=== PATIENT | female | born 1960 | race Caucasian/White ===

== ENCOUNTER 2020-06-06 02:25 | Outpatient (CLI) | payer OTHER, SELFPAY ==
[2020-06-06 09:34] LABS: BUN 16 mg/dL (7-18); CREATININE 0.89 mg/dL (0.55-1.02); Calcium 8.8 mg/dL (8.5-10.1); Calculated LDL 162 mg/dL (<100); Chloride 104 mmol/L (98-107); Cholesterol 246 mg/dL (<200); Glucose 99 mg/dL (74-106); HDL Cholesterol 69 mg/dL (40-60); Potassium 4.6 mmol/L (3.5-5.1); Sodium 138 mmol/L (136-145); Triglyceride 77 mg/dL (<150)
== END 2020-06-06 02:45 ==
PROVIDERS: PCP Nurse Practitioner Family; Visit Provider Nurse Practitioner Family
DX: E78.5 Hyperlipidemia, unspecified (principal); M85.80 Other specified disorders of bone density and structure, unspecified site
CPT/HCPCS: 36415; 80048; 80061; 82306

== ENCOUNTER 2020-07-19 02:10 | Outpatient (CLI) | payer OTHER, SELFPAY ==
--- NOTE | 2020-07-19 12:55 | DI.DEXA_ITS ---
EXAM: XR DEXA BONE DENSITY W/WO LIGIA CLINICAL HISTORY: Osteopenia,M85.80 TECHNIQUE: [employer] C densitometer COMPARISON: No exams were available for comparison FINDINGS: The lateral view of the thoracic in the lumbar spine shows no evidence compression fracture. Bone mineral density measurements of the lumbar spine correspond to a total T-score of -0.5, in the n ormal range. The bone mineral density measurements of the left hip correspond to a total T-score of -1.4 and a fem oral neck T-score of -2.1, in the osteopenic range. The bone mineral density measurements of the left forearm correspond to a T-score in the distal 3rd o f -0.1, in the normal range. IMPRESSION: Osteopenia of the left hip. Normal bone mineral density of the lumbar spine and left forearm.
--- NOTE | 2020-07-19 13:49 | DI.MAMMO_ITS ---
EXAM: MAMMO SCREENING CLINICAL HISTORY: screening,Z12.39 TECHNIQUE: Mammograms were interpreted according to the usual protocol including computer analysis w [employer] CAD system, tomosynthesis and C-view imaging. COMPARISON: 2010 through 2017 [facility] FINDINGS: The breasts are composed of heterogeneously dense fibroglandular densities, Breast Density category C . No suspicious masses or suspicious microcalcifications are seen. Vascular calcifications are inciden tally noted. No skin thickening or abnormal axillary lymph nodes are seen. There has been no significant change from prior exams. IMPRESSION: BI-RADS Category 1, Negative mammogram. Yearly screening mammography is recommended. Breast Density Category C, heterogeneously Dense. The mammogram demonstrates the patient's breast tissue is dense. Dense breast tissue is very common a nd is not abnormal but dense breast tissue can make it harder to find cancer on a mammogram. Also, de nse breast tissue may increase breast cancer risk. This information about the result of the mammogram report was provided to the patient to raise their awareness. Use this report when you speak with the patient about their risks for breast cancer, which includes their family history. At that time, you may recommend additional screening tests (Ultrasound or MRI) as they might be useful based on their r isk. A negative radiographic report should not delay biopsy if a dominant or clinically suspicious mass is present. Up to ten percent of cancers are not identified on mammography. A negative report may reinforce clinical impression. Adenosis and dense breasts may obscure an underlying neoplasm. False positive reports average 6 to 10%.
== END 2020-07-19 02:30 ==
PROVIDERS: PCP Nurse Practitioner Family; Visit Provider Nurse Practitioner Family
DX: Z12.31 Encounter for screening mammogram for malignant neoplasm of breast (principal); M85.88 Other specified disorders of bone density and structure, other site; R92.1 Mammographic calcification found on diagnostic imaging of breast
CPT/HCPCS: 77063; 77067; 77080

== ENCOUNTER 2021-04-26 08:07 | Day surgery (SDC) | payer OTHER, SELFPAY ==
[2021-04-26 08:23] VITALS: BP 149/73; PULSE 77; RESP 16; TEMP 36.2; O2SAT 97
[2021-04-26] MEDS: Lactated Ringers 1,000 ML 80 ML IV (08:35)
--- NOTE | 2021-04-26 08:38 | W.ANESPRE ---
General Info Date of Service Date Performed: 04/26/21 Height: 5 ft 8.11 in Weight: 74.3 kg Body Mass Index (BMI): 24.8 Surgical Procedure: Operation Date: 04/26/21 09:20 Proposed Procedures Side Surgeon paola Monsalve, DO Meds Allergies and Home Medications Allergies Allergy/AdvReac Type Severity Reaction Status Date / Time bee venom protein (honey bee) Allergy Severe Unverified 04/26/21 08:18 cyclobenzaprine Allergy Severe Verified 04/26/21 08:18 hornet venom Allergy Severe Verified 04/26/21 08:18 venom-wasp Allergy Severe Verified 04/26/21 08:18 esomeprazole [From Nexium] Allergy Intermediate Verified 04/26/21 08:18 yellow dye Allergy Intermediate Verified 04/26/21 08:18 orphenadrine [From Norflex] Allergy Mild Verified 04/26/21 08:18 red (food color) AdvReac Intermediate Unverified 04/26/21 08:18 Home Medication Medication Instructions Recorded gabapentin 600 mg tablet 600 mg PO TID #270 tab 05/11/20 calcium carbonate 500 mg calcium 500 mg PO DAILY 04/12/21 (1,250 mg) tablet ibuprofen 200 mg capsule 200 mg PO Q6H PRN 04/12/21 cephalexin [Keflex] 500 mg PO QID 04/24/21 acetaminophen [Tylenol Extra 500 mg PO Q6H PRN 04/26/21 Strength] Current Visit Medications: Current Medications Generic Name Dose Route Start Last Admin Trade Name Freq PRN Reason Stop Dose Admin Ringer's Solution 1,000 mls @ 80 mls/hr 04/26/21 06:00 IV 05/25/21 23:59 INFUSION ARELI IV Miscellaneous Supplies 1 each 04/26/21 06:00 Iv Access IV 05/25/21 23:59 DIRECTED ARELI Sodium Chloride 0 ml 04/26/21 06:00 Normal Saline Flush 10 Ml Syr IV 05/25/21 23:59 PRN PRN Sodium Chloride 0 ml 04/26/21 06:00 Normal Saline 10 Ml Vial IJ 05/25/21 23:59 DIRECTED PRN Sterile Water 0 ml 04/26/21 06:00 Water,Injection,Sterile 10 Ml Vial IJ 05/25/21 23:59 DIRECTED PRN PFSH Active Problems Active Problems: Problem Status Onset Code Degenerative disc disease, lumbar M51.36 Osteopenia M85.80 Hyperlipidemia E78.5 Medical History Medical History Degenerative disc disease, lumbar Hyperlipidemia Lumbar disc herniation Osteopenia Scoliosis Surgical History Surgical History S/P cervical discectomy (03/23/17) C7 S/P colonoscopy (~2009) S/P left rotator cuff repair (09/24/18) and SLAP Type II repair S/P medial meniscus repair of left knee (12/01/10) Status post lumbar laminectomy (~07/2012) Of L5-S1 with left L4-L5 hemilaminotomy, medial facetectomy, foraminotomy Status post ORIF of fracture of ankle (06/27/19) Right ankle Tobacco Smoking/Tobacco Use Status: Former Tobacco Use Passive smoking exposure: Yes Second hand exposure: Yes Alcohol Alcohol Intake: current Alcohol intake frequency: 0-2 drinks per day Alcohol type: beer Substance Use Substance use: Never Substance use type: does not use Prental History History 0 Para Hx # Term Pregnancies Multiple births Hx # Pregnancies Ectopic pregnancies AB induced Hx Number of Living Children AB spontaneous Vital Signs and Lab Results Vital Signs Most Recent Vital Signs in EMR: Most Recent Vital Signs Temp Pulse Resp BP Pulse Ox 36.2 C L 77 16 149/73 H 97 04/26/21 08:23 04/26/21 08:23 04/26/21 08:23 04/26/21 08:23 04/26/21 08:23 Lab Results Blood Type / Crossmatch: No Data to Display Complete Blood Count: No Data to Display Complete Metabolic Panel: No Data to Display Liver Function Panel: No Data to Display Coagulation Panel: No Data to Display Cardiac Panel: No Data to Display Arterial Blood Gas: No Data to Display Venous Blood Gas: No Data to Display Pancreas Panel: No Data to Display Thyroid Panel: No Data to Display Infectious Disease: No Data to Display Blood Cultures: No Data to Display Toxicology Panel: No Data to Display Anesthesia Assessment and Plan Anesthesia History Personal History: No History of Anesthesia Complications Family History: No Family History of Anesthesia Complications Exercise Tolerance Exercise Tolerance: Metabolic Equivalents>4 Pertinent Negatives Pertinent Negatives: No Symptoms of GERD, No Major Cardiovascular Symptoms or Complaints, No Major Pulmonary Symptoms or Complaints and No History of CVA/TIA Cardiac & Pulmonary Exam Cardiac Exam: Normal S1/S2 Heart Sounds Pulmonary Exam: Clear Bilateral Breath Sounds Airway Exam Known Difficult Airway: No Mallampati Class: 1 Mouth Opening: Normal (> 3cm) Thyromental Distance: Greater than 3 cm Neck Range of Motion: Full ROM Neck Circumference: Normal Teeth Condition: Normal Dentition ASA Classification ASA Score: ASA 2 Emergency Case?: No NPO Status NPO Status: NPO Clears >2 hours, Solids >8 hours Anesthesia Plan Resuscitation Status: Full Code Anesthesia Technique: General Anesthesia Airway Planned: Natural Airway Monitors Used: Standard Monitors
[2021-04-26 08:44] VITALS: BMI 24.8
--- NOTE | 2021-04-26 09:40 | W.COLOREPORT ---
Date of service: 04/26/21 Time of Service: 09:40 Colonoscopy Report Date of procedure: 04/26/21 Pre-op diagnosis general: sreening Post-op diagnosis procedure note: other (divertic ) Surgeon: Yola Monsalve Anesthesia Type: General:No Airway Estimated blood loss (mL): 0 Pathology: none sent Complications: None Disposition: same day Prep: Miralax/Dulcolax Retraction Time: 9 mins Procedure Description: After informed consent was obtained the patient was taken to the procedure room and placed in a left decubitous position. Monitors were applied and a time out was done. The patients name, date of , procedure, allergies to medications and metal in their body was reviewed. The patient was then sedated. Once sedated and comfortable a rectal exam was done. External exam was normal. Internal exam revealed a normal sphincter tone and no palpable masses. The scope was then introduced and retrofelexed. No internal hemorrhoids were identified. The scope was then advanced to the cecum without good difficulty. The TI and appendiceal orifice were identified. The prep was good. The scope was then slowly retracted over 9 minutes back into the rectum. There are no polyps or AVMs visualized today. She has the very beginnings of diverticula, and there are just a few small scattered diverticuli in the sigmoid colon. There is no signs of active bleeding or infection.. The scope was removed and the patient was woken up and taken back to Same day surgery in stable condition. The patient tolerated the procedure well and there were no immediate complications. Follow up: The patient should follow up in 10 years unless they develop changes in bowel habits or other new gastrointestinal complaints.
[2021-04-26 09:42] VITALS: BP 110/57; PULSE 72; RESP 20; TEMP 36.5; O2SAT 95
--- NOTE | 2021-04-26 09:44 | PDOC.DSDIS_ITS ---
Discharge Plan Disposition Patient Disposition: HOME Condition: Good Discharge Details Reason For Visit: colon scope Attending Provider: Yola Monsalve Primary Care Provider: Savannah Brown Home Meds and New Rx's Prescriptions: Continued gabapentin 600 mg tablet 600 mg PO TID Qty: 270 RF: 4 calcium carbonate [Calcium 500] 500 mg calcium (1,250 mg) tablet 500 mg PO DAILY RF: 0 ibuprofen [Motrin IB] 200 mg capsule 200 mg PO Q6H PRNRF: 0 cephalexin 500 mg Capsule 500 mg PO QID RF: 0 acetaminophen [Tylenol Extra Strength] 500 mg Tablet 500 mg PO Q6H PRNRF: 0 Discharge Instructions Additional Instructions: DSU Colonoscopy Post- Op Instructions Instructions for Everyone who is given Anesthesia: For your safety, please do the following for the next twenty-four (24) hours: *Do Not operate a motor vehicle (car, truck, motorcycle, etc.) *Do Not drink alcoholic beverages or use any recreational drugs for the first 24 hours or while taking pain medications. The medications in your body may have a reaction that can be dangerous. *Do Not make any important decisions or sign any important papers. Findings: very few divertic. otherwise normal Make sure you are moving your bowels on a regular basis and avoid straining. IF you find that you are experiencing constipation- than start a fiber supplement, such as metamucil or benefiber Follow up:repeat in 10 yrs time 1. No lifting over 20 pounds or strenuous activity for the first 24 hours after your procedure. After 24 hours there are no restrictions on your activity but you may feel fatigued for a few days. 2. After you arrive home you may have a light meal and return to your normal diet as you can tolerate it without feeling sick to your stomach. 3. You may have a bloated, gaseous feeling in your belly (abdomen) after a colonoscopy. Passing gas and belching will help. Walking or lying down on your left side with your knees flexed may relieve the discomfort. Call the office at [phone] (Office) or [phone] (Hospital) right away if you notice any of the following: a.Vomiting of blood or ?coffee ground stools?. b.Rectal bleeding 1Tbsp, blood clots or continuous bleeding. c.Severe belly (abdominal) pain. d.A hard distended belly (abdomen) and an inability to pass gas. 4. Please don?t expect to have a normal BM (bowel movement) for 2-3 days after your procedure. 5. If there are questions regarding the findings of your procedure, please contact your doctor 6. If you are unable to contact your doctor with a problem, contact the hospital at [phone]. 7. Continue all your regular medications unless directed otherwise. I understand the above instructions and have no questions. Signature of Patient or Adult Escort Name of Responsible Adult Escort Signature of Nurse Date/Time Activity:: see above Diet:: see above Discharge Orders Discharge Orders: Discharge Order (Routine); Ordered 04/25/21 Ordered By: Yola Monsalve DS: Diagnosis Discharge Diagnosis (1) Diverticula of colon: Status: Acute
[2021-04-26 10:13] VITALS: BP 122/71; PULSE 62; RESP 16; TEMP 36.2; O2SAT 98
--- NOTE | 2021-04-26 10:42 | W.ANESPOSTOP ---
Postoperative Evaluation Date, Time and Location Date Performed: 04/26/21 Time Performed: 10:20 Patient Location: Day Surgery Unit Vital Signs Most Recent Imported Vital Signs: Most Recent Vital Signs Temp Pulse Resp BP Pulse Ox 36.2 C L 62 16 122/71 98 04/26/21 10:13 04/26/21 10:13 04/26/21 10:13 04/26/21 10:13 04/26/21 10:13 Pain Score Most Recent Pain Score: Most Recent Pain Score Pain Level 0 04/26/21 10:13 Assessment Mental Status: Awake (Alert & Oriented to Patient Baseline) Airway and Respiratory Function: Patent airway with normal (patient baseline) respiratory exam Cardiovascular Function: Hemodynamically Stable Hydration Status: Adequately Hydrated Nausea & Vomiting: No Nausea or Vomiting Pain: Pt. Denies Any Pain Peripheral Nerve Block: Patient did not receive a nerve block
== END 2021-04-26 10:25 | disposition home or self-care (01) ==
PROVIDERS: PCP Nurse Practitioner Family; Visit Provider Surgery
PROC: 0DJD8ZZ Inspection of Lower Intestinal Tract, Via Natural or Artificial Opening Endoscopic (ICD-10-PCS; CPT 45378; principal; 2021-04-26 09:15)
DX: Z12.11 Encounter for screening for malignant neoplasm of colon (principal); K57.30 Diverticulosis of large intestine without perforation or abscess without bleeding
CPT/HCPCS: 45378; J2001

== ENCOUNTER 2021-05-22 02:32 | Outpatient (CLI) | payer OTHER, SELFPAY ==
[2021-05-22 13:09] LABS: Anion Gap 7.7 mmol/L (3-11); BUN 17 mg/dL (7-18); CO2 30.3 mmol/L (21.0-32.0); CREATININE 0.8 mg/dL (0.55-1.02); Calcium 9.3 mg/dL (8.5-10.1); Calculated LDL 201 mg/dL (<100); Chloride 102 mmol/L (98-107); Cholesterol 292 mg/dL (<200); Glucose 91 mg/dL (74-106); HDL Cholesterol 79 mg/dL (40-60); Potassium 4.5 mmol/L (3.5-5.1); Sodium 140 mmol/L (136-145); TSH 1.34 uIU/mL (0.36-3.74); Triglyceride 61 mg/dL (<150)
[2021-05-22 13:25] LABS: FREE T4 0.85 ng/dL (0.76-1.46)
== END 2021-05-22 02:33 | disposition home or self-care (01) ==
PROVIDERS: PCP Nurse Practitioner Family; Visit Provider Nurse Practitioner Family
DX: E78.5 Hyperlipidemia, unspecified (principal); E04.9 Nontoxic goiter, unspecified
CPT/HCPCS: 36415; 80048; 80061; 84439; 84443

== ENCOUNTER 2021-07-22 00:16 | Outpatient (CLI) | payer OTHER, SELFPAY ==
--- NOTE | 2021-07-22 06:30 | DI.MAMMO_ITS ---
Exam(s) MAMMO SCREENING EXAM: MAMMO SCREENING CLINICAL HISTORY: screening,Z12.39. TECHNIQUE: Bilateral full field digital CC and MLO mammographic images were obtained with 3D tomosyn thesis and utilizing computer aided detection (CAD). COMPARISON: Prior mammograms dating back to 2011, the most recent being June 2020. FINDINGS: Fibroglandular tissue pattern is moderately dense, this decreasing the sensitivity mammogram for find ing hidden underlying lesions. There are no new spiculated masses nor malignant appearing microcalcification groups. There is no significant architectural distortion nor skin thickening-retraction. IMPRESSION: Moderately dense fibroglandular tissue. No obvious radiographic evidence of malignancy nor significa nt change compared to prior studies listed above. BI-RADS Cat 1 - Negative Breast Density - Category C - Heterogeneously dense Breast density Category C or D implies that the patient has dense breast tissue. Dense breast tissue can make it harder to find cancer on a mammogram. Dense breast tissue is also associated with an incr eased risk of breast cancer. This information about the result of the mammogram report was provided to the patient to raise their awareness. Use this report when you speak with the patient about their risks for breast cancer, which includes their family history. At that time, you may recommend additional screening tests (Ultrasoun d or MRI) as these tests may add significant information. A negative radiographic report should not delay biopsy if a dominant or clinically suspicious mass is present. Up to ten percent of cancers are not identified on mammography. A negative report may reinforce clinical impression. Adenosis and dense breasts may obscure an underlying neoplasm. False positive reports average 6 to 10%. Patient will receive a letter notifying them of these results.
== END 2021-07-22 00:36 ==
PROVIDERS: PCP Nurse Practitioner Family; Visit Provider Nurse Practitioner Family
DX: Z12.31 Encounter for screening mammogram for malignant neoplasm of breast (principal)
CPT/HCPCS: 77063; 77067

== ENCOUNTER 2021-10-25 15:03 | Emergency (ER) | payer OTHER, SELFPAY ==
[2021-10-25] VITALS (12 sets, daily range): BP systolic 109–171; BP diastolic 61–112; PULSE 64–80; RESP 14–21; TEMP 36.4; O2SAT 96–100
--- NOTE | 2021-10-25 15:49 | ED.GENADUL_ITS ---
Discharge Plan Disposition Patient Disposition: HOME Condition: Improving Discharge Details Chief Complaint: Nk/Back Pain Clinical Impression: Degenerative disc disease, lumbar Primary Care Provider: Savannah Brown ED Provider: Paxton Beckman Home Meds and New Rx's Prescriptions: New prednisone 50 mg tablet 50 mg PO DAILY 5 Days Qty: 5 RF: 0 oxycodone-acetaminophen [Endocet] 5-325 mg tablet 1 tab PO TID PRNQty: 7 RF: 0 Continued calcium carbonate [Calcium 500] 500 mg calcium (1,250 mg) tablet 500 mg PO DAILY RF: 0 ibuprofen [Motrin IB] 200 mg capsule 200 mg PO Q6H PRNRF: 0 gabapentin 600 mg tablet 600 mg PO TID Qty: 270 RF: 4 epinephrine 0.3 mg/0.3 mL auto-injector 0.3 ml IM Q5-15M PRN (Reason: hypersensitivity reaction) Qty: 2 RF: 4 rosuvastatin 5 mg tablet 5 mg PO DAILY Qty: 90 RF: 4 acetaminophen [Tylenol Extra Strength] 500 mg Tablet 500 mg PO Q6H PRNRF: 0 cetirizine [Zyrtec] 10 mg Tablet 10 mg PO PRN PRNRF: 0 Discharge Instructions Instructions: Acute Low Back Pain (ED) Additional Instructions: Your MRI shows degenerative changes throughout. There is a disc bulge at L4-5. There is prominence of the osteophyte disc complex to the left at L5-S1. Please call [facility] neurosurgery for a follow-up appointment. Take prednisone as prescribed. May use the provided prescription of Percocet if needed for severe or breakthrough pain. May use the provided Zofran if needed for nausea. Return to the emergency department for any acute concerns. Medical Decision Making 61-year-old female with a history of previous L4-5 S1 disc disease, status post discectomy with residual left leg numbness but no motor weakness or foot drop. She reports days of worsening and recurrent left low back pain that radiates to her buttock but not to the leg. It is worse with movement. Today she used the treadmill and did stretching and then had increasing onset of worsening pain. No loss of bowel or bladder control. She took Motrin at home earlier today. Patient does have diminished sensation is noted in exam but no motor weakness. Great toe proprioception is intact and reflexes at the patella are symmetric bilaterally. The access established home parenteral medications administered including anti- inflammatories. Patient referred for an MRI of the lumbar spine. MRI reveals multilevel degenerative changes with central and neuroforaminal stenosis. Most marked at L4-5 and L5-S1. See formal report. We discussed disc bulge at L4-5 as well as osteophyte disc prominence at L5-S1. She is improving with analgesia. I consented her for the use of a narcotic. We will place her on a burst of steroid. She is stable and improving. Appropriate for discharge to home. HPI General Mode of arrival: EMS . Date/Time Provider Initiated Documentation: 10/25/21 15:10 . Limitations to Documentation: no limitations . Information obtained by: patient and EMS . History of Present Illness 61 year old F presents to the emergency department with the chief complaint of Left low back pain, described as moderate, severe and similar to prior episodes, Quality is described as constant, and is localized to the back and left. Patient reports no radiation. Patient started experiencing this day(s) and it has been intermittent. Movement improves symptom(s), Rest worsens symptoms . Patient notes other (No change to bowel or bladder habits); denies headaches, syncope and weakness. Patient did receive the following treatments prior to arrival, none Related Data Home Medications Medication Instructions Recorded Confirmed calcium carbonate 500 mg calcium 500 mg PO DAILY 04/12/21 10/25/21 (1,250 mg) tablet ibuprofen 200 mg capsule 200 mg PO Q6H PRN 04/12/21 10/25/21 acetaminophen [Tylenol Extra 500 mg PO Q6H PRN 04/26/21 10/25/21 Strength] epinephrine 0.3 mg/0.3 mL 0.3 ml IM Q5-15M PRN #2 ea 05/16/21 10/25/21 injection, auto-injector gabapentin 600 mg tablet 600 mg PO TID #270 tab 05/16/21 10/25/21 rosuvastatin 5 mg tablet 5 mg PO DAILY #90 tab 05/29/21 10/25/21 cetirizine [Zyrtec] 10 mg PO PRN PRN 10/25/21 10/25/21 oxycodone-acetaminophen [Endocet] 1 tab PO TID PRN #7 tab 10/25/21 prednisone 50 mg PO DAILY 5 Days #5 tab 10/25/21 Previous Rx's Medication Instructions Recorded epinephrine 0.3 mg/0.3 mL 0.3 ml IM Q5-15M PRN #2 ea 05/16/21 injection, auto-injector gabapentin 600 mg tablet 600 mg PO TID #270 tab 05/16/21 rosuvastatin 5 mg tablet 5 mg PO DAILY #90 tab 05/29/21 oxycodone-acetaminophen [Endocet] 1 tab PO TID PRN #7 tab 10/25/21 prednisone 50 mg PO DAILY 5 Days #5 tab 10/25/21 Allergies Allergy/AdvReac Type Severity Reaction Status Date / Time bee venom protein (honey bee) Allergy Severe Unverified 10/25/21 15:10 cyclobenzaprine Allergy Severe Verified 10/25/21 15:10 hornet venom Allergy Severe Verified 10/25/21 15:10 venom-wasp Allergy Severe Verified 10/25/21 15:10 esomeprazole [From Nexium] Allergy Intermediate Verified 10/25/21 15:10 yellow dye Allergy Intermediate Verified 10/25/21 15:10 orphenadrine [From Norflex] Allergy Mild Verified 10/25/21 15:10 red (food color) AdvReac Intermediate Unverified 10/25/21 15:10 General Stated Complaint: Nk/Back Pain SUE: 3 Review of Systems Narrative: States that she has chronic left lower extremity numbness. No weakness, no change of bowel or bladder habit. No recent illness. Immunized and boosted against COVID-19. 6 systems were reviewed and otherwise negative PFSH All Active Problems (Updated 10/25/21 @ 17:45 by Paxton Beckman MD) Hyperlipidemia (Chronic) Osteopenia (Chronic) Degenerative disc disease, lumbar (Chronic) Sigmoid diverticulosis (Acute) Medical History Lumbar disc herniation Scoliosis Surgical History History of colonoscopy (~04/26/21) S/P cervical discectomy (03/23/17) C7 S/P colonoscopy (~2009) S/P left rotator cuff repair (09/24/18) and SLAP Type II repair S/P medial meniscus repair of left knee (12/01/10) Status post lumbar laminectomy (~07/2012) Of L5-S1 with left L4-L5 hemilaminotomy, medial facetectomy, foraminotomy Status post ORIF of fracture of ankle (06/27/19) Right ankle Family History Mother , 89 Stroke Father , 87 lung cancer Lung cancer Sister No problems noted. Sister No problems noted. Sister Breast cancer Brother No problems noted. Brother , at 65 of lung cancer Lung cancer Brother No problems noted. Maternal Grandfather No problems noted. Maternal Grandmother Stroke Breast cancer in her 80s Lung cancer Paternal Grandfather Heart disease Paternal Grandmother No problems noted. Social History Smoking/Tobacco Use Status: Former Tobacco Use tobacco type: cigarettes Quit Date: 09/28/07 Tobacco: How many years used: 25 Second Hand Exposure: Yes Smoking risk assessment performed?: Yes Alcohol Intake: current Alcohol Intake frequency: a few times a week Alcohol type: beer Drug use: Current Sobriety Substance use type: does not use Caregiver/Support person: No Household members: spouse Housing: house Communication Needs: None Do you need help understanding health information?: Rarely Pets and animals: Yes Pets and animals: dog(s) Sexually active: Yes Do you think of yourself as: straight/heterosexual Current gender identity: female What is your relationship status?: How often do you talk on the phone with friends or family?: three or more times per week How often do you get together with friends or relatives?: once per week How often do you attend sabianism or oriental orthodox services?: 1-3 times per year Do you belong to any clubs or organized social groups?: no Panel score (0-1 are the most socially isolated patients): 2 What type of physical activity do you participate in: walking and weight lifting Duration: 30-45 minutes/day Frequency: 3-4 times per week Pepper/Yazidism: No preference Special pepper needs: No Seatbelt use: always Helmet use: Yes Helmet use: always Drive intox or ride w/intox street flusher driver: No Do you feel safe at home: Yes Do you feel safe in your relationship?: Yes History History 0 Para Hx # Term Pregnancies Multiple births Hx # Pregnancies Ectopic pregnancies AB induced Hx Number of Living Children AB spontaneous Exam Narrative Exam Narrative: GEN: awake, alert, oriented 3. Pleasant, well groomed, interactive. HEAD: Normocephalic, atraumatic ENT: Mucous membranes moist, oropharynx unremarkable, External ear exam unremarkable EYES: PERRL, EOMI NECK: Full ROM, no LEON, no menigismus CHEST/RESP: Nontender, clear to auscultation bilateral, no wheeze/rhonchi/rales CARDIOVASCULAR: RRR, no murmur, rub parker. 2+ Rad pulse bilateral ABDOMEN: Soft, nontender, no mass. +Bowel sounds EXT: Full ROM, pain when extending the left leg against gravity but she is able to hold off the bed. Great toe proprioception intact bilaterally. Diminished sensation in the left leg both medial lateral thigh, lateral calf and lateral foot. Medial calf intact. Left SI joint is tender to palpation there is para muscular spasm present. 1+ reflex at the patella bilaterally Neuro: Grossly normal neurologic exam, conversant, interactive. Psych: Speech fluent, thoughts congruent, affect normal Course Vital Signs Vital signs: Vital Signs Temperature 36.4 C L 10/25/21 15:02 Pulse 80 10/25/21 15:02 Respiratory Rate 18 10/25/21 15:02 Blood Pressure 171/91 H 10/25/21 15:02 Pulse Oximetry 99 10/25/21 15:02 Temperature 36.4 C L 10/25/21 15:02 Temperature Source Skin 10/25/21 15:02 Pulse 70 10/25/21 15:26 Respiratory Rate 18 10/25/21 15:02 Respiratory Effort 10/25/21 15:12 Blood Pressure 136/112 H 10/25/21 15:26 Blood Pressure Mean 116 10/25/21 15:26 Blood Pressure Position Sitting 10/25/21 15:02 Pulse Oximetry 99 10/25/21 15:26 Oxygen Delivery Method Room Air 10/25/21 15:02 Oxygen Flow Rate 0 10/25/21 15:02 Pain Level 8 10/25/21 15:14
[2021-10-25] MEDS: HYDROmorphone 2 MG/ML VIAL 0.5 MG IVP (15:51)
--- NOTE | 2021-10-25 16:20 | DI.MRI_ITS ---
Exam(s) MR LUMBAR SPINE WO EXAM: MR LUMBAR SPINE WO CLINICAL HISTORY: L sided pain, prev Lumbar discectomy. TECHNIQUE: Multiplanar multisequence MRI of the Lumbar spine was performed. COMPARISON: CR XR DEXA BONE DENSITY W/WO LIGIA from 07/19/2020 FINDINGS: Bones: The last intervertebral disc space is designated the L5/S1 level for the numbering purpose of this examination. The vertebral body heights are well maintained. There is a left convex scoliosis of the lumbar spine. Degenerative endplate signal changes are seen particularly at L5-S1. Cord: The conus tip ends at the L1 level. It is of normal size and signal intensity. T12-L1: No disc herniations or bulges are present. No central spinal canal or neural foraminal stenos is. L1-2: No disc herniations or bulges are present. No central spinal canal or neural foraminal stenosis . L2-3: There is a mild diffuse disc bulge. No central spinal canal or neural foraminal stenosis. L3-4: No disc herniations or bulges are present. No central spinal canal or neural foraminal stenosis . L4-5: There is a diffuse disc bulge. It is eccentric to the right. Degenerative changes of the face ts and ligamentum flavum are noted. There is moderate narrowing of the central spinal canal. There is moderate right and mild left neural foraminal stenosis. L5-S1: There is prominence of the osteophyte disc complex eccentric to the left. No significant cent ral spinal canal stenosis. There are degenerative changes of the facets present. There is mild righ t and moderately severe left neural foraminal stenosis. Soft tissues: The visualized SI joints and sacrum are well maintained. The paraspinal soft tissues ar e unremarkable. IMPRESSION: Multilevel degenerative changes in the lumbar spine resulting in central spinal canal and neural fora lisa stenosis. Findings are most marked at L4-5 and L5-S1. Please see the above discussion for com plete details. DATA REPOSITORY:
[2021-10-25] MEDS: MAGNESIUM SULFATE 1 GM/100 ML BAG IVPB (16:30)
[2021-10-25] MEDS: ACETAMINOPHEN 1,000 MG/100 ML BTL 400 MG IVPB (16:30)
[2021-10-25] MEDS: Dexamethasone 10 MG/ML VIAL IVP (16:30)
[2021-10-25] MEDS: Normal Saline 1,000 ML 1000 ML IV (16:30)
[2021-10-25 17:41] LABS: Bilirubin Negative (Negative); Blood Negative (Negative); Clarity Cloudy (Clear); Glucose Negative (Negative); Ketones Negative (Negative); Leukocyte Esterase Negative (Negative); Nitrite Negative (Negative); Urobilinogen 0.2 EU/dL (Up TO 0.2); pH 7.5 (5-8)
[2021-10-25] MEDS: Ondansetron O.D.T. 4 MG TABEF, 3 TABS/BTL PO (17:57)
== END 2021-10-25 18:11 | disposition home or self-care (01) ==
PROVIDERS: Emergency Provider Emergency Medicine; PCP Nurse Practitioner Family
DX: M51.36 Other intervertebral disc degeneration, lumbar region (principal)
CPT/HCPCS: 96361; 96365; 96375; 99284; 72148; 81003; J0131; J1100; J3475

== ENCOUNTER 2021-10-27 04:47 | Emergency (ER) | payer OTHER, SELFPAY ==
[2021-10-27 04:52] VITALS: BP 152/80; PULSE 80; RESP 18; TEMP 36.4; O2SAT 96
--- NOTE | 2021-10-27 05:10 | ED.GENADUL_ITS ---
Discharge Plan Disposition Patient Disposition: HOME Condition: Good Discharge Details Clinical Impression: Degenerative disc disease, lumbar Primary Care Provider: Savannah Brown ED Provider: Maksim Romo Home Meds and New Rx's Prescriptions: Continued calcium carbonate [Calcium 500] 500 mg calcium (1,250 mg) tablet 500 mg PO DAILY RF: 0 ibuprofen [Motrin IB] 200 mg capsule 200 mg PO Q6H PRNRF: 0 gabapentin 600 mg tablet 600 mg PO TID Qty: 270 RF: 4 epinephrine 0.3 mg/0.3 mL auto-injector 0.3 ml IM Q5-15M PRN (Reason: hypersensitivity reaction) Qty: 2 RF: 4 rosuvastatin 5 mg tablet 5 mg PO DAILY Qty: 90 RF: 4 acetaminophen [Tylenol Extra Strength] 500 mg Tablet 500 mg PO Q6H PRNRF: 0 cetirizine [Zyrtec] 10 mg Tablet 10 mg PO PRN PRNRF: 0 prednisone 50 mg tablet 50 mg PO DAILY 5 Days Qty: 5 RF: 0 Discontinued oxycodone-acetaminophen [Endocet] 5-325 mg tablet 1 tab PO TID PRNQty: 7 RF: 0 Discharge Instructions Instructions: Back Pain (ED) Additional Instructions: At this time your MRI is reassuring. The results were reviewed with Dr. Webster from [facility]. At this time he sees no significant changes from your MRI in 2017 till now. Additionally thankfully your exam shows no clinical evidence of emergent surgical abnormality. Please continue to take the steroids, ibuprofen/Tylenol, and the narcotic pills only as needed. We have placed a referral with the [facility] spine center, they will contact you for an appointment time. Please call your primary care provider on Thursday to inform them of the recent work-ups you have received. If you notice any worsening of your symptoms, or any new symptoms such as vomiting, diarrhea, fever, chills, shortness of breath, chest pain, worsening numbness or tingling in your groin or legs, weakness in your legs, loss of control for your bowels or bladder, or fainting , please return immediately to the emergency department for reevaluation. Please follow up with your primary care provider as soon as possible for reassessment and reevaluation. As always, it was a pleasure participating in your medical care today. Referrals: Savannah Brown NP [Primary Care Provider] - Medical Decision Making This is a 61-year-old female with a past medical history of previous L4-5 S1 disc disease, status post discectomy with residual left leg numbness who presents today for back pain. Patient was evaluated 2 days ago on Thursday by Dr. Paxton Beckman. At that time after discussion with the patient's an MRI was ordered, MRI demonstrated Multilevel degenerative changes in the lumbar spine resulting in central spinal canal and neural foraminal stenosis. Findings are most marked at L4-5 and L5-S1. There is no evidence of neurosurgical emergency clinically or radiographically at that time, and the patient was discharged home with narcotic, steroid burst, who is already on gabapentin. Since then the patient has had continued pain in the left L1 dermatome. She st ates that it is a burning aching sensation. She states that it is relatively unchanged from her previous visit. She does have chronic left leg numbness which she states is unchanged. She denies any bowel or bladder incontinence. She denies any saddle anesthesia, or change in sensation with wiping. She denies any new weakness. She has been taking all the medications described in test finished the bottle of Heath without any improvement of her symptoms. She has not been able to schedule follow-up with her neurology group since it is the weekend. She has no other complaints at this time. Pain is made worse with movement. She denies any IV or illicit drug use. She denies any fever or chills. She denies any urinary complaints. Physical exam demonstrates no signs or symptoms concerning for cauda equina syndrome currently. Patient does have subjective burning pain in the left anterior lateral L1-L2 dermatome. No significant weakness of the lower extremity. No bowel or bladder incontinence. She has normal rectal tone on exam. No reproducible abdominal tenderness. At this time symptoms appear consistent with lumbar radiculopathy causing the sensation of pain that she is h aving. Unfortunately she is not had improvement steroids or NSAIDs. She has utilized all of her narcotic pain medications. Her who is present on the phone was a part of our conversation. We discussed how she is currently on the ideal treatment and that there is thankfully no clinical evidence at this time on exam of a neurosurgical emergency. has requested transfer to [facility]. I did discuss with the patient and that with no evidence of neurosurgical emergency that transfer would not be needed at this time. then requested that a neurosurgeon review the images prior to discharge. We will reach out to [facility] for further discussion of this. We will give IM morphine in the meantime to help with the patient's pain. 5:41 AM Discussed the case with Dr. Webster of [facility] neurosurgery. He reviewed the MRI from 2017 as well as the MRI from 2 days ago. At this time he sees no evidence of emergent surgical abnormality. In fact he is encouraged since he has no significant changes between the previous and current MRI. He does agree with the current management of NSAIDs, steroids, and narcotics as needed. He does recommend close outpatient follow-up. We will place a referral with the [facility] spine center. I spent time discussing with the patient and her signs and symptoms concerning that would require emergent reevaluation in the ER understand. We will recommend continuation of her home medications. We will give her 4 Heath tablets in the meantime. I have extensively reviewed the treatment plan and discharge instructions with the patient and their family. I have addressed all patient concerns at this time. The patient and family was made aware of what symptoms to monitor for that would warrant a return to the emergency department. Discussed the plan with the patient and family, they demonstrate verbal understanding and agreement with our assessment and plan at this time. The documentation in this chart was dictated using [employer] dictation software. Please excuse any dictation errors. FINDINGS: Bones: The last intervertebral disc space is designated the L5/S1 level for the numbering purpose of this examination. The vertebral body heights are well maintained. There is a left convex scoliosis of the lumbar spine. Degenerative endplate signal changes are seen particularly at L5-S1. Cord: The conus tip ends at the L1 level. It is of normal size and signal intensity. T12-L1: No disc herniations or bulges are present. No central spinal canal or neural foraminal stenosis. L1-2: No disc herniations or bulges are present. No central spinal canal or neural foraminal stenosis. L2-3: There is a mild diffuse disc bulge. No central spinal canal or neural foraminal stenosis. L3-4: No disc herniations or bulges are present. No central spinal canal or neural foraminal stenosis. L4-5: There is a diffuse disc bulge. It is eccentric to the right. Degenerative changes of the facets and ligamentum flavum are noted. There is moderate narrowing of the central spinal canal. There is moderate right and mild left neural foraminal stenosis. L5-S1: There is prominence of the osteophyte disc complex eccentric to the left. No significant central spinal canal stenosis. There are degenerative changes of the facets present. There is mild right and moderately severe left neural foraminal stenosis. Soft tissues: The visualized SI joints and sacrum are well maintained. The paraspinal soft tissues are unremarkable. IMPRESSION: Multilevel degenerative changes in the lumbar spine resulting in central spinal canal and neural foraminal stenosis. Findings are most marked at L4-5 and L5- S1. Please see the above discussion for complete details. HPI General Date/Time Provider Initiated Documentation: 10/27/21 04:49 . HPI Narrative: This is a 61-year-old female with a past medical history of previous L4-5 S1 disc disease, status post discectomy with residual left leg numbness who presents today for back pain. Patient was evaluated 2 days ago on Thursday by Dr. Paxton Beckman. At that time after discussion with the patient's an MRI was ordered, MRI demonstrated Multilevel degenerative changes in the lumbar spine resulting in central spinal canal and neural foraminal stenosis. Findings are most marked at L4-5 and L5-S1. There is no evidence of neurosurgical emergency clinically or radiographically at that time, and the patient was discharged home with narcotic, steroid burst, who is already on gabapentin. Since then the patient has had continued pain in the left L1 dermatome. She states that it is a burning aching sensation. She states that it is relatively unchanged from her previous visit. She does have chronic left leg numbness which she states is unchanged. She denies any bowel or bladder incontinence. She denies any saddle anesthesia, or change in sensation with wiping. She denies any new weakness. She has been taking all the medications described in test finished the bottle of Heath without any improvement of her symptoms. She has not been able to schedule follow-up with her neurology group since it is the weekend. She has no other complaints at this time. Pain is made worse with movement. She denies any IV or illicit drug use. She denies any fever or chills. She denies any urinary complaints. Related Data Home Medications Medication Instructions Recorded Confirmed calcium carbonate 500 mg calcium 500 mg PO DAILY 04/12/21 10/25/21 (1,250 mg) tablet ibuprofen 200 mg capsule 200 mg PO Q6H PRN 04/12/21 10/25/21 acetaminophen [Tylenol Extra 500 mg PO Q6H PRN 04/26/21 10/25/21 Strength] epinephrine 0.3 mg/0.3 mL 0.3 ml IM Q5-15M PRN #2 ea 05/16/21 10/25/21 injection, auto-injector gabapentin 600 mg tablet 600 mg PO TID #270 tab 05/16/21 10/25/21 rosuvastatin 5 mg tablet 5 mg PO DAILY #90 tab 05/29/21 10/25/21 cetirizine [Zyrtec] 10 mg PO PRN PRN 10/25/21 10/25/21 prednisone 50 mg PO DAILY 5 Days #5 tab 10/25/21 Previous Rx's Medication Instructions Recorded epinephrine 0.3 mg/0.3 mL 0.3 ml IM Q5-15M PRN #2 ea 05/16/21 injection, auto-injector gabapentin 600 mg tablet 600 mg PO TID #270 tab 05/16/21 rosuvastatin 5 mg tablet 5 mg PO DAILY #90 tab 05/29/21 prednisone 50 mg PO DAILY 5 Days #5 tab 10/25/21 Allergies Allergy/AdvReac Type Severity Reaction Status Date / Time bee venom protein (honey bee) Allergy Severe Unverified 10/25/21 15:10 cyclobenzaprine Allergy Severe Verified 10/25/21 15:10 hornet venom Allergy Severe Verified 10/25/21 15:10 venom-wasp Allergy Severe Verified 10/25/21 15:10 esomeprazole [From Nexium] Allergy Intermediate Verified 10/25/21 15:10 yellow dye Allergy Intermediate Verified 10/25/21 15:10 orphenadrine [From Norflex] Allergy Mild Verified 10/25/21 15:10 red (food color) AdvReac Intermediate Unverified 10/25/21 15:10 General Stated Complaint: Orthopedic SUE: 4 Review of Systems All systems reviewed & are unremarkable except as noted in HPI and below PFSH All Active Problems (Updated 10/27/21 @ 05:36 by Maksim Romo DO) Hyperlipidemia (Chronic) Osteopenia (Chronic) Degenerative disc disease, lumbar (Chronic) Sigmoid diverticulosis (Acute) Medical History Lumbar disc herniation Scoliosis Surgical History History of colonoscopy (~04/26/21) S/P cervical discectomy (03/23/17) C7 S/P colonoscopy (~2009) S/P left rotator cuff repair (09/24/18) and SLAP Type II repair S/P medial meniscus repair of left knee (12/01/10) Status post lumbar laminectomy (~07/2012) Of L5-S1 with left L4-L5 hemilaminotomy, medial facetectomy, foraminotomy Status post ORIF of fracture of ankle (06/27/19) Right ankle Family History Mother , 89 Stroke Father , 87 lung cancer Lung cancer Sister No problems noted. Sister No problems noted. Sister Breast cancer Brother No problems noted. Brother , at 65 of lung cancer Lung cancer Brother No problems noted. Maternal Grandfather No problems noted. Maternal Grandmother Stroke Breast cancer in her 80s Lung cancer Paternal Grandfather Heart disease Paternal Grandmother No problems noted. Social History Smoking/Tobacco Use Status: Former Tobacco Use tobacco type: cigarettes Quit Date: 09/28/07 Tobacco: How many years used: 25 Second Hand Exposure: Yes Smoking risk assessment performed?: Yes Alcohol Intake: current Alcohol Intake frequency: a few times a week Alcohol type: beer Drug use: Current Sobriety Substance use type: does not use Caregiver/Support person: No Household members: spouse Housing: house Communication Needs: None Do you need help understanding health information?: Rarely Pets and animals: Yes Pets and animals: dog(s) Sexually active: Yes Do you think of yourself as: straight/heterosexual Current gender identity: female What is your relationship status?: How often do you talk on the phone with friends or family?: three or more times per week How often do you get together with friends or relatives?: once per week How often do you attend yarsanism or baptist services?: 1-3 times per year Do you belong to any clubs or organized social groups?: no Panel score (0-1 are the most socially isolated patients): 2 What type of physical activity do you participate in: walking and weight lifting Duration: 30-45 minutes/day Frequency: 3-4 times per week Pepper/Anabaptism: No preference Special pepper needs: No Seatbelt use: always Helmet use: Yes Helmet use: always Drive intox or ride w/intox vending route driver: No Do you feel safe at home: Yes Do you feel safe in your relationship?: Yes History History 0 Para Hx # Term Pregnancies Multiple births Hx # Pregnancies Ectopic pregnancies AB induced Hx Number of Living Children AB spontaneous Exam Narrative Exam Narrative: 1.Const: Well-nourished, Well-developed, appearing stated age 2.Eyes: PERRL, no conjunctival injection, and symmetrical lids. 3.ENT: Atraumatic external nose and ears. Moist MM. Neck: Symmetric, trachea midline, No thyromegaly. 4.CVS: +S1/S2, No murmurs or gallops. Peripheral pulses 2+ and equal in all extremities. Brisk capillary refill in all extremities. 5.RESP: Unlabored respiratory effort. Clear to auscultation bilaterally. No wheezes rales or rhonchi 6.GI: Soft, Nontender/Nondistended, No hepatosplenomegaly. No guarding or rebound. 7.MSK: Normocephalic/Atraumatic, Extremities w/o deformity or ttp No cyanosis or clubbing, Normal movement of all extremities 8.Skin: Warm, Dry. No rashes or lesions. 9.Neuro: cruise consultant II-XII grossly intact. Sensation grossly intact, no focal neurologic deficits. No midline tenderness of the spine. Normal ROM in flexion, extension, side bend, and rotation. Patient has +5 out of 5 strength in the lower extremities in dorsiflexion and plantarflexion, knee flexion and extension, hip flexion and extension. Normal strength for dorsiflexion and plantar flexion of the great toe bilaterally. There is +2 over 2 dorsalis pedis pulses bilaterally. Intact sensation to the skin with light touch at the foot, knee, and hip. Patient admits to a slight subjective decrease in sensation for the left lower extremity but also makes it very clear that this is chronic and there is no acute change. Normal saddle sensation. Good sensation over the deep sural nerve area bilaterally. Rectal exam demonstrates good rectal tone and good perirectal sensation. Reflexes of the lower extremity normal bilaterally. Subjective burning achiness is present around the L1-L2 dermatome on the left anterior lateral aspect. No saddle anesthesia though, no medial thigh anesthesia or pain or burning. No reproducible abdominal tenderness. 10.Psych: (AAO) x3. Appropriate mood and affect Course Vital Signs Vital signs: Vital Signs Temperature 36.4 C L 10/27/21 04:52 Pulse 80 10/27/21 04:52 Respiratory Rate 18 10/27/21 04:52 Blood Pressure 152/80 H 10/27/21 04:52 Pulse Oximetry 96 10/27/21 04:52 Temperature 36.4 C L 10/27/21 04:52 Temperature Source Temporal Artery Scan 10/27/21 04:52 Pulse 80 10/27/21 04:52 Respiratory Rate 18 10/27/21 04:52 Respiratory Effort 10/27/21 04:54 Blood Pressure 152/80 H 10/27/21 04:52 Pulse Oximetry 96 10/27/21 04:52 Oxygen Delivery Method Room Air 10/27/21 04:52 Oxygen Flow Rate 0 10/27/21 04:52 Pain Level 8 10/27/21 04:52
[2021-10-27] MEDS: MORPHine 4 MG/ML SYR IM (05:16)
--- NOTE | 2021-10-27 06:05 | NUR.NOTE ---
Referral to Care Management for referral to [facility] in a week or two for Degenerative Disc Disease-Lumbar.Nursing Note:
--- NOTE | 2021-10-28 09:35 | PDOC.ERCMACT ---
- If Service Date Differs Date of service: 10/28/21 Time of Service: 09:35 Care Management Activity Note Fely is seen in the ED for back pain. At the request of ED provider, CM coordinates a referral to [facility] to assist Fely in obtaining an appointment.
== END 2021-10-27 06:05 | disposition home or self-care (01) ==
PROVIDERS: Emergency Provider Student in an Organized Health Care Education/Training Program; PCP Nurse Practitioner Family
DX: M47.817 Spondylosis without myelopathy or radiculopathy, lumbosacral region (principal); M47.816 Spondylosis without myelopathy or radiculopathy, lumbar region; M48.061 Spinal stenosis, lumbar region without neurogenic claudication
CPT/HCPCS: 96372; 99284; 99283; J2270

== ENCOUNTER 2022-01-24 02:04 | Outpatient (CLI) | payer OTHER, SELFPAY ==
[2022-01-24 13:13] LABS: Calculated LDL 122 mg/dL (<100); Cholesterol 233 mg/dL (<200); HDL Cholesterol 100 mg/dL (40-60); Triglyceride 58 mg/dL (<150)
== END 2022-01-24 02:05 | disposition home or self-care (01) ==
LOC: LOS 02:04
PROVIDERS: PCP Nurse Practitioner Family; Visit Provider Nurse Practitioner Family
DX: E78.5 Hyperlipidemia, unspecified (principal)
CPT/HCPCS: 36415; 80061

== ENCOUNTER 2022-07-25 10:44 | Outpatient (CLI) | payer OTHER, SELFPAY ==
[2022-07-25 09:25] LABS: Abs Immature Grans 0.02 10^3/uL (0.0-0.06); Absolute Basophil Count 0.07 10^3/uL (0.0-0.2); Absolute Eosinophil Count 0.09 10^3/uL (0.0-0.7); Absolute Lymphocyte Count 1.43 10^3/uL (1.2-3.4); Absolute Monocyte Count 0.56 10^3/uL (0.1-0.8); Absolute Neutrophil Count 6.01 10^3/uL (1.2-6.7); Basophils % 0.9; Eosinophils % 1.1; HCT 41.9 % (36.0-46.0); HGB 13.7 g/dL (11.2-15.7); Immature Grans % 0.2; Lymphocytes % 17.5; MCH 29.5 pg (27.0-33.0); MCHC 32.7 % (32.0-36.0); MCV 90 fL (80-95); MPV 8.8 fL (8.0-11.0); Monocytes % 6.8; Neutrophils % 73.5; Platelet Count 247 10^3/uL (130-400); RBC 4.65 10^6/uL (3.93-5.22); RDW 12.7 % (11.7-14.6); RDW-SD 41.3 fL; WBC 8.18 10^3/uL (4.4-10.8)
[2022-07-25 10:02] LABS: ALT 33 U/L (14-59); AST 25 U/L (15-37); Albumin 3.5 g/dL (3.4-5.0); Alkaline Phosphatase 141 U/L (46-116); Anion Gap 8.3 mmol/L (3-11); BUN 12 mg/dL (7-18); Bilirubin, Total 0.4 mg/dL (0.2-1.0); CO2 26.7 mmol/L (21.0-32.0); Calcium 9.2 mg/dL (8.5-10.1); Chloride 103 mmol/L (98-107); Glucose 121 mg/dL (74-106); Potassium 4.2 mmol/L (3.5-5.1); Sodium 138 mmol/L (136-145); Total Protein 7.6 g/dL (6.4-8.2)
--- OUTSIDE RECORDS SUMMARY | 2022-07-25 10:49 | XMS_ITS | Encounter Summary ---
:1960 Author Organization [facility] [place] [address] Care Team Providers Name Role Phone Savannah Brown APRN Primary Care Provider Reason for Referral Diagnostic Test (Routine) - Closed Specialty Diagnoses / Procedures Referred By Contact Refer red To Contact Neurology Diagnoses Acute left-sided low back pain with left-sided sciatica Degenerative disc disease, lumbar Eileen Gordillo APRN [facility] [address] [place] [id number] [place] [address] Fax: Referral ID Status Reason Start Date Expiration Date Visits V isits Requested Authorized [id number] Closed Test Only 11/06/2021 11/06/2022 1 1 Reason for Visit Consultation (Routine) - Closed Specialty Diagnoses / Procedures Referred By Contact Refer red To Contact Neurosurgery Diagnoses Other intervertebral disc degeneration, lumbar region Maksim Romo DO [facility] [address] [place] [address] [phone] Referral ID Status Reason Start Date Expiration Date Visits Requ ested Visits Authorized [id number] Closed 10/29/2021 10/29/2022 1 1 Encounter Details Date Type Department Care Team Description 11/05/2021 Office Visit Neurosurgery at [facility] Eileen Gordillo Acute left-sided low back pa in with left-sided sciatica; [facility] Degenerative disc disease, [place] [address] [phone] [place], [place] [address] Social History Tobacco Use Types Packs/Day Years Used Date Former Smoker Cigarettes Quit: 08/12/20 09 Smokeless Tobacco: Never Used Alcohol Use Standard Drinks/Week Comments Yes 0 (1 standard drink = 0.6 oz pure alcoho l) Occasional Alcohol Habits Answer Date Recorded How often do you have a drink containing alcohol? Not asked How many drinks containing alcohol do you have on a typical Not asked day when you are drinking? How often do you have six or more drinks on one occasion? No t asked Comment: Occasional 08/26/2016 Sex Assigned at Date Recorded Not on file documented as of this encounter Last Filed Vital Signs Vital Sign Reading Time Taken Comments Blood Pressure 131/57 11/05/2021 10:05 AM EST Pulse 95 11/05/2021 10:05 AM EST Temperature 36.8 ??C (98.3 ??F) 11/05/2021 10:05 AM EST Respiratory Rate 18 11/05/2021 10:05 AM EST Oxygen Saturation - - Inhaled Oxygen Concentration - - Weight 76.4 kg (168 lb 6.4 oz) 11/05/2021 10:05 AM EST Height 172.7 cm (5' 7.99) 11/05/2021 10:05 AM EST Body Mass Index 25.61 11/05/2021 10:05 AM EST documented in this encounter Progress Notes Eileen Gordillo APRN - 11/05/2021 10:00 AM EST Images from the original note were not included. Section of Neurosurgery Initial Consultation Note 11/05/2021 Maksim Romo, DO [address] [place] [address] RE: Fely Shaw : [address] Romo: I had the pleasure of meeting with Fely Shaw, a 61 year old female today with history of diverticulitis, osteopenia, s/p previous C7-T1 ACDF with Dr. Delvalle (2016), lumbar disc disease with previouslumbar discectomy with Dr. Cheung in 2013 in consideration of acute lumbar radiculopathy. Two weeks ago she had developed severe pain in low back with radiation to left buttock and hip and numbness in left buttock and presented to the ED at [facility]. She was given a burst prednisone and small quantity of narcotics and had an updated Lumbar MRI. She denies any notable injury or trauma preceding the flair up but recalls she had worked an extra day that week. At time of flair up she recalls being immobilized by pain initially, having difficulty emptying bladder and moving bowels for first few days but since taking prednisone and getting rest pain has improved - although she still has some numbness in leftbuttock and burning ache in left buttock hip without radiating into the leg, however with intermittent pins and needles in proximal aspect of left anterior thigh and it remains uncomfortable bearing full weight on left leg. She initially had some weakness with hip flexion which has improved. Since previous discectomy in 2013 she has chronic numbness that wraps around the left thigh and intothe medial aspect of left wheat. She also chronic numbness on lateral aspect of left foot and the 4/5toes. Has been on gabapentin 600 mg TID for chronic radicular symptoms in left leg. If she cuts backon gabapentin leg pain returns. Has previously tried lumbar SUE with mixed results; the first one worked well and second helped verylittle. Has not had lower extremity EMG since 2013. She has a referral for PT but has not started yet. Denies fever, chills, bowel bladder incontinence, weakness. Past Medical History: Diagnosis Date ??? Atypical nevi 10/08/2017 L gluteal fold, noticed at this years annual-she does not recall seeing in the past there, nor doesher spouse according to her-referred to derm It is 1.5 cm high and 2 cm wide, flat, symmetrical, sanchez/brown ??? Chronic pain 2012 LEFT SIDE PAIN FROM PREVIOUSE BACK SURGERY ??? Lumbosacral spondylosis without myelopathy 06/23/2014 Patient Active Problem List Diagnosis Code ??? Lower back pain M54.50 ??? Lumbosacral spondylosis without myelopathy M47.817 ??? Neck pain M54.2 ??? Cervical disc disorder with radiculopathy of mid-cervical region M50.120 ??? Milium L72.0 ??? Cervical radiculopathy M54.12 ??? Atypical nevi D22.9 ??? Perimenopause N95.1 ??? Scoliosis (and kyphoscoliosis), idiopathic M41.20 ??? Osteoarthrosis M19.90 ??? Leg pain M79.606 ??? Left hip pain M25.552 ??? Pain in joint, pelvic region and thigh M25.559 ??? s/p Left shoulder arthroscopic RTC repair, SLAP type II repair, and SAD: 09/24/2018; Dr. Bauer Z47.89 ??? Bimalleolar fracture of right ankle s/p ORIF 06/27/19 S82.841A PAST SURGICAL HISTORY Past Surgical History: Procedure Laterality Date ??? BACK SURGERY 2014 see neuro notes ??? CERVICAL SPINE SURGERY 2017 ??? LAMINOTOMY Left 2013 APD ??? PRO ANTERIOR INSTRUMENTATION 2-3 VERTEBRAL SEGMENTS Bilateral 03/23/2017 ANT. SPINAL INSTRUMENTATION, 2-3 VERTEBRA, SEGMENTED (WRVU 11.94) performed by [facility] ??? PRO ARTHRODESIS, ANT INTERBODY,DECOMPRESSION; CERVICAL BELOW C2 Bilateral 03/23/2017 ARTHRODESIS, ANT INTERBODY,DECOMPRESSION; CERVICAL BELOW C2 (WRVU 25) performed by Abel Delvalle MD at [facility] MA[facility] OR ??? PRO AUTOGRAFT SPINE SURGERY MORSELIZED SEP INCISION Bilateral 03/23/2017 AUTOGRAFT FOR SPINE SURGERY ONLY; MORSELIZED (THROUGH SEPARATE SKIN OR FASCIAL INCISION) (WRVU 2.79) performed by Abel Delvalle MD at [facility] MA[facility] OR ??? PRO INSERT BIOMCHN DEV INTERVERTEBRAL DSC SPC W/ARTHRD Bilateral 03/23/2017 INSERTION INTERBODY BIOMECH DEV TO INTERVEBRAL DISC SPACE, EA INTERSPACE (WRVU 4.25) performed by Abel Delvalle MD at [facility] MA[facility] OR ??? PRO OPEN TREATMENT BIMALLEOLAR ANKLE FRACTURE Right 06/27/2019 ORIF BIMALLEOLAR ANKLE FX. (WRVU 10.62) performed by Philippe Martinez MD at [facility] MA[facility] OR ??? SHOULDER ARTHROSCOPY Left 08/2018 SOCIAL HISTORY: Social History Tobacco Use ??? Smoking status: Former Smoker Types: Cigarettes Quit date: 08/12/2009 Years since quittin.2 ??? Smokeless tobacco: Never Used Vaping Use ??? Vaping Use: Never used Substance Use Topics ??? Alcohol use: Yes Comment: Occasional ??? Drug use: No CURRENT MEDICATIONS: ??? rosuvastatin (Crestor) 5 mg Tablet ??? ibuprofen (ADVIL;MOTRIN) 400 mg Tablet ??? gabapentin (NEURONTIN) 300 mg Capsule ??? EPINEPHrine (EPIPEN) 0.3 mg/0.3 mL Auto-Injector ??? cetirizine (ZYRTEC) 10 mg Tablet ??? Calcium 500 mg Tablet ALLERGIES: Allergies Allergen Reactions ??? Allergen Lvk-Tpngg-Ddozz Bee Anaphylaxis Allergic to BEES ??? Cis Free Text Allergy food dyes - Hives( gel type medication- bright red and yellow) ??? Cyclobenzaprine Other (See Comments) hallucinations ??? Nexium [Esomeprazole Magnesium] Other (See Comments) Light headed ??? Norflex [Orphenadrine Citrate] Nausea Only Dizziness ROS: General: Denies recent fever, chills, or weight changes. + for activity change Eyes: Denies recent changes in vision. ENT: Denies recent changes in hearing or dysphagia. Cardiovascular: Denies CP, palpitations, or irregular heart beat. Respiratory: Denies SOB, cough, or recent respiratory infections. GI: Denies N/V/D/C or change in appetite. : Denies changes in urination; frequency, urgency or burning. Musculoskeletal: Denies weakness, numbness, or tingling in extremities. + for numbness Heme: Denies recent or history of bleeding or clotting disorder. Neuro: Denies recent changes in mentation, memory, or behavior. Pysch: + for sleep disruption PHYSICAL EXAMINATION: Blood pressure 131/57, pulse 95, temperature 36.8 ??C (98.3 ??F), temperature source Temporal, resp.rate 18, height 172.7 cm (5' 7.99), weight 76.4 kg (168 lb 6.4 oz). Awake, alert, and in no acute distress Speech: Appropriate and fluent; answers questions appropriately. Cranial Nerves: II-XII grossly intact. Motor: Normal muscle bulk and tone. No pronator drift. STRENGTH R L REFLEXES R L Shoulder Abduction 5 5 Biceps 2 2 Elbow Flexion 5 5 Brachiorad. 2 2 Elbow Extension 5 5 Triceps 2 2 Wrist Dorsiflexion 5 5 Finger Abduction 5 5 Patella 2 2 Tool Procurement Coordinator 5 5 Ankle 1 tr Hip Flexion 5 4+ Knee Flexion 5 4 PATHOLOGIC Knee Extension 5 4 REFLEXES R L Ankle dorsiflexion 5 5 Chandler's Absent Absent Ankle plantarflexion 5 5 Babinski Absent Absent Extensor hallucis 5 5 Clonus None None Sensation: Grossly intact to light touch; decreased in lateral aspect left thigh, calf Able to toe walk; difficulty heel walking Gait: Guarded but steady Lumbar MRI Left convex scoliosis Conus ends at L1 Small extra foraminal disc extrusion on left at L12 (See below) which appears to contact the exitingL1 nerve root. L45 - moderate central canal narrowing secondary to broad disc bulge and facet, ligamentous hypertrophy. There is moderate foraminal stenosis R and mod to severe FS on left L5-S1 - disc osteophyte complex eccentric to left - at least moderate foraminal stenosis on left. IMPRESSION AND PLAN: Ms. Shaw is a 61 y.o. female with history of previous left lumbar diskectomy (L45, L5-S1) presents with acute left L1 radicular symptoms starting about 2 weeks ago. Initially went to ED at [facility] and was given prednisone burst, pain medications with positive effect. She continues to experience pain andnumbness in the left buttock, hip and has difficulty with sustained activity but about 50% better. She takes gabapentin since for chronic left radicular symptoms which she has had since previous surgery in 2014. The recent MRI shows levoscoliosis with apex at L2-3. On sagittal view there is]anterolisthesis of L4 on L5 and L5 on S1 and retrolisthesis of L2 on L3. I reviewed the MRI in detail with Ms. Tatyana collier. On exam she has tenderness and decreased sensation in L1 distribution and decreased sensation in left lateral thigh, calf and the lateral aspect of left foot which is long standing. I detect no weakness on exam today. For the first several days had some difficulty with bladder emptying and having BM but those symptoms resolved. She manages chronic back and left leg pain with gabapentin. Has tried SUE previously with mixed results and would like to proceed with just PT for now. I recommend getting lumbar flex/ex today to evaluate dynamic alignment and get updated LE EMGs. We can reevaluate progress 4-6 weeks. [facility] message in meantime if symptoms persist or worsen. Based on my findings I suggest the following course of action: 1. Pt already had PT referral 2. Lumbar flex/extension XR today 3. Lower extremity EMG 4. Follow up in 4-6 weeks TOV or in person visit It was my pleasure to have seen and examined Ms. Shaw. In our visit today, we discussed the patient's current condition, the natural course history without treatment and various interventional options. I have seen and examined the patient for 40 minutes. We spent more than 50% of the time in counseling about the patient's condition and addressing questions regarding natural course history and treatment options. I will be sure to keep you updated after Ms. Shaw returns here for further follow-up. Thank you again for your referral. Please don't hesitate to contact me if you have any further questions. Sincerely, Eileen Gordillo,MAHOGANY-C Section of Neurosurgery [address] [address] CC: Savannah Brown APRN CC: Maksim Romo, [address] [place] [address] This message is confidential, intended only for the named recipient(s) and may contain information that is privileged or exempt from disclosure under applicable law. If you are not the intended recipient(s), you are notified that the dissemination, distribution or copying of this information is strictly prohibited. If you received this message in error, please notify the sender then delete this message. documented in this encounter Plan of Treatment Upcoming Encounters Date Type Specialty Care Team Description 08/07/2022 [facility] [place] [id number] (Wo rk) Scheduled Referrals Name Type Priority Associated Diagnoses Order S chedule Referral to Outpatient Referral Routine Acute left-sided low Ordered: Neurology back pain with 11/06/2021 left-sided sciat ica Degenerative disc disease, lumbar documented as of this encounter Results XR Lumbar Spine Min 4 view (11/05/2021 11:41 AM EST) Anatomical Region Laterality Modality L-spine N/A Digital Radiography Specimen (Source) Anatomical Location Collection Method / Collectio n Time Received Time / Laterality Volume Impressions 11/05/2021 3:13 PM EST Grade 1 anterolisthesis of L4 on L5 and L5 on S1 on a background of spondylosis and facet osteoarthropathy. No dynamic i nstability. Transitional anatomy with lumbarization of the S1 vertebral body. I have personally reviewed the image(s) and the resident's interpretation and agree with the findings, Melissa White MD at 11/05/2021 3:13 PM Thank you for letting us participate in the care of this patient. ??If you are a health care provider and have any questi ons regarding this report, please contact the number below. ??For patients who have questions please contact the health customer care assistant that requested your imaging first. ? Electronically signed by: Melissa hardy MD, [facility] ([phone]), at 11/05/2021 3:13 PM Narrative 11/05/2021 3:13 PM EST EXAMINATION: XR LUMBAR SPINE MIN 4 VIEW CLINICAL HISTORY: Please obtain lateral extension, neutral, and flexion views. Please obtain neutral AP view. Please in clude from T12 to femoral heads TECHNIQUE: 4 views of the lumbar spine COMPARISON: MRI lumbar spine 09/16/2017 FINDINGS: Transitional anatomy with lumbarization of the S1 vertebral body. For the purposes of this dictation and the conve ntion of prior imaging the first nonrib-bearing vertebral body will be de signated as L1. The last complete intervertebral disc space is S1-S2. Roto-levoconvex curvature of the lumbar spine. Grade 1 anterolisthesis of L4 on L5 and L5 on S1, unchanged on flexion an d extension views. No dynamic instability. Vertebral body heights are preserved. Degenerative changes of the lumbar spine characterized by disc space narrowing, endplate proliferative perforation, and facet arthropathy. Procedure Note Melissa White MD - 11/05/2021Forma tting of this note might be different from the original. EXAMINATION: XR LUMBAR SPINE MIN 4 VIEW CLINICAL HISTORY: Please obtain lateral extension, neutral, and flexion views. Please obtain neutral AP view. Please in clude from T12 to femoral heads TECHNIQUE: 4 views of the lumbar spine COMPARISON: MRI lumbar spine 09/16/2017 FINDINGS: Transitional anatomy with lumbarization of the S1 vertebral body. For the purposes of this dictation and the conve ntion of prior imaging the first nonrib-bearing vertebral body will be de signated as L1. The last complete intervertebral disc space is S1-S2. Roto-levoconvex curvature of the lumbar spine. Grade 1 anterolisthesis of L4 on L5 and L5 on S1, unchanged on flexion an d extension views. No dynamic instability. Vertebral body heights are preserved. Degenerative changes of the lumbar spine characterized by disc space narrowing, endplate proliferative perforation, and facet arthropathy. IMPRESSION Grade 1 anterolisthesis of L4 on L5 and L5 on S1 on a background of spondylosis and facet osteoarthropathy. No dynamic i nstability. Transitional anatomy with lumbarization of the S1 vertebral body. I have personally reviewed the image(s) and the resident's interpretation and agree with the findings, Melissa White MD at 11/05/2021 3:13 PM Thank you for letting us participate in the care of this patient. If you are a health care provider and have any questi ons regarding this report, please contact the number below. For patients w ho have questions please contact the health customer care assistant that requested your imaging first. Electronically signed by: Melissa hardy MD, [facility] ([phone]), at 11/05/2021 3:13 PM Eileen Gordillo APRN IMG DX ORDERABLES documented in this encounter Visit Diagnoses Diagnosis Acute left-sided low back pain with left -sided sciatica Degenerative disc disease, lumbar Degeneration of lumbar or lumbosacral in tervertebral disc Acute left-sided low back pain with left -sided sciatica documented in this encounter Care Teams Research Advisor Relationship Specialty Start Date End Date Savannah Brown APRN PCP - General Family Medicine 08/28/20 [id number] [place] [address] documented as of this encounter
--- OUTSIDE RECORDS SUMMARY | 2022-07-25 10:49 | XMS_ITS | Encounter Summary ---
:1960 Author Organization [facility] Address [facility] [place] [address] Care Team Providers Name Role Phone Savannah Brown APRN Primary Care Provider Reason for Visit Reason Comments Back Pain Left lower back/buttock Consultation (Routine) - Closed Specialty Diagnoses / Procedures Referred By Contact Refer red To Contact Pain and Spine Center Diagnoses Acute left-sided low back pain with left-sided sciatica Crissy Aguirre MD [place], Kimberly [facility] MD ELLIS Galindo [facility] [address], [place] [address] Fax: Referral ID Status Reason Start Date Expiration Date Visits V isits Requested Authorized [id number] Closed Consult, 02/14/2022 02/14/2023 1 1 Test & Treat Encounter Details Date Type Department Care Team Description 04/04/2022 Office Visit [facility] Krissy Nation Lateral femoral at [facility] MD Mateo cutaneous neuropathy, [facility] [address], [place], [place] [id number] [phone] Social History Tobacco Use Types Packs/Day Years [...] Sign Reading Time Taken Comments Blood Pressure 138/67 04/04/2022 8:19 AM EDT Pulse 77 04/04/2022 8:19 AM EDT Temperature - - Respiratory Rate - - Oxygen Saturation 97% 04/04/2022 8:19 AM EDT Inhaled Oxygen Concentration - - Weight 77.1 kg (170 lb) 04/04/2022 8:19 AM EDT Height 172.7 cm (5' 8) 04/04/2022 8:19 AM EDT Body Mass Index 25.85 04/04/2022 8:19 AM EDT documented in this encounter Progress Notes Krissy Nation MD - 04/04/2022 8:30 AM EDT I have seen and examined the patient and reviewed the fellow's above history and agree with the details as written. The assessment and plan were formulated in discussion with me, and I agree with them as documented. Fely was seen by Dr Aguirre in neurosurgery 6 weeks at which time was having a couple distinct pain issues one being back and left leg pain consistent with L5 radiculopathy which was improving as well as a newer groin pain and numbness. There was also noted to be some diffuse LLE weakness that was of unclear etiology based on MRI and EMG/NCS. She was referred today for consideration of LFCN block or illioinguinal nerve block. Left leg pain/numbness started approximately 10 years ago, she underwent back surgery with Dr. Cheung,after surgery with left leg numbness which was new. She has been managing well with gabapentin until September of this year, when she suddenly developed severe left buttock pain.MRI of the lumbar spine, showed moderate left foraminal stenosis. She has since undergone PT, started steroids and meloxicam, and her symptoms improved over time. Then starting in December or january began having there is more leg pain and numbness in the groin . Reports that her left leg feels heavy, without clearly defined involved muscle groups. No new bowel or bladder symptoms. On exam/history her left groin numbness does seem to be within the ilioinguinal nerve distribution but this area is not painful. We discussed due to the lack of pain and presence of numbness I am not sure what diagnostic/ therapeutic value a ilioinguinal nerve block would have as this does not reliably decrease numbness in this distribution even when it decreases pain. We agreed that it does not makes sense to proceed with ilioinguinal nerve block at this time. Based on her exam it is possible that she has meralgia paresthetica, although this is not clear cut. Agreed that a LFCN block would be diagnostic and potentially therapeutic. After discussion of the risks and benefits she would like to proce ed. Procedures: LEFT US guided Lateral Femoral Cutaneous Nerve Block for diagnostic and therapeutic value. She will keep a post procedure pain log to take to her next visit with Dr Aguirre. Medications: No changes Imaging: None Referrals: None Follow up PRN Krissy Nation MD [facility] Assisant Professor of Anesthesiology [employer] [facility] [employer] [address] [address] / [facility] Sanju Hernandez MD - 04/04/2022 8:30 AM EDT [facility] Initial Consultation Note Date of visit: 04/04/22 : 1960 Consulting Physician: Seeing at the request of Crissy Aguirre MD [facility] [place] [address]. Chief Complaint: Groin numbness, leg pain History of Present Illness: Fely Shaw is a 61 y.o. female who was last seen in the Pain Clinic in 2013 for lumbar radiculopathy s/p LESI with a history of lumbar/cervical radiculopathy, DDD, pelvic/thigh pain who presents with groin numbness and leg pain. Fely was seen by Dr Aguirre in neurosurgery 6 weeks at which time was having a couple distinct pain issues one being back and left leg pain consistent with L5 radiculopathy which was improving as well asa newer groin pain and numbness. There was also noted to be some diffuse LLE weakness that was of unclear etiology based on MRI and EMG/NCS. She was referred today for consideration of LFCN block or illioinguinal nerve block. Left leg pain/numbness started approximately 10 years ago, she underwent back surgery with Dr. Cheung,after surgery with left leg numbness which was new. ??She has been managing well with gabapentin until September of this year, when she suddenly developed severe left buttock pain. MRI of the lumbar spine, showed moderate left foraminal stenosis. She has since undergone PT, started steroids and meloxicam, and her symptoms improved over time. Then starting in December or January began having more leg pain and numbness in the groin. Reports that her left leg feels heavy, without clearly defined involved musclegroups. No new??bowel or bladder symptoms. ?? At today's visit she localizes pain to the low back, left buttock and left anterior thigh. These arechronic pain complaints. She also complains of new numbness in the left groin since September. She noticed the numbness after using a treadmill. Onset/Context of pain: Pain location: as above Onset: as above Quality and timing of pain: numbness Radiation: as above Pain ratin/10 in buttock Aggravating factors include: sitting, hiking, stairs Relieving factors include: walking, exercise Numbness/Tingling: as above Sleep: depends on the night, disturbed due to back pain Mood: Stable Red flag symptoms: Bowel and bladder: No loss of control Saddle anesthesia: denies Weakness: denies Current pain treatments include: Mobic Tylenol PRN Ibuprofen PRN Gabapentin 600mg TID Previous pain treatments included: Medications: Topicals - denies NSAIDs - as above Acetaminophen - as above Antidepressants - denies Antiepileptics - as above Muscle Relaxants - allergic to multiple Opioids - denies Steroids - September PT: Last PT was on November 2021. she attended for 8 weeks. Injections: Patient has had prior denies Surgery: Patient is s/p lumbar surgery Other: Denies Chart review: Today I have reviewed available medical information in the patient's medical record at [facility] including relevant provider notes, laboratory work, and imaging. Past Medical History: Patient Active Problem List Diagnosis Code ??? [...] of right ankle s/p ORIF 06/27/19 S82.841A ??? Hyperlipidemia E78.5 ??? Degenerative disc disease, lumbar M51.36 ??? Sigmoid diverticulosis K57.30 ??? Osteopenia M85.80 ??? Radiculopathy of lumbar region M54.16 Past Medical History: Diagnosis Date ??? Atypical nevi 10/08/2017 L gluteal fold, noticed at this years annual-she does not recall seeing in the past there, nor doesher spouse according to her-referred to derm It is 1.5 cm high and 2 cm wide, flat, symmetrical, sanchez/brown ??? Chronic pain 2013 LEFT SIDE PAIN FROM PREVIOUSE BACK SURGERY ??? Lumbosacral spondylosis without myelopathy 06/23/2014 Past Surgical History: Past Surgical History: Procedure Laterality Date ??? BACK SURGERY 2013 see neuro notes ??? CERVICAL SPINE SURGERY 2016 ??? LAMINOTOMY Left 2013 APD ??? PRO ANTERIOR INSTRUMENTATION 2-3 VERTEBRAL SEGMENTS Bilateral 03/23/2017 ANT. SPINAL INSTRUMENTATION, 2-3 VERTEBRA, SEGMENTED (WRVU 11.94) performed by [facility] ??? PRO ARTHRODESIS, ANT INTERBODY,DECOMPRESSION; CERVICAL BELOW C2 Bilateral 03/23/2017 ARTHRODESIS, ANT INTERBODY,DECOMPRESSION; CERVICAL BELOW C2 (WRVU 25) performed by Abel Delvalle MD at [facility] MAIN OR ??? PRO AUTOGRAFT SPINE SURGERY MORSELIZED SEP INCISION Bilateral 03/23/2017 AUTOGRAFT FOR SPINE SURGERY ONLY; MORSELIZED (THROUGH SEPARATE SKIN OR FASCIAL INCISION) (WRVU 2.79) performed by Abel Delvalle MD at [facility] MAIN OR ??? PRO INSERT BIOMCHN DEV INTERVERTEBRAL DSC SPC W/ARTHRD Bilateral 03/23/2017 INSERTION INTERBODY BIOMECH DEV TO INTERVEBRAL DISC SPACE, EA INTERSPACE (WRVU 4.25) performed by Abel Delvalle MD at [facility] MAIN OR ??? PRO OPEN TREATMENT BIMALLEOLAR ANKLE FRACTURE Right 06/27/2019 ORIF BIMALLEOLAR ANKLE FX. (WRVU 10.62) performed by Philippe Martinez MD at [facility] MAIN OR ??? SHOULDER ARTHROSCOPY Left 08/2018 Medications: Medications were reconciled and updated in the electronic medical record. Current Outpatient Medications: ??? meloxicam (MOBIC) 7.5 mg Tablet, , Disp: , Rfl: ??? acetaminophen (Tylenol) 500 mg Tablet, Take by mouth., Disp: , Rfl: ??? rosuvastatin (Crestor) 5 mg Tablet, , Disp: , Rfl: ??? ibuprofen (ADVIL;MOTRIN) 400 mg Tablet, Take 800 mg by mouth every 6 hours as needed for Pain., Disp: , Rfl: ??? gabapentin (NEURONTIN) 300 mg Capsule, Take 2 capsules by mouth 3 times daily., Disp: 540 capsule, Rfl: 3 ??? EPINEPHrine (EPIPEN) 0.3 mg/0.3 mL Auto-Injector, Inject 0.3 mLs into the muscle once as needed., Disp: 2 each, Rfl: 1 ??? cetirizine (ZYRTEC) 10 mg Tablet, Take 10 mg by mouth daily., Disp: , Rfl: ??? Calcium 500 mg Tablet, Take 1,000 mg by mouth daily., Disp: , Rfl: Allergies: Allergies Allergen Reactions ??? Allergen Mrg-Tyefp-Czbmd Bee Anaphylaxis Allergic to BEES ??? Cis Free Text Allergy food dyes - Hives( gel type medication- bright red and yellow) ??? Cyclobenzaprine Other (See Comments) hallucinations ??? Nexium [Esomeprazole Magnesium] Other (See Comments) Light headed ??? Norflex [Orphenadrine Citrate] Nausea Only Dizziness Social History: Social History Tobacco Use ??? Smoking status: Former Smoker Types: Cigarettes Quit date: 08/12/2009 Years since quittin.6 ??? Smokeless tobacco: Never Used Vaping Use ??? Vaping Use: Never used Substance Use Topics ??? Alcohol use: Yes Comment: Occasional ??? 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 Family history: Family History Problem Relation Age of Onset ??? Hypertension Mother stroke 06/17/17 ??? Hyperlipidemia Mother ??? Osteoporosis Mother ??? Lung Cancer Father 2011 ??? Lung Cancer Brother 65 ??? Breast Cancer Sister 36 ??? Type 2 Diabetes Neg Hx No pertinent h/o arthritis or pain history in the family. Physical Exam: There were no vitals taken for this visit. General: Well-nourished, well-developed, female in no acute distress Respiratory: Non-labored breathing pattern on RA. No respiratory distress Cardiovascular: No edema or cyanosis. 2+ peripheral pulses Abdominal: Soft, non-tender to palpation, non-distended Skin: No appreciable rashes or skin breakdown Psych: Appropriate affect, answers questions appropriately Musculoskeletal: Inspection - No gross appendicular or axial deformities Palpation - Tender to palpation of left PSIS ROM - Lumbar flexion/ extension/ lateral rotation is limited due to pain Special tests - SIJ provocation testing (+) for: Kristen's finger test, posterior thrust, Doyle's, Gaenslen's, Pelvic rocking on the L side - Facet loading (+) on the L side - FAIR (-) - Hip ROM is WNL bilaterally - Straight Leg Raise (+) on the L side Neurologic: Motor - Able to heel and tiptoe walk. Segment Action Right Left L2 Hip Flexion 5/5 5/5 L3 Knee Extension 5/5 5/5 L4 Ankle Dorsiflexion 5/5 5/5 L5 Long Toe Extension 5/5 5/5 S1 Ankle Plantarflexion 5/5 5/5 (segments are from the International Standards for Neurological Classification of Spinal Cord Injury) Reflexes: Segment Reflex Right Left L3-4 Patella 2+ 2+ S1-2 Achilles 2+ 2+ (0=absent, 1=slight response, 2=brisk/normal, 3=very brisk, 4=clonus) Upper Motor Neuron Signs: Reflex Right Left Babinski's Downgoing Downgoing Clonus None None Sensory - Intact to light touch and pinprick at bilateral upper and lower extremities. Allodynia (-), Hyperalgesia (-) Gait/Station - Normal gait. No loss of balance noted. Diagnostic Tests: Most recent L spine MRI was completed on 10/25/21 at outside facility. The impression is: moderate left foraminal stenosis, degenerative changes X-rays of the lumbar spine done on 11/05/21 were reviewed: EXAMINATION: XR LUMBAR SPINE MIN 4 VIEW ?? CLINICAL HISTORY: Please obtain lateral extension, neutral, and flexion views. Please obtain neutral AP view. Please include from T12 to femoral heads ?? TECHNIQUE: 4 views of the lumbar spine ?? COMPARISON: MRI lumbar spine 09/16/2017 ?? FINDINGS: Transitional anatomy with lumbarization of the S1 vertebral body. For the purposes of this dictation and the convention of prior imaging the first nonrib-bearing vertebral body will be designated as L1. The last complete intervertebral disc space is S1-S2. ?? Roto-levoconvex curvature of the lumbar spine. Grade 1 anterolisthesis of L4 on L5 and L5 on S1, unchanged on flexion and extension views. No dynamic instability. Vertebral body heights are preserved. Degenerative changes of the lumbar spine characterized by disc space narrowing, endplate proliferative perforation, and facet arthropathy. ?? IMPRESSION Grade 1 anterolisthesis of L4 on L5 and L5 on S1 on a background of spondylosis and facet osteoarthropathy. No dynamic instability. Transitional anatomy with lumbarization of the S1 vertebral body. Assessment: Fely Shaw is a 61 y.o. female with a past medical history of as above who presents with groin numbness and left anterior thigh pain. The groin numbness is in the distribution of the ilioinguinal and iliohypogastric nerves. Given that her complain is numbness rather than pain, it is unlikely that an injection would improve these symptoms. She also complains of anterior thigh pain which may be related to lateral femoral cutaneous nerve entrapment. We will plan for an injection of this nerve for diagnostic and potentially therapeutic benefit. Plan/Recommendations: We reviewed etiology, predisposing factor(s), natural course, imaging results as well as treatment options including medications, physical therapy/exercise, therapeutic injections, and surgery. The risks, consequences, alternatives, and benefits of various treatment options were discussed with the patient in great detail. - Medications: No new prescription at this time. Patient will continue current meds. - Imaging: No new imaging indicated at this time. - Physical therapy/modalities/DME: Continue home exercise program. - Interventional/Surgical procedures: Patient will return to clinic for left lateral femoral cutaneous nerve injection with ultrasound. Risks and benefits were discussed. Is patient taking an anticoagulant? No Is patient taking any NSAIDs/Nutritional Supplements? Yes, patient does not need to hold Is patient taking Aspirin? No Is patient taking Antibiotics? No Has patient been on greater than 40mg of steroid 14 days or longer or has patient had a steroid injection within the last two weeks? No Does patient have allergies to contrast/local anesthetic/steroid? No JUSTIFICATION OF MEDICAL NECESSITY Patient's pain has been present for >6 weeks and is an average of >6/10 on 0-10 scale and/or pain interferes with ADLs. Conservative management includes: - Medications: acetaminophen, NSAIDS, neuropathics, muscle relaxants - Physical Therapy: Completed 6 week course in the last 6 months OR Patient cannot tolerate physicaltherapy at the current time due to the intensity of the pain. - Continues clinician directed home exercise program including exercises learned in PT. - Referrals: None indicated at this time. - Activity: Continue activity as tolerated. - Education: Cauda equina and associated symptoms, including motor weakness, bowel/bladder dysfunction, and perineal numbness were discussed. The patient was instructed to report to the Emergency department, if these symptoms occur. - Follow-up: Dr. Aguirre or JANIE in Pain Clinic Thank you for allowing us the opportunity to participate in Fely Shaw's care. Sanju Hernandez MD Pain Medicine Fellow [address] [address] / [facility] Assessment and plan discussed with the attending physician Dr. Nation. CC: Crissy Aguirre MD [facility] [place] [address] documented in this encounter Plan of Treatment Upcoming Encounters Date Type Specialty Care Team Description 08/07/2022 TH Visit [facility] Sp[facility] Center Nahid Carl PsyD (TeleHealth) [facility] [place] [address] (Wo rk) documented as of this encounter Visit Diagnoses Diagnosis Lateral femoral cutaneous neuropathy, le ft documented in this encounter Care Teams Community Service Organization Director Relationship Specialty Start Date End Date Savannah Brown APRN PCP - General Family Medicine 08/28/20 [address] [place] [address] documented as of this encounter
--- OUTSIDE RECORDS SUMMARY | 2022-07-25 10:49 | XMS_ITS | Encounter Summary ---
:1960 Author Organization [facility] [address] Care Team Providers Name Role Phone Savannah Brown APRN Primary Care Provider Encounter Details Date Type Department Care Team Description 12/06/2021 External Results Neurology at [facility] Delta Woods MD [facility] [place] [address] [place] [address] NEUROLOGY DEPT. [phone] [place], [place] [address] (Wo rk) Social History Tobacco Use Types Packs/Day Years [...] on file documented as of this encounter Plan of Treatment Upcoming Encounters Date Type Specialty Care Team Description 08/07/2022 TH Visit [facility] Nahid Carl PsyD (TeleHealth) [facility] [place] [address] (Wo rk) documented as of this encounter Procedures Procedure Name Priority Date/Time Associated Diagnosis Comme nts EMG WITH F-WAVE Routine 11/21/2021 documented in this encounter Results EMG WITH F-WAVE (11/21/2021) Narrative This result has an attachment that is no t available. Delta Woods MD NEUROLOGY ORDERABLES documented in this encounter Visit Diagnoses Not on filedocumented in this encounter Care Teams Leaf Coverer Relationship Specialty Start Date End Date Savannah Brown APRN PCP - General Family Medicine 08/28/[address] [place] [address] documented as of this encounter
--- OUTSIDE RECORDS SUMMARY | 2022-07-25 10:49 | XMS_ITS | Encounter Summary ---
:1960 Author Organization [facility] [place] [address] Care Team Providers Name Role Phone None Primary Care Provider Unavailable Encounter Details Date Type Department Care Team Description 08/08/2019 Ancillary Procedure Radiology at [facility] Christ Bauer MD [address] [place] [address] [address] [phone] [place], [place] [address] Social History Tobacco Use Types Packs/Day Years [...] Center Nahid Carl PsyD (TeleHealth) [facility] [place] [address] (Wo rk) documented as of this encounter Procedures Procedure Name Priority Date/Time Associated Diagnosis Comme [facility] FILM LIBRARY Routine 08/08/2019 12:00 AM Results for this STORAGE ONLY DX EST procedure ar e in CHEST the results section. documented in this encounter Results Film Library- Storage Only DX Chest (08/08/2019 12:00 AM EST) Specimen (Source) Anatomical Location Collection Method / Collectio n Time Received Time / Laterality Volume Narrative RAD - 09/12/2019 2:07 PM EST This exam is auto-finalizing. It's purpo se is for storage only. Christ Bauer MD IMG FILM LIBRARY ORDERABLES Performing Organization Address City/State/ZIP Code Phon e Number [place], [place] documented in this encounter Visit Diagnoses Not on filedocumented in this encounter Care Teams Produce Department Manager Relationship Specialty Start Date End Date None PCP - General 07/11/19 09/14/19 None documented as of this encounter
--- OUTSIDE RECORDS SUMMARY | 2022-07-25 10:49 | XMS_ITS | Encounter Summary ---
:1960 Author Organization [place] [address] Care Team Providers Name Role Phone Savannah Brown APRN Primary Care Provider Encounter Details Date Type Department Care Team Description 11/05/2021 Travel Social History Tobacco Use Types Packs/Day Years [...] and Spine Center Nahid Carl PsyD (TeleHealth) [facility] [place] [address] (Wo rk) documented as of this encounter Visit Diagnoses Not on filedocumented in this encounter Care Teams Carry Out Clerk And Shelf Stocker Relationship Specialty Start Date End Date Savannah Brown APRN PCP - General Family Medicine 08/28/[address] [place], [place] [id number] documented as of this encounter
--- OUTSIDE RECORDS SUMMARY | 2022-07-25 10:49 | XMS_ITS | Encounter Summary ---
:1960 Author Organization [facility] [address] Care Team Providers Name Role Phone Savannah Brown APRN Primary Care Provider Encounter Details Date Type Department Care Team Description 11/21/2021 Travel Social History Tobacco Use Types Packs/Day [...] and Spine Center Nahid Carl PsyD (TeleHealth) [facility] [place] [address] (Wo rk) documented as of this encounter Visit Diagnoses Not on filedocumented in this encounter Care Teams Offset Lithographic Press Setter Relationship Specialty Start Date End Date Savannah Brown APRN PCP - General Family Medicine 08/28/[address] [place], [place] [address] documented as of this encounter
--- OUTSIDE RECORDS SUMMARY | 2022-07-25 10:49 | XMS_ITS | Encounter Summary ---
:1960 Author Organization [facility] Address [address] [place] [address] Care Team Providers Name Role Phone Vance Valiente APRN Primary Care Provider Reason for Visit Reason Comments Follow Up Surgery WC LT shoulder scope Encounter Details Date Type Department Care Team Description 12/01/2019 Office Visit Orthopaedics at [facility], s/p Left shoulder Mora Day arthroscopic RTC [address] Madelin Mora repair, [place] [address] repair, and SAD: [phone] [place], [place] 09/24/2018; Dr. Bauer [id number] Social History Tobacco Use Types Packs/Day Years [...] on file documented as of this encounter Progress Notes Christ Bauer MD - 12/01/2019 1:45 PM EST Chief Complaint Patient presents with ??? Follow Up Surgery WC LT shoulder scope DATE OF INJURY/ONSET: 08/26/16, Workers Compensation DATE OF SURGICAL PROCEDURE: 09/24/2018 SURGICAL PROCEDURE PERFORMED: Left Shoulder arthroscopic rotator cuff repair (supraspinatus), subacromial decompression, and SLAP Type II repair SURGEON: Christ Bauer MD HISTORY OF PRESENT ILLNESS Fely Shaw is a 59 y.o. female comes into clinic today for follow-up after undergoing an arthroscopic shoulder surgery. She suffered an ankle fracture that required an ORIF on 06/27/2019 and then had a wound infection that required I&D on 08/06/2019. Due to the injury and subsequent surgeries, she was on crutches for several months. She admits she has not been able to perform her shoulder exercises very well. She admits that crutch use irritated her shoulder a great deal. She primarily used a knee scooter which decreased the stress on her shoulder. She denies any difficulty with daily use of her shoulder with ADL's and activities around the home. Pain Medications: Ibuprofen 800 mg TID primarily for the ankle pain. She continues use of Dfdtwdhmme781 mg TID for chronic back pain. Physical Therapy: Micheal Kc, PT for an extended period of time post-op and continued guidance with her exercises. She has not been performing her exercises recently due to the ankle fracture. No x-rays were obtained during today's office visit. REVIEW OF SYMPTOMS: Constitutional: Denies fever, chills, fatigue Cardiovascular: Denies chest pain Respiratory: Denies shortness of breath Gastrointestinal: Denies nausea, vomiting, diarrhea, constipation or abdominal pain Neurovascular: Denies numbness or tingling Musculoskeletal: Admits some shoulder pain mainly while driving. Psychiatric: Mood and affect appropriate Radiating pain: none PHYSICAL EXAM: General: alert and oriented, no acute distress Cervical Spine: FROM without any pain or reproduction of pain, nontender over the midline. Shoulder Exam Inspection: surgical incisions well healed and benign in appearance, no ecchymosis, no erythema, no post-op swelling Palpation: greatly decreased tenderness to palpation anterior and anterior lateral acromion and within bicipital groove ROM: active forward flexion to 155 degrees, abduction to 135 degrees, external rotation to 80 degrees, internal rotation to T7 Strength: decreased scapular incorporation to active and resisted forward flexion and abduction, very good interval increase in strength to resisted infraspiantus and subscapularis Orthopedic special testing: Negative Sulcus Sign, mild discomfort to Empty Can without drop arm, decrease discomfort to Neer and Grove signs Neurovascular: Normal sensation to light touch along radial, median, ulnar, axillary, and lateral antebrachial cutaneous nerve distributions. Radial pulses are 2+ and equal bilaterally with good hand perfusion. ASSESSMENT/PLAN: Fely Shaw is a 59 y.o. female presents to the clinic in follow-up s/p Left Shoulder arthroscopicrotator cuff repair (supraspinatus), subacromial decompression, and SLAP Type II repair performed on09/24/[address] Bauer. The patient had been doing well with her post-op recovery but continuation of her exercises has been delayed due to an ankle fracture that required an ORIF and then an I&D for a SSI. On examination, her pain has decreased dramatically since the previous office visit and she has maintained good Motion and her strength has increased. She is relieved with the results of today's physical exam. She will continue to perform home RTC and serratus anterior strengthening and ROM e xercises. 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 She may lift up to 50 lbs with both hands below waist and up to 15 lbs more frequently. No climbing ladders. Workers comp paperwork completed in clinic. The patient was provided with a copy of the report. I Lidia Ivy am acting as scribe for Christ Bauer MD. All work documented was performed by Christ Bauer MD. I, Christ Bauer MD personally performed the services described in this documentation, as scribed by Lidia Ivy is both accurate and complete. documented in this encounter Plan of Treatment Upcoming Encounters Date Type Specialty Care Team Description 08/07/2022 TH Visit [facility] Nahid Carl PsyD (TeleHealth) [facility] [place] [address] (Wo rk) documented as of this encounter Visit Diagnoses Diagnosis s/p Left shoulder arthroscopic RTC repai r, SLAP type II repair, and SAD: 09/24/2018; Dr. Bauer Aftercare following surgery of [facility], N[facility] documented in this encounter Care Teams Driver Material Handler Relationship Specialty Start Date End Date Vance Valiente, MANIFEST CLERK PCP - General Family Medicine 09/15/19 08/27/[address] [facility] [address] [place] [address] documented as of this encounter
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
--- OUTSIDE RECORDS SUMMARY | 2022-07-25 10:49 | XMS_ITS | Encounter Summary ---
:1960 Author Organization [facility] [place] [address] Care Team Providers Name Role Phone None Primary Care Provider Unavailable Encounter Details Date Type Department Care Team Description 08/05/2019 [facility] [address] [place] [address] NEUROSURGERY-N [place], [place] [address] (Wo rk) Social History Tobacco Use Types [...] and Spine Center Nahid Carl PsyD (TeleHealth) [facility] [place] [address] (Wo rk) documented as of this encounter Procedures Procedure Name Priority Date/Time Associated Diagnosis Comme nts FILM LIBRARY Routine 08/05/2019 12:00 AM Results for this STORAGE ONLY DX EST procedure ar e in ANKLE the results section. documented in this encounter Results Film Library- Storage Only DX Ankle (08/05/2019 12:00 AM EST) Specimen (Source) Anatomical Location Collection Method / Collectio n Time Received Time / Laterality Volume Narrative HARRY - 09/12/2019 2:01 PM EST This exam is auto-finalizing. It's purpo se is for storage only. Sammy Cheung MD IMGianna FILM LIBRARY ORDERABLES Performing Organization Address City/State/ZIP Code Phon e Number [facility] [place], [place] documented in this encounter Visit Diagnoses Not on filedocumented in this encounter Care Teams Assembler Sandal Parts Relationship Specialty Start Date End Date None PCP - General 07/11/19 09/14/19 None documented as of this encounter
--- OUTSIDE RECORDS SUMMARY | 2022-07-25 10:49 | XMS_ITS | Clinical Summary ---
:1960 Author Organization [facility] [place] [address] Care Team Providers Name Role Phone Savannah Brown APRN Primary Care Provider Allergies Active Allergy Reactions Severity Noted Date Comments Allergen Sot-Anmyk-Cffjj Anaphylaxis High Al lergic to BEES Bee Cis Free Text Allergy Medium food d yes - Hives( gel type medication - bright red and yellow) Cyclobenzaprine Other (See Medium 08/11/2014 hallucinatio ns Comments) Esomeprazole Magnesium Other (See 06/12/2015 Light headed Comments) Orphenadrine Citrate Nausea Only 11/19/2016 Dizzine ss Medications Medication Sig Dispensed Refills Start Date End Date Status Calcium 500 mg Take 1,000 mg by 0 Active TabletIndications: mouth daily. Intervertebral disc disorder with radiculopathy of lumbar region cetirizine (ZYRTEC) 10 Take 10 mg by 0 Active mg Tablet mouth daily. ibuprofen Take 800 mg by 0 Activ e (ADVIL;MOTRIN) 400 mg mouth every 6 Tablet hours as needed for Pain. gabapentin (NEURONTIN) Take 2 capsules 540 capsule 3 9 Active 300 mg by mouth 3 times CapsuleIndications: daily. Lumbosacral spondylosis without myelopathy, Cervical radiculopathy EPINEPHrine (EPIPEN) Inject 0.3 mLs 2 each 1 03/15/2019 Active 0.3 mg/0.3 mL into the muscle Auto-Injector once as needed. rosuvastatin (Crestor) Take 5 mg by 0 09/05/2021 Active 5 mg Tablet mouth daily. meloxicam (MOBIC) 7.5 Take 7.5 mg by 0 11/13/2021 Active mg Tablet mouth 2 times daily as needed for Pain. acetaminophen Take by mouth. 0 04/26/2021 Active (Tylenol) [address] 30 mg 2 times 0 05/19/2022 A ctive (Cymbalta) 30 mg daily. Capsule, Delayed Release(E.C.) Active Problems Problem Noted Date Meralgia paraesthetica, left 05/09/2022 Radiculopathy of lumbar region 12/10/2021 Hyperlipidemia 11/06/2021 Degenerative disc disease, lumbar 11/06/2021 Sigmoid diverticulosis 11/06/2021 Osteopenia 11/06/2021 Bimalleolar fracture of right ankle s/p ORIF 06/27/19 0 06/23/2019 s/p Left shoulder arthroscopic RTC repair, SLAP type I I repair, and SAD: 03/27/2019 09/24/2018; Dr. Bauer Scoliosis (and kyphoscoliosis), idiopathic 03/15/2019 Osteoarthrosis 03/15/2019 Leg pain 03/15/2019 Left hip pain 03/15/2019 Pain in joint, pelvic region and thigh 03/15/2019 Atypical nevi 10/08/2017 Overview: L gluteal fold, noticed at this years an nual-she does not recall seeing in the past there, nor does her spouse according to her-referred to derm 10/08/17-showed N It is 1.5 cm high and 2 cm wide, flat, s ymmetrical, sanchez/brown Perimenopause 10/08/2017 Overview: LMP ~ 2010 Cervical radiculopathy 03/23/2017 Milium 02/19/2017 Neck pain 10/30/2016 Cervical disc disorder with radiculopathy of mid-cervi david region 10/30/2016 Lumbosacral spondylosis without myelopathy 06/23/2014 Lower back pain 05/07/2012 Resolved Problems Problem Noted Date Resolved Date Left-sided muscle weakness 12/25/2016 05/26/2019 Biceps rupture, proximal 10/16/2016 05/26/2019 Acute pain of left shoulder 08/26/2016 05/26/2019 Lumbar strain 05/07/2012 10/08/2017 Finger sprain 02/26/2012 10/08/2017 Left knee pain 01/10/2011 10/08/2017 12/11/10 ARTHROSCOPY KNEE,MENISCECTOMY SINGLE WITH SHAVING 10/08/2017 OSC /LEFT/LATERAL Encounters Date Type Specialty Care Team Description 07/03/2022 Office Visit [facility], Post l aminectomy Krissy Galindo MD syndrome 05/16/2022 Office Visit Neurosurgery Crissy Aguirre, Chronic left -sided MD low back pain w ith left-sided scia matteo (Primary Dx) 05/16/2022 Telephone Neurosurgery Crissy Aguirre MD 05/09/2022 Ancillary Pain Management [facility], Procedure Krissy Galindo MD 05/09/2022 Surgery [facility], NERVE BLOCK, OTHER Krissy Galindo MD PERIPHERAL NE RVE OR BRANCH (WRVU 0. 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, lef t 05/07/2022 Telephone [facility] Sp[facility] Jo Ann Breaux, RN from Last 3 Months Immunizations Name Administration Dates Next Due Hepatitis A Vaccine, unspecified 03/11/2013 formulation Influenza PF, Split 06/16/2019, 06/11/2016, 07/16/2015, 07/06/2014, 06/20/2013, 06/27/2012 Influenza Vaccine (Novel) [id number], 08/01/2009 Injectable Influenza Vaccine PF, Quadrivalent 07/03/2022, 06/27/2021, 0 06/13/2020, 06/29/2018, 07/10/2017 Influenza Vaccine w/Preservative, 07/07/2011 Split Influenza Vaccine, Whole 06/15/2009 Moderna Covid-19 (Maintenance Planner 100mcg) 07/27/2021, 10/23/2020, Vaccine Pfizer Covid-19 Bivalent Booster 07/03/2022 (Sanchez Cap) 30mcg (12yrs+) Td, adult 12/23/2013 Tdap Vaccine 01/28/2006 Typhoid, VICP 03/11/2013 Zoster, Recombinant 03/15/2019 Family History Medical History Relation Comments Lung Cancer Brother 1 Lung Cancer Father 2011 Hyperlipidemia Mother Hypertension Mother stroke 06/17/17 Osteoporosis Mother Breast Cancer Sister 3 Type 2 Diabetes Neg Hx Relation Status Comments Brother 1 Alive Brother 2 Alive Brother 3 Alive Father Mother Sister 1 Alive Sister 2 Alive Sister 3 Alive Social History Tobacco Use Types Packs/Day Years Used Date Former Smoker Cigarettes Quit: 08/12/20 09 Smokeless Tobacco: Never Used Tobacco Cessation: Counseling Given: No Alcohol Use Standard Drinks/Week Comments Yes 0 [...] Assigned at Date Recorded Not on file Last Filed Vital Signs Vital Sign Reading Time Taken Comments Blood Pressure 152/76 07/03/2022 8:34 AM EDT Pulse 76 07/03/2022 8:29 AM EDT Temperature 36.4 ??C (97.5 ??F) 05/16/2022 10:00 AM EDT Respiratory Rate 18 05/16/2022 10:00 AM EDT Oxygen Saturation 100% 07/03/2022 8:29 AM EDT Inhaled Oxygen Concentration - - Weight 77.1 kg (170 lb) 07/03/2022 8:29 AM EDT Height 172.7 cm (5' 8) 07/03/2022 8:29 AM EDT Body Mass Index 25.85 07/03/2022 8:29 AM EDT Plan of Treatment Upcoming Encounters Date Type Specialty Care Team Description 08/07/2022 TH Visit Pain and Spine Center Nahid Carl PsyD (TeleHealth) [facility] [address] [place], [place] [address] (Wo rk) Health Maintenance Due Date Last Done Comments Breast Cancer Share Decision 2000 Needed Zoster vaccine (2 of 2) 05/10/2019 03/15/2019 Breast Cancer screening 09/10/2020 09/10/2018, 09/07/2017, 09/08/2016, Additional history exists Colonoscopy 2021 2011 (Outside per patient (enter details in comments)) Diabetes Screening (HgbA1C or 04/11/2022 04/11/2019, 2017, Glucose) 10/13/2017, Additional history exists HPV test 02/11/2023 02/11/2018, 10/08/2017, 06/12/2013 (Report in eDH) PAP Smear 02/11/2023 02/11/2018, 10/08/2017, 04/14/2013 (Report in eDH) Tetanus vaccine 12/24/2023 12/23/2013, 01/28/2006 Tdap adult Completed 01/28/2006 HIV screen Completed 04/11/2019 Hepatitis C Screening Completed 04/11/2019 Covid-19 Vaccine Completed 07/03/2022, 07/27/2021, 10/23/2020, Additional history exists Influenza (Flu) vaccine Completed 07/03/2022, 06/27/2021, 06/13/2020, Additional history exists Medical Devices Implanted Type Area Smalltalk Developer Device Shelf Model / Identifier Expiration Serial / Date Lot Space,Colnl,Acdf,Lrd,Xlg,7mm ([id number]) (Autoreq) - [id number] IM PLANTS Spine DO NOT USE [id number] / Implanted: Qty: 1 on 03/23/2017 by Abel Delvalle MD at [facility] Cervical [employer] / - [id number] Screw,Self,Tap,2.7x34,Crtx ([id number]) (Autoreq) - [id number] ANTS Right: [employer] [id number] / Implanted: Qty: 1 on 06/27/2019 by Philippe Martinez MD at [facility] Hos pital Ankle - BREAUX NEPH / Explanted Type Area Smalltalk Developer Device Shelf Model / Identifier Expiration Serial / Date Lot Pin,Fix,Temp ([id number]) (Autoreq) - [id number] IMPLANTS Spine DO N OT USE 650.010 / Explanted: Qty: 1 on 03/23/2017 at [facility] Cervical [employer] M edical / - [id number] Screw Self Tap 3.5 X 14 Crtx ([id number]) (Autoreq) - [id number] IM PLANTS Right: [employer] [id number] / Explanted: Qty: 1 on 06/27/2019 at [facility] NEPH / Procedures Procedure Name Priority Date/Time Associated Comments Diagnosis FILM LIBRARY STORAGE Routine 05/13/2022 9:23 AM R esults for this ONLY PAIN CLINIC EDT procedure a re in ULTRASOUND the results section. NERVE BLOCK, OTHER 05/09/2022 3:12 PM Lateral femoral PERIPHERAL NERVE OR EDT cutaneous BRANCH (WRVU 0.75) neuropathy, left NERVE BLOCK, OTHER Routine 05/09/2022 2:53 PM Lateral femoral PERIPHERAL NERVE OR EDT cutaneous BRANCH neuropathy, left from Last 3 Months Results Film Library- Storage Only Pain Clinic Ultrasound (05/13/2022 9:23 AM EDT) Specimen (Source) Anatomical Location Collection Method / Collectio n Time Received Time / Laterality Volume Narrative RAD - 05/13/2022 9:23 AM EDT See PACS for result report. Krissy Nation MD IMG FILM LIBRARY ORDERABLES Performing Organization Address City/State/ZIP Code Phon e Number [place], [place] from Last 3 Months Insurance Payer Benefit Plan Subscriber ID Effective Dates Phone Address Type / Group [facility] [id number] 2016-Pres [phone] [facility] ent [address] [place] [address] HEALTH PLANS HEALTH PLANS [id number] 2019-Presen [phone] [address] [place] [address] [facility] Workers Comp Employer 09/28/1900 [id number] [facility] (Home) [address] [phone] [place], [place] (Work) [id number] Advance Directives Documents on File Type Date Recorded Patient Fur Glosser Explanati on Personal Fur Glosser 06/27/2019 9:57 AM Joshua Shaw Latest Code Status on File Code Status Date Activated Date Inactivated Comments Full Code 06/27/2019 12:29 PM 06/27/2019 6:45 PM Does patient have capacity to make decision: Yes Full Code 06/27/2019 12:22 PM 06/27/2019 12:29 PM Does patient have capacity to make decision: Yes Full Code 03/23/2017 10:28 AM 03/24/2017 3:04 PM Does patient have capacity to make decision: Yes Full Code 03/23/2017 6:31 AM 03/23/2017 10:28 AM Does patient have capacity to make decision: Yes Full Code 08/11/2014 9:35 PM 08/14/2014 10:31 PM Order Status: Initial Order Does patient have decision making capacity? Yes, Order is based on Patients wishes. Care Teams Childcare Administrator Relationship Specialty Start Date End Date Savannah Brown APRN PCP - General Family Medicine 08/28/[address] [place] [address]
--- OUTSIDE RECORDS SUMMARY | 2022-07-25 10:49 | XMS_ITS | Encounter Summary ---
:1960 [place] [address] Care Team Providers Name Role Phone None Primary Care Provider Unavailable Encounter Details Date Type Department Care Team Description 08/08/2019 Telephone Orthopaedics at Philippe Cheney MD [facility] [address] Memo Mora [place] [address] [place] [address] [phone] (Wo rk) Social History Tobacco Use Types [...] this encounter Miscellaneous Notes Telephone Encounter - Philippe Martinez MD - 08/08/2019 12:01 PM EST I received a call on my cell phone from Mrs. Colin Lewis's . She developed a quick onset deep lateral infection in her operative ankle. She is now admitted to [facility] in [place], [place]. SHe had an I+D with retention of the hardware, a PICC was placed, and she will be on Ancef and Rifampin for 4 weeks. Otherwise the hardware and fracture appeared in good placement. documented in this encounter Plan of Treatment Upcoming Encounters Date Type Specialty Care Team Description 08/07/2022 TH Visit [facility] Sp[facility] Center Nahid Carl PsyD (TeleHealth) [facility] [address] [place], [place] [address] (Wo rk) documented as of this encounter Visit Diagnoses Not on filedocumented in this encounter Care Teams Contract Associate Manager Relationship Specialty Start Date End Date None PCP - General 07/11/19 09/14/19 None documented as of this encounter
--- OUTSIDE RECORDS SUMMARY | 2022-07-25 10:49 | XMS_ITS | Encounter Summary ---
:1960 Author Organization [facility] [address] Care Team Providers Name Role Phone Vance Valiente APRN Primary Care Provider Encounter Details Date Type Department Care Team Description 10/28/2019 Orders Only Occupational Medicine at [place] Westfall APRN [facility] [place] [address] [place] [address] [phone] Social History Tobacco Use Types Packs/Day Years [...] [facility] Nahid Carl PsyD (TeleHealth) [facility] [address] [place] [address] (Wo rk) documented as of this encounter Procedures Procedure Name Priority Date/Time Associated Diagnosis Comme nts QUANTIFERON-TB GOLD Routine 10/28/2019 10:45 AM R esults for this EST procedure are i n the results section. documented in this encounter Results (ABNORMAL) QuantiFERON-TB Gold (10/28/2019 10:45 AM EST) [facility] Method Time Signature QFT Nil 1.910 IU/mL [facility] QFT TB Ag1-Nil 5.630 IU/mL [facility] QFT TB Ag2-Nil 5.540 IU/mL [facility] QFT 7.840 IU/mL [facility] Mitogen-Nil [facility] Quantiferon TB Positive (A) Negative [facility] Quantiferon TB M. tuberculosis infection likely [facility] A positive specimen should h ave a TB1 Ag and/or TB2 Ag minus Nil value greater NATALIE than or equal to 0.35 IU/mL and the TB Ag minus Nil va lue from the same tube [facility] must be greater than or equal to 25% of the Nil Value. HOSPITAL A positive QFT-Plus result s hould be followed by further medical evaluation for LABORATORY active tuberculosis disease (e.g. Acid fast bacilli sm ear and culture, chest X-ray). A positive QFT-Plus result can suggest and support the diagnosis of tuberculosis disease. However ESAT-6, CF P-10 and TB7.7 antigens are not unique to M. tuberculosis and are also found in other mycobacteria such as M. kansasii, M. szulgai, and M. marinum. In fection with these other organisms may also produce QTF-Plus positive results. If such infections a re suspected alternative tests should be performed. Comment: The performance of the QFT-Plus assay breen s not been extensively evaluated with specimens from the following individuals : Individuals who have impaired or altered immune functions, such as those who have HIV infection or AIDS, those who breen ve transplantation managed with immunosuppressive treatment or others wh o receive immunosuppressive drugs (e.g., corticosteroids, methotrexate, az athioprine, cancer chemotherapy), those who have other clinical conditions, such as diabetes, silicosis, chronic renal failure, and hematological disorders (e. g., leukemia and lymphomas), or those with other specific malignancies (e.g., carcinoma of the head or neck and lung). Individuals younger than age 17 years women. Diagnosis of, or the exclusion of tuberc ulosis disease, and assessment of Latent Tuberculosis Infection (LTBI) req uires a combination of epidemiological, historical, Medical and diagnostic findi ngs that should be taken into account when interpreting QFT-Plus results. Specimen Anatomical Collection Method Collection Time Receive d Time (Source) Location / / Volume Laterality Blood specimen Venous Draw / 10/28/2019 10:45 10/31/19 20 7:26 (specimen) Unknown AM EST AM EST Resulting Agency Comment Spec In Lab Iza Westfall APRN CHEMISTRY ORDERABLES Performing Organization Address City/State/[place] [address] documented in this encounter Visit Diagnoses Not on filedocumented in this encounter Care Teams Vice President Of Engineering Relationship Specialty Start Date End Date Vance Valiente APRN PCP - General Family Medicine 09/15/19 08/27/[address] [facility] [address] [place] [address] documented as of this encounter
--- OUTSIDE RECORDS SUMMARY | 2022-07-25 10:49 | XMS_ITS | Encounter Summary ---
:1960 Author Organization [facility] [place] [address] Care Team Providers Name Role Phone Savannah Brown APRN Primary Care Provider Reason for Referral Consultation (Routine) - Authorized Specialty Diagnoses / Procedures Referred By Contact Refer red To Contact [facility] Diagnoses Post laminectomy syndrome SCS Implant Screen Krissy Nation Dana M, M, MD [facility] [place] [address] Fax: Referral ID Status Reason Start Expiration Visits Visits Date Date Requested Authorized [id number] Authorized Evaluate and 07/03/2022 07/03/2023 1 1 Treat Reason for Visit Reason Comments Follow-up FU EXT- Chronic low back and left leg pain / ? SCS Consultation (Routine) - Closed Specialty Diagnoses / Procedures Referred By Contact Refer red To Contact [facility] Diagnoses Chronic left-sided low back pain with left-sided sciatica Pain - Chronic low back & left leg pain/ ?SCS/ no new imaging *FVE w/ Crissy Herrera MD Vrooman, Bruce M, MD [facility] [address] [facility] [place] [address] [place] [address] Fax: Referral ID Status Reason Start Date Expiration Date Visits V isits Requested Authorized [id number] Closed Consult, 05/16/2022 05/16/2023 1 1 Test & Treat Encounter Details Date Type Department Care Team Description 07/03/2022 Office Visit Pain [facility] Sp[facility] Krissy Nation Post laminectomy at [facility] MD Mateo syndrome [address] [place], [place], [place] [phone] Social History Tobacco Use Types Packs/Day Years [...] Pulse 76 07/03/2022 8:29 AM EDT Temperature - - Respiratory Rate - - Oxygen Saturation 100% 07/03/2022 8:29 AM EDT Inhaled Oxygen Concentration - - Weight 77.1 kg (170 lb) 07/03/2022 8:29 AM EDT Height 172.7 cm (5' 8) 07/03/2022 8:29 AM EDT Body Mass Index 25.85 07/03/2022 8:29 AM EDT documented in this encounter Patient Instructions Patient InstructionsYoKrissy dukes MD - 07/03/2022 8:45 AM EDT Take 30 mg at [facility] 2 weeks then stop documented in this encounter Progress Notes Krissy Nation MD - 07/03/2022 8:45 AM EDT [facility] Initial Consultation Note Date of visit: 07/03/22 : 1960 Consulting Physician: Seeing at the request of Crissy Aguirre MD [facility] [place] [address]. Chief Complaint: Lower back and leg pain History of Present Illness: Fely Shaw is a 62 y.o. female who was last seen in [...] noticed the numbness after using a treadmill. Interim HPI 07/19: Patient seen 3 months ago for initial consultation with the fellow for ? Meralgia paresthetica vs post laminectomy pain. LFCN nerve block performed and she felt it increased pain rather than decrease (in Op note pain 5-> 3/10) despite numbness in expected distribution in 03/2022. She was seen in follow up with Dr Aguirre at that point they discussed SCS post laminectomy syndrome vs repeat exploration of the L5-S1 foramen and further decompression of the nerve root. This carries some risk of further destabilizing the spine potentially. She also recommended consideration of Cymbalta by PCP. She started the Cymbalta -> does help some but make her feel bad dizzy and tired. Gabapentin has improved the anterior and anterolateral thigh pain but still has numbness. However this is not a major concern for her. Her most significant pain generator is her Lower back and LLE pain(posterior thigh, lateral calf, numbness but no pain in foot but feels like sock is always folded under foot. Onset/Context of pain: Pain location: as above [...] as above Acetaminophen - as above Antidepressants Cymbalta -> AE Antiepileptics - as above Muscle Relaxants - allergic to multiple Opioids - denies Steroids - September PT: Last PT was on complete summer 2021 Injections: Lumbar SUE x 2 prior to surgery (first one helpful and second one not helpful, LFCN block -> not helpful CT guided SIJ 2017 x [address] guided Left L5 TFESI -> not helpful Surgery: Patient is s/p lumbar surgery Acupuncture: None Other: Denies Chart review: Today I have reviewed available medical information in the patient's medical record at [facility]), including relevant provider notes, laboratory work, and [...] M85.80 ??? Radiculopathy of lumbar region M54.16 ??? Meralgia paraesthetica, left G57.12 Past Medical History: Diagnosis Date ??? Atypical [...] (WRVU 11.94) performed by Abel Delvalle MDat [facility] MAIN OR ??? PRO ARTHRODESIS, ANT INTERBODY,DECOMPRESSION; CERVICAL BELOW C2 Bilateral 03/23/2017 ARTHRODESIS, ANT INTERBODY,DECOMPRESSION; CERVICAL BELOW C2 (WRVU 25) performed by Abel Delvalle MD at [facility] MAIN OR ??? PRO AUTOGRAFT SPINE SURGERY MORSELIZED SEP INCISION Bilateral 03/23/2017 AUTOGRAFT FOR SPINE SURGERY ONLY; MORSELIZED (THROUGH SEPARATE SKIN OR FASCIAL INCISION) (WRVU 2.79) performed by Abel Delvalle MD at [facility] MAIN OR ? ? PRO INJECTION ANES AGENT &/OR STEROID OTHER PERIPHERAL NERVE/BRANCH Left 05/09/2022 NERVE BLOCK, OTHER PERIPHERAL NERVE OR BRANCH (WRVU 0.75) performed by Krissy Nation MD at [facility] PAIN MGMT MSO ??? PRO INSERT BIOMCHN DEV INTERVERTEBRAL DSC SPC W/ARTHRD Bilateral 03/23/2017 INSERTION INTERBODY BIOMECH DEV TO INTERVEBRAL DISC SPACE, EA INTERSPACE (WRVU 4.25) performed by Abel Delvalle MD at [facility] MAIN OR ??? PRO OPEN TREATMENT BIMALLEOLAR ANKLE FRACTURE Right 06/27/2019 ORIF BIMALLEOLAR ANKLE FX. (WRVU 10.62) performed by Philippe Martinez MD at [facility] MAIN OR ??? SHOULDER ARTHROSCOPY Left 08/2018 Medications: Medications were reconciled and updated in the electronic medical record. Current Outpatient Medications: ??? DULoxetine DR (Cymbalta) 30 mg Capsule, Delayed Release(E.C.), 30 mg 2 times daily., Disp: , Rfl: ??? meloxicam (MOBIC) 7.5 mg Tablet, Take 7.5 mg by mouth 2 times daily as needed for Pain., Disp: ,Rfl: ??? acetaminophen (Tylenol) 500 mg Tablet, Take by mouth., Disp: , Rfl: ??? rosuvastatin (Crestor) 5 mg Tablet, Take 5 mg by mouth daily., Disp: , Rfl: ??? gabapentin (NEURONTIN) 300 [...] by mouth daily., Disp: , Rfl: ??? ibuprofen (ADVIL;MOTRIN) 400 mg Tablet, Take 800 mg by mouth every 6 hours as needed for Pain., Disp: , Rfl: Allergies: Allergies Allergen Reactions ??? Allergen Swo-Hzxtm-Zprkv Bee Anaphylaxis Allergic to BEES ??? Cis Free Text Allergy food dyes - Hives( gel type medication- bright red and yellow) ??? Cyclobenzaprine Other (See Comments) hallucinations ??? Nexium [Esomeprazole Magnesium] Other (See Comments) Light headed ??? Norflex [Orphenadrine Citrate] Nausea Only Dizziness Social History: Social History Tobacco Use ??? Smoking status: Former Smoker Types: Cigarettes Quit date: 08/12/2009 Years since quittin.8 ??? Smokeless tobacco: Never Used Vaping Use ??? Vaping Use: Never used Substance Use Topics ??? Alcohol use: Yes Comment: Occasional ??? 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 Physical Exam: Blood pressure 152/76, pulse 76, height 172.7 cm (5' 8), weight 77.1 kg (170 lb), SpO2 100 %. General: Well-nourished, well-developed, female in no acute distress Respiratory: Non-labored breathing pattern on RA. No respiratory distress Skin: No appreciable rashes or skin breakdown Psych: Appropriate affect, answers questions appropriately Gait/Station - Normal gait. No loss of [...] y.o. female with a past medical history who presents for possible SCS for I have recommended a spinal cord stimulation (SCS) trial for Ms. Shaw. Ms. Shaw has a known diagnosis of post laminectomy syndrome. She has had invasive procedures which have failed. She has also been trial on numerous medications including Gabapentin, Cymbalta, Steroids, NSAIDS, muscle relaxats. Itis my opinion that Ms. Shaw is psychologically stable. She will be referred for a comprehensive psychological evaluation prior to the SCS trial. She understands that this evaluation is manditory for any patient for which we are considering an SCS trial. She will also be referred for a thoracic spine MRI without contrast after that evaluation to make sure that there is nothing in her thoracic spine which would preclude the trial +/- implant. Previous treatment history Do you have a history of completing formal Physical therapy? Yes, Completed summer 2021 Do you currently exercise? Yes Any current/prior history of taking Opioids? None Any current/prior history of taking pregabalin or gabapentin? Yes, Currently taking 600 TID Any current/prior history of taking NSAIDS? Mobic, IBU Any current/prior history of taking Muscle relaxants? Yes, -> Allergy Any current/prior history of taking duloxetine or venlafaxine for pain? Yes, Not tolerated Any previous Injections for this pain? Yes, SIJ, TFESI Any previous Surgery for this pain? Yes Any previous alternative treatments (e.g. Massage, acupuncture, TENS, chiropractic, bracing) for this pain? Yes, TENS Psychological interventions? No There is considerable evidence supporting the use of Spinal Cord Stimulation (SCS) for Failed Back Surgery Syndrome (FBSS) and other selected chronic pain conditions. According to the Official Disability Guidelines: Spinal Cord Stimulation is a treatment that has been used for more than 30 years, but only in recent years has it met with widespread acceptance and recognition by the medical community. In the last decade, there has been growing awareness that SCS is a reasonably effective therapy for many patients suffering from neuropathic pain for which there isno alternative therapy. There are several reasons for this development, the principal one being thatthe indications have been more clearly identified. The enhanced design of electrodes, leads, and receivers/stimulators has substantially decreased the incidence of re-operations for device failure. Furt her, the introduction of the percutaneous electrode implantation has enabled trial stimulation, which is now commonly recognized as an indispensable step in assessing whether the treatment is appropriate for individual patients. These implantable devices have a very high initial cost relative to conventional medical management (CMM); however, over the lifetime of the carefully selected patient, SCS may lead to cost-saving and more health gain relative to CMM for FBSS. Fair evidence supports the use of spinal cord stimulation in failed back surgery syndrome, those with persistent radiculopathy aftersurgery, according to the joint [place] [employer]/ [place] Pain Society guideline recom mendations on surgery and interventional treatments. (Almaz, 2008) The National [employer] for Health and Clinical Excellence (NICE) of the [place] completed their Final Appraisal Determination (FAD) of the medical evidence on spinal cord stimulation (SCS), concluding that SCS is recommended as a treatment option for adults with failed back surgery syndrome lasting at least 6 months despite appropriate conventional medical management. (NICE, 2008) These implantable devices have a very high initial cost relative to conventional medical management (CMM); however, over the lifetime of the carefully selected patient, SCS may lead to cost-saving and more health gain relative to CMM for FBSS and CRPS. (Karuna,2005) (Karuna, 2006) SCS for treatment of chronic nonmalignant pain, including FBSS, has demonstrated a 74% long-term success rate (Nilson, 2006). SCS for treatment of failed back surgery syndrome (FBSS) reported better effectiveness compared to reoperation. (Andre, 2005) A cost utility analysis of SCSversus reoperation for FBSS based on this RCT concluded that SCS was less expensive and more effective than reoperation, and should be the initial therapy of choice. Should SCS fail, reoperation is unlikely to succeed. (Andre, 2007) Neuromodulation may be successfully applied in the treatment of visceral pain, a common form of pain when internal organs are damaged or injured, if more traditional analgesic treatments have been unsuccessful. (Josemanuel, 2006) (Edith, 2007) A recent RCT of 100 failed back surgery syndrome (FBSS) patients randomized to receive spinal cord stimulation plus conventional medical management (SCS group) or conventional medical management alone (CMM group), found that 48% ofSCS patients versus 9% of CMM patients achieved the primary outcome of 50% or more pain relief at 6 months. This study, funded by [employer], suggested that FBSS patients randomized to spinal cord stimulation had 9 times the odds of achieving the primary end point. (Nilson, 2007) According to the Federation of Neurological Societies (EFNS), spinal cord stimulation (SCS) is efficacious in failed back surgery syndrome (FBSS). (Yasmine, 2007) Recent research: New 24-month data is available from a study randomizing 100 failed back surgery syndrome patients to receive spinal cord stimulation (SCS) plus conventional medical management (CMM) orCMM alone. At 24 months, the primary outcome was achieved by 37% randomized to SCS versus 2% to conventional medical management (CMM), and by 47% of patients who received SCS as final treatment versus 7% for CMM. All 100 patients in the study had undergone at least one previous anatomically successfulspine surgery for a herniated disc but continued to experience moderate to severe pain in one or both legs, and to a lesser degree in the back, at least six months later. Conventional medical therapiesincluded oral medications, nerve blocks, steroid injections, physical and psychological therapy and/or direct care staffer. (Nilson, 2008) (Case, 2009) There is fair evidence that spinal cord stimulation is moderately effective for failed back surgery syndrome with persistent radiculopathy, though device- related complications are common. (Ramon, 2009) A nonrandomized, prospective cohort study in [facility] patients with chronic back and leg pain after spine surgery, i.e., failed back surgery syndrome(FBSS), found no significant difference in pain, disability, or opioid use between patients that received (at least a trial of) SCS, care at a pain clinic, or neither (usual care) at 12 and 24 months. Only 25% of SCS patients in this study received psychological screening prior to the trial, whereas ODG recommends psychological screening prior to all SCS implantations. Because few patients in any group in this study achieved success at any follow-up, the authors suggested that no treatment has a substantial impact on average in this patient group. (Vimal, 2010) In this sample of workers' compensation recipients, the high procedure cost of SCS was not counterbalanced by lower costs of subsequent care, and SCS was not cost- effective. The benefits and potential cost savings reported in RCTs may notbe replicated in workers' comp patients. (Jeimy, 2011) Plan/Recommendations: We reviewed etiology, predisposing factor(s), natural course, imaging results as well as treatment options including medications, physical therapy/exercise, therapeutic injections, and surgery. The risks, consequences, alternatives, and benefits of various treatment options were discussed with the patient in great detail. - Medications: No new prescription at this time. Patient will continue current meds. - Imaging: No new imaging indicated at this time. Will plan for Thoracic MRI wo after psychologic evaluation if proceeding with trial - Physical therapy/modalities/DME: Continue home exercise program. - Interventional/Surgical procedures: Plan for SCS for post laminectomy syndrome -> lower back and LLE pain as above assuming deemed appropriate after psychological evaluation and Thoracic MRI - Referrals: Dr Carl for SCS Psychologic evalution - Activity: Continue activity as tolerated. - Education: In depth conversation about the risks and benefits of SCS as well as the process including trial and permanent implant. We also discussed the purpose of psychologic evaluation in minimizing risk and helping to identify any modifiable risk factors that could predispose her to device failure. - Follow-up: 2 weeks after SCS eval with Dr Carl, ok Thank you for allowing us the opportunity to participate in Fely Garcia Colin's care. Krissy Nation MD [facility] Benefits Assistant of Anesthesiology [facility] [employer] [address] [phone] / [facility] documented in this encounter Plan of Treatment Upcoming Encounters Date Type Specialty Care Team Description 08/07/2022 TH Visit [facility] and Sp[facility] Center Nahid Carl PsyD (TeleHealth) [facility] [address] [place] [address] (Wo rk) Scheduled Referrals Name Type Priority Associated Diagnoses Order S chedule Referral to Pain Outpatient Referral Routine Post laminectomy Ordered: and Spine Center syndrome 07/03/2022 (Internal only) documented as of this encounter Visit Diagnoses Diagnosis Post laminectomy syndrome Postlaminectomy syndrome, unspecified re julia documented in this encounter Care Teams Excelsior Picker Relationship Specialty Start Date End Date Savannha Brown APRN PCP - General Family Medicine 08/28/[address] [place] [address] [address] [place] [address] documented as of this encounter
--- OUTSIDE RECORDS SUMMARY | 2022-07-25 10:49 | XMS_ITS | Encounter Summary ---
:1960 Author Organization [facility] [place] [address] Care Team Providers Name Role Phone Savannah Brown APRN Primary Care Provider Encounter Details Date Type Department Care Team Description 10/25/2021 Ancillary Procedure Radiology Library at Kami Brown[address] [phone] Social History Tobacco Use Types Packs/Day Years [...] and Spine Center Nahid Carl PsyD (TeleHealth) [facility] [address] [place] [address] (Wo rk) documented as of this encounter Procedures Procedure Name Priority Date/Time Associated Diagnosis Comme nts FILM LIBRARY Routine 10/25/2021 12:00 AM Results for this STORAGE ONLY MR EST procedure ar e in SPINE the results section. documented in this encounter Results Film Library- Storage Only MR Spine (10/25/2021 12:00 AM EST) Specimen (Source) Anatomical Location Collection Method / Collectio n Time Received Time / Laterality Volume Narrative LARRY MCDONALD - 10/27/2021 5:15 AM EST This exam is auto-finalizing. It's purpo se is for storage only. Savananh Brown APRN IMG FILM LIBRARY ORDERABLES Performing Organization Address City/State/ZIP Code Phon e Number [place], [place] documented in this encounter Visit Diagnoses Not on filedocumented in this encounter Care Teams Programmer Analyst Health It Relationship Specialty Start Date End Date Savannah Brown APRN PCP - General Family Medicine 08/28/[address] [place] [address] documented as of this encounter
--- OUTSIDE RECORDS SUMMARY | 2022-07-25 10:49 | XMS_ITS | Encounter Summary ---
:1960 Author Organization [facility] [place] [address] Care Team Providers Name Role Phone Savannah Brown APRN Primary Care Provider Encounter Details Date Type Department Care Team Description 02/21/2022 Telephone Neurosurgery at [facility] Crissy Aguirre MD [facility] [place] [address] NEUROSURGERY [phone] [place], [place] [address] (Wo rk) Social History Tobacco [...] this encounter Miscellaneous Notes Telephone Encounter - Dai Aleyda G - 02/21/2022 1:52 PM EDT Called pt scheduled 05/16 OV w/JH Provided pt w/Pain clinic number to f/u on Scheduling block Fely Shaw - 02/14/22 Crissy Aguirre MD Sent: ThuFebruary 19, 2022 ??2:00 PM To: P [facility] Neurosurgery [place] ?? Message Plan: 1. Referral to pain clinical for LFCNT, ilioinguinal nerve blocks 2. Continue PT 3. RTC 3 months Thank you, Sera documented in this encounter Plan of Treatment Upcoming Encounters Date Type Specialty Care Team Description 08/07/2022 TH Visit [facility] Nahid Carl PsyD (TeleHealth) [facility] [address] [place] [address] (Wo rk) documented as of this encounter Visit Diagnoses Not on filedocumented in this encounter Care Teams Vice President Of Brand Management Relationship Specialty Start Date End Date Savannah rBown APRN PCP - General Family Medicine 08/28/[address] [place] [address] documented as of this encounter
--- OUTSIDE RECORDS SUMMARY | 2022-07-25 10:49 | XMS_ITS | Encounter Summary ---
:1960 [place] [address] Care Team Providers Name Role Phone Vance Valiente APRN Primary Care Provider Reason for Visit Reason Onset Date Comments Establish [facility] 09/15/2019 Encounter Details Date Type Department Care Team Description 09/15/2019 [address] Medicine [address] [facility] [place] [address] Social History Tobacco Use Types Packs/Day Years [...] this encounter Miscellaneous Notes Telephone Encounter - Willie Tavares - 09/15/2019 2:45 PM EST Ask caller: are you a physician, resident or medical student? no Caller and Relationship (if other than patient-full name): patient Call Back Number: [phone] Best Time to Call Back: any OK to Leave Message: yes Requested Site/Provider: Laurita Marcin Immediate Needs: Osteoporosis Comments: documented in this encounter Plan of Treatment Upcoming Encounters Date Type Specialty Care Team Description 08/07/2022 TH Visit [facility] Nahid Carl PsyD (TeleHealth) [facility] [address] [place] [address] (Wo rk) documented as of this encounter Visit Diagnoses Not on filedocumented in this encounter Care Teams Business Systems Architect Relationship Specialty Start Date End Date Vance Valiente, NATURAL RESOURCES ENGINEER PCP - General Family Medicine 09/15/19 08/27/[address] [facility] [address] [address] documented as of this encounter
--- OUTSIDE RECORDS SUMMARY | 2022-07-25 10:49 | XMS_ITS | Encounter Summary ---
:1960 Author Organization [facility] [place] [address] Care Team Providers Name Role Phone Vance Valiente APRN Primary Care Provider Encounter Details Date Type Department Care Team Description 10/28/2019 Laboratory Appointment Lab 3L [facility] [place] [address] Social History Tobacco Use Types Packs/Day [...] and Spine Center Nahid Carl PsyD (TeleHealth) [facility] [address] [place] [address] (Wo rk) documented as of this encounter Visit Diagnoses Not on filedocumented in this encounter Care Teams Bed Laster Relationship Specialty Start Date End Date Vance Valiente APRN PCP - General Family Medicine 09/15/19 08/27/[address] [facility] [address] [place] [address] documented as of this encounter
--- OUTSIDE RECORDS SUMMARY | 2022-07-25 10:49 | XMS_ITS | Encounter Summary ---
:1960 Author Organization [facility] Address [facility] [place] [address] Care Team Providers Name Role Phone Savannah Brown APRN Primary Care Provider Reason for Visit Auth/Cert Specialty Diagnoses / Procedures Referred By Contact Refer red To Contact Diagnoses Left lateral cutaneous neuralgia Krissy Nation MD [facility] Procedures PRO INJECTION ANES AGENT &/OR STEROID OTHER PERIPHERAL NERVE/BRANCH NERVE BLOCK, OTHER PERIPHERAL NERVE OR BRANCH (WRVU 0.75) [facility] [place] [address] Referral ID Status Reason Start Date Expiration Date Visits Requ ested Visits Authorized [id number] 1 1 Encounter Details Date Type Department Care Team Description 05/09/2022 Ancillary Procedure Pain Management Daniela Shaver Lucassarthak Galindo MD [facility] [place] [address] [place] [address] [phone] Social History Tobacco Use Types Packs/Day Years [...] and Spine Center Nahid Carl PsyD (TeleHealth) [facility] er [address] [place] [address] (Wo rk) documented as of this encounter Procedures Procedure Name Priority Date/Time Associated Comments Diagnosis FILM LIBRARY STORAGE Routine 05/13/2022 9:23 AM R esults for this ONLY PAIN CLINIC EDT procedure a re in ULTRASOUND the results section. documented in this encounter Results Film Library- Storage Only Pain Clinic Ultrasound (05/13/2022 9:23 AM EDT) Specimen (Source) Anatomical Location Collection Method / Collectio n Time Received Time / Laterality Volume Narrative RAD - 05/13/2022 9:23 AM EDT See PACS for result report. Krissy Nation MD IMG FILM LIBRARY ORDERABLES Performing Organization Address City/State/ZIP Code Phon e Number [place], [place] documented in this encounter Visit Diagnoses Not on filedocumented in this encounter Care Teams Assistant Counsel Relationship Specialty Start Date End Date Savannah Brown APRN PCP - General Family Medicine 08/28/[address] [place] [address] documented as of this encounter
--- OUTSIDE RECORDS SUMMARY | 2022-07-25 10:49 | XMS_ITS | Encounter Summary ---
:1960 Author Organization [facility] [place] [address] Care Team Providers Name Role Phone Vance Valiente APRN Primary Care Provider Encounter Details Date Type Department Care Team Description 10/25/2019 Ancillary Procedure Radiology XRay at [facility], Aftercare following the Multi-Specialty MD surgery for injury Clinic at [facility] and trauma [address] [place] [address] DR [place], [place] [facility] [address] SURGERY [phone] [place] [address] Social History Tobacco Use Types Packs/Day Years [...] and Spine Center Nahid Carl PsyD (TeleHealth) [facility] [address] [place] [address] (Wo rk) documented as of this encounter Procedures Procedure Name Priority Date/Time Associated Diagnosis Comme nts XR ANKLE MIN 3 Routine 10/25/2019 9:42 AM Aftercare following Results for this VIEWS RIGHT EST surgery for injury procedure are in and trauma the results section. documented in this encounter Results XR Ankle Min 3 views Right (Generic) (10/25/2019 9:42 AM EST) Anatomical Region Laterality Modality Ankle Right Digital Radiography Specimen (Source) Anatomical Location Collection Method / Collectio n Time Received Time / Laterality Volume Impressions 10/25/2019 10:19 AM EST Healed fractures with near anatomic alignment and no evidence of hardware complication. Thank you for letting us participate in the care of this patient. For questions regarding this report, please contact e number below. ? Narrative 10/25/2019 10:19 AM EST EXAMINATION: XR ANKLE MIN 3 VIEWS RIGHT (GENERIC) CLINICAL HISTORY: s/p ORIF of bimalleola r fx TECHNIQUE: 3 views RIGHT ankle COMPARISON: Right ankle radiographs 07/11/2019 FINDINGS: Alignment is maintained, remaining near anatomic. Fracture lines have been obliterated. Distal right fibular plate and screw fixation components are unchanged. Medial malleolar interfragmen tary screws are also unchanged in position. No suspicious lucencies adjace nt to the hardware components. The ankle mortise is congruent. Procedure Note Abhilash Pedroza MD - 10/25/2019Formattin g of this note might be different from the original. EXAMINATION: XR ANKLE MIN 3 VIEWS RIGHT (GENERIC) CLINICAL HISTORY: s/p ORIF of bimalleola r fx TECHNIQUE: 3 views RIGHT ankle COMPARISON: Right ankle radiographs 07/11/2019 FINDINGS: Alignment is maintained, remaining near anatomic. Fracture lines have been obliterated. Distal right fibular plate and screw fixation components are unchanged. Medial malleolar interfragmen tary screws are also unchanged in position. No suspicious lucencies adjace nt to the hardware components. The ankle mortise is congruent. IMPRESSION Healed fractures with near anatomic alig nment and no evidence of hardware complication. Thank you for letting us participate in the care of this patient. For questions regarding this report, please contact e number below. Philippe Martinez MD IMG DX ORDERABLES documented in this encounter Visit Diagnoses Diagnosis Aftercare following surgery for injury a nd trauma documented in this encounter Care Teams Midlevel Provider Relationship Specialty Start Date End Date Vance Valiente, HOCKEY SCOUT PCP - General Family Medicine 09/15/19 08/27/[address] [facility] [place] [address] documented as of this encounter
--- OUTSIDE RECORDS SUMMARY | 2022-07-25 10:49 | XMS_ITS | Encounter Summary ---
:1960 Author Organization [facility] [place] [address] Care Team Providers Name Role Phone Savannah Brown JE Primary Care Provider Encounter Details Date Type Department Care Team Description 12/10/2021 Office Visit Neurosurgery at [facility] Eileen Gordillo Radiculopathy of [facility] C, [place] [address] Center [phone] [place], [place] [address] Social History Tobacco Use Types [...] Sign Reading Time Taken Comments Blood Pressure 154/80 12/10/2021 9:46 AM EDT Pulse 85 12/10/2021 9:46 AM EDT Temperature 37.1 ??C (98.7 ??F) 12/10/2021 9:46 AM EDT Respiratory Rate 18 12/10/2021 9:46 AM EDT Oxygen Saturation - - Inhaled Oxygen - - Concentration Weight 77.3 kg (170 lb 7.1 12/10/2021 9:46 AM with evangelina er boots on oz) EDT Height 172.7 cm (5' 8) 12/10/2021 9:46 AM EDT Body Mass Index 25.92 12/10/2021 9:46 AM EDT documented in this encounter Progress Notes Eileen Gordillo APRN - 12/10/2021 10:00 AM EDT Name: Fely Shaw : 1960 PCP: Savannah Brown APRN REF: Savannah Brown Date of Service: 12/10/2021 CHIEF COMPLAINT Follow up lumbar radiculopathy HISTORY OF PRESENT ILLNESS Fely Shaw returns today in follow up of lumbar radiculopathy in setting of roto-levoconvex curvature of lumbar spine with asymmetric degenerative changes and anterolisthesis at L4 on L5 and L5 on S1.She had a previous lumbar decompression with Dr. Sammy Cheung in 2013 with good effect. 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. In September she developed acute LBP with radiation into left L buttock and hip with numbness of left buttock. Initially went to ED at [employer] [employer] and was given prednisone burst, pain medications with positive effect. She continues to experience pain and numbness in the left buttock, hip and has difficulty with sustained activity. She had done about 4 weeks of PT and feels with improvement in left hip flexionand overall mobility. However, she continues to experience fatigue and heaviness in the left leg when walking distances of more than several hundred feet and a pins and needles sensation in the left hip radiating into the medial aspect of the left proximal left thigh. She has long standing numbness inL4 distribution in left leg as well as numbness in the 4-5 toes of left foot. The numbness in the lateral aspect of left foot was previously intermittent and now is constant. She recently completed LE EMG which showed chronic L4-5 radiculopathy. She takes gabapentin since for chronic left radicular symptoms which she has had since previous surgery in 2013. If she stops taking it she has more left leg pain. She is also taking Meloxicam 7.5 mg BID with good effect. She has previously tried lumbar SUE without significant relief. She notes that sensation when bladder is full is slightly diminished; she denies changes to sphincter control. PAST MEDICAL HISTORY Patient Active Problem List Diagnosis Code ??? [...] ??? Sigmoid diverticulosis K57.30 ??? Osteopenia M85.80 Past Medical History: Diagnosis Date ??? Atypical [...] spondylosis without myelopathy 06/23/2014 Past Surgical History: Procedure Laterality Date ??? BACK SURGERY 2013 see neuro notes ??? CERVICAL SPINE SURGERY 2016 ??? LAMINOTOMY Left 2013 APD ??? PRO ANTERIOR INSTRUMENTATION 2-3 VERTEBRAL SEGMENTS Bilateral 03/23/2017 ANT. SPINAL INSTRUMENTATION, 2-3 VERTEBRA, SEGMENTED (WRVU 11.94) performed by Abel Delvalle, Jaime [facility] ??? PRO ARTHRODESIS, ANT INTERBODY,DECOMPRESSION; CERVICAL BELOW C2 Bilateral 03/23/2017 ARTHRODESIS, ANT INTERBODY,DECOMPRESSION; CERVICAL BELOW C2 (WRVU 25) performed by Abel Delvalle MD at [facility] ??? PRO AUTOGRAFT SPINE SURGERY MORSELIZED SEP INCISION Bilateral 03/23/2017 AUTOGRAFT FOR SPINE SURGERY ONLY; MORSELIZED (THROUGH SEPARATE SKIN OR FASCIAL INCISION) (WRVU 2.79) performed by Abel Delvalle MD at [facility] ??? PRO INSERT BIOMCHN DEV INTERVERTEBRAL DSC SPC W/ARTHRD Bilateral 03/23/2017 INSERTION INTERBODY BIOMECH DEV TO INTERVEBRAL DISC SPACE, EA INTERSPACE (WRVU 4.25) performed by Abel Delvalle MD at [facility] ??? PRO OPEN TREATMENT BIMALLEOLAR ANKLE FRACTURE Right 06/27/2019 ORIF BIMALLEOLAR ANKLE FX. (WRVU 10.62) performed by Philippe Martinez MD at [facility] ??? SHOULDER ARTHROSCOPY Left 08/2018 ALLERGIES Allergies Allergen Reactions ??? Allergen Bnx-Arobu-Gzcxi Bee Anaphylaxis Allergic to BEES ??? Cis Free Text Allergy food dyes - Hives( gel type medication- bright red and yellow) ??? Cyclobenzaprine Other (See Comments) hallucinations ??? Nexium [Esomeprazole Magnesium] Other (See Comments) Light headed ??? Norflex [Orphenadrine Citrate] Nausea Only Dizziness MEDICATIONS Current Outpatient Medications: ??? meloxicam (MOBIC) 7.5 [...] mg by mouth daily., Disp: , Rfl: SOCIAL HISTORY Social History Socioeconomic History ??? Marital status: Spouse name: Not on file ??? Number of children: Not on file ??? Years of education: Not on file ??? Highest education level: Not on file Occupational History ??? Not on file Tobacco Use ??? Smoking status: Former Smoker Types: Cigarettes Quit date: 08/12/2009 Years since quittin.3 ??? Smokeless tobacco: Never Used Vaping Use ??? Vaping Use: Never used Substance and Sexual Activity ??? Alcohol use: Yes Comment: Occasional ??? Drug use: No ??? Sexual activity: Not on file Comment: deferred Other Topics Concern ??? Not on file Social History Narrative Left L4-L5 hemilaminotomy, medial facetectomy, foraminotomy with L5-S1 Fely is the 5th of 7 kids Grew up in [facility] Oldest brother is 66, youngest sister is 53 Social Determinants of Health Financial Resource Strain: Not on file Food Insecurity: Not on file Transportation Needs: Not on file Physical Activity: Not on file Housing Stability: Not on file FAMILY HISTORY Family History Problem Relation Age of Onset ??? Hypertension Mother stroke 06/17/17 ??? Hyperlipidemia Mother ??? Osteoporosis Mother ??? Lung Cancer Father 2011 ??? Lung Cancer Brother 65 ??? Breast Cancer Sister 36 ??? Type 2 Diabetes Neg Hx REVIEW OF SYSTEMS General: Denies recent fever, chills, or weight changes.+ for reduced activity tolerance Eyes: Denies recent changes in vision. ENT: Denies recent changes in hearing or dysphagia. Cardiovascular: Denies CP, palpitations, or irregular heart beat. Respiratory: Denies SOB, cough, or recent respiratory infections. GI: Denies N/V/D/C or change in appetite. : Denies changes in urination; frequency, urgency or burning. Musculoskeletal: Denies weakness Reports Numbness, tingling Heme: Denies recent or history of bleeding or clotting disorder. Neuro: Denies recent changes in mentation, memory, or behavior. PHYSICAL EXAM BP 154/80 (BP Location (NBP): Right arm, Patient Position: Sitting, BP Cuff Sizes: Adult (25-34 cm)) Pulse 85 Temp 37.1 ??C (98.7 ??F) (Temporal) Resp 18 Ht 172.7 cm (5' 8) Wt 77.3 kg (170 lb 7.1 oz) Comment: with winter boots on BMI 25.92 kg/m?? Constitutional: Well developed, well nourished, in NAD. Neuro: Mental Status/Cognitive: Awake, alert, answers questions appropriately. Motor: Normal muscle bulk and tone. No pronator drift. Strength 5/5 throughout all muscle groups in all four extremities except 4/5 left hip flexion, 4/5 left knee extension. Sensory: Sensation grossly intact to light touch in all four extremities - decreased in anterior, medial aspect of proximal thigh on left and left wheat, 4- 5 toes Gait: Normal gait, steady, unassisted. Reflexes: Chandler's, Babinski, and clonus negative. DTRs 2+ except 1+ achilles on R, 0 on left. ASSESSMENT & PLAN 61 year old female with history of previous left lumbar discectomy (L45, L5-S1) presents with acute left L1 radicular symptoms that began in late September 2021. She has had partial improvement with oralsteroid burst and a month of PT, however continues to have pins and needles sensation in the left buttock, hip and into the proximal left thigh.The recent MRI shows lumbarization of S1 with last complete disc space considered to be S1-2. There is levoscoliosis with apex at L2-3. Per my review there isan extra foraminal disc extrusion that may impinge the exiting nerve root. On sagittal view there isanterolisthesis of L4 on L5 and L5 on S1 and retrolisthesis of L2 on L3. I reviewed the MRI in detail with Ms. Shaw. On exam she has tenderness and decreased sensation in L1-2 distribution and decreased sensation in left lateral thigh, calf and the lateral aspect of left foot which is long standing. She has full LE strength with exception of 4/5 weakness with left hip flexion. I agree with continuing PT for another month, Meloxicam and gabapentin. She has not had much benefit from lumbar SUE in the past. Given her persistent radicular symptoms she would like to explore surgical options which I think is a reasonable plan at this point. Plan: Continue PT for core and LE conditioning Consult to explore surgical options Eileen Gordillo APRN documented in this encounter Plan of Treatment Upcoming Encounters Date Type Specialty Care Team Description 08/07/2022 TH Visit [facility] Sp[facility] Nahid Carl PsyD (TeleHealth) [facility] [address], [place] [address] (Wo rk) documented as of this encounter Visit Diagnoses Diagnosis Radiculopathy of lumbar region Thoracic or lumbosacral neuritis or radi culitis, unspecified documented in this encounter Care Teams Threshing Machine Operator Relationship Specialty Start Date End Date Savannah Brown APRN PCP - General Family Medicine 08/28/20 [address] [place] [address] documented as of this encounter
--- OUTSIDE RECORDS SUMMARY | 2022-07-25 10:49 | XMS_ITS | Encounter Summary ---
:1960 Author Organization [place] [place] [address] Care Team Providers Name Role Phone Vance Valiente APRN Primary Care Provider Encounter Details Date Type Department Care Team Description 11/30/2019 Hospital Encounter XRay at [facility] Iza Westfall, [facility] WOOTEN QuantiFERON-TB [place], [place] One [facility] test [id number] [place] [phone] [place] [address] Social History Tobacco Use Types Packs/Day Years [...] on file documented as of this encounter Medications at Time of Discharge Medication Sig Dispensed Refills Start Date End Date ibuprofen (ADVIL;MOTRIN) Take 800 mg by 0 400 mg Tablet mouth every 6 hours as needed for Pain. gabapentin (NEURONTIN) Take 2 capsules by 540 capsule 3 02/26 300 mg mouth 3 times CapsuleIndications: daily. Lumbosacral spondylosis without myelopathy, Cervical radiculopathy EPINEPHrine (EPIPEN) 0.3 Inject 0.3 mLs 2 each 1 019 mg/0.3 mL Auto-Injector into the muscle once as needed. cetirizine (ZYRTEC) 10 mg Take 10 mg by 0 Tablet mouth daily. Calcium 500 mg Take 1,000 mg by 0 TabletIndications: mouth daily. Intervertebral disc disorder with radiculopathy of lumbar region cefaDROXil (DURICEF) 500 Take 500 mg by 0 02/08/2020 mg Capsule mouth 2 times daily. documented as of this encounter Plan of Treatment Upcoming Encounters Date Type Specialty Care Team Description 08/07/2022 TH Visit [facility] and Spine Center Nahid Carl PsyD (TeleHealth) [facility] [address] [place], [place] [address] (Wo rk) documented as of this encounter Procedures Procedure Name Priority Date/Time Associated Diagnosis Comme nts XR CHEST PA AND Routine 11/30/2019 11:54 AM Positive Resul ts for this LATERAL EST QuantiFERON-TB Gold procedur e are in test the results section. documented in this encounter Results XR Chest PA & Lateral (Generic) (11/30/2019 11:54 AM EST) Anatomical Region Laterality Modality Chest N/A Digital Radiography Specimen (Source) Anatomical Location Collection Method / Collectio n Time Received Time / Laterality Volume Impressions 11/30/2019 2:22 PM EST No acute cardiopulmonary disease. Thank you for letting us participate in the care of this patient. For questions regarding this report, please contact [facility] number below. ? Narrative 11/30/2019 2:22 PM EST EXAMINATION: XR CHEST PA AND LATERAL (GENERIC) CLINICAL HISTORY: positivve quantiferon asymptomatic TECHNIQUE: PA and lateral views of the chest COMPARISON: August 08, 2019 FINDINGS: The lungs are clear. The mediastinum has normal contour. No p leural effusions are present. The heart is normal in size. A fixation plate at C7-T1 is again seen. There is been no change in appearance of the chest since the prior study. Procedure Note Lio Mason MD - 11/30/2019 EXAMINATION: XR CHEST PA AND LATERAL (GE NERIC) CLINICAL HISTORY: positivve quantiferon asymptomatic TECHNIQUE: PA and lateral views of the chest COMPARISON: August 08, 2019 FINDINGS: The lungs are clear. The mediastinum has normal contour. No p leural effusions are present. The heart is normal in size. A fixation plate at C7-T1 is again seen. There is been no change in appearance of the chest since the prior study. IMPRESSION No acute cardiopulmonary disease. Thank you for letting us participate in the care of this patient. For questions regarding this report, please contact e number below. Iza [place] APRN IMG DX ORDERABLES documented in this encounter Visit Diagnoses Diagnosis Positive QuantiFERON-TB Gold test Nonspecific reaction to cell mediated im munity measurement of gamma interferon antigen response without active tubercul osis documented in this encounter Care Teams Plumbing Instructor Relationship Specialty Start Date End Date Vance Valiente APRN PCP - General Family Medicine 09/15/19 08/27/[address] [facility] [address] [address] documented as of this encounter
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
--- OUTSIDE RECORDS SUMMARY | 2022-07-25 10:49 | XMS_ITS | Encounter Summary ---
:1960 Author Organization [facility] Address [address] [place] [address] Care Team Providers Name Role Phone Vance Valiente APRN Primary Care Provider Reason for Visit Reason Comments Follow Up Surgery WC Lt shoulder scope 018 Encounter Details Date Type Department Care Team Description 02/09/2020 Office Visit Orthopaedics at [facility], s/p Left shoulder Mora Day arthroscopic RTC [address] repair, [place] [address] repair, and SAD: [phone] [place], [place] 09/24/2018; Dr. Bauer [id number] Social History Tobacco Use Types Packs/Day Years [...] on file documented as of this encounter Patient Instructions Patient Lidia Leonard - 02/09/2020 9:30 AM EDT MMI PPI completed today Call workers comp for any concerns of return of symptoms for authorization to follow up. documented in this encounter Progress Notes Christ Bauer MD - 02/09/2020 9:30 AM EDT Chief Complaint Patient presents with ??? Follow Up Surgery WC Lt shoulder scope 09/14/2018 Date of injury: 08/26/16, Workers Compensation Date of Surgery:: 09/24/2018 Surgical Procedure: Left Shoulder arthroscopic rotator cuff repair (supraspinatus), subacromial decompression, and SLAP Type II repair Surgeon: Christ Bauer MD HPI: Fely Shaw is a 59 y.o. female [...] to perform her shoulder exercises very well. ?? She admits that crutch use irritated her shoulder a great deal. She primarily used a knee scooter which decreased the stress on her shoulder. She denies any difficulty with daily use of her shoulder with ADL's and activities around the home. She reports no concerns at this time and thinks she is recovering well. She feels at this point she pretty much is able to do what ever she wants with the shoulder. She was able to return to work with no concerns. Review of Systems: Constitutional: Denies fever, chills, fatigue Cardiovascular: Denies chest pain Respiratory: Denies shortness of breath Gastrointestinal: Denies nausea, vomiting, diarrhea, constipation or abdominal pain Neurovascular: Denies numbness or tingling Musculoskeletal: Admits some shoulder pain mainly while driving. Psychiatric: Mood and affect appropriate Radiating pain: none Physical Exam: General: alert and oriented, no acute distress Cervical Spine: FROM without any pain or reproduction of pain, nontender over the midline. Shoulder Exam Inspection: surgical incisions well healed and benign in appearance, no ecchymosis, no erythema, no post-op swelling Palpation: minimal tenderness to palpation anterior and anterior lateral acromion and within bicipital groove ROM: FF = 145 degrees, ABD = 128 degrees, EXT = 50 degrees, ER = 90 degrees with arm abducted to 90 degrees, IR = 60 degrees with arm abducted to 90 degrees, ADD = 11 degrees, Strength: very good increase in strength and without scapular incorporation to active and resisted forward flexion and abduction, very good interval increase in strength to resisted infraspiantus and subscapularis Orthopedic special testing: Negative Sulcus Sign, negative Empty Can without drop arm, decrease discomfort to Neer and Grove signs Neurovascular: Normal sensation to light touch along radial, median, ulnar, axillary, and lateral antebrachial cutaneous nerve distributions. Radial pulses are 2+ and equal bilaterally with good hand perfusion. Assessment/Plan: Fely Shaw is a 59 y.o. female [...] serratus anterior strengthening and ROM e xercises. She has returned to work with no concerns and is very happy with the outcome of her surgery at this time. It is felt that the patient has reached his Maximum Medical Improvement and is able to undergo a Permanent Impairment Rating at today's visit. Using the [employer] Guides to the Evaluation of Permanent Impairment, 5th Edition, pages 474 - 479, the patient has 2 % permanent impairmentof the upper extremity due to FF, 2 % impairment due to ABD, 0 % impairment due to ER, 2 % impairment due to IR, 1 % impairment due to ADD and 0% impairment due to extension. Combining these values equals 7 % impairment of the upper extremity. Using Table 16-3 on page 439, 7 % impairment of the upper extremity is equal to 4 % impairment of the whole person. MMI/PPI completed today. Workers comp paperwork completed in clinic. The patient was provided with acopy of the report. Follow up PRN for any concerns I Lidia Ivy am acting as scribe [...] Visit [facility] Sp[facility] Nahid Carl PsLuis Enrique (TeleHealth) [facility] [address] [place] [address] (Wo rk) documented as of this encounter Visit Diagnoses Diagnosis s/p Left shoulder arthroscopic RTC repai r, SLAP type II repair, and SAD: 09/24/2018; Dr. Bauer Aftercare following surgery of [facility] documented in this encounter Care Teams Manager Night Relationship Specialty Start Date End Date Vance Valiente APRN PCP - General Family Medicine 09/15/19 08/27/[address] [facility] [address] [place] [address] documented as of this encounter
--- OUTSIDE RECORDS SUMMARY | 2022-07-25 10:49 | XMS_ITS | Encounter Summary ---
:1960 Author Organization [facility] [place] [address] Care Team Providers Name Role Phone Savannah Brown APRN Primary Care Provider Encounter Details Date Type Department Care Team Description 11/06/2021 Telephone Neurosurgery at [facility] Eileen Gordillo, [facility] [place] [address] [facility] [phone] [place], [place] [address] (Wo rk) Social History Tobacco [...] this encounter Miscellaneous Notes Telephone Encounter - Aleyda Dai - 11/06/2021 9:10 AM EST Called pt scheduled 4-6 wk with [facility] per pt req in office visit, scheduled for 12/10 Provided pt with Neurology # to schedule EMG ~~~~~~~~~~~~~~~~~~~~~~~~~~~~~~~ Fely Shaw - 11/05/21 Eileen Gordillo APRN Sent: ThuNovember 06, 2021 ??7:17 AM To: [facility] Sales Product Specialist ?? Follow-up and Dispositions Check-out Note: Lumbar flex/extension XR today Lower extremity EMG Follow up in 4-6 weeks TOV or in person visit documented in this encounter Plan of Treatment Upcoming Encounters Date Type Specialty Care Team Description 08/07/2022 TH Visit [facility] Nahid Carl, Mary (TeleHealth) [facility] [address], [place] [address] (Wo rk) documented as of this encounter Visit Diagnoses Not on filedocumented in this encounter Care Teams Watch Parts Grinder Relationship Specialty Start Date End Date Savannah Brown APRN PCP - General Family Medicine 08/28/[address] [place] [address] documented as of this encounter
--- OUTSIDE RECORDS SUMMARY | 2022-07-25 10:49 | XMS_ITS | Encounter Summary ---
:1960 Author Organization [facility] [place] [address] Care Team Providers Name Role Phone Vance Valiente APRN Primary Care Provider Reason for Visit Reason Comments Other work assessment. Encounter Details Date Type Department Care Team Description 10/27/2019 Office Visit Occupational Medicine Aung Kim , s/p Left shoulder arthroscopic RTC repair, SLAP type II repair, and SAD: 09/24/2018; Dr. Bauer; at [facility] [place] Closed bimalleolar fracture of right ank le with routine healing, subsequent encounter [facility] [id number] CARE [phone] [place], [place] [address] (Wo rk) Social History Tobacco Use Types [...] Sign Reading Time Taken Comments Blood Pressure 132/52 10/27/2019 9:01 AM EST Pulse 96 10/27/2019 9:01 AM EST Temperature 36.2 ??C (97.2 ??F) 10/27/2019 9:01 AM EST Respiratory Rate 18 10/27/2019 9:01 AM EST Oxygen Saturation 100% 10/27/2019 9:01 AM EST Inhaled Oxygen Concentration - - Weight - - Height - - Body Mass Index - - documented in this encounter Patient Instructions Patient InstructionsAung Kim DO - 10/27/2019 9:00 AM EST 1. s/p Left shoulder arthroscopic RTC repair, SLAP type II repair, and SAD: 09/24/2018; Dr. Bauer 2. 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 Aung Kim DO documented in this encounter Plan of Treatment Upcoming Encounters Date Type Specialty Care Team Description 08/07/2022 TH Visit [facility] Nahid Carl PsyD (TeleHealth) [facility] [address], [place] [address] (Wo rk) documented as of this encounter Visit Diagnoses Diagnosis s/p Left shoulder arthroscopic RTC repai r, SLAP type II repair, and SAD: 09/24/2018; Dr. Bauer Aftercare following surgery of the muscu loskeletal system, [facility] Closed bimalleolar fracture of right ank le with routine healing, subsequent encounter documented in this encounter Care Teams Bee Keeper Relationship Specialty Start Date End Date Vance Valiente, DRILL PUNCH OPERATOR PCP - General Family Medicine 09/15/19 08/27/[address] [facility] [address] [place] [address] documented as of this encounter
--- OUTSIDE RECORDS SUMMARY | 2022-07-25 10:49 | XMS_ITS | Encounter Summary ---
:1960 Author Organization [facility] Address [address] [place] [address] Care Team Providers Name Role Phone Savannah Brown APRN Primary Care Provider Reason for Referral Consultation (Routine) - Closed Specialty Diagnoses / Procedures Referred By Contact Refer red To Contact Pain and Spine Center Diagnoses Chronic left-sided low back pain with left-sided sciatica Pain - Chronic low back & left leg pain/ ?SCS/ no new imaging *FVE w/ Crissy Herrera MD Vrooman, Bruce M, MD [facility] [address] NE[place] [address] Fax: Referral ID Status Reason Start Date Expiration Date Visits V isits Requested Authorized [id number] Closed Consult, 05/16/2022 05/16/2023 1 1 Test & Treat Encounter Details Date Type Department Care Team Description 05/16/2022 Office Visit Neurosurgery at [facility] Crissy Aguirre, Mehreen left-sided [facility] low back pain with Drive [facility] [place] [address] (Primary Dx) [phone] NEUROSURGERY [place] [address] Social History Tobacco Use Types Packs/Day Years Used Date Former Smoker Cigarettes Quit: 08/12/20 Smokeless Tobacco: Never Used Alcohol Use Standard [...] Sign Reading Time Taken Comments Blood Pressure 136/70 05/16/2022 10:00 AM EDT Pulse 85 05/16/2022 10:00 AM EDT Temperature 36.4 ??C (97.5 ??F) 05/16/2022 10:00 AM EDT Respiratory Rate 18 05/16/2022 10:00 AM EDT Oxygen Saturation 99% 05/16/2022 10:00 AM EDT Inhaled Oxygen Concentration - - Weight 76.9 kg (169 lb 9.6 oz) 05/16/2022 10:00 AM EDT Height 172.7 cm (5' 8) 05/16/2022 10:00 AM EDT Body Mass Index 25.79 05/16/2022 10:00 AM EDT documented in this encounter Progress Notes Crissy Aguirre MD - 05/16/2022 10:00 AM EDT It was a pleasure to see Fely Shaw in follow-up today. Ms. Shaw is a 61 y.o. woman whom I am following for left leg pain and numbness s/p prior left [id number]. She is returning to discuss next steps after completion of a ultrasound-guided nerve block for possible meralgia paresthetica, and some therapy. She relates that her symptoms remain essentially unchanged. She did get the nerve block which resulted in more pain, rather than less. She is now recovered from this, but does not feel like it addressed her symptoms. As for therapy, she is been doing pool therapy all summer. It gives her some relief, but is not overall changed her back pain or leg symptoms. We again reviewed the MRI of her lumbar spine from September 2021. This demonstrates continued stenosis of the left L5-S1 foramen related to recurrent disc versus scar tissue. At this point, we have ruled out meralgia paresthetica, and this is likely due to recurrent versus persistent lumbar radiculopathy. I discussed with her that her options of either spinal cord stimulation for failed back surgery, or repeat exploration of the L5-S1 foramen and further decompression of the nerve root. This carries some risk of further destabilizing the spine potentially. Additionally, she can continue symptomatic treatment with the addition of Cymbalta to her current pain regimen of gabapentin. Ms. Shaw would like to explore spinal cord stimulation, and I will place a referral to the pain clinic to expedite her work-up. Repeat laminectomy and foraminotomy is an option if spinal cord stimulation is not successful. In the interim, she knows to reach out to me if she should have any additionalconcerns or new neurologic symptoms. Plan; 1. Referral to pain clinic for consideration of spinal cord stimulation. 2. Consider cymbalta -- will f/u with PCP documented in this encounter Plan of Treatment Upcoming Encounters Date Type Specialty Care Team Description 08/07/2022 TH Visit [facility] Sp[facility] Nahid Carl PsyD (TeleHOLLR) [facility] [address] [place], [place] [address] (Wo rk) Scheduled Referrals Name Type Priority Associated Order Schedule Diagnoses Referral to Pain Outpatient Referral Routine Chronic left-side d Ordered: Management low back pain with 2 left-sided sciatica documented as of this encounter Visit Diagnoses Diagnosis Chronic left-sided low back pain with le ft-sided sciatica - Primary documented in this encounter Care Teams Garage Mechanic Relationship Specialty Start Date End Date Savannah Brown APRN PCP - General Family Medicine 08/28/[address] [place] [address] documented as of this encounter
--- OUTSIDE RECORDS SUMMARY | 2022-07-25 10:49 | XMS_ITS | Encounter Summary ---
:1960 Author Organization [facility] Address [facility] [place] [address] Care Team Providers Name Role Phone Savannah Brown APRN Primary Care Provider Reason for Visit Auth/Cert Specialty Diagnoses / Procedures Referred By Contact Refer red To Contact Diagnoses Left lateral cutaneous neuralgia Krissy Nation MD [facility] Procedures PRO INJECTION ANES AGENT &/OR STEROID OTHER PERIPHERAL NERVE/BRANCH NERVE BLOCK, OTHER PERIPHERAL NERVE OR BRANCH (WRVU 0.75) [facility] [place] [address] Referral ID Status Reason Start Date Expiration Date Visits Requ ested Visits Authorized [id number] 1 1 Encounter Details Date Type Department Care Team Description 05/09/2022 Hospital Encounter Pain Management Jason Nation [facility] Krissy Galindo MD [facility] [place] [address] [place], [place] [phone] (Work) [phone] Social History Tobacco Use Types Packs/Day Years [...] Sign Reading Time Taken Comments Blood Pressure 153/63 05/09/2022 2:58 PM EDT Pulse 87 05/09/2022 2:58 PM EDT Temperature - - Respiratory Rate - - Oxygen Saturation 98% 05/09/2022 3:30 PM EDT Inhaled Oxygen Concentration - - Weight 77.1 kg (170 lb) 05/09/2022 2:58 PM EDT Height 172.7 cm (5' 8) 05/09/2022 2:58 PM EDT Body Mass Index 25.85 05/09/2022 2:58 PM EDT documented in this encounter Discharge Instructions Discharge InstructionsBrandon Moss - 05/09/2022 3:09 PM EDT Pain Management Center Discharge Instructions: You were seen today by Surgeon(s): Krissy Nation MD Alvarez, Armando, MD The following was performed: Procedure(s) (LRB): NERVE BLOCK, OTHER PERIPHERAL NERVE OR BRANCH (WRVU 0.75) (Left) It is normal that the injection site will be sore for up to 48 hours. [x] You may also experience mild stiffness in the joint near the injection site. You may resume your normal activities: tomorrow. You may shower today. DO NOT tub bathe, use whirlpools, hot tubs or pool therapy for 2 days. Remove Band-Aid(s) later today/tomorrow. Do not drive until tomorrow. Use caution walking/climbing stairs as you may be unsteady on your feet. You may use your usual medications, including pain medications, as directed, unless otherwise instructed. You may use an ice pack as needed for the first 24 hours, on for 20 minutes then off for 20 minutes.Do not apply heat today. Attempt to empty your bladder 4-6 hours after your procedure. [ ] If you have diabetes, monitor your blood sugars frequently. If your blood sugar increases and isof concern, contact your Primary Care Provider. You received the following medications: Medications Given During Procedure Date/Time Order Dose Route Action 05/09/2022 1525 BUpivacaine (pf) (Marcaine) (2.5 mg/mL) 0.25% injection 5 mL Intramuscular Given 05/09/2022 1526 methylPREDNISolone acetate (DEPO-Medrol) (40 mg/mL) injection 40 mg Intramuscular Given During regular business hours, please phone the Pain Management Center at with any questions or if the following or other troubling symptoms develop: 1) Prolonged dizziness or weakness (more than 1 day). 2) Localized swelling, redness or drainage at the injection site(s). 3) Temperature of 101 degrees that lasts for more than 4 hours. After 5 PM or on weekends, call and ask for Pain Clinic provider on-call. If you are unable to reach the Pain Management Center and have a complication, please call your Primary Care Provider or proceed to your local emergency department. Brandon Moss Special instructions Pain Management Center Post -Procedure Pain Log Patient: Fely Shaw [id number] It is important for you to keep track of your pain after your procedure that took place 05/09/2022. This information will help your Provider determine the next steps for how to help reduce your pain. Today you had a procedure for pain in your leg. Your pain level before the procedure in this area was 5/10. Your pain level immediately after your procedure was 3/10. Time Pain Score Comments 1 hour 2 hours 3 hours 4 hours The Pain Clinic Mechanical Engineering Lecturer Nurse will call you within a week of your procedure to ask about your response to the procedure and help with the next steps. If you need to reach the Mechanical Engineering Lecturer you can call: [phone]. documented in this encounter Medications at Time of Discharge Medication Sig Dispensed Refills Start Date End Date meloxicam (MOBIC) 7.5 mg Take 7.5 mg by 0 022 Tablet mouth 2 times daily as needed for Pain. acetaminophen (Tylenol) Take by mouth. 0 04/26/20 21 500 mg Tablet rosuvastatin (Crestor) 5 Take 5 mg by mouth 0 05/2021 mg Tablet daily. ibuprofen (ADVIL;MOTRIN) Take 800 mg by 0 400 mg Tablet mouth every 6 hours as needed for Pain. gabapentin (NEURONTIN) 300 Take 2 capsules by 540 capsule 3 03/15/2019 mg CapsuleIndications: mouth 3 times Lumbosacral spondylosis daily. without myelopathy, Cervical radiculopathy EPINEPHrine (EPIPEN) 0.3 Inject 0.3 mLs into 2 each 1 mg/0.3 mL Auto-Injector the muscle once as needed. cetirizine (ZYRTEC) 10 mg Take 10 mg by mouth 0 Tablet daily. Calcium 500 mg Take 1,000 mg by 0 TabletIndications: mouth daily. Intervertebral disc disorder with radiculopathy of lumbar region documented as of this encounter H&P Notes Driss Becerra MD - 05/09/2022 2:56 PM EDT Patient Name: Fely Shaw Patient Age: 61 y.o. Birthdate: 1960 Admit date: 05/09/2022 Attending Physician: Krissy Nation MD PREPROCEDURE HISTORY AND PHYSICAL Date of Visit: May 09, 2022 Chief Complaint: Left leg pain/numbness HPI: Subjective Fely Shaw is a 61 y.o. female who presents today for: Procedure: LEFT US guided Lateral Femoral Cutaneous Nerve Block for diagnostic and therapeutic value. The patient denies any significant changes in her symptoms since she was last seen in clinic on 04/04/22. The history is obtained from the patient, and I have reviewed medical records provided by the referring physician and located in the electronic medical record to fill in gaps in the patient's recollection of events, treatments and outcomes. LOCATION: Left leg pain/numbness PAIN LEVEL AT REST 5/10 PAST MEDICAL HISTORY: Past Medical History: Diagnosis Date ??? Atypical nevi 10/08/2017 L gluteal fold, noticed at this years annual-she does not recall seeing in the past there, nor doesher spouse according to her-referred to derm It is 1.5 cm high and 2 cm wide, flat, symmetrical, sanchez/brown ??? Chronic pain 2012 LEFT SIDE PAIN FROM PREVIOUSE BACK SURGERY ??? Lumbosacral spondylosis without myelopathy 06/23/2014 PAST SURGICAL HISTORY: Past Surgical History: Procedure Laterality Date ??? BACK SURGERY 2014 see neuro notes ??? CERVICAL SPINE SURGERY 2017 ??? LAMINOTOMY Left 2013 APD ??? PRO ANTERIOR INSTRUMENTATION 2-3 VERTEBRAL SEGMENTS Bilateral 03/23/2017 ANT. SPINAL INSTRUMENTATION, 2-3 VERTEBRA, SEGMENTED (WRVU 11.94) performed by [facility] MA[facility] ??? PRO ARTHRODESIS, ANT INTERBODY,DECOMPRESSION; CERVICAL BELOW C2 Bilateral 03/23/2017 ARTHRODESIS, ANT INTERBODY,DECOMPRESSION; CERVICAL BELOW C2 (WRVU 25) performed by Abel Delvalle MD at [facility] MAIN OR ??? PRO AUTOGRAFT SPINE SURGERY MORSELIZED SEP INCISION Bilateral 03/23/2017 AUTOGRAFT FOR SPINE SURGERY ONLY; MORSELIZED (THROUGH SEPARATE SKIN OR FASCIAL INCISION) (WRVU 2.79) performed by Abel Delvalle MD at [facility] MAIN OR ??? PRO INSERT BIOMCHN DEV INTERVERTEBRAL DSC SPC W/ARTHRD Bilateral 03/23/2017 INSERTION INTERBODY BIOMECH DEV TO INTERVEBRAL DISC SPACE, EA INTERSPACE (WRVU 4.25) performed by Abel Delvalle MD at [facility] MAIN OR ??? PRO OPEN TREATMENT BIMALLEOLAR ANKLE FRACTURE Right 06/27/2019 ORIF BIMALLEOLAR ANKLE FX. (WRVU 10.62) performed by Philippe Martinez MD at [facility] MAIN OR ??? SHOULDER ARTHROSCOPY Left 08/2018 ALLERGIES: Allergen aty-zdkpw-owzeb bee, Cis free text allergy, Cyclobenzaprine, Nexium [esomeprazole magnesium], and Norflex [orphenadrine citrate] MEDICATIONS: Medications 05/09/22 6328 Medication Sig Taking? meloxicam (MOBIC) 7.5 mg Tablet Yes rosuvastatin (Crestor) 5 mg Tablet Yes gabapentin (NEURONTIN) 300 mg Capsule Take 2 capsules by mouth 3 times daily. Yes cetirizine (ZYRTEC) 10 mg Tablet Take 10 mg by mouth daily. Yes Calcium 500 mg Tablet Take 1,000 mg by mouth daily. Yes acetaminophen (Tylenol) 500 mg Tablet Take by mouth. ibuprofen (ADVIL;MOTRIN) 400 mg Tablet Take 800 mg by mouth every 6 hours as needed for Pain. EPINEPHrine (EPIPEN) 0.3 mg/0.3 mL Auto-Injector Inject 0.3 mLs into the muscle once as needed. FAMILY HISTORY: Family History Problem Relation Age of Onset ??? Hypertension Mother stroke 06/17/17 ??? Hyperlipidemia Mother ??? Osteoporosis Mother ??? Lung Cancer Father 2011 ??? Lung Cancer Brother 65 ??? Breast Cancer Sister 36 ??? Type 2 Diabetes Neg Hx SOCIAL HISTORY: Social History Socioeconomic History ??? Marital status: Spouse name: Not on file ??? Number of children: Not on file ??? Years of education: Not on file ??? Highest education level: Not on file Occupational History ??? Not on file Tobacco Use ??? Smoking status: Former Smoker Types: Cigarettes Quit date: 08/12/2009 Years since quittin.7 ??? Smokeless tobacco: Never Used Vaping Use ??? Vaping Use: Never used Substance and Sexual Activity ??? Alcohol use: Yes Comment: Occasional ??? Drug use: No ??? Sexual activity: Not on file Comment: deferred Other Topics Concern ??? Not on file Social History Narrative Left L4-L5 hemilaminotomy, medial facetectomy, foraminotomy with L5-S1 Fely is the 5th of 7 kids Grew up in [facility] Oldest brother is 66, youngest sister is 53 Social Determinants of Health Financial Resource Strain: Not on file Food Insecurity: Not on file Transportation Needs: Not on file Physical Activity: Not on file Housing Stability: Not on file ROS: Patient denies any recent illness, infection, or rash. PHYSICAL EXAM: BP 153/63 (Patient Position: Sitting) Pulse 87 Ht 172.7 cm (5' 8) Wt 77.1 kg (170 lb) SpO2 100% BMI 25.85 kg/m?? GEN: Patient in no acute distress RESP: Patient breathing comfortably on room air SKIN: No rash, skin breakdown, or infection noted near intended procedure site. PSYCH: Patient alert and oriented RADIOLOGIC DATA: N/A LABS/DX RESULTS: N/A ASSESSMENT: 1. Lateral femoral cutaneous neuropathy, left PLAN: There are no contraindications to the planned procedure. Proceed with planned procedure . Driss Becerra MD, ANGELINA Pain Medicine Fellow [address] [phone] / [facility] documented in this encounter Miscellaneous Notes Op Note - Krissy Nation MD - 05/09/2022 3:25 PM EDT Pain Management Operative Note Patient Name: Fely Shaw : [id number] MR#: [id number] Case Date: 05/09/2022 Surgeon: Surgeon(s) and Role: * Krissy Nation MD - Primary * Saeid Gusman MD - Fellow Present on Admission: ??? Meralgia paraesthetica, left Postoperative diagnosis:??? Meralgia paraesthetica, left Procedure(s) (LRB): NERVE BLOCK, OTHER PERIPHERAL NERVE OR BRANCH (WRVU 0.75) (Left) ULTRASOUND-GUIDED Left LATERAL FEMORAL CUTANEOUS NERVE BLOCK PROCEDURE NOTE The patient complains of left anterolateral thigh pain. Dx: meralgia paresthetica Ms. Shaw was greeted by the nurse who verified patients name and . Ms. Shaw was interviewed and the medical record reviewed. There were no medical, pharmacologic, radiographic, or other structural contraindications to attempting the lateral femoral cutaneous block. Risks and potential side effects were discussed. The potential benefits of the procedure were reviewedwith Ms. Shaw and her voiced concerns were addressed. After obtaining informed consent, the patientconsent form was signed. Standard time-out procedure was performed. Please note that this procedure has been proven to be beneficial in the majority of patients with meralgia paresthetica. Guillermo MG, Lucita SA, Lamar SS, Amarjit . Meralgia paresthetica: diagnosis and treatment. J Am AcadOrthop Surg 2001;9:336 Ms. Shaw was placed in the supine position on the procedure table. The skin entry point for entering/approaching a point 3 cm distal and then 3 cm medial to the ASIS was marked. The skin was thoroughly prepared with chlorhexadine preparation. Using a linear ultrasound probe, the lateral femoral cutaneus nerve, femoral artery, femoral nerve and femoral vein were identified. The insertion area was thoroughly anesthetized with 1% Lidocaine using a 1.5 25G skin needle. Next, I entered the skin using alateral to medial approach with a 3.5 20 G ultrasound needle until the tip of the need was in closeproximity to the lateral femoral cutaneus nerve. Aspiration revealed no blood or other fluid. Next, I injected a solution of 5 cc of 0.25% Bupivacaine mixed with 1 cc of DepoMedrol (40 mg/cc) without resistance. This was watched with ultrasound in real time. Hydrodisection was noticed around the lateral femoral cutaneous nerve. Follow up plans and appointments were discussed with Ms. Shaw. Post procedure instruction was given. Having met discharge criteria he was discharged from the Pain Management Center. Preprocedure pain score 5/10 post procedure pain score 3/10. Numbness in expected distribution. I have seen and examined the patient and reviewed the fellow's above history and I agree with the details as written. I was the attending physician supervising the fellow in the above care and I was present with the fellow for the entire procedure. Krissy Nation MD [facility] Assisant Professor of Anesthesiology [facility] [address] [phone] / [facility] CC: Crissy Aguirre MD [facility] [place] [address] documented in this encounter Plan of Treatment Upcoming Encounters Date Type Specialty Care Team Description 08/07/2022 TH Visit [facility] Nahid Carl PsyD (TeleTrenDemon) [facility] [place], [place] [address] (Wo rk) documented as of this encounter Procedures Procedure Name Priority Date/Time Associated Diagnosis Comme nts NERVE BLOCK, OTHER 05/09/2022 3:12 PM EDT Lateral femo ral PERIPHERAL NERVE OR cutaneous neuropathy, BRANCH (WRVU 0.75) left NERVE BLOCK, OTHER Routine 05/09/2022 2:53 PM EDT Lateral femo ral PERIPHERAL NERVE OR cutaneous neuropathy, BRANCH left documented in this encounter Visit Diagnoses Diagnosis Lateral femoral cutaneous neuropathy, le ft Meralgia paraesthetica, left documented in this encounter Active and Recently Administered Medications Times are shown in EDT. PRN Medication Order 05/07/2022 05/08/2022 05/09/2022 BUpivacaine (pf) (Marcaine) (2.5 mg/mL) 0.25% injection (CANCELE D) 1525 (Given - Provider: Saeid Gusman MD - Comment: left lateral femoral cutaneous nerve inj.) ONCE PRN, Starting on Thu05/09/22 at 152 5, Until Thu05/09/22 at 1739, Intra- Operative (Intra-Procedure), Routine methylPREDNISolone acetate (DEPO-Medrol) (40 mg/mL) injection (C ANCELED) 1526 (Given - Provider: Saeid Gusman MD - Comment: left lateral femoral cutaneous nerve inj.) ONCE PRN, Starting on Thu05/09/22 at 152 6, Until Thu05/09/22 at 1739, Intra- Operative (Intra-Procedure), Routine documented in this encounter Care Teams Railroad Car Repair Supervisor Relationship Specialty Start Date End Date Savannah Brown APRN PCP - General Family Medicine 08/28/[address] [place] [address] documented as of this encounter
--- OUTSIDE RECORDS SUMMARY | 2022-07-25 10:49 | XMS_ITS | Encounter Summary ---
:1960 Author Organization [facility] [place] [address] Care Team Providers Name Role Phone Savannah Brown APRN Primary Care Provider Reason for Visit Diagnostic Test (Routine) - Closed Specialty Diagnoses / Procedures Referred By Contact Refer red To Contact Neurology Diagnoses Acute left-sided low back pain with left-sided sciatica Degenerative disc disease, lumbar Eileen Gordillo APRN [facility] Neurology [address] [facility] [place] [address] [place] [phone] Fax: Referral ID Status Reason Start Date Expiration Date Visits V isits Requested Authorized [id number] Closed Test Only 11/06/2021 11/06/2022 1 1 Encounter Details Date Type Department Care Team Description 11/21/2021 Procedure visit Neurology at [facility] [place] Acute left-sided low back pa in with left-sided sciatica; [facility] MD [place] Degenerative disc disease, lumbar [address] [place], [place] [phone] NEUROLOGY DEPT. [phone] [place], [place] [address] Social History Tobacco Use Types Packs/Day Years [...] documented as of this encounter Progress Notes Donato Miranda MD - 11/21/2021 1:30 PM EST Images from the original note were not included. Neurology EMG Only Clinic Note - 11/21/2021 Patient name: Fely Shaw Date of : 1960 PCP: Savannah Brown APRN Clinic Attending: Taryn Woods MD I have seen Fely Shaw, patient of Savannah Brown APRN, for evaluation of acute left-sided low back pain with left-sided sciatica in the EMG lab for EMG/NCS performed today. She was referred by neurosurgery JE Luther on 11/06/21. Please see her note from 11/05/21 for details of the patient's clinical history and presentation. She had prior EMG of the left lower extremity in 2013, included at the bottom of this note for reference. The patient is not on any blood-thinning medications. Relevant Physical Examination Findings: Sensory: Normal sensation to pinprick in the lower extremities. Vibration is normal at the right toeand absent at the left toe, appearing the MTP joint and normalizing at the mid wheat. Motor: Normal tone and muscle bulk in the lower extremities. There is full strength throughout the lower extremities aside from 4/5 weakness in left hip flexion, knee flexion and extension. Reflexes are intact and symmetric at the knees and absent at ankles bilaterally, with downgoing toes. The patient is ambulatory without support. Electrodiagnostic testing: For details, please see scanned documents, to follow. The pertinent findings are summarized here: Sensory Nerve Conductions: Left superficial peroneal: normal amplitude, velocity of 49.8 m/s Left sural: normal amplitude, velocity of 50.4 m/s Motor Nerve Conductions: Left peroneal (EDB): latency of 2.9 ms, normal amplitude and velocity Left tibial (AH): normal latency and amplitude F waves: normal left peroneal and tibial EMG studies: Left tibialis anterior: normal motor units, CRD heard Left gastrocnemius: normal motor units Left vastus lateralis: normal motor units Left iliopsoas: normal motor units Right tibialis anterior: normal motor units Right gastrocnemius: normal motor units Impression: These electrodiagnostic studies are abnormal due to a complex repetitive discharge heard in the lefttibialis anterior, which is a nonspecific marker of irritability. There is no evidence of left lowerextremity peripheral neuropathy. No active denervation was seen. Clinical correlation: These findings are consistent with a chronic L4-L5 radiculopathy. No significant change compared to prior studies from 2014. EMG/NCS are normal in a pure sensory radiculopathy, so that cannot be excluded based on these studies alone. The patient will follow up with her referring provider as previously scheduled. Donato Miranda MD Clinical Neurophysiology Fellow Pager: [phone] Neurology Staff Note I have reviewed the above fellows's history during the visit and I agree with the details as written. My physical examination confirms the fellow's findings. The assessment and plan were formulated in discussion with me at the time of the visit and I agree with them as documented. I participated in the EDX studies. [place] MD CC: Savannah Brown APRN, Eileen Gordillo documented in this encounter Plan of Treatment Upcoming Encounters Date Type Specialty Care Team Description 08/07/2022 TH Visit [facility] Nahid Carl PsyD (TeleHealth) [facility] [address] [place], [place] [address] (Wo rk) Scheduled Referrals Name Type Priority Associated Diagnoses Order S chedule Referral to Outpatient Referral Routine Acute left-sided low Ordered: Neurology back pain with 11/06/2021 left-sided sciat ica Degenerative disc disease, lumbar documented as of this encounter Visit Diagnoses Diagnosis Acute left-sided low back pain with left -sided sciatica Degenerative disc disease, lumbar Degeneration of lumbar or lumbosacral in tervertebral disc documented in this encounter Care Teams Patient Care Relationship Specialty Start Date End Date Savannah Brown APRN PCP - General Family Medicine 08/28/20 [address] [place] [address] documented as of this encounter
--- OUTSIDE RECORDS SUMMARY | 2022-07-25 10:49 | XMS_ITS | Encounter Summary ---
:1960 Author Organization [facility] Address [address] [place] [address] Care Team Providers Name Role Phone Vance Valiente APRN Primary Care Provider Reason for Visit Reason Comments Ankle Pain Encounter Details Date Type Department Care Team Description 11/30/2019 Office Visit Orthopaedics at [facility], Closed bimalleolar Strickland Day [place] fracture of right 10 [address] [place] [address] healing, subsequent [phone] [place], [place] [address] encounter Social History Tobacco Use Types Packs/Day Years [...] documented as of this encounter Progress Notes Qasim Amaya, PA - 11/30/2019 10:00 AM EST Orthopaedic Surgery Post-Operative Clinic Note Surgery: R Ankle ORIF Date of surgery: 06/27/19 The patient follows up 5 months status post the above surgery. The patient was last seen on the clinic on October 25, 2019. She subsequently went on a trip to [place]. The patient reports that her pain and ability to walk is much improved compared to her last visit. She continues to perform her home exercises. She is no longer wearing a brace. She continues to have asmall scab over the incision site but much improved from her last visit. The patient is scheduled tosee infectious disease tomorrow at [facility]. She denies any associated redness or drainage or increased warmth of the foot and ankle. To review after she was seen on 07/11/2019 she went to [facility] and unfortunately during her tripshe developed a deep lateral infection of the ankle. She was admitted to [facility] in [place], [place]. She underwent an I+D with retention of the hardware, a PICC was placed, and she will be on Ancef and Rifampin for 7 weeks. She reports that her post infection recovery was complicated by a retained stitch. The stitch became buried and once it was removed she had dehiscence of the wound. The patient was last seen by infectious disease in [facility] in September and feel that her wound was healing well. She was placed on Cefadroxil 500 mg bid supposed to be on it for 3-6 months. The patient denies fevers, chills, or night sweats. Pain has been well controlled. Objective: Awake, alert, no acute distress. RLE: 5/5 with APF/ADF/EHL/FHL 2+ dp pulse Minimally tender to palpation over the distal fibula. Over the lateral incision there is a eschar tissue present length of 2 cm. The eschar tissue was removed and there was a well granulated base present, no signs of any visible hardware present. No drainage or purulence present. No surrounding erythema. Imaging: XR of the right ankle performed today show no change in alignment of the hardware and fractures which appear to be well healed and remain well-aligned. Assessment/plan: Fely Shaw is a 59 y.o. female who follows up status post ORIF of a bimalleolar fracture performed by Dr. Martinez on June 27, 2019. The patient is 5 months from the time of her surgery and she is much improved in terms of her level of activity and pain compared to her last visit. The patient unfortunately had a developed a deep lateral infection of the ankle. She was admitted [facility] in [place], [place]. She underwent an I+D with retention of the hardware, a PICC was placed, and she was on Ancef and Rifampin for 7 weeks. Currently on Cefadroxil 500 BID for 3-6 months.The patient will follow-up with ID tomorrow for further recommendations regarding antibiotic management. We discussed we could consider removal of hardware if she had difficulty completely healing her incision or if recommended by ID. Continue working on your home physical therapy exercises focusing on lower extremity strengthening, gait, balance, proprioception and return to functional activities. Recommended that the patient progress activities to tolerance. Discussed with patient indications for prompt return or to call the clinic if they have any questions, otherwise they will follow-up as depending on ID recommendations and if her incision were not to heal and with their PCP as scheduled. The patient was seen and the plan was formulated in conjunction with Dr. Martinez. documented in this encounter Plan of Treatment Upcoming Encounters Date Type Specialty Care Team Description 08/07/2022 TH Visit [facility] Nahid Carl PsyD (TeleHealth) [facility] [place] [address] (Wo rk) documented as of this encounter Visit Diagnoses Diagnosis Closed bimalleolar fracture of right ank le with routine healing, subsequent encounter documented in this encounter Care Teams Financial Underwriter Relationship Specialty Start Date End Date Vance Valiente APRN PCP - General Family Medicine 09/15/19 08/27/20 [facility] [address] [place] [address] documented as of this encounter
--- OUTSIDE RECORDS SUMMARY | 2022-07-25 10:49 | XMS_ITS | Encounter Summary ---
:1960 Author Organization [facility] Address [facility] [place] [address] Care Team Providers Name Role Phone Savannah Brown APRN Primary Care Provider Reason for Visit Auth/Cert Specialty Diagnoses / Procedures Referred By Contact Refer red To Contact Diagnoses Left lateral cutaneous neuralgia Krissy Nation MD [facility] Procedures PRO INJECTION ANES AGENT &/OR STEROID OTHER PERIPHERAL NERVE/BRANCH NERVE BLOCK, OTHER PERIPHERAL NERVE OR BRANCH (WRVU 0.75) [facility] [place] [address] Referral ID Status Reason Start Date Expiration Date Visits Requ ested Visits Authorized [id number] 1 1 Encounter Details Date Type Department Care Team Description 05/09/2022 Surgery Pain Management Krissy Shaver ERVE BLOCK, OTHER [facility] MD Mateo PERIPHERAL NERVE OR Hospital [facility] BRANCH (WRVU 0.75) [facility] [place] [address] [place] [address] [phone] Social History Tobacco Use Types Packs/Day Years [...] in this encounter Discharge Instructions Discharge InstructionsBrandon lacey Denice - 05/09/2022 3:09 PM EDT Pain Management [...] Post -Procedure Pain Log Patient: Fely Shaw [id number] It is important for you to keep [...] 3 hours 4 hours [facility] [employer] Shift Lead Nurse will call you within a week of your procedure to ask about your response to the procedure and help with the next steps. If you need to reach the Fast Food Shift Lead you can call: [phone]. documented in this encounter Medications at Time [...] (WRVU 11.94) performed by Abel Delvalle MDat [facility] MA[facility] OR ??? PRO ARTHRODESIS, ANT INTERBODY,DECOMPRESSION; CERVICAL BELOW C2 Bilateral 03/23/2017 ARTHRODESIS, ANT INTERBODY,DECOMPRESSION; CERVICAL BELOW C2 (WRVU 25) performed by Abel Delvalle MD at [facility] MAIN OR ??? PRO AUTOGRAFT SPINE SURGERY MORSELIZED SEP INCISION Bilateral 03/23/2017 AUTOGRAFT FOR SPINE SURGERY ONLY; MORSELIZED (THROUGH SEPARATE SKIN OR FASCIAL INCISION) (WRVU 2.79) performed by Abel Delvalle MD at [facility] MAIN OR ??? PRO INSERT BIOMCHN DEV INTERVERTEBRAL DSC SPC W/ARTHRD Bilateral 03/23/2017 INSERTION INTERBODY BIOMECH DEV TO INTERVEBRAL DISC SPACE, EA INTERSPACE (WRVU 4.25) performed by Abel Delvalle MD at [facility] MAIN OR ??? PRO OPEN TREATMENT BIMALLEOLAR ANKLE FRACTURE Right 06/27/2019 ORIF BIMALLEOLAR ANKLE FX. (WRVU 10.62) performed by Philippe Martinez MD at [facility] MAIN OR ??? SHOULDER ARTHROSCOPY Left 08/2018 ALLERGIES: Allergen cfy-cujpf-stljb bee, Cis free text allergy, Cyclobenzaprine, Nexium [esomeprazole magnesium], and Norflex [orphenadrine citrate] MEDICATIONS: Medications 05/09/22 7988 Medication Sig Taking? meloxicam (MOBIC) 7.5 mg [...] 5th of 7 kids Grew up in [facility] Oldest brother is 66, youngest sister is [...] Driss Becerra MD, ANGELINA Pain Medicine Fellow [address] [address] / [facility] documented in this encounter Miscellaneous Notes Op Note - Krissy Nation MD - 05/09/2022 3:25 PM EDT Pain Management Operative Note Patient Name: Fely Shaw : [id number] MR#: [id number] Case Date: 05/09/2022 Surgeon: Surgeon(s) and Role: [...] Pain Management Center Assisant Professor of Anesthesiology [facility] [address] [address] / [facility] CC: Crissy Aguirre MD [facility] [place] [address] documented in this encounter Plan of Treatment Upcoming Encounters Date Type Specialty Care Team Description 08/07/2022 TH Visit [facility] Nahid Carl PsyD (TeleHealth) [facility] [address] [place] [address] (Wo rk) documented as of this [...] cutaneous neuropathy, le ft Meralgia paraesthetica, left Lateral femoral cutaneous neuropathy, le ft documented in this encounter Administered Medications Inactive Administered Medications - up to 3 most recent administrations Medication Order MAR Action Action Date Dose Rate Site BUpivacaine (pf) (Marcaine) (2.5 Given 05/09/2022 3:25 PM EDT 5 mLs mg/mL) 0.25% injection ONCE PRN, Starting on Thu05/09/22 at 1525, Until Thu05/09/22 at 1739, Intra-Operative (Intra-Procedure), Routine methylPREDNISolone acetate (DEPO-Medrol) (40 Given 3:26 PM EDT 40 mg mg/mL) injection ONCE PRN, Starting on Thu05/09/22 at 1526, Until Thu05/09/22 at 1739, Intra-Operative (Intra-Procedure), Routine documented in this encounter Active and Recently [...] Routine documented in this encounter Care Teams Photographic Lithographer Relationship Specialty Start Date End Date Savannah Brown APRN PCP - General Family Medicine 08/28/[address] [place] [address] documented as of this encounter
--- OUTSIDE RECORDS SUMMARY | 2022-07-25 10:49 | XMS_ITS | Encounter Summary ---
:1960 Author Organization [facility] [address] Care Team Providers Name Role Phone Savannah Brown APRN Primary Care Provider Encounter Details Date Type Department Care Team Description 05/16/2022 Telephone Neurosurgery at [facility] Crissy Aguirre MD [facility] [address] NEUROSURGERY [phone] [place], [place] [address] (Wo rk) Social History Tobacco [...] Miscellaneous Notes Telephone Encounter - Aleyda Dai Gianna - 05/16/2022 12:38 PM EDT NS prn ----- Message from Crissy Aguirre MD sent at 05/16/2022 12:31 PM EDT ----- Plan; 1. Referral to pain clinic for consideration of spinal cord stimulation. 2. Consider cymbalta -- will f/u with PCP Thank you, Sera documented in this encounter Plan of Treatment Upcoming Encounters Date Type Specialty Care Team Description 08/07/2022 TH Visit [facility] Nahid Carl PsyD (TeleHealth) [facility] [address] [place], [place] [address] (Wo rk) documented as of this encounter Visit Diagnoses Not on filedocumented in this encounter Care Teams Dyeing Machine Feeder Relationship Specialty Start Date End Date Savannah Brown APRN PCP - General Family Medicine 08/28/[address] [place] [address] documented as of this encounter
--- OUTSIDE RECORDS SUMMARY | 2022-07-25 10:49 | XMS_ITS | Encounter Summary ---
:1960 Author Organization [facility] [address] Care Team Providers Name Role Phone Vance Valiente APRN Primary Care Provider Encounter Details Date Type Department Care Team Description 10/28/2019 Orders Only Occupational Medicine at [facility] Westfall APRN [facility] [place] [address] [place] [address] [phone] Social History Tobacco Use Types Packs/Day Years [...] and Spine Center Nahid Carl PsyD (TeleHealth) [facility] [address] [place] [address] (Wo rk) documented as of this encounter Procedures Procedure Name Priority Date/Time Associated Diagnosis Comme nts HEPATITIS B SURFACE Routine 10/28/2019 10:45 AM R esults for this ANTIBODY EST procedure are i n the results section. documented in this encounter Results Hepatitis B Surface Antibody (10/28/2019 10:45 AM EST) P athologist Signature HepB Surface 97.3 IU/L [facility] Ab Quant [facility] Comment: HepB Surface Ab Quant: Unvaccinated: < 8.5 IU/L Vaccinated: > 11.5 IU/L HepB Surface Ab Positive [facility] Comment: Patient is considered to be immune to HB V infection. Expected Results: Vaccinated: Positive Unvaccinated: Negative Specimen Anatomical Collection Method Collection Time Receive d Time (Source) Location / / Volume Laterality Blood specimen Venous Draw / 10/28/2019 10:45 10/28/19 20 (specimen) Unknown AM EST 11:11 AM EST Resulting Agency Comment Spec In Lab Iza Westfall APRN IMMUNOLOGY ORDERABLES Performing Organization Address City/State/[place] [address] documented in this encounter Visit Diagnoses Not on filedocumented in this encounter Care Teams Waiter/Waitress Third Class Relationship Specialty Start Date End Date Vance Valiente APRN PCP - General Family Medicine 09/15/19 08/27/[address] [facility] [address] [place] [address] documented as of this encounter
--- OUTSIDE RECORDS SUMMARY | 2022-07-25 10:49 | XMS_ITS | Encounter Summary ---
:1960 Author Organization [facility] [place] [address] Care Team Providers Name Role Phone Vance Valiente APRN Primary Care Provider Reason for Visit Reason Comments Follow-up [place] W/C L shoulder scope dos 09/24/18 Encounter Details Date Type Department Care Team Description 10/25/2019 Office Visit Orthopaedics at [facility] Contreras Elena, s/p Luci ft shoulder Mora Day BAM Hughes arthroscopic RTC [address] repair, [place] [address] [address] [address] repair, and SAD: [phone] [place], [place] [address] 09/24/2018; Dr. Bauer Social History Tobacco Use Types Packs/Day Years [...] Sign Reading Time Taken Comments Blood Pressure 138/87 10/25/2019 8:46 AM EST Pulse 82 10/25/2019 8:46 AM EST Temperature 36.6 ??C (97.8 ??F) 10/25/2019 8:46 AM EST Respiratory Rate - - Oxygen Saturation - - Inhaled Oxygen Concentration - - Weight - - Height - - Body Mass Index - - documented in this encounter Progress Notes Kari Camara PA - 10/25/2019 9:00 AM EST PATIENT NAME: Fely Shaw AGE: 59 y.o. MR#: [id number] DATE OF VISIT: 10/25/2019 DATE OF INJURY/ONSET: 08/26/16, Workers Compensation DATE OF SURGICAL PROCEDURE: 09/24/2018 SURGICAL PROCEDURE PERFORMED: Left Shoulder arthroscopic rotator cuff repair (supraspinatus), subacromial decompression, and SLAP Type II repair SURGEON: Christ Bauer MD CHIEF COMPLAINT: Post-op visit s/p shoulder arthroscopy HISTORY OF PRESENT ILLNESS Fely Shaw is a 59 y.o. female comes into clinic today for follow-up after undergoing an arthroscopic shoulder surgery. She suffered an ankle fracture that required an ORIF on 06/27/2019 and then had a wound infection that required I&D on 08/06/2019. Due to the injury and surgeries, she was on crutches for several months. She admits she has not been able to perform her shoulder exercises very well. She admits the crutches irritated her shoulder. She primarily used a knee scooter which decreased the stress on her shoulder. She denies any difficulty with daily use of her shoulder with ADL's and activities around the home. Pain Medications: Ibuprofen 800 mg TID primarily for the ankle pain. She continues use of [id number] mg TID for chronic back pain. Physical [...] Neurovascular: Denies numbness or tingling Musculoskeletal: Admits occasional shoulder pain, nearly full range of motion, improving muscular strength, denies swelling or discoloration Psychiatric: Mood and affect appropriate PHYSICAL EXAM: General: alert and oriented, no acute distress Cervical Spine: FROM without any pain or reproduction of pain, nontender over the midline. Shoulder Exam Inspection: surgical incisions well healed and benign in appearance, no active ecchymosis, no erythema, no post-op swelling Palpation: mild tenderness to palpation of subacromial borders, biceps, and lateral deltoid ROM: active forward flexion to 155 degrees, abduction to 135 degrees, external rotation to 80 degrees, internal rotation to T7 Strength: mild scapular incorporation to forward flexion and abduction, 4/5 ER, 5/5 IR, 4/5 forward flexion, 4/5 abduction, 4+/5 supraspinatus, 4-/5 infraspinatus, 5/5 subscapularis Orthopedic special testing: Negative Sulcus Sign, mild discomfort to Empty Can, mild weakness to Speeds, mildly positive Neer and Grove, mild discomfort to [place]bri[place] Neurovascular: Normal sensation to light touch along [...] a SSI. On examination, her pain has resolved since the previous office visit and she has maintained her motion, but her strength overall has decreased. Encouraged Fely to return to her shoulder strengthening and scapular stabilization exercises. She will call the office if she would like a referral to return to physical therapy. Use caution with pushing, pulling, twisting, lifting, reaching, or overhead activities. As strength continues to improve, advance level of activity to tolerance. Use of Ibuprofen 600 mg every 8 hours with food as needed for pain and inflammation secondary to therecent exacerbation. Plan to follow-up in 3 months. Please call the office if you have any questions or concerns prior toyour next follow-up visit. Workers Comp documentation completed in the office today. She plans to return to work in the [employer] with modifications. documented in this encounter Plan of Treatment Upcoming Encounters Date Type Specialty Care Team Description 08/07/2022 TH Visit [facility] Nahid Carl PsLuis Enrique (TeleHealth) [facility] [address] [place] [address] (Wo rk) documented as of this encounter Visit Diagnoses Diagnosis s/p Left shoulder arthroscopic RTC repai r, SLAP type II repair, and SAD: 09/24/2018; Dr. Bauer Aftercare following surgery of the [facility], [facility] documented in this encounter Care Teams Nut Sifter Relationship Specialty Start Date End Date Vance Valiente APRN PCP - General Family Medicine 09/15/19 08/27/[address] [facility] [address] [place] [address] documented as of this encounter
--- OUTSIDE RECORDS SUMMARY | 2022-07-25 10:49 | XMS_ITS | Encounter Summary ---
:1960 Author Organization [facility] Address [facility] [address] [place] [address] Care Team Providers Name Role Phone Savannah Brown APRN Primary Care Provider Reason for Referral Consultation (Routine) - Closed Specialty Diagnoses / Procedures Referred By Contact Refer red To Contact [facility] Diagnoses Acute left-sided low back pain with left-sided sciatica Crissy Aguirre MD [facility] MD ELLIS Galindo [facility] [place] [address] [place] [address] Fax: Referral ID Status Reason Start Date Expiration Date Visits V isits Requested Authorized [id number] Closed Consult, 02/14/2022 02/14/2023 1 1 Test & Treat Encounter Details Date Type Department Care Team Description 02/14/2022 Office Visit Neurosurgery at [facility] Crissy Aguirre Acute left-sided [facility] back pain with [facility] [place] [address] CENTER (Primary Dx) [phone] NEUROSURGERY [place], [place] [address] Social History Tobacco Use Types [...] Sign Reading Time Taken Comments Blood Pressure 140/70 02/14/2022 10:11 AM EDT Pulse 84 02/14/2022 10:11 AM EDT Temperature 36.9 ??C (98.4 ??F) 02/14/2022 10:11 AM EDT Respiratory Rate 18 02/14/2022 10:11 AM EDT Oxygen Saturation 99% 02/14/2022 10:11 AM EDT Inhaled Oxygen Concentration - - Weight 77.5 kg (170 lb 12.8 oz) 02/14/2022 10:11 AM EDT Height 172.7 cm (5' 8) 02/14/2022 10:11 AM EDT Body Mass Index 25.97 02/14/2022 10:11 AM EDT documented in this encounter Progress Notes Crissy Aguirre MD - 02/14/2022 10:20 AM EDT Neurosurgery Consultation 02/14/2022 Fely Garcia Colin [id number] CC: Left leg pain and weakness HPI: It was a pleasure to meet Fely Shaw at the request of Savannah Brown regarding lumbar stenosis and left leg pain and weakness. Ms. Shaw is a 61 y.o. woman who presents with a chief concern of back pain and left leg weakness and numbness. She relates that approximately 10 years ago, she had onset of left sciatica, which was initially treated with conservative measures, but eventually became severe to the point where she was unable to move. She underwent back surgery with Dr. Cheung, who told her after surgery that shehad significant arterial and nerve compression. She woke up after surgery with left leg numbness which was new. She has been living with this and managing well with neuronsanjana. She was in her usual state of health until September of this year, when she suddenly developed severe left buttock pain which actually triggered vomiting. She was worked up with an MRI of the lumbar spine, which demonstrated degenerative changes and moderate left foraminal stenosis. She has since undergo ne PT, started steroids and meloxicam, and her symptoms improved over time. She does not that in thepast few weeks there is more leg pain and numbness in the groin. Currently, her symptoms are exacerbated by walking. 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 She also relates significant back pain. The left leg feels heavy, without clearly defined involved muscle groups. She denies new bowel or bladder symptoms. PMH/PSH: Past Medical History: Diagnosis Date ??? Atypical [...] (WRVU 11.94) performed by Abel [facility]valle MD[facility] MA[facility] ??? PRO ARTHRODESIS, ANT INTERBODY,DECOMPRESSION; CERVICAL BELOW C2 Bilateral 03/23/2017 ARTHRODESIS, ANT INTERBODY,DECOMPRESSION; CERVICAL BELOW C2 (WRVU 25) performed by Abel Delvalle MD at [facility] MAIN OR ??? PRO AUTOGRAFT SPINE SURGERY MORSELIZED SEP INCISION Bilateral 03/23/2017 AUTOGRAFT FOR SPINE SURGERY ONLY; MORSELIZED (THROUGH SEPARATE SKIN OR FASCIAL INCISION) (WRVU 2.79) performed by Abel Delvalle MD at [facility] MAIN OR ??? PRO INSERT BIOMCHN DEV INTERVERTEBRAL DSC SPC W/ARTHRD Bilateral 03/23/2017 INSERTION INTERBODY BIOMECH DEV TO INTERVEBRAL DISC SPACE, EA INTERSPACE (WRVU 4.25) performed by Abel Delvalle MD at [facility] MAIN OR ??? PRO OPEN TREATMENT BIMALLEOLAR ANKLE FRACTURE Right 06/27/2019 ORIF BIMALLEOLAR ANKLE FX. (WRVU 10.62) performed by Philippe Martinez MD at [facility] MAIN OR ??? SHOULDER ARTHROSCOPY Left 08/2018 Medications: Current Outpatient Medications on File Prior to Visit Medication Sig Dispense Refill ??? meloxicam (MOBIC) 7.5 mg Tablet ??? acetaminophen (Tylenol) 500 mg Tablet Take by mouth. ??? rosuvastatin (Crestor) 5 mg Tablet ??? ibuprofen (ADVIL;MOTRIN) 400 mg Tablet Take 800 mg by mouth every 6 hours as needed for Pain. ??? gabapentin (NEURONTIN) 300 mg Capsule Take 2 capsules by mouth 3 times daily. 540 capsule 3 ??? EPINEPHrine (EPIPEN) 0.3 mg/0.3 mL Auto-Injector Inject 0.3 mLs into the muscle once as needed. 2 each 1 ??? cetirizine (ZYRTEC) 10 mg Tablet Take 10 mg by mouth daily. ??? Calcium 500 mg Tablet Take 1,000 mg by mouth daily. No current facility-administered medications on file prior to visit. Allergies: Allergies Allergen Reactions ??? Allergen Ykw-Uftho-Dsotk Bee Anaphylaxis Allergic to BEES ??? Cis Free Text Allergy food dyes - Hives( gel type medication- bright red and yellow) ??? Cyclobenzaprine Other (See Comments) hallucinations ??? Nexium [Esomeprazole Magnesium] Other (See Comments) Light headed ??? Norflex [Orphenadrine Citrate] Nausea Only Dizziness Family Hx: Family History Problem Relation Age of Onset ??? Hypertension Mother stroke 06/17/17 ??? Hyperlipidemia Mother ??? Osteoporosis Mother ??? Lung Cancer Father 2011 ??? Lung Cancer Brother 65 ??? Breast Cancer Sister 36 ??? Type 2 Diabetes Neg Hx Social Hx: Nonsmoker Drinks alcohol occasionally Denies illicits Lives with , 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 HEENT: No recent visual changes / hearing changes. Cardiovascular: No chest pain / palpitations. Pulmonary: No shortness of breath / cough GI: No abdominal pain / vomiting / change in bowel pattern : No dysuria / urinary retention / urinary incontinence. Physical Exam: Vital Signs: BP 140/70 (BP Location (NBP): Right arm, Patient Position: Sitting, BP Cuff Sizes: Adult (25-34 cm)) Pulse 84 Temp 36.9 ??C (98.4 ??F) (Temporal) Resp 18 Ht 172.7 cm (5' 8) Wt 77.5 kg (170 lb 12.8 oz) SpO2 99% BMI 25.97 kg/m?? General: NAD. HEENT: Atraumatic, normocephalic Neuro: Mental Status/Cognitive: Awake, alert, oriented x3 Speech: Fluent, appropriate Motor: No pronator drift. Tone: Normal Power: Segment Muscle Action Right Left C5 Biceps Elbow flexion 5 5 C6 Extensor carpi radialis Wrist extension 5 5 C7 Triceps Elbow extension 5 5 C8, T1 Hand intrinsics Grasp 5 5 L2 Iliopsoas Hip flexion 5 4+ L3 Quadriceps Knee extension 5 4+ L4 Tibialis anterior Dorsiflexion 5 4+ L5 Extensor hallucis Great toe extension 5 4+ S1 Gastrocnemius Plantar flexion 5 5 Reflexes: 2+ and symmetric throughout, negative straight leg raise on the left Sensation in the extremities: Light touch: Intact x 4 Cerebellar exam: Dysmetria: None Dysdiadochokinesia Gait: Normal, able to do tandem gait Labs: None Imaging: I reviewed an MRI lumbar spine without contrast obtained 10/25/2021. This demonstrates post-operativechanges of left hemilaminectomy, and small bilateral perineural cysts. There are extensive degenerative changes with mild scoliotic deformity but no severe central stenosis. There is moderate foraminalstenosis of L4-5 on the left and L5-S1 on the left. Assessment and Plan: Ms. Shaw has chronic low back pain and left leg pain, with a more acute L5 radiculopathy . She is responding to conservative measures at the moment, but we discussed that re-do diskectomy could be considered if she were to worsen clinically. I offered a referral for SUE but she has deferred this for now. I am surprised by the extent of her generalized weakness in the left leg, but I can not see a clear explanation for this on her imaging or EMG. I think that PT will be most helpful here and have cleared her to do any kind of therapy, including traction. Lastly, I am recommending a targeted nerve block for her groin pain and numbness which is new. She may be experiencing meralgia paresthetica or ilioinguinal neuropathy, and an ultrasound-guided block could be both therapeutic and diagnostic. I have placed a referral to the pain clinic for this today. I would like to see her in follow-up after her nerve block. Plan: 1. Referral to pain clinical for LFCNT, ilioinguinal nerve blocks 2. Continue PT 3. RTC 3 months Thank you for allowing me to participate in the care of this darrell patient. documented in this encounter Plan of Treatment Upcoming Encounters Date Type Specialty Care Team Description 08/07/2022 TH Visit [facility] Nahid Carl PsyD (TeleHealth) [facility] [address] [place], [place] [address] (Wo rk) Scheduled Referrals Name Type Priority Associated Order Schedule Diagnoses Referral to Pain Outpatient Referral Routine Acute left-sided Ordered: Management low back pain with 2 left-sided sciatica documented as of this encounter Visit Diagnoses Diagnosis Acute left-sided low back pain with left -sided sciatica - Primary documented in this encounter Care Teams Care Navigator Relationship Specialty Start Date End Date Savannah Brown APRN PCP - General Family Medicine 08/28/[address] [place] [address] documented as of this encounter
--- OUTSIDE RECORDS SUMMARY | 2022-07-25 10:49 | XMS_ITS | Encounter Summary ---
:1960 Author Organization [place] [address] Care Team Providers Name Role Phone Vance Valiente APRN Primary Care Provider Reason for Referral Consultation (Routine) - Closed Specialty Diagnoses / Procedures Referred By Contact Refer red To Contact Infectious Diseases Diagnoses Aftercare following surgery for injury and trauma Infection of deep incisional surgical site after procedure, subsequent encounter Status post open reduction with internal fixation (ORIF) of fracture of ankle Qasim Amaya, [facility] [address] [place] [address] [place] [address] Referral ID Status Reason Start Date Expiration Date Visits V isits Requested Authorized [id number] Closed Specialty 10/25/2019 10/24/2020 1 1 Service Requested Reason for Visit Reason Comments Follow-up ankle fracture Encounter Details Date Type Department Care Team Description 10/25/2019 Office Visit Orthopaedics at Qasim [facility], Aftercare following surgery for injury and trauma; Strickland [place] Infection of deep incisional surgical si te after procedure, subsequent encounter; 10 10 Status post open reduction w ith internal fixation (ORIF) [place] [address] [address] [phone] [place] [address] Social History Tobacco Use Types Packs/Day [...] as of this encounter Patient Instructions Patient InstructionsQasim Amaya PA - 10/25/2019 10:00 AM EST Assessment/plan: Fely Shaw is a 59 y.o. female who follows up status post ORIF of a bimalleolar fracture performed by Dr. Martinez on June 27, 2019. The patient is 4 months from the time of her surgery. The patientunfortunately had a developed a deep lateral infection of the ankle. She was admitted to [facility] in [place], [place]. She underwent an I+D with retention of the hardware, a PICC was placed, and she was on Ancef and Rifampin for 7 weeks. Currently on Cefadroxil 500 BID for 3-6 months. She will start use of iodosorb dressings and change every other day. She is leaving this Thursday for [place] and will return in November. We have asked her to keep a close eye on her incision and send us pictures for updates. Will refer her to ID for further recommendations regarding antibiotic management We tried to place her in a lace up ankle brace for stability, but caused too much friction over her incision, recommended use of a high top hiking shoe if able. Continue working on your home physical therapy exercises focusing on lower extremity strengthening, gait, balance, proprioception and return to functional activities. Recommended that the patient progress activities to tolerance. Discussed with patient indications for prompt return or to call the clinic if they have any questions, otherwise they will follow-up after she returns from her trip and with their PCP as scheduled. documented in this encounter Progress Notes Qasim Amaya PA - 10/25/2019 10:00 AM EST Orthopaedic Surgery Post-Operative Clinic Note Surgery: R Ankle ORIF Date of surgery: 06/27/19 The patient follows up 4 months status post the above surgery. The patient was last seen on the clinic on July 11, [address] Martinez. She subsequently went on a trip to [place]. Unfortunately during her trip she developed a deep lateral infection of the ankle. She was admitted to [facility] in [place], [place]. She underwent an I+D with retention of the hardware, a PICC was placed, and she will be on Ancef and Rifampin for 7 weeks. She reports that her post infection recovery was complicated by a retained stitch. The stitch became buried and once it was removed she had dehiscence of the wound. The area now has a large scab over the site, without redness, drainage or increased warmth. The patient was last seen by infectious disease in [facility] in September and feel that her wound was healing well. She was placed on Cefadroxil 500 mg bid supposed to be on it for 3-6 months, ID in [place] asked her to establish care with infectious disease here. She continues to have pain over the ankle, with pain and aching last night. She is seeing Micheal Kc PT. She was essentially NWB until 2 weeks now using a cane and full weightbearing. The patient denies fevers, chills, or night sweats. Pain has been well controlled. Objective: Awake, alert, no acute distress. RLE: APF/ADF/EHL/FHL intact 2+ dp pulse Over the lateral incision there is a thick eschar tissue present length of 2.5 cm. The eschar tissuewas removed and there was a well granulated [...] on June 27, 2019. The patient is 4 months from the time of her surgery. The patientunfortunately had a developed a deep lateral infection of the ankle. She was admitted to [facility] in [place], [place]. She underwent an I+D with retention of the hardware, a PICC was placed, and she was on Ancef and Rifampin for 7 weeks. Currently on Cefadroxil 500 BID for 3-6 months. The patient presents today with thick eschar tissue present over the lateral incision, this was removed today and there was a well granulated well-healing bed of tissue present, no visible hardware seen. She will start use of iodosorb dressings and change every other day, covering this with a Mepilex dressing. The patient was given instructions on use and proper wound care. She is leaving this Thursday for [place] and will return in November. We have asked her to keep a close eye on her incision and send us pictures for updates. The patient understands that if she has any issues while she is away she will return to our infectious disease providers in [place]. Will refer her to ID for further recommendations regarding antibiotic management We tried to place her in a lace up ankle brace for stability, but caused too much friction over her incision, recommended use of a high top hiking shoe if able. Continue working on your home physical therapy exercises focusing on lower extremity strengthening, gait, balance, proprioception and return to functional activities. Recommended that the patient progress activities to tolerance. Discussed with patient indications for prompt return or to call the clinic if they have any questions, otherwise they will follow-up after she returns from her trip to [place] and with their PCP as scheduled. Pili Larios LNA - 10/25/2019 10:00 AM EST REVIEW OF SYMPTOMS: Constitutional: Denies fever, chills, fatigue Cardiovascular: Denies chest pain Respiratory: Denies shortness of breath Gastrointestinal: Denies nausea, vomiting, diarrhea, constipation or abdominal pain Neurovascular: Denies numbness or tingling Musculoskeletal: Admits right ankle pain, swelling, limitation of range of motion Psychiatric: Mood and affect appropriate documented in this encounter Plan of Treatment Upcoming Encounters Date Type Specialty Care Team Description 08/07/2022 TH Visit Pain and Spine Center Nahid Carl PsyD (TeleHealth) [facility] [address] [place], [place] [address] (Wo rk) Scheduled Referrals Name Type Priority Associated Order Schedule Diagnoses Referral to Infectious Outpatient Referral Routine Aftercare f ollowing Ordered: Disease and surgery for injury 0 International Health and trauma Infection of deep incisional surgical site after procedure, subsequent encounter Status post open reduction with internal fixation (ORIF) of fracture of ankle documented as of this encounter Results XR Ankle Min 3 [...] following surgery for injury a nd trauma Infection of deep incisional surgical si te after procedure, subsequent encounter Status post open reduction with internal fixation (ORIF) of fracture of ankle Aftercare following surgery for injury a nd trauma documented in this encounter Care Teams Scale Manager Relationship Specialty Start Date End Date Vance Valiente, PAINTER CHASSIS PCP - General Family Medicine 09/15/19 08/27/20 [facility] [place] [address] documented as of this encounter
--- OUTSIDE RECORDS SUMMARY | 2022-07-25 10:50 | XMS_ITS | Encounter Summary ---
:1960 [place] [address] Care Team Providers Name Role Phone Susie López JE Primary Care Provider Encounter Details Date Type Department Care Team Description 06/24/2019 Telephone Orthopaedics at Philippe Cheney MD [facility] DR Memo [address] [place] [address] [place] [address] [phone] (Wo rk) Social History Tobacco Use Types [...] this encounter Miscellaneous Notes Telephone Encounter - Christ Trinidad Jr., RN - 06/24/2019 1:36 PM EDT I called the patient nearly black at the request of Dr. Martinez. The patient was seen today in the office for an ankle fracture, and it was decided that surgery was needed. The patient was sent for a CT scan prior to confirm if surgery was in fact needed. Dr. Martinez asked me to call Fely and let her know that the CT confirmed that surgery is necessary. I told the patient this information, the patient was appreciative of the information and confirmation that surgical intervention is necessary. Patient will plan to report to the hospital Thursday morning forsurgery to fix her broken ankle. documented in this encounter Plan of Treatment Upcoming Encounters Date Type Specialty Care Team Description 08/07/2022 TH Visit Pain and Spine Center Nahid Carl PsyD (TeleHealth) [facility] [address] [place] [address] (Wo rk) documented as of this encounter Visit Diagnoses Not on filedocumented in this encounter Care Teams Body Recall Instructor Relationship Specialty Start Date End Date Susie López APRN PCP - General 05/21/15 06/30/19 documented as of this encounter
--- OUTSIDE RECORDS SUMMARY | 2022-07-25 10:50 | XMS_ITS | Encounter Summary ---
:1960 Author Organization [facility] Address [place] [address] Care Team Providers Name Role Phone Vance Valiente APRN Primary Care Provider Reason for Visit Reason Onset Date Comments Other 08/05/2019 Notification of admi ssion Encounter Details Date Type Department Care Team Description 08/05/2019 Telephone Orthopaedics at [facility] Haley Leong Other (Notification of [facility] A, admissions evaluator ) [place] [address] Social History Tobacco Use Types Packs/Day [...] this encounter Miscellaneous Notes Telephone Encounter - Haley Leong RN - 08/05/2019 1:45 PM EST FYI-Internal Medicine Resident Marla Gudino [phone] called to advise surgeon that they have admitted patient with surgical site infection at [facility] in [place]. Patient was well untilyesterday when she developed a fever/purlent drainage/and pain. Thanks. documented in this encounter Plan of Treatment Upcoming Encounters Date Type Specialty Care Team Description 08/07/2022 TH Visit Pain and Spine Center Nahid Carl PsyD (TeleHealth) [facility] [address] [place] [address] (Wo rk) documented as of this encounter Visit Diagnoses Not on filedocumented in this encounter Care Teams Glass Technologist Relationship Specialty Start Date End Date Vance Valiente APRN PCP - General Family Medicine 09/15/19 08/27/20 [facility] [address] [place] [address] documented as of this encounter
--- OUTSIDE RECORDS SUMMARY | 2022-07-25 10:50 | XMS_ITS | Encounter Summary ---
:1960 Author Organization [facility] [place] [address] Care Team Providers Name Role Phone Rene, Susie JE Primary Care Provider Reason for Visit Auth/Cert Specialty Diagnoses / Procedures Referred By Contact Refer red To Contact Diagnoses Pain in right ankle and joints of right foot right ankle fracture Procedures PRO OPEN TREATMENT BIMALLEOLAR ANKLE FRACTURE ORIF BIMALLEOLAR ANKLE FX. (WRVU 10.62) MODIFIER BREAUX & NEPHEW - CASS LOC VLP - LOWER EXTREMITY Referral ID Status Reason Start Date Expiration Date Visits Requ ested Visits Authorized [id number] 1 1 Encounter Details Date Type Department Care Team Description 06/27/2019 Hospital Encounter Post Acute Care Philippe Martinez, Anniet ercare following Unit at [facility] MD surgery for injury [facility] trauma [address] [facility] JERICHO Restrepo [facility] [id number] SURGERY [phone] [place] [address] Social History Tobacco Use Types Packs/Day Years [...] Sign Reading Time Taken Comments Blood Pressure 139/82 06/27/2019 4:15 PM EDT Pulse 80 06/27/2019 2:46 PM EDT Temperature 36.5 ??C (97.7 ??F) 06/27/2019 2:46 PM EDT Respiratory Rate 13 06/27/2019 4:15 PM EDT Oxygen Saturation 98% 06/27/2019 4:15 PM EDT Inhaled Oxygen Concentration - - Weight 72.6 kg (160 lb) 06/27/2019 11:46 AM EDT Height 170.2 cm (5' 7) 06/27/2019 11:46 AM EDT Body Mass Index 25.06 06/27/2019 11:46 AM EDT documented in this encounter Discharge Instructions Discharge InstructionsJovana Kerr RN - 06/27/2019 3:43 PM EDT You received a dose of IV Toradol in the recovery room at 3:30 this afternoon. Do not take any Ibuprofen (advil/motrin) until after 9:30 pm tonight. Patient InstructionsQasim Amaya PA - 06/26/2019 8:39 AM EDT Precautions: ??? Your post-op bandages and posterior splint or cast should remain intact and will be changed at your first post-operative office visit. ??? You should remain non-weight bearing with use of crutches unless otherwise instructed by the surgeon or physician human resources assistant. o Non-weight bearing status may continue for 4-6 weeks after surgery. ??? Recommend frequent elevation and ice to surgical site, keep bandages dry. ??? Use of pain medications and muscle relaxants can have a sedating effect; please use caution as this may increase your risk of a fall. Restrictions: ??? Do not drive a car. The ability to drive will be decided by your physician, physician human resources assistant and physical therapist. ??? To be able to return to driving the following is recommended: o No longer taking pain medications. o No longer wearing a cast, splint, or walking boot. o Full return of strength and motion. o Clearance is usually between 4-6 weeks after surgery. - If the right lower extremity was NOT the surgical side, you may return to driving once no longer taking pain medications. ??? Do not return to work until cleared by your physician or physician human resources assistant. o Once you return, you may need modified duty initially. Home Care Instructions: ??? Good personal hygiene and hand washing is recommended at home as they are critical to preventingillness and infection. If soap and water are unavailable, you can use an alcohol-based hand paper sales representative to clean your hands or exposed fingers. ??? Your surgical incision will have steri-strips or nylon sutures. o Steri-strips should fall off on their own. If they have not fallen off they can be gently removed 14-21 days after your surgery. o Nylon sutures will need to be removed at 14 days post-op. You will be scheduled in the orthopaedicoffice for suture removal. ??? Silverlon band aids will be applied to your incision site at your first post-op visit. o The band aids should stay on for 5 days. After 5 days they can be removed. o Once the Silverlon dressing is removed you often do not need additional dressings to cover your incision unless otherwise instructed by your provider. Home Care Instructions (continued): ??? You may shower after surgery but must keep the post-op bandages clean and dry by using a waterproof bag. o You may shower without covering the incision after 7 days post-op. o No bathing, swimming, or soaking the incision site. ??? Do not apply ointments, lotions, or creams to your incision sites. ANTICOAGULATION THERAPY: You will be prescribed Aspirin to thin your blood and prevent a blood clot after surgery. Please check your prescription and refer to the instructions below. [x]Aspirin Therapy: o Aspirin 81 mg twice daily for 4 weeks o After 4 weeks you may return to you resume your usual dosing if you were taking Aspirin prior to surgery o You will not need additional lab draws while taking Aspirin. o Continue your usual diet. Diet: ??? Continue your usual diet. Fresh fruits, vegetables, and foods containing fiber and iron are recommended. ??? Drink plenty of fluids especially water. Comfort: ??? Surgical site soreness can be expected. ??? Frequent use of ice is recommended. ??? Take pain medications as prescribed. Lessen the use of pain medication as pain decreases. ??? You may take Ibuprofen and Tylenol (Acetaminophen) for mild to moderate pain. o Ibuprofen 800 mg may be taken every 8 hours with food. o Tylenol 650 mg may be taken every 8 hours. Do not take more than 3000 mg of Tylenol in a 24-hour period of time. o Alternating the use of Ibuprofen and Tylenol throughout the day is often helpful. - Please avoid the use of these bvbr-azf-opssgsj medications if you have an allergy or sensitivity to them. ??? Your throat may be a little sore for the first 2-3 days following surgery; throat lozenges may be helpful. ??? Pain medications can cause you to become constipated. o Stool softeners or mild laxatives are encouraged and may be needed for the duration of pain medication use. o Tdqd-xkz-iknaywf options: Colace 100 mg twice daily or MiraLAX 17 grams mixed in 8 ounces of waterat bedtime. Comfort (continued): ??? Call the orthopaedic office to discuss medication refills if needed. The prescriptions will needto be picked up at the office or could be mailed to you with several days??? notice. ??? Pain medication refills are provided for a maximum of 6 weeks after surgery based on your level of post-operative pain. Call Your Physician IF: (these could be signs of an infection) ??? You have a fever over 101.5 degrees Fahrenheit. ??? You have increased pain, tenderness, or redness in your calf or leg. ??? You have increased swelling of your thigh, calf, ankle, or foot. ??? You develop redness, swelling, or drainage from your incision. ??? You have increased surgical site pain with both activity and rest. CALL 911 IF: ??? You have shortness of breath or chest pain with breathing. A follow-up appointment will be arranged for you about 10 days after your ankle/foot surgery for a bandage change and then again 3-4 weeks after surgery. If nylon sutures were used to close your incision, you will have a 14 day follow-up appointment for suture removal. We are very pleased [facility] and we look forward to seeing you in the office soon. If you have any questions please call the office, . 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 documented as of this encounter Progress Notes Jovana Kerr RN - 06/27/2019 4:43 PM EDT All PACU criteria easily met. Pt and significant other stated understanding of discharge instructions. Written copy provided for discharge. Pt discharged in wheelchair to car with ice packs, boot, crutches. See Doc Flowsheets for full details. documented in this encounter H&P Notes Philippe Martinez MD - 06/27/2019 12:29 PM EDT The patient's history and physical exam have been reviewed and completed. There has been no intervalchange from that of the pre-operative history and physical exam done within the last 30 days. documented in this encounter Miscellaneous Notes Op Note - Philippe Martinez MD - 06/27/2019 2:46 PM EDT [facility] Operative Note [address] [address] Patient Name: Fely Shaw : [id number] MR#: [id number] Case Date: 06/27/2019 Case Scheduled Time: 1315 Surgeon: Surgeon(s) and Role: * Philippe Martinez MD - Primary * Qasim Amaya PA - Physician Quality Assurance Specialist Preoperative diagnosis: right bimalleolar ankle fracture Postoperative diagnosis: right ankle fracture Procedure(s) (LRB): ORIF BIMALLEOLAR ANKLE FX. (WRVU 10.62) (Right) MODIFIER BREAUX & NEPHEW - CASS LOC VLP - LOWER EXTREMITY (Right) Anesthesia: General Estimated Blood Loss: * No values recorded between 06/27/2019 1:14 PM and 06/27/2019 2:31 PM * Specimens removed during surgery: None Drains: * No LDAs found * Surgical Closure: Primary Closure - skin incision is completely closed without any wires, padmini, drains or other devices Disposition: awakened from anesthesia, extubated and taken to the recovery room in a stable condition, having suffered no apparent untoward event. Condition: doing well without problems Complications: None (Please see the Surgical Encounter Summary for any Implant and Specimen details pertinent to this patient.) Findings: Soft bone. Surgical Indications: Patient is a 59-year-old female who [facility] fracture after a paragliding incident. She was found to have a bimalleolar ankle fracture. She also was found to have a navicular fracture of the right foot. We had a discussion of risks and benefits. I had a long discussion with the patient and her regarding the risks of surgery. These included but were not limited to the following: Bleeding, infection, damage to nerves and vessels, need for further surgery, blood clots, pulmonary embolism, deep venous thrombosis, hardware failure, wound healing problems, persistent pain or dysfunction, malunion, nonunion, need for removal of hardware, hardware irritation, limb length discrepancy, malrotation, heart attack, stroke and . All involvedin the discussion agreed and expressed understanding and wished to proceed. Informed consent was signed. Procedure Description: The patient was identified in the pre-op holding area where a purple cloverdale was placed on the correct operative right lower extremity. They were taken to the operating room where their identity was confirmed upon entering the room. They were transferred to the operating room table in the supine position. All bony prominences were well-padded. The patient was induced with general anesthesia and intubated by the anesthesia team. The operative right lower extremity was prepped and draped in the usual sterile fashion. The patient was given preoperative antibiotics Ancef within 1 hour of the incision. The right lower extremity was exsanguinated using an esmarch bandage, tourniquet inflated to 250 mm Hg where it remained for 60 minutes during the case. I marked out an incision longitudinal in nature over the lateral aspect of the ankle starting at thetip of the fibula and extending proximally approximately 5 cm. I carried this out using a #15 blade.I dissected bluntly down to the fibula using tenotomy scissors. I then elevated periosteum to exposethe fracture site. I irrigated the fracture site using normal saline. I cleaned it of fracture hematoma. I then performed a provisional reduction using a lobster claw. I then contoured a distal fibularlocking plate from the Breaux [employer] Nephew 3.5 mm set. I provisionally placed this on the fibula using a guidewire to hold it in place. I then moved it slightly distal to where it initially was such that there would be 3 screws in the distal portion of the fibula. I then used the 2.7 mm drill in order to drill 3 distal screws in the distal fragment of the fibula and placed appropriate length of 3.5 mmlocking screws there. I then placed 4 locking screws in the shaft of the fibula proximally first drilling with a 2.7 mm drill as well. I confirmed the position using intraoperative fluoroscopy. Satisfied with position of the plate and screws I then turned my attention to the medial side of the ankle. I made a curvilinear incision centered over the distal medial malleolus using a #15 blade. I then bluntly dissected with tenotomy scissors. I arrived at the fracture site. I cleaned this of fracture hematoma and performed a provisional reduction using a [id number]-[id number] clamp. I then placed 2 guidewires for 4.0 millimeter screws up through the medial malleolus into the tibia. I confirmed the position ofthe wires using fluoroscopy. I then drilled using the 2.7 mm drill just through the near cortex on the anterior screw and then placed a 40 mm 4.0 mm cannulated screw I then drilled the near cortex of the second posterior screw and then placed another 40 mm 4.0 millimeters screw across the fracture site. I then assess the alignment and screw position on fluoroscopy. Satisfied with all of the alignmentof the hardware I then removed the guidewires. I performed a stress examination with external rotation stressing of the ankle to evaluate the mortise which was intact with no gapping once the malleoli were fixed. We then proceeded with irrigation with normal saline of both wounds. The wounds were closed in layered fashion using Vicryl sutures for the deep layers and running 3-0 nylon sutures for the skin. The wounds were dressed with Xeroform sterile gauze ABD pads and sterile web roll and placed int o a well-padded splint. Plan: Nonweightbearing likely 6 weeks. Follow-up in 2 weeks with splint removal, suture removal, transition to a walker boot continue nonweightbearing for another 4 weeks at that point. X-rays of the ankle out of the splint in 2 weeks 3 views X-rays of the ankle as well as x-rays of the foot in 6 weeks to evaluate the navicular fracture as well. Aspirin for 2 weeks for DVT prophylaxis. All sponge needle and instrument counts were correct at the end of the case. I was present participating and scrubbed for all interval portions of the case. The patient was then awakened from anesthesia and extubated by the anesthesia team. They were then taken to the postoperative care unit in stablecondition. The patient suffered no apparent untoward events. Infection Bundle used? N/A Qasim Amaya (Physician Quality Assurance Specialist [[id number]]) worked under my direction for the duration of the operative session. The human resources assistant adequately prepped the operative site and maintained the best possible exposure of anatomy incident to the procedure. Philippe Martinez MD 06/27/2019 documented in this encounter Plan of Treatment Upcoming Encounters Date Type Specialty Care Team Description 08/07/2022 [facility] Nahid Carl PsyD (TeleHealth) [facility] [place] [phone] (Wo rk) Scheduled Orders Name Type Priority Associated Diagnoses Order S chedule US Imaging for Imaging Routine Once PRN (for Radiant Injection Femoral Nerve use) for 1 Occurrences (APD Only) starting 2018 until 9, 1 completed documented as of this encounter Procedures Procedure Name Priority Date/Time Associated Comments Diagnosis XR FLUORO NO RAD <1HR Routine 06/27/2019 2:20 PM Results for this - OR USE EDT procedure are i n the results section. MODIFIER BREAUX & Yes 06/27/2019 12:52 Acute right ankle NEPHEW - CASS LOC VLP PM EDT pain - LOWER EXTREMITY ORIF BIMALLEOLAR Yes 06/27/2019 12:52 Acute right ankle ANKLE FX. (WRVU PM EDT pain 10.62) US IMAGING FOR Routine 06/27/2019 11:49 Results f or this INJECTION FEMORAL AM EDT procedure are in NERVE (APD ONLY) the results section. SCAN DOC: TELEMETRY 06/27/2019 12:00 Resu lts for this STRIPS AM EDT procedure are i n the results section. documented in this encounter Results XR Fluoro No Rad <1Hr - OR Use (06/27/2019 2:20 PM EDT) Specimen (Source) Anatomical Location Collection Method / Collectio n Time Received Time / Laterality Volume Narrative RAD - 06/27/2019 2:20 PM EDT This exam is auto-finalizing. No interpr etation was done. Philippe Martinez MD G FLUORO ORDERABLES Performing Organization Address City/State/ZIP Code Phon e Number [place], [place] US Imaging for Injection Femoral Nerve (APD Only) (06/27/2019 11:49 AM EDT) Specimen (Source) Anatomical Location Collection Method / Collectio n Time Received Time / Laterality Volume Narrative Dicom, Auditing User - 06/27/2019 11:49 AM EDT This exam is auto-finalizing. No interpr etation was done. Jerome Alanis CRNA [facility] [place] US PROC ORDERABLES SCAN DOC: TELEMETRY STRIPS (06/27/2019 12:00 AM EDT) Narrative 06/27/2019 12:00 AM EDT This result has an attachment that is no t available. Ordered by an unspecified provider. Scanning Provider MEDIA MGR SCAN EXT ORDR/RSLT documented in this encounter Visit Diagnoses Diagnosis Aftercare following surgery for injury a nd trauma documented in this encounter Administered Medications Inactive Administered Medications - up to 3 most recent administrations Medication Order MAR Action Action Date Dose Rate Site acetaminophen (TYLENOL) tablet Given 06/27/2019 4:00 PM EDT 1,00 0 mg 1,000 mg 1,000 mg, Oral, ONCE PRN, 1 dose, Starting on Thu06/26/19 at 0842, Until Thu06/27/19 at 1600, Pain, For pain scale 8 - 10, severe pain, Routine fentaNYL (PF) 50 mcg/mL injection 1 dose, Starting on Thu06/27/19 at 1512, Until 05/31 at 1515, Jovana Kerr : cabinet override fentaNYL 50 mcg/mL multi-dose injection Given 06/27/2019 3:15 PM EDT 25 mcg 25-50 mcg, Intravenous, EVERY 5 MIN PRN, Starting on Thu06/27/19 at 1507, Until Thu06/27/19 at 1642, Pain, Give 25 mcg every 5 minutes PRN for mild to moderate pain (1-5) Give 50 mcg every 5 minutes PRN for moderate to severe pain (6-10). Hold for respiratory rate less than 10 per minute. Maximum dose 250 mcg over one hour. If ordered with hydromorphone or morphine, give hydromorphone or morphine first and use fentanyl for breakthrough pain., PACU Recovery, Routine gabapentin (NEURONTIN) capsule 600 mg Given 06/27/2019 4:17 PM EDT 600 mg 600 mg, Oral, ONCE PRN, 1 dose, Starting on Thu06/27/19 at 1552, Until Thu06/27/19 at 1617, pain, PACU Recovery, Routine ketorolac (TORADOL) injection 30 mg Given 06/27/2019 3:31 PM EDT 30 mg 30 mg, Intravenous, EVERY 6 HOURS PRN, Starting on Thu06/27/19 at 1507, Until Thu06/27/19 at 1642, Pain, PACU Recovery, Routine documented in this encounter Active and Recently Administered Medications Times are shown in EDT. PRN Medication Order 06/25/2019 06/26/2019 06/27/2019 acetaminophen (TYLENOL) tablet 1,000 mg (COMPLETED) 1600 (Given - Provider: Jovana Kerr RN) 1,000 mg, Oral, ONCE PRN, 1 dose, Starti ng Sun 06/26/19 at 0842, Until 06/27/19 at 1600, Pain, For pain scale 8 - 10, severe pain, Routine fentaNYL 50 mcg/mL multi-dose injection (CANCELED) 1515 (Given - Provider: Jovana Kerr RN) 25-50 mcg, Intravenous, EVERY 5 MIN PRN, Starting 06/27/19 at 1507, Until Thu06/27/19 at 1642, Pain, Give 25 mcg every 5 minutes PRN for mild to moderate pain (1-5) Give 50 mcg every 5 minutes PRN fo r moderate to severe pain (6-10). Hold f or respiratory rate less than 10 per minute. Maximum dose 250 mcg over one hour. If ordered with hydromorphone or morphine, give hydromorphone or morphine first a nd use fentanyl for breakthrough pain., PACU Recovery, Routine gabapentin (NEURONTIN) capsule 600 mg (COMPLETED) 1617 (Given - Provider: Jovana Kerr RN) 600 mg, Oral, ONCE PRN, 1 dose, Starting 06/27/19 at 1552, Until Thu06/27/19 at 1617, pain, PACU Recovery, Routine ketorolac (TORADOL) injection 30 mg (CANCELED) 1531 (Given - Provider: Jovana Kerr RN) 30 mg, Intravenous, EVERY 6 HOURS PRN, S tarting 06/27/19 at 1507, Until Thu06/27/19 at 1642, Pain, PACU Recovery, Routine documented in this encounter Care Teams Balance Staff Inspector Relationship Specialty Start Date End Date Susie López APRN PCP - General 05/21/15 06/30/19 documented as of this encounter
--- OUTSIDE RECORDS SUMMARY | 2022-07-25 10:50 | XMS_ITS | Encounter Summary ---
:1960 Author Organization [facility] [place] [address] Care Team Providers Name Role Phone Susie López APRN Primary Care Provider Reason for Visit Reason Comments Follow-up Left shoulder scope 09/24/20 18 Encounter Details Date Type Department Care Team Description 03/25/2019 Office Visit Orthopaedics at [facility], s/p [facility] shoulder Mora Day BAM Hughes arthroscopic RTC [address] repair, [place] [address] repair, and SAD: [phone] [place], [place] [address] 09/24/2018; Dr. Bauer Social [...] Sign Reading Time Taken Comments Blood Pressure 129/72 03/25/2019 8:47 AM EDT Pulse 73 03/25/2019 8:47 AM EDT Temperature 36 ??C (96.8 ??F) 03/25/2019 8:47 AM EDT Respiratory Rate 14 03/25/2019 8:47 AM EDT Oxygen Saturation 100% 03/25/2019 8:47 AM EDT Inhaled Oxygen Concentration - - Weight 75.3 kg (166 lb) 03/25/2019 8:47 AM EDT Height 170.2 cm (5' 7) 03/25/2019 8:47 AM EDT Body Mass Index 26 03/25/2019 8:47 AM EDT documented in this encounter Progress Notes Kari Camara PA - 03/25/2019 9:00 AM EDT PATIENT NAME: Fely Shaw AGE: 58 y.o. MR#: [id number] DATE OF VISIT: 03/25/2019 DATE OF INJURY/ONSET: 08/26/16, Workers [employer] DATE OF SURGICAL PROCEDURE: 09/24/2018 SURGICAL PROCEDURE PERFORMED: Left Shoulder arthroscopic rotator cuff repair (supraspinatus), subacromial decompression, and SLAP Type II repair SURGEON: Christ Bauer MD CHIEF COMPLAINT: Post-op visit s/p shoulder arthroscopy HISTORY OF PRESENT ILLNESS Fely Shaw is a 58 y.o. female comes into clinic today for follow-up after undergoing an arthroscopic shoulder surgery. She is recovering as expected from surgery. She is working two to three 12-hour shifts weekly which she is tolerating well. She is able to avoid pushing and pulling. She has pain in the lateral deltoidregion and biceps that is triggered with more strenuous activity. She has continued to advance her level of activity to include: improved activities around the home and strengthening exercises. Pain Medications: Ibuprofen 400 mg at bedtime and occasionally a Advil PM. Prior to work she will take Ibuprofen 800 mg. She continues use of Gabapentin 600 mg TID for chronic back pain. Physical Therapy: Micheal Kc, KEVIN, 1-2 times weekly. She has been performing home exercises as guided by physical therapy. Working to improve strength, scapular stabilization and ROM. No x-rays were obtained during today's office visit. Arthroscopic images were reviewed with the patient during the first postoperative visit. REVIEW OF SYMPTOMS: Constitutional: Denies fever, chills, fatigue Cardiovascular: Denies chest pain Respiratory: Denies shortness of breath Gastrointestinal: Denies nausea, vomiting, diarrhea, constipation or abdominal pain Neurovascular: Denies numbness or tingling Musculoskeletal: Admits mild radiating lateral shoulder pain, nearly full range of motion, improvingmuscular strength, denies swelling or discoloration Psychiatric: Mood and affect appropriate PHYSICAL EXAM: Blood pressure 129/72, pulse 73, temperature 36 ??C (96.8 ??F), temperature source Tympanic, resp. rate 14, height 170.2 cm (5' 7), weight 75.3 kg (166 lb), SpO2 100 %. General: alert and oriented, no acute distress Cervical Spine: FROM without any pain or reproduction of pain, nontender over the midline. Shoulder Exam Inspection: surgical incisions well healed and benign in appearance, no active ecchymosis, no erythema, no post-op swelling Palpation: mild tenderness to palpation of subacromial borders, biceps, and lateral deltoid ROM: tolerates active forward flexion to 145 degrees, abduction to 145 degrees, external rotation to80 degrees, internal rotation to T9 Strength: mild scapular incorporation to forward flexion and abduction, 5/5 ER, 5/5 IR, 4/5 forward flexion, 4/5 abduction with greatest discomfort, 4/5 supraspinatus, 4-/5 infraspinatus, 5/5 subscapularis Orthopedic special testing: Negative Sulcus Sign, mild discomfort to Empty Can, weakness to Speeds, negative Neer Neurovascular: Normal sensation to light touch along radial, median, ulnar, axillary, and lateral antebrachial cutaneous nerve distributions. Radial pulses are 2+ and equal bilaterally with good hand perfusion. ASSESSMENT/PLAN: Fely Shaw is a 58 y.o. female presents to the clinic in follow-up s/p Left Shoulder arthroscopicrotator cuff repair (supraspinatus), subacromial decompression, and SLAP Type II repair performed on09/24/[address] Bauer. The patient is doing well with their post-op recovery and has discomfort that correlates with reaching and activities away from her body. She is otherwise pain free. Physical therapy to follow rotator cuff repair protocol. Focus on progressing active ROM, strengthening exercise program, and return to full functional level of activity. Patient to perform home exercises several times daily as guided by physical therapy. No pushing, pulling, twisting, lifting, reaching, or overhead activities. As strength continues to improve, physical therapy will advance level of activity. Use of Tylenol 500 mg every 4 hours or 1000 mg orally every 8 hours as needed for postoperative pain. Do not take more than 3000 mg of Tylenol from all sources in a 24-hour. Use of Ibuprofen 600 mg every 8 hours or Aleve 220 - 440 mg every 12 hours with food as needed for postoperative pain and inflammation. Plan to follow-up in 6-8 weeks. Please call the office if you have any questions or concerns prior to your next follow-up visit. documented in this encounter Plan of Treatment Upcoming Encounters Date Type Specialty Care Team Description 08/07/2022 [facility] Nahid Carl PsyD (Telefundfindr) [facility] [address], [place] [address] (Wo rk) documented as of this encounter Visit Diagnoses Diagnosis s/p Left shoulder arthroscopic RTC repai r, SLAP type II repair, and SAD: 09/24/2018; Dr. Bauer Aftercare following surgery of the [facility], [facility] documented in this encounter Care Teams Senior Sales Administrator Relationship Specialty Start Date End Date Susie López APRN PCP - General 05/21/15 06/30/19 documented as of this encounter
--- OUTSIDE RECORDS SUMMARY | 2022-07-25 10:50 | XMS_ITS | Encounter Summary ---
:1960 Author Organization [facility] [place] [address] Care Team Providers Name Role Phone Rene, Susie JE Primary Care Provider Encounter Details Date Type Department Care Team Description 04/11/2019 Laboratory Lab [address] [place] [address] aracely winters; Appointment [facility] Screening for HIV (human immunodeficiency virus); Hospital Need [place] [address] Social History Tobacco Use Types Packs/Day Years [...] [facility] Nahid Carl PsyD (TeleHealth) [facility] [place] [address] (Wo rk) documented as of this encounter Procedures Procedure Name Priority Date/Time Associated Diagnosis Comme nts HEPATITIS C Routine 04/11/2019 8:21 Need for hepatitis C Resu lts for this ANTIBODY AM EDT screening test procedure are in the results section. HIV SCREEN, 4TH Routine 04/11/2019 8:21 Screening for HIV (hum an Results for this GENERATION AM EDT immunodeficiency virus) proc edure are in ([facility]/CGP/APD/NLH) the resul ts section. HEMOGLOBIN A1C Routine 04/11/2019 8:21 Health care maintenance Results for this AM EDT procedure are i n the results section. LIPID PANEL Routine 04/11/2019 8:21 Health care maintenance R esults for this (REFLEX DIRECT AM EDT procedure are in LDL) the results section. documented in this encounter Results Lipid Panel (04/11/2019 8:21 AM EDT) athologist Signature Chol, Total 234 mg/dL [facility] Comment: Lower Risk: <200 mg/dL Average Risk: 200-239 mg/dL Higher Risk: >fl=516 mg/dL Triglycerides 85 mg/dL [facility] Comment: Average Risk/Lower Risk: <150 mg/dL Borderline High Risk: 150-199 mg/dL High Risk: 200-499 mg/dL Very High Risk: >kp=255 mg/dL HDL 71 mg/dL [facility] Comment: Males: ?? Higher Risk: <40 mg/dL Females: ?? HIgher Risk: <50 mg/dL LDL Cholesterol 146 mg/dL [facility] Comment: Lowest Risk: <100 mg/dL Lower Risk: 100-129 mg/dL Borderline High Risk: 130-159 mg/dL High Risk: 160-189 mg/dL Very High Risk: >dd=173 mg/dL Chol/HDL Ratio 3.3 ratio [facility] Lipid Interpretation See Note [facility] Comment: Lipid management should be guided by a p atient? s ASCVD risk, goals and preferences. ACC/AHA Guidelines recommend high intens ity statin if clinical ASCVD or LDL greater than or equal to 190 mg/dL. http://tinyurl.com/SZN-VQK-Hdctifnba Adults aged 40-75 with LDL 70-189 mg/dL should have their 10 year ASCVD risk estimated with the ACC/AHA ASCVD risk es timator http://tools.acc.org/DEONQ-Zffx-Wwwlnwxr r/ Statin should be discussed if risk great er than or equal to 7.5% in non-diabetics. With diabetes, moderate i ntensity statin is recommended if risk less than 7.5%, high intensity if risk g reater than or equal to 7.5%. Annual lipid monitoring on statins is no t necessary. Evaluate secondary causes of Triglycerid es greater than 500 mg/dL or LDL greater than 190 mg/dL: See table 6 of A CC/AHA Guideline. Lifestyle modification is a critical com ponent of ASCVD risk reduction. Specimen Anatomical Collection Method Collection Time Receive d Time (Source) Location / / Volume Laterality Blood specimen 04/11/2019 8:21 AM 019 8:25 (specimen) EDT AM EDT Resulting Agency Comment Spec In Lab Susie López APRN CHEMISTRY ORDERABLES Performing Organization Address City/[facility]/[place] [address] Hepatitis C Antibody (04/11/2019 8:21 AM EDT) Analysis Performed At Patho logist Time Signature Hepatitis C Ab Negative Negative [facility] Specimen Anatomical Collection Method Collection Time Receive d Time (Source) Location / / Volume Laterality Blood specimen 04/11/2019 8:21 AM 019 8:25 (specimen) EDT AM EDT Resulting Agency Comment Spec In Lab Susie López APRN IMMUNOLOGY ORDERABLES Performing Organization Address City/[facility] [place] [address] HIV Screen, 4th Generation (Leb/CGP) (04/11/2019 8:21 AM EDT) Analysis Performed At Patho logist Time Signature HIV-1/2 Ab and Negative Negative [facility] Comment: This 4th Generation HIV test screens for the presence of the HIV-1 p24 antigen as well as antibodies reactive against H IV-1 and HIV-2. A negative screen does not rule out an acute HIV infection. If acute HIV infection is suspected, testing should be repeated in 2 - 3 week s or HIV nucleic acid testing performed. Specimen Anatomical Collection Method Collection Time Receive d Time (Source) Location / / Volume Laterality Blood specimen 04/11/2019 8:21 AM 019 8:25 (specimen) EDT AM EDT Resulting Agency Comment Spec In Lab Susie López APRN IMMUNOLOGY ORDERABLES Performing Organization Address City/State/[place] [address] Hemoglobin A1c (04/11/2019 8:21 AM EDT) P athologist Signature Hemoglobin A1C 5.3 4.3 - 5.6 [facility] Comment: Reference Range: 4.3 - 5.6% 5.7 - 6.4% - Increased Risk of Developin g Diabetes Mellitus >= 6.5% - Consistent with diagnosis of D iabetes Mellitus In the absence of hyperglycemia (i.e. pl asma glucose > 200 mg/dL) or classic symptoms of hyperglycemia a repeat measu rement of HbA1c should be performed on a separate sample to confirm the diagnos is. Diagnosis and Classification of Diabetes Mellitus, Diabetes Care 2013; 36: Suppl. 1, S67-74 Est Avg Gluc 105 mg/dL [facility] Comment: eAG equivalents for HbA1c percentages: HbA1c(%) ?eAG(mg/dL) 6.0 ?126 6.5 ?140 7.0 ?154 7.5 ?169 8.0 ?183 8.5 ?197 9.0 ?212 9.5 ?226 10.0 ? 240 Limitations: The eAG calculation has not been validated on women, individuals below 18 years old and above 70 years old, and individuals with hemoglobinopathies. Additional resources are available on [facility] website. Gary FARMER, Alicia J, Antionette R, et al. ??Tr anslating the A1C assay into estimated average glucose values. ??Diabetes Care 2008:31(8):8817-3119. Specimen Anatomical Collection Method Collection Time Receive d Time (Source) Location / / Volume Laterality Blood specimen 04/11/2019 8:21 AM 019 8:25 (specimen) EDT AM EDT Resulting Agency Comment Spec In Lab Susie López APRN CHEMISTRY ORDERABLES Performing Organization Address City/State/[place] [address] documented in this encounter Visit Diagnoses Diagnosis Health care maintenance Unspecified general medical examination Screening for HIV (human immunodeficienc y virus) Special screening examination for other specified viral diseases Need for hepatitis C screening test Special screening examination for other specified viral diseases documented in this encounter Care Teams Parts Person Relationship Specialty Start Date End Date Susie López APRN PCP - General 05/21/15 06/30/19 documented as of this encounter
--- OUTSIDE RECORDS SUMMARY | 2022-07-25 10:50 | XMS_ITS | Encounter Summary ---
:1960 Author Organization [facility] [place] [address] Care Team Providers Name Role Phone Rene, Susie JE Primary Care Provider Reason for Visit Auth/Cert Specialty Diagnoses / Procedures Referred By Contact Refer red To Contact Diagnoses Pain in right ankle and joints of right foot right ankle fracture Procedures PRO OPEN TREATMENT BIMALLEOLAR ANKLE FRACTURE ORIF BIMALLEOLAR ANKLE FX. (WRVU 10.62) MODIFIER EDMOND & NEPHEW - CASS LOC VLP - LOWER EXTREMITY Referral ID Status Reason Start Date Expiration Date Visits Requ ested Visits Authorized [id number] 1 1 Encounter Details Date Type Department Care Team Description 06/27/2019 Ancillary Procedure Radiology Xray at [facility] [place] [address] Social History Tobacco Use Types Packs/Day [...] Carl PsyD (TeleHealth) [facility] [place], [place] [address] (Wo rk) documented as of this encounter Procedures Procedure Name Priority Date/Time Associated Diagnosis Comme nts US IMAGING FOR Routine 06/27/2019 11:49 AM Result s for this INJECTION FEMORAL EDT procedure are in NERVE (APD ONLY) the results section. documented in this encounter Results US Imaging for Injection Femoral Nerve (APD Only) (06/27/2019 11:49 AM EDT) Specimen (Source) Anatomical Location Collection Method / Collectio n Time Received Time / Laterality Volume Narrative Dicom, Auditing User - 06/27/2019 11:49 AM EDT This exam is auto-finalizing. No interpr etation was done. Jerome Alanis CRNA IMG US PROC ORDERABLES documented in this encounter Visit Diagnoses Not on filedocumented in this encounter Care Teams Health Club Manager Relationship Specialty Start Date End Date Suise López APRN PCP - General 05/21/15 06/30/19 documented as of this encounter
--- OUTSIDE RECORDS SUMMARY | 2022-07-25 10:50 | XMS_ITS | Encounter Summary ---
:1960 Author Organization [facility] [place] [address] Care Team Providers Name Role Phone Rene Susie JE Primary Care Provider Reason for Referral Diagnostic Test (Routine) - Closed Specialty Diagnoses / Procedures Referred By Contact Refer red To Contact Radiology Diagnoses Acute right ankle pain Philippe Martinez MD [facility] Rad Ct Scan Procedures CT Ankle wo Contrast Right (Generic) [facility] [place] [address] [place] [address] Referral ID Status Reason Start Date Expiration Date Visits V isits Requested Authorized [id number] Closed Specialty 06/24/2019 06/23/2020 1 1 Service Requested Encounter Details Date Type Department Care Team Description 06/24/2019 Office Visit Orthopaedics at Philippe Caceres Acu te right ankle pain (Primary Dx); Morgan Toussaint MD s/p Left shoulder arthroscopic RTC repbijan r, DARIENP type II repair, and SAD: 09/24/2018; Dr. Bauer [address] [place] [address] [place] [address] ORTHOPAEDIC SURGERY [place], [place] [address] Social History Tobacco Use Types [...] documented as of this encounter Progress Notes Royce Joseph - 06/24/2019 11:00 AM EDT REVIEW OF SYMPTOMS: Constitutional: Denies fever, chills, fatigue Cardiovascular: Denies chest pain Respiratory: Denies shortness of breath Gastrointestinal: Denies nausea, vomiting, diarrhea, constipation or abdominal pain Neurovascular: Denies numbness or tingling Musculoskeletal: Admits pain in the medial ankle. Psychiatric: Mood and affect appropriate Philippe Martinez MD - 06/24/2019 11:00 AM EDT Orthopedic Surgery Clinic Note [facility] Chief Complaint: No chief complaint on file. The patient is a 59 y.o. female who presents to see me [at the request of Christ Abrams MD [address] [place], [place] [id number]] for the above chief complaint. HPI: The patient is a 59F who was paragliding on 06/22 and landed, not thinking much of it, but had ankle pain after. There did not seem to be any trauma with the landing, it felt normal. Seen in ED. No numbness/tingling. Patient Active Problem List Diagnosis Code ??? Lower back pain M54.5 ??? Lumbosacral spondylosis without myelopathy M47.817 ??? [...] and SAD: 09/24/2018; Dr. Bauer Z47.89 ??? Right ankle pain M25.571 Past Medical History: Diagnosis Date ??? Atypical nevi 10/08/2017 L gluteal fold, noticed at this years annual-she does not recall seeing in the past there, nor doesher spouse according to her-referred to derm It is 1.5 cm high and 2 cm wide, flat, symmetrical, sanchez/brown ??? Lumbosacral spondylosis without myelopathy 06/23/2014 Past Surgical History: Procedure Laterality Date ??? BACK SURGERY 2013 see neuro notes ??? LAMINOTOMY Left 2013 APD ??? PRO ANTERIOR INSTRUMENTATION 2-3 VERTEBRAL SEGMENTS Bilateral 03/23/2017 ANT. SPINAL INSTRUMENTATION, 2-3 VERTEBRA, SEGMENTED (WRVU 11.94) performed by [facility] ??? PRO ARTHRODESIS, ANT INTERBODY,DECOMPRESSION; CERVICAL BELOW C2 Bilateral 03/23/2017 ARTHRODESIS, ANT INTERBODY,DECOMPRESSION; CERVICAL BELOW C2 (WRVU 25) performed by Abel Delvalle MD at [facility] MA[facility] OR ??? PRO AUTOGRAFT SPINE SURGERY MORSELIZED SEP INCISION Bilateral 03/23/2017 AUTOGRAFT FOR SPINE SURGERY ONLY; MORSELIZED (THROUGH SEPARATE SKIN OR FASCIAL INCISION) (WRVU 2.79) performed by Abel Delvalle MD at [facility] MA[facility] OR ??? PRO INSERT BIOMCHN DEV INTERVERTEBRAL DSC SPC W/ARTHRD Bilateral 03/23/2017 INSERTION INTERBODY BIOMECH DEV TO INTERVEBRAL DISC SPACE, EA INTERSPACE (WRVU 4.25) performed by Abel Delvalle MD at [facility] MA[facility] OR Medications were reviewed with the patient today and are up to date. Family History: Family History Problem Relation Age of Onset ??? Hypertension Mother stroke 06/17/17 ??? Hyperlipidemia Mother ??? Osteoporosis Mother ??? Lung Cancer Father 2011 ??? Lung Cancer Brother 65 ??? Breast Cancer Sister 36 ??? Type 2 Diabetes Neg Hx Social History: Social History Socioeconomic History ??? Marital status: Spouse name: Not on file ??? Number of children: Not on file ??? Years of education: Not on file ??? Highest education level: Not on file Occupational History ??? Not on file Social Needs ??? Financial resource strain: Not on file ??? Food insecurity: Worry: Not on file Inability: Not on file ??? Transportation needs: Medical: Not on file Non-medical: Not on file Tobacco Use ??? Smoking status: Former Smoker Types: Cigarettes Last attempt to quit: 08/12/2009 Years since quittin.8 ??? Smokeless tobacco: Never Used Substance and Sexual Activity ??? Alcohol use: Yes Comment: Occasional ??? Drug use: No ??? Sexual activity: Not on file Comment: deferred Lifestyle ??? Physical activity: Days per week: Not on file Minutes per session: Not on file ??? Stress: Not on file Relationships ??? Social connections: Talks on phone: Not on file Gets together: Not on file Attends restoration service: Not on file Active member of club or organization: Not on file Attends meetings of clubs or organizations: Not on file Relationship status: Not on file ??? Intimate partner violence: Fear of current or ex partner: Not on file Emotionally abused: Not on file Physically abused: Not on file Forced sexual activity: Not on file Other Topics Concern ??? Not on file Social History Narrative Left L4-L5 hemilaminotomy, medial facetectomy, foraminotomy with L5-S1 Fely is the 5th of 7 kids Grew up in [facility] Oldest brother is 66, youngest sister is 53 Imaging studies: XR of the right ankle performed at [facility] reviewed including the report and images and demonstrated minimally displaced oblique fibula fracture, medial mal fracture. CT Reviewed showing trimal fractures, as well as nondisplaced navicular fracture. Physical Exam: Awake/Alert, NAD RLE: Swollen medial and lateral ankle. SILT sp/dp/t. EHL/FHL/APF/ADF intact. 2+ dp pulse TTP lateral and medial malleoli. Lungs CTAB Heart RRR Medical decision making/Assessment: 59F with R bimalleolar ankle fracture with posterior malleolus avulsion fracture, small chip. 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 She retired from [employer] at [employer]. Plan: [facility] Boot Surgery Thursday for ORIF Navicular fracture treated with [facility] Philippe Martinez MD MS Orthopaedic Surgery Pager: [phone] documented in this encounter Plan of Treatment Upcoming Encounters Date Type Specialty Care Team Description 08/07/2022 TH Visit [facility] Nahid Carl PsyD (TeleHealth) [facility] [address] [place], [place] [address] (Wo rk) Scheduled Orders Name Type Priority Associated Diagnoses Order S chedule ORIF BIMALLEOLAR ANKLE Procedures Routine Acute right ankle pain Ordered: 06/24/2019 FX. documented as of this encounter Results CT Ankle wo Contrast Right (Generic) (06/24/2019 1:10 PM EDT) Anatomical Region Laterality Modality Ankle Right Computed Tomography Specimen (Source) Anatomical Location Collection Method / Collectio n Time Received Time / Laterality Volume Impressions 06/24/2019 1:53 PM EDT 1. ??SER type IV ankle fracture. There is minimal displacement. 2. ??Small marginal fracture fragments a re present however no incarcerated fragment is seen. 3. ??Nondisplaced fracture of the medial process of the navicular. Thank you for letting us participate in the care of this patient. For questions regarding this report, please contact e number below. ? Narrative 06/24/2019 1:53 PM EDT EXAMINATION: CT ANKLE WO CONTRAST RIGHT (GENERIC) CLINICAL HISTORY: right ankle fracture, eval alignment TECHNIQUE: CT images of the ankle were acquired wit hout contrast. Images were reconstructed in the axial sagittal and coronal planes . In addition, three-dimensional model was created and reviewed on an Oscar workstation. Additional thin oblique images of the na vicular were reconstructed in the 3 planes. COMPARISON: X-ray 06/22/2019 FINDINGS: As seen on the patient's earlier x-ray e xamination there is a supination external rotation type IV fracture of th e ankle. A typical oblique lateral malleolus frac ture is present. Small amount of marginal comminution is present. Minimal displacement is identified. Multiple small fracture fragments are se en adjacent to the joint line and project within the posterior joint space . At the posterior malleolus there is a sm all area of irregularity of the dorsal cortex consistent with small avulsive fr acture. Fracture extends obliquely across the ba se of the medial malleolus. No syndesmotic disruption is identified. There is a nondisplaced fracture of the navicular bone. The fracture extends in a oblique sagitt al projection beginning medial to midline at the dorsal cortex and extendi ng obliquely to the inferior margin of the medial process. Procedure Note Royce Anna MD - 06/24/2019Forma tting of this note might be different from the original. EXAMINATION: CT ANKLE WO CONTRAST RIGHT (GENERIC) CLINICAL HISTORY: right ankle fracture, eval alignment TECHNIQUE: CT images of the ankle were acquired wit hout contrast. Images were reconstructed in the axial sagittal and coronal planes . In addition, three-dimensional model was created and reviewed on an Oscar workstation. Additional thin oblique images of the na vicular were reconstructed in the 3 planes. COMPARISON: X-ray 06/22/2019 FINDINGS: As seen on the patient's earlier x-ray e xamination there is a supination external rotation type IV fracture of th e ankle. A typical oblique lateral malleolus frac ture is present. Small amount of marginal comminution is present. Minimal displacement is identified. Multiple small fracture fragments are se en adjacent to the joint line and project within the posterior joint space . At the posterior malleolus there is a sm all area of irregularity of the dorsal cortex consistent with small avulsive fr acture. Fracture extends obliquely across the ba se of the medial malleolus. No syndesmotic disruption is identified. There is a nondisplaced fracture of the navicular bone. The fracture extends in a oblique sagitt al projection beginning medial to midline at the dorsal cortex and extendi ng obliquely to the inferior margin of the medial process. IMPRESSION 1. SER type IV ankle fracture. There is minimal displacement. 2. Small marginal fracture fragments are present however no incarcerated fragment is seen. 3. Nondisplaced fracture of the medial p rocess of the navicular. Thank you for letting us participate in the care of this patient. For questions regarding this report, please contact e number below. Philippe Martinez MD IMG CT ORDERABLES documented in this encounter Visit Diagnoses Diagnosis Acute right ankle pain - Primary s/p Left shoulder arthroscopic RTC repai r, SLAP type II repair, and SAD: 09/24/2018; Dr. Bauer Aftercare following surgery of the [facility], [facility] Acute right ankle pain documented in this encounter Care Teams Narrow Fabric Loom Fixer Relationship Specialty Start Date End Date Susie López APRN PCP - General 05/21/15 06/30/19 documented as of this encounter
--- OUTSIDE RECORDS SUMMARY | 2022-07-25 10:50 | XMS_ITS | Encounter Summary ---
:1960 [place] [address] Care Team Providers Name Role Phone Susie López APRN Primary Care Provider Reason for Visit Reason Comments Gynecologic Exam repeat pap Encounter Details Date Type Department Care Team Description 02/11/2018 Office Visit [facility] Susie López, [facility] Primary Care at [facility] [address] [place], [place] ENDOCRINOLOGY [address] [place] [id number] [phone] Social History Tobacco Use Types Packs/Day Years [...] Sign Reading Time Taken Comments Blood Pressure 131/66 02/11/2018 9:23 AM EDT Pulse 65 02/11/2018 9:23 AM EDT Temperature 36.6 ??C (97.8 ??F) 02/11/2018 9:23 AM EDT Respiratory Rate - - Oxygen Saturation 100% 02/11/2018 9:23 AM EDT Inhaled Oxygen Concentration - - Weight 70.3 kg (155 lb) 02/11/2018 9:23 AM EDT Height - - Body Mass Index 23.49 12/31/2017 8:47 AM EDT documented in this encounter Patient Instructions Patient InstructionsSusie López APRN - 02/11/2018 9:30 AM EDT Let me know if you need anything! documented in this encounter Progress Notes Susie López APRN - 02/11/2018 9:30 AM EDT Chief Complaint Patient presents with ??? Gynecologic Exam repeat pap Subjective Fely Shaw is a 57 y.o. female in today for repeat PAP as there was lube on the sample Patient Active Problem List Diagnosis Code ??? Lower back pain M54.5 ??? Lumbosacral spondylosis without myelopathy M47.817 ??? Acute pain of left shoulder M25.512 ??? Biceps rupture, proximal S46.119A ??? Neck pain M54.2 ??? Cervical disc disorder with radiculopathy of mid-cervical region M50.120 ??? Left-sided muscle weakness M62.81 ??? Milium L72.0 ??? Cervical radiculopathy M54.12 ??? Atypical nevi D22.9 ??? Perimenopause N95.1 Current Outpatient Prescriptions: ??? gabapentin (NEURONTIN) 300 mg Capsule, Take 2 capsules by mouth 3 times daily., Disp: 540 capsule, Rfl: 3 ??? acetaminophen (TYLENOL) 500 mg Tablet, Take 2 tablets by mouth every 8 hours. Around the clock until 04/02/17, and then as needed. DO NOT EXCEED 3000 mg tylenol in a 24 hour period., Disp: , Rfl: ??? cetirizine (ZYRTEC) 10 mg Tablet, Take 10 mg by mouth daily., Disp: , Rfl: ??? Calcium 500 mg Tablet, Take 1,000 mg by mouth daily., Disp: , Rfl: ??? EPINEPHrine (EPIPEN) 0.3 mg/0.3 mL Auto-Injector, Inject 0.3 mLs into the muscle once as needed.(Patient not taking: Reported on 02/11/2018), Disp: 2 each, Rfl: 1 Allergies Allergen Reactions ??? Allergen Qdj-Outlo-Qrssh Bee Anaphylaxis Allergic to BEES ??? Cis Free Text Allergy food dyes - Hives( gel type medication- bright red and yellow) ??? Cyclobenzaprine Other (See Comments) hallucinations ??? Nexium [Esomeprazole Magnesium] Other (See Comments) Light headed ??? Norflex [Orphenadrine Citrate] Nausea Only Dizziness ROS:daily pain with shouldershe tolerates like a champ Objective Most Recent Vitals: 02/11/18 0923 BP: 131/66 Pulse: 65 Temp: 36.6 ??C (97.8 ??F) SpO2: 100% PainSc: 5 Pelvic, Introitus benign Lulva, labia, vagina slight atrophy but benign Nulliparous OS PAP done and sent Assessment 1. Health care maintenance With poor specimen from my collection Repeat PAP - Cytopathology Gynecological REFILLed No Follow-up on file. SUSIE LÓPEZ APRN documented in this encounter Plan of Treatment Upcoming Encounters Date Type Specialty Care Team Description 08/07/2022 TH Visit [facility] Nahid Carl PsyD (TeleHealth) [facility] [address] [place], [place] [address] (Wo rk) documented as of this encounter Procedures Procedure Name Priority Date/Time Associated Comments Diagnosis CYTOPATHOLOGY Routine 02/11/2018 10:32 Health care Results fo r this GYNECOLOGICAL AM EDT maintenance procedure are in the results section. HPV Routine 02/11/2018 9:45 Results for this AM EDT procedure are i n the results section. PIPE COVERER AND INSULATOR CYTOLOGY Routine 02/11/2018 9:45 Results for this INTERPRETATION AM EDT procedure are in the results section. PIPE COVERER AND INSULATOR CYTOLOGY FINAL Routine 02/11/2018 9:45 Result s for this REPORT AM EDT procedure are i n the results section. documented in this encounter Results Cytopathology Gynecological (02/11/2018 10:32 AM EDT) Specimen Anatomical Collection Method Collection Time Receive d Time (Source) Location / / Volume Laterality AP Specimen 02/11/2018 10:32 02/11/2018 AM EDT 12:59 PM EDT Narrative [facility] - 02/11/2018 12:59 PM EDT Specimen requisition ordered. ??Separate Pathology report to follow Resulting Agency Comment Spec In Lab Susie López APRN PATHOLOGY/CYTOLOGY ORDERABLE S Performing Organization Address City/State/[place] [address] [facility] [address] Malariologist Cytology Final Report (02/11/2018 9:45 AM EDT) Component Value Ref Test Analysis Performed At [facility] Range Method Time Signature Malariologist Cytology [id number] ? Location: [facility] Final Report COROLLA The signing pathologist has (i) examined the relevant preparation(s) for the [facility] specimen(s) and (ii) rendered or confirmed the diagnosis(es) . HOSPITAL [facility] . ? Malariologist Final DIAGNOSIS Normal Negative for intraepithelial lesion or malignancy (NILM). For consensus guidelines for the management of c ervical cancer screening test results, please see: ?? http://www.asccp.org . Electronically signed by: ??Katia Block Verified: ??02/26/2018 Performed at: ??-[facility] Dept. of Pathology, [place], [place] DISCUSSION Atrophic pattern sample. Atrophic vaginitis. HPV RESULTS HPV16 (Result) ?Negative HPV18 (Result) ?Negative HPVOHR (Result) ? Negative HPV (Interpretation) ?See Below HPV (Interpretation) Text: NEGATIVE for high-risk HPV *. *Testing negative for high risk HPV means that the specimen is negative for the following 14 types tested: types 16, 18, 31, 33, 35 , 39, 45, 51, 52, 56, 58, 59, 66, and 68. The test is not intended to detect low risk HPV types. David jm HPV test Specimen: HPV Testing - Cytology Liquid Based Prep The David jm ? HPV anibal t was validated, performed and results reported through the Laboratory for Clinical Gen omics and Advanced Technology (CGAT) at [facility]. ? - Piyush Ruiz, PhD, [facility], Director-[facility] STATEMENT OF ADEQUACY Specimen submitted is satisf actory for evaluation. No endocervical component present. Note: ??Initial cross-sectional studies suggested th at LEXY cells were more commonly identified when an endocervical component was present, however subsequent longitudinal studies fail t o show that women lacking an endocervical component in a Pap smear are at increased risk for LEXY. CLINICAL INFORMATION HPV Option: ?Concurrent HPV and Pap CT/NG Option: ?? No Preparation: ? Liquid based Pap Specimen Source: ? Cervical/Endocervical LMP: ? n/a Hormones?: ? No Hysterectomy?: ? No ?: ? No ?: ? No I.U.D.?: ? No . CLINICAL INFORMATION Pelvic Radiation: ?No Prior PIPE COVERER AND INSULATOR Therapy?: ?No Hist Abnl Pap/Biopsy?: ?? Yes, history of previous abnormal Pap Hist of HPV Vaccine?: ?No Hist of Smoking?: ?Yes Hist of JEAN CLAUDE exposure?: ?? No ICD Diagnosis: ? Z12.4 Encounter for screening for malignant neoplasm of cervix Clinical Data, Significant Therapy and Clinical Impression ? ? : ?years ago This Pap Test has been evalu ated with the assistance of the [employer] Medical[employer] Pap Test Imaging System. Note: The Pap test is a screening test for cervical cancer with an inherent false-negative rate dependent upon several variables. For further information please contact the [facility] Laboratory. Reference: Edgar VELASQUEZ. Warehouse Supervisor of Pap Smear Results. In: Jared BS, Tigre FERNANDES, mike marrufo. The Pap Smear. [place]: Michael, 2002: 71-77. Specimen (Source) Anatomical Collection Method Collection Time Re ceived Time Location / / Volume Laterality 02/11/2018 9:45 AM EDT Susie López APRN PATHOLOGY/CYTOLOGY ORDERABLE S Performing Organization Address City/[facility]/ZIP [place] [address] PIPE COVERER AND INSULATOR Cytology Interpretation (02/11/2018 9:45 AM EDT) DVDPlay Method Time Signature Malariologist Cytology NILM [facility] Comment: Malariologist Cytology Final Report Acces jenniffer: [id number] Malariologist Cytology Comment Present [facility] Endocervical Component Not Present [facility] Specimen Anatomical Collection Method Collection Time Receive d Time (Source) Location / / Volume Laterality AP Specimen 02/11/2018 9:45 AM 8 EDT 10:51 AM EDT Susie López APRN PATHOLOGY/CYTOLOGY ORDERABLE S Performing Organization Address City/[facility]/ZIP [place] [address] HPV (02/11/2018 9:45 AM EDT) DVDPlay Method Time Signature HPV 16 NEGATIVE NEGATIVE [facility] HPV 18 NEGATIVE NEGATIVE [facility] HPV Other HR NEGATIVE NEGATIVE [facility] HPV See Comment [facility] Interpretation [facility] Comment: NEGATIVE for high-risk HPV *. * Testing negative for high risk HPV brook ns that the specimen is negative for the following 14 types tested: ??types 1 6, 18, 31, 33, 35, 39, 45, 51, 52, 56, 58, 59, 66, and 68. ??The test is not in tended to detect low risk HPV types. David Jm HPV test Specimen: HPV Testing - Cytology Liquid Based Prep Specimen Anatomical Collection Method Collection Time Receive d Time (Source) Location / / Volume Laterality Cervical swab 02/11/2018 9:45 AM 02/12/20 18 1:22 (specimen) EDT PM EDT Resulting Agency Comment Spec In Lab Susie López APRN PATHOLOGY/CYTOLOGY ORDERABLE S Performing Organization Address City/State/ZIP [place] [address] documented in this encounter Visit Diagnoses Diagnosis Health care maintenance Unspecified general medical examination documented in this encounter Care Teams Gps Navigation Installer Relationship Specialty Start Date End Date Susie López APRN PCP - General 05/21/15 06/30/19 documented as of this encounter
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
--- OUTSIDE RECORDS SUMMARY | 2022-07-25 10:50 | XMS_ITS | Encounter Summary ---
:1960 Author Organization [facility] [place] [address] Care Team Providers Name Role Phone Erne, Susie JE Primary Care Provider Reason for [...] Expiration Date Visits Requ ested Visits Authorized [id number] 1 1 Encounter Details Date Type Department Care Team Description 06/27/2019 Ancillary Procedure Radiology Xray at [facility] [place] [address] Social History Tobacco Use Types Packs/Day [...] Spine Center Nahid Carl PsyD (TeleHealth) [facility] [place] [address] (Wo rk) documented as of this encounter Procedures Procedure Name Priority Date/Time Associated Diagnosis Comme nts XR FLUORO NO RAD Routine 06/27/2019 2:20 PM Resul ts for this <1HR - OR USE EDT procedure are in the results section. documented in this encounter Results XR Fluoro No Rad <1Hr - OR Use (06/27/2019 2:20 PM EDT) Specimen (Source) Anatomical Location Collection Method / Collectio n Time Received Time / Laterality Volume Narrative DH RAD - 06/27/2019 2:20 PM EDT This exam is auto-finalizing. No interpr etation was done. Philippe Martinez MD IMG FLUORO ORDERABLES Performing Organization Address City/State/ZIP Code Phon e Number [place], [place] documented in this encounter Visit Diagnoses Not on filedocumented in this encounter Care Teams Order Worker Relationship Specialty Start Date End Date Susie López APRN PCP - General 05/21/15 06/30/19 documented as of this encounter
--- OUTSIDE RECORDS SUMMARY | 2022-07-25 10:50 | XMS_ITS | Encounter Summary ---
:1960 Author Organization [facility] [place] [address] Care Team Providers Name Role Phone Susie López JE Primary Care Provider Encounter Details Date Type Department Care Team Description 06/22/2019 Ancillary Procedure Radiology Xray at [facility] [place] [address] Social History Tobacco Use Types Packs/Day [...] Nahid Carl PsyD (TeleHealth) [facility] [place], [place] [address] (Wo rk) documented as of [...] below. Christ Abrams MD IMG DX ORDERABLES documented in this encounter Visit Diagnoses Not on filedocumented in this encounter Care Teams Sheet Mill Supervisor Relationship Specialty Start Date End Date Susie López APRN PCP - General 05/21/15 06/30/19 documented as of this encounter
--- OUTSIDE RECORDS SUMMARY | 2022-07-25 10:50 | XMS_ITS | Encounter Summary ---
:1960 Author Organization [facility] [place] [address] Care Team Providers Name Role Phone Rene Susie JE Primary Care Provider Encounter Details Date Type Department Care Team Description 12/31/2017 Abstract Madelin Toussaint Conversion Apd Conversion, Flowsheet Results Provider, [address] [place] [address] Social History Tobacco Use Types Packs/Day [...] Sign Reading Time Taken Comments Blood Pressure - - Pulse - - Temperature - - Respiratory Rate - - Oxygen Saturation - - Inhaled Oxygen - - Concentration Weight 72 kg (158 lb 11.7 12/31/2017 8:47 Sourced from APD oz) AM EDT Conversion Height 173 cm (5' 8.11) 12/31/2017 8:47 Sourced from A PD AM EDT Conversion Body Mass Index 24.06 12/31/2017 8:47 AM EDT documented in this encounter Plan of Treatment Upcoming Encounters Date Type Specialty Care Team Description 08/07/2022 TH [facility] Nahid Carl PsyD (TeleHealth) [facility] [address] [place], [place] [address] (Wo rk) documented as of this encounter Visit Diagnoses Not on filedocumented in this encounter Care Teams Surgical Dental Assistant Relationship Specialty Start Date End Date Susie óLpez APRN PCP - General 05/21/15 06/30/19 documented as of this encounter
--- OUTSIDE RECORDS SUMMARY | 2022-07-25 10:50 | XMS_ITS | Encounter Summary ---
:1960 [place] [address] Care Team Providers Name Role Phone Rene, Susie JE Primary Care Provider Reason for Referral Physical Therapy (Routine) - Closed Specialty Diagnoses / Procedures Referred By Contact Refer red To Contact Diagnoses Acute right ankle pain Closed fracture of right ankle, initial encounter Philippe Martinez MD Schmidt, Chris, PT [facility] [address] [facility] [place] [address] [place] [address] Referral ID Status Reason Start Date Expiration Date Visits V isits Requested Authorized [id number] Closed Evaluate and 06/24/2019 12/21/2019 12 12 Treat Encounter Details Date Type Department Care Team Description 06/24/2019 Orders Only Orthopaedics at Nilsa Caceres MD Acute right ankle pain; [place] [facility] Closed fracture of right ank le, initial encounter [address] [place] [address] ORTHOPAEDIC [phone] SURGERY [place], [place] [address] Social History Tobacco Use Types [...] as of this encounter Progress Notes Christ Trinidad Jr., RN - 06/24/2019 11:35 AM EDT STOP-BANG Questionnaire BMI: BMI Readings from Last 1 Encounters: 06/22/19 25.06 kg/m?? Age: 59 y.o. Sex: female STOP 1. Do you snore loudly (louder than talking or loud enough to hear through closed doors?) No 2. Do you often feel tired, fatigued, or sleepy during the daytime? No 3. Has anyone observed you stop breathing during your sleep? No 4. Do you have, or have you ever, been treated for high blood pressure? No BANG 1. Is BMI more than 35? No 2. Age over 50? Yes 3. Is neck circumference greater than 16 inches (40 cm)? No 4. Is gender male? No Total Score: 1 High Risk of CHELY: YES 5-8 Intermediate Risk of CHELY: YES 3-4 Low Risk of CHELY: YES 0-2 Christ Trinidad Jr., RN - 06/24/2019 11:35 AM EDT No Pre-op Testing, Labs, or ECG needed per Doctor Martinez. Doctor Martinez will perform the patients pre-op H+P. documented in this encounter Plan of Treatment Upcoming Encounters Date Type Specialty Care Team Description 08/07/2022 TH Visit [facility] Nahid Carl PsyD (TeleHealth) [facility] [place], [place] [address] (Wo rk) Scheduled Referrals Name Type Priority Associated Diagnoses Order S chedule Referral to Outpatient Referral Routine Acute right ankle Ord ered: Physical Therapy pain 06/24/2019 Closed fracture of right ankle, initial encounter documented as of this encounter Results XR Ankle Min 3 views Right (Generic) (07/11/2019 10:48 AM EDT) Anatomical Region Laterality Modality Ankle Right Digital Radiography Specimen (Source) Anatomical Location Collection Method / Collectio n Time Received Time / Laterality Volume Impressions 07/11/2019 1:43 PM EDT No interval change, specifically in alignment of medial and lateral malleolar fractures or position of fixation hardwa re. Thank you for letting us participate in the care of this patient. For questions regarding this report, please contact [facility] number below. ? Electronically signed by: LARRY Blackwood [facility] ([phone]), at 07/11/2019 1:43 PM Narrative 07/11/2019 1:43 PM EDT EXAMINATION: XR ANKLE MIN 3 VIEWS RIGHT (GENERIC) CLINICAL HISTORY: S/P Right Ankle ORIF TECHNIQUE: 3 views RIGHT ankle COMPARISON: Fluoroscopy spot images 06/27/2019 FINDINGS: There is no interval change, specificall y in the alignment of the distal fibular and medial malleolar fractures, which ar e barely visible, and ankle mortise. There is also no change in the position and integrity of the fixation hardware. Procedure Note Ghulam Shaw MD - 07/11/2019Formatt ing of this note might be different from the original. EXAMINATION: XR ANKLE MIN 3 VIEWS RIGHT (GENERIC) CLINICAL HISTORY: S/P Right Ankle ORIF TECHNIQUE: 3 views RIGHT ankle COMPARISON: Fluoroscopy spot images 06/27/2019 FINDINGS: There is no interval change, specificall y in the alignment of the distal fibular and medial malleolar fractures, which ar e barely visible, and ankle mortise. There is also no change in the position and integrity of the fixation hardware. IMPRESSION No interval change, specifically in alig nment of medial and lateral malleolar fractures or position of fixation hardwa re. Thank you for letting us participate in the care of this patient. For questions regarding this report, please contact e number below. Philippe Martinez MD IMG DX ORDERABLES documented in this encounter Visit Diagnoses Diagnosis Acute right ankle pain Closed fracture of right ankle, initial encounter Acute right ankle pain Closed fracture of right ankle, initial encounter documented in this encounter Care Teams Silica Spray Mixer Relationship Specialty Start Date End Date Susie López APRN PCP - General 05/21/15 06/30/19 documented as of this encounter
--- OUTSIDE RECORDS SUMMARY | 2022-07-25 10:50 | XMS_ITS | Encounter Summary ---
:1960 Author Organization [facility] [place] [address] Care Team Providers Name Role Phone Susie López APRN Primary Care Provider Encounter Details Date Type Department Care Team Description 03/04/2019 Telephone [facility] Work [facility] Primary Susie Stafford APRN Care at [facility] [address] [place] [address] [place] [address] [phone] (Wo rk) Social History Tobacco Use Types [...] this encounter Miscellaneous Notes Telephone Encounter - Marla Ramirez RN - 03/04/2019 1:44 PM EDT Contacted the patient by phone to tell her the prescription has been signed and went to [facility] documented in this encounter Plan of Treatment Upcoming Encounters Date Type Specialty Care Team Description 08/07/2022 TH Visit [facility] Nahid Carl PsyD (TeleHealth) [facility] [address], [place] [address] (Wo rk) documented as of this encounter Visit Diagnoses Not on filedocumented in this encounter Care Teams Survey Instrument Operator Relationship Specialty Start Date End Date Susie López APRN PCP - General 05/21/15 06/30/19 documented as of this encounter
--- OUTSIDE RECORDS SUMMARY | 2022-07-25 10:50 | XMS_ITS | Encounter Summary ---
:1960 Author Organization [facility] [place] [address] Care Team Providers Name Role Phone Rene, Susie JE Primary Care Provider Encounter Details Date Type Department Care Team Description 04/14/2018 Orders Only Occupational Medicine at [facility] APRN [facility] [place] [address] [place] [address] [phone] Social History Tobacco Use Types Packs/Day Years [...] and Spine Center Nahid Carl PsyD (TeleHealth) [facility] [address] [place] [address] (Wo rk) documented as of this encounter Procedures Procedure Name Priority Date/Time Associated Comments Diagnosis MISCELLANEOUS LAB Routine 04/14/2018 6:56 AM Resu lts for this REQUEST EDT procedure are i n the results section. documented in this encounter Results Miscellaneous Lab request (04/14/2018 6:56 AM EDT) [facility] gist Method Time Signature Mis Lab Request [facility] Result received in [facility]. HOSPITAL LABORATORY Specimen Anatomical Collection Method Collection Time Receive d Time (Source) Location / / Volume Laterality Blood specimen No Charge / 04/14/2018 6:56 AM 018 6:59 (specimen) Unknown EDT AM EDT Resulting Agency Comment Spec In Lab Iza Westfall APRN HEMATOLOGY ORDERABLES Performing Organization Address City/State/ZIP Code Phon [place] [address] documented in this encounter Visit Diagnoses Not on filedocumented in this encounter Care Teams Vac Press Operator Relationship Specialty Start Date End Date Susie López APRN PCP - General 05/21/15 06/30/19 documented as of this encounter
--- OUTSIDE RECORDS SUMMARY | 2022-07-25 10:50 | XMS_ITS | Encounter Summary ---
:1960 Author Organization [facility] [place] [address] Care Team Providers Name Role Phone Rene, Susie JE Primary Care Provider Encounter Details Date Type Department Care Team Description 11/16/2017 Telephone [facility] Work Well Primary Enid Sadler cia, RN Care at [facility] [address] [place] [address] Social History Tobacco Use Types Packs/Day Years [...] encounter Miscellaneous Notes Telephone Encounter - Marla Sadler RN - 11/16/2017 8:30 AM EST Caller: Fely, patient Name and Date of confirmed: yes Learning Needs Assessment Reviewed: no Reason for Call: Nasal Congestion Assessment (History of Present Illness) Fely reports she started not feeling well last Thursday, 11/09with congestion, fever, not feeling well. On 11/11 she tested positive for the Flu, was not treated with Tamiflu. She reports the congested had improved, but is worse again today. She states she is spiking a fever, not sure how high, she doesn't have a thermometer. Fely reports she is eating and drinking without difficulty. Patient states she may need a note to return to work. Symptom onset: 11/09/17 11/11 tested positive for the flu Medication/Allergy Review: yes Pertinent Positives: Nasal congestion, occasional cough and fever Pertinent Negatives: Fely denies any of the following: Difficulty breathing, chest pain, wheezing, s/s of dehydration, sore throat, facial pain or pressure, ear pain or chills Plan Intervention/Plan/ Follow Up: Fely will continue to monitor at home. She will call this Office if her symptoms worsen or do not improve in the next day or so. She was instructed she would not be able to return to work until she was fever free for 24 hours. Caller/Patient was able to repeat back instructions with accuracy: yes Reference: Telephone Triage Protocols for Nurses, 5th Edition, Kenzie Blanton, 2016/congestion documented in this encounter Plan of Treatment Upcoming Encounters Date Type Specialty Care Team Description 08/07/2022 [facility] Nahid Carl PsyD (TeleHealth) [facility] [address] [place], [place] [address] (Wo rk) documented as of this encounter Visit Diagnoses Not on filedocumented in this encounter Care Teams Backend Python Developer Relationship Specialty Start Date End Date Susie López APRN PCP - General 05/21/15 06/30/19 documented as of this encounter
--- OUTSIDE RECORDS SUMMARY | 2022-07-25 10:50 | XMS_ITS | Encounter Summary ---
:1960 Author Organization [facility] [place] [address] Care Team Providers Name Role Phone Susie López APRN Primary Care Provider Encounter Details Date Type Department Care Team Description 07/15/2018 Abstract Madelin Toussaint Conversion Apd Conversion, Flowsheet Results Provider, [address] [place] [address] Social History Tobacco Use Types Packs/Day [...] PsyD (TeleHealth) [facility] [address] [place], [place] [address] (Wo rk) documented as of this encounter Visit Diagnoses Not on filedocumented in this encounter Care Teams Operations Supervisor Chemical Cleaning Relationship Specialty Start Date End Date Susie López APRN PCP - General 05/21/15 06/30/19 documented as of this encounter
--- OUTSIDE RECORDS SUMMARY | 2022-07-25 10:50 | XMS_ITS | Encounter Summary ---
:1960 Author Organization [facility] [place] [address] Care Team Providers Name Role Phone ReneSusie fleming JE Primary Care Provider Reason for Visit [...] Expiration Date Visits Requ ested Visits Authorized [id number] 1 1 Encounter Details Date Type Department Care Team Description 06/27/2019 Anesthesia Event Operating Room Debar Benitez D, Day EROSION CONTROL COORDINATOR [place] [address] ANESTHESIOLOGY [phone] [place], [place] [address] (Wo rk) Anesthesia Record Procedure Summary Procedure Name Responsible Anesthesia Start Anesthesia Stop Anesthesiologist Time Time ORIF BIMALLEOLAR Jreome Alanis D, EROSION CONTROL COORDINATOR 06/27/19 1252 06/27/19 1452 ANKLE FX. (WRVU 10.62) (Right Ankle) Events Date Time Event Comment 06/27/2019 1222 1252 AN Verify 1252 Start 1255 An Start Data 1257 An Induction 1259 An Intubation 1259 Anesthesia Ready 1313 An Tourn Inflated 250mmHg RLE 1314 Procedure Start 1423 An Tourn Deflated 1433 Extubation/LMA Out 1441 Procedure Stop 1444 an stop data 1450 Recovery or ICU Handoff Patient care was transferred to the destination unit staff after review of the patient's medica l history, current anesthetic/surgi david status and plan, according to the Provider Handoff Checklist. 1452 Stop Name Total fentaNYL 150 mcg Propofol 200 mg Propofol INF 174.24 mg Ondansetron 4 mg Dexamethasone 10 mg BUpivacaine 0.375 % 20 mL BUpivacaine 0.375 % 10 mL Dexmedetomidine 8 mcg Lactated Ringers 0 mL Agents Name O2 Air N2O Sevoflurane (et) Blood No blood administrations on file. Lines, Drains, and Airways Type Details Placement Removal Incision back; midline; 05/26/22 08/14/14 1156 by 2 1715 by (LDA cleanup utility Micaela Weinberge Leonard RA#[id number]); 1715 (LDA cleanup utility RA#[id number]) Incision 03/23/17; 0823; cervical 03/23/17 0823 by 1715 by spine; 05/26/22 (Mary Salmeron, Elizabeth Tenare L cleanup utility RA#[id number]); 1715 (LDA cleanup utility RA#[id number]) Incision 03/23/17; 0842; hip; ICBG 03/23/17 0842 by 05/26 1715 by site; 05/26/22 (Mary Salmeron, Elizabeth Tenare L cleanup utility RA#[id number]); 1715 (LDA cleanup utility RA#[id number]) PIV 06/27/19; 1204; 06/27/19 1204 by Maxim, 06/27/19 1641 by metacarpal vein (top of ZAFAR Reyes, Jovana Valle, ZAFAR gallagher), right; hike-jhu-gimdwf catheter system; 20 gauge; NAYANA; distraction; no longer indicated, removed per policy/procedure, catheter/device intact, site care per policy/procedure; 06/27/19; 1641 Supraglottic Mask Ventilation: Easy 06/27/19 1259 by Annabelle, 06/27/19 1433 by (1); LMA Type: iGel; LMA Jerome Whitfield, Jerome Leigh, EROSION CONTROL COORDINATOR Size: 4; Inserted by: NETTIE Alanis Incision 06/27/19; 1314; 06/27/19 1314 by 05/26/22 1715 b y malleolus; vertical; Kari Mesa RN Mul ibrahima Elizabethabhijit L 05/26/22 (LDA cleanup utility RA#[id number]); 1715 (LDA cleanup utility RA#[id number]) documented in this encounter Social History Tobacco Use Types Packs/Day [...] on file documented as of this encounter OR Notes Anesthesia Postprocedure Evaluation - Jerome Alanis CRNA - 06/28/2019 8:33 AM EDT Department of Anesthesiology Post-procedure Note Patient: Fely Shaw Procedure Summary Date: 06/27/19 Room / Location: [facility] OR MAIN OR Anesthesia Start: 1252 Anesthesia Stop: 1452 Procedures: ORIF BIMALLEOLAR ANKLE FX. (WRVU 10.62) (Right Ankle) MODIFIER EDMOND & NEPHEW - CASS LOC VLP - LOWER EXTREMITY (Right Ankle) Diagnosis: Acute right ankle pain (right ankle fracture) Surgeon: Philippe Martinez MD Responsible Provider: Jerome Alanis CRNA Anesthesia Type: general ASA Status: 2 All Anesthesia Providers: NETTIE Independent: Jerome Alanis CRNA Vitals Value Taken Time BP 139/82 06/27/2019 4:15 PM Temp 36.5 ??C (97.7 ??F) 06/27/2019 2:46 PM Pulse 80 06/27/2019 2:46 PM Resp 13 06/27/2019 4:15 PM SpO2 98 % 06/27/2019 4:15 PM Pain Level 1 06/27/2019 4:15 PM Patient Location: PACU/[facility] Level of Consciousness: Awake and Alert Pain Management: Satisfactory Analgesia PONV: None Cardiovascular Status: At Baseline and Hemodynamically Stable Respiratory Status: At Baseline and Room Air Postoperative Fluid Status: Intravascular EUvolemia Possible Anesthetic Complications: NONE apparent at time of evaluation Final Primary Anesthesia Type: General (The anesthetic type performed was the same as planned.) Comments: BP 139/82 Pulse 80 Temp 36.5 ??C (97.7 ??F) (Temporal) Resp 13 Ht 170.2 cm (5' 7) Wt 72.6 kg (160 lb) SpO2 98% BMI 25.06 kg/m?? Jerome Alanis CRNA Anesthesia Procedure Notes - Jerome Alanis CRNA - 06/27/2019 1:07 PM EDT Associated Order(s): Anesthesia Block Anesthesia Block Performed by: Jerome Alanis CRNA Authorized by: Jerome Alanis CRNA Start Time: 06/27/2019 12:47 PM End Time: 06/27/2019 12:52 PM Patient Location: Pre-op The patient was greeted; the risks and benefits of the procedure were reviewed. Indication: Post-op Pain Control Post-op pain management at the request of surgeon. Block Type: Adductor canal block Laterality: Right Position: Supine Prep: Chlorhexidine Skin Anesthetic: Lidocaine 1% dose: 1 Other: EchoStim 25 8 cm Ultrasound Guided: YES and in-plane. Ultrasound Image(s) were saved. Ultrasound guidance was used to identify the targeted neuronal structure. Ultrasound was also used to identify needle position and to identify tissue (bone, muscle, and blood vessels) to prevent inadvertent intraneural or intravascular needle placement and injection. The spread of local anesthetic was confirmed with live ultrasound imaging. BUpivacaine 0.375 %, 10 mL no complications Anesthesia Procedure Notes - Jerome Alanis CRNA - 06/27/2019 1:06 PM EDT Associated Order(s): Anesthesia Block Anesthesia Block Performed by: Jerome Alanis CRNA Authorized by: Jerome Alanis CRNA Start Time: 06/27/2019 12:35 PM End Time: 06/27/2019 12:45 PM Patient Location: Pre-op The patient was greeted; the risks and benefits of the procedure were reviewed. Indication: Post-op Pain Control Post-op pain management at the request of surgeon. Block Type: Sciatic sciatic/ popliteal nerve block Laterality: Right Position: Prone Prep: Chlorhexidine Skin Anesthetic: Lidocaine 1% dose: 1 Other: EchoStim 25 8 cm Ultrasound Guided: YES and in-plane. Ultrasound Image(s) were saved. Ultrasound guidance was used to identify the targeted neuronal structure. Ultrasound was also used to identify needle position and to identify tissue (bone, muscle, and blood vessels) to prevent inadvertent intraneural or intravascular needle placement and injection. The spread of local anesthetic was confirmed with live ultrasound imaging. Single-Shot: Single-shot BUpivacaine 0.375 %, 20 mL no complications Anesthesia Preprocedure Evaluation - Jerome Alanis CRNA - 06/27/2019 12:01 PM EDT Pre-Anesthesia Evaluation for: Fely Shaw a 59 y.o. female. Procedure(s): ORIF BIMALLEOLAR ANKLE FX. (WRVU 10.62) MODIFIER EDMOND & NEPHEW - CASS LOC VLP - LOWER EXTREMITY Patient Active Problem List Diagnosis ??? Right ankle pain ??? s/p Left shoulder arthroscopic RTC repair, SLAP type II repair, and SAD: 09/24/2018; Dr. Bauer ??? Scoliosis (and kyphoscoliosis), idiopathic ??? Osteoarthrosis ??? Leg pain ??? Left hip pain ??? Pain in joint, pelvic region and thigh ??? Atypical nevi L gluteal fold, noticed at this years annual-she does not recall seeing in the past there, nor doesher spouse according to her-referred to derm 10/08/17-showed N It is 1.5 cm high and 2 cm wide, flat, symmetrical, sanchez/brown ??? Perimenopause LMP ~ 2010 ??? Cervical radiculopathy ??? Milium ??? Neck pain ??? Cervical disc disorder with radiculopathy of mid-cervical region ??? Lumbosacral spondylosis without myelopathy ??? Lower back pain Past Medical History: Diagnosis Date ??? Atypical [...] (WRVU 11.94) performed by [facility] ??? PRO ARTHRODESIS, ANT INTERBODY,DECOMPRESSION; CERVICAL BELOW C2 Bilateral 03/23/2017 ARTHRODESIS, ANT INTERBODY,DECOMPRESSION; CERVICAL BELOW C2 (WRVU 25) performed by Abel Delvalle MD at [facility] MAIN OR ??? PRO AUTOGRAFT SPINE SURGERY MORSELIZED SEP INCISION Bilateral 03/23/2017 AUTOGRAFT FOR SPINE SURGERY ONLY; MORSELIZED (THROUGH SEPARATE SKIN OR FASCIAL INCISION) (WRVU 2.79) performed by Abel Delvalle MD at [facility] MAIN OR ??? PRO INSERT BIOMCHN DEV INTERVERTEBRAL DSC SPC W/ARTHRD Bilateral 03/23/2017 INSERTION INTERBODY BIOMECH DEV TO INTERVEBRAL DISC SPACE, EA INTERSPACE (WRVU 4.25) performed by Abel Delvalle MD at [facility] MAIN OR ??? SHOULDER ARTHROSCOPY Left 08/2018 Social History Tobacco Use ??? Smoking status: Former Smoker Types: Cigarettes Last attempt to quit: 08/12/2009 Years since quittin.8 ??? Smokeless tobacco: Never Used Substance Use Topics ??? Alcohol use: Yes Comment: Occasional Social History Substance and Sexual Activity Drug Use No Allergies Allergen Reactions ??? Allergen Uot-Pnhif-Pfnvx Bee Anaphylaxis Allergic to BEES ??? Cis Free Text Allergy food dyes - Hives( gel type medication- bright red and yellow) ??? Cyclobenzaprine Other (See Comments) hallucinations ??? Nexium [Esomeprazole Magnesium] Other (See Comments) Light headed ??? Norflex [Orphenadrine Citrate] Nausea Only Dizziness Medications: MAR and/or home medications have been reviewed. Physical Exam: Most Recent Vitals: 06/27/19 1146 BP: 152/73 Pulse: 81 Resp: 18 Temp: 36.6 ??C (97.9 ??F) SpO2: 99% Body mass index is 25.06 kg/m??. Height: 170.2 cm (5' 7) Weight: 72.6 kg (160 lb) Airway Assessment: Mallampati: II TM distance: <3 FB Neck ROM: full Cardiovascular Assessment: Rhythm: regular Rate: normal cardiovascular exam normal Pulmonary Assessment: breath sounds clear to auscultation pulmonary exam normal Dental Assessment: - normal exam Misc Assessment: Patient is wearing No contact(s). IV access: Peripheral line Anesthesia Plan: ASA 2 general, with a(n) intravenous induction Femoral block Region - Other Informed Consent: Anesthetic plan and risks discussed with patient. PAT Clinic Note documented in this encounter Miscellaneous Notes Addendum Note - Jerome Alanis CRNA - 06/28/2019 2:45 PM EDT Addendum created 06/28/19 1445 by Jerome Alanis CRNA Sign clinical note documented in this encounter Plan of Treatment Upcoming Encounters Date Type Specialty Care Team Description 08/07/2022 TH Visit [facility] Nahid Carl PsyD ([employer]) [facility] [address] [place], [place] [address] (Wo rk) documented as of this encounter Procedures Procedure Name Priority Date/Time Associated Diagnosis Comme nts ANESTHESIA BLOCK Routine 06/27/2019 1:07 PM Resul ts for this EDT procedure are i n the results section. ANESTHESIA BLOCK Routine 06/27/2019 1:06 PM Resul ts for this EDT procedure are i n the results section. documented in this encounter Results Anesthesia Block (06/27/2019 1:07 PM EDT) Narrative Jerome Alanis CRNA - 06/27/2019 1:07 PM EDT Jerome Alanis CRNA ? 06/27/2019 ??1:08 PM Anesthesia Block Performed by: Jerome Alanis CRNA Authorized by: Jerome Alanis CRNA Start Time: ??06/27/2019 12:47 PM End Time: ??06/27/2019 12:52 PM Patient Location: ??Pre-op The patient was greeted; the risks and b enefits of the procedure were reviewed. ?? Indication: ??Post-op Pain Control Post-op pain management at the request o f surgeon. ?? Block Type: ??Adductor canal block Laterality: ??Right Position: ??Supine Prep: ??Chlorhexidine Skin Anesthetic: ??Lidocaine 1% dose: ??1 Other: ??EchoStim 25 8 cm Ultrasound Guided: ??YES and in-plane. ? ?Ultrasound Image(s) were saved. Ultrasound guidance was used to identify the targeted neuronal structure. Ultrasound was also used to identify nee dle position and to identify tissue (bone, muscle, and blood vessels) to prevent inadvertent intraneural or intravascular needle plac ement and injection. The spread of local anesthetic was confirmed with live ultrasound imaging. ?? BUpivacaine 0.375 %, 10 mL no complications ?? Jerome Alanis CRNA [facility] Anesthesia Block (06/27/2019 1:06 PM EDT) Narrative Jerome Alanis CRNA - 06/27/2019 1:06 PM EDT Jerome Alanis CRNA ? 06/27/2019 ??1:07 PM Anesthesia Block Performed by: Jerome Alanis CRNA Authorized by: Jerome Alanis CRNA Start Time: ??06/27/2019 12:35 PM End Time: ??06/27/2019 12:45 PM Patient Location: ??Pre-op The patient was greeted; the risks and b enefits of the procedure were reviewed. ?? Indication: ??Post-op Pain Control Post-op pain management at the request o f surgeon. ?? Block Type: ??Sciatic sciatic/ popliteal nerve block Laterality: ??Right Position: ??Prone Prep: ??Chlorhexidine Skin Anesthetic: ??Lidocaine 1% dose: ??1 Other: ??EchoStim 25 8 cm Ultrasound Guided: ??YES and in-plane. ? ?Ultrasound Image(s) were saved. Ultrasound guidance was used to identify the targeted neuronal structure. Ultrasound was also used to identify nee dle position and to identify tissue (bone, muscle, and blood vessels) to prevent inadvertent intraneural or intravascular needle plac ement and injection. The spread of local anesthetic was confirmed with live ultrasound imaging. ?? Single-Shot: ??Single-shot BUpivacaine 0.375 %, 20 mL no complications ?? Jerome Alanis CRNA [facility] documented in this encounter Visit Diagnoses Not on filedocumented in this encounter Administered Medications Inactive Administered Medications - up to 3 most recent administrations Medication Order MAR Action Action Date Dose Rate Site BUpivacaine (MARCAINE) 0.375 % Given 06/27/2019 1:06 PM EDT 20 m Ls injection (APD ANESTHESIA) Perineural, Starting on Thu06/27/19 at 1306, Until Thu06/27/19 at 1306, Anesthesia Intra-op, Routine BUpivacaine (MARCAINE) 0.375 % injection (APD Given 1:07 PM EDT 10 mLs ANESTHESIA) Perineural, Starting on Thu06/27/19 at 1307, Until Thu06/27/19 at 1307, Anesthesia Intra-op, Routine dexamethasone (DECADRON) injection Given 06/27/2019 12:57 PM EDT 10 mg PRN, Starting on Thu06/27/19 at 1257, Until Thu06/27/19 at 1458, Anesthesia Intra-op, Routine dexmedetomidine (PRECEDEX) injection Given 06/27/2019 2:34 PM EDT 4 mcg PRN, Starting on Thu06/27/19 at 1434, Until Thu06/27/19 at 1458, Anesthesia Intra-op, Routine Given 06/27/2019 2:30 PM EDT 4 mcg fentaNYL 50 mcg/mL multi-dose injection Given 06/27/2019 2:44 PM EDT 50 mcg PRN, Starting on Thu06/27/19 at 1302, Until Thu06/27/19 at 1458, Anesthesia Intra-op, Routine Given 06/27/2019 2:15 PM EDT 25 mcg Given 06/27/2019 1:02 PM EDT 75 mcg lactated ringers infusion New Bag 06/27/2019 12:50 PM EDT CONTINUOUS PRN, Starting on Thu06/27/19 at 1250, Until Thu06/27/19 at 1458, Anesthesia Intra-op ondansetron (ZOFRAN) injection Given 06/27/2019 2:26 PM EDT 4 mg PRN, Starting on Thu06/27/19 at 1426, Until Thu06/27/19 at 1458, Anesthesia Intra-op, Routine propofol (DIPRIVAN) 10 mg/mL bolus injection Given 12:57 PM EDT 200 mg (Anesthesia) PRN, Starting on Thu06/27/19 at 1257, Until Thu06/27/19 at 1458, Anesthesia Intra-op propofol (DIPRIVAN) infusion New Bag 06/27/2019 12:59 PM 25 mcg/kg/min 10.9 mL/hr CONTINUOUS PRN, Starting on EDT Thu06/27/19 at 1259, Until Thu06/27/19 at 1458, Anesthesia Intra-op, Routine documented in this encounter Care Teams Channel Machine Operator Relationship Specialty Start Date End Date Susie López APRN PCP - General 05/21/15 06/30/19 documented as of this encounter
--- OUTSIDE RECORDS SUMMARY | 2022-07-25 10:50 | XMS_ITS | Encounter Summary ---
:1960 Author Organization [facility] [place] [address] Care Team Providers Name Role Phone Susie López APRN Primary Care Provider Reason for Visit Reason Comments Pre-op Exam shoulder left 09/24/18 Work Related Injury Encounter Details Date Type Department Care Team Description 08/26/2018 Office Visit [facility] Susie López, Work related injury; Primary Care at [facility] Injury to nerve of left shoulder girdle and upper extremity, sequela [address] [facility] [address] [place] ENDOCRINOLOGY [address] [place] [id number] [phone] Social History Tobacco Use Types Packs/Day Years [...] Sign Reading Time Taken Comments Blood Pressure 133/79 08/26/2018 8:04 AM EST Pulse 70 08/26/2018 8:04 AM EST Temperature 36.5 ??C (97.7 ??F) 08/26/2018 8:04 AM EST Respiratory Rate - - Oxygen Saturation 100% 08/26/2018 8:04 AM EST Inhaled Oxygen Concentration - - Weight 72.2 kg (159 lb 3.2 oz) 08/26/2018 8:04 AM EST Height 167.3 cm (5' 5.87) 08/26/2018 8:04 AM EST Body Mass Index 25.8 08/26/2018 8:04 AM EST documented in this encounter Patient Instructions Patient InstructionsSusie López APRN - 08/26/2018 8:00 AM EST Good luck with surgery I will send to Dr Bauer documented in this encounter Progress Notes Susie López APRN - 08/26/2018 8:00 AM EST Chief Complaint Patient presents with ??? Pre-op Exam shoulder left 09/24/18 ??? Work Related Injury Subjective Fely Shaw is a 58 y.o. 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 Tolerated GA 3 times no trouble No trouble extubating Does not snore Patient Active Problem List Diagnosis Code ??? [...] nevi D22.9 ??? Perimenopause N95.1 Current Outpatient Medications: ??? gabapentin (NEURONTIN) 300 mg Capsule, Take 2 capsules by mouth 3 times daily., Disp: 540 capsule, Rfl: 3 ??? acetaminophen (TYLENOL) 500 mg Tablet, Take 2 tablets by mouth every 8 hours. Around the clock until 04/02/17, and then as needed. DO NOT EXCEED 3000 mg tylenol in a 24 hour period., Disp: , Rfl: ??? EPINEPHrine (EPIPEN) 0.3 mg/0.3 mL Auto-Injector, Inject 0.3 mLs into the muscle once as needed.(Patient not taking: Reported on 02/11/2018), Disp: 2 each, Rfl: 1 ??? cetirizine (ZYRTEC) 10 mg Tablet, Take 10 mg by mouth daily., Disp: , Rfl: ??? Calcium 500 mg Tablet, Take 1,000 mg by mouth daily., Disp: , Rfl: Allergies Allergen Reactions ??? Allergen Pjq-Hazbx-Vsyrg Bee Anaphylaxis Allergic to BEES ??? Cis Free Text Allergy food dyes - Hives( gel type medication- bright red and yellow) ??? Cyclobenzaprine Other (See Comments) hallucinations ??? Nexium [Esomeprazole Magnesium] Other (See Comments) Light headed ??? Norflex [Orphenadrine Citrate] Nausea Only Dizziness ROS: L shoulder pain Worse at night Objective Most Recent Vitals: 08/26/18 0804 BP: 133/79 Pulse: 70 Temp: 36.5 ??C (97.7 ??F) SpO2: 100% PainSc: 3 Alert, articulate NAD CN 2-12 intact HEENT benign Neck supple Cor RR - MGR Lungs CTA Abd benign LE no edema Assessment 1. PRE-OP EXAM for Shoulder surgery This is a work related injury She will see Dr Bauer for surgery endo of this month Will send to Dr Dottie LÓPEZ APRN documented in this encounter Plan of Treatment Upcoming Encounters Date Type Specialty Care Team Description 08/07/2022 TH Visit [facility] Nahid Carl PsyD (TeleHealth) [facility] [place] [address] (Wo rk) documented as of this encounter Visit Diagnoses Diagnosis Work related injury Injury, other and unspecified, unspecifi ed site Injury to nerve of left shoulder girdle and upper extremity, sequela documented in this encounter Care Teams Equipment Mechanic Specialist Relationship Specialty Start Date End Date Susie López APRN PCP - General 05/21/15 06/30/19 documented as of this encounter
--- OUTSIDE RECORDS SUMMARY | 2022-07-25 10:50 | XMS_ITS | Encounter Summary ---
:1960 Author Organization [facility] [place] [address] Care Team Providers Name Role Phone Rene Susie WOOTEN Primary Care Provider Reason for Referral Diagnostic Test (Routine) - Closed Specialty Diagnoses / Procedures Referred By Contact Refer red To Contact Radiology Diagnoses Left thigh pain Abel Delvalle MD [facility] Rad Mri Procedures MRI Lumbar Spine wwo Contrast MRI Lumbar Spine wo Contrast (Generic) [facility] [place] [address] [place] [address] Referral ID Status Reason Start Date Expiration Date Visits V isits Requested Authorized [id number] Closed Specialty 09/02/2017 09/02/2018 1 1 Service Requested Reason for Visit Reason Comments Back Pain left buttuck and ant. thigh pain Encounter Details Date Type Department Care Team Description 09/02/2017 Office Visit Spine Center at Abel Delvalle, Left th igh pain; Amanda YOUNG Lumbar stenosis with neurogenic claudica tion [facility] [address] [place] SP[place]ENTER [address] [place] [address] [phone] Social History Tobacco Use Types Packs/Day Years [...] documented as of this encounter Progress Notes Abel Delvalle MD - 09/02/2017 8:20 AM EST Images from the original note were not included. [place] [facility] [place] Delvalle MD, MS. Director Susie López APRN [facility] OCCUPATIONAL MEDICINE / [place] OR 03* [facility] Dear Colleagues, I had the pleasure of seeing this patient at the [facility] for surgical evaluation. The patient returns status post an ACDF at C7-T1 with iliac crest bone graft on 03/23/2017 without complication. Preoperatively she had left interosseous weakness in the nondominant arm which is resolved. She had C8 radiculopathy left greater than right which is also resolved. She does have underlying left shoulder derangement. She is now back to full-time and back to work. She is working with [facility] in PT. No new imaging was obtained. Her neck symptoms have largely resolved. She returns for new complaint is long-standing status post a discectomy in 2013. These symptoms are primarily low back pain and left-sided buttock pain with baseline left L4 radicular symptoms are going to her thigh with persistent symptoms into her wheat and numbness on the fourth and fifth digits of her foot. These symptoms are worsening as she has become more active. She continues to take gabapentin. [facility] was working with her for her back. On exam she has also reflux in the left quadriceps tendon. Numbness in her anterior thigh and anterior wheat. No pain with internal rotation of her hips. Negative straight leg raise. She is able to walkon her toes without difficulty getting on her heel on the left side is more difficult for her. No obvious avid atrophy. An MRI from July 2016 shows L5-S1 broad-based chronic disc herniation with the space collapse. No other significant findings. The plan is to obtain an MRI of her lumbar spine without contrast for reevaluation given exacerbation of her symptoms. I will see her back in follow- up after that is obtained. If the MRI accounts for her lower extremity radicular symptoms consideration for surgery. If not then consideration for injections for persistent back pain which include medial branch blocks are if a an SI joint injections. Allquestions are answered. Sincerely, Abel Delvalle MD MS Shopper Insights Manager - Orthopedic Spine Surgery / Spine Center Steam Table Associate - Department of Orthopedic Surgery / Academics and Research Telegrapher Agent - [facility] 09/02/2017 Spine Center Response Trends Patient-reported scores: myD-H Spine Questionnaire responses 11/18/2016 12/08/2016 03/12/2017 06/16/2017 09/01/2017 VR36 - Physical Function (Range: 0-100) 32.8 39.3 - - - VR36 - Bodily Pain (Range: 0-100) 23.1 37.5 - - - VR36 - PCS (Range: 0-100) 38.7 43.9 - - - VR36 - MCS (Range: 0-100) 39.6 36.6 - - - Oswestry Disability Index (Range: 0-100) 48 (Severe disability) - - - 26 (Moderate disability) Neck Disability Index (Range: 0-100) 38 (Moderate disability) 30 (Moderate disability) - 22 (Mild disability) - PROMIS-10 Physical Health Score - 47.7 44.9 57.7 54.1 PROMIS-10 Mental Health Score - 56 59 62.5 67.6 documented in this encounter Plan of Treatment Upcoming Encounters Date Type Specialty Care Team Description 08/07/2022 Visit [facility] Sp[facility] Nahid Carl PsyD ([employer]) [facility] [place] [address] (Wo rk) documented as of this encounter Results MRI Lumbar Spine wwo Contrast (09/16/2017 10:46 AM EST) Anatomical Region Laterality Modality L-spine Magnetic Resonance Specimen (Source) Anatomical Location Collection Method / Collectio n Time Received Time / Laterality Volume Impressions 09/16/2017 2:10 PM EST Overall, the findings of postsurgical and degenerative change at L4-L5 and L5-S1 are similar to the prior study. No new focal disc herniation or new visible nerve root impingement. Comment: The following findings are so c ommon in people without low back pain that while we report their presence, the y must be interpreted with caution and in context of the clinical situation (Re seun Arora et al, Spine 2001). Findings: (Prevalence in patients withou t low back pain), disc degeneration (decreased T2 signal, height loss, bulge ) (91%), disc T2-signal loss (83%), disc height loss (56%), disc bulge (64%), dis c protrusion (32%), annular fissure (38%). Narrative 09/16/2017 2:10 PM EST EXAMINATION: MRI LUMBAR SPINE WWO CONTRAST CLINICAL HISTORY: left thigh pain s/p pr ior discectomy 2013 TECHNIQUE: MR of the lumbar spine perfor [facility] prior to and following intravenous administration of 14 mL dotarem. COMPARISON: 08/05/2016, 11/05/2015 FINDINGS: There is transitional anatomy. For the purposes of this dictation, the convention of prior imaging exams we fol lowed, with a partially lumbar alignment is 1 segment. The last complete interver tebral disc space is called S1-S2. Alignment is unchanged, with slight dext roconvex curvature at L5, and levoconvex curvature at L2-L3. There is no focal, a ggressive appearing marrow lesion. The conus is normal in appearance, and termi nates at L1. Visualized retroperitoneal structures are unremarkable. Findings at specific levels: L1-L2: No central canal or foraminal david nosis. L2-L3: There is slight loss of disc heig ht with mild disc bulging without central canal or foraminal stenosis. L3-L4: No central canal or foraminal david nosis. L4-L5: A small right lateral disc extrus ion in the background of disc bulge combines with facet arthropathy to produ ce unchanged mild right foraminal narrowing and mild central canal narrowi ng. There is some enhancement of the lateral disc annulus on the left, but no disc herniation or other impingement of the left L4 root. L5-S1: Is loss of disc height. A broad l eft lateral disc protrusion, and endplate osteophyte combine with facet a rthropathy to produce moderate left foraminal narrowing. There is some enhan cement adjacent to the traversing left S1 root, without change compared to the prior study. There is narrowing of the right subarticular recess, which is rela tively mild. The findings are unchanged compared to the prior study. Procedure Note Jeff Bentley MD - 09/16/2017Format ting of this note might be different from the original. EXAMINATION: MRI LUMBAR SPINE O CONTRA ST CLINICAL HISTORY: left thigh pain s/p pr ior discectomy 2013 TECHNIQUE: MR of the lumbar spine perfor med prior to and following intravenous administration of 14 mL dotarem. COMPARISON: 08/05/2016, 11/05/2015 FINDINGS: There is transitional anatomy. For the purposes of this dictation, the convention of prior imaging exams we fol lowed, with a partially lumbar alignment is 1 segment. The last complete interver tebral disc space is called S1-S2. Alignment is unchanged, with slight dext roconvex curvature at L5, and levoconvex curvature at L2-L3. There is no focal, a ggressive appearing marrow lesion. The conus is normal in appearance, and termi nates at L1. Visualized retroperitoneal structures are unremarkable. Findings at specific levels: L1-L2: No central canal or foraminal david nosis. L2-L3: There is slight loss of disc heig ht with mild disc bulging without central canal or foraminal stenosis. L3-L4: No central canal or foraminal david nosis. L4-L5: A small right lateral disc extrus ion in the background of disc bulge combines with facet arthropathy to produ ce unchanged mild right foraminal narrowing and mild central canal narrowi ng. There is some enhancement of the lateral disc annulus on the left, but no disc herniation or other impingement of the left L4 root. L5-S1: Is loss of disc height. A broad l eft lateral disc protrusion, and endplate osteophyte combine with facet a rthropathy to produce moderate left foraminal narrowing. There is some enhan cement adjacent to the traversing left S1 root, without change compared to the prior study. There is narrowing of the right subarticular recess, which is rela tively mild. The findings are unchanged compared to the prior study. IMPRESSION Overall, the findings of postsurgical an d degenerative change at L4-L5 and L5-S1 are similar to the prior study. No new focal disc herniation or new visible nerve root impingement. Comment: The following findings are so c ommon in people without low back pain that while we report their presence, the y must be interpreted with caution and in context of the clinical situation (Re minnie- Marciok et al, Spine 2001). Findings: (Prevalence in patients withou t low back pain), disc degeneration (decreased T2 signal, height loss, bulge ) (91%), disc T2-signal loss (83%), disc height loss (56%), disc bulge (64%), dis c protrusion (32%), annular fissure (38%). Abel Delvalle MD IMG MRI ORDERABLES documented in this encounter Visit Diagnoses Diagnosis Left thigh pain Pain in limb Lumbar stenosis with neurogenic claudica tion Spinal stenosis, lumbar region, with lindsay rogenic claudication Left thigh pain Pain in limb documented in this encounter Care Teams Derrick Boat Captain Relationship Specialty Start Date End Date Susie López APRN PCP - General 05/21/15 06/30/19 documented as of this encounter
--- OUTSIDE RECORDS SUMMARY | 2022-07-25 10:50 | XMS_ITS | Encounter Summary ---
:1960 Author Organization [facility] [place] [address] Care Team Providers Name Role Phone Rene, Susie JE Primary Care Provider Encounter Details Date Type Department Care Team Description 09/08/2018 Abstract Madelin Toussaint Conversion Apd Conversion, Flowsheet Results Provider, [address] [place] [address] Social History Tobacco Use Types Packs/Day [...] Sign Reading Time Taken Comments Blood Pressure 129/76 09/08/2018 8:32 Sourced from APD AM EST Conversion Pulse - - Temperature - - Respiratory Rate - - Oxygen Saturation - - Inhaled Oxygen - - Concentration Weight 72.2 kg (159 lb 2.8 09/08/2018 8:32 Sourced from APD oz) AM EST Conversion Height 173 cm (5' 8.11) 09/08/2018 8:32 Sourced from A PD AM EST Conversion Body Mass Index 24.12 09/08/2018 8:32 AM EST documented in this encounter Plan of Treatment Upcoming Encounters Date Type Specialty Care Team Description 08/07/2022 TH Visit Pain and Spine Center Nahid Carl PsyD (TeleHealth) [facility] [address] [place] [address] (Wo rk) documented as of this encounter Visit Diagnoses Not on filedocumented in this encounter Care Teams Investigator Fraud Relationship Specialty Start Date End Date Susie López APRN PCP - General 05/21/15 06/30/19 documented as of this encounter
--- OUTSIDE RECORDS SUMMARY | 2022-07-25 10:50 | XMS_ITS | Encounter Summary ---
:1960 Author Organization [facility] [place] [address] Care Team Providers Name Role Phone Susie López APRN Primary Care Provider Reason for Visit Reason Onset Date Comments Triage 03/09/2018 Encounter Details Date Type Department Care Team Description 03/09/2018 Telephone [facility] Kiarra Patton RN Triage Care at [facility] INTERNAL MEDICINE [address] [place] [address] [place] [address] [phone] (Wo rk) Social History Tobacco Use Types [...] this encounter Miscellaneous Notes Telephone Encounter - Kiarra Vazquez RN - 03/09/2018 2:27 PM EDT Conjunctivitis Phone triage note. Associated Symptoms: her eye is read drainage from her left eye Denies any of the following: Trauma to eye FB present Photophobia/eye pain or headache visual changes Orbital swelling symptoms more than 5 days does not use contact lenses Treatment: Polymyxin-trimethoprim drops- 2 drops in the affected eye 4 times daily for seven days. Self care instructions: careful hand washing/avoid contact with the eye do not share your towel or washcloth with others in the home. Clean lids gently twice a day with warm water to remove discharge if your job /school involves frequent or close contact with other people, stay out of work until treated for 24 hours. If symptoms do not begin to improve within 2 days or if they get worse, call back. documented in this encounter Plan of Treatment Upcoming Encounters Date Type Specialty Care Team Description 08/07/2022 TH Visit Pain and Spine Center Nahid Carl PsyD (TeleHealth) [facility] [address] [place] [address] (Wo rk) documented as of this encounter Visit Diagnoses Not on filedocumented in this encounter Care Teams Camp Advisor Relationship Specialty Start Date End Date Susie López APRN PCP - General 05/21/15 06/30/19 documented as of this encounter
--- OUTSIDE RECORDS SUMMARY | 2022-07-25 10:50 | XMS_ITS | Encounter Summary ---
:1960 Author Organization [facility] [place] [address] Care Team Providers Name Role Phone Susie López APRN Primary Care Provider Encounter Details Date Type Department Care Team Description 03/10/2018 Orders Only Live Well Work Well Primary Susie Stafford APRN Care at [facility] [address] [place] [address] [place] [address] [phone] (Wo rk) Social History Tobacco Use Types [...] Center Nahid Carl PsyD (TeleHealth) [facility] [address] [place], [place] [address] (Wo rk) documented as of this encounter Visit Diagnoses Not on filedocumented in this encounter Care Teams Salesperson Flowers Relationship Specialty Start Date End Date Susie López APRN PCP - General 05/21/15 06/30/19 documented as of this encounter
--- OUTSIDE RECORDS SUMMARY | 2022-07-25 10:50 | XMS_ITS | Encounter Summary ---
:1960 Author Organization [place] [address] Care Team Providers Name Role Phone None Primary Care Provider Unavailable Encounter Details Date Type Department Care Team Description 07/11/2019 Ancillary Procedure Radiology XRay at Philippe Martinez, Acute right ankle pain; the Multi-Specialty MD Closed fracture of right ankle, initial encounter Clinic at [address] [place]AEDIC [address] SURGERY [phone] [place] [address] Social History Tobacco Use Types Packs/Day Years [...] Nahid Carl PsyD (TeleHealth) [facility] [address] [place] [address] (Wo rk) documented as of this encounter Procedures Procedure Name Priority Date/Time Associated Diagnosis Comme nts XR ANKLE MIN 3 Routine 07/11/2019 10:48 AM Acute right ankle R esults for this VIEWS RIGHT EDT pain procedure are in Closed fracture of the resul ts right ankle, initial section . encounter documented in this encounter Results XR Ankle [...] please contact e number below. ? Narrative 07/11/2019 1:43 PM EDT EXAMINATION: XR [...] lateral malleolar fractures or position of fixation keyona re. Thank you for letting us participate in the care of this patient. For questions regarding this report, please contact e number below. Electronically signed by: Ghulam Shaw [facility] ([phone]), at 07/11/2019 1:43 PM Philippe Martinez MD IMG DX ORDERABLES documented in this encounter Visit Diagnoses Diagnosis Acute right ankle pain Closed fracture of right ankle, initial encounter documented in this encounter Care Teams Padding Gluer Relationship Specialty Start Date End Date None PCP - General 07/11/19 09/14/19 None documented as of this encounter
--- OUTSIDE RECORDS SUMMARY | 2022-07-25 10:50 | XMS_ITS | Encounter Summary ---
:1960 Author Organization [facility] [place] [address] Care Team Providers Name Role Phone ReneSusie fleming JE Primary Care Provider Encounter Details Date Type Department Care Team Description 10/13/2017 Laboratory Appointment Lab 3L [facility] [place] [address] Social History Tobacco Use Types Packs/Day Years [...] and Spine Center Nahid Carl PsyD (TeleHealth) [facility] [address] [place] [address] (Wo rk) documented as of this encounter Procedures Procedure Name Priority Date/Time Associated Diagnosis Comme nts HEMOGLOBIN A1C Routine 10/13/2017 2:49 PM Health care Results for this EST maintenance procedure are i n the results section. documented in this encounter Results Hemoglobin A1c (10/13/2017 2:49 PM EST) athologist Signature Hemoglobin A1C 5.4 4.3 - 5.6 [facility] Comment: Reference Range: 4.3 - [...] 36: Suppl. 1, S67-74 Est Avg Gluc 108 mg/dL [facility] Comment: eAG equivalents for HbA1c percentages: HbA1c(%) ?eAG(mg/dL) 6.0 ?126 6.5 ?140 7.0 ?154 7.5 ?169 8.0 ?183 8.5 ?197 9.0 ?212 9.5 ?226 10.0 ? 240 Limitations: The eAG calculation has not been validated on women, individuals below 18 years old and above 70 years old, and individuals with hemoglobinopathies. Additional resources are available on e ADA website. Gary FARMER, Alicia J, Antionette R, et al. ??Tr anslating the A1C assay into estimated average glucose values. ??Diabetes Care 2008:31(8):3813-9822. Specimen Anatomical Collection Method Collection Time Receive d Time (Source) Location / / Volume Laterality Blood specimen 10/13/2017 2:49 PM 018 2:58 (specimen) EST PM EST Resulting Agency Comment Spec In Lab Susie López APRN CHEMISTRY ORDERABLES Performing Organization Address City/State/ZIP Code Phon e Number [place] [id number] documented in this encounter Visit Diagnoses Diagnosis Health care maintenance Unspecified general medical examination documented in this encounter Care Teams Oil And Gas Specialist Relationship Specialty Start Date End Date Susie López APRN PCP - General 05/21/15 06/30/19 documented as of this encounter
--- OUTSIDE RECORDS SUMMARY | 2022-07-25 10:50 | XMS_ITS | Encounter Summary ---
:1960 Author Organization [facility] [address] Care Team Providers Name Role Phone Susie López APRN Primary Care Provider Reason for Referral Diagnostic Test (Routine) - Closed Specialty Diagnoses / Procedures Referred By Contact Refer red To Contact Radiology Diagnoses Acute right ankle pain Philippe Martinez MD [facility] Rad Ct Scan Procedures CT Ankle wo Contrast Right (Generic) [facility] [place] [address] [place] [address] Referral ID Status Reason Start Date Expiration Date Visits V isits Requested Authorized [id number] Closed Specialty 06/24/2019 06/23/2020 1 1 Service Requested Reason for Visit Diagnostic Test (Routine) - Closed Specialty Diagnoses / Procedures Referred By Contact Refer red To Contact Radiology Diagnoses Acute right ankle pain Philippe Martinez MD [facility] Rad Ct Scan Procedures CT Ankle wo Contrast Right (Generic) [facility] [place] [address] [place] [address] Referral ID Status Reason Start Date Expiration Date Visits V isits Requested Authorized [id number] Closed Specialty 06/24/2019 06/23/2020 1 1 Service Requested Encounter Details Date Type Department Care Team Description 06/24/[address] Scan at [facility] Philippe Martinez, Acute right ankle [facility] [address] [place], [place] [address] ORTHOPAEDIC [phone] [place] [address] Social History Tobacco Use Types Packs/Day Years [...] 28 days. documented as of this encounter Plan of Treatment Upcoming Encounters Date Type Specialty Care Team Description 08/07/2022 TH Visit [facility] Sp[facility] Nahid Carl PsyD (TeleHealth) [facility] [address] [place] [address] (Wo rk) documented as of this encounter Procedures Procedure Name Priority Date/Time Associated Diagnosis Comme nts CT ANKLE WO Routine 06/24/2019 1:10 PM Acute right ankle Resu lts for this CONTRAST RIGHT EDT pain procedure are in the results section. documented in this encounter Results CT Ankle wo Contrast [...] model was created and reviewed on an [employer] workstation. Additional thin oblique images of the [...] model was created and reviewed on an [employer] workstation. Additional thin oblique images of the [...] For questions regarding this report, please contact [facility] number below. Philippe Martinez MD IMG CT ORDERABLES documented in this encounter Visit Diagnoses Diagnosis Acute right ankle pain documented in this encounter Care Teams Hop Weigher Relationship Specialty Start Date End Date Susie López APRN PCP - General 05/21/15 06/30/19 documented as of this encounter
--- OUTSIDE RECORDS SUMMARY | 2022-07-25 10:50 | XMS_ITS | Encounter Summary ---
:1960 Author Organization [place] [address] Care Team Providers Name Role Phone Susie López APRN Primary Care Provider Reason for Visit Reason Onset Date Comments Post Procedure Call 06/28/2019 DOS: 06/27/19 ORIF ri ght bimalleolar ankle fx Encounter Details Date Type Department Care Team Description 06/28/2019 Telephone Orthopaedics at [facility], Post Procedure Call Morgan Toussaint RN (DOS: 06/27/19 ORIF [address] [place] [address] fx) [phone] Social History Tobacco Use Types Packs/Day Years [...] this encounter Miscellaneous Notes Telephone Encounter - Olamide Rodriguez RN - 06/28/2019 9:35 AM EDT Fely Shaw is contacted by the office today to follow up with then and check in to see how they're doing since their recent surgery. Fely Shaw is status post right ORIF bimalleolar ankle fracture which was performed on 06/27/[address] Martinez The patient states Things are going well! The patient denies fever or chills. The patient reports that dressing is clean dry and intact without discharge or redness. Patient reports pain at a 0 on a scale of 0/10. Patient reports that they areicing the surgical site, resting, and elevating appropriate. Patient reports taking advil 400 mg every 6 hours and tylenol 500 mg every 8 hours for effective pain control as needed. Patient is nonweight bearing for 6 weeks and is using crutches for ambulation. Patient is currently taking aspirin 81 mg for DVT prophylaxis. Patient has had a bowel movement since surgery. Patient denies nausea, but endorses flatulence and bloating. Patient was instructed to continue miralax and colace daily for the duration of the opioids. Patient would like PT to be sent to [facility]. Patient advised that PT referral has been sent appropriately. The patient states that she does not have questions regarding her post operative instructions. The patient is advised to call the clinic with any concerns or questions that may arise. The patienthas a follow up appointment scheduled for 07/11/19. documented in this encounter Plan of Treatment Upcoming Encounters Date Type Specialty Care Team Description 08/07/2022 [facility] Nahid Carl PsyD (TeleHealth) [facility] [address] [place], [place] [address] (Wo rk) documented as of this encounter Visit Diagnoses Not on filedocumented in this encounter Care Teams Computer Language Coder Relationship Specialty Start Date End Date Susie López APRN PCP - General 05/21/15 06/30/19 documented as of this encounter
--- OUTSIDE RECORDS SUMMARY | 2022-07-25 10:50 | XMS_ITS | Encounter Summary ---
:1960 Author Organization [facility] [place] [address] Care Team Providers Name Role Phone Susie Lpóez JE Primary Care Provider Encounter Details Date Type Department Care Team Description 10/12/2017 Laboratory Appointment Lab 3L [facility] Perimenopausal; [facility] [place] [address] Social History Tobacco Use Types Packs/Day Years [...] and Spine Center Nahid Carl PsyD (TeleHealth) [facility] [address] [place] [address] (Wo rk) documented as of this encounter Procedures Procedure Name Priority Date/Time Associated Diagnosis Comme nts TSH Routine 10/12/2017 6:52 AM Perimenopausal Results for this EST procedure are i n the results section. GLUCOSE, FASTING Routine 10/12/2017 6:52 AM [facility] care main [place] Results for this EST procedure are i n the results section. LIPID PANEL Routine 10/12/2017 6:52 AM Health care mainlennieloren e Results for this (REFLEX DIRECT EST procedure are in LDL) the results section. documented in this encounter Results (ABNORMAL) Glucose, fasting (10/12/2017 6:52 AM EST) P athologist Signature Glucose 120 (H) 65 - 99 [facility] Fasting mg/dL [facility] Comment: ?Fasting* Glucose Interpretive C riteria Normal ?65-99 mg/dL Impaired Fasting glucose ?100-125 mg/dL Consistent with Diabetes Mellitus ? >or= 126 mg/dL *Fasting is defined as no caloric intake for at least 8 hours In the absence of unequivocal hypergly cemia a plasma glucose value of >or= 126 mg/dL should be repeated on a subseq uent day. Diagnosis and Classification of Diabetes Mellitus, Position Statement from the [employer] Diabetes Association. ??Diabete s Care, Volume 33, Supplement 1, Sep 2009 Specimen Anatomical Collection Method Collection Time Receive d Time (Source) Location / / Volume Laterality Blood specimen 10/12/2017 6:52 AM 018 6:58 (specimen) EST AM EST Resulting Agency Comment Spec In Lab Susie López APRN CHEMISTRY ORDERABLES Performing Organization Address City/State/[place] [address] Lipid Panel (10/12/2017 6:52 AM EST) Patholo gist Method Time Signature Chol, Total 235 <=239 PEG mg/dL [facility] Triglycerides 113 <=199 PEG mg/dL [facility] HDL 73 >=40 PEG mg/dL [facility] LDL Cholesterol 139 <=190 PEG mg/dL [facility] Chol/HDL Ratio 3.2 ratio [facility] Lipid See Note PEG Salgado [facility] Comment: Lipid management should be guided by a p atient? s ASCVD risk, goals and preferences. ACC/AHA Guidelines recommend high intens ity statin if clinical ASCVD or LDL greater than or equal to 190 mg/dL. http://Unruly.com/AKP-IGU-Enudsilaw Adults aged 40-75 with LDL 70-189 mg/dL should have their 10 year ASCVD risk estimated with the ACC/AHA ASCVD risk es timator http://tools.acc.org/GNZZX-Zhif-Zjckjdms r/ Statin should be discussed if risk [...] Location / / Volume Laterality Blood specimen 10/12/2017 6:52 AM 018 6:58 (specimen) EST AM EST Resulting Agency Comment Spec In Lab Susie López APRN CHEMISTRY ORDERABLES Performing Organization Address City/[facility]/ZIP [place] [address] TSH (10/12/2017 6:52 AM EST) P athologist Signature TSH 1.26 0.27 - 4.20 [facility] mlU/ML [facility] Specimen Anatomical Collection Method Collection Time Receive d Time (Source) Location / / Volume Laterality Blood specimen 10/12/2017 6:52 AM 018 6:58 (specimen) EST AM EST Resulting Agency Comment Spec In Lab Susie López APRN CHEMISTRY ORDERABLES Performing Organization Address City/[facility]/ZIP [place] [address] documented in this encounter Visit Diagnoses Diagnosis Perimenopausal Symptomatic menopausal or female climact [facility] Unspecified general medical examination documented in this encounter Care Teams Hand Presser Relationship Specialty Start Date End Date Susie López APRN PCP - General 05/21/15 06/30/19 documented as of this encounter
--- OUTSIDE RECORDS SUMMARY | 2022-07-25 10:50 | XMS_ITS | Encounter Summary ---
:1960 Author Organization [facility] [place] [address] Care Team Providers Name Role Phone Susie López APRN Primary Care Provider Encounter Details Date Type Department Care Team Description 10/13/2017 Orders Only Live Well Work Well Susie López, [facility] care Primary Care at [facility] [address] [place] [address] ENDOCRINOLOGY [phone] [place], [place] [address] Social History Tobacco Use Types [...] Carl PsyD (TeleHealth) [facility] [address] [place], [place] [address] (Wo rk) documented as of this encounter Results Hemoglobin A1c (10/13/2017 2:49 PM EST) athologist Signature Hemoglobin A1C 5.4 4.3 - 5.6 [facility] Comment: Reference Range: 4.3 - [...] 1, S67-74 Est Avg Gluc 108 mg/dL [facility] Comment: eAG equivalents for HbA1c percentages: [...] into estimated average glucose values. ??Diabetes Care 2008:31(8):5982-3487. Specimen Anatomical Collection Method Collection Time Receive d Time (Source) Location / / Volume Laterality Blood specimen 10/13/2017 2:49 PM 018 2:58 (specimen) EST PM EST Resulting Agency Comment Spec In Lab Susie López APRN CHEMISTRY ORDERABLES Performing Organization Address City/State/ZIP Code Phon e Number [place] [phone] documented in this encounter Visit Diagnoses Diagnosis Health care maintenance Unspecified general medical examination documented in this encounter Care Teams Restorative Art Embalmer Relationship Specialty Start Date End Date Susie López APRN PCP - General 05/21/15 06/30/19 documented as of this encounter
--- OUTSIDE RECORDS SUMMARY | 2022-07-25 10:50 | XMS_ITS | Encounter Summary ---
:1960 Author Organization [facility] [address] Care Team Providers Name Role Phone Susie López APRN Primary Care Provider Encounter Details Date Type Department Care Team Description 06/23/2019 Abstract [facility] Toussaint [facility] Provider, [facility], Information Services [address] [place] [address] Social History Tobacco Use Types Packs/Day [...] Carl PsyD (TeleHealth) [facility] [address] [place] [address] (Wo rk) documented as of this encounter Visit Diagnoses Not on filedocumented in this encounter Care Teams Overnight Stocker Relationship Specialty Start Date End Date Susie López APRN PCP - General 05/21/15 06/30/19 documented as of this encounter
--- OUTSIDE RECORDS SUMMARY | 2022-07-25 10:50 | XMS_ITS | Encounter Summary ---
:1960 Author Organization [facility] [address] Care Team Providers Name Role Phone Susie López APRN Primary Care Provider Encounter Details Date Type Department Care Team Description 09/07/2017 Hospital Encounter Mammography at [facility] Susie López, Visit for screening [facility] mammogram Drive [facility] [address] ENDOCRINOLOGY [phone] [place] [address] Social History Tobacco Use Types Packs/Day Years [...] Sig Dispensed Refills Start Date End Date cetirizine (ZYRTEC) 10 mg Take 10 mg by 0 Tablet mouth daily. Calcium 500 mg Take 1,000 mg by 0 TabletIndications: mouth daily. Intervertebral disc disorder with radiculopathy of lumbar region acetaminophen (TYLENOL) Take 2 tablets by 0 03/2403/25/2019 500 mg Tablet mouth every 8 hours. Around the clock until 04/02/17, and then as needed. DO NOT EXCEED 3000 mg tylenol in a 24 hour period. gabapentin (NEURONTIN) Take 2 capsules by 540 capsule 3 01/2702/11/2018 300 mg Capsule mouth 3 times daily. EPINEPHrine (EPIPEN) 0.3 Inject 0.3 mLs 2 each 1 017 03/15/2019 mg/0.3 mL Auto-Injector into the muscle once as needed. documented as of this encounter Plan of Treatment Upcoming Encounters Date Type Specialty Care Team Description 08/07/2022 TH Visit [facility] Nahid Carl PsyD (TeleHealth) [facility] [address] [place], [place] [address] (Wo rk) documented as of this encounter Procedures Procedure Name Priority Date/Time Associated Diagnosis Comme nts MAMMO SCREENING CAD Routine 09/07/2017 8:33 AM Visit for yanci young Results for this AND SHERMAN BILATERAL EST mammogram procedure are in the results section. documented in this encounter Results Mammo Screen CAD and Sherman Bilat (Generic) (09/07/2017 8:33 AM EST) Anatomical Region Laterality Modality Breast Bilateral Mammography Specimen (Source) Anatomical Location Collection Method / Collectio n Time Received Time / Laterality Volume Narrative 09/07/2017 9:48 AM EST BILATERAL MAMMOGRAPHY REASON FOR EXAM: Screening TECHNIQUE: CC and MLO views were obtaine d of each breast using standard 2-D mammography as well as 3-D tomosynth esis. Computer aided detection was used. This is compared with prior images . FINDINGS: ??The breasts are heterogeneou sly dense, which may obscure small masses. There are no suspicious microcal cifications, masses, or areas of distortion. The pattern is stable. CONCLUSION: No mammographic evidence of malignancy. RECOMMENDATION: The [employer] and The Society of Breast Imaging recommend annual screenin g beginning at age 40 for the general female population. Screening renetta uld continue as long as a woman is in good health and is expected to live 1 0 more years or longer. All women should be familiar with the known benefi ts, limitations, and potential harms linked to breast cancer screening. They should also know how their breasts normally look and feel and repor t any breast changes to a health care provider right away. Some women - b ecause of their family history, a genetic tendency, or certain other facto rs - should be screened with MRIs along with mammograms. (The number of wo men who fall into this category is very small.) The patient and health care provider should discuss the patient history and decide if earlier sc reening and breast MRI are appropriate. A result letter has been sent to this daphnie aguilera by [facility]. BIRADS CATEGORY 1: NEGATIVE Susie López APRN IMG MAMMO ORDERABLES documented in this encounter Visit Diagnoses Diagnosis Visit for screening mammogram Other screening mammogram documented in this encounter Care Teams Engraver Relationship Specialty Start Date End Date Susie López APRN PCP - General 05/21/15 06/30/19 documented as of this encounter
--- OUTSIDE RECORDS SUMMARY | 2022-07-25 10:50 | XMS_ITS | Encounter Summary ---
:1960 Author Organization [facility] [place] [address] Care Team Providers Name Role Phone Michael López APRN Primary Care Provider Reason for Visit Reason Comments Annual Exam Encounter Details Date Type Department Care Team Description 03/15/2019 Office Visit [facility] Michael López, Need for hepatitis C screening test; [facility] at [facility] Screening for HIV (human immunodeficienc y virus); [facility] maintenance; [address] [facility] Lumbosacral spondylosis without myelopat [place], [place] ENDOCRINOLOGY Cervical radiculopathy [id number] [place], [place] [phone] [id number] Social History Tobacco Use Types Packs/Day Years [...] Sign Reading Time Taken Comments Blood Pressure 132/63 03/15/2019 10:01 AM EDT Pulse 72 03/15/2019 10:01 AM EDT Temperature 36.3 ??C (97.4 ??F) 03/15/2019 10:01 AM EDT Respiratory Rate - - Oxygen Saturation 100% 03/15/2019 10:01 AM EDT Inhaled Oxygen Concentration - - Weight 75.3 kg (166 lb) 03/15/2019 10:01 AM EDT Height 167.8 cm (5' 6.06) 03/15/2019 10:01 AM EDT Body Mass Index 26.74 03/15/2019 10:01 AM EDT documented in this encounter Patient Instructions Patient InstructionsMichael López APRN - 03/15/2019 10:00 AM EDT Radha Geiger to see you. Please let me know if you need anything. Michael documented in this encounter Progress Notes Michael López APRN - 03/15/2019 10:00 AM EDT . Chief Complaint Patient presents with ??? Annual Exam Subjective Fely Shaw is a 58 y.o. female in today for annual physical. 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 [...] in joint, pelvic region and thigh M25.559 Family History Problem Relation Age of Onset ??? Hypertension Mother stroke 06/17/17 ??? Hyperlipidemia Mother ??? Osteoporosis Mother ??? Lung Cancer Father 2011 ??? Lung Cancer Brother 65 ??? Breast Cancer Sister 36 ??? Type 2 Diabetes Neg Hx Social History Socioeconomic History ??? Marital status: Spouse name: None ??? Number of children: None ??? Years of education: None ??? Highest education level: None Occupational History ??? None Social Needs ??? Financial resource strain: None ??? Food insecurity: Worry: None Inability: None ??? Transportation needs: Medical: None Non-medical: None Tobacco Use ??? Smoking status: Former Smoker Types: Cigarettes Last attempt to quit: 08/12/2009 Years since quittin.5 ??? Smokeless tobacco: Never Used Substance and Sexual Activity ??? Alcohol use: Yes Comment: Occasional ??? Drug use: No ??? Sexual activity: None Comment: deferred Lifestyle ??? Physical activity: Days per week: None Minutes per session: None ??? Stress: None Relationships ??? Social connections: Talks on phone: None Gets together: None Attends sikh service: None Active member of club or organization: None Attends meetings of clubs or organizations: None Relationship status: None ??? Intimate partner violence: Fear of current or ex partner: None Emotionally abused: None Physically abused: None Forced sexual activity: None Other Topics Concern ??? None Social History Narrative Left L4-L5 hemilaminotomy, medial facetectomy, foraminotomy with L5-S1 Fely is the 5th of 7 kids Grew up in [facility] Oldest brother is 66, youngest sister is 53 Current Outpatient Medications Medication Sig Dispense Refill ??? ibuprofen (ADVIL;MOTRIN) 400 mg Tablet Take [...] Tablet Take 1,000 mg by mouth daily. ??? acetaminophen (TYLENOL) 500 mg Tablet Take 2 tablets by mouth every 8 hours. Around the clock until 04/02/17, and then as needed. DO NOT EXCEED 3000 mg tylenol in a 24 hour period. (Patient not taking: Reported on 03/15/2019) No current facility-administered medications for this visit. Allergies Allergen Reactions ??? Allergen Sgj-Wtpnt-Psspx Bee Anaphylaxis Allergic to BEES ??? Cis Free Text Allergy food dyes - Hives( gel type medication- bright red and yellow) ??? Cyclobenzaprine Other (See Comments) hallucinations ??? Nexium [Esomeprazole Magnesium] Other (See Comments) Light headed ??? Norflex [Orphenadrine Citrate] Nausea Only Dizziness myD-H Primary Care 03/14/2019 PROMIS 10-Health in general Very Good PROMIS 10-Quality of life Very Good PROMIS 10-Physical health Very Good PROMIS 10-Mental health Excellent PROMIS 10-Satisfaction with social activities Very Good PROMIS 10-Ability to carry out social activities Very Good PROMIS 10-Ability to carry out physical activities Mostly PROMIS 10-Bothered by emotional problems Never PROMIS 10-Rate of fatigue None PROMIS 10-Rate of pain 4 PROMIS 10- Physical Health Score 50.8 PROMIS 10- Mental Health Score 59 REVIEW OF SYSTEMS 03/14/2019 Constitutional Weight gain, Hot flashes Ear / nose / throat / mouth None of the above Eyes Dry eyes Respiratory None of the above Cardiovascular - Gastrointestinal None of the above Skin, hair None of the above Musculoskeletal Back pain, Joint pain, Reduced range of motion, None of the above Neurological Numbness, tingling, None of the above Hematologic / Lymphatic None of the above Genitourinary None of the above . Wt Readings from Last 3 Encounters: 03/15/19 75.3 kg (166 lb) 09/08/18 72.2 kg (159 lb 2.8 oz) 08/26/18 72.2 kg (159 lb 3.2 oz) No flowsheet data found. Breast Cancer Risk (DARRION) Scores 03/14/2019 Lifetime Risk of Patient 13.4 Average Lifetime Risk 9.5 5-Year Risk of Patient 2.4 Average 5-Year Risk 1.7 Recommend Genetic Risk Assessment w/B-RST 2 (If FH+ for breast ca<50 or ovarian ca) PHQ-9 QUESTIONNAIRE (AMB) 03/14/2019 PHQ - 9 Score (Clinic) - Little interest or pleasure (Clinic) - Little interest or pleasure (Patient) Not at all Down, depressed, hopeless (Clinic) - Down, depressed, hopeless (Patient) Not at all Trouble sleeping (Clinic) - Tired or no energy (Clinic) - Poor appetite or overeating (Clinic) - Feeling like a failure (Clinic) - Trouble concentrating (Clinic) - Moving or speaking slowly (Clinic) - Would be better off (Clinic) - How difficult are the problems (Clinic) - Objective Most Recent Vitals: 03/15/19 1001 BP: 132/63 Pulse: 72 Temp: 36.3 ??C (97.4 ??F) SpO2: 100% PainSc: 5 General appearance - alert, well appearing, and in no distress, oriented to person, place, and time and normal appearing weight Mental Status - alert, oriented to person, place, and time, normal mood, behavior, speech, dress, motor activity, and thought processes Eyes - pupils equal and reactive, extraocular eye movements intact Ears - bilateral TM's and external ear canals normal Nose - normal and patent, no erythema, discharge or polyps Throat - mucous membranes moist, pharynx normal without lesions Neck - supple, no significant adenopathy Thyroid - thyroid is normal in size without nodules or tenderness Chest - clear to auscultation, no wheezes, rales or rhonchi, symmetric air entry Heart - normal rate, regular rhythm, normal S1, S2, no murmurs, rubs, clicks or gallops Abdomen - soft, nontender, nondistended, no masses or organomegaly Breasts - breasts appear normal, no suspicious masses, no skin or nipple changes or axillary nodes Pelvic - examination not indicated Neurological - alert, oriented, normal speech, no focal findings or movement disorder noted, screening mental status exam normal, neck supple without rigidity, cranial nerves II through XII intact, funduscopic exam normal, discs flat and sharp, DTR's normal and symmetric Musculoskeletal - no joint tenderness, deformity or swelling Extremities - peripheral pulses normal, no pedal edema, no clubbing or cyanosis Skin - normal coloration and turgor, no rashes, no suspicious skin lesions noted Assessment 1. Need for hepatitis C screening test/ - Hepatitis C Antibody; Future 2. Screening for HIV (human immunodeficiency virus) - HIV Screen, 4th Generation (Leb/CGP); Future 3. Back pain-on gabapentin-follow with [facility] team 4. Shoulder pain-has PT 5. HCM: Breast health -mammo last August . Orders Placed This Encounter Procedures ??? Shingrix Zoster Vaccine, IM ??? Hepatitis C Antibody ??? HIV Screen, 4th Generation (Leb/CGP) ??? Lipid Panel ??? Hemoglobin A1c Return in about 1 year (around 03/15/2020). MICHAEL LÓPEZ APRN documented in this encounter Plan of Treatment Upcoming Encounters Date Type Specialty Care Team Description 08/07/2022 [facility] Nahid Carl PsyD (TeleHealth) [address] [place], [place] [address] (Wo rk) documented as of this encounter Results Hemoglobin A1c (04/11/2019 8:21 AM EDT) athologist Signature Hemoglobin A1C 5.3 4.3 - 5.6 [facility] Comment: Reference Range: 4.3 - [...] Mellitus, Diabetes Care 2013; 36: Suppl. 1, S67-23 Est Avg Gluc 105 mg/dL [facility] Comment: eAG equivalents for HbA1c percentages: HbA1c(%) ?eAG(mg/dL) 6.0 ?126 6.5 ?140 7.0 ?154 7.5 ?169 8.0 ?183 8.5 ?197 9.0 ?212 9.5 ?226 10.0 ? 240 Limitations: The eAG calculation has not been validated on women, individuals below 18 years old and above 70 years old, and individuals with hemoglobinopathies. Additional resources are available on [facility] ADA website. Gary FARMER, Alicia J, Antionette R, et al. ??Tr anslating the A1C assay into estimated average glucose values. ??Diabetes Care 2008:31(8):9840-8171. Specimen Anatomical Collection Method Collection Time Receive d Time (Source) Location / / Volume Laterality Blood specimen 04/11/2019 8:21 AM 019 8:25 (specimen) EDT AM EDT Resulting Agency Comment Spec In Lab Michael López APRN CHEMISTRY ORDERABLES Performing Organization Address City/State/[place] [address] Lipid Panel (04/11/2019 8:21 AM EDT) P athologist Signature Chol, Total 234 mg/dL [facility] Comment: Lower Risk: <200 mg/dL Average Risk: 200-239 mg/dL Higher Risk: >jy=281 mg/dL Triglycerides 85 mg/dL [facility] Comment: Average Risk/Lower Risk: <150 mg/dL Borderline High Risk: 150-199 mg/dL High Risk: 200-499 mg/dL Very High Risk: >pb=766 mg/dL HDL 71 mg/dL [facility] Comment: Males: ?? Higher Risk: <40 mg/dL Females: ?? HIgher Risk: <50 mg/dL LDL Cholesterol 146 mg/dL [facility] Comment: Lowest Risk: <100 mg/dL Lower Risk: 100-129 mg/dL Borderline High Risk: 130-159 mg/dL High Risk: 160-189 mg/dL Very High Risk: >ge=563 mg/dL Chol/HDL Ratio 3.3 ratio [facility] Lipid Interpretation See Note [facility] Comment: Lipid management should be guided by a p atient? s ASCVD risk, goals and preferences. ACC/AHA Guidelines recommend high intens ity statin if clinical ASCVD or LDL greater than or equal to 190 mg/dL. [email or web address]-[email or web address] Adults aged 40-75 with LDL 70-189 mg/dL should have their 10 year ASCVD risk estimated with the ACC/AHA ASCVD risk es timator http://tools.acc.org/SDTHD-Grul-Waxhztrz r/ Statin should be discussed if risk [...] EDT Resulting Agency Comment Spec In Lab Michael López APRN CHEMISTRY ORDERABLES Performing Organization Address City/State/[place] [address] HIV Screen, 4th Generation (Leb/CGP) (04/11/2019 8:21 AM EDT) Analysis Performed At Patho logist Time Signature HIV-1/2 Ab and Negative Negative [facility] Comment: This 4th Generation HIV test [...] EDT Resulting Agency Comment Spec In Lab Michael López APRN IMMUNOLOGY ORDERABLES Performing Organization Address City/[facility]/[place]IP [place] [address] Hepatitis C Antibody (04/11/2019 8:21 AM EDT) Analysis Performed At Patho logist Time Signature Hepatitis C Ab Negative Negative [facility] Specimen Anatomical Collection Method Collection Time Receive d Time (Source) Location / / Volume Laterality Blood specimen 04/11/2019 8:21 AM 019 8:25 (specimen) EDT AM EDT Resulting Agency Comment Spec In Lab Michael López APRN IMMUNOLOGY ORDERABLES Performing Organization Address City/[facility] [place] [address] documented in this encounter Visit Diagnoses Diagnosis Need for hepatitis C screening test Special screening examination for other specified viral diseases Screening for HIV (human immunodeficienc y virus) Special screening examination for other specified viral diseases Health care maintenance Unspecified general medical examination Lumbosacral spondylosis without myelopat hy Cervical radiculopathy Brachial neuritis or radiculitis nos documented in this encounter Care Teams Hotshot Superintendent Relationship Specialty Start Date End Date Michael López APRN PCP - General 05/21/15 06/30/19 documented as of this encounter
--- OUTSIDE RECORDS SUMMARY | 2022-07-25 10:50 | XMS_ITS | Encounter Summary ---
:1960 Author Organization [facility] [place] [address] Care Team Providers Name Role Phone Susie López APRN Primary Care Provider Reason for Referral Consultation (Routine) - Closed Specialty Diagnoses / Procedures Referred By Contact Refer red To Contact Dermatology Diagnoses Nevus Susie López APRN [facility] Dermatology [facility] [address] R [address] [place] [address] [place] [address] Referral ID Status Reason Start Date Expiration Date Visits V isits Requested Authorized [id number] Closed Consult, 10/08/2017 10/08/2018 1 1 Test & Treat Reason for Visit Reason Comments Annual Exam Pain at back and left butt c heek Encounter Details Date Type Department Care Team Description 10/08/2017 Office Visit Live Well Work Well Susie López, Yessica menopausal; Primary Care at [facility] Health care maintenance; [facility] Nevus; [address] Flaquita oneil; [place], [place] ENDOCRINOLOGY [place] [address] [phone] Social History Tobacco Use Types Packs/Day Years [...] Sign Reading Time Taken Comments Blood Pressure 125/66 10/08/2017 8:09 AM EST Pulse 74 10/08/2017 8:09 AM EST Temperature 36.8 ??C (98.3 ??F) 10/08/2017 8:09 AM EST Respiratory Rate - - Oxygen Saturation 100% 10/08/2017 8:09 AM EST Inhaled Oxygen Concentration - - Weight 72.8 kg (160 lb 9.6 oz) 10/08/2017 8:09 AM EST Height 167.8 cm (5' 6.06) 10/08/2017 8:09 AM EST Body Mass Index 25.87 10/08/2017 8:09 AM EST documented in this encounter Patient Instructions Patient InstructionsBaSusie barrett APRN - 10/08/2017 8:00 AM EST Alexandr- Flex to see you Please do your labs (fasting) Derm will call you. Safe travels--Susie documented in this encounter Progress Notes Susie López APRN - 10/08/2017 8:00 AM EST .. Chief Complaint Patient presents with ??? Annual Exam Pain at back and left butt cheek Subjective Alexandr Shaw is a 57 y.o. female in today for annual physical. Concerns for today ?? Has had a rough year with back and L shoulder pain ?? Her mom in May ?? She and sold their house and moved to a temporary rental situation while they are gettingready for their permanent home ?? 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 Lower back pain M54.5 ??? Lumbosacral spondylosis without myelopathy M47.817 ??? Acute pain of left shoulder M25.512 ??? Biceps rupture, proximal S46.119A ??? Neck pain M54.2 ??? Cervical disc disorder with radiculopathy of mid-cervical region M50.120 ??? Left-sided muscle weakness M62.81 ??? Milium L72.0 ??? Cervical radiculopathy M54.12 ??? Atypical nevi D22.9 ??? Perimenopause N95.1 Family History Problem Relation Age of Onset ??? Hypertension Mother stroke 06/17/17 ??? Hyperlipidemia Mother ??? Osteoporosis Mother ??? Lung Cancer Father 2011 ??? Breast Cancer Sister 36 ??? Type 2 Diabetes Neg Hx Social History Social History ??? Marital status: Spouse name: N/A ??? Number of children: N/A ??? Years of education: N/A Social History Main Topics ??? Smoking status: Former Smoker Types: Cigarettes Quit date: 08/12/2009 ??? Smokeless tobacco: Never Used ??? Alcohol use Yes Comment: Occasional ??? Drug use: No ??? Sexual activity: Not Asked Comment: deferred Other Topics Concern ??? None Social History Narrative Left L4-L5 hemilaminotomy, medial facetectomy, foraminotomy with L5-S1 Alexandr is the 5th of 7 kids Grew up in [place] Oldest brother is 65, youngest sister is 51 Current Outpatient Prescriptions Medication Sig Dispense Refill ??? acetaminophen (TYLENOL) 500 mg Tablet Take 2 tablets by mouth every 8 hours. Around the clock until 04/02/17, and then as needed. DO NOT EXCEED 3000 mg tylenol in a 24 hour period. ??? gabapentin (NEURONTIN) 300 mg Capsule Take 2 capsules by mouth 3 times daily. 540 capsule 3 ??? EPINEPHrine (EPIPEN) 0.3 mg/0.3 mL Auto-Injector Inject 0.3 mLs into the muscle once as needed. 2 each 1 ??? cetirizine (ZYRTEC) 10 mg Tablet Take 10 mg by mouth daily. ??? Calcium 500 mg Tablet Take 1,000 mg by mouth daily. No current facility-administered medications for this visit. Allergies Allergen Reactions ??? Allergen Eps-Ypmff-Ceers Bee Anaphylaxis Allergic to BEES ??? Cis Free Text Allergy food dyes - Hives( gel type medication- bright red and yellow) ??? Cyclobenzaprine Other (See Comments) hallucinations ??? Nexium [Esomeprazole Magnesium] Other (See Comments) Light headed ??? Norflex [Orphenadrine Citrate] Nausea Only Dizziness myD-H Primary Care 10/07/2017 PROMIS 10-Health in general Very Good PROMIS 10-Quality of life Excellent PROMIS 10-Physical health Very Good PROMIS 10-Mental health Excellent PROMIS 10-Satisfaction with social activities Excellent PROMIS 10-Ability to carry out social activities Very Good PROMIS 10-Ability to carry out physical activities Moderately PROMIS 10-Bothered by emotional problems Never PROMIS 10-Rate of fatigue Mild PROMIS 10-Rate of pain 4 PROMIS 10- Physical Health Score 44.9 PROMIS 10- Mental Health Score 67.6 REVIEW OF SYSTEMS 10/07/2017 Constitutional Fever or chills Ear / nose / throat / mouth Hoarseness, Sore throat Eyes Dry eyes Respiratory Cough Cardiovascular None of the above Gastrointestinal None of the above Skin, hair Dry skin Musculoskeletal Back pain, Reduced range of motion Neurological Numbness, tingling, Muscular weakness Hematologic / Lymphatic None of the above Genitourinary None of the above No flowsheet data found. Breast Cancer Risk (DARRION) Scores 08/03/2016 Lifetime Risk of Patient 14 Average Lifetime Risk 10 5-Year Risk of Patient 2.2 Average 5-Year Risk 1.5 Recommend Genetic Risk Assessment w/B-RST 2 (If FH+ for breast ca<50 or ovarian ca) PHQ-9 QUESTIONNAIRE (AMB) 10/08/2017 PHQ - 9 Score (Clinic) 1 (Minimal Depression) Little interest or pleasure (Clinic) Not at all Little interest or pleasure (Patient) - Down, depressed, hopeless (Clinic) Not at all Down, depressed, hopeless (Patient) - Trouble sleeping (Clinic) Several days Tired or no energy (Clinic) Not at all Poor appetite or overeating (Clinic) Not at all Feeling like a failure (Clinic) Not at all Trouble concentrating (Clinic) Not at all Moving or speaking slowly (Clinic) Not at all Would be better off (Clinic) Not at all How difficult are the problems (Clinic) Somewhat difficult Objective Most Recent Vitals: 10/08/17 0809 BP: 125/66 Pulse: 74 Temp: 36.8 ??C (98.3 ??F) SpO2: 100% PainSc: 5 General appearance - alert, well appearing, and in no distress and oriented to person, place, and time Mental Status - alert, oriented to person, [...] nipple changes or axillary nodes Pelvic - VULVA: normal appearing vulva with no masses, tenderness or lesions, VAGINA: normal appearing vagina with normal color and discharge, no lesions, CERVIX: normal appearing cervix without discharge or lesions, nulliparous os Neurological - alert, oriented, normal speech, no focal findings or movement disorder noted, screening mental status exam normal, neck supple without rigidity, cranial nerves II through XII intact, DTR's normal and symmetric Musculoskeletal - no joint tenderness, deformity or swelling Extremities - no pedal edema noted Skin - lesion on L gluteal fold not seen that we recall by either of us-a 1.5 cm tall and 2 cm wide sanchez brown, flat nevus Assessment 1. Perimenopausal/ intact cervix and ovaries Suggest Dexa in 3 years at 60-10 years post LMP and year she turns 60 - TSH; Future 2. Health care maintenance - Cytopathology Gynecological - Lipid Panel; Future - Glucose, fasting; Future 3. Nevus This is new, not observed by alexandr that she can recall - Referral to Dermatology 4. Ongoing L shoulder problems, back Pain Continues to work with her well-established ortho team and work with PT when needed No Follow-up on file. SUSIE LÓPEZ APRN documented in this encounter Plan of Treatment Upcoming Encounters Date Type Specialty Care Team Description 08/07/2022 [facility] Nahid Carl PsyD (TeleHealth) [facility] [place], [place] [address] (Wo rk) Scheduled Referrals Name Type Priority Associated Order Schedule Diagnoses Referral to Outpatient Referral Routine Nevus Ordered: Dermatology 10/08/2017 documented as of this encounter Procedures Procedure Name Priority Date/Time Associated Comments Diagnosis HPV Routine 10/08/2017 8:37 Results for this AM EST procedure are i n the results section. POLISHING PAD MOUNTER CYTOLOGY Routine 10/08/2017 8:37 Results for this INTERPRETATION AM EST procedure are in the results section. POLISHING PAD MOUNTER CYTOLOGY FINAL Routine 10/08/2017 8:37 Result s for this REPORT AM EST procedure are i n the results section. CYTOPATHOLOGY Routine 10/08/2017 8:37 Health care Results for this GYNECOLOGICAL AM EST maintenance procedure are in the results section. documented in this encounter Results (ABNORMAL) Glucose, fasting (10/12/2017 6:52 AM EST) athologist Signature Glucose 120 (H) 65 - 99 [facility] Fasting mg/dL [facility] Comment: ?Fasting* Glucose Interpretive C riteria [...] of Diabetes Mellitus, Position Statement from the [place] [employer]. ??Diabete s Care, Volume 33, Supplement 1, Sep 2009 Specimen Anatomical Collection Method Collection Time Receive d Time (Source) Location / / Volume Laterality Blood specimen 10/12/2017 6:52 AM 018 6:58 (specimen) EST AM EST Resulting Agency Comment Spec In Lab Susie López JE CHEMISTRY ORDERABLES Performing Organization Address City/[facility]/ZIP Code Phon e Number [address] TSH (10/12/2017 6:52 AM EST) P athologist Signature TSH 1.26 0.27 - 4.20 [facility] mlU/ML [facility] Specimen Anatomical Collection Method Collection Time Receive d Time (Source) Location / / Volume Laterality Blood specimen 10/12/2017 6:52 AM 018 6:58 (specimen) EST AM EST Resulting Agency Comment Spec In Lab Susie López APRN CHEMISTRY ORDERABLES Performing Organization Address City/[facility] Phon e Number [address] Lipid Panel (10/12/2017 6:52 AM EST) Patholo gist Method Time Signature Chol, Total 235 <=239 PEG mg/dL [facility] Triglycerides 113 <=199 PEG mg/dL [facility] HDL 73 >=40 PEG mg/dL [facility] LDL Cholesterol 139 <=190 PEG mg/dL [facility] Chol/HDL Ratio 3.2 ratio [facility] Lipid See Note PEG Interpretation [facility] Comment: Lipid management should be guided by a p atient? s ASCVD risk, goals and preferences. ACC/AHA Guidelines recommend high intens ity statin if clinical ASCVD or LDL greater than or equal to 190 mg/dL. http://tinyurl.com/DCL-TVC-Omuionlcm Adults aged 40-75 with LDL 70-189 mg/dL should have their 10 year ASCVD risk estimated with the ACC/AHA ASCVD risk es timator http://tools.acc.org/UVWLW-Cbtn-Aylvabwl r/ Statin should be discussed if risk [...] López APRN CHEMISTRY ORDERABLES Performing Organization Address City/[facility]/ZIP [facility] Phon e Payal [address] POLISHING PAD MOUNTER Cytology Interpretation (10/08/2017 8:37 AM EST) Component Value Ref Test Analysis Performed At [facility] Range Method Time Signature Product Development Assistant Cytology Unsatisfactory [facility] Interpretation [facility] Comment: Product Development Assistant Cytology Final Report Acces jenniffer: [id number] Product Development Assistant Cytology Comment Present [facility] Endocervical Component Unsatisfactory [place] R[place] [facility] Specimen Anatomical Collection Method Collection Time Receive d Time (Source) Location / / Volume Laterality AP Specimen 10/08/2017 8:37 AM 8 4:04 EST PM EST Susie López APRN PATHOLOGY/CYTOLOGY ORDERABLE S Performing Organization Address [facility]/ZIP [facility] [place] [address] Product Development Assistant Cytology Final Report (10/08/2017 8:37 AM EST) Component Value Ref Test Analysis Performed At [facility] Range Method Time Signature Product Development Assistant Cytology [id number] ? Location: [facility] Final Report [place] The signing pathologist has (i) examined the relevant preparation(s) for the [facility] specimen(s) and (ii) rendered or confirmed the diagnosis(es) . HOSPITAL LABORATORY . ? Product Development Assistant Final DIAGNOSIS Unsatisfactory Specimen submitted is unsatisfactory for evaluation. See Dis cussion. For consensus guidelines for the management of c ervical cancer screening test results, please see: ?? http://www.asccp.org . Electronically signed by: ??Philipp LANDEROS(ASCP) Kari Valle Verified: ??10/20/2017 ?Service Crew Supervisor Performed at: ??-[facility] Dept. of Pathology, [place], [place] DISCUSSION Specimen processed and exami laurie, but unsatisfactory for evaluation of epithelial abnormality because of insu fficient squamous cellularity due to lubricant residue. HPV RESULTS HPV16 (Result) ?Negative HPV18 (Result) [...] Gen omics and Advanced Technology (CGAT) at [facility]. ? - Piyush Ruiz, PhD, [facility], Director-[facility] STATEMENT OF ADEQUACY Specimen submitted is unsatisfactory. See Discussion. CLINICAL INFORMATION HPV Option: ?Concurrent HPV and Pap Preparation: ? Liquid based Pap Specimen Source: ? Cervical/Endocervical LMP: ? NA Hormones?: ? No Hysterectomy?: ? No ?: ? No ?: ? No I.U.D.?: ? No Pelvic Radiation: ?No Prior POLISHING PAD MOUNTER Therapy?: ?No Hist Abnl Pap/Biopsy?: ?? No Hist of HPV Vaccine?: ?No Hist of Smoking?: ?Yes Hist of JEAN CLAUDE exposure?: ?? No . CLINICAL INFORMATION ICD Diagnosis: ? Z12.4 Encounter for screening for malignant neoplasm of cervix Clinical Data, Significant Therapy and Clinical Impression ? ? : ?_ This Pap Test has been evalu ated with the assistance of the RMDMgroupp Pap Test Imaging System. Note: The Pap test is a screening test for cervical cancer with an inherent false-negative rate dependent upon several variables. For further information please contact the [facility] Laboratory. Reference: Edgar VELASQUEZ. Junior Sales Assistant of Pap Smear Results. In: Jared BS, Tigre FERNANDES, e d. The Pap Smear. [place]: Michael, 2002: 71-77. Specimen (Source) Anatomical Collection Method Collection Time Re ceived Time Location / / Volume Laterality 10/08/2017 8:37 AM EST Susie López APRN PATHOLOGY/CYTOLOGY ORDERABLE S Performing Organization Address City/State/[place] [address] HPV (10/08/2017 8:37 AM EST) [facility] Method Time Signature HPV 16 NEGATIVE NEGATIVE [facility] HPV 18 NEGATIVE NEGATIVE [facility] HPV Other HR NEGATIVE NEGATIVE [facility] HPV See Comment [facility] Comment: NEGATIVE for high-risk HPV *. [...] Location / / Volume Laterality Cervical swab 10/08/2017 8:37 AM 10/08/19 18 1:28 (specimen) EST PM EST Resulting Agency Comment Spec In Lab Susie López APRN PATHOLOGY/CYTOLOGY ORDERABLE S Performing Organization Address City/[facility]/[place] [address] Cytopathology Gynecological (10/08/2017 8:37 AM EST) Specimen Anatomical Collection Method Collection Time Receive d Time (Source) Location / / Volume Laterality AP Specimen 10/08/2017 8:37 AM 8 1:07 EST PM EST Narrative [facility] - 10/08/2017 1:07 PM EST Specimen requisition ordered. ??Separate Pathology report to follow Resulting Agency Comment Spec In Lab Susie López APRN PATHOLOGY/CYTOLOGY ORDERABLE S Performing Organization Address City/State/[place] [address] documented in this encounter Visit Diagnoses Diagnosis Perimenopausal Symptomatic menopausal or female climact [place] Health care maintenance Unspecified general medical examination Nevus Benign neoplasm of skin, site unspecifie d Atypical nevi Benign neoplasm of skin, site unspecifie d Perimenopause Symptomatic menopausal or female climact [place] documented in this encounter Care Teams Solar/Renewable Energy Sales Relationship Specialty Start Date End Date Susie López APRN PCP - General 05/21/15 06/30/19 documented as of this encounter
--- OUTSIDE RECORDS SUMMARY | 2022-07-25 10:50 | XMS_ITS | Encounter Summary ---
:1960 Author Organization [facility] [place] [address] Care Team Providers Name Role Phone Susie López APRN Primary Care Provider Reason for Referral Diagnostic Test (Routine) - Closed Specialty Diagnoses / Procedures Referred By Contact Refer red To Contact Radiology Diagnoses Left thigh pain Abel Delvalle MD [facility] Rad Mri Procedures MRI Lumbar Spine wwo Contrast MRI Lumbar Spine wo Contrast (Generic) [facility] [place] [address] [place] [address] Referral ID Status Reason Start Date Expiration Date Visits V isits Requested Authorized [id number] Closed Specialty 09/02/2017 09/02/2018 1 1 Service Requested Reason for Visit Diagnostic Test (Routine) - Closed Specialty Diagnoses / Procedures Referred By Contact Refer red To Contact Radiology Diagnoses Left thigh pain Abel Delvalle MD [facility] Rad Mri Procedures MRI Lumbar Spine wwo Contrast MRI Lumbar Spine wo Contrast (Generic) [facility] [place] [address] [place] [address] Referral ID Status Reason Start Date Expiration Date Visits V isits Requested Authorized [id number] Closed Specialty 09/02/2017 09/02/2018 1 1 Service Requested Encounter Details Date Type Department Care Team Description 09/16/2017 Hospital Encounter MRI at [facility] Abel Delvalle, Left thigh pain [facility] [place] [address] SPINE CENTER [phone] [place], [place] [address] Social History Tobacco Use Types [...] and Spine Center Nahid Carl PsyD (TeleHealth) [facility] [place] [address] (Wo rk) documented as of this encounter Procedures Procedure Name Priority Date/Time Associated Diagnosis Comme nts MRI LUMBAR SPINE Routine 09/16/2017 10:46 AM Left thigh pain R esults for this WITH/WO CONTRAST EST procedure a re in the results section. documented in this encounter Results MRI Lumbar Spine wwo [...] from the original. EXAMINATION: MRI LUMBAR SPINE WWO CONTRA ST CLINICAL HISTORY: left thigh pain s/p pr ior discectomy 2013 TECHNIQUE: MR of the lumbar spine [facility] prior to and following intravenous administration [...] context of the clinical situation (Re minnie- Ulysses et al, Spine 2001). Findings: (Prevalence in patients withou t low back pain), disc degeneration (decreased T2 signal, height loss, bulge ) (91%), disc T2-signal loss (83%), disc height loss (56%), disc bulge (64%), dis c protrusion (32%), annular fissure (38%). Abel Delvalle MD IMG MRI ORDERABLES documented in this encounter Visit Diagnoses Diagnosis Left thigh pain Pain in limb documented in this encounter Administered Medications Inactive Administered Medications - up to 3 most recent administrations Medication Order MAR Action Action Date Dose Rate Site gadoterate meglumine (DOTAREM) Given 09/16/2017 10:34 AM EST 14 mLs 0.5 mmol/mL injection 0.2 mL/kg 0.2 mL/kg/dose, Intravenous, ONCE PRN, 1 dose, Starting on Thu09/16/17 at 1034, Until Thu09/16/17 at 1034, Per Protocol, Routine documented in this encounter Care Teams Import Clerk Relationship Specialty Start Date End Date Susie López APRN PCP - General 05/21/15 06/30/19 documented as of this encounter
--- OUTSIDE RECORDS SUMMARY | 2022-07-25 10:50 | XMS_ITS | Encounter Summary ---
:1960 Author Organization [facility] [place] [address] Care Team Providers Name Role Phone Susie López APRN Primary Care Provider Encounter Details Date Type Department Care Team Description 06/24/2019 Telephone Pre-Admission [facility] [place] [address] Social History Tobacco Use Types Packs/Day [...] Carl PsyD (TeleHealth) [facility] [place] [address] (Wo rk) documented as of this encounter Visit Diagnoses Not on filedocumented in this encounter Care Teams Social Service Coordinator Relationship Specialty Start Date End Date Susie López APRN PCP - General 05/21/15 06/30/19 documented as of this encounter
--- OUTSIDE RECORDS SUMMARY | 2022-07-25 10:50 | XMS_ITS | Encounter Summary ---
:1960 Author Organization [facility] [place] [address] Care Team Providers Name Role Phone Susie López APRN Primary Care Provider Reason for Visit Reason Comments Follow Up Surgery left shoulder arthroscopic R TC repair Encounter Details Date Type Department Care Team Description 05/26/2019 Office Visit Orthopaedics at [facility], s/paola Verma shoulder arthroscopic RTC repair, SLAP type II repair, and SAD: 09/24/2018; Dr. Bauer; [facility] Rotator cuff impingement syndrome of lef t shoulder [address] [facility] [address] [facility] [place] [address] [phone] [place], [place] [address] Social History Tobacco Use Types [...] documented as of this encounter Progress Notes Kari Camara PA - 05/26/2019 1:30 PM EDT PATIENT NAME: eFly Shaw AGE: 58 y.o. MR#: [id number] DATE OF VISIT: 05/26/2019 DATE OF INJURY/ONSET: 08/26/16, Workers Compensation DATE OF SURGICAL PROCEDURE: 09/24/2018 SURGICAL PROCEDURE PERFORMED: Left Shoulder arthroscopic rotator cuff repair (supraspinatus), subacromial decompression, and SLAP Type II repair SURGEON: Christ Bauer MD CHIEF COMPLAINT: Post-op visit s/p shoulder arthroscopy HISTORY OF PRESENT ILLNESS Fely Shaw is a 58 y.o. female comes into clinic today for follow-up after undergoing an arthroscopic shoulder surgery. She admits a fall about 2 weeks. She slipped on a wet floor and her left elbow and inner upper arm impacted a counter top and she reports increased aching and discomfort down the anterolateral shoulder/upper arm since that time. She feels strength and motion has remained unchanged. She is recovering as expected from surgery with the exception of this recent fall. She is retiring as of 05/29/19. She is able to avoid pushing and pulling. She has pain in the lateral deltoid region andbiceps that is triggered with more strenuous activity. She has continued to advance her level of activity to include: work related responsibilities, light gardening, housework, and even tried a little paddle boarding when her shoulder feels well. Pain Medications: Prior to work she will take Ibuprofen 400 mg and at bedtime if needed. She continues use of Gabapentin 600 mg TID for chronic back pain. Physical Therapy: Micheal Kc, PT, every other week. She has been performing home exercises as guided by physical therapy. Working to improve strength with therabands and 2-5 lb dumbbells, scapular stabilization and ROM. Currently working more on pain management with massage and EStim due to the recent exacerbation. No x-rays were obtained during today's office [...] deltoid ROM: tolerates active forward flexion to 150 degrees (with aching discomfort above 130 degrees), abduction to 130 degrees (with aching pain above 85 degrees), external rotation to 80 degrees (increaseddiscomfort >65 degrees), internal rotation to T9 Strength: mild scapular [...] performed on09/24/[address] Bauer. The patient has been doing quite well with her post-op recovery. She recently had a mild set-back/exacerbation of pain due to a slip and fall that resulted in her left elbow/upper arm impacting a counter top. Examination findings are reassuring for maintaining range of motion and strength. She has findings of inflammation and rotator cuff impingement. Physical therapy to continue progressing active ROM, strengthening exercise program, and return to full functional level of activity. Once independent with exercises, physical therapy can be discontinued. Patient to perform home exercises daily. Use caution with pushing, pulling, twisting, lifting, [...] or concerns prior toyour next follow-up visit. Fely will call the office if the aching and radiating pain persists, and we will schedule her in for a subacromial cortisone injection. documented in this encounter Plan of Treatment Upcoming Encounters Date Type Specialty Care Team Description 08/07/2022 TH Visit [facility] Nahid Carl PsyD (TeleHealth) [facility] [address], [place] [address] (Wo rk) documented as of this encounter Visit Diagnoses Diagnosis s/p Left shoulder arthroscopic RTC repai r, SLAP type II repair, and SAD: 09/24/2018; Dr. Bauer Aftercare following surgery of the [facility], [facility] Rotator cuff impingement syndrome of lef t shoulder documented in this encounter Care Teams Die Cutting Machine Operator Relationship Specialty Start Date End Date Susie López APRN PCP - General 05/21/15 06/30/19 documented as of this encounter
--- OUTSIDE RECORDS SUMMARY | 2022-07-25 10:50 | XMS_ITS | Encounter Summary ---
:1960 Author Organization [facility] [place] [address] Care Team Providers Name Role Phone Rene, Susie JE Primary Care Provider Encounter Details Date Type Department Care Team Description 09/15/2017 Telephone Spine Center at [facility] [place] [address] Social History Tobacco Use Types Packs/Day Years [...] this encounter Miscellaneous Notes Telephone Encounter - Danni Blum - 09/15/2017 10:12 AM EST Called and spoke to patient to let her know that Dr. Delvalle cannot see her tomorrow, 09/16, after her MRI as he is going to the OR. However, Dr. Delvalle will call her to discuss the results once he has reviewed her MRI. Patient in agreement with plan. documented in this encounter Plan of Treatment Upcoming Encounters Date Type Specialty Care Team Description 08/07/2022 TH Visit [facility] Nahid Carl PsyD (TeleHealth) [facility] [address], [place] [address] (Wo rk) documented as of this encounter Visit Diagnoses Not on filedocumented in this encounter Care Teams Electronic System Engineer Relationship Specialty Start Date End Date Susie López APRN PCP - General 05/21/15 06/30/19 documented as of this encounter
--- OUTSIDE RECORDS SUMMARY | 2022-07-25 10:50 | XMS_ITS | Encounter Summary ---
:1960 Author Organization [facility] [place] [address] Care Team Providers Name Role Phone Susie López APRN Primary Care Provider Reason for Referral Diagnostic Test (Routine) - Closed Specialty Diagnoses / Procedures Referred By Contact Refer red To Contact Radiology Diagnoses Left bicipital tenosynovitis Incomplete tear of left rotator cuff Subacromial bursitis of left shoulder joint Impingement syndrome of shoulder region, unspecified laterality Qasim Amaya PA [facility] Rad Mri Procedures MRI Shoulder wo Contrast Left (Generic) [address] [place] [address] [place] [address] Referral ID Status Reason Start Date Expiration Date Visits V isits Requested Authorized [id number] Closed Specialty 04/05/2018 04/05/2019 1 1 Service Requested Reason for Visit Diagnostic Test (Routine) - Closed Specialty Diagnoses / Procedures Referred By Contact Refer red To Contact Radiology Diagnoses Left bicipital tenosynovitis Incomplete tear of left rotator cuff Subacromial bursitis of left shoulder joint Impingement syndrome of shoulder region, unspecified laterality Qasim Amaya PA [facility] Rad Mri Procedures MRI Shoulder wo Contrast Left (Generic) [address] [place] [address] [place] [address] Referral ID Status Reason Start Date Expiration Date Visits V isits Requested Authorized [id number] Closed Specialty 04/05/2018 04/05/2019 1 1 Service Requested Encounter Details Date Type Department Care Team Description 04/12/2018 Hospital Encounter MRI at [facility] Monique, Left bicipital tenosynovitis ; [facility] Incomplete tear of left rotator cuff; Drive [address] Subacromial bursitis of left shoulder joint; [place], [place] DR Impingement syndrome of shoulder region, unspecified laterality [address] [place], [place] [phone] [address] Social History Tobacco Use Types Packs/Day Years [...] 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 gabapentin (NEURONTIN) Take 2 capsules by 540 capsule 3 01/2603/04/2019 300 mg Capsule mouth 3 times daily. acetaminophen (TYLENOL) Take 2 tablets by 0 03/2403/25/2019 500 mg Tablet mouth every 8 hours. Around the clock until 04/02/17, and then as needed. DO NOT EXCEED 3000 mg tylenol in a 24 hour period. EPINEPHrine (EPIPEN) 0.3 Inject 0.3 mLs 2 each 1 02/19/ 017 03/15/2019 mg/0.3 mL Auto-Injector into the muscle once as needed. documented as of this encounter Plan of Treatment Upcoming Encounters Date Type Specialty Care Team Description 08/07/2022 TH Visit [facility] Nahid Carl PsyD (TeleHealth) [facility] [address], [place] [address] (Wo rk) documented as of this encounter Procedures Procedure Name Priority Date/Time Associated Diagnosis Comme nts MRI SHOULDER LEFT Routine 04/12/2018 12:09 PM Left bicipital R esults for this WO CONTRAST EDT tenosynovitis procedure are in Incomplete tear of the resul ts left rotator cuf f section. Subacromial bursitis of left shoulder joint Impingement syndrome of shoulder region, unspecified laterality documented in this encounter Results MRI Shoulder wo Contrast Left (Generic) (04/12/2018 12:09 PM EDT) Anatomical Region Laterality Modality Shoulder Left Magnetic Resonance Specimen (Source) Anatomical Location Collection Method / Collectio n Time Received Time / Laterality Volume Impressions 04/12/2018 1:03 PM EDT 1. ??Increased conspicuity of a focal near full-thickness articular sided tear versus full-thickness tear of the anteri or supraspinatus, measuring 12 mm AP. No tendon retraction. Underlying tendinosis of the supraspinatus, infraspinous, subscapularis is unchanged. 2. ??Similar appearance of rupture of th e proximal long head of the biceps tendon. 3. ??Glenohumeral osteoarthropathy with labral degeneration. Narrative 04/12/2018 1:03 PM EDT EXAMINATION: MRI SHOULDER WO CONTRAST LEFT (GENERIC) CLINICAL HISTORY: C/O pain, reduced ROM and weakness, Eval for extension of RCT TECHNIQUE: MR of the left shoulder was performed wi thout IV contrast using routine protocol. COMPARISON: Left shoulder radiograph 10/03/2016, MR le ft shoulder 10/08/2016 FINDINGS: Rotator cuff: Severe tendinosis of supra spinatus with mild tendinosis of the infraspinatus and subscapularis. Increas ed conspicuity of a near full-thickness articular sided tear versus full-thickne ss tear of the anterior fibers of infraspinatus, at or near the footprint (series 6, image 12 and series 7, image 5). This tear measures 12 mm AP (series 9, image 14). No appreciable tendon retraction. No high-grade tears of infra spinatus, teres minor, or subscapularis. Normal bulk and signal of the visualized rotator cuff muscles. Labrum: Degeneration of the superior lab rum with degenerative blunting of the posterior superior labrum. Bones, cartilage, joint: No acute fractu re. No glenohumeral joint effusion. Partial-thickness cartilage loss of the central and posterior glenoid and partial thickness cartilage thinning of the superomedial humeral head. Small marginal osteophytes of the glenohumeral joint. Biceps tendon: Attenuated appearance of the extra articular long head biceps tendon with nonvisualization of the intr a-articular long head of the biceps tendon, consistent with high-grade tear. Acromioclavicular joint: Similar appeara nce of chronic acromioclavicular osteoarthropathy. Bursae and fluid: Small amount of subacr omial/subdeltoid bursal fluid. Other extra articular: No solid or cysti c compressive lesion in the suprascapular or spinoglenoid notch. Procedure Note Eda Rowland MD - 04/12/2018Formattin g of this note might be different from the original. EXAMINATION: MRI SHOULDER WO CONTRAST LE FT (GENERIC) CLINICAL HISTORY: C/O pain, reduced ROM and weakness, Eval for extension of RCT TECHNIQUE: MR of the left shoulder was performed wi thout IV contrast using routine protocol. COMPARISON: Left shoulder radiograph 10/03/2016, MR le ft shoulder 10/08/2016 FINDINGS: Rotator cuff: Severe tendinosis of supra spinatus with mild tendinosis of the infraspinatus and subscapularis. Increas ed conspicuity of a near full-thickness articular sided tear versus full-thickne ss tear of the anterior fibers of infraspinatus, at or near the footprint (series 6, image 12 and series 7, image 5). This tear measures 12 mm AP (series 9, image 14). No appreciable tendon retraction. No high-grade tears of infra spinatus, teres minor, or subscapularis. Normal bulk and signal of the visualized rotator cuff muscles. Labrum: Degeneration of the superior lab rum with degenerative blunting of the posterior superior labrum. Bones, cartilage, joint: No acute fractu re. No glenohumeral joint effusion. Partial-thickness cartilage loss of the central and posterior glenoid and partial thickness cartilage thinning of the superomedial humeral head. Small marginal osteophytes of the glenohumeral joint. Biceps tendon: Attenuated appearance of the extra articular long head biceps tendon with nonvisualization of the intr a-articular long head of the biceps tendon, consistent with high-grade tear. Acromioclavicular joint: Similar appeara nce of chronic acromioclavicular osteoarthropathy. Bursae and fluid: Small amount of subacr omial/subdeltoid bursal fluid. Other extra articular: No solid or cysti c compressive lesion in the suprascapular or spinoglenoid notch. IMPRESSION 1. Increased conspicuity of a focal near full-thickness articular sided tear versus full-thickness tear of the anteri or supraspinatus, measuring 12 mm AP. No tendon retraction. Underlying tendinosis of the supraspinatus, infraspinous, subscapularis is unchanged. 2. Similar appearance of rupture of the proximal long head of the biceps tendon. 3. Glenohumeral osteoarthropathy with la bral degeneration. Qasim KUHN [facility] MRI ORDERABLES documented in this encounter Visit Diagnoses Diagnosis Left bicipital tenosynovitis Incomplete tear of left rotator cuff Partial tear of rotator cuff Subacromial bursitis of left shoulder dariusz int Impingement syndrome of shoulder region, unspecified laterality documented in this encounter Care Teams Spanish Moss Picker Relationship Specialty Start Date End Date Susie López APRN PCP - General 05/21/15 06/30/19 documented as of this encounter
--- OUTSIDE RECORDS SUMMARY | 2022-07-25 10:50 | XMS_ITS | Encounter Summary ---
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 documented as of this encounter Progress Notes Charlene Zuniga MD - 09/10/2018 11:59 PM EST Mammo normal. documented in this encounter Plan of Treatment Upcoming Encounters Date Type Specialty Care Team Description 08/07/2022 TH Visit [facility] Nahid Carl PsyD (TeleHealth) [facility] [address] [place], [place] [address] (Wo rk) documented as of this encounter Procedures Procedure Name Priority Date/Time Associated Diagnosis Comme nts MAMMO SCREENING CAD Routine 09/10/2018 10:32 AM Visit for scre ening Results for this AND SHERMAN BILATERAL EST mammogram procedure are in the results section. documented in this encounter Results Mammo Screening Cad and Sherman Bilateral (09/10/2018 10:32 AM EST) Anatomical Region Laterality Modality Breast Bilateral Mammography Specimen (Source) Anatomical Location Collection Method / Collectio n Time Received Time / Laterality Volume Narrative 09/10/2018 10:43 AM EST BILATERAL MAMMOGRAPHY REASON FOR EXAM: [...] CONCLUSION: No mammographic evidence of malignancy. RECOMMENDATION: Medical organizations ag ree that annual screening mammography beginning at age 40 saves th e most lives. The risks of screening are negligible compared to dyi ng from breast cancer or suffering from more aggressive treatment required when detected at a later stage. No woman is at low risk for breast cancer. Some women, because of their family history, a genetic tendency, or c ertain other factors, should be screened with breast MRI along with mamm ograms. (The number of women who fall into this category is very small). The patient and health care provider should discuss the patient hist ory and decide if earlier screening and breast MRI are appropriate . Screening should continue as long as a woman is in good health and is expected to live 10 years or longer. Screening mammography may not de tect 10-15% of breast cancers. Women should report any breast changes t o a health care provider right away. A result letter has been sent to this daphnie aguilera by [facility]. BIRADS CATEGORY 1: NEGATIVE Susie López APRN IMG MAMMO ORDERABLES documented in this encounter Visit Diagnoses Diagnosis Visit for screening mammogram Other screening mammogram documented in this encounter Care Teams Gas Treater Relationship Specialty Start Date End Date Susie López APRN PCP - General 05/21/15 06/30/19 documented as of this encounter
--- OUTSIDE RECORDS SUMMARY | 2022-07-25 10:50 | XMS_ITS | Encounter Summary ---
:1960 Author Organization [facility] Address [place] [address] Care Team Providers Name Role Phone None Primary Care Provider Unavailable Reason for Visit Reason Comments Post Op ORIF RIGHT ankle lateral and medial malleolus - DOS 06/27/2019 Encounter Details Date Type Department Care Team Description 07/11/2019 Office Visit Orthopaedics at [facility] Clo sed bimalleolar Morgan Toussaint MD fracture of right [address] [facility] [place] [address] [place], emir [phone] ORTHOPAEDIC encounter SURGERY [place] [address] Social History Tobacco Use Types Packs/Day Years [...] Pressure - - Pulse - - Temperature 36.5 ??C (97.7 ??F) 07/11/2019 11:06 AM EDT Respiratory Rate - - Oxygen Saturation - - Inhaled Oxygen Concentration - - Weight - - Height - - Body Mass Index - - documented in this encounter Progress Notes Royce Joseph - 07/11/2019 10:30 AM EDT REVIEW OF SYMPTOMS: Constitutional: Denies fever, chills, fatigue Cardiovascular: Denies chest pain Respiratory: Denies shortness of breath Gastrointestinal: Denies nausea, vomiting, diarrhea, constipation or abdominal pain Neurovascular: Admits Numbness across the top of the foot . Denies tingling Musculoskeletal: Denies pain. Psychiatric: Mood and affect appropriate Philippe Martinez MD - 07/11/2019 10:30 AM EDT Orthopaedic Surgery Post-Operative Clinic Note Surgery: R Ankle ORIF Date of surgery: 06/27/19 The patient follows up 2 weeks status post the above surgery. The patient has been doing well postoperatively. The patient reports the following issues: [none] The patient denies fevers, chills, drainage from the incisions, wound healing problems, night sweats. Pain has been well controlled. Objective: Awake, alert, no acute distress. RLE: APF/ADF/EHL/FHL intact 2+ dp pulse Incisions well-healed. No erythema/drainage. Imaging: XR of the right ankle show no change in alignment of the hardware and fractures which remain well-aligned. Assessment/plan: Fely Shaw is a 59 y.o. female who follows up status post the above surgery. The patient is doing well NWB She will be traveling cross country for the Next 4 weeks. She will get XR 3 views of the R ankle in [place] and send me the pictures via text or email. She will then likely begin weight bearing 25% per week in her boot until full WBAT, then wean out ofcrutches, then out of boot. Aspirin for the next 4 weeks for DVT ppx given her long road trip planned. Olamide Rodriguez RN - 07/11/2019 10:30 AM EDT Patient is sp RIGHT ORIF bimalleolar ankle fracture performed 06/27/[address] Martinez. Patient arrived for splint off then x-ray before appointment with Dr. Martinez. Patient was seated for removal of splint in comfortable position. Removed plaster splint and washed patient's foot. Skin appears dry/pink/intact. No indications of redness, irritation, drainage, or warmth. Incision edges are well approximated. Circulation and sensation are intact. Patient able to wiggle toes appropriately. Patient tolerated the procedure well and was sent off to x-ray. REVIEW OF SYMPTOMS: Constitutional: Denies fever, chills, fatigue Cardiovascular: Denies chest pain Respiratory: Denies shortness of breath Gastrointestinal: Denies nausea, vomiting, diarrhea, constipation or abdominal pain Neurovascular: Admits Numbness across the top of the foot . Denies tingling Musculoskeletal: Denies pain. Psychiatric: Mood and affect appropriate documented in this encounter Plan of Treatment Upcoming Encounters Date Type Specialty Care Team Description 08/07/2022 TH Visit [facility] Nahid Carl PsyD (TeleHealth) [facility] [place] [address] (Wo rk) documented as of this encounter Visit Diagnoses Diagnosis Closed bimalleolar fracture of right ank le with routine healing, subsequent encounter documented in this encounter Care Teams Assistant Professor In Family Studies Relationship Specialty Start Date End Date None PCP - General 07/11/19 09/14/19 None documented as of this encounter
--- OUTSIDE RECORDS SUMMARY | 2022-07-25 10:50 | XMS_ITS | Encounter Summary ---
:1960 Author Organization [facility] [place] [address] Care Team Providers Name Role Phone Rene, Susie JE Primary Care Provider Encounter Details Date Type Department Care Team Description 04/14/2018 Orders Only Occupational Medicine at Mateo Westfall APRN [facility] [place] [address] [place] [address] [phone] Social History Tobacco Use Types Packs/Day Years [...] and Spine Center Nahid Carl PsyD (TeleHealth) [facility] [address] [place] [address] (Wo rk) documented as of this encounter Procedures Procedure Name Priority Date/Time Associated Diagnosis Comme nts MISC SEROLOGY Routine 04/14/2018 6:55 AM Results for this EDT procedure are i n the results section . documented in this encounter Results Misc Serology (04/14/2018 6:55 AM EDT) [facility] Method Time Signature Miscellaneous Blood PEG Serology Specimen [facility] Miscellaneous T-SPOT PEG Serology Test [facility] Miscellaneous T-Spot TB: Positive PEG Serology Result see scanned document [facility] Specimen Anatomical Collection Method Collection Time Receive d Time (Source) Location / / Volume Laterality Specimen of Other / Unknown 04/14/2018 6:55 AM 2017 unknown material EDT 12:23 PM ED T (specimen) Narrative This result has an attachment that is no t available. Iza Westfall APRN IMMUNOLOGY ORDERABLES Performing Organization Address City/State/[place] [address] documented in this encounter Visit Diagnoses Not on filedocumented in this encounter Care Teams [employer] Business [employer] Officer Relationship Specialty Start Date End Date Susie López APRN PCP - General 05/21/15 06/30/19 documented as of this encounter
--- OUTSIDE RECORDS SUMMARY | 2022-07-25 10:50 | XMS_ITS | Encounter Summary ---
:1960 Author Organization [facility] [place] [address] Care Team Providers Name Role Phone Susie López JE Primary Care Provider Encounter Details Date Type Department Care Team Description 11/24/2018 Abstract Madelin Toussaint Conversion Apd Conversion, Flowsheet Results [place], [place] [address] Social History Tobacco Use Types Packs/Day [...] Sign Reading Time Taken Comments Blood Pressure 141/78 11/24/2018 9:32 AM EST Sourced f rom APD Conversion Pulse - - Temperature - - Respiratory Rate - - Oxygen Saturation - - Inhaled Oxygen Concentration - - Weight - - Height - - Body Mass Index - - documented in this encounter Plan of Treatment Upcoming Encounters Date Type Specialty Care Team Description 08/07/2022 TH [facility] Nahid Carl PsyD (TeleHealth) [facility] [address] [place] [address] (Wo rk) documented as of this encounter Visit Diagnoses Not on filedocumented in this encounter Care Teams Hydro Sprayer Operator Relationship Specialty Start Date End Date Susie López APRN PCP - General 05/21/15 06/30/19 documented as of this encounter
--- OUTSIDE RECORDS SUMMARY | 2022-07-25 10:50 | XMS_ITS | Encounter Summary ---
:1960 Author Organization [facility] [place] [address] Care Team Providers Name Role Phone Rene, [...] Expiration Date Visits Requ ested Visits Authorized [id number] 1 1 Encounter Details Date Type Department Care Team Description 06/27/2019 Surgery Operating Room Jong Caceres MD ORIF BIMALLEOLAR ANKLE Mora Day [facility] FX. (WRVU 10.62) [address] [place] [address] ORTHOPAEDIC SURGERY [phone] [place], [place] [address] (Wo rk) Social History Tobacco [...] Sign Reading Time Taken Comments Blood Pressure 135/72 06/27/2019 3:10 PM EDT Pulse 80 06/27/2019 2:46 PM EDT Temperature 36.5 ??C (97.7 ??F) 06/27/2019 2:46 PM EDT Respiratory Rate 10 06/27/2019 3:10 PM EDT Oxygen Saturation 99% 06/27/2019 3:10 PM EDT Inhaled Oxygen Concentration - - [...] otherwise instructed by the surgeon or physician porcelain buildup assistant. o Non-weight bearing status may continue [...] will be decided by your physician, physician porcelain buildup assistant and physical therapist. ??? To be [...] until cleared by your physician or physician porcelain buildup assistant. o Once you return, you may need modified duty initially. Home Care Instructions: ??? Good personal hygiene and hand washing is recommended at home as they are critical to preventingillness and infection. If soap and water are unavailable, you can use an alcohol-based hand head pastry chef to clean your hands or exposed fingers. [...] - Please avoid the use of these xvsu-eso-vdpksxc medications if you have an allergy or sensitivity to them. ??? Your throat may be a little sore for the first 2-3 days following surgery; throat lozenges may be helpful. ??? Pain medications can cause you to become constipated. o Stool softeners or mild laxatives are encouraged and may be needed for the duration of pain medication use. o Iezb-erf-ktwnkhv options: Colace 100 mg twice daily or [...] pleased you have decided to come [facility] and we look forward [...] Martinez MD - 06/27/2019 2:46 PM EDT [facility] Operative Note [address] [address] Patient Name: Fely Shaw : [id number] MR#: [id number] Case Date: 06/27/2019 Case Scheduled Time: 1315 Surgeon: Surgeon(s) and Role: * Philippe Martinez MD - Primary * Qasim Amaya PA - Physician Web Content Manager Preoperative diagnosis: right bimalleolar ankle fracture Postoperative [...] is a 59-year-old female who presented to [facility] with a right ankle fracture after a [...] the pre-op holding area where a purple ivanof bay was placed on the correct operative right [...] and performed a provisional reduction using a dritr-gh-isrgp clamp. I then placed 2 guidewires for [...] Infection Bundle used? N/A Qasim Amaya (Physician Web Content Manager [[id number]]) worked under my direction for the duration of the operative session. The porcelain buildup assistant adequately prepped the operative site and maintained the best possible exposure of anatomy incident to the procedure. Philippe Martinez MD 06/27/2019 documented in this encounter Plan of Treatment Upcoming Encounters Date Type Specialty Care Team Description 08/07/2022 TH Visit [facility] Nahid Carl PsyD (TeleHealth) [facility] [place], [place] [address] (Wo rk) Scheduled Orders Name Type [...] Organization Address City/State/ZIP Code Phon e Number [place], [place] US Imaging for Injection Femoral Nerve (APD Only) (06/27/2019 11:49 AM EDT) Specimen (Source) Anatomical Location Collection Method / Collectio n Time Received Time / Laterality Volume Narrative Dicom, Auditing User - 06/27/2019 11:49 AM EDT This exam is auto-finalizing. No interpr etation was done. Jerome Alanis CRNA Gianna US PROC ORDERABLES SCAN DOC: TELEMETRY STRIPS (06/27/2019 12:00 AM EDT) Narrative 06/27/2019 12:00 AM EDT This result has an attachment that is no t available. Ordered by an unspecified provider. Scanning Provider MEDIA MGR SCAN EXT ORDR/RSLT documented in this encounter Visit Diagnoses Diagnosis Aftercare following surgery for injury a nd trauma Acute right ankle pain documented in this encounter Administered Medications Inactive [...] PRN, S tarting 06/27/19 at 1507, Until 06/27/19 at 1642, Pain, PACU Recovery, Routine documented in this encounter Care Teams Rural Electrification Engineer Relationship Specialty Start Date End Date Susie López APRN PCP - General 05/21/15 06/30/19 documented as of this encounter
--- OUTSIDE RECORDS SUMMARY | 2022-07-25 10:50 | XMS_ITS | Encounter Summary ---
:1960 Author Organization [facility] [place] [address] Care Team Providers Name Role Phone Susie López APRN Primary Care Provider Encounter Details Date Type Department Care Team Description 07/15/2018 External Results Laboratory at Christ Quick MD Day [address] [place] [address] [facility] [phone] [place], [place] [address] (Wo rk) Social History Tobacco [...] Center Nahid Carl PsyD (TeleHealth) [facility] [address] [place] [address] (Wo rk) documented as of this encounter Procedures Procedure Name Priority Date/Time Associated Diagnosis Comme nts HEMOGRAM Routine 07/15/2018 10:00 AM Results for this EDT procedure are i n the results section. BASIC METABOLIC Routine 07/15/2018 10:00 AM Resul ts for this PANEL (NON-FASTING) EDT procedur e are in the results section. documented in this encounter Results (ABNORMAL) Basic Metabolic Panel (non-fasting) (07/15/2018 10:00 AM EDT) Analysis Performed At Patho logist Time Signature Sodium 141 135 - 145 [facility] (External mmol/L [facility]) Potassium 4.0 3.5 - 5.1 [facility] (External mmol/L [facility]) Chloride 104 98 - 107 [facility] (External mmol/L [facility]) CO2 28 21 - 32 [facility] (External mmol/L [facility]) Anion Gap 13.0 9 - 16.5 [facility] (External mmol/L [facility]) Osmolality 272 261 - 280 [facility] (External mosm/kg [facility]) Glucose Lvl 100 74 - 106 [facility] (External mg/dL [facility]) BUN 13 7 - 18 [facility] (External mg/dL [facility]) Creatinine 0.86 0.55 - [facility] (External 1.02 mg/dL [facility]) BUN/Cre Ratio 15.1 7.0 - 25.0 [facility] (External [facility]) Estimated GFR > 60 mL/min [facility] (External [facility]) Comment: Estimated GFR is to assist you in evalua ting your patient and optimizing drug dosing. Per NKDBP, they classify normal renal function as any GFR > 60 ml/min/1.72m2; chronic kidney disea se when GFR <60, and renal failure when GFR <15. ??This calcu lation may not be valid for patients with atypical muscle mass (very lean or obese), acute renal failure, and in allison ents with diabetic kidney disease. Calcium 9.1 (External Lab) 8.5 - 10.1 mg/dL ALIC E [facility] Specimen Anatomical Collection Method Collection Time Receive d Time (Source) Location / / Volume Laterality 07/15/2018 10:00 07/15/2018 AM EDT 12:40 PM EDT Christ Bauer MD CHEMISTRY ORDERABLES Performing Organization Address City/[facility]/ZIP [facility] Phon e Number M[facility] [address] [place], [place] [address] (ABNORMAL) Hemogram (07/15/2018 10:00 AM EDT) [facility] Method Time Signature WBC 5.2 4.0 - 10.0 [facility] (External 10^3/uL [facility]) RBC 4.72 3.93 - [facility] (External 5.22 [facility]) 10^6/uL Hemoglobin 14.0 11.2 - [facility] (External 15.7 g/dL [facility]) Hematocrit 42.4 34.0 - [facility] (External 45.0 % [facility]) MCV 89.8 79.0 - [facility] (External 94.0 fL [facility]) MCH 29.7 26.6 - [facility] (External 32.2 pg [facility]) MCHC 33.0 32.0 - [facility] (External 36.5 g/dL [facility]) RDWCV 11.9 10.9 - [facility] (External 14.4 % [facility]) RDWSD 38 35 - 46 fL [facility] (External [facility]) Platelets 229 145 - 370 [facility] (External 10^3/uL [facility]) MPV 9.6 9.0 - 12.0 [facility] (External fL [facility]) Periph Smear NO [facility] Rev (External [facility]) Specimen Anatomical Collection Method Collection Time Receive d Time (Source) Location / / Volume Laterality 07/15/2018 10:00 07/15/2018 AM EDT 12:40 PM EDT Christ Bauer MD HEMATOLOGY ORDERABLES Performing Organization Address City/[facility] Phon e Number M[facility] [address] [place], [place] [address] documented in this encounter Visit Diagnoses Not on filedocumented in this encounter Care Teams Heat Engineering Teacher Relationship Specialty Start Date End Date Susie López APRN PCP - General 05/21/15 06/30/19 documented as of this encounter
--- OUTSIDE RECORDS SUMMARY | 2022-07-25 10:51 | XMS_ITS | Encounter Summary ---
:1960 Author Organization [place] [address] Care Team Providers Name Role Phone Susie López APRN Primary Care Provider Reason for Visit Reason Comments Pre-op Exam Encounter Details Date Type Department Care Team Description 03/13/2017 Office Visit [facility] Janett Valle, Pre operative general physical examination; Primary Care at Cervical disc disorder with radiculopath y of mid-cervical region [address] [place] [address] [facility] [address] [place] [place] OCCUPATIONAL [address] MEDICINE [phone] [place], [place] [address] Social History Tobacco Use Types [...] Sign Reading Time Taken Comments Blood Pressure 131/67 03/13/2017 1:02 PM EDT Pulse 87 03/13/2017 1:02 PM EDT Temperature - - Respiratory Rate - - Oxygen Saturation 100% 03/13/2017 1:02 PM EDT Inhaled Oxygen Concentration - - Weight 73.5 kg (162 lb) 03/13/2017 1:02 PM EDT Height 170.2 cm (5' 7) 03/13/2017 1:02 PM EDT Body Mass Index 25.37 03/13/2017 1:02 PM EDT documented in this encounter Progress Notes Janett Valle MD - 03/13/2017 1:00 PM EDT Chief Complaint Patient presents with ??? Pre-op Exam Subjective Fely Shaw is a 56 y.o. female in today for pre-op exam. She is scheduled for anterior cervical fusion on 03/23/17. She suffered an injury slipping on ice while walking into work on 08/26/16. She fell back on an outstretched left arm. She had a biceps rupture and partial rotator cuff tear. She has had progressively worsening pain in the left shoulder blade and numbness in the 4th and 5th digits, weakness in her thumb. Prior to the injury she was very healthy. No history of hypertension,heart disease, asthma, COPD, sleep apnea. She is able to walk 2 flights of stairs without stopping. She has had surgery under general anesthesia in the past without complication. Patient Active Problem List Diagnosis Code ??? 12/11/10 ARTHROSCOPY KNEE,MENISCECTOMY SINGLE WITH SHAVING OSC /LEFT/LATERAL M25.562 ??? Left knee pain M25.562 ??? Finger sprain S63.619A ??? Lumbar strain S39.012A ??? Lower back pain M54.5 ??? Lumbosacral spondylosis without myelopathy M47.817 ??? Acute pain of left shoulder M25.512 ??? Biceps rupture, proximal S46.119A ??? Neck pain M54.2 ??? Cervical disc disorder with radiculopathy of mid-cervical region M50.120 ??? Left-sided muscle weakness M62.81 ??? Milium L72.0 Current Outpatient Prescriptions: ??? gabapentin (NEURONTIN) 300 mg Capsule, Take 2 capsules by mouth 3 times daily., Disp: 540 capsule, Rfl: 3 ??? EPINEPHrine (EPIPEN) 0.3 mg/0.3 mL Auto-Injector, Inject 0.3 mLs into the muscle once as needed., Disp: 2 each, Rfl: 1 ??? vitamin E 400 unit Capsule, Take 400 Units by mouth 2 times daily., Disp: , Rfl: ??? cetirizine (ZYRTEC) 10 mg Tablet, Take 10 mg by mouth daily., Disp: , Rfl: ??? BLACK COHOSH ORAL, Take 1 tablet by mouth daily., Disp: , Rfl: ??? acetaminophen (TYLENOL) 500 mg Tablet, Take 1,000 mg by mouth every 6 hours as needed for Pain.,Disp: , Rfl: ??? Calcium 500 mg Tablet, Take 1,000 mg by mouth daily., Disp: , Rfl: ??? meloxicam (MOBIC) 7.5 mg Tablet, Take 1 tablet by mouth 2 times daily as needed. (Patient not taking: Reported on 03/13/2017), Disp: 90 tablet, Rfl: 3 Allergies Allergen Reactions ??? Allergen Wka-Cuhbo-Ibgqc Bee Anaphylaxis ??? Venom-Wasp Anaphylaxis ??? Jpbjq-Ytvbg-Cjcam Hornet Anaphylaxis ??? Venom-Yellow Hornet Anaphylaxis ??? Venom-Yellow Jacket Anaphylaxis ??? Cis Free Text Allergy food dyes - Hives( gel type medication- bright red and yellow) ??? Nexium [Esomeprazole Magnesium] Other (See Comments) Light headed ??? Norflex [Orphenadrine Citrate] Nausea Only Dizziness myD-H Primary Care 03/12/2017 PROMIS 10-Health in general Very Good PROMIS 10-Quality of life Very Good PROMIS 10-Physical health Very Good PROMIS 10-Mental health Excellent PROMIS 10-Satisfaction with social activities Very Good PROMIS 10-Ability to carry out social activities Fair PROMIS 10-Ability to carry out physical activities Moderately PROMIS 10-Bothered by emotional problems Never PROMIS 10-Rate of fatigue Mild PROMIS 10-Rate of pain 4 PROMIS 10- Physical Health Score 44.9 PROMIS 10- Mental Health Score 59 REVIEW OF SYSTEMS 03/12/2017 Constitutional Hot flashes, Pain Ear / nose / throat / mouth - Eyes Dry eyes Respiratory None of the above Cardiovascular None of the above Gastrointestinal None of the above Skin, hair None of the above Musculoskeletal Back pain Neurological Numbness, tingling, Muscular weakness Hematologic / Lymphatic - Genitourinary None of the above No flowsheet data found. Breast Cancer Risk (DARRION) Scores 08/03/2016 Lifetime Risk of Patient 14 Average Lifetime Risk 10 5-Year Risk of Patient 2.2 Average 5-Year Risk 1.5 Recommend Genetic Risk Assessment w/B-RST 2 (If FH+ for breast ca<50 or ovarian ca) PHQ-9 QUESTIONNAIRE (AMB) 03/12/2017 PHQ - 9 Score (Clinic) - Little [...] difficult are the problems (Clinic) - Objective Vitals: 03/13/17 1302 BP: 131/67 Pulse: 87 General appearance: alert, appears stated age, cooperative and no distress Throat: lips, mucosa, and tongue normal; teeth and gums normal, oropharynx clear Lungs: clear to auscultation bilaterally Heart: regular rate and rhythm, S1, S2 normal, no murmur, click, rub or gallop Abdomen: soft, non-tender; bowel sounds normal; no masses, no organomegaly Extremities: no lower extremity edema Assessment 1. Preoperative general physical examination 2. Cervical disc disorder with radiculopathy of mid-cervical region Patient is medically optimized for surgery. Hold meloxicam prior to surgery JANETT VALLE MD documented in this encounter Plan of Treatment Upcoming Encounters Date Type Specialty Care Team Description 08/07/2022 TH Visit [facility] Nahid Carl PsyD (TeleShippter) [facility] [place] [address] (Wo rk) documented as of this encounter Visit Diagnoses Diagnosis Preoperative general physical examinatio n Other specified pre-operative examinatio n Cervical disc disorder with radiculopath y of mid-cervical region Brachial neuritis or radiculitis nos documented in this encounter Care Teams Pinmaker Relationship Specialty Start Date End Date Susie López APRN PCP - General 05/21/15 06/30/19 documented as of this encounter
--- OUTSIDE RECORDS SUMMARY | 2022-07-25 10:51 | XMS_ITS | Encounter Summary ---
:1960 Author Organization [facility] [place] [address] Care Team Providers Name Role Phone ReneSusie APRN Primary Care Provider Reason for Visit Reason Onset Date Comments Other 04/30/2017 Encounter Details Date Type Department Care Team Description 04/30/2017 Telephone Spine Center at [facility] [place] [address] Social History Tobacco Use Types Packs/Day [...] this encounter Miscellaneous Notes Telephone Encounter - Jennifer Hinkle MSW - 04/30/2017 3:08 PM EDT OFFICE OF CARE MANAGEMENT [facility] Telephone call to Ms. Shaw at the request of Dawn Vee RN to assist with completion of ShortTerm Disablity paperwork from [facility] [phone] insured id# [id number]. Ms. Colin erazo has spoken with someone from the [employer] and now feels things are straight and this paperwork does NOT need to be completed. Paperwork recycled and she is encouraged to re contact us at any time and wished her well in her continued recovery. documented in this encounter Plan of Treatment Upcoming Encounters Date Type Specialty Care Team Description 08/07/2022 TH Visit [facility] Nahid Carl PsyD (TeleHealth) [facility] [address], [place] [address] (Wo rk) documented as of this encounter Visit Diagnoses Not on filedocumented in this encounter Care Teams Slasher Runner Relationship Specialty Start Date End Date Susie López APRN PCP - General 05/21/15 06/30/19 documented as of this encounter
--- OUTSIDE RECORDS SUMMARY | 2022-07-25 10:51 | XMS_ITS | Encounter Summary ---
:1960 Author Organization [facility] [place] [address] Care Team Providers Name Role Phone Susie López APRN Primary Care Provider Encounter Details Date Type Department Care Team Description 2017 Office Visit Occupational Therapy Carlota Rahman Le ft-sided muscle weakness; at [facility] OT Cervical radiculopathy [address] [place] [address] CENTER [phone] PHYSICAL MEDICINE & [place] [address] Social History Tobacco Use Types Packs/Day Years [...] documented as of this encounter Progress Notes Carlota Rahman OT - 2017 10:30 AM EDT Images from the original note were not included. OCCUPATIONAL THERAPY DISCHARGE SUMMARY Referral Source: Abel Delvalle MD Next MD Follow-up: PRN Total Treatment time: 50 Minutes Timed Code Treatment Time: 50 minutes OCCUPATIONAL PROFILE: Fely Shaw is a 57 y.o. year old Right hand dominant female who slipped andfell at work in 07/2016 with resultant left rotator cuff proximal biceps rupture, and cervical spondylosis of left upper extremity radiculopathy in a C7-T1. Please see MRI report completed on 10/30/16 for more details. Fely has previously received occupational therapy services and was placed on hold from OT pending surgical consult. Fely returns to occupational therapy to re-establish care after a change in medical status having underwent anterior cervical diskectomy and arthrodesis C7-1 and Iliac Crest Bone Graft on 03/23/2017. Fely Shaw has been referred back to Occupational Therapy after this procedure for evaluation and treatment. Patient presents today alone. 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 Left-sided muscle weakness OCCUPATIONAL PERFORMANCE DEFICITS: Fely Shaw is limited with current performance due to limited mobility/range of motion, limited strength and limited coordination. Global Mental Function: With gross screening of patient???s global mental functions, patient demonstrates orientation to person, place, time, and situation. Patient???s affect/behavior is appropriate and cooperative today. Patient Specific Functional Scale (PSFS) (unable to perform 0/10 - Able to perform without difficulty 10/10) Activity At Evaluation 01/08/17 02/04/17 03/05/17 04/21/17 05/14/17 06/05/17 1.) Donning shirts overhead 3 9 6 10 10 9 10 2.) Washing hair 5 5 5 8 10 9 8 3.) sewing 7 6 4 6-7 5-6 7 9 4.) Cooking; handling heavy pots and pans 3 4 4 6 7 6 9 5.) opening containers 5 5 5 6 7 8 9 6.) lifting/sliding/pushing/pulling at work >/= 50 1 1 2 6 0 2 5 Average Score: 4 5.8 5.2 7.2 6.5 6.8 8.3 Disabilities of the Arm, Shoulder, and Hand (DASH): DASH Score: 12/25/16: 42.5 04/21/17: 25.8 06/05/17: 19.2 Standardized measurement of functional limitation related to an upper extremity disability, using 0-100 scale indicating percent of perceived functional impairment. Pain: (Assessed using the visual analog scale) At Rest: 0/10 pain With Activity: 0-3/10 pain COORDINATION: 9 Hole Peg Test RIGHT LEFT LEFT 01/08/17 LEFT 02/04/17 LEFT 03/05/17 Trial #1 18 seconds 18 seconds with 3 stained glass window designer slips/ dropped pegs 18 seconds with 1 stained glass window designer slip 18 seconds with 1 stained glass window designer slip 18 seconds with 1grip slip Mean for age/gender 17.86 seconds 19.48 seconds 19.48 seconds 19.48 seconds 19.48 seconds Mean and Standard Deviation of Male (n = 314) & Female Participant's (n = 389) Female 21-25 43 16.04 17.21 1.82 1.55 26-30 33 15.90 16.97 1.91 1.77 31-35 32 16.69 17.47 1.70 2.13 36-40 35 16.74 18.16 1.95 2.08 41-45 37 16.54 17.64 2.14 2.06 46-50 45 17.36 17.96 2.01 2.30 51-55 42 17.38 18.92 1.88 2.29 56-60 31 17.86 19.48 2.39 3.26 56-60 31 17.86 19.48 2.39 3.26 61-65 29 18.99 20.33 2.18 2.76 66-70 31 19.90 21.44 3.15 3.97 71+ 31 22.49 24.11 6.02 5.66 All Female 389 17.67 18.91 3.17 3.44 (Carolyn et al, 2003; n = 703 healthy adults; age range = 21 - 70+ years, Healthy Sample Norms) Active Range of Motion: Measured in degrees of active motion with goniometer Right Left Left 01/08/17 Left 01/13/17 Left 03/05/17 Left 04/21/17 Left 06/05/17 Shoulder Extension/Flexion 58/155 40/98 6-7/10 pain with ulnar nerve symptoms 40/88 4/10 pain 50/115 5/10 60/160 60/160 Shoulder Abduction 150 46 57 7/10 pain 112 4/10 pain 142 4-5/10 pain 162 4/10 pain Shoulder Internal/External Rot. WFL 62 external rotation 6 inches from inferior angle of contralateral scapula 60 external rotation 7 inches from inferior angle of scapula 50 external rotation 4/10 pain 3.5 inches from inferior angle of scapula 47 external rotation 4/10 pain 0.5 inches from inferior angle of scapula 65 external rotation 7/10 To T5 5/10 pain 70 degrees of external rotation 3/10 pain Elbow Extension/Flexion 0/151 -3/148 0/150 0/150 0/148 0/148 Wrist Extension/Flexion 70/70 45/70 65/70 65/65 70/70 70/75 70/75 Ulnar/Radial Deviation 40/30 30/30 35/25 35/30 40/30 40/25 Pronation/Supination 90/90 90/90 90/90 90/90 90/90 85/90 Measured in degrees of active motion with goniometer and/or distance measured from finger tip to thedistal palmar crease (DPC) Digits Right: DPC Thumb DPC Index Finger DPC Middle Finger DPC Ring Finger DPC Small Finger DPC Digits Left: DPC Thumb DPC Index Finger DPC Middle Finger DPC Ring Finger DPC Small Finger DPC STRENGTH: Manual Muscle Testing (MMT) Right Left Left 01/13/17 Left 03/05/17 Left 04/21/17 Left 05/14/17 Left 06/05/17 MMT RIGHT MMT Elbow Flexion 4+/5 3/5 1-2/ 4/5 1/10 neck pain 4/5 0/10 neck pain 4/5 0/10 neck pain 4/5 0/10 pain 4/5 0/10 pain Elbow Extension 4/5 2/5 4/10 pain 3+/5 3+/5 3+/5 3+/5 3+/5 Supination 5/5 3/5 4/5 3+/5 4/5 5/5 5/5 Pronation 5/5 3/5 4/5 1/10 pain 3+/5 4/5 5/5 5/5 Wrist Extension 5/5 2/5 3/5 4/5 3+/5 4/5 4/5 Wrist Flexion 5/5 3/5 3+/5 3+/5 3+/5 3+/5 4/5 Wrist ulnar deviation 4/5 3+/5 3+/5 4-/5 4-/5 4/5 4/5 Wrist radial deviation 4/5 3/5 3/5 4-/5 4-/5 4/5 4/5 HAND STRENGTH: Manual Muscle Testing (MMT) Right 12/25/16 Left 12/25/16 Left 03/05/17 Left 04/21/17 Left 05/14/17 Left 06/05/17 MMT MMT Opponens pollicis 5/5 3-/5 4/5 4/5 4/5 4/5 Flexor Pollicis Longus 5/5 3+/5 4/5 4/5 4/5 5/5 Lumbricals 1 and 2 5/5 3/5 5/5 5/5 5/5 5/5 Lumbricals 3 and 4 5/5 2/5 3+/5 4-/5 4/5 4/5 Adductor Pollicis 5/5 3-/5 3+/5 3+/5 4/5 4/5 Dorsal interossei 5/5 3-/5 4-/5 4-/5 4/5 4-/5 Palmar interossei 5/5 3-/5 3+/5 3+/5 4-/5 4/5 Abductor pollicis longus 5/5 3-/5 4/5 4/5 4/5 4/5 Abductor pollicis brevis 4/5 3-/5 4/5 4/5 4/5 4/5 Extensor pollicis longus 4/5 2/5 3+/5 3+/5 3+/5 4-/5 Extensor pollicis brevis 4/5 2/5 3+/5 3+/5 3+/5 3+/5 Extensor digitorum communis 5/5 3-/5 3+/5 3+/5 4/5 4/5 Extensor indicis 4+/5 3-/5 5/5 4/5 4/5 5/5 Extensor digiti minimi 5/5 3-/5 3+/5 3+/5 3+/5 3+/5 Abductor digiti minimi 5/5 3/5 3/5 3+/5 4/5 4/5 Strength: Activities Volunteer Testing with Dynamometer setting #2 Pinch Testing with Pinch Gauge Right Left 12/25/16 Right 04/21/17 Left 04/21/17 Left 05/14/17 Left 06/05/17 Activities Volunteer setting 2 69.4/66.2/63.7 20.7/16.8/16.6 59.7/57.6/41.3 28.8/23.1/21.3 30.5/29.6/32.3 32.1/24.5/31.4 Activities Volunteer Average 66.4 18 52.9 24.2 30.8 29.3 Activities Volunteer norms for age and gender 61.7 57.3 61.7 57.3 57.3 57.3 [place] 08/08/11 Average: 11 Average: 3.3 10.5// Average: 8.8 Average: 6.3 Average: 5.7 07/07/.5 Average: 10.2 3 Pt 13.5// Average: 13.5 Average: 3.3 Average: 9 Average: 6.7 Average: 5.7 Average: 6.3 Tip Averaged 4.6 0/1/0 Average: 0.3 5.5// Average: 4.5 Average: 3 Average: 3.7 Average: 4 Women Hand Activities Volunteer Strength in Pounds: Mean (SD) Age Right Left 20-29 66.1 (15.4) 61.7 (13.4) 30-39 68.3 (14.1) 63.9 (13.2) 40-49 63.9 (12.6) 61.7 (12.6) 50-59 61.7 (13.9) 57.3 (12.6) 60-69 52.9 (11.7) 50.7 (11.0) 70-74 52.5 (9.5) 48.3 (10.5) 75-79 48.2 (10.3) 43.6 (10.7) 80-84 44.5 (11.1) 41.0 (9.3) 85+ 40.4 (11.6) 37.7 (8.6) (Martir et al, 2011; 1366 mean and 1312 women, community based English population, healthy adults, Tanmay hand dynamometer); (Edward Sharp et al, 2008; n = 224; mean age = 75.4 (6.8); good health with normal hand functions; Tanmay dynamometer) Treatment Today: Reassessed pain and function Reassessed ROM Reassessed stained glass window designer and pinch strength Reassessed UE strength via MMT UE strengthening: shoulder strengthening via step outs x2 sets of 5 repetitions with 2.5# of resistance UE strengthening: elbow kick backs with 2# free weights 1 set at 10 repetitions UE strengthening: scapular retraction without added resistance x 1 set of 5 repetition Functional strengthening via BTE with various attachments for: wrist flexion, wrist extension, wristradial deviation, wrist ulnar deviation, forearm pronation, forearm supination, lateral pinch, palmar pinch UE strengthening: Wrist Extension: 2#, Wrist flexion: 3#, Radial deviation: 2# Reviewed home program for wrist/forearm strengthening with theraband, hand strengthening with theraputty/digiflex (lumbrical pulls, palmar pinch, tip pinch, lateral pinch, gross grasp, hook fist) CLINICAL DECISION MAKING: Fely demonstrates continued improvement in UE strength as evidenced by reports of improved activity tolerance, modest improvements with MMT, and improved lateral pinch strength with testing today. Fely has met 1/3 manager long term care goals pertaining to UE strength and has a home prog awa to facilitate continued improvements in UE strength. Significant gains in improved functional use as measured by DASH and PSFS, progressing towards snf goals. Additional gains to report in significantly decreased pain as measured by the visual analog scale and significantly improved ROM. 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 Fely will trial transition to independent home program to continually progress left UE strength. Feyl Shaw has made excellent progress with therapy and is expected to continue to make gains with increased functional use to tolerance and home program completion. Discharge from therapy at this time. Patient knows to call with any questions or concerns. Patient to follow up with referring MD on 06/17/17. Residential Goals (to be met by discharge): Date Goal Met: 06/05/17 1.) Fely Shaw will demonstrate significantly improved functional performance from re-assessment as measured by a total average score of >/=9/10 using the PSFS. Goal Status: Partially met, patient progressed from 4/10 to 8/10 (two times the minimal level of detectable change). Continue to progress with home program 06/05/17 2.) Fely Shaw will be able resume significantly greater occupational roles independently or modified, based on the occupational profile, with a DASH score of less than 15. Goal Status: Partially met, patient progressed from 42.5 to 19. 9 3.) Patient will demonstrate increased grasp strength by 10# from initial 24.2 pounds with the left hand to increase independence in functional activities. Goal Status: Partially met, continue to progress with home program 06/05/17 4.) Patient will demonstrate increased lateral [place] pinch strength by 2-3# from initial 6.3 pounds with the left hand to increase independence in functional activities including container management at work. Goal Status: Met 06/05/17 5.) Patient will demonstrate increased soto pinch strength by 2-3# from initial 6.7 pounds with the left hand to increase independence in functional activities. Goal Status: Partially met, continue to progress with home program Short Term Goals (progress to 05/29/17): Date Goal Met: 05/14/17 Fely Shaw will demonstrate independence with home exercise program to facilitate improved UE strength necessary for ADL/IADL performance. Goal Status: Met 06/05/17 Fely Shaw will decrease pain to </= 1/10 pain to demonstrate significantly improved functional performance as measured by >/= 2 point improvement on the total average score of the PSFS. Goal Status: Met 05/14/17 Patient will demonstrate increased grasp strength by 2-3# from current 24.2 pounds with the left hand to increase independence in functional activities. Goal Status: Met PLAN: Discharge from therapy at this time. Patient to continue with home program consisting of gradual strengthening to tolerance. Patient knows to call with any questions or concerns. Patient to follow up with referring MD on 06/17/17 (X) Fely Radha Shaw participated in the evaluation, collaborated on treatment goals, and agrees to thetreatment plan . documented in this encounter Plan of Treatment Upcoming Encounters Date Type Specialty Care Team Description 08/07/2022 [facility] Nahid Carl PsyD (TeleHealth) [facility] [place] [address] (Wo rk) documented as of this encounter Visit Diagnoses Diagnosis Left-sided muscle weakness Muscle weakness (generalized) Cervical radiculopathy Brachial neuritis or radiculitis nos documented in this encounter Care Teams Animal Care Worker Relationship Specialty Start Date End Date Susie López APRN PCP - General 05/21/15 06/30/19 documented as of this encounter
--- OUTSIDE RECORDS SUMMARY | 2022-07-25 10:51 | XMS_ITS | Encounter Summary ---
:1960 Author Organization [facility] [place] [address] Care Team Providers Name Role Phone Susie López APRN Primary Care Provider Reason for Referral Diagnostic Test (Routine) - Closed Specialty Diagnoses / Procedures Referred By Contact Refer red To Contact Radiology Diagnoses Cervical disc disorder with radiculopathy of mid-cervical region Abel Delvalle MD [facility] Rad Mri Procedures MRI Cervical Spine wo Contrast (Generic) [facility] [place] [address] [place] [address] Referral ID Status Reason Start Date Expiration Date Visits V isits Requested Authorized [id number] Closed Specialty 03/11/2017 03/11/2018 1 1 Service Requested Reason for Visit Reason Comments Neck Pain Encounter Details Date Type Department Care Team Description 03/11/2017 Office Visit [facility] at Abel Delvalle, Mirnaica l disc disorder Khadar YOUNG with radiculopathy of [facility] [address] [place] [facility] [id number] [place], [place] [id number] Social History Tobacco Use Types Packs/Day Years [...] encounter Progress Notes Abel Delvalle MD - 03/11/2017 8:00 AM EDT Susie López, ADULT EDUCATION MANAGER [facility] [place] [address] Susie López ADULT EDUCATION MANAGER [facility] / [place] 03* Delta Woods MD Dear Colleagues, I had the pleasure of seeing this patient at the [facility] [place] for surgical evaluation. DIAGNOSES: 1. ??Left interosseous weakness in nondominant arm. 2. ??C7-T1 ??bilateral compression of the C8 nerve roots. :L>R 3. ??Status post left upper extremity EMG/nerve conduction studies without clear etiology, possible brachial plexus injury. 4. ??Left shoulder derangement. ? SUMMARY OF PLAN: ??I had the pleasure of seeing this patient back in followup. She has been seeing Occupational Therapy. ??I reviewed her last note from 01/08/2017, which noted increasing strength distally in her hand with decreasing strength proximally. ??Overall, 40% of her function was returned. Her hand function is significantly increased. However, she still feels like she has functional weakness. 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 Had a injection in shoulder at [facility]. Helped. Doing PT for shoulder.?? +Spurling. No atrophy of hand. Hand function IO 45 left. +Impingement Left shoulder. (MRI Biceps tear, RC tear) However, she has had increasing weakness in Left Hand trouble picking things up. IO 3-12/31 Left. +Spurlings. Discussed surgical intervention again. Discussed r/b. Adjacent seg degeneration. Dysphagia, Incomplete relief symptoms. Persistent weakness. Nonunion. Proposed Procedure: ACDF C7-T1 Allograft vs Autograft. Instrumentation. All questions answered. ?? Sincerely, Abel Delvalle MD MS Patternmaker Sample - Orthopedic Spine Surgery / Spine Center Turf Sales Person - Department of Orthopedic Surgery / [employer] Solid Waste Manager - [facility] 03/11/2017 Spine Center Response Trends Patient-reported scores: myD-H Spine Questionnaire responses 10/07/2016 10/27/2016 11/14/2016 11/18/2016 12/08/2016 VR36 - Physical Function (Range: 0-100) - - 32.8 32.8 39.3 VR36 - Bodily Pain (Range: 0-100) - - 23.1 23.1 37.5 VR36 - PCS (Range: 0-100) - - 38.7 38.7 43.9 VR36 - MCS (Range: 0-100) - - 39.6 39.6 36.6 Oswestry Disability Index (Range: 0-100) - - 48 (Severe disability) 48 (Severe disability) - Neck Disability Index (Range: 0-100) - - 38 (Moderate disability) 38 (Moderate disability) 30 (Moderate disability) PROMIS-10 Physical Health Score 50.8 42.3 - - 47.7 PROMIS-10 Mental Health Score 62.5 67.6 - - 56 documented in this encounter Plan of Treatment Upcoming Encounters Date Type Specialty Care Team Description 08/07/2022 TH Visit [facility] Nahid Carl PsyD (TeleHealth) [facility] [address] [address] (Wo rk) documented as of this encounter Procedures Procedure Name Priority Date/Time Associated Diagnosis Comme nts ARTHRODESIS, ANT Routine 03/11/2017 8:49 AM Cervical disc diso rder INTERBODY,DECOMPRESSI EDT with radiculopathy of ON; CERVICAL BELOW C2 mid-cervical region documented in this encounter Results XR Cervical Spine 2 Or 3 Views (04/15/2017 9:16 AM EDT) Anatomical Region Laterality Modality C-spine N/A Digital Radiography Specimen (Source) Anatomical Location Collection Method / Collectio n Time Received Time / Laterality Volume Impressions 04/15/2017 10:59 AM EDT Status post ACDF at C7-T1 without complication. No change in alignment. I have personally reviewed the image(s) and the residents interpretation and agree with the findings, Melanie joshi 04/15/2017 10:59 AM Narrative 04/15/2017 10:59 AM EDT EXAMINATION: XR CERVICAL SPINE 2 OR 3 VIEWS CLINICAL HISTORY: s/p surgery, ACDF at C 7-T1 TECHNIQUE: AP and lateral radiograph cervical spine COMPARISON: Radiographs of the cervical spine 017 FINDINGS: Patient is status post ACDF at C7- T1. N o hardware complications. Interval removal of the surgical drain. No prever tebral soft tissue swelling. Unchanged 2 mm retrolisthesis of C5 on C6. The verte bral body heights are maintained. The pre-dens interval is unchanged and withi n normal limits. Procedure Note Melanie Lind MD - 04/15/2017Formatt ing of this note might be different from the original. EXAMINATION: XR CERVICAL SPINE 2 OR 3 EWS CLINICAL HISTORY: s/p surgery, ACDF at C 7-T1 TECHNIQUE: AP and lateral radiograph cervical spine COMPARISON: Radiographs of the cervical spine FINDINGS: Patient is status post ACDF at C7- T1. N o hardware complications. Interval removal of the surgical drain. No prever tebral soft tissue swelling. Unchanged 2 mm retrolisthesis of C5 on C6. The verte bral body heights are maintained. The pre-dens interval is unchanged and withi n normal limits. IMPRESSION Status post ACDF at C7-T1 without compli cation. No change in alignment. I have personally reviewed the image(s) and the residents interpretation and agree with the findings, Melanie joshi 04/15/2017 10:59 AM Abel Delvalle MD IMG DX ORDERABLES MRI Cervical Spine wo Contrast (Generic) (03/14/2017 1:38 PM EDT) Anatomical Region Laterality Modality C-spine Magnetic Resonance Specimen (Source) Anatomical Location Collection Method / Collectio n Time Received Time / Laterality Volume Impressions 03/15/2017 6:38 PM EDT Cervical spine spondylosis with advanced neural foraminal narrowing at C4-5 and C5-6, not significantly progressed. Narrative 03/15/2017 6:38 PM EDT EXAMINATION: MRI CERVICAL SPINE WO CONTRAST (GENERIC) CLINICAL HISTORY: neck pain, surgical pt . TECHNIQUE: MRI cervical spine was perfor med without contrast, radiculopathy protocol COMPARISON: MRI cervical spine 10/30/2016 FINDINGS: Trace multilevel listhesis the related to degenerative changes. The regional bone marrow demonstrates no focal aggres sive lesion. The vertebral body heights are maintained. ??The cervical cord is n ormal in signal. ??The prevertebral soft tissues are normal in thickness. Findings at individual levels: C2-C3: ??Annular disc bulge and mild buc diane of ligamentum flavum contribute to mild canal narrowing. Mild facet and unc overtebral arthropathy contribute to mild bilateral neural foraminal narrowin g. C3-C4: ??Annular disc bulge and posterio r disc osteophyte complex eccentric to the left along with mild buckling of lig amentum flavum contribute to mild canal narrowing. Uncovertebral osteophytes and left worse than right facet arthropathy contribute to moderate left and mild to moderate right neural foraminal narrowing, not significantly changed. C4-C5: ?? Posterior disc osteophyte comp jhoan and buckling of ligamentum flavum contribute to moderate canal narrowing w ith flattening of the left dorsal cord. Uncovertebral osteophytes and facet arth ropathy contribute to moderate right and severe left neural foraminal narrowing. ? C5-C6: ??Annular disc bulge and trace re trolisthesis along with mild buckling of ligamentum flavum contribute to mild to moderate canal narrowing. Large right-sided uncovertebral osteophytes an d left worse than right facet arthropathy contribute to severe right a nd moderate left neural foraminal narrowing. C6-C7: ??Disc bulge and mild buckling of ligamentum flavum contribute to mild canal narrowing. Right worse than left u ncovertebral arthropathy and left worse than right facet arthropathy contribute to moderate right and mild/moderate left neural foraminal narrowing. ??Right side d perineural cyst. C7-T1: ??Small uncovertebral osteophytes and mild facet arthropathy contribute to mild right and moderate left neural fora lisa narrowing. ??Perineural cysts. Procedure Note Keshia Scott MD - 03/15/2017Form atting of this note might be different from the original. EXAMINATION: MRI CERVICAL SPINE WO CONTR AST (GENERIC) CLINICAL HISTORY: neck pain, surgical pt . TECHNIQUE: MRI cervical spine was perfor med without contrast, radiculopathy protocol COMPARISON: MRI cervical spine 10/30/2016 FINDINGS: Trace multilevel listhesis the related to degenerative changes. The regional bone marrow demonstrates no focal aggres sive lesion. The vertebral body heights are maintained. The cervical cord is nor mal in signal. The prevertebral soft tissues are normal in thickness. Findings at individual levels: C2-C3: Annular disc bulge and mild buckl ing of ligamentum flavum contribute to mild canal narrowing. Mild facet and unc overtebral arthropathy contribute to mild bilateral neural foraminal narrowin g. C3-C4: Annular disc bulge and posterior disc osteophyte complex eccentric to the left along with mild buckling of lig amentum flavum contribute to mild canal narrowing. Uncovertebral osteophytes and left worse than right facet arthropathy contribute to moderate left and mild to moderate right neural foraminal narrowing, not significantly changed. C4-C5: Posterior disc osteophyte complex and buckling of ligamentum flavum contribute to moderate canal narrowing w ith flattening of the left dorsal cord. Uncovertebral osteophytes and facet arth ropathy contribute to moderate right and severe left neural foraminal narrowing. C5-C6: Annular disc bulge and trace retr olisthesis along with mild buckling of ligamentum flavum contribute to mild to moderate canal narrowing. Large right-sided uncovertebral osteophytes an d left worse than right facet arthropathy contribute to severe right a nd moderate left neural foraminal narrowing. C6-C7: Disc bulge and mild buckling of l igamentum flavum contribute to mild canal narrowing. Right worse than left u ncovertebral arthropathy and left worse than right facet arthropathy contribute to moderate right and mild/moderate left neural foraminal narrowing. Right sided perineural cyst. C7-T1: Small uncovertebral osteophytes a nd mild facet arthropathy contribute to mild right and moderate left neural fora lisa narrowing. Perineural cysts. IMPRESSION Cervical spine spondylosis with advanced neural foraminal narrowing at C4-5 and C5-6, not significantly progressed. Abel Delvalle MD IMG MRI ORDERABLES Prothrombin Time (03/13/2017 2:34 PM EDT) athologist Signature PT 12.6 12.0 - 15.0 [facility] Comment: An INR <2.0 indicates adequate procoagul ant activity for hemostasis in most patients without underlying bleeding dis orders, though the INR may not adequately reflect hemostatic capacity i n patients with liver disease and synthetic impairment. The recommended ta rget INR range for therapeutic anticoagulation is 2.0 ? 3.0 for most applications, though lower and higher ranges may be appropriate depending on c linical circumstances. INR 0.9 0.9 - 1.1 [facility] Specimen Anatomical Collection Method Collection Time Receive d Time (Source) Location / / Volume Laterality Blood specimen 03/13/2017 2:34 PM 017 2:37 (specimen) EDT PM EDT Resulting Agency Comment Spec In Lab Abel Delvalle MD HEMATOLOGY ORDERABLES Performing Organization Address City/State/[place] [address] (ABNORMAL) Basic Metabolic Panel (non-fasting) (03/13/2017 2:34 PM EDT) athologist Signature Glucose Lvl 99 65 - 199 [facility] mg/dL [facility] Comment: Diabetes: >=200 mg/dL plus symp toms BUN 16 8 - 18 mg/dL [facility] Creatinine 1.14 0.70 - 1.20 mg/dL [facility] Comment: Please note that the pediatric reference intervals supplied above were not validated at [facility]. Results from pediatri c patients should be interpreted in conjunction to the patient's age, height and muscle mass. Sodium 144 135 - 145 mmol/L [facility] Potassium 4.3 3.5 - 5.0 mmol/L [facility] Comment: Please note: ??Patients with WBC >100,00 0 may have falsely elevated Potassium levels. ??For accurate Potassium quantif ication in these patients send serum separator tube (gold top) for subsequent determinations. ??Contact the Clinical Chemistry Laboratory if there are any qu estions. Chloride 104 98 - 107 mmol/L [facility] CO2 25 22 - 31 mmol/L [facility] Anion Gap 15 5 - 15 mmol/L [facility] Calcium 9.6 8.5 - 10.5 mg/dL [facility] Estimated GFR 49 (L) >=60 [facility] Comment: This estimated GFR (eGFR) value was calc ulated using the MDRD equation which has been validated on patients between t he ages of 18 and 70. The MDRD should not be used to assess kidney function in patients < 18 years of age or in patients with extremes of body mass, or in patients with acute kidney failure. This value should be multiplied by 1.2 f or patients. For further information please copy and past e the following links into your internet browser. http://Planspot/DHnkdep http://Planspot/DHMCnkf Specimen Anatomical Collection Method Collection Time Receive d Time (Source) Location / / Volume Laterality Blood specimen 03/13/2017 2:34 PM 017 2:37 (specimen) EDT PM EDT Resulting Agency Comment Spec In Lab Abel Delvalle MD CHEMISTRY ORDERABLES Performing Organization Address City/State/ZIP Code Phon e Number [place] [phone] documented in this encounter Visit Diagnoses Diagnosis Cervical disc disorder with radiculopath y of mid-cervical region Brachial neuritis or radiculitis nos Cervical disc disorder with radiculopath y of mid-cervical region Brachial neuritis or radiculitis nos Cervical disc disorder with radiculopath y of mid-cervical region Brachial neuritis or radiculitis nos documented in this encounter Care Teams Laboratory Chief Relationship Specialty Start Date End Date Susie López APRN PCP - General 05/21/15 06/30/19 documented as of this encounter
--- OUTSIDE RECORDS SUMMARY | 2022-07-25 10:51 | XMS_ITS | Encounter Summary ---
:1960 Author Organization [facility] [place] [address] Care Team Providers Name Role Phone ReneSusie fleming JE Primary Care Provider Reason for Visit Occupational Therapy (Routine) - Closed Specialty Diagnoses / Procedures Referred By Contact Refer red To Contact Occupational Therapy Diagnoses Cervical disc disorder with radiculopathy of mid-cervical region Left-sided muscle weakness Left arm pain Abel Delvalle MD [facility] [address] [place] [facility] [id number] [place] [address] Referral ID Status Reason Start Date Expiration Date Visits V isits Requested Authorized [id number] Closed Evaluate and 04/15/2017 10/12/2017 1 1 Treat Encounter Details Date Type Department Care Team Description 04/21/2017 Office Visit Occupational Therapy Carlota Rahman Ce rvical radiculopathy; at [facility] [address] OT Left-sided muscle weakness [address] [place] [address] PHYSICAL MEDICINE & [place] [address] Social History Tobacco Use Types Packs/Day Years [...] as of this encounter Progress Notes Carlota Rahman, OT - 04/21/2017 8:00 AM EDT Images from the original note were not included. OCCUPATIONAL THERAPY INITIAL EVALUATION Referral Source: Abel Delvalle MD Next MD Follow-up: PRVilma Total Treatment time: 60 Minutes Timed Code Treatment Time: 60 minutes OCCUPATIONAL PROFILE: Fely Shaw is a 56 y.o. 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 [...] Activity At Evaluation 01/08/17 02/04/17 03/05/17 04/21/17 1.) Donning shirts overhead 3 9 6 10 10 2.) Washing hair 5 5 5 8 10 3.) sewing 7 6 4 6-7 5-6 4.) Cooking; handling heavy pots and pans 3 4 4 6 7 5.) opening containers 5 5 5 6 7 6.) lifting/sliding/pushing/pulling at work >/= 50 1 1 2 6 0 Average Score: 4 5.8 5.2 7.2 6.5 Disabilities of the Arm, Shoulder, and Hand (DASH): DASH Score: 12/25/16: 42.5 04/21/17: 25.8 Standardized measurement of functional limitation related to an upper extremity disability, using 0-100 scale indicating percent of perceived functional impairment. Pain: (Assessed using the visual analog scale) At Rest: 0/10 pain down shoulder blades; 0/10 biceps; 0/10 deltoid, 0/10 left thumb With Activity: 0/10 about neck/scapula; 2-3/10 biceps, 2-3/10 deltoid, 0/10 left thumb COORDINATION: 9 Hole Peg Test RIGHT LEFT LEFT 01/08/17 LEFT 02/04/17 LEFT 03/05/17 Trial #1 18 seconds 18 seconds with 3 wet sander slips/ dropped pegs 18 seconds with 1 wet sander slip 18 seconds with 1 wet sander slip 18 seconds with 1grip slip Mean [...] 01/08/17 Left 01/13/17 Left 03/05/17 Left 04/21/17 Shoulder Extension/Flexion 58/155 40/98 6-7/10 pain with ulnar nerve symptoms 40/88 4/10 pain 50/115 5/10 60/160 Shoulder Abduction 150 46 57 7/10 pain 112 4/10 pain 142 4-5/10 pain Shoulder Internal/External Rot. WFL 62 external rotation 6 inches from inferior angle of contralateral scapula 60 external rotation 7 inches from inferior angle of scapula 50 external rotation 4/10 pain 3.5 inches from inferior angle of scapula 47 external rotation 4/10 pain 0.5 inches from inferior angle of scapula 65 external rotation 7/10 Elbow Extension/Flexion 0/151 -3/148 0/150 0/150 0/148 Wrist Extension/Flexion 70/70 45/70 65/70 65/65 70/70 70/75 Ulnar/Radial Deviation 40/30 30/30 35/25 35/30 40/30 Pronation/Supination 90/90 90/90 90/90 90/90 90/90 Measured in degrees of active motion with [...] Left Left 01/13/17 Left 03/05/17 Left 04/21/17 MMT RIGHT MMT Scapular Elevation 5/5 3/5 3/5 4/5 5/5 Shoulder Flexion 4/5 2/5 2/5 3+/5 3+/5 Shoulder Extension 4/5 2/5 2/5 3+/5 3+/5 Shoulder Abduction 4/5 2/5 2/5 3+/5 3+/5 Shoulder Adduction 5/5 2/5 2/5 3/5 3+/5 Shoulder External Rotation 4-/5 2/5 2/5 3/5 3+/5 5/10 pain Shoulder Internal Rotation 4-/5 2/5 2/5 3/5 3+/5 3/10 pain Elbow Flexion 4+/5 3/5 1-2/ 4/5 1/10 neck pain 4/5 0/10 neck pain 4/5 0/10 neck pain Elbow Extension 4/5 2/5 4/10 pain 3+/5 3+/5 3+/5 Supination 5/5 3/5 4/5 3+/5 4/5 Pronation 5/5 3/5 4/5 1/10 pain 3+/5 4/5 Wrist Extension 5/5 2/5 3/5 4/5 3+/5 Wrist Flexion 5/5 3/5 3+/5 3+/5 3+/5 Wrist ulnar deviation 4/5 3+/5 3+/5 4-/5 4-/5 Wrist radial deviation 4/5 3/5 3/5 4-/5 4-/5 HAND STRENGTH: Manual Muscle Testing (MMT) Right 12/25/16 Left 12/25/16 Left 03/05/17 Left 04/21/17 MMT MMT Opponens pollicis 5/5 3-/5 4/5 4/5 Flexor Pollicis Longus 5/5 3+/5 4/5 4/5 Lumbricals 1 and 2 5/5 3/5 5/5 5/5 Lumbricals 3 and 4 5/5 2/5 3+/5 4-/5 Adductor Pollicis 5/5 3-/5 3+/5 3+/5 Dorsal interossei 5/5 3-/5 4-/5 4-/5 Palmar interossei 5/5 3-/5 3+/5 3+/5 Abductor pollicis longus 5/5 3-/5 4/5 4/5 Abductor pollicis brevis 4/5 3-/5 4/5 4/5 Extensor pollicis longus 4/5 2/5 3+/5 3+/5 Extensor pollicis brevis 4/5 2/5 3+/5 3+/5 Extensor digitorum communis 5/5 3-/5 3+/5 3+/5 Extensor indicis 4+/5 3-/5 5/5 4/5 Extensor digiti minimi 5/5 3-/5 3+/5 3+/5 Abductor digiti minimi 5/5 3/5 3/5 3+/5 Strength: Production Manager Testing with Dynamometer setting #2 Pinch Testing with Pinch Gauge Right Left 12/25/16 Left 02/12/17 Left 03/05/17 Right 04/21/17 Left 04/21/17 Production Manager setting 2 69.4/66.2/63.7 20.7/16.8/16.6 8/10.3/7.3 11.5/10.4/11.8 59.7/57.6/41.3 28.8/23.1/21.3 Production Manager Average 66.4 18 8.6 11.2 52.9 24.2 Production Manager norms for age and gender 61.7 57.3 57.3 57.3 61.7 57.3 [place] 08/08/11 Average: 11 11/28/4 Average: 3.3 3/2.5/3 Average: 2.8 4.//5 Average: 4.8 10.//7 Average: 8.8 03/04/6 Average: 6.3 3 Pt 13.5/14 Average: 13.5 //4 Average: 3.3 3/2 Average: 2.3 5 Average: 3.7 Average: 9 Average: 6.7 Tip Averaged 4.6 0/1/0 Average: 0.3 //2 Average: 1.3 2/3/2 Average 2.3 5.5//4 Average: 4.5 Average: 3 Women Hand Production Manager Strength in Pounds: Mean (SD) Age Right [...] 1366 mean and 1312 women, community based [place] population, healthy adults, Tanmay hand dynamometer); (Edward Sharp et al, 2008; n = 224; mean age = 75.4 (6.8); good health with normal hand functions; Tanmay dynamometer) Treatment Today: Reassessed pain Reassessed function via DASH and PSFS Reassessed ROM Reassessed UE strength via MMT, wet sander strength, pinch strength Reviewed home program for wrist/forearm strengthening with theraband, hand strengthening with theraputty/digiflex CLINICAL DECISION MAKING: Fely has pain and generalized UE weakness causing functional deficits in ADL/IADL performance. Please see above, PSFS and DASH for specific functional deficits.UE weakness continues to be most pronounced in musculature innervated by the ulnar nerve: flexor carpi ulnaris, dorsal interossei, palmar interossei, lumbricals 3 and 4, abductor digiti minimi, and adductor pollicis.Fely is able to demonstrate home exercises with written instructions provided. Fely Shaw has good potential for gains with therapy with identified needs for skilled therapy for treatment of deficits noted during evaluation today, to maximize functional performance during daily activities. Chcf Goals (to be met by discharge): Date Goal Met: 1.) Fely Shaw will demonstrate significantly improved functional performance from re-assessmentas measured by a total average score of >/=9/10 using the PSFS. Goal Status: In progress 2.) Fely Shaw will be able resume significantly greater occupational roles independently or modified, based on the occupational profile, with a DASH score of less than 15. Goal Status: In progress 3.) Patient will demonstrate increased grasp strength by 10# from initial 24.2 pounds with the lefthand to increase independence in functional activities. Goal Status: In progress 4.) Patient will demonstrate increased lateral [place] pinch strength by 2-3# from initial 6.3 pounds with the left hand to increase independence in functional activities including container management atwork. Goal Status: In progress 5.) Patient will demonstrate increased soto pinch strength by 2-3# from initial 6.7 pounds with the left hand to increase independence in functional activities. Goal Status: In progress Short Term Goals (progress to 05/08/17): Date Goal Met: Fely Shaw will demonstrate independence with home exercise program to facilitate improved UE strength necessary for ADL/IADL performance. Goal Status: In progress Fely Shaw will decrease pain to </= 1/10 pain to demonstrate significantly improved functional performance as measured by >/= 2 point improvement on the total average score of the PSFS. Goal Status: In progress Patient will demonstrate increased grasp strength by 2-3# from current 24.2 pounds with the left hand to increase independence in functional activities. Goal Status: In progress PLAN: Patient would benefit from skilled occupational therapy services 1 time a week for 4 weeks to progress towards short term and exterminator goals Therapeutic exercises to increase functional mobility Splinting to provide support and protection to the joint ADL training to increase independence in self care Functional activities to increase hand function and independence in self care Perform modalities as therapeutically necessary to decrease pain and increase mobility Hot pack and Electrical Stimulation (X) Fely Shaw participated in the evaluation, collaborated on treatment goals, and agrees to thetreatment plan . documented in this encounter Plan of Treatment Upcoming Encounters Date Type Specialty Care Team Description 08/07/2022 TH [facility] Nahid Carl PsyD (TeleHealth) [facility] [address], [place] [address] (Wo rk) Scheduled Referrals Name Type Priority Associated Diagnoses Order S chedule Referral to Outpatient Routine Cervical disc Ordered: Occupational Therapy Referral disorder with 2016 radiculopathy of mid-cervical reg ion Left-sided muscle weakness Left arm pain documented as of this encounter Visit Diagnoses Diagnosis Cervical radiculopathy Brachial neuritis or radiculitis nos Left-sided muscle weakness Muscle weakness (generalized) documented in this encounter Care Teams Watchmaking Teacher Relationship Specialty Start Date End Date Susie López APRN PCP - General 05/21/15 06/30/19 documented as of this encounter
--- OUTSIDE RECORDS SUMMARY | 2022-07-25 10:51 | XMS_ITS | Encounter Summary ---
:1960 Author Organization [facility] [place] [address] Care Team Providers Name Role Phone ReneSusie fleming JE Primary Care Provider Encounter Details Date Type Department Care Team Description 06/25/2017 Notes Only Spine Center at [facility] [place] [address] Social History Tobacco Use Types Packs/Day [...] documented as of this encounter Progress Notes Dawn Vee RN - 06/25/2017 11:59 PM EDT Request for medical records from 06/17/17 to present from [facility] [place] faxed to Medical Records Release of Information to process. documented in this encounter Plan of Treatment Upcoming Encounters Date Type Specialty Care Team Description 08/07/2022 TH Visit [facility] Nahid Carl PsyD (TeleHealth) [facility] [address], [place] [address] (Wo rk) documented as of this encounter Visit Diagnoses Not on filedocumented in this encounter Care Teams Tire Room Supervisor Relationship Specialty Start Date End Date Susie López APRN PCP - General 05/21/15 06/30/19 documented as of this encounter
--- OUTSIDE RECORDS SUMMARY | 2022-07-25 10:51 | XMS_ITS | Encounter Summary ---
:1960 Author Organization [facility] [place] [address] Care Team Providers Name Role Phone Rene, Susie JE Primary Care Provider Encounter Details Date Type Department Care Team Description 03/13/2017 Telephone Spine Center at [facility] non Kylee Verduzco, [place] [address] Social History Tobacco Use Types Packs/Day Years [...] this encounter Miscellaneous Notes Telephone Encounter - Kylee Verduzco RN - 03/13/2017 2:05 PM EDT Received call from Fely requesting an updated work note to cover her until her pending surgery. Letter was done as authorized by Dr. Delvalle. See pt letters for details. documented in this encounter Plan of Treatment Upcoming Encounters Date Type Specialty Care Team Description 08/07/2022 TH Visit [facility] Nahid Carl PsyD (TeleHealth) [facility] [address], [place] [address] (Wo rk) documented as of this encounter Visit Diagnoses Not on filedocumented in this encounter Care Teams Rod Finisher Relationship Specialty Start Date End Date Susie López APRN PCP - General 05/21/15 06/30/19 documented as of this encounter
--- OUTSIDE RECORDS SUMMARY | 2022-07-25 10:51 | XMS_ITS | Encounter Summary ---
:1960 Author Organization [facility] [place] [address] Care Team Providers Name Role Phone Susie López JE Primary Care Provider Encounter Details Date Type Department Care Team Description 05/14/2017 Office Visit Occupational Therapy Carlota Rahman [facility] muscle at [facility] OT weakness [address] [place] [address] PHYSICAL MEDICINE & [place] [address] Social History Tobacco Use Types Packs/Day Years [...] of this encounter Progress Notes Carlota Rahman, SOHA - 05/14/2017 8:30 AM EDT Images from the original note were not included. 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 [...] At Evaluation 01/08/17 02/04/17 03/05/17 04/21/17 05/14/17 1.) Donning shirts overhead 3 9 6 10 10 9 2.) Washing hair 5 5 5 8 10 9 3.) sewing 7 6 4 6-7 5-6 7 4.) Cooking; handling heavy pots and pans 3 4 4 6 7 6 5.) opening containers 5 5 5 6 7 8 6.) lifting/sliding/pushing/pulling at work >/= 50 1 1 2 6 0 2 Average Score: 4 5.8 5.2 7.2 6.5 6.8 Disabilities of the Arm, Shoulder, and Hand (DASH): DASH Score: 12/25/16: 42.5 04/21/17: 25.8 Standardized measurement of functional limitation related to an upper extremity disability, using 0-100 scale indicating percent of perceived functional impairment. Pain: (Assessed using the visual analog scale) At Rest: 0/10 pain With Activity: 0-2/10 pain COORDINATION: 9 Hole Peg Test RIGHT LEFT LEFT 01/08/17 LEFT 02/04/17 LEFT 03/05/17 Trial #1 18 seconds 18 seconds with 3 enhanced environmental operator slips/ dropped pegs 18 seconds with 1 enhanced environmental operator slip 18 seconds with 1 enhanced environmental operator slip 18 seconds with 1grip slip Mean [...] 01/13/17 Left 03/05/17 Left 04/21/17 Left 05/14/17 MMT RIGHT MMT Scapular Elevation 5/5 3/5 3/5 4/5 5/5 Shoulder Flexion 4/5 2/5 2/5 3+/5 3+/5 Shoulder Extension 4/5 2/5 2/5 3+/5 3+/5 Shoulder Abduction 4/5 2/5 2/5 3+/5 3+/5 Shoulder Adduction 5/5 2/5 2/5 3/5 3+/5 Shoulder External Rotation 4-/5 2/5 2/5 3/5 3+/5 5/10 pain Shoulder Internal Rotation 4-/5 2/5 2/5 3/5 3+/5 3/10 pain Elbow Flexion 4+/5 3/5 1-2/10 4/5 1/10 neck pain 4/5 0/10 neck pain 4/5 0/10 neck pain 4/5 0/10 pain Elbow Extension 4/5 2/5 4/10 pain 3+/5 3+/5 3+/5 3+/5 Supination 5/5 3/5 4/5 3+/5 4/5 5/5 Pronation 5/5 3/5 4/5 1/10 pain 3+/5 4/5 5/5 Wrist Extension 5/5 2/5 3/5 4/5 3+/5 4/5 Wrist Flexion 5/5 3/5 3+/5 3+/5 3+/5 3+/5 Wrist ulnar deviation 4/5 3+/5 3+/5 4-/5 4-/5 4/5 Wrist radial deviation 4/5 3/5 3/5 4-/5 4-/5 4/5 HAND STRENGTH: Manual Muscle Testing (MMT) Right 12/25/16 Left 12/25/16 Left 03/05/17 Left 04/21/17 Left 05/14/17 MMT MMT Opponens pollicis 5/5 3-/5 4/5 4/5 4/5 Flexor Pollicis Longus 5/5 3+/5 4/5 4/5 4/5 Lumbricals 1 and 2 5/5 3/5 5/5 5/5 5/5 Lumbricals 3 and 4 5/5 2/5 3+/5 4-/5 4/5 Adductor Pollicis 5/5 3-/5 3+/5 3+/5 4/5 Dorsal interossei 5/5 3-/5 4-/5 4-/5 4/5 Palmar interossei 5/5 3-/5 3+/5 3+/5 4-/5 Abductor pollicis longus 5/5 3-/5 4/5 4/5 4/5 Abductor pollicis brevis 4/5 3-/5 4/5 4/5 4/5 Extensor pollicis longus 4/5 2/5 3+/5 3+/5 3+/5 Extensor pollicis brevis 4/5 2/5 3+/5 3+/5 3+/5 Extensor digitorum communis 5/5 3-/5 3+/5 3+/5 4/5 Extensor indicis 4+/5 3-/5 5/5 4/5 4/5 Extensor digiti minimi 5/5 3-/5 3+/5 3+/5 3+/5 Abductor digiti minimi 5/5 3/5 3/5 3+/5 4/5 Strength: Transcribing Machine Mechanic Testing with Dynamometer setting #2 Pinch Testing with Pinch Gauge Right Left 12/25/16 Right 04/21/17 Left 04/21/17 Left 05/14/17 Transcribing Machine Mechanic setting 2 69.4/66.2/63.7 20.7/16.8/16.6 59.7/57.6/41.3 28.8/23.1/21.3 30.5/29.6/32.3 Transcribing Machine Mechanic Average 66.4 18 52.9 24.2 30.8 Transcribing Machine Mechanic norms for age and gender 61.7 57.3 61.7 57.3 57.3 [place] 08/08/11 Average: 11 Average: 3.3 10.5/06/04 Average: 8.8 Average: 6.3 Average: 5.7 3 Pt 13./ Average: 13.5 Average: 3.3 Average: 9 Average: 6.7 Average: 5.7 Tip Averaged 4.6 0/1/0 Average: 0.3 5.5// Average: 4.5 Average: 3 Average: 3.7 Women Hand Transcribing Machine Mechanic Strength in Pounds: Mean (SD) Age Right [...] 1366 mean and 1312 women, community based [place] population, healthy adults, Tanmay hand dynamometer); (Edward Sharp et al, 2008; n = 224; mean age = 75.4 (6.8); good health with normal hand functions; Tanmay dynamometer) Treatment Today: Reassessed enhanced environmental operator and pinch strength Reassessed UE strength via MMT + Froment's sign on right - Wartenberg's sign bilaterally Reassessed pain and function UE strengthening completed with theraband (patient progressed from red to green, moderate resistive theraband): elbow flexion, forearm pronation, forearm supination, wrist flexion, wrist extension Transcribing Machine Mechanic strengthening with calibrated gripper set at 20#: 1 sets of 10 repetitions, reduced to 15# for additional 15 repetitions Reviewed home program for wrist/forearm strengthening with theraband, hand strengthening with theraputty/digiflex (lumbrical pulls, palmar pinch, tip pinch, lateral pinch, gross grasp, hook fist) CLINICAL DECISION MAKING: Fely has made excellent gains in improved strength and function this interim, meeting 2/3 short term goals. Significantly improved enhanced environmental operator strength appreciated with reassessmentvia hand held dynamometer today, meeting short term goal. While Fely's gains in enhanced environmental operator strength are significant, her enhanced environmental operator strength remains below the age-based norms and she will benefit from continued strengthening in occupational therapy. Additional improvements in UE strength evidenced by Fely's tolerance to increased resistance with forearm/wrist/hand strengthening today reporting 0/10 pain duringand after exercise completion. Fely is able to demonstrate home exercises with written instructionsprovided and verbalized understanding of safe us of increased resistance, meeting short term goal. Modest gains to report this interim in improved functional use of left UE; goal to facilitate improvedfunctional use will be progressed an additional interim. Fely Shaw has good potential for gains with therapy with identified needs for skilled therapy for treatment of deficits noted during evaluation today, to maximize functional performance during daily activities. Correction Goals (to be met by discharge): Date [...] In progress Short Term Goals (progress to 05/29/17): Date Goal Met: 05/14/17 Fely Shaw will demonstrate independence with home exercise program to facilitate improved UE strength necessary for ADL/IADL performance. Goal Status: Met Fely Shaw will decrease pain to </= 1/10 pain to demonstrate significantly improved functional performance as measured by >/= 2 point improvement on the total average score of the PSFS. Goal Status: Partially met, continue to progress to facilitate improve functional use of left UE 05/14/17 Patient will demonstrate increased grasp strength by 2-3# from current 24.2 pounds with the left hand to increase independence in functional activities. Goal Status: Met PLAN: Patient would benefit from skilled occupational therapy services 1 time a week for 4 weeks to progress towards short term and skilled nursing goals Therapeutic exercises to increase functional mobility [...] and Spine Center Nahid Carl PsyD (TeleHealth) [facility] [address], [place] [address] (Wo rk) documented as of this encounter Visit Diagnoses Diagnosis Left-sided muscle weakness Muscle weakness (generalized) documented in this encounter Care Teams Lime Trimmer Relationship Specialty Start Date End Date Susie López APRN PCP - General 05/21/15 06/30/19 documented as of this encounter
--- OUTSIDE RECORDS SUMMARY | 2022-07-25 10:51 | XMS_ITS | Encounter Summary ---
:1960 Author Organization [facility] [place] [address] Care Team Providers Name Role Phone Rene, Susie WOOTEN Primary Care Provider Reason for Visit Reason Onset Date Comments Other 05/29/2017 Encounter Details Date Type Department Care Team Description 05/29/2017 Telephone Spine Center at [facility] Jennifer [place] [address] Social History Tobacco Use Types Packs/Day [...] Telephone Encounter - Jennifer Hinkle MSW - 05/29/2017 12:17 PM EDT OFFICE OF CARE MANAGEMENT [facility] Spoke with Ms. Wheatley who reports she finds the 9hr days (usual shift 12hrs) and 15lb lifting restriction about what she feels she can tolerate for now. Agreed to review with Dr. Delvalle (who she will be seeing on 06/17) and either produce documentation or a WRAP measurements for response to FMLA and ADA accommodation. She does not report other needs for accommodations. Reviewed with Dr. Delvalle, will proceed with WRAP and respond to ADA and FMLA paperwork with these measurements. Update to Denae Lindsey (Haley) to expect response post 06/17 and WRAP visit for this lady just 3 months post ACDF. Paperwork held for chart at follow up appt for WRAP documented in this encounter Plan of Treatment Upcoming Encounters Date Type Specialty Care Team Description 08/07/2022 TH Visit [facility] Nahid Carl PsyD (TeleHealth) [facility] [place] [address] (Wo rk) documented as of this encounter Visit Diagnoses Not on filedocumented in this encounter Care Teams Mother'S Helper Relationship Specialty Start Date End Date Susie López APRN PCP - General 05/21/15 06/30/19 documented as of this encounter
--- OUTSIDE RECORDS SUMMARY | 2022-07-25 10:51 | XMS_ITS | Encounter Summary ---
:1960 [place] [address] Care Team Providers Name Role Phone ReneSusie fleming JE Primary Care Provider Reason for Visit Auth/Cert Specialty Diagnoses / Procedures Referred By Contact Refer red To Contact Diagnoses Cervical Radiculopathy Procedures PRO ARTHRODESIS, ANT INTERBODY,DECOMPRESSION; CERVICAL BELOW C2 ARTHRODESIS, ANT INTERBODY,DECOMPRESSION; [facility] Referral ID Status Reason Start Date Expiration Date Visits Requ ested Visits Authorized [id number] 1 1 Encounter Details Date Type Department Care Team Description 03/23/2017 Surgery Main Operating Room [facility], [facility] ; CERVICAL BELOW C2 [facility] ([facility] 25) [address] [id number] [phone] Social History Tobacco Use Types Packs/Day Years [...] Sign Reading Time Taken Comments Blood Pressure 143/85 03/23/2017 10:15 AM EDT Pulse 77 03/23/2017 10:15 AM EDT Temperature 36.9 ??C (98.4 ??F) 03/23/2017 10:15 AM EDT Respiratory Rate 14 03/23/2017 10:15 AM EDT Oxygen Saturation 100% 03/23/2017 10:15 AM EDT Inhaled Oxygen Concentration - - Weight 73.5 kg (162 lb) 03/23/2017 6:48 AM EDT Height 170.2 cm (5' 7) 03/23/2017 6:48 AM EDT Body Mass Index 25.37 03/23/2017 6:48 AM EDT documented in this encounter Discharge Summaries Sheila Brown PA - 03/23/2017 12:46 PM EDT Discharge Summary Patient Name: Fely Shaw Patient Age: 56 y.o. Language: Venezuelan Race: White Ethnicity: Not nor Admit date: 03/23/2017 Discharge date and time: 03/24/2017 Attending Physician: No att. providers found Discharge Physician: No att. providers found Follow-up Recommendations for Providers: See discharge instructions for additional details. Future Appointments Date Time Provider Department Center 04/15/2017 8:55 AM [facility] 04/15/2017 9:40 AM Abel Delvalle MD [facility] Inpatient Provider Contact Information: No att. providers found Spine: [phone]. After hours and weekends, call [facility], , and have the Orthopedic resident paged. Discharge Diagnoses (Hospital Problems) and Secondary Diagnoses (Chronic Problems): Active Hospital Problems Diagnosis ??? Cervical radiculopathy Resolved Hospital Problems Diagnosis Date Resolved No resolved problems to display. Active Non-Hospital Problems Diagnosis ??? Milium ??? Left-sided muscle weakness ??? Neck pain ??? Cervical disc disorder with radiculopathy of mid-cervical region ??? Biceps rupture, proximal ??? Acute pain of left shoulder ??? Lumbosacral spondylosis without myelopathy ??? Lumbar strain ??? Lower back pain ??? Finger sprain ??? Left knee pain ??? 12/11/10 ARTHROSCOPY KNEE,MENISCECTOMY SINGLE WITH SHAVING OSC /LEFT/LATERAL Operations/Major Procedures: 03/23/2017 Surgeon(s) and Role: * Abel Delvalle MD - Primary * Ivan Sterling MD Procedure(s): 1. ACDF C7-T1 2. Application of interbody cage 3. Anterior instrumentation C7-1 - 4. Iliac Crest Bone Graft Separate Incision History of Presentation: Fely Shaw is a 56 y.o. female with cervical radiculopathy. R/B were disccussed which included adjacent segment degeneration, nonunion, hardware problems, persistent symptoms, dysphagia as well as other. All questions were answered. Hospital Course: Fely Shaw was admitted for the above operation. Operative course was uneventful. On POD#1 she was allowed out of bed ad michael, with no bending or twisting. The patient was instructed to wear a soft collar for comfort only. These parameters were reinforced by physical therapy. The patient???s [employer] was discontinued on POD#1 and was transitioned to oral pain medications and was comfortable. The patientrequired straight cath in the PACU and prior to discharge was voiding without difficulty. On POD#2 the dressing was dry and intact and the wound was benign. She did not have a bowel movement prior to di scharge but was passing flatus and eating and drinking well. Prior to discharge the patient was afebrile, with stable vital signs and on POD#1, was deemed stable for discharge to home. Vital Signs at Discharge: Weight: Wt Readings from Last 1 Encounters: 03/23/ 73.5 kg (162 lb) Height: Ht Readings from Last 1 Encounters: 03/23/ 170.2 cm (5' 7) HC: HC Readings from Last 1 Encounters: No data found for HC BMI: Body mass index is 25.37 kg/(m^2). Last value Range last 24 hrs Temperature Temp: 36.8 ??C (98.2 ??F) Temp: [36.8 ??C (98.2 ??F)-37.2 ??C (99 ??F)] Heart Rate Heart Rate: 68 Heart Rate: -- Blood Pressure BP: 129/72 BP: (124-131)/(67-72) Respiratory Rate Resp: 16 Resp: [16-20] SpO2 SpO2: 95 % SpO2: [91 %-96 %] Art BP BP (Arterial Line): -- Functional and Cognitive Status: Ambulating independently, cognitively intact. Important Studies and Lab Data: Labs: Last 3 wbc, hgb, hct plt Recent Labs 03/24/17 0400 03/13/17 1434 WBC 9.8* 6.6 HGB 13.8 13.9 HCT 39.8 42.4 PLATELET 212 240 Last 3 Lytes Recent Labs 03/24/17 0400 03/13/17 1434 NA 140 144 K 4.2 4.3 CL 100 104 CO2 26 25 BUN 10 16 CREATININE 0.65* 1.14 Studies: Mri Cervical Spine Wo Contrast (generic) Result Date: 03/15/2017 EXAMINATION: MRI CERVICAL SPINE WO CONTRAST (GENERIC) CLINICAL HISTORY: neck pain, surgical pt. TECHNIQUE: MRI cervical spine was performed without contrast, radiculopathy protocol COMPARISON: MRI cervical spine 10/30/2016 FINDINGS: Trace multilevel listhesis the related to degenerative changes. The regional bone marrow demonstrates no focal aggressive lesion. The vertebral body heights are maintained.The cervical cord is normal in signal. The prevertebral soft tissues are normal in thickness. Findings at individual levels: C2-C3: Annular disc bulge and mild buckling of ligamentum flavum contribute to mild canal narrowing. Mild facet and uncovertebral arthropathy contribute to mild bilateral neural foraminal narrowing. C3-C4: Annular disc bulge and posterior disc osteophyte complex eccentric to the left along with mild buckling of ligamentum flavum contribute to mild canal narrowing. Uncovertebral osteophytes and left worse than right facet arthropathy contribute to moderate left and mild to moderate right neural foraminal narrowing, not significantly changed. C4-C5: Posterior disc osteophyte complex and buckling of ligamentum flavum contribute to moderate canal narrowing with flattening of the left dorsal cord. Uncovertebral osteophytes and facet arthropathy contribute to moderate right and severe left neural foraminal narrowing. C5-C6: Annular disc bulge and trace retrolisthesis along withmild buckling of ligamentum flavum contribute to mild to moderate canal narrowing. Large right-sideduncovertebral osteophytes and left worse than right facet arthropathy contribute to severe right andmoderate left neural foraminal narrowing. C6-C7: Disc bulge and mild buckling of ligamentum flavum co ntribute to mild canal narrowing. Right worse than left uncovertebral arthropathy and left worse than right facet arthropathy contribute to moderate right and mild/moderate left neural foraminal narrowing. Right sided perineural cyst. C7-T1: Small uncovertebral osteophytes and mild facet arthropathy co ntribute to mild right and moderate left neural foraminal narrowing. Perineural cysts. Cervical spine spondylosis with advanced neural foraminal narrowing at C4-5 and C5-6, not significantly progressed. Xr Cervical Spine 1 View Result Date: 03/23/2017 EXAMINATION: XR CERVICAL SPINE 1 VIEW CLINICAL HISTORY: Cervical Radiculopathy TECHNIQUE: Portable crosstable lateral cervical spine in OR COMPARISON: 03/23/2017 at 0846 hours FINDINGS: There is new plate and screw anterior fusion where spanning C6-7. There is no change in the alignment of the cervicalspine and the fusion hardware is intact. Again noted is multilevel degenerative disc disease with 1 to 2 mm of retrolisthesis of C5 on C6. New anterior fusion hardware at C6-7 without complication. Xr Cervical Spine 1 View Result Date: 03/23/2017 EXAMINATION: XR CERVICAL SPINE 1 VIEW CLINICAL HISTORY: Cervical Radiculopathy TECHNIQUE: Audible crosstable lateral cervical spine in OR COMPARISON: 03/23/2017 at 0819 hours FINDINGS: The tip of the metallic marker is superimposed over the anterior aspect of the C7 T1 disc space. Again noted is multilevel degenerative disc disease, most pronounced at C5-6 and C6-7. Marker at level of C7-T1. Xr Cervical Spine 1 View Result Date: 03/23/2017 EXAMINATION: XR CERVICAL SPINE 1 VIEW CLINICAL HISTORY: intraoperative level confirmation TECHNIQUE:Portable crosstable lateral cervical spine in OR COMPARISON: 10/30/2016 FINDINGS: No radiopaque level marker is present. The spine is visible down to the level of C7. There is no interval change. Again noted is multilevel degenerative disc disease with 1 to 2 mm of retrolisthesis of C5 on C6. Incidentally noted is a new endotracheal tube in satisfactory position. No radiopaque level marker. No change in appearance of cervical spine. Xr Cervical Spine 2 Or 3 Views Result Date: 03/23/2017 EXAMINATION: XR CERVICAL SPINE 2 OR 3 VIEWS CLINICAL HISTORY: s/p ACDF C7-T1 TECHNIQUE: AP and lateral cervical spine COMPARISON: 03/23/2017 at 0929 hours FINDINGS: The previously seen endotracheal tubeand esophageal probe have been removed. There is no change in the position and integrity of the anterior fusion plate and screws bridging C7 and T1. Again noted is multilevel degenerative disc disease with 1 to 2 mm of retrolisthesis of C5 on C6. No change in position or integrity of anterior cervical fusion hardware. Transfusions: No Discharge Conditions/Prognosis: Stable, awake, and alert. Mobilizing as noted above, pain controlledon oral medications. Discharge to: Home With family support. Updated Allergies/ADRs: Allergies Allergen Reactions ??? Allergen Vgx-Bhkgh-Hpedp Bee Anaphylaxis ??? Venom-Wasp Anaphylaxis ??? Ssxat-Aiqct-Jasmu Hornet Anaphylaxis ??? Venom-Yellow Hornet Anaphylaxis ??? Venom-Yellow Jacket Anaphylaxis ??? Cis Free Text Allergy food dyes - Hives( gel type medication- bright red and yellow) ??? Nexium [Esomeprazole Magnesium] Other (See Comments) Light headed ??? Norflex [Orphenadrine Citrate] Nausea Only Dizziness Immunizations Given this Hospitalization: Immunization History Administered Date(s) Administered ??? Hepatitis A Vaccine, unspecified formulation 03/11/2013 ??? Influenza PF, Split 06/27/2012, 06/20/2013, 07/06/2014, 07/16/2015, 06/11/2016 ??? Influenza Vaccine (Novel) [id number], Injectable 08/01/2009 ??? Influenza Vaccine w/Preservative, Split 07/07/2011 ??? Influenza Vaccine, Whole 06/15/2009 ??? Td, adult 12/23/2013 ??? Tdap Vaccine 01/28/2006 ??? Typhoid, VICP 03/11/2013 Discharge Medications: Your Medications New Medications Dose Details oxyCODONE 5 mg Tab Commonly known as: ROXICODONE Take 1-2 tablets by mouth every 4 hours as needed for Pain. Take the smallest dose possible to control your pain. As your pain improves take smaller, less frequent doses. You may break the tablet to achieve a smaller dose. 5-10 mg Quantity: 20 tablet Refills: 0 polyethylene glycol 17 gram Pwpk Commonly known as: MIRALAX Take 17 g by mouth 2 times daily as needed (bowel regimen/constipaton). 17 g Refills: 0 senna-docusate 8.6-50 mg Tab Commonly known as: PERICOLACE Take 2 tablets by mouth 2 times daily. Bowel regimen while on narcotics. 2 tablet Quantity: 60 tablet Refills: 2 Continued medications with new dosing Dose Details acetaminophen 500 mg Tab Commonly known as: TYLENOL Take 2 tablets by mouth every 8 hours. Around the clock until 04/02/17, and then as needed. DO NOT EXCEED 3000 mg tylenol in a 24 hour period. What changed: - when to take this - reasons to take this - additional instructions 1000 mg Refills: 0 Continued medications, unchanged Dose Details Calcium 500 mg Tab Take 1,000 mg by mouth daily. 1000 mg Refills: 0 cetirizine 10 mg Tab Commonly known as: ZyrTEC Take 10 mg by mouth daily. 10 mg Refills: 0 EPINEPHrine 0.3 mg/0.3 mL Atin Commonly known as: EPIPEN Inject 0.3 mLs into the muscle once as needed. 0.3 mg Quantity: 2 each Refills: 1 gabapentin 300 mg Cap Commonly known as: NEURONTIN Take 2 capsules by mouth 3 times daily. 600 mg Quantity: 540 capsule Refills: 3 vitamin E 400 unit Cap Take 400 Units by mouth 2 times daily. 400 Units Refills: 0 STOPPED Medications BLACK COHOSH ORAL meloxicam 7.5 mg Tab Commonly known as: ARCHIE Smoking Status at Discharge: History Smoking Status ??? Former Smoker ??? Types: Cigarettes ??? Quit date: 08/12/2009 Smokeless Tobacco ??? Never Used Instructions Given to Patient at Discharge: There are no outpatient Patient Instructions on file for this admission. General Instructions Activity: 1. You may perform your daily activities as tolerated but minimize bending at the waist greater than90 degrees, twisting around your waist, or lifting anything heavier than 5-10 lbs (about a full gallon of water.) 2. In general, guide your activity by the thought that if it hurts, don???t do it. 3. In addition, we recommend taking several walks every day after surgery and gradually increasing your distance and duration over the next 2-4 weeks. Diet: 1. Eat your normal diet, with adequate amounts of protein and fiber. 2. The pain medications you are taking can cause constipation, so increase your intake of fluids andfiber while you are taking them. 3. You should also take an khun-yyq-wjkqfdw stool softener or laxative, such as Yessica-colace or Miralax, to facilitate a bowel movement. Drivin. You are not allowed to drive if you are still requiring narcotic pain medication to manage your discomfort. Medication: 1. You are being discharged on a narcotic pain medication. Common side effects of this medication include drowsiness, nausea, and constipation. You should only take the smallest amount of pain medication that adequately controls your pain. 2. You may take Tylenol (acetaminophen) around the clock as directed on the package to help reduce the amount of narcotic medication you need. Do not take more than 3,000mg of acetaminophen in a 24 hour period. 3. You have had a spinal fusion surgery. DO NOT take any nonsteroidal anti- inflammatory medication (NSAID) such as Aleve, Ibuprofen, Motrin, Naprosyn, or Advil. 4. If you need a renewal of your pain medication, please contact the Spine Center Prescription Line at [phone]. PRESCRIPTION RENEWAL REQUESTS CAN TAKE UP TO 3 DAYS TO FILL. YOU WILL BE REQUIRED TOPICK UP YOUR NARCOTIC REFILL PRESCRIPTION IN PERSON AT [facility] OR IT CAN BE MAILED TO YOUR PHARMACY. Soft collar for comfort. Wound Care/Shower/Bath: 1. You have absorbable sutures under your skin that do not need to be removed. They are covered by steri-strips, gauze and a clear plastic Tegaderm dressing. 2. This dressing should stay in place until 4 days after your surgery. After 4 days, on 03/27/2017, you may remove the dressing and leave the incision uncovered so long as there is no continued drainage. If there is drainage, you may replace the dressing with a clean, dry gauze held in place with tape.Any bandage over the incision should be dry at all times and should be replaced if wet. If the incision continues to drain 5 days after surgery, please call the Spine Center at the number below. 3. After the dressing is removed, 4 days after surgery, the paper strips (steri- strips) should be kept in place. After 14 days you can remove the remaining steri-strips if they have not fallen off already. 4. For the first 4 days after surgery, shower with the clear plastic Tegaderm dressing covering yourincision to keep it dry. After 4 days when the dressing has been removed, you may allow water to runover the incision when you shower but do not scrub the surrounding skin. Gently pat dry with a clean, dry towel after showering. 5. Do not soak the incision underwater (i.e. lakes, pools, hot tubs, bath tubs, etc.) for at least 4weeks until the incision has completely healed. PLEASE CALL US AT [phone] TO SPEAK WITH A SPINE CENTER NURSE IF YOU EXPERIENCE THE FOLLOWING: ?? Fevers greater than 101.5 degrees Fahrenheit ?? Chills or night sweats ?? Nausea or vomiting ?? Wound Redness or drainage after 5 days ?? New numbness or tingling in your hands or feet ?? Incontinence of bowel or bladder ?? Any questions or concerns Important Phone Numbers: Clinical issues, nurse questions: [phone] Medication renewals: [phone] Delvalle: [phone] Evenings after 5pm and weekends you may contact the Orthopaedic resident car electronics installer: [phone], ask the studio control operator to page the Orthopaedic resident Follow Up Appointments: 1. You will have follow-up appointments at [facility] as indicated in the ???Future Appointments and Orders?? section of your discharge summary. If X-rays have been ordered for you prior to this appointmentyou will need to report to the Radiology department, desk 3T, 1 hour prior to your spine center appointment. Future Appointments Date Time Provider Department Center 04/15/2017 8:55 AM [facility] DX ROOM 6 [facility] 04/15/2017 9:40 AM Abel Delvalle MD [facility] [place] [facility] Future Appointments and Orders Future Appointments Provider Department Dept Phone 04/15/2017 8:55 AM [facility] DX ROOM 6 [facility] Xray [phone] Please go to Herbarium Worker Area 3T ([place] Location). 04/15/2017 9:40 AM Abel Delvalle MD Sp[facility] Center [phone] Primary Care Provider: Susie López APRN [phone] Discharge References/Attachments None documented in this encounter Discharge Instructions Discharge InstructionsSheila Brown PA - 03/24/2017 11:18 AM EDT Activity: 1. You may perform your daily activities as tolerated but minimize bending at the waist greater than90 degrees, twisting around your waist, or lifting anything heavier than 5-10 lbs (about a full gallon of water.) 2. In general, guide your activity by the thought that if it hurts, don???t do it. 3. In addition, we recommend taking several walks every day after surgery and gradually increasing your distance and duration over the next 2-4 weeks. Diet: 1. Eat your normal diet, with adequate amounts of protein and fiber. 2. The pain medications you are taking can cause constipation, so increase your intake of fluids andfiber while you are taking them. 3. You should also take an qfkq-swr-qxkugdk stool softener or laxative, such as Yessica-colace or Miralax, to facilitate a bowel movement. Drivin. You are not allowed to drive if you are still requiring narcotic pain medication to manage your discomfort. Medication: 1. You are being discharged on a narcotic pain medication. Common side effects of this medication include drowsiness, nausea, and constipation. You should only take the smallest amount of pain medication that adequately controls your pain. 2. You may take Tylenol (acetaminophen) around the clock as directed on the package to help reduce the amount of narcotic medication you need. Do not take more than 3,000mg of acetaminophen in a 24 hour period. 3. You have had a spinal fusion surgery. DO NOT take any nonsteroidal anti- inflammatory medication (NSAID) such as Aleve, Ibuprofen, Motrin, Naprosyn, or Advil. 4. If you need a renewal of your pain medication, please contact the Spine Center Prescription Line at [phone]. PRESCRIPTION RENEWAL REQUESTS CAN TAKE UP TO 3 DAYS TO FILL. YOU WILL BE REQUIRED TOPICK UP YOUR NARCOTIC REFILL PRESCRIPTION IN PERSON AT [facility] OR IT CAN BE MAILED TO YOUR PHARMACY. Soft collar for comfort. Wound Care/Shower/Bath: 1. You have absorbable sutures under your skin that do not need to be removed. They are covered by steri-strips, gauze and a clear plastic Tegaderm dressing. 2. This dressing should stay in place until 4 days after your surgery. After 4 days, on 03/27/2017, you may remove the dressing and leave the incision uncovered so long as there is no continued drainage. If there is drainage, you may replace the dressing with a clean, dry gauze held in place with tape.Any bandage over the incision should be dry at all times and should be replaced if wet. If the incision continues to drain 5 days after surgery, please call the Spine Center at the number below. 3. After the dressing is removed, 4 days after surgery, the paper strips (steri- strips) should be kept in place. After 14 days you can remove the remaining steri-strips if they have not fallen off already. 4. For the first 4 days after surgery, shower with the clear plastic Tegaderm dressing covering yourincision to keep it dry. After 4 days when the dressing has been removed, you may allow water to runover the incision when you shower but do not scrub the surrounding skin. Gently pat dry with a clean, dry towel after showering. 5. Do not soak the incision underwater (i.e. lakes, pools, hot tubs, bath tubs, etc.) for at least 4weeks until the incision has completely healed. PLEASE CALL US AT [phone] TO SPEAK WITH A SPINE CENTER NURSE IF YOU EXPERIENCE THE FOLLOWING: ?? Fevers greater than 101.5 degrees Fahrenheit ?? Chills or night sweats ?? Nausea or vomiting ?? Wound Redness or drainage after 5 days ?? New numbness or tingling in your hands or feet ?? Incontinence of bowel or bladder ?? Any questions or concerns Important Phone Numbers: Clinical issues, nurse questions: [phone] Medication renewals: [phone] Delvalle: [phone] Evenings after 5pm and weekends you may contact the Orthopaedic resident car electronics installer: [phone], ask the studio control operator to page the Orthopaedic resident Follow Up Appointments: 1. You will have follow-up appointments at [facility] as indicated in the ???Future Appointments and Orders?? section of your discharge summary. If X-rays have been ordered for you prior to this appointmentyou will need to report to the Radiology department, desk 3T, 1 hour prior to your spine center appointment. Future Appointments Date Time Provider Department Center 04/15/2017 8:55 AM [facility] DX ROOM 6 X[facility] [place] [facility] 04/15/2017 9:40 AM Abel Delvalle MD [facility] [place] [facility] documented in this encounter Medications at Time [...] mg tylenol in a 24 hour period. oxyCODONE (ROXICODONE) 5 Take 1-2 tablets 20 tablet 0 03/2406/17/2017 mg Tablet by mouth every 4 hours as needed for Pain. Take the smallest dose possible to control your pain. As your pain improves take smaller, less frequent doses. You may break the tablet to achieve a smaller dose. polyethylene glycol Take 17 g by mouth 0 03/24/20 17 04/15/2017 (MIRALAX) 17 gram Powder 2 times daily as in Packet needed (bowel regimen/constipato n). senna-docusate Take 2 tablets by 60 tablet 2 03/24/2017 (PERICOLACE) 8.6-50 mg mouth 2 times Tablet daily. Bowel regimen while on narcotics. gabapentin (NEURONTIN) Take 2 capsules by 540 capsule 3 01/2702/11/2018 300 mg Capsule mouth 3 times daily. EPINEPHrine (EPIPEN) 0.3 Inject 0.3 mLs 2 each 1 017 03/15/2019 mg/0.3 mL Auto-Injector into the muscle once as needed. vitamin E 400 unit Take 400 Units by 0 09/02/2017 Capsule mouth 2 times daily. documented as of this encounter Progress Notes Nilda Lindquist RN - 03/24/2017 11:59 AM EDT Patient discharge to home. IV removed, site benign. RN Discussed pain management with patient, pain tolerable. Patient medicated prior to discharge. Discussed activity precautions, diet, discharge medications and follow up appointments. Patient has all belongings and supplies needed. Patient received After Visit Summary and prescriptions were sent to pharmacy. These were reviewed, patient verbalizes understanding of AVS. All questions answered. Patient encouraged to call with questions or concerns. Patient discharged to home with family. Nilda Lindquist RN Ivan Sterling MD - 03/24/2017 6:02 AM EDT .Orthopaedic Spine Inpatient Progress Note Fely Shaw is a 56 y.o. female who was admitted after a C7-T1 on 03/23/2017 Subjective: Admitted post-operatively after the above stated procedure. No acute events overnight. Pain remains well controlled. Patient states that prior to surgery, was experiencing mainly weakness in the hands (intrinsics) and pain originating in the neck and radiating down to the small and ring finger. This pain has now completely resolved. Tolerating PO diet well with no dysphagia. Denies chest pain, shortness of breath, nausea and vomiting. Denies new neurologic complaints in her bilateral upper and lowerextremities. No dysphagia, trouble swallowing or difficulty breathing. No vision changes. Has been up out of bed already and ambulated without difficulty. Objective: Temp: [36.6 ??C (97.9 ??F)-37.2 ??C (99 ??F)] Heart Rate: [67-78] Resp: [12-22] BP: (124-157)/(64-103) SpO2: [91 %-100 %] Heart Rate from SPO2: [67 bpm-88 bpm] I/O last 3 completed shifts: In: 2590 [P.O.:1790; I.V.:800] Out: 2475 [Urine:2425; Blood:50] I/O this shift: In: - Out: 900 [Urine:900] Drain out Physical Exam: General: Well appearing, no acute distress Cardio Vascular: RRR checked peripherally Abdomen: soft, non-tender, non-distended Neck: Cervical collar in place. Dressing clean dry and intact CN II-XII intact Left Upper Extremity: 2+ radial pulse Intact in C6-T1 dermatomes Right Upper Extremity: 2+ radial pulse Intact in C6-T1 dermatomes Left Lower Extremity: DP/PT pulses 2+. Sensation intact in L1-S1 dermatomes Right Lower Extremity: Right hip dressing is c/d/i DP/PT pulses 2+. Sensation intact in L1-S1 dermatomes in bilateral lower extremities. Motor: Segment Muscle Action L R C5 Deltoid Shoulder Abd 5 5 C5 Biceps Elbow flexion 5 5 C6 ECRL, ECRB Wrist extension 5 5 C7 Triceps Elbow extension 5 5 C8 Hand Grasp 4 4 T1 Hand intrinsics Finger abd/adduction 4 4 L2 Iliopsoas Hip flexion 5 5 L3 Quadriceps Knee extension 5 5 L4,5 Hamstring Knee Flexion 5 5 L4 Tibialis anterior Dorsiflexion 5 5 L5 Extensor hallucis Great toe extension 5 5 S1 Gastrocnemius, FHL Plantar flexion 5 5 Laboratory Last 3 wbc, hgb, hct plt Recent Labs 03/24/17 0400 03/13/17 1434 WBC 9.8* 6.6 HGB 13.8 13.9 HCT 39.8 42.4 PLATELET 212 240 Last 3 Lytes Recent Labs 03/24/17 0400 03/13/17 1434 NA 140 144 K 4.2 4.3 CL 100 104 CO2 26 25 BUN 10 16 CREATININE 0.65* 1.14 Imaging: XR cervical spine - intact hardware and alignment with no evidence of hardware complication Assessment: 56 y.o. female s/p ACDF C7-T1. doing well post-op. Labs stable this morning and pain remains well controlled. Will plan to continue to mobilize today. Needs PT and OT evaluation. Likely discharge home later today. Follow-up with Dr. Delvalle as scheduled. Plan: ?? Mobilize with Physical Therapy - Ambulate as tolerated, no lifting, twisting or bending ?? C-collar for comfort if patient wishes ?? Change dressing daily, starting POD #4 prn saturation. ?? Antibiotics x 24 hours ?? Pain Control: transition to PO pain meds ?? DVT Prophalaxis: mechanical ?? Wound closed with monocryl and steri-strips (neck). Right hip wound closed with monocryl and Dermabond. ?? Discharge Planning: Home vs rehab per PT final recommendations. ?? Follow up in 4-6 weeks in the [facility] with AP/Lateral cervical spine x-rays. Future Appointments Date Time Provider Department Center 04/15/2017 8:55 AM [facility] DX ROOM 6 Xray [facility] 04/15/2017 9:40 AM Abel Delvalle MD [facility] IVANBOOGIE STERLING MD 03/24/2017 Associated attestation - Abel Delvalle MD - 03/24/2017 7:06 AM EDT Attending Note / Addendum: Abel Delvalle MD MS I have reviewed the resident's note above and I agree with details as written. The assessment and plan were formulated in discussion with me and I agree with them as documented. Brief History: S/p C7-T1 ACDF Autograft. Exam: Intact. Improved. Imaging: Construct in good position. Dx: CR left IO weakness Plan: Mobilize. D/c today. F/u: Continue OT PT. F/u 2 weeks AP LAT cervical spine. Abel Delvalle MD MS Treating Engineer Helper - Orthopedic Spine Surgery / [facility] Loom Fixer Supervisor - Department of Orthopedic Surgery / Academics and [employer] Draw End Hand - [facility] [employer] 03/24/2017 Nilda Lindquist RN - 03/23/2017 12:35 PM EDT [facility] transport from PACU s/p ACDF C7-T1 with right illiac crest bone graft.Patient AOx 4, VSS, +csmt to all extremities. Dressing clean dry and intact to anterior neck and right anterior hip. Pain3/10 at this time, patient states this is a tolerable level and denies need for PRN medications at this time. Patient and spouse Joshua oriented to room, Will continue to monitor Nilda Lindquist RN Naya Jeronimo RN - 03/23/2017 12:05 PM EDT Pt resting quietly. Family at bs. Pt sitting up in bed, states numbness is going away. Pt states pain is tolerable. Report to Rafa Rowe RN. Petey Coates RN - 03/23/2017 11:01 AM EDT 1101: Break relief; pt resting quietly; VSS; pt to 2L NC Ofelia Estrada MD - 03/23/2017 11:00 AM EDT Orthopaedic Surgery Post-Operative Progress Note Patient Name: Fely Shaw Age: 56 y.o. Surgery/Issue: Cervical Radiculopathy Procedure(s): ACDF C7-T1 with instrumentation and iliac Crest Bone Graft Attending: Dr. Delvalle Date of surgery: 03/23/17 Subjective/Events: Patient denies numbness/weakness, chest pain, shortness of breath, dizziness, headache, nausea, vomiting. Patient and noted mild hoarseness that is improving with liquids, denies difficulty swallowing. Pain well-controlled. Patient unable to void in PACU so straight cath. Will attempt urinating again now that she is on the floor. Pre-op Symptoms: Pain and weakness in left arm and hand. Numbness and paresthesias in left 4th and 5th digits. Left thigh numbness and lateral left foot numbness. Pre-op symptoms currently present: Denies current numbness, pain, or paresthesias in the left hand or arm. Unchanged left thigh numbness and lateral left foot numbness. Objcetive: Temp: [36.6 ??C (97.9 ??F)-36.9 ??C (98.4 ??F)] Heart Rate: [67-78] Resp: [12-18] BP: (138-153)/(74-85) Intake/Output Summary (Last 24 hours) at 03/23/17 1100 Last data filed at 03/23/17 1046 Gross per 24 hour Intake 1040 ml Output 50 ml Net 990 ml Lab Results Component Value Date NA 144 03/13/2017 K 4.3 03/13/2017 CL 104 03/13/2017 CO2 25 03/13/2017 BUN 16 03/13/2017 CREATININE 1.14 03/13/2017 GLUCOSE 99 03/13/2017 CALCIUM 9.6 03/13/2017 Lab Results Component Value Date WBC 6.6 03/13/2017 HGB 13.9 03/13/2017 HCT 42.4 03/13/2017 MCV 92.4 03/13/2017 PLATELET 240 03/13/2017 Lab Results Component Value Date INR 0.9 03/13/2017 Exam: General: NAD, awake/alert, responds to questions Neck: Out of soft collar. dressing c/d/i. Small soft swelling under dressing. CV: RRR Resp: Breathing comfortably, lungs CTAB Right side hip dressing c/d/i, no hematoma. Neuro: CN II-XII intact. Motor: Segment Muscle Action R L C5 Deltoid Shoulder Abd 5 4 C5 Biceps Elbow flexion 5 4 C6 ECRL, ECRB Wrist extension 5 4 C7 Triceps Elbow extension 5 4 C8 Hand Grasp 5 5 T1 Hand intrinsics Finger abd/adduction 5 5 L2 Iliopsoas Hip flexion 5 5 L3 Quadriceps Knee extension 5 5 L4,5 Hamstring Knee Flexion 5 5 L4 Tibialis anterior Dorsiflexion 5 5 L5 Extensor hallucis Great toe extension 5 5 S1 Gastrocnemius, FHL Plantar flexion 5 5 Sensory: Sensation (light touch) (0=absent, 1=impaired, 2=normal) Segment location Right Left C4 top of AC joint 2 2 C5 lat side antecub fossa 2 2 C6 dorsal thumb 2 2 C7 dorsal middle finger 2 2 C8 dorsal small finger 2 2 T1 med side antecub fossa 2 2 T12 mid inguinal ligament 2 1 L1 upper inner thigh 2 1 L2 mid-ant thigh 2 1 L3 med femoral condyle 2 2 L4 medial mal 2 2 L5 dorsum foot, 3rd MT 2 2 S1 lat heal 2 1 S2 Popliteal fossa 2 2 Radiology: Post operative X Ray C-spine showing hardware in place. A/P: 56 y.o. female POD#0 s/p ACDF C7-T1 with improved symptoms of left hand weakness and paresthesias. Vitals stable. -Monitor incision and area for hematoma. -Ancef perioperatively -Activity as tolerated -PT/OT -Neurovascular checks -Pain control oxycodone and acetaminophen Ofelia Estrada MD [id number] Naya Jeronimo RN - 03/23/2017 10:51 AM EDT Pt a/o x3. Drsg to ant neck CDI. Site soft to palpate, trach midline. Pt able to communicate needs to me. Pt able to follow simple commands. Hand grasps moderate strength, R>L side as preop. Pt states numbness to fourth and fifth fingers to bilat hands, as preop. Pt with strong dorsal flexion and extension. States normal sensation to bilat LE. Will continue to monitor. documented in this encounter H&P Notes Ivan Sterling MD - 03/23/2017 7:00 AM EDT 24-Hour Pre-Operative H&P Update Fely Garcia Colin 1960 [id number] Patient seen in pre-op holding area today. There are no clinically significant changes to the patient's viviane since the original H&P. Patient denies any recent fevers or chills. The patient is ready to proceed with the planned surgical procedure today. Surgical consent form reviewed. Operative site marked. All questions sought and answered. Ivan Sterling MD Orthopaedic Surgery Source Note - Ivan Sterling MD - 03/23/2017 6:29 AM EDT Patient Name: Fely Shaw Patient Age: 56 y.o. Birthdate: 1960 Admit date: 03/23/2017 Attending Physician: Abel Delvalle MD Please see pre-op H&P as completed by PCP on 03/13/2017 and in Amb Notes Ivan Sterling MD Orthopaedic Surgery Ivan Sterling MD - 03/23/2017 6:29 AM EDT Patient Name: Fely Shaw Patient Age: 56 y.o. Birthdate: 1960 Admit date: 03/23/2017 Attending Physician: Abel Delvalle MD Please see pre-op H&P as completed by PCP on 03/13/2017 and in Amb Notes Ivan Sterling MD Orthopaedic Surgery documented in this encounter Miscellaneous Notes Initial Assessments - Vijaya Loja RN - 03/24/2017 12:14 PM EDT Office of Care Management Initial Assessment VIJAYA LOJA RN reviewed record and discussed patient with Care Team. Source of Information: eDH and patient Introduced self/reviewed role; services accepted. Reason for Hospitalization:56 y.o. female POD#0 s/p ACDF C7-T1 with improved symptoms of left hand weakness and paresthesias. Past Medical History: Diagnosis Date ??? Lumbosacral spondylosis without myelopathy 06/23/2014 Hospitalizations Within the Past 30 Days: No Anticipated Length Of Stay (If known): 1 day Current Decision-Making Capacity: self Advance Care Planning: yes Current Coping/Education/Information Needs: Coping well at this time Current Functional Ability: has been OOB with soft collar and no walking aide Functional Status Prior to Admission: independent Home Environment: accessible Social & Family Supports/Community Resources: Extended Emergency Contact Information Primary Emergency Contact: Joshua Shaw Address: [address] [place], [place] [id number] [facility] Relation: Spouse Secondary Emergency Contact: tierra lipscomb [facility] Relation: Sibling Behavioral Health History: not discussed Substance Use/Abuse: not discussed Other Pertinent/Service Specific Information: None Health/Prescription Coverage: Primary Insurance: Payor: WO Funding MUTUAL WC / Plan: WC LIBERTY MUTUAL / Product Type: *No Product type* / Secondary Insurance: Prescription Coverage: see above Preferred Pharmacy: [id number] [place] [address] [place], [place] - [address] [place] [address] [place] [address] [place] [id number] [facility] [id number] Other: None Primary Care Provider: Susie López APRN [phone] Patient/Caregiver Goals of Treatment: Safe discharge Potential Needs for Transition of Care: Rehab/SNF: no Home Health: no DME: no Dialysis: No Community Resources: No Transportation: spouse Other: None Anticipated Barriers to Discharge/Special Considerations: None Plan: no discharge needs identified anticipate d/c later this am. A member of the Care Management team will continue to monitor progress, follow for continuity of care and assist with transition of care planning. VIJAYA LOJA RN Pager: [phone] Plan of Care - Sunshine Joaquin OT - 03/24/2017 12:00 PM EDT Problem: Patient Care Overview Goal: Plan of Care Review Outcome: Ongoing (Interventions Implemented as Appropriate) 03/24/17 1313 Coping/Psychosocial Plan Of Care Reviewed With patient;spouse Plan of Care Review Progress progress toward functional goals as expected Occupational Therapy Evaluation Pertinent History of Current Problem: 56 y.o. female s/p ACDF C7-T1 Active Non-Hospital Problems Diagnosis ??? Milium ??? Left-sided muscle weakness ??? Neck pain ??? Cervical disc disorder with radiculopathy of mid-cervical region ??? Biceps rupture, proximal ??? Acute pain of left shoulder ??? Lumbosacral spondylosis without myelopathy ??? Lumbar strain ??? Lower back pain ??? Finger sprain ??? Left knee pain ??? 12/11/10 ARTHROSCOPY KNEE,MENISCECTOMY SINGLE WITH SHAVING OSC /LEFT/LATERAL Precautions/Restrictions: spinal Precautions Comments: No bending, lifting, twisting Living Environment Comment: lives in one level home; flight of stairs to enter; walk in shower with non-slip bibi. Prior Functional Level Comment: Pt has been working PT since September; hopes to work FT. Pt indepndent with ADL/IADL at BL Assessment: Pt has been seen by OT for evaluation, please refer to associated flowsheet data for details. Pt demonstrates the ability to perform basic ADL???s independently without AE, LOB, or c/o increased pain or fatigue. Pt educated on spine precautions and verbalized understanding. Pt will have assist of spouse at home for IADL tasks as needed. Pt ambulating within room to gather ADL items without AD for balance. Anticipate that pt will return home once medically ready for discharge. Do not anticipate further OT needs while hospitalized. Anticipated Equipment Needs at Discharge: (none) Anticipated Discharge Disposition: home Pager: [phone] Sunshine Joaquin OT 03/24/2017 Occupational Therapy Rehabilitation Department 2017 OT Evaluation Code Rationale: ?? Diagnosis & Pertinent Co-Morbidities affecting Plan of Care: see PMHx above ?? Clinical presentation: Stable Evolving Unstable x ?? Occupational Profile & Client History: Brief Expanded Extensive x ?? Assessment of Occupational Performance: 1-3 performance deficits x 3-5 performance deficits 5 + performance deficits Clinical decision making of low complexity using standardized patient assessment instrument and measurable assessment of functional outcome. Plan of Care - Chloe Garcia, PT - 03/24/2017 12:00 PM EDT Problem: Patient Care Overview Goal: Plan of Care Review Outcome: Outcome (s) achieved Date Met: 03/24/17 03/24/17 2348 Coping/Psychosocial Plan Of Care Reviewed With patient;spouse Physical Therapy Note Pt Profile: S/p C7-T1 ACDF Autograft Precautions: Collar for comfort only; activity as tolerated Assessment: Pt seen for evaluation on . Pt is POD# 1. Order for collar only for comfort. Pt is indep with all trasnfer, gait and stairs today without LOB. Pain well controlled. From a PT standpoint, pt is safe for home d/c. Plan for d/c home today. Please see the Rehab Evaluation Summaries section for detailed objective data and specifics of today???s session. Therapy Frequency: evaluation only Anticipated Equipment Needs at Discharge: (none) Anticipated Discharge Disposition: home with assist; home today CHLOE GARCIA, PT Pager: [phone] Inpatient Physical Therapy Plan of Care - Paxton Cancino RN - 03/24/2017 4:38 AM EDT Problem: Patient Care Overview Goal: Plan of Care Review Outcome: Ongoing (Interventions Implemented as Appropriate) 03/23/17 1743 03/24/17 0300 Coping/Psychosocial Plan Of Care Reviewed With -- patient Plan of Care Review Progress progress toward functional goals as expected -- OUTCOME EVALUATION NOTE: OUTCOME SUMMARY: This patients skin remains intact at this time with no reddened areas. Pt currently repositioning self in bed every 2 hrs. Pt verbalizes understanding to reposition self every 2 hrs to prevent skin breakdown and alert nurse when help is needed to do so. Will continue to monitor. This patient reports that her pain is adequately managed with the ordered medication regiment. This patient denies chest pain, shortness of breath, and nausea. The patients dressing to the right hip and anterior neck remainsclean, dry, and intact. Last recorded vital signs: Last value Temperature Temp: 37.2 ??C (99 ??F) Heart Rate Heart Rate: 68 Blood Pressure BP: 125/68 Respiratory Rate Resp: 16 SpO2 SpO2: 91 % Recorded I/O: I/O this shift: In: - Out: 900 [Urine:900] PLAN MOVING FORWARD: The plan moving forward with this patient is to work with PT/OT to increase this patients independence with ADLs. INDIVIDUALIZED FALL PREVENTION INTERVENTIONS: Patient-specific fall risk factors per assessment: [current deficits]: This patient has decreased general mobility and sensory impairment in relation to receiving the medication Oxycodone. Assistance [level of assistance required for transfers and ambulation]: This patient requires 1 assist to ambulate. Supervision [direct monitoring required during toileting and ADLs]: This patient requires 1 assist with ADLs. Surveillance [continuous indirect monitoring]: Brice, nursing knowledge exchange, purposeful rounding. Patient has history of: Past Medical History: Diagnosis Date ??? Lumbosacral spondylosis without myelopathy 06/23/2014 Past Surgical History: Procedure Laterality Date ??? BACK SURGERY 2013 see neuro notes ??? LAMINOTOMY Left 2013 [facility] Patient has following SCHEDULED medications: ??? gabapentin 600 mg Oral TID ??? sodium chloride 0.9 % 5 mL Intravenous BID ??? polyethylene glycol 17 g Oral BID ??? senna-docusate 2 tablet Oral BID ??? multivitamin Dmto-Uc-HU-Min 1 tablet Oral Daily ??? acetaminophen 1,000 mg Oral Q8H ARELI Patient has following PRN medications: bacitracin, gelatin adsorbable 100, thrombin (Bovine), sodium chloride 0.9 %, lidocaine, ondansetron, oxyCODONE OR oxyCODONE OR oxyCODONE CPG GOAL OUTCOME EVALUATION: Goal: Individualization & Mutuality Outcome: Ongoing (Interventions Implemented as Appropriate) 03/24/17 0435 Individualization Patient Specific Goals Pain management Patient Specific Interventions Pain managed Goal: Fall Prevention-Safe Patient Handling Outcome: Ongoing (Interventions Implemented as Appropriate) 03/24/17 0300 Robbins Fall Risk History of Falling 0 Secondary Diagnosis 0 Ambulatory Aids 0 Intravenous Therapy/Heparin/Saline Lock 20 Gait/Transferring 0 Mental Status 0 Score 20 OTHER Robbins Fall Risk Low Restraint Interventions Safety Promotion/Fall Prevention activity supervised;fall prevention program maintained;nonskid shoes/slippers when out of bed Positioning Body Position independent Goal: Infection Control Outcome: Ongoing (Interventions Implemented as Appropriate) 03/24/17 0300 Safety Interventions Isolation Precautions standard precautions maintained Infection Prevention environmental surveillance performed;rest/sleep promoted Coping Strategies Supportive Measures active listening utilized;goal setting facilitated;problem solving facilitated Goal: Discharge Needs Assessment Outcome: Ongoing (Interventions Implemented as Appropriate) 03/24/17434 Discharge Needs Assessment Concerns To Be Addressed no discharge needs identified Readmission Within The Last 30 Days no previous admission in last 30 days Equipment Needed After Discharge none Current Health Anticipated Changes Related to Illness none Activity/Self Care Review of Systems Equipment Currently Used at Home none Living Environment Transportation Available family or friend will provide Problem: Pain, Acute (Adult) Goal: Identify Related Risk Factors and Signs and Symptoms Related risk factors and signs and symptoms are identified upon initiation of Human Response Clinical Practice Guideline (CPG) Outcome: Ongoing (Interventions Implemented as Appropriate) 03/24/17434 Pain, Acute Related Risk Factors (Acute Pain) surgery Signs and Symptoms (Acute Pain) moaning;pacing/restlessness Goal: Acceptable Pain Control/Comfort Level Patient will demonstrate the desired outcomes by discharge/transition of care. Outcome: Ongoing (Interventions Implemented as Appropriate) 03/24/17434 Pain, Acute (Adult) Acceptable Pain Control/Comfort Level making progress toward outcome Problem: Skin Integrity Impairment, Risk/Actual (Adult) Goal: Identify Related Risk Factors and Signs and Symptoms Related risk factors and signs and symptoms are identified upon initiation of Human Response Clinical Practice Guideline (CPG) Outcome: Ongoing (Interventions Implemented as Appropriate) 03/24/17434 Skin Integrity Impairment, Risk/Actual Skin Integrity Impairment, Risk/Actual: Related Risk Factors surgery/procedure Goal: Skin Integrity/Wound Healing Patient will demonstrate the desired outcomes by discharge/transition of care. Outcome: Ongoing (Interventions Implemented as Appropriate) 03/24/17434 Skin Integrity Impairment, Risk/Actual (Adult) Skin Integrity/Wound Healing making progress toward outcome Plan of Care - Nilda Lindquist RN - 03/23/2017 5:48 PM EDT Problem: Patient Care Overview Goal: Plan of Care Review Outcome: Ongoing (Interventions Implemented as Appropriate) 03/23/17 4550 Coping/Psychosocial Plan Of Care Reviewed With patient;spouse Plan of Care Review Progress progress toward functional goals as expected OUTCOME EVALUATION NOTE: OUTCOME SUMMARY: Patient arrived from PACU s/p ACDF at C7-T1 with Right iliac crest bone graft. VSS, on room air, rating pain at 0/10 after 5mg oxycodone and scheduled tylenol. Up to the bathroom with 1A, voiding adequately, tolerating regular diet. Dressings CDI PLAN MOVING FORWARD: Monitor anterior cervical incision for swelling INDIVIDUALIZED FALL PREVENTION INTERVENTIONS: Patient-specific fall risk factors per assessment: [current deficits]: Surgery, narcotics Assistance [level of assistance required for transfers and ambulation]: 1-assist Supervision [direct monitoring required during toileting and ADLs]: Stand by Surveillance [continuous indirect monitoring]: Masimo, hourly rounding Patient-specific fall prevention interventions for sensory deficits provided, if applicable: [X] Yes CPG GOAL OUTCOME EVALUATION: Op Note - Abel Delvalle MD - 03/23/2017 10:52 AM EDT [facility] [place] Patient Name: Fely Shaw : [id number] MR#: [id number] Case Date: 03/23/2017 Surgeon: Surgeon(s) and Role: * Abel Delvalle MD - Primary * Ivan Sterling MD Preoperative diagnosis: Cervical Radiculopathy Postoperative diagnosis: Cervical Radiculopathy Procedure(s) (LRB): ARTHRODESIS, ANT INTERBODY,DECOMPRESSION; CERVICAL BELOW C2 (WRVU 25) (Bilateral) INSERTION INTERBODY BIOMECH DEV TO INTERVEBRAL DISC SPACE, EA INTERSPACE (WRVU 4.25) (Bilateral) AUTOGRAFT FOR SPINE SURGERY ONLY; MORSELIZED (THROUGH SEPARATE SKIN OR FASCIAL INCISION) (WRVU 2.79)(Bilateral) ANT. SPINAL INSTRUMENTATION, 2-3 VERTEBRA, SEGMENTED (WRVU 11.94) (Bilateral) MODIFIER GLOBUS [place] (Bilateral) MODIFIER C7 (Bilateral) MODIFIER C8 (Bilateral) MODIFIER T1 (Bilateral) Anesthesia: General Estimated Blood Loss: 50 mL Specimens removed during surgery: None Drains: Y Surgical Closure: Primary Closure - closure of ALL tissue levels during the original surgery regardless of wires, wickes, drains, or other devices extruding through the incision Disposition: awakened from anesthesia, extubated and taken to the recovery room in a stable condition, having suffered no apparent untoward event. Condition: doing well without problems (Please see the Surgical Encounter Summary for any Implant and Specimen details pertinent to this patient.) HPI/Surgical Indications: See below Procedure Description: INDICATIONS: This is a patient with cervical radiculopathy. R/B were disccussed which included adjacent segment degeneration, nonunion, hardware problems, persistent symptoms, dysphagia as well as other. All questions were answered. PROCEDURE: 1. ACDF C7-T1 - , . 2. Application of interbody cage - . 3. Anterior instrumentation C7 4. Iliac Crest Bone Graft Separate Incision Instrumentation: Globus [place] plate PEEK cage DESCDRIPTION OF PROCEDURE: The patient was brought back to the operative theater. General endotracheal intubation was accomplished. He was placed supine. The patient was placed in the usual standard position, prepped and draped sterilely, time-out was performed and confirmed. An incision was made on the right side of the neck and taken down through the platysma. Blunt dissection provided adequate exposure. The level was identified with x-ray. The longus coli was raised from medial to lateral. Osteophytes were removed. Self-retaining retractors were placed in the anterior cervical spine. Anterior cervical diskectomy and arthrodesis C7-1: The disk was incised, osteophytes were removed. Curettes were utilized to remove the disk and prepare the endplates. This was taken down to the posterior disc / osteophyte. This wasthen it was removed. The posterior longitudinal ligament was removed. The posterior 1/3 of th uncinate processes were removed. The endplates were prepared and the interbody cage was placed after trials were utilized to find the appropriate finding. Application of interbody cage: As noted above. Anterior instrumentation C7-1: An anterior [place] plate was placed down on the anterior cervical spine. Variable angled screws were placed in C7 and T1, 14-mm in length. X-ray confirmed adequate placement of the hardware. Iliac Crest Bone Graft Morselized Separate Incision: An incision was made two fingerbreaths posterior superior iliac spine. Taken directly down to bone. A anthony hole was made through cortex. Specializedminimally invasive instruments were utilized to remove a core of cancellous bone. Irrigation was utilized. Hemostasis obtained. Wound closed in layers. Bone used in the interbody cage. Closure: A drain was placed deep. The platysma was reapproximated. The wound was closed in layers. Sterile dressing was applied. The patient was extubated to the PACU in good condition. Infection Bundle used? No Attestation: Case Date: 03/23/2017 I was present and I participated during the entire procedure (does not need to include opening and closing). Abel Delvalle MD 03/23/2017 Brief Op Note - Abel Delvalle MD - 03/23/2017 10:52 AM EDT Brief Operative Note Patient Name: Fely Shaw : [id number] MR#: [id number] Case Date: 03/23/2017 Surgeon: Surgeon(s) and Role: * Abel Delvalle MD - Primary * Ivan Sterling MD Preoperative diagnosis: Cervical Radiculopathy Postoperative diagnosis: Cervical Radiculopathy Procedure(s) (LRB): ARTHRODESIS, ANT INTERBODY,DECOMPRESSION; CERVICAL BELOW C2 (WRVU 25) (Bilateral) INSERTION INTERBODY BIOMECH DEV TO INTERVEBRAL DISC SPACE, EA INTERSPACE (WRVU 4.25) (Bilateral) AUTOGRAFT FOR SPINE SURGERY ONLY; MORSELIZED (THROUGH SEPARATE SKIN OR FASCIAL INCISION) (WRVU 2.79)(Bilateral) ANT. SPINAL INSTRUMENTATION, 2-3 VERTEBRA, SEGMENTED (WRVU 11.94) (Bilateral) MODIFIER GLOBUS PROVIDENCE (Bilateral) MODIFIER C7 (Bilateral) MODIFIER C8 (Bilateral) MODIFIER T1 (Bilateral) Anesthesia: General Findings: c/w disease Complications: None noted Fluids: See anesthesia record Intraprocedure Crystalloid Total None Estimated Blood Loss: 50 mL Drains: Y Disposition: awakened from anesthesia, extubated and taken to the recovery room in a stable condition, having suffered no apparent untoward event. Condition: doing well without problems Infection Bundle used? No Attestation: Case Date: 03/23/2017 I was present and I participated during the entire procedure (does not need to include opening and closing). (Please see the Surgical Encounter Summary for any Implant and Specimen details pertinent to this patient.) documented in this encounter Plan of Treatment Upcoming Encounters Date Type Specialty Care Team Description 08/07/2022 [facility] Nahid Carl PsyD (TeleHealth) [address] [facility] [address] [place], [place] [address] (Wo rk) documented as of this encounter Procedures Procedure Name Priority Date/Time Associated Diagnosis Comme nts CUTTING MACHINE OPERATOR SCAN 03/25/2017 12:00 Res ults for this AM EDT procedure are i n the results section. HEMOGRAM Routine 03/24/2017 4:00 AM Results f or this EDT procedure are i n the results section. DIFFERENTIAL, Routine 03/24/2017 4:00 AM Results for this AUTOMATED EDT procedure are i n the results section. CBC (WITH DIFF) Routine 03/24/2017 4:00 AM EDT BASIC METABOLIC Routine 03/24/2017 4:00 AM Result s for this PANEL (NON-FASTING) EDT procedur e are in the results section. XR CERVICAL SPINE 2 Routine 03/23/2017 12:28 Resu lts for this OR 3 VIEWS PM EDT procedure are i n the results section. XR CERVICAL SPINE 1 Routine 03/23/2017 9:37 AM Re sults for this VIEW EDT procedure are i n the results section. XR CERVICAL SPINE 1 Routine 03/23/2017 8:51 AM Re sults for this VIEW EDT procedure are i n the results section. XR CERVICAL SPINE 1 Routine 03/23/2017 8:25 AM Re sults for this VIEW EDT procedure are i n the results section. MODIFIER T1 Yes 03/23/2017 7:33 AM Cervical disc EDT disorder with radiculopathy of mid-cervical region MODIFIER C8 Yes 03/23/2017 7:33 AM Cervical disc EDT disorder with radiculopathy of mid-cervical region MODIFIER C7 Yes 03/23/2017 7:33 AM Cervical disc EDT disorder with radiculopathy of mid-cervical region MODIFIER GLOBUS Yes 03/23/2017 7:33 AM Cervical disc PROVIDENCE EDT disorder with radiculopathy of mid-cervical region ANT. SPINAL Yes 03/23/2017 7:33 AM Cervical disc INSTRUMENTATION, 2-3 EDT disorder with VERTEBRA, SEGMENTED radiculopathy of (WRVU 11.94) mid-cervical region AUTOGRAFT FOR SPINE Yes 03/23/2017 7:33 AM Cervical disc SURGERY ONLY; EDT disorder with MORSELIZED (THROUGH radiculopathy of SEPARATE SKIN OR mid-cervical region FASCIAL INCISION) (WRVU 2.79) INSERTION INTERBODY Yes 03/23/2017 7:33 AM Cervical disc BIOMECH DEV TO EDT disorder with INTERVEBRAL DISC radiculopathy of SPACE, EA INTERSPACE mid-cervical region (WRVU 4.25) ARTHRODESIS, ANT Yes 03/23/2017 7:33 AM Cervical disc INTERBODY,DECOMPRESS EDT disorder with ION; CERVICAL BELOW radiculopathy of C2 (WRVU 25) mid-cervical region INSERTION INTERBODY Routine 03/23/2017 6:25 AM Cervical disc BIOMECH DEV TO EDT disorder with INTERVEBRAL DISC radiculopathy of SPACE, EA INTERSPACE mid-cervical region ANT. SPINAL Routine 03/23/2017 6:25 AM Cervical disc INSTRUMENTATION, 2-3 EDT disorder with VERTEBRA, SEGMENTED radiculopathy of mid-cervical region AUTOGRAFT FOR SPINE Routine 03/23/2017 6:25 AM Cervical disc SURGERY EDT disorder with ONLY;MORSELIZED radiculopathy of mid-cervical region documented in this encounter Results SCAN DOC: CUTTING MACHINE OPERATOR (03/25/2017 12:00 AM EDT) Narrative 03/25/2017 12:00 AM EDT This result has an attachment that is no t available. Ordered by an unspecified provider. Scanning Provider MEDIA MGR SCAN EXT ORDR/RSLT (ABNORMAL) Differential, Automated (03/24/2017 4:00 AM EDT) [facility] Method Time Signature Neutrophils % 68.1 % [facility] Neutr Abs (ANC) 6.69 (H) 1.70 - [facility] 6.10 [facility] x10(3)/[facility] L LABORATORY Lymphocytes % 21.6 % [facility] Lymphocytes Abs 2.1 0.9 - 3.2 [facility] x10(3)/[facility] LABORATORY Monocytes % 9.6 % [facility] Monocyte Abs 0.9 0.3 - 0.9 [facility] x10(3)/[facility] LABORATORY Eosinophils % 0.2 % [facility] Eosinophils Abs 0.0 0.0 - 0.4 [facility] x10(3)/[facility] LABORATORY Basophils % 0.2 % [facility] Basophils Abs 0.0 0.0 - 0.1 [facility] x10(3)/[facility] LABORATORY Immature Gran % 0.30 % [facility] Comment: Immature granulocytes(IG's)percentage an d absolute count will include metamyelocytes, myelocytes, and promyelo cytes. Blood smears from CBCs yielding IG's will be scanned manually for concor dance. If this scan disagrees with the automated IG or if promyelocytes are not ed, a manual differential will be performed. Archana Gran Abs 0.03 0.00 - 0.04 x10(3)/[facility] Specimen Anatomical Collection Method Collection Time Receive d Time (Source) Location / / Volume Laterality Blood specimen 03/24/2017 4:00 AM 017 4:21 (specimen) EDT AM EDT Resulting Agency Comment Spec In Lab Abel Delvalle MD HEMATOLOGY ORDERABLES Performing Organization Address City/State/[place] [address] (ABNORMAL) Hemogram (03/24/2017 4:00 AM EDT) P athologist Signature WBC 9.8 (H) 4.0 - 9.5 [facility] x10(3)/[facility] LABORATORY RBC 4.48 4.00 - [facility] 5.21 [facility] x10(6)/[facility] LABORATORY Hemoglobin 13.8 11.7 - [facility] 15.5 gm/dL [facility] Hematocrit 39.8 35.7 - [facility] 45.8 % [facility] MCV 88.8 82.6 - [facility] 94.4 [facility] LABORATORY MCH 30.8 27.1 - PEG NATALIE 32.0 pg [facility] MCHC 34.7 31.7 - [facility] 35.0 gm/dL [facility] Platelets 212 145 - 357 [facility] x10(3)/[facility] LABORATORY RDWSD 38.3 37.0 - [facility] 46.0 [facility] LABORATORY RDWCV 11.9 11.5 - [facility] NATALIE 14.1 % [facility] MPV 9.0 7.6 - 12.9 [facility] LABORATORY nRBC % Auto 0.0 % [facility] nRBC Abs Auto 0.000 0.000 - [facility] 0.000 [facility] x10(3)/[facility] LABORATORY Specimen Anatomical Collection Method Collection Time Receive d Time (Source) Location / / Volume Laterality Blood specimen 03/24/2017 4:00 AM 017 4:21 (specimen) EDT AM EDT Resulting Agency Comment Spec In Lab Abel Delvalle MD HEMATOLOGY ORDERABLES Performing Organization Address City/State/[place] [address] (ABNORMAL) Basic Metabolic Panel (non-fasting) (03/24/2017 4:00 AM EDT) P athologist Signature Glucose Lvl 109 65 - 199 [facility] mg/dL [facility] Comment: Diabetes: >=200 mg/dL plus symp toms BUN 10 8 - 18 mg/dL [facility] Creatinine 0.65 (L) 0.70 - 1.20 mg/dL [facility] Comment: Please note that the pediatric reference intervals supplied above were not validated at [facility]. Results from pediatri c patients should be interpreted in conjunction to the patient's age, height and muscle mass. Sodium 140 135 - 145 mmol/L [facility] Potassium 4.2 3.5 - 5.0 mmol/L [facility] Comment: Please note: ??Patients with WBC >100,00 0 may have falsely elevated Potassium levels. ??For accurate Potassium quantif ication in these patients send serum separator tube (gold top) for subsequent determinations. ??Contact the Clinical Chemistry Laboratory if there are any qu estions. Chloride 100 98 - 107 mmol/L [facility] CO2 26 22 - 31 mmol/L [facility] Anion Gap 14 5 - 15 mmol/L [facility] Calcium 9.2 8.5 - 10.5 mg/dL [facility] Estimated GFR >60 >=60 [facility] Comment: This estimated [...] the following links into your internet browser. [email or web address] Specimen Anatomical Collection Method Collection Time Receive d Time (Source) Location / / Volume Laterality Blood specimen 03/24/2017 4:00 AM 017 4:21 (specimen) EDT AM EDT Resulting Agency Comment Spec In Lab Abel Delvalle MD CHEMISTRY ORDERABLES Performing Organization Address City/State/[place] [address] XR Cervical Spine 2 Or 3 Views (03/23/2017 12:28 PM EDT) Anatomical Region Laterality Modality C-spine N/A Digital Radiography Specimen (Source) Anatomical Location Collection Method / Collectio n Time Received Time / Laterality Volume Impressions 03/23/2017 2:36 PM EDT No change in position or integrity of anterior cervical fusion hardware. Narrative 03/23/2017 2:36 PM EDT EXAMINATION: XR CERVICAL SPINE 2 OR 3 VIEWS CLINICAL HISTORY: s/p ACDF C7-T1 TECHNIQUE: AP and lateral cervical spine COMPARISON: 03/23/2017 at 0929 hours FINDINGS: The previously seen endotracheal tube an d esophageal probe have been removed. There is no change in the position and i ntegrity of the anterior fusion plate and screws bridging C7 and T1. Again not ed is multilevel degenerative disc disease with 1 to 2 mm of retrolisthesis of C5 on C6. Procedure Note Ghulam Shaw MD - 03/23/2017Formatt ing of this note might be different from the original. EXAMINATION: XR CERVICAL SPINE 2 OR 3 EWS CLINICAL HISTORY: s/p ACDF C7-T1 TECHNIQUE: AP and lateral cervical spine COMPARISON: 03/23/2017 at 0929 hours FINDINGS: The previously seen endotracheal tube an d esophageal probe have been removed. There is no change in the position and i ntegrity of the anterior fusion plate and screws bridging C7 and T1. Again not ed is multilevel degenerative disc disease with 1 to 2 mm of retrolisthesis of C5 on C6. IMPRESSION No change in position or integrity of an terior cervical fusion hardware. Abel Delvalle MD IMG DX ORDERABLES XR Cervical Spine 1 View (03/23/2017 9:37 AM EDT) Anatomical Region Laterality Modality C-spine N/A Digital Radiography Specimen (Source) Anatomical Location Collection Method / Collectio n Time Received Time / Laterality Volume Impressions 03/23/2017 9:48 AM EDT New anterior fusion hardware at C6-7 without complication. Narrative 03/23/2017 9:48 AM EDT EXAMINATION: XR CERVICAL SPINE 1 VIEW CLINICAL HISTORY: Cervical Radiculopathy TECHNIQUE: Portable crosstable lateral cervical spi ne in OR COMPARISON: 03/23/2017 at 0846 hours FINDINGS: There is new plate and screw anterior fu jenniffer where spanning C6-7. There is no change in the alignment of the cervical spine and the fusion hardware is intact. Again noted is multilevel degenerative d isc disease with 1 to 2 mm of retrolisthesis of C5 on C6. Procedure Note Ghulam Shaw MD - 03/23/2017Formatt ing of this note might be different from the original. EXAMINATION: XR CERVICAL SPINE 1 VIEW CLINICAL HISTORY: Cervical Radiculopathy TECHNIQUE: Portable crosstable lateral cervical spi ne in OR COMPARISON: 03/23/2017 at 0846 hours FINDINGS: There is new plate and screw anterior fu jenniffer where spanning C6-7. There is no change in the alignment of the cervical spine and the fusion hardware is intact. Again noted is multilevel degenerative d isc disease with 1 to 2 mm of retrolisthesis of C5 on C6. IMPRESSION New anterior fusion hardware at C6-7 wit hout complication. Abel Delvalle MD [facility] DX ORDERABLES XR Cervical Spine 1 View (03/23/2017 8:51 AM EDT) Anatomical Region Laterality Modality C-spine N/A Digital Radiography Specimen (Source) Anatomical Location Collection Method / Collectio n Time Received Time / Laterality Volume Impressions 03/23/2017 9:02 AM EDT Marker at level of C7-T1. Narrative 03/23/2017 9:02 AM EDT EXAMINATION: XR CERVICAL SPINE 1 VIEW CLINICAL HISTORY: Cervical Radiculopathy TECHNIQUE: Audible crosstable lateral cervical spin e in OR COMPARISON: 03/23/2017 at 0819 hours FINDINGS: The tip of the metallic marker is superi mposed over the anterior aspect of the C7 T1 disc space. Again noted is multile sejal degenerative disc disease, most pronounced at C5-6 and C6-7. Procedure Note Ghulam Shaw MD - 03/23/2017Formatt ing of this note might be different from the original. EXAMINATION: XR CERVICAL SPINE 1 VIEW CLINICAL HISTORY: Cervical Radiculopathy TECHNIQUE: Audible crosstable lateral cervical spin e in OR COMPARISON: 03/23/2017 at 0819 hours FINDINGS: The tip of the metallic marker is superi mposed over the anterior aspect of the C7 T1 disc space. Again noted is multile sejal degenerative disc disease, most pronounced at C5-6 and C6-7. IMPRESSION Marker at level of C7-T1. Abel Delvalle MD [facility] DX ORDERABLES XR Cervical Spine 1 View (03/23/2017 8:25 AM EDT) Anatomical Region Laterality Modality C-spine N/A Digital Radiography Specimen (Source) Anatomical Location Collection Method / Collectio n Time Received Time / Laterality Volume Impressions 03/23/2017 9:01 AM EDT No radiopaque level marker. No change in appearance of cervical spin e. Narrative 03/23/2017 9:01 AM EDT EXAMINATION: XR CERVICAL SPINE 1 VIEW CLINICAL HISTORY: intraoperative level c onfirmation TECHNIQUE: Portable crosstable lateral cervical spi ne in OR COMPARISON: 10/30/2016 FINDINGS: No radiopaque level marker is present. T he spine is visible down to the level of C7. There is no interval change. Again n oted is multilevel degenerative disc disease with 1 to 2 mm of retrolisthesis of C5 on C6. Incidentally noted is a new endotracheal tube in satisfactory po sition. Procedure Note Ghulam Shaw MD - 03/23/2017Formatt ing of this note might be different from the original. EXAMINATION: XR CERVICAL SPINE 1 VIEW CLINICAL HISTORY: intraoperative level c onfirmation TECHNIQUE: Portable crosstable lateral cervical spi ne in OR COMPARISON: 10/30/2016 FINDINGS: No radiopaque level marker is present. T he spine is visible down to the level of C7. There is no interval change. Again n oted is multilevel degenerative disc disease with 1 to 2 mm of retrolisthesis of C5 on C6. Incidentally noted is a new endotracheal tube in satisfactory po sition. IMPRESSION No radiopaque level marker. No change in appearance of cervical spin e. Abel Delvalle MD IMG DX ORDERABLES documented in this encounter Visit Diagnoses Diagnosis Cervical disc disorder with radiculopath y of mid-cervical region Brachial neuritis or radiculitis nos Cervical radiculopathy Brachial neuritis or radiculitis nos Cervical disc disorder with radiculopath y of mid-cervical region Brachial neuritis or radiculitis nos documented in this encounter Admitting Diagnoses Diagnosis Cervical radiculopathy Brachial neuritis or radiculitis nos documented in this encounter Administered Medications Inactive Administered Medications - up to 3 most recent administrations Medication Order MAR Action Action Date Dose Rate Site acetaminophen (TYLENOL) tablet Given 03/24/2017 5:28 AM EDT 1,00 0 mg 1,000 mg 1,000 mg, Oral, EVERY 8 HOURS SCHEDULED, First dose on Thu03/23/17 at 1400, Until Discontinued, Maximum dose of acetaminophen is 4000 mg from all sources in 24 hours., Recovery (Recovery-Hospital Unit), Routine Given 03/23/2017 10:02 PM EDT 1,000 mg Given 03/23/2017 2:25 PM EDT 1,000 mg bacitracin injection Given 03/23/2017 9:32 AM 50,000 Units 19- Surgi david Site ONCE PRN, Starting on Thu EDT 03/23/17 at 0932, Until Thu03/24/17 at 1503, Intra-Operative (Intra-Procedure), Routine ceFAZolin (ANCEF) 1g in dextrose 5% Given 03/24/2017 3:37 AM EDT 1,000 mg 100 mL/hr 50mL 1,000 mg (1 g), Intravenous, EVERY 8 HOURS, 3 doses, First dose on Thu03/23/17 at 1045, Last dose on Thu03/24/17 at 0245, Administer over 30 Minutes, Adjust to 4 hours from intraoperative dose. * Beta-lactam based antibiotics (eg. Ampicillin, Cefazolin, Aztreonam) should be administered within 4 hours of the preceding intraoperative dose. * Vancomycin, Flouroquinolones, Clindamycin, Gentamicin, and Metronidazole should be administered within 8 hours of the preceding intraoperative dose., Recovery (Recovery-Hospital Unit), Indication for (Active or Suspected): Prophylaxis Given 03/23/2017 6:35 PM EDT 1,000 mg 100 mL/hr Given 03/23/2017 11:43 AM EDT 1,000 mg 100 mL/hr gabapentin (NEURONTIN) capsule 600 mg Given 03/24/2017 9:21 AM EDT 600 mg 600 mg, Oral, 3 TIMES DAILY, First dose on Thu03/23/17 at 1500, Until Discontinued, Recovery (Recovery-Hospital Unit), Routine Given 03/23/2017 10:01 PM EDT 600 mg Given 03/23/2017 2:25 PM EDT 600 mg gelatin adsorbable 100 Given 03/23/2017 9:32 AM EDT 1 each 19- Surgical Site (GELFOAM) sponge ONCE PRN, Starting on Thu03/23/17 at 0932, Until Thu03/24/17 at 1503, Intra-Operative (Intra-Procedure), Routine HYDROmorphone (DILAUDID) syringe 0.2-0.4 mg Given 03/23/2017 10:55 AM EDT 0.4 mg 0.2-0.4 mg, Intravenous, EVERY 5 MIN PRN, Pain, Starting on Thu03/23/17 at 1018, Until Thu03/23/17 at 1216, For moderate pain (4-6) give: 0.2 mg every 5 minute prn For severe pain (7-10) give: 0.4 mg every 5 minutes prn Maximum dose: 4 mg per hour Hold for respiratory rate less than 10 per minute., PACU Recovery Given 03/23/2017 10:37 AM EDT 0.4 mg Given 03/23/2017 10:27 AM EDT 0.4 mg lactated Ringers infusion 1,000 New Bag 03/23/2017 7:33 AM EDT 1,000 mLs 100 mL/hr mL 1,000 mL, at 100 mL/hr, Intravenous, CONTINUOUS, Starting on Thu03/23/17 at 0715, Until Thu03/23/17 at 1216, Day of Surgery (Day of Procedure) New Bag 03/23/2017 7:32 AM EDT lidocaine (XYLOCAINE) 10 mg/mL (1 %) injection Given 0 03/23/2017 7:33 AM EDT 3 mg 3 mg 3 mg (0.3 mL), Subcutaneous, ONCE PRN, 1 dose, Starting on Thu03/23/17 at 0654, Until Thu03/23/17 at 0733, for discomfort with PIV insertion, Day of Surgery (Day of Procedure), Routine multivitamin Sfdr-Ot-XQ-Min (THERAPEUTIC-M) Given 02/27 9:22 AM EDT 1 tablet 27-0.4 mg tablet 1 tablet 1 tablet, Oral, DAILY, First dose on Thu03/23/17 at 1315, Until Discontinued, Recovery (Recovery-Hospital Unit) Given 03/23/2017 2:25 PM EDT 1 tablet oxyCODONE (ROXICODONE) immediate release Given 03/23/2017 10:57 PM EDT 10 mg tablet 10 mg 10 mg, Oral, EVERY 4 HOURS PRN, Starting on Thu03/23/17 at 1028, Until Thu03/24/17 at 1503, Pain, moderate pain (4-6), For moderate pain (4-6). Do not exceed 15 mg in 4 hours. If pain not relieved, call provider., Recovery (Recovery-Hospital Unit), Routine oxyCODONE (ROXICODONE) immediate release tablet 15 mg 15 mg, Oral, EVERY 4 HOURS PRN, Starting on Thu03/23/17 at 1028, Until Thu03/24/17 at 1503, Pain, severe pain (7-10), For s evere pain (7-10). Do not exceed 15 mg in 4 hours. If pain not relieved, call provider., Recovery (Recovery-Hospital Unit), Routine oxyCODONE (ROXICODONE) immediate release Given 03/24/2017 10:00 AM EDT 5 mg tablet 5 mg 5 mg, Oral, EVERY 4 HOURS PRN, Starting on Thu03/23/17 at 1028, Until Thu03/24/17 at 1503, Pain, mild pain (1-3), For mild pain (1-3). Do not exceed 15 mg in 4 hours. If pain not relieved, call provider, Recovery (Recovery-Hospital Unit), Routine Given 03/24/2017 5:28 AM EDT 5 mg Given 03/23/2017 6:34 PM EDT 5 mg polyethylene glycol (MIRALAX) packet 17 g Given 03/23/2017 8:44 PM EDT 17 g 17 g, Oral, 2 TIMES DAILY, First dose on Thu03/23/17 at 1315, Until Discontinued, Recovery (Recovery-Hospital Unit), Routine senna-docusate (PERICOLACE) 8.6-50 mg per Given 2016 8:44 PM EDT 2 tablets tablet 2 tablet 2 tablet, Oral, 2 TIMES DAILY, First dose on Thu03/23/17 at 1315, Until Discontinued, Recovery (Recovery-Hospital Unit), Routine sodium chloride 0.9 % flush 5 mL Given 03/24/2017 9:26 AM EDT 5 mLs 5 mL, Intravenous, 2 TIMES DAILY, First dose on Thu03/23/17 at 1315, Until Discontinued, Recovery (Recovery-Hospital Unit), Routine Given 03/23/2017 8:48 PM EDT 5 mLs Given 03/23/2017 2:28 PM EDT 5 mLs sodium chloride 0.9% infusion New Bag 03/23/2017 10:46 AM EDT 1,000 mLs 100 mL/hr 1,000 mL, at 100 mL/hr, Intravenous, CONTINUOUS, Starting on Thu03/23/17 at 1045, Until Thu03/24/17 at 1503, Recovery (Recovery-Hospital Unit) thrombin (Bovine) Given 03/23/2017 9:33 AM 20,000 Units 19- Surgical Site (THROMBINAR) kit EDT ONCE PRN, Starting on Thu03/23/17 at 0933, Until Thu03/24/17 at 1503, Intra-Operative (Intra-Procedure) documented in this encounter Active and Recently Administered Medications Times are shown in EDT. Scheduled Medication Order 03/22/2017 03/23/2017 03/24/2017 acetaminophen (TYLENOL) tablet 1,000 mg 1425 (Given - Provider: Nilda Lindquist RN)2202 (Given - Provider: Paxton Cancino RN) 0528 (Given - Provider: Paxton Cancino RN) 1,000 mg, Oral, EVERY 8 HOURS SCHEDULED, First dose on Thu03/23/17 at 1400, Until Discontinued, Maximum dose of acetaminophen is 4000 mg from all sources in 24 hours., Recovery (Recovery-Hospital Unit), Routine ceFAZolin (ANCEF) 1g in dextrose 5% 50mL (COMPLETED) 1143 (Given - Provider: Naya Jeronimo RN - Comment: administered in OR at 0730)1835 (Given - Provider: Nilda Lindquist RN) 0337 (Given - Provider: Paxton Cancino RN) 1,000 mg (1 g), Intravenous, EVERY 8 FLAKO RS, 3 doses, First dose on Thu03/23/17 at 1045, Last dose on Thu03/24/17 at 0245, Administer over 30 Minutes, Adjust to 4 hours from intraoperative dose. * Beta-l actam based antibiotics (eg. Ampicillin, Cefazolin, Aztreonam) should be administered within 4 hours of the preceding intraoperative dose. * Vancomycin, Flouroquinolones, Clindamycin, Gentamicin, and Me tronidazole should be administered withi n 8 hours of the preceding intraoperative dose., Recovery (Recovery-Hospital Unit), Indication for (Active or Suspected): Prophylaxis ceFAZolin (ANCEF) 2g in dextrose 5% 100 mL (COMPLETED) 07 (Given - Provider: Christ Warren MD) 2 g, Intravenous, EVERY 3 HOURS, 1 dose, First dose on Thu03/23/17 at 0715, Administer over 30 Minutes, Redose after 3 hours., Intra-Operative (Intra- Procedure), Indication for (Active or Suspected): Prophylaxis gabapentin (NEURONTIN) capsule 600 mg 14 (Given - Provider: Nilda Lindquist RN)220 (Given - Provider: Paxton Cancino RN) 0921 (Given - Provider: Nilda Lindquist RN) 600 mg, Oral, 3 TIMES DAILY, First dose on Thu03/23/17 at 1500, Until Discontinued, Recovery (Recovery-Hospital Unit), Routine multivitamin Inwg-Gp-VX-Min (THERAPEUTIC-M) 27-0.4 mg tablet 1 tablet 1425 (Given - Provider: Nilda Lindquist RN) 0922 (Given - Provider: Nilda Lindquist RN) 1 tablet, Oral, DAILY, First dose on Thu03/23/17 at 1315, Until Discontinued, Recovery (Recovery-Hospital Unit), Routine polyethylene glycol (MIRALAX) packet 17 g 1315 (Not Given - Provider: Nilda Lidnquist RN - Reason: Patient/family refused)204 (Given - Provider: Paxton Cancino RN) 0900 (Not Given - Provider: Nilda Lidnquist RN - Reason: Patient/family refused) 17 g, Oral, 2 TIMES DAILY, First dose on Thu03/23/17 at 1315, Until Discontinued, Recovery (Recovery-Hospital Unit), Routine senna-docusate (PERICOLACE) 8.6-50 mg per tablet 2 tablet 1315 (Not Given - Provider: Nilda Lindquist RN - Reason: Patient/family refused)204 (Given - Provider: Paxton Cancino RN) 0900 (Not Given - Provider: Nilda Lindquist RN - Reason: Patient/family refused) 2 tablet, Oral, 2 TIMES DAILY, First dos e on Thu03/23/17 at 1315, Until Discontinued, Recovery (Recovery-Hospital Unit), Routine sodium chloride 0.9 % flush 5 mL 1428 (G iven - Provider: Nilda Lindquist RN)2047 (Given - Provider: Paxton Cancino RN) 0926 (Given - Provider: Nilda Lindquist RN) 5 mL, Intravenous, 2 TIMES DAILY, First dose on Thu03/23/17 at 1315, Until Discontinued, Recovery (Recovery-Hospital Unit), Routine Continuous Medication Order 03/22/2017 03/23/2017 03/24/2017 lactated Ringers infusion 1,000 mL (CANCELED) 0732 (New Bag - Provider: Christ Warren MD)0733 (New Bag - Provider: Daya Butler RN)0951 (Anesthesia Volume Adjustment - Provider: Christ Warren MD)1000 (Anesthesia Volume Adjustment - Provider: Christ Warren MD) 1,000 mL, at 100 mL/hr, Intravenous, CON TINUOUS, Starting Thu03/23/17 at 0715, Until Thu03/23/17 at 1216, Day of Surgery (Day of Procedure) sodium chloride 0.9% infusion 1046 (New Bag - Pr ovider: Naya Jeronimo RN) 1,000 mL, at 100 mL/hr, Intravenous, CON TINUOUS, Starting Thu03/23/17 at 1045, Until Thu03/24/17 at 1503, Recovery (Recovery-Hospital Unit) PRN Medication Order 03/22/2017 03/23/2017 03/24/2017 bacitracin injection (CANCELED) 0932 (Gi boni - Provider: Abel Delvalle MD - Comment: 50,000 units Baci mixed in 1 L NS administered via bulb syringe.) ONCE PRN, Starting Thu03/23/17 at 0932, Until Thu03/24/17 at 1503, Intra- Operative (Intra-Procedure), Routine gelatin adsorbable 100 (GELFOAM) sponge (CANCELED) 0932 (Given - Provider: Abel Delvalle MD - Comment: Gelfoam mixed with 20,000 units Thrombin.) ONCE PRN, Starting Thu03/23/17 at 0932, Until Thu03/24/17 at 1503, Intra- Operative (Intra-Procedure), Routine HYDROmorphone (DILAUDID) syringe 0.2-0.4 mg (CANCELED) 1027 (Given - Provider: Naya Jeronimo RN)1037 (Given - Provider: Naya Jeronimo RN)1055 (Given - Provider: Naya Jeronimo RN) 0.2-0.4 mg, Intravenous, EVERY 5 MIN PRN , Starting Thu03/23/17 at 1018, Until Thu03/23/17 at 1216, Pain, For moderate pain (4-6) give: 0.2 mg every 5 minute prn For severe pain (7-10) give: 0.4 mg every 5 minutes prn Maximum dose: 4 mg per ho ur Hold for respiratory rate less than 10 per minute., PACU Recovery, Routine lidocaine (XYLOCAINE) 10 mg/mL (1 %) injection 3 mg (COMPLET ED) 0733 (Given - Provider: Daya Butler RN) 3 mg (0.3 mL), Subcutaneous, ONCE PRN, 1 dose, Starting Thu03/23/17 at 0654, Until Thu03/23/17 at 0733, for discomfort with PIV insertion, Day of Surgery (Day of Procedure), Routine lidocaine (XYLOCAINE) 10 mg/mL (1 %) injection 3 mg 3 mg (0.3 mL), Subcutaneous, ONCE PRN, 1 dose, Starting Thu03/23/17 at 1245, Until Thu03/24/17 at 1503, for discomfort with PIV insertion, Recovery (Recovery-Hospital Unit), Routine ondansetron (ZOFRAN) injection 4 mg 4 mg, Intravenous, EVERY 8 HOURS PRN, St arting Thu03/23/17 at 1245, Until Thu03/24/17 at 1503, Nausea, If multiple antiemetics are ordered, use ondansetron first, prochlorperazine second, metaclopromide third., Recovery (Recovery- Hospital Unit) oxyCODONE (ROXICODONE) immediate release tablet 10 mg(Linked Group 1) 1425 (See Alternative - Provider: Nilda Lindquist RN)183 (See Alternative - Provider: Nilda Lindquist RN)225 (Given - Provider: Paxton Cancino RN) 0528 (See Alternative - Provider: Paxton Cancino RN)1000 (See Alternative - Provider: Nilda Lindquist RN) 10 mg, Oral, EVERY 4 HOURS PRN, Starting Thu03/23/17 at 1028, Until Thu03/24/17 at 1503, Pain, moderate pain (4-6), For moderate pain (4-6). Do not exceed 15 mg in 4 hours. If pain not relieved, call pr ovider., Recovery (Recovery-Hospital Unit), Routine oxyCODONE (ROXICODONE) immediate release tablet 15 mg(Linked Group 1) 1425 (See Alternative - Provider: Nilda Lindquist RN)1834 (See Alternative - Provider: Nilda Lindquist RN)225 (See Alternative - Provider: Paxton S Barak, RN) 0528 (See Alternative - Provider: Parker Cancino RN)1000 (See Alternative - Provider: Nilda Lindquist RN) 15 mg, Oral, EVERY 4 HOURS PRN, Starting Thu03/23/17 at 1028, Until Thu03/24/17 at 1503, Pain, severe pain (7-10), For severe pain (7-10). Do not exceed 15 mg in 4 hours. If pain not relieved, call prov ider., Recovery (Recovery-Hospital Unit), Routine oxyCODONE (ROXICODONE) immediate release tablet 5 mg(Linked Group 1) 1425 (Given - Provider: Nilda Lindquist RN)1834 (Given - Provider: Nilda Lindquist RN)2257 (See Alternative - Provider: Paxton Cancino RN) 0528 (Given - Provider: Paxton Cancino RN)1000 (Given - Provider: Nilda Lindquist RN) 5 mg, Oral, EVERY 4 HOURS PRN, Starting Thu03/23/17 at 1028, Until Thu03/24/17 at 1503, Pain, mild pain (1-3), For mild pain (1-3). Do not exceed 15 mg in 4 hours. If pain not relieved, call provider, Recovery (Recovery-Hospital Unit), Routine sodium chloride 0.9 % flush 5-20 mL 5-20 mL, Intravenous, EVERY 1 MIN PRN, S tarting Thu03/23/17 at 1245, Until Thu03/24/17 at 1503, flush, Flush pertains to all indwelling lines. Flush per protocol found in the job aid using the link prov ided on this medication record., Recovery (Recovery-Hospital Uni t), Routine thrombin (Bovine) (THROMBINAR) kit (CANCELED) 0933 (Given - Provider: Abel Delvalle MD - Comment: Gelfoam mixed with 20,000 units Thrombin.) ONCE PRN, Starting Thu03/23/17 at 0933, Intra-Operative (Intra-P rocedure) Linked Groups Order Group 1: oxyCODONE (ROXICODONE) immediate release tablet 5 mgJump to med 5 mg, Oral, EVERY 4 HOURS PRN, Starting Thu03/23/17 at 1028, Until Thu03/24/17 at 1503, Pain, mild pain (1-3)
For mild pain (1-3). Do not exceed 15 mg in 4 hours. If pain not relieved, call provider
Recovery (Recovery-Hospital Unit), Routine Or oxyCODONE (ROXICODONE) immediate release tablet 10 mgJump to med 10 mg, Oral, EVERY 4 HOURS PRN, Starting Thu03/23/17 at 1028, Until Thu03/24/17 at 1503, Pain, moderate pain (4-6)
For moderate pain (4-6). Do not exceed 15 mg in 4 hours. If pain not relieved, call provider.
[facility] Routine Or oxyCODONE (ROXICODONE) immediate release tablet 15 mgJump to med 15 mg, Oral, EVERY 4 HOURS PRN, Starting 03/23/17 at 1028, Until Thu03/24/17 at 1503, Pain, severe pain (7-10)
For severe pain (7-10). Do not exceed 15 mg in 4 hours. If pain not relieved, c all provider.
Recovery (Recovery-Hosp ital Unit), Routine documented in this encounter Care Teams Fixed Income Director Relationship Specialty Start Date End Date Susie López APRN PCP - General 05/21/15 06/30/19 documented as of this encounter
--- OUTSIDE RECORDS SUMMARY | 2022-07-25 10:51 | XMS_ITS | Encounter Summary ---
:1960 Author Organization [facility] [place] [address] Care Team Providers Name Role Phone ReneSusie fleming JE Primary Care Provider Reason for Visit Reason Comments Neck Pain Physical Therapy (Routine) - Specialty Diagnoses / Procedures Referred By Contact Refer red To Contact Physical Therapy Diagnoses Post-operative state Cervical disc disorder with radiculopathy of mid-cervical region Cervical radiculopathy Left arm pain Left arm weakness Abel Delvalle MD [facility] SPINE [id number] [place] [address] Phone: Referral ID Status Reason Start Date Expiration Date Visits V isits Requested Authorized [id number] Evaluate and 06/17/2017 06/17/2018 12 12 Treat Encounter Details Date Type Department Care Team Description 07/16/2017 Office Visit [facility] Ivon Mcneill, PT Neck pain [facility] [place] [address] Social History Tobacco Use Types Packs/Day [...] documented as of this encounter Progress Notes Ivon Cabrera, PT - 07/16/2017 3:00 PM EDT PHYSICAL THERAPY INITIAL EXAMINATION Date of First Exam/ First Treatment: 07/16/2017 Referring Provider: Abel Delvalle M.D. Diagnosis: 1. Neck pain 2. ACDF C7-T1 with ICBG by Abel Delvalle M.D. on 03/23/2017 3. 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 She was seen with the expectation to see if there is anything that can be done from anexercise perspective to ease the pain and improve her ability to function. History of Present Illness: Ms. Shaw reports she injured her neck and left upper extremity when slipping and falling in July 2016. She then underwent a ACDF C7T1 with ICBG by Abel Delvalle M.D. on03/23/2017. She notes her symptoms have improved considerably but they continue to still interfere with her ability to function. Complicating her problem on is worsening of her long-standing low back and left leg pain since August 2016. Ms. Shaw currently complains of neck pain with intermittent radiation to the left shoulder and down the lateral arm to the dorsum of the forearm to the wrist. Symptoms worsen when looking down, looking up, turning to the left, and sitting. Symptoms ease when keeping the neck in midline and resting the left hand on the right shoulder. Ms. Shaw also complains of low back and left buttock pain with intermittent radiation to the anterior and posterior aspect of the left thigh, calf and heel. Symptoms worsen when bending and sitting. Symptoms ease when sitting reclined or lying on the left side. Sleep is significantly disturbed due to her neck, left shoulder, and low back pain. Ms. Shaw's functional self care goal includes being able to look up without discomfort. Patient Active Problem List Diagnosis Code ??? [...] ??? Milium L72.0 ??? Cervical radiculopathy M54.12 Past Surgical History: Procedure Laterality Date ??? BACK SURGERY 2014 see neuro notes ??? LAMINOTOMY Left 2014 APD ??? PRO ANTERIOR INSTRUMENTATION 2-3 VERTEBRAL SEGMENTS Bilateral 03/23/2017 ANT. SPINAL INSTRUMENTATION, 2-3 VERTEBRA, SEGMENTED (WRVU 11.94) [facility] ??? PRO ARTHRODESIS, ANT INTERBODY,DECOMPRESSION; CERVICAL BELOW C2 Bilateral 03/23/2017 ARTHRODESIS, ANT INTERBODY,DECOMPRESSION; CERVICAL BELOW C2 (WRVU 25) performed by Abel Delvalle MD at [facility] MAIN OR ??? PRO AUTOGRAFT SPINE SURGERY MORSELIZED SEP INCISION Bilateral 03/23/2017 AUTOGRAFT FOR SPINE SURGERY ONLY; MORSELIZED (THROUGH SEPARATE SKIN OR FASCIAL INCISION) (WRVU 2.79) performed by Abel Delvalle MD at [facility] MAIN OR ??? 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 Physical Exam: Ms. Shaw is a pleasant 57 y.o. female who moves about in the exam room with slow andguarded movements and appears uncomfortable while seated. Sitting posture is poor and standing is good. Active range of motion of bilateral shoulders is full. Endrange left shoulder flexion and abduction worsens the shoulder pain. Active range of motion of the cervical spine is limited to 60?? flexion, 50?? extension, 70?? right rotation, 65?? left rotation, 40?? right sidebending, and 40?? left sidebending. End range extension, left rotation and left sidebending worsens the pain. Spurling maneuver to the right worsens the neck pain. Spurling maneuver to the left worsens the neck and her left shoulder pain. Active range of motion of the lumbar spine is limited to 40?? flexion and 5?? extension. End range flexion and extension worsens the pain. Repeated movement testing of the cervical spine did not reveal a directional preference. Her position of comfort is with the cervical spine in right sidebending and with the left hand resting on the right shoulder. Repeated movement testing of the lumbar spine did seem to suggest a directional preference toward right rotation in flexion in the left side lying position. Physical Therapy Assessment: Ms. Shaw is a woman who recently underwent a ACD F C7-T1 with residualpain but is interfering with her ability to function. The physical exam is significant for loss of cervical and lumbar range of motion, with no directional preference of the cervical spine and a directional preference toward right rotation in flexion of the lumbar spine. The history and exam is consistent with residual neck and left upper extremity pain and low back and left lower extremity pain of mechanical origin. I believe that these deficits can improve with physical therapy treatments directedto the neck and low back consisting of instruction in mechanical self-care and self mobilization exercises. Ms. Shaw has a good rehabilitation potential and I anticipate to meet with her for 6-8 additional visits over the next 6-8 weeks. Treatment Plan: The natural history of healing following surgery and rational for exercise based treatment was reviewed. Ms. Shaw was given a home exercise program consisting of right sidebending withthe left hand resting on the right shoulder as needed throughout the day to relieve the left upper extremity pain. She was also prescribed right rotation in flexion in the left side-lying position 6 times per day. Along with the prescribed exercises, we discussed the principles of symptom self monitoring. She will call with any questions, concerns, or if the pain worsens. Ms. Shaw will return to [facility] for a follow up appointment in one weeks time with the hope that she is ready to progress her home exercise program. Physical Therapy Goals in 4 weeks: 1. Independent with home exercise program 2. Able to turn to the left without discomfort 3. Able to able to look up without discomfort The plan has been discussed with Fely Shaw and she has agreed with the planned treatment. 50 minutes were spent interviewing, assessing, and instructing Fely Shaw in a home exercise program. Clinical Presentation: Stable Evolving Unstable x Notes: The patient's clinical presentation is Evolving due to neck and low back pain which is interfering with her ability to function. Clinical decision making of moderate complexity using standardized patient assessment instrument andmeasurable assessment of functional outcome. documented in this encounter Plan of Treatment Upcoming Encounters Date Type Specialty Care Team Description 08/07/2022 [facility] Nahid Carl PsyD (TeleHealth) [facility] [address], [place] [address] (Wo rk) Scheduled Referrals Name Type Priority Associated Diagnoses Order S chedule Referral to Outpatient Referral Routine Post-operati ve state Ordered: Physical Therapy Cervical disc disorder 0 06/17/2017 with radiculopathy of mid-cervical reg ion Cervical radicul opathy Left arm pain Left arm weakness documented as of this encounter Visit Diagnoses Diagnosis Neck pain Cervicalgia documented in this encounter Care Teams Social Services Director Relationship Specialty Start Date End Date Susie López APRN PCP - General 05/21/15 06/30/19 documented as of this encounter
--- OUTSIDE RECORDS SUMMARY | 2022-07-25 10:51 | XMS_ITS | Encounter Summary ---
:1960 Author Organization [facility] [address] Care Team Providers Name Role Phone Susie López FIBERGLASS BOAT BUILDER Primary Care Provider Reason for Visit Reason Comments Other clear spots on right cheek. Not itchy or hot to touch. 1 appeared 6 months ago, then other appeared a w [place] ago. Encounter Details Date Type Department Care Team Description 02/19/2017 Office Visit [facility] Nahid Charles MD [facility] [place] [address] [place] [address] [phone] Social History Tobacco Use Types Packs/Day Years [...] Sign Reading Time Taken Comments Blood Pressure 143/72 02/19/2017 10:38 AM EDT Pulse 76 02/19/2017 10:38 AM EDT Temperature - - Respiratory Rate - - Oxygen Saturation 100% 02/19/2017 10:38 AM EDT Inhaled Oxygen Concentration - - Weight - - Height - - Body Mass Index - - documented in this encounter Progress Notes Jeremie Charles MD - 02/19/2017 10:30 AM EDT Subjective: Patient ID: Fely Shaw is a 56 y.o. female. Chief Complaint Patient presents with ??? Other clear spots on right cheek. Not itchy or hot to touch. 1 appeared 6 months ago, then other appeareda week ago. HPI Fely presents for a problem visit. She noted a raised white lesion on her cheek about 6 mos ago. Ithas not changed in size and had no drainage or itch. A week ago she noted development of an adjacentsimilar but smaller lesion with similar characteristics Review of Systems Skin: Positive for rash (skin lesions ). Objective: BP 143/72 Pulse 76 SpO2 100% Patient reported measures: Pain:3 Physical Health:Very Good Fall: PHQ-9 QUESTIONNAIRE SCORE ONLY (AMB) 02/19/2017 PHQ - 9 Score (Clinic) 2 (Minimal Depression) Physical Exam Constitutional: She appears well-developed and well-nourished. She is cooperative. No distress. Neurological: She is alert. Skin: 2 isolated 2 -3 mm smooth pearly white papules without umbilication on R Cheek, medial lesion slightly larger She has faint telangectasia over malar area but no pustules Assessment and Plan: 1. Milium White smooth domed facial papules without umbilication and without change in size. DDx includes nanda, early acne rosacea ( has mild telangectasia) , molluscum, sebaceous hyperplasia. .Favor milia. I reassured about benign nature of milia and no treatment needed. . Appearance is not suspicious for BCC but if increases in size would get derm opinion . She voices understanding Return if symptoms worsen or fail to improve. documented in this encounter Plan of Treatment Upcoming Encounters Date Type Specialty Care Team Description 08/07/2022 [facility] Nahid Carl PsyD (Tele[employer] Search) [facility] [place] [address] (Wo rk) documented as of this encounter Visit Diagnoses Diagnosis Milium Sebaceous cyst documented in this encounter Care Teams Tariff Clerk Relationship Specialty Start Date End Date Susie López APRN PCP - General 05/21/15 06/30/19 documented as of this encounter
--- OUTSIDE RECORDS SUMMARY | 2022-07-25 10:51 | XMS_ITS | Encounter Summary ---
:1960 Author Organization [facility] [place] [place] [address] Care Team Providers Name Role Phone Susie López APRN Primary Care Provider Reason for Referral Physical Therapy (Routine) - Specialty Diagnoses / Procedures Referred By Contact Refer red To Contact Physical Therapy Diagnoses Post-operative state Cervical disc disorder with radiculopathy of mid-cervical region Cervical radiculopathy Left arm pain Left arm weakness Abel Delvalle MD [facility] Spine Pt [facility] [address] [address] Phone: Referral ID Status Reason Start Date Expiration Date Visits V isits Requested Authorized [id number] Evaluate and 06/17/2017 06/17/2018 12 12 Treat Reason for Visit Reason Comments Neck Pain Encounter Details Date Type Department Care Team Description 06/17/2017 Office Visit Spine Center at [facility], Post-op erative state; Amanda YOUNG Cervical disc disorder with radiculopath y of mid-cervical region; [facility] radiculopathy; [facility] Left arm pain; [place], [place] SPINE CENTER Left arm weakness [id number] [place], [place] [id number] Social History Tobacco Use Types Packs/Day Years [...] - Inhaled Oxygen Concentration - - Weight 72.6 kg (160 lb) 06/17/2017 8:18 AM EDT Height 172.7 cm (5' 8) 06/17/2017 8:18 AM EDT Body Mass Index 24.33 06/17/2017 8:18 AM EDT documented in this encounter Progress Notes Abel Delvalle MD - 06/17/2017 8:00 AM EDT Susie López APRN [facility] OCCUPATIONAL MEDICINE [place], [place] [address] Dear Colleague, I had the pleasure of seeing this patient at the [facility] [place] for surgical evaluation. Procedure: ACDF C7-T1 with ICBG.03/23/2017 without complication. ?? DIAGNOSES: 1. ??Left interosseous weakness in nondominant arm. 2. ??C7-T1 ??bilateral compression of the C8 nerve roots. :L>R 3. ??Status post left upper extremity EMG/nerve conduction studies without clear etiology, possible brachial plexus injury. 4. ??Left shoulder derangement. ? SUMMARY OF PLAN: Doing better. Good initial strength at least 4/5 if not better but subjectively shefatigues. Left shoulder pain with known biceps rupture. Plan is continue PT but with different modalitis. WRAP in 4-6 weeks. Forms for work and ADA were filled out by me and the staff. Sincerely, Abel Delvalle MD MS Customer Associate - Orthopedic Spine Surgery / Spine Center Locomotive Observer - Department of Orthopedic Surgery / Academics and Research Freight Inspector - [facility] 06/17/2017 Spine Center Response Trends Patient-reported scores: myD-H Spine Questionnaire responses 11/14/2016 11/18/2016 12/08/2016 03/12/2017 06/16/2017 VR36 - Physical Function (Range: 0-100) 32.8 32.8 39.3 - - VR36 - Bodily Pain (Range: 0-100) 23.1 23.1 37.5 - - VR36 - PCS (Range: 0-100) 38.7 38.7 43.9 - - VR36 - MCS (Range: 0-100) 39.6 39.6 36.6 - - Oswestry Disability Index (Range: 0-100) 48 (Severe disability) 48 (Severe disability) - - - Neck Disability Index (Range: 0-100) 38 (Moderate disability) 38 (Moderate disability) 30 (Moderate disability) - 22 (Mild disability) PROMIS-10 Physical Health Score - - 47.7 44.9 57.7 PROMIS-10 Mental Health Score - - 56 59 62.5 documented in this encounter Plan of Treatment Upcoming Encounters Date Type Specialty Care Team Description 08/07/2022 TH Visit [facility] Nahid Carl PsyD (TeleHealth) [facility] [address] [place] [address] (Wo rk) Scheduled Referrals Name Type Priority Associated Diagnoses Order S chedule Referral to Outpatient Referral Routine Post-operati ve state Ordered: Physical Therapy Cervical disc disorder 0 06/17/2017 with radiculopathy of mid-cervical reg ion Cervical radicul opathy Left arm pain Left arm weakness documented as of this encounter Visit Diagnoses Diagnosis Post-operative state Other postprocedural status Cervical disc disorder with radiculopath y of mid-cervical region Brachial neuritis or radiculitis nos Cervical radiculopathy Brachial neuritis or radiculitis nos Left arm pain Pain in limb Left arm weakness Other musculoskeletal symptoms referable to limbs documented in this encounter Care Teams Configuration Technician Relationship Specialty Start Date End Date Susie López APRN PCP - General 05/21/15 06/30/19 documented as of this encounter
--- OUTSIDE RECORDS SUMMARY | 2022-07-25 10:51 | XMS_ITS | Encounter Summary ---
:1960 Author Organization [facility] [place] [address] Care Team Providers Name Role Phone Rene Susie JE Primary Care Provider Reason for Visit Reason Onset Date Comments Pre Procedure Call 03/11/2017 Encounter Details Date Type Department Care Team Description 03/11/2017 Telephone [facility] non Nilda Guerrero, [place] [address] Social History Tobacco Use Types Packs/Day [...] this encounter Miscellaneous Notes Telephone Encounter - Nilda Guerrero [facility] - 03/11/2017 9:00 AM EDT Met with pt today following the surgical evaluation, advised pt of need to hold anticoagulants, NSAIDs, ASA products, and FishOil for ~10 days preoperatively. Reviewed medication list. Patient is not noted to be on any anticoagulants Patient agreed to hold Meloxicam as instructed. Collar Info: N/a per Dr. Delvalle Reviewed expectations re collar provision and use postoperatively. Reviewed importance of skin assessment and pad changes. Acute Opioid Prescribing: Opioid PDMP 03/11/2017 [place] PDMP Query Date 03/11/2017 Opioid Risk Assessment 03/11/2017 ORT Risk Assessment Low (0-3) Acute Opioid Specific Questions 03/11/2017 Date Acute Consent signed 03/11/2017 Considered the risk of opioid misuse, abuse, diversion? Yes Query run no concerns noted. Reviewed salient points within Acute Opioid Therapy Informed Consent with pt. Pt denies any questions or concerns. Offered pt a copy of consent for home reference. Signed Consent form passed to OR materials scheduler for scanning. Reviewed with pt the non opioid pain mgmt strategies that should be put in place both pre and postoperatively to minimize opioid use; strategies include: activity modification, regular Acetaminophen use, ice application for local analgesia, regular rest and relaxation. Explained that the non-opioid pain mgmt strategies noted above are the first line to assist with their postop pain; that the opioid pain medication that will be ordered is to be used to supplement the non-opioid methods. Advised pt that she is to take the least amt of opioid possible and the intent isto reduce use as the postoperative pain subsides. Explained that she should never exceed the prescribed amt without obtaining authorization from someone on the surgical care team. Explained that the goal is not to be pain free but rather have the postoperative pain manageable to allow for the the expected restricted activities. Copy of Spine Center Pre/Post-Operative Reference sheet provided to pt; reviewed the content, to include of prescription refill practices/timing with pt Reviewed postoperative expectations with pt, to include in general terms expectations r/t activity, restrictions, driving, work, disability paperwork, home support needs, FU appts. Pt verbalized understanding of the information reviewed.. Pt has Spine Center Nursing contact information; encouraged to call pre or postoperatively with any questions or concerns. documented in this encounter Plan of Treatment Upcoming Encounters Date Type Specialty Care Team Description 08/07/2022 TH Visit [facility] Nahid Carl PsyD (TeleHealth) [facility] [address] [place], [place] [address] (Wo rk) documented as of this encounter Visit Diagnoses Not on filedocumented in this encounter Care Teams Drawstring Knotter Relationship Specialty Start Date End Date Susie López APRN PCP - General 05/21/15 06/30/19 documented as of this encounter
--- OUTSIDE RECORDS SUMMARY | 2022-07-25 10:51 | XMS_ITS | Encounter Summary ---
:1960 Author Organization [facility] [place] [address] Care Team Providers Name Role Phone ReneSusie APRN Primary Care Provider Reason for Visit Reason Onset Date Comments Other 05/28/2017 Encounter Details Date Type Department Care Team Description 05/28/2017 Telephone [facility] at [facility] Jennifer [place] [address] Social History Tobacco Use Types Packs/Day [...] Telephone Encounter - Jennifer Hinkle MSW - 05/28/2017 10:51 AM EDT OFFICE OF CARE MANAGEMENT CCM Follow up call to [facility] [phone] in response to fax receipt of 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 Chart reviewed and discussed with Ayesha notes that they do require this FMLA paperwork to be completed as well as ADA form to support any past and ongoing work restrictions or reduced hrs from 12/15/16 through whenever they continue. She will fax an extra copy. Msg left for Ms. Shaw requesting return call. Upon return call will clarify current duty hours and restrictions and if she still requests FMLA. Depending on needs and for which diagnosis will coordinate WRAP or documentation through Dr. Delvalle. PLAN: 1) pending return call coordinate completion of FMLA certification paperwork and ADA documentation as needed. Paperwork returned to nursing office for hold. documented in this encounter Plan of Treatment Upcoming Encounters Date Type Specialty Care Team Description 08/07/2022 TH Visit [facility] Sp[facility] Nahid Carl PsyD (TeleHealth) [facility] [place] [address] (Wo rk) documented as of this encounter Visit Diagnoses Not on filedocumented in this encounter Care Teams Lead Ios Developer Relationship Specialty Start Date End Date Susie López APRN PCP - General 05/21/15 06/30/19 documented as of this encounter
--- OUTSIDE RECORDS SUMMARY | 2022-07-25 10:51 | XMS_ITS | Encounter Summary ---
:1960 Author Organization [facility] [place] [address] Care Team Providers Name Role Phone Susie López JE Primary Care Provider Reason for Visit Reason Comments Neck And Back Pain Encounter Details Date Type Department Care Team Description 07/24/2017 Office Visit [facility] non Ivon Cabrera, [place] [address] Social History Tobacco Use Types Packs/Day [...] encounter Progress Notes Ivon Cabrera, PT - 07/24/2017 8:00 AM EDT Spine Center Physical Therapy Note Referring Provider: Abel Delvalle M.D. Diagnosis: 1. Neck pain 2. ACDF C7-T1 with ICBG by Abel Delvalle M.D. on 03/23/2017 3. 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 Shaw reports the home exercise program has been going well but there has been no improvement in her pain. Ms. Shaw currently complains of neck pain radiating to the left shoulder and down the lateral arm to the dorsum of the forearm. Symptoms worsen when looking down, looking up, turning to the left, and sitting. Symptoms ease when keeping the neck in midline and resting the left hand on the right shoulder. Ms. Shaw also complains of low back pain radiating to the left buttock andintermittently down the anterior and posterior aspect of the left thigh to the calf and heel. There is numbness in the anterior aspect of the left thigh and the left leg feels weak. Sleep continues to be significantly disturbed due to her neck, left shoulder, and low back pain. Objective: Ms. Shaw returns today for a scheduled follow up appointment. She moves about in the exam room with slow and guarded movements and appears uncomfortable while seated. Sitting posture is fair and standing is good. Active range of motion of the cervical spine is limited to 60?? flexion, 50??extension, 70?? right rotation, 65?? left rotation, 40?? right sidebending, and 40?? left sidebending. End range extension, left rotation, and left sidebending worsens the pain. Spurling maneuver to the left worsens the neck and left shoulder pain. Active range of motion of the lumbar spine is limitedto 40?? flexion and 5?? extension. End range flexion and extension worsens the pain. Repeated movement testing of the cervical spine once again did not seem to suggest a directional preference. Her position of comfort is with the cervical spine and right sidebending and with the left hand resting on the right shoulder. Repeated movement testing of the lumbar spine did not reveal a directional preference. The pain worsens at endrange but she was no better nor worse at the conclusion of these maneuvers. Treatment Received: Discussed the natural history of neck and low back pain and the rational for exercise based treatment. Patient Education/ Home Exercise Program: Reviewed and modified Ms. Shaw 's home exercise program. The home exercise program now includes cervical self snag into extension 6-8 times per day. She was also prescribed flexion in lying, trunk rotation in supine, sciatic nerve self mobilization, and lyingprone in extension with 2 pillows under the chest to unload the left shoulder 2-3 times per day. Assessment: Ms. Shaw symptoms and range of motion remains unchanged. Hopefully, the adjusted home exercise program will result in improvement of her pain and ability to function. Goals: 1. Independent with home exercise program 2. Able to turn to the left and look over the shoulder without discomfort 3. Able to look up without discomfort without discomfort Plan: Follow up in 1 week to reassess and progress the home exercise program. Ms. Shaw was encouraged to call with any questions or concerns regarding todays visit or the home exercise program. Length of visit: A total of 25 minutes was spent re-assessing, treating, and instructing Fely Shaw in a home exercise program. documented in this encounter Plan of Treatment Upcoming Encounters Date Type Specialty Care Team Description 08/07/2022 TH Visit [facility] Sp[facility] Nahid Carl PsyD (TeleHealth) [facility] [address] [place], [place] [address] (Wo rk) documented as of this encounter Visit Diagnoses Diagnosis Neck pain Cervicalgia documented in this encounter Care Teams Hoisting Engine Operator Relationship Specialty Start Date End Date Susie López APRN PCP - General 05/21/15 06/30/19 documented as of this encounter
--- OUTSIDE RECORDS SUMMARY | 2022-07-25 10:51 | XMS_ITS | Encounter Summary ---
:1960 Author Organization [facility] [place] [address] Care Team Providers Name Role Phone Susie López APRN Primary Care Provider Reason for Referral Diagnostic Test (Routine) - Closed Specialty Diagnoses / Procedures Referred By Contact Refer red To Contact Radiology Diagnoses Cervical disc disorder with radiculopathy of mid-cervical region Abel Delvalle MD [facility] Rad Mri Procedures MRI Cervical Spine wo Contrast (Generic) [facility] [place], [place] [id number] [place] [phone] Referral ID Status Reason Start Date Expiration Date Visits V isits Requested Authorized [id number] Closed Specialty 03/11/2017 03/11/2018 1 1 Service Requested Reason for Visit Diagnostic Test (Routine) - Closed Specialty Diagnoses / Procedures Referred By Contact Refer red To Contact Radiology Diagnoses Cervical disc disorder with radiculopathy of mid-cervical region Abel Delvalle MD [facility] Rad Mri Procedures MRI Cervical Spine wo Contrast (Generic) [facility] [place] [address] [place] [address] Referral ID Status Reason Start Date Expiration Date Visits V isits Requested Authorized [id number] Closed Specialty 03/11/2017 03/11/2018 1 1 Service Requested Encounter Details Date Type Department Care Team Description 03/14/2017 Hospital Encounter MRI at [facility] [place] Kole Delvallein Cervical disc [facility] MD [place] disorder with [facility] radiculopathy [place], [place] CENTER mid-cervical region [address] SPINE CENTER [phone] [place] [address] Social History Tobacco Use Types Packs/Day Years [...] Tablet daily. Bowel regimen while on narcotics. meloxicam (MOBIC) 7.5 mg Take 1 tablet by 90 tablet 3 02/1903/24/2017 Tablet mouth 2 times daily as needed. gabapentin (NEURONTIN) Take 2 capsules by 540 capsule 3 01/2702/11/2018 300 mg Capsule mouth 3 times daily. EPINEPHrine (EPIPEN) 0.3 Inject 0.3 mLs 2 each 1 017 03/15/2019 mg/0.3 mL Auto-Injector into the muscle once as needed. vitamin E 400 unit Take 400 Units by 0 09/02/2017 Capsule mouth 2 times daily. BLACK COHOSH ORAL Take 1 tablet by 0 0 03/24/2017 mouth daily. acetaminophen (TYLENOL) Take 1,000 mg by 0 03/24/2017 500 mg Tablet mouth every 6 hours as needed for Pain. documented as of this encounter Plan of Treatment Upcoming Encounters Date Type Specialty Care Team Description 08/07/2022 TH Visit [facility] Nahid Carl PsyD (TeleHealth) [facility] [address] [place], [place] [address] (Wo rk) documented as of this encounter Procedures Procedure Name Priority Date/Time Associated Diagnosis Comme nts MRI CERVICAL SPINE Routine 03/14/2017 1:38 PM Cervical disc di sorder Results for this WO CONTRAST EDT with radiculopathy of proced ure are in mid-cervical region the resu lts section. documented in this encounter Results MRI Cervical Spine wo Contrast (Generic) (03/14/2017 [...] progressed. Abel Delvalle MD IMG MRI ORDERABLES documented in this encounter Visit Diagnoses Diagnosis Cervical disc disorder with radiculopath y of mid-cervical region Brachial neuritis or radiculitis nos documented in this encounter Care Teams Heel Slicker Relationship Specialty Start Date End Date Susie López APRN PCP - General 05/21/15 06/30/19 documented as of this encounter
--- OUTSIDE RECORDS SUMMARY | 2022-07-25 10:51 | XMS_ITS | Encounter Summary ---
:1960 Author Organization [facility] [place] [address] Care Team Providers Name Role Phone Rene, Susie JE Primary Care Provider Reason for Referral Occupational Therapy (Routine) - Closed Specialty Diagnoses / Procedures Referred By Contact Refer red To Contact Occupational Therapy Diagnoses Cervical disc disorder with radiculopathy of mid-cervical region Left-sided muscle weakness Left arm pain Abel Delvalle MD [facility] [address] [place], [place] SPINE CENTER [address] [place] [address] Referral ID Status Reason Start Date Expiration Date Visits V isits Requested Authorized [id number] Closed Evaluate and 04/15/2017 10/12/2017 1 1 Treat hysical Therapy (Routine) - Closed Specialty Diagnoses / Procedures Referred By Contact Refer red To Contact Physical Therapy Diagnoses Cervical disc disorder with radiculopathy of mid-cervical region Left-sided muscle weakness Left arm pain Abel Delvalle MD [facility] [place] [address] Referral ID Status Reason Start Date Expiration Date Visits V isits Requested Authorized [id number] Closed Evaluate and 04/15/2017 10/12/2017 12 12 Treat Reason for Visit Reason Comments Follow Up Surgery Encounter Details Date Type Department Care Team Description 04/15/2017 Office Visit Sp[facility] Center at Abel [facility], [place] portillo disc disorder with radiculopathy of mid-cervical region; Amanda YOUNG Left-sided muscle weakness; [facility] Left arm pain [address] [address] [place] [facility] [facility] [address] [place] [address] [phone] Social History Tobacco Use Types Packs/Day Years [...] encounter Progress Notes Abel Delvalle MD - 04/15/2017 9:40 AM EDT Susie López APRN [facility] [place] [address] Susie López BINDERY OPERATOR [facility] OCCUPATIONAL MEDICINE / [facility] 03* Dear Colleagues, I had the pleasure of seeing this patient at the [facility] for surgical evaluation. ?? DIAGNOSES: 1. ??Left interosseous weakness in [...] been unable to wear lead during studies. ??Trouble with prolonged computer work. Had a injection in shoulder at [employer]. Helped. Doing PT for shoulder.?? +Spurling. No atrophy of hand. Hand function IO 4/5 left. +Impingement Left shoulder. (MRI Biceps tear, RC tear) ?? However, she has had increasing weakness in Left Hand trouble picking things up. IO 3-12/31 Left. +Spurlings. ?? Procedure: ACDF C7-T1 ICBG 03/23/2017. Plan: Doing well sig increase in hand strength. No arm pain. No neck pain. Some anterior shoulder pain. Incision CDI. 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 Occasionally Will increase if she does well. More then 50% of more than 35 minutes on work status, prognosis and reviewing films with her. Sincerely, Abel Delvalle MD MS Target Trimmer - Orthopedic Spine Surgery / Spine Center Real Estate Acquisition Analyst - Department of Orthopedic Surgery / Academics and Research Health Analytics Consultant - [facility] 04/15/2017 Spine Center Response Trends Patient-reported scores: myD-H Spine Questionnaire responses 10/27/2016 11/14/2016 11/18/2016 12/08/2016 03/12/2017 VR36 - Physical Function (Range: 0-100) - 32.8 32.8 39.3 - VR36 - Bodily Pain (Range: 0-100) - 23.1 23.1 37.5 - VR36 - PCS (Range: 0-100) - 38.7 38.7 43.9 - VR36 - MCS (Range: 0-100) - 39.6 39.6 36.6 - Oswestry Disability Index (Range: 0-100) - 48 (Severe disability) 48 (Severe disability) - - Neck Disability Index (Range: 0-100) - 38 (Moderate disability) 38 (Moderate disability) 30 (Moderate disability) - PROMIS-10 Physical Health Score 42.3 - - 47.7 44.9 PROMIS-10 Mental Health Score 67.6 - - 56 59 documented in this encounter Plan of Treatment Upcoming Encounters Date Type Specialty Care Team Description 08/07/2022 TH Visit [facility] Nahid Carl PsyD (TeleHealth) [facility] [place], [place] [address] (Wo rk) Scheduled Referrals Name Type Priority Associated Diagnoses Order S chedule Referral to Physical Outpatient Routine Cervical disc Ordere d: Therapy Referral disorder with 04/15/2017 radiculopathy of mid-cervical reg ion Left-sided muscle weakness Left arm pain Referral to Outpatient Routine Cervical disc Ordered: Occupational Therapy Referral disorder with 2016 radiculopathy of mid-cervical reg ion Left-sided muscle weakness Left arm pain documented as of this encounter Visit Diagnoses Diagnosis Cervical disc disorder with radiculopath y of mid-cervical region Brachial neuritis or radiculitis nos Left-sided muscle weakness Muscle weakness (generalized) Left arm pain Pain in limb documented in this encounter Care Teams Picking Tech Relationship Specialty Start Date End Date Susie López APRN PCP - General 05/21/15 06/30/19 documented as of this encounter
--- OUTSIDE RECORDS SUMMARY | 2022-07-25 10:51 | XMS_ITS | Encounter Summary ---
:1960 Author Organization [facility] [place] [address] Care Team Providers Name Role Phone Susie López APRN Primary Care Provider Encounter Details Date Type Department Care Team Description 05/27/2017 Office Visit Occupational Therapy Carlota Rahman Le ft-sided muscle weakness; at [facility] OT Cervical disc disorder with radiculopath y of mid-cervical region [address] [place] [address] CENTER [phone] PHYSICAL MEDICINE & [place] [address] Social History Tobacco Use Types Packs/Day Years [...] encounter Progress Notes Carlota Rahman OT - 05/27/2017 9:00 AM EDT Images from the original note were not included. 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 Patient previously worked [...] #1 18 seconds 18 seconds with 3 clinical manager home care slips/ dropped pegs 18 seconds with 1 clinical manager home care slip 18 seconds with 1 clinical manager home care slip 18 seconds with 1grip slip Mean [...] 3+/5 4/5 5/5 Pronation 5/5 3/5 4/5 /10 pain 3+/5 4/5 5/5 Wrist Extension 5/5 [...] minimi 5/5 3/5 3/5 3+/5 4/5 Strength: Publishing Agent Testing with Dynamometer setting #2 Pinch Testing with Pinch Gauge Right Left 12/25/16 Right 04/21/17 Left 04/21/17 Left 05/14/17 Publishing Agent setting 2 69.4/66.2/63.7 20.7/16.8/16.6 59.7/57.6/41.3 28.8/23.1/21.3 30.5/29.6/32.3 Publishing Agent Average 66.4 18 52.9 24.2 30.8 Publishing Agent norms for age and gender 61.7 57.3 61.7 57.3 57.3 [place] 08/08/11 Average: 11 4 Average: 3.3 10.5/06/04 Average: 8.8 6/6 Average: 6.3 01/31/6 Average: 5.7 3 Pt 13./ Average: 13.5 4//4 Average: 3.3 Average: 9 8// Average: 6.7 5//6 Average: 5.7 Tip 4 Averaged 4.6 0/1/0 Average: 0.3 5.5//4 Average: 4.5 11/28/ Average: 3 Average: 3.7 Women Hand Publishing Agent Strength in Pounds: Mean (SD) Age Right [...] 1366 mean and 1312 women, community based Cong[place] population, healthy adults, Tanmay hand dynamometer); (Edward Sharp et al, 2008; n = 224; mean age = 75.4 (6.8); good health with normal hand functions; Tanmay dynamometer) Treatment Today: UE strengthening: shoulder strengthening via step outs [...] pronation, forearm supination, lateral pinch, palmar pinch Palmar pinch, lateral pinch, and tip pinch strengthening with use of red, medium, resistive putty toremove 5 small coin-sized stones from putty Palmar pinch strengthening x5 repetitions with moderate resistive clothespin Publishing Agent strengthening with calibrated gripper set at 20#: 3 sets of 10 repetitions Reviewed home program for wrist/forearm strengthening with theraband, hand strengthening with theraputty/digiflex (lumbrical pulls, palmar pinch, tip pinch, lateral pinch, gross grasp, hook fist) CLINICAL DECISION MAKING: Fely demonstrates continued improvement in UE strength as evidenced by good tolerance to increased resistance today with reports of 0/10 pain during and after exercise completion. Fely Sahw has good potential for gains with therapy with identified needs for skilled therapy for treatment of deficits noted during evaluation today, to maximize functional performance duringdaily activities. Mails Supervisor Goals (to be met by discharge): Date [...] weeks to progress towards short term and mcc goals Therapeutic exercises to increase functional mobility [...] (TeleHealth) [facility] [address], [place] [address] (Wo rk) documented as of this encounter Visit Diagnoses Diagnosis Left-sided muscle weakness Muscle weakness (generalized) Cervical disc disorder with radiculopath y of mid-cervical region Brachial neuritis or radiculitis nos documented in this encounter Care Teams Dough Brake Machine Operator Relationship Specialty Start Date End Date Susie López APRN PCP - General 05/21/15 06/30/19 documented as of this encounter
--- OUTSIDE RECORDS SUMMARY | 2022-07-25 10:51 | XMS_ITS | Encounter Summary ---
:1960 Author Organization [facility] [place] [address] Care Team Providers Name Role Phone ReneSusie fleming JE Primary Care Provider Encounter Details Date Type Department Care Team Description 06/16/2017 [place] En[place] [facility] Delvalle Post-operative [address] [place], [facility] [address] CENTER [phone] [place] [address] Social History Tobacco Use Types Packs/Day Years [...] the tablet to achieve a smaller dose. gabapentin (NEURONTIN) Take 2 capsules by 540 [...] [facility] Nahid Carl PsyD (TeleHilosoft) [facility] [address], [place] [address] (Wo rk) documented as of this encounter Procedures Procedure Name Priority Date/Time Associated Diagnosis Comme nts XR CERVICAL SPINE 2 Routine 06/16/2017 9:28 AM Post-operative state Results for this OR 3 VIEWS EDT procedure are i n the results section. documented in this encounter Results XR Cervical Spine 2 Or 3 Views (06/16/2017 9:28 AM EDT) Anatomical Region Laterality Modality C-spine N/A Digital Radiography Specimen (Source) Anatomical Location Collection Method / Collectio n Time Received Time / Laterality Volume Impressions 06/16/2017 9:57 AM EDT Status post ACDF at C7-T1. No radiographic evidence of complication. No change in alignment. Narrative 06/16/2017 9:57 AM EDT EXAMINATION: XR CERVICAL SPINE 2 OR 3 VIEWS CLINICAL HISTORY: Upright AP Lat C spine Xray; ??s/p ??C7-T1 ACDF 03/23/17 TECHNIQUE: AP and lateral cervical spine COMPARISON: 04/15/2017, 03/23/2017, 10/30/19 FINDINGS: Patient is status post ACDF at C7-T1. T he alignment is anatomic. No radiographic evidence of complication. A gain noted is multilevel degenerative changes, facet arthropathy and 1 to 2 mm of retrolisthesis of C5 on C6. The vertebral body heights are maintained. P revertebral soft tissues are unremarkable. Procedure Note Vijaya Sifuentes MD - 7 EXAMINATION: XR CERVICAL SPINE 2 OR 3 EWS CLINICAL HISTORY: Upright AP Lat C spine Xray; s/p C7-T1 ACDF 03/23/17 TECHNIQUE: AP and lateral cervical spine COMPARISON: 04/15/2017, 03/23/2017, 10/30/19 FINDINGS: Patient is status post ACDF at C7-T1. T he alignment is anatomic. No radiographic evidence of complication. A gain noted is multilevel degenerative changes, facet arthropathy and 1 to 2 mm of retrolisthesis of C5 on C6. The vertebral body heights are maintained. P revertebral soft tissues are unremarkable. IMPRESSION Status post ACDF at C7-T1. No radiograp hic evidence of complication. No change in alignment. Abel Delvalle MD IMG DX ORDERABLES documented in this encounter Visit Diagnoses Diagnosis Post-operative state Other postprocedural status documented in this encounter Care Teams Financial Analyst Accountant Relationship Specialty Start Date End Date Susie López APRN PCP - General 05/21/15 06/30/19 documented as of this encounter
--- OUTSIDE RECORDS SUMMARY | 2022-07-25 10:51 | XMS_ITS | Encounter Summary ---
:1960 Author Organization [facility] [address] Care Team Providers Name Role Phone ReneSusie fleming JE Primary Care Provider Encounter Details Date Type Department Care Team Description 04/30/2017 Office Visit Occupational Therapy Carlota Rahman Le [facility] muscle at [facility] OT weakness [address] [place] [address] PHYSICAL MEDICINE & RE[place]IL[place] [address] Social History Tobacco Use Types Packs/Day Years [...] encounter Progress Notes Carlota Rahman, SOHA - 04/30/2017 8:30 AM EDT Images from the original note were not included. 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 [...] #1 18 seconds 18 seconds with 3 academic program specialist slips/ dropped pegs 18 seconds with 1 academic program specialist slip 18 seconds with 1 academic program specialist slip 18 seconds with 1grip slip Mean [...] Left 01/08/17 Left 01/13/17 Left 03/05/17 Left 7/25/17 Shoulder Extension/Flexion 58/155 40/98 6-7/10 pain with [...] digiti minimi 5/5 3/5 3/5 3+/5 Strength: Certified Medical Coder Testing with Dynamometer setting #2 Pinch Testing with Pinch Gauge Right Left 12/25/16 Left 02/12/17 Left 6/8/17 Right 04/21/17 Left 04/21/17 Certified Medical Coder setting 2 69.4/66.2/63.7 20.7/16.8/16.6 8/10.3/7.3 11.5/10.4/11.8 59.7/57.6/41.3 28.8/23.1/21.3 Certified Medical Coder Average 66.4 18 8.6 11.2 52.9 24.2 Certified Medical Coder norms for age and gender 61.7 57.3 57.3 57.3 61.7 57.3 [place] 08/08/11 Average: 11 3/3/4 Average: 3.3 3/2.5/3 Average: 2.8 4.5//5 Average: 4.8 10.5//7 Average: 8.8 Average: 6.3 3 Pt 13./ Average: 13.5 4//4 Average: 3.3 3/2/2 Average: 2.3 11/28/ Average: 3.7 Average: 9 05/04/ Average: 6.7 Tip Averaged 4.6 0/1/0 Average: 0.3 1//2 Average: 1.3 2/3/2 Average 2.3 5.5//4 Average: 4.5 3// Average: 3 Women Hand Certified Medical Coder Strength in Pounds: Mean (SD) Age Right [...] 1366 mean and 1312 women, community based [place]inamese population, healthy adults, Tanmay hand dynamometer); (Edward Sharp et al, 2008; n = 224; mean age = 75.4 (6.8); good health with normal hand functions; Tanmay dynamometer) Treatment Today: Functional UE strengthening completed with BTE using various attachments: wrist flexion, wrist extension, wrist radial/ulnar deviation, forearm pronation, forearm supination, lateral [place] pinch, palmar pinch, tip pinch Fine motor coordination with in hand manipulation component requiring palm to finger translation: small nuts and bolts with vision occluded x10 Certified Medical Coder strengthening with calibrated gripper set at 10#: 2 sets of 10 repetitions Hand strengthening with green, max resistive putty: lumbrical pulls Reviewed home program for wrist/forearm strengthening with theraband, hand strengthening with theraputty/digiflex (lumbrical pulls, palmar pinch, tip pinch, lateral pinch, gross grasp, hook fist) CLINICAL DECISION MAKING: Fely demonstrated good tolerance to forearm/wrist/hand strengthening today reporting 0/10 pain during and after exercise completion. Fely is able to demonstrate home exercises with written instructions provided. Fely Shaw has good potential for gains with therapy with identified needs for skilled therapy for treatment of deficits noted during evaluation today, to maximize functional performance during daily activities. Welfare Investigator Goals (to be met by discharge): Date [...] weeks to progress towards short term and residential goals Therapeutic exercises to increase functional mobility [...] and Spine [facility] Nahid Carl PsyD (TeleHealth) [facility] [address], [place] [address] (Wo rk) documented as of this encounter Visit Diagnoses Diagnosis Left-sided muscle weakness Muscle weakness (generalized) documented in this encounter Care Teams Ventilation Worker Relationship Specialty Start Date End Date Susie López APRN PCP - General 05/21/15 06/30/19 documented as of this encounter
--- OUTSIDE RECORDS SUMMARY | 2022-07-25 10:51 | XMS_ITS | Encounter Summary ---
:1960 Author Organization [facility] [place] [address] Care Team Providers Name Role Phone Rene, Susie JE Primary Care Provider Reason for Visit Reason Comments Shoulder Pain Joint Pain Encounter Details Date Type Department Care Team Description 06/11/2017 [facility] Visit [facility] disorder with radiculopathy of mid-cervical region; Amanda Galdamez OT Biceps rupture, proximal, le ft, [place] [address] Social History Tobacco Use Types Packs/Day [...] Sign Reading Time Taken Comments Blood Pressure 133/78 06/11/2017 1:06 PM EDT Pulse 93 06/11/2017 1:06 PM EDT Temperature - - Respiratory Rate - - Oxygen Saturation - - Inhaled Oxygen Concentration - - Weight - - Height - - Body Mass Index - - documented in this encounter Progress Notes [facility] OT - 06/11/2017 1:00 PM EDT Work Readiness Assessment Referring Provider: EMERITA MENDOZA MD Primary Care Provider: Susie López APRN Reason for Referral: Ms. Shaw was referred to the Spine Center for assistance in determining her current work ability prior to an anticipated return to full duty work and to help complete her disability/ADA paperwork. Brief Medical History: Ms. Shaw injured her neck and left shoulder after a slip and fall on the icewhile on her way into work on 08/23/16. She was initially diagnosed with a proximal biceps tendon rupture and rotator cuff tear, and about a month later developed neck pain with left-sided radicular symptoms. Treatment to date has included ACDF C7-T1 on 03/23/2017, occupational therapy, physical therapy, Tylenol. She also reports a history of low back and left leg pain, for which she underwent a leftsided laminotomy in 2013, and left knee pain, for which she underwent a partial medial meniscectomy in 2010. Pain: Ms. Shaw reports left shoulder pain. The pain is rated 0/10 at its least and 6-7/10 at its worst on a 0-10 numerical scale, over the past 3 days. Symptoms worsen with sliding and lifting patients and supplies, post processing images (sitting at computer station. Symptoms ease with Tylenol, resting, changing positions. Pain level prior to testin/10. 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 Shaw has been working in her current position in the company for 25 years. Work Status: Ms. Shaw is currently working with the following restrictions: 9 hours/day, 3 days/week (typically works 12 hour shifts), no lifting over 15 pounds Job Demands: This is a Medium physical demand level job requiring lifting up to 50 lbs. on an occasional basis by her description. A current job description and task analysis was not provided by the employer. Identified At Risk Job Demands: 1. Lifting, sliding patients on/off stretcher onto table 2. Post-processing of images at computer station 3. Placing IVs - bending 4. Working in an approximately 12 pound lead apron, which causes pressure on left shoulder AROM: Within normal limits, both upper and lower extremities, neck and trunk except lumbar spine, cervical spine, and left shoulder. Lumbar Spine Flexion (0-90??) 60?? Extension (0-30??) 10?? Cervical Spine Flexion (0-60??) 60?? Extension (0-50??) 55?? Rot. Right (0-80??) 45?? Rot. Left (0-80??) 45?? Lat. Flex Right (0-45??) 35?? Lat. Flex Left (0-45??) 30?? Shoulder Flexion Right (0-180??) 170?? Left (0-180??) 150?? Gait: Gait is normal. She is able to heel and toe walk, with loss of balance on heel walking. Ms. Shaw is able to perform a full range squat, with some back pain, and need to use upper extremities on knees for support. Strength: Grossly 5/5 bilateral upper and lower extremities except left shoulder. Able to only lift 15 pounds to shoulder level, and 10 pounds overhead on functional lifting test. Upper Body Tasks Complete and detailed upper extremity evaluation was completed by Carlota Rahman OT, on 06/05/17, so was not repeated today. See OT note in chart. Elementary Assistant Principal Strength (lbs): Right Left 65 lbs. 25 lbs. 65 lbs. 25 lbs. 65 lbs. 25 lbs. Comments: To attain the tolerances for seo professional strength, a dynamometer in the second position was used. Ms. Shaw is right-hand dominant. When compared to well-established normative data, Ms. Shaw's bilateral seo professional strength is within the normal range on the right and below the normal range on the left for females her age. Cardiovascular Endurance Ms. Shaw completed a multistage, submaximal treadmill protocol by walking for 8:00 minutes, achieving a speed of 3.1 mph on a 13% grade. This is equivalent to 9 METs with a heart rate of 164 bpm. Reported reason for stop point: left leg pain Non Material Handling Tasks Bend Limited by low back pain and lumbar stiffness to 60 degrees flexion Kneel Demonstrated 1 repetition during material handling. Able to assume a half kneeling position (on one knee). Limited by left knee pain. Reports she is able to sustain the half kneeling position forseveral minutes Squat Able to perform a full range squat using upper extremities for support on knees to rise. Reports she is NOT able to sustain a squatting position for several minutes Climb Ms. Shaw reports she is able to ascend and descend a flight of stairs without difficulty. Stand Ms. Shaw reports no limitations. Walk Ms. Shaw reports no limitations. Sit Ms. Shaw reports 20 minutes Reach Limited by decreased left shoulder active range of motion. Drive Ms. Shaw reports 45 minutes Do Fine Motor No observed or reported limitations Comments: To attain the above non material handling tolerances Ms. Shaw was observed during tasks requiring these postures and by self-report. Materials Handling Tasks 1-time Maximum Occasional Floor to Waist Lift 15 lbs. 10.5 lbs. 12 to Waist Lift 25 lbs. 17.5 lbs. Waist to Shoulder Lift 15 lbs. 10.5 lbs. Shoulder to Overhead Lift 10 lbs. 7 lbs. Carry, 25 feet 20 lbs. 14 lbs. Push (25 feet) 25 lbs. 17 lbs. Pull (25 feet) 25 lbs. 17 lbs. Comments: To attain the material handling tolerances Ms. Shaw carried, lifted, pushed and pulled a succession of weights. She demonstrated fair to good body mechanics. Approximate frequency of lifts or movements are defined by the [place] Department of Labor Employment and Training and Administration. 1-time maximum - maximum ability demonstrated in a testing situation Occasional - Up to 33% of the workday; up to 1 repetition per 30 minutes. Frequent - Performed 34 - 66% if the workday Physical Demand Levels: Physical Demand Level Sedentary Sedentary-Light Light Light- Medium Medium Medium- Heavy Heavy Very Heavy Max Lift Occasional 10 lbs. 15 lbs. 20 lbs. 35 lbs. 50 lbs. 75 lbs. 100 lbs. 100+ lbs. Max Lift Frequent Negligible 10 lbs. 10 lbs. 20 lbs. 25 lbs. 35 lbs. 50 lbs. 50+ lbs. Typical Energy Required 1.5 METS 2.0 METS 2.5 METS 3.0 METS 3.5 METS 4.5 METS 6.0 METS 7.5 METS (Definitions of Physical Demand Levels as defined by the [place] department of Employment and Training Administration) Assessment: The above findings were based on an assessment of cardiovascular endurance, physical function, statements made during the evaluation and observations made by the electronics hardware design engineer. This evaluation suggests Ms. Shaw is currently functioning at the Light physical demand level when considering her ca rdiovascular endurance and ability to lift. In summary, this means Ms. Shaw is NOT able to return to her previous life style which included work at the Medium physical demand level. During a 75 minute assessment, Ms. Shaw demonstrated the tolerances for the identified at-risk job functions. [place] limiting factors to performing time study technologist work are decreased strength and range of motion in the left upper extremity, decreased functional strength for lifting, carrying , pushing and pulling. 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 Ms. Shaw has physical limitations in AROM of the left shoulder, cervical and lumbar spine, cardiovascular endurance, functional strength, and overall physical capacities that interfere with her ability to perform basic functional tasks that affect the quality of life. I believe this can improve with a work conditioning program under the direction of a physical therapist. Recommendations: - Provide the following work site accommodations for Ms. 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 - Continue with current physical therapy as prescribed. Focus on shoulder strengthening and range ofmotion. - Consider referral for individualized physical therapy in the Spine Center to address left shoulderstrength/range of motion, if not improved by follow up visit in approximately 4 weeks. - Repeat Work Readiness Assessment in about 4 weeks. EMPLOYEE WORK CAPABILITY Employee can No Restrictions Frequently Occasionally Unable to Employee can lift/carry maximally/ocassionally 15 lbs. except shoulder level maximally 10 pounds and above shoulder level 7 pounds Employee can lift/carry frequently 7.5 lbs, except shoulder level 5 pounds and above shoulder level 3 pounds Bend x Kneel x Employee can work a maximum of Squat x 10 hours/ day, 3 days/ week for two weeks Climb X-stairs then increase to 12 hrs/day, 3 days per week, Stand x for two weeks, then re-assess Walk x Other: opportunities Sit x for frequent position Reach x changes and stretch Drive x breaks Do Fine Motor x Other: provide height adjustable stool/seat Wrist Elbow Shoulder Ankle for IV room No Repetitive Move Right Left x Continue Working [XX] With restrictions and accommodations as outlined above; progressive 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 Shaw's work abliity. The result of this testing must be integrated with clinical findings and other observations to derive a final assessment of work capacity. This is NOT a Functional Capacity Evaluation, but a screening of the individual's current work abilities to assist the referring provider in developing return towork recommendations. 75 minutes were spent interviewing and assessing Ms. Shaw. documented in this encounter Plan of Treatment Upcoming Encounters Date Type Specialty Care Team Description 08/07/2022 TH Visit [facility] Nahid Carl PsyD (TeleHealth) [facility] [address], [place] [address] (Wo rk) documented as of this encounter Visit Diagnoses Diagnosis Cervical disc disorder with radiculopath y of mid-cervical region Brachial neuritis or radiculitis nos Biceps rupture, proximal, left, sequela documented in this encounter Care Teams Gear Cutting Machine Operator Relationship Specialty Start Date End Date Susie López APRN PCP - General 05/21/15 06/30/19 documented as of this encounter
--- OUTSIDE RECORDS SUMMARY | 2022-07-25 10:51 | XMS_ITS | Encounter Summary ---
:1960 Author Organization [facility] [place] [address] Care Team Providers Name Role Phone Susie López APRN Primary Care Provider Encounter Details Date Type Department Care Team Description 04/27/2017 Telephone [facility] [place] [address] Social History Tobacco Use Types Packs/Day Years [...] this encounter Miscellaneous Notes Telephone Encounter - Daniela Solomon - 04/27/2017 4:59 PM EDT Disability paperwork rec'd from [facility]. This was passed along to spine center childcare provider, Gwen Hinkle. documented in this encounter Plan of Treatment Upcoming Encounters Date Type Specialty Care Team Description 08/07/2022 TH [facility] Nahid Carl PsyD (TeleHealth) [facility] [address], [place] [address] (Wo rk) documented as of this encounter Visit Diagnoses Not on filedocumented in this encounter Care Teams Radar Mechanic Relationship Specialty Start Date End Date Susie López APRN PCP - General 05/21/15 06/30/19 documented as of this encounter
--- OUTSIDE RECORDS SUMMARY | 2022-07-25 10:51 | XMS_ITS | Encounter Summary ---
:1960 Author Organization [facility] [place] [address] Care Team Providers Name Role Phone Rene, Susie JE Primary Care Provider Encounter Details Date Type Department Care Team Description 06/12/2017 Orders Only Sp[facility] at [facility] non Dominga Funk Post-operative [facility] [place] [address] Social History Tobacco Use Types Packs/Day [...] documented as of this encounter Progress Notes Dominga Funk RN - 06/12/2017 10:52 AM EDT Xray order placed as auhoized by Dr Delvalle to be performed at pending 3 mo surgical FU appt. [employer] advised and will arrange Xray and advise pt of arrival time. documented in this encounter Plan of Treatment Upcoming Encounters Date Type Specialty Care Team Description 08/07/2022 TH Visit [facility] Nahid Carl PsyD (TeleHealth) [facility] [place], [place] [address] (Wo rk) documented as of this encounter Results XR Cervical Spine 2 [...] Diagnoses Diagnosis Post-operative state Other postprocedural status Post-operative state Other postprocedural status documented in this encounter Care Teams Commissioner Of Relocation Services Relationship Specialty Start Date End Date Susie López APRN PCP - General 05/21/15 06/30/19 documented as of this encounter
--- OUTSIDE RECORDS SUMMARY | 2022-07-25 10:51 | XMS_ITS | Encounter Summary ---
:1960 Author Organization [facility] Address [facility] [place] [address] Care Team Providers Name Role Phone Susie López JE Primary Care Provider Encounter Details Date Type Department Care Team Description 03/13/2017 Laboratory Lab at [facility] Cervical disc disorder Appointment One [facility] with radi culopathy of [place] [id number] Social History Tobacco Use Types Packs/Day Years [...] and Spine Center Nahid Carl PsyD (TeleHealth) [facility] [address] [place] [address] (Wo rk) documented as of this encounter Procedures Procedure Name Priority Date/Time Associated Diagnosis Comme nts ABORH RECHECK STATUS Routine 03/13/2017 2:34 PM R esults for this EDT procedure are i n the results section. HEMOGRAM Routine 03/13/2017 2:34 PM Cervical disc Results for this EDT disorder with procedure are in radiculopathy of the results mid-cervical region section. DIFFERENTIAL, Routine 03/13/2017 2:34 PM Cervical disc Results for this AUTOMATED EDT disorder with procedure are in radiculopathy of the results mid-cervical region section. TYPE AND SCREEN, SDP Routine 03/13/2017 2:34 PM Cervical disc (FUTURE SURGERY, EDT disorder with [facility] SAME DAY radiculopathy of PROGRAM ONLY) mid-cervical region ABO/RH TYPING Routine 03/13/2017 2:34 PM Cervical disc Results for this EDT disorder with procedure are in radiculopathy of the results mid-cervical region section. PROTHROMBIN TIME Routine 03/13/2017 2:34 PM Cervical disc Resu lts for this EDT disorder with procedure are in radiculopathy of the results mid-cervical region section. CBC (WITH DIFF) Routine 03/13/2017 2:34 PM Cervical disc EDT disorder with radiculopathy of mid-cervical region ANTIBODY SCREEN Routine 03/13/2017 2:34 PM Cervical disc Resul ts for this EDT disorder with procedure are in radiculopathy of the results mid-cervical region section. BASIC METABOLIC Routine 03/13/2017 2:34 PM Cervical disc Resul ts for this PANEL (NON-FASTING) EDT disorder with procedu re are in radiculopathy of the results mid-cervical region section. documented in this encounter Results ABORH Recheck Status (03/13/2017 2:34 PM EDT) [facility] Method Time Signature ABORH Recheck Order Placed [facility] K Order [facility] ABORH Type Complete [facility] LABORATORY Specimen Anatomical Collection Method Collection Time Receive d Time (Source) Location / / Volume Laterality Blood specimen 03/13/2017 2:34 PM 017 2:36 (specimen) EDT PM EDT Resulting Agency Comment Spec In Lab Abel Delvalle MD BLOOD BANK ORDERABLES Performing Organization Address City/State/ZIP [place] [address] Antibody screen (03/13/2017 2:34 PM EDT) Patholo gist Method Time Signature Ab Screen Negative [facility] LABORATORY Expires at 03/26/2017 PEG ESTRADA [id number] on: [facility] Specimen Anatomical Collection Method Collection Time Receive d Time (Source) Location / / Volume Laterality Blood specimen 03/13/2017 2:34 PM 017 2:36 (specimen) EDT PM EDT Resulting Agency Comment Spec In Lab Abel Delvlale MD BLOOD BANK ORDERABLES Performing Organization Address City/[facility] Code Phon e Number [address] ABO/Rh Typing (03/13/2017 2:34 PM EDT) athologist Signature ABORh Type B Pos [facility] Specimen Anatomical Collection Method Collection Time Receive d Time (Source) Location / / Volume Laterality Blood specimen 03/13/2017 2:34 PM 017 2:36 (specimen) EDT PM EDT Resulting Agency Comment Spec In Lab Abel Delvalle MD BLOOD BANK ORDERABLES Performing Organization Address City/[facility] Phon e Number [address] Differential, Automated (03/13/2017 2:34 PM EDT) P athologist Signature Neutrophils % 54.1 % [facility] Neutr Abs (ANC) 3.56 1.70 - [facility] 6.10 [facility] x10(3)/[facility] LABORATORY Lymphocytes % 34.7 % [facility] Lymphocytes Abs 2.3 0.9 - 3.2 [facility] x10(3)/[facility] LABORATORY Monocytes % 7.8 % [facility] Monocyte Abs 0.5 0.3 - 0.9 [facility] x10(3)/[facility] LABORATORY Eosinophils % 2.0 % [facility] Eosinophils Abs 0.1 0.0 - 0.4 [facility] x10(3)/[facility] LABORATORY Basophils % 1.2 % [facility] Basophils Abs 0.1 0.0 - 0.1 [facility] x10(3)/[facility] LABORATORY Immature Gran % 0.20 % [facility] Comment: Immature granulocytes(IG's)percentage an d absolute count will include metamyelocytes, myelocytes, and promyelo cytes. Blood smears from CBCs yielding IG's will be scanned manually for concor dance. If this scan disagrees with the automated IG or if promyelocytes are not ed, a manual differential will be performed. Archana Gran Abs 0.01 0.00 - 0.04 x10(3)/[facility] Specimen Anatomical Collection Method Collection Time Receive d Time (Source) Location / / Volume Laterality Blood specimen 03/13/2017 2:34 PM 017 2:37 (specimen) EDT PM EDT Resulting Agency Comment Spec In Lab Abel Delvalle MD HEMATOLOGY ORDERABLES Performing Organization Address City/State/ZIP [place] [address] Hemogram (03/13/2017 2:34 PM EDT) P athologist Signature WBC 6.6 4.0 - 9.5 [facility] x10(3)/[facility] LABORATORY RBC 4.59 4.00 - [facility] 5.21 [facility] x10(6)/[facility] Hemoglobin 13.9 11.7 - [facility] 15.5 gm/dL [facility] Hematocrit 42.4 35.7 - [facility] 45.8 % [facility] MCV 92.4 82.6 - [facility] 94.4 [facility] LABORATORY MCH 30.3 27.1 - PEG NATALIE 32.0 pg [facility] MCHC 32.8 31.7 - [facility] 35.0 gm/dL [facility] Platelets 240 145 - 357 [facility] x10(3)/[facility] RDWSD 40.5 37.0 - PEG NATALIE 46.0 [facility] LABORATORY RDWCV 11.9 11.5 - [facility] NATALIE 14.1 % [facility] MPV 8.8 7.6 - 12.9 [facility] LABORATORY nRBC % Auto 0.0 % [facility] nRBC Abs Auto 0.000 0.000 - [facility] 0.000 [facility] x10(3)/[facility] LABORATORY Specimen Anatomical Collection Method Collection Time Receive d Time (Source) Location / / Volume Laterality Blood specimen 03/13/2017 2:34 PM 017 2:37 (specimen) EDT PM EDT Resulting Agency Comment Spec In Lab Abel Delvalle MD HEMATOLOGY ORDERABLES Performing Organization Address City/State/[place] [address] Prothrombin Time (03/13/2017 2:34 PM EDT) P athologist Signature PT 12.6 12.0 - 15.0 [facility] LABORATORY Comment: An INR <2.0 indicates adequate [...] linical circumstances. INR 0.9 0.9 - 1.1 [facility] LABOR[facility] Specimen Anatomical Collection Method Collection Time Receive d Time (Source) Location / / Volume Laterality Blood specimen 03/13/2017 2:34 PM 017 2:37 (specimen) EDT PM EDT Resulting Agency Comment Spec In Lab Abel Delvalle MD HEMATOLOGY ORDERABLES Performing Organization Address City/State/ZIP [place] [address] (ABNORMAL) Basic Metabolic Panel (non-fasting) (03/13/2017 2:34 PM EDT) P athologist Signature Glucose Lvl 99 65 - 199 [facility] mg/dL [facility] Comment: Diabetes: >=200 mg/dL plus symp toms BUN 16 8 - 18 mg/dL [facility] Creatinine 1.14 0.70 - 1.20 mg/dL [facility] Comment: Please note that the pediatric reference intervals supplied above were not validated at [facility]. Results from pediatri c patients should be interpreted in conjunction to the patient's age, height and muscle mass. Sodium 144 135 - 145 mmol/L [facility] Potassium 4.3 3.5 - 5.0 mmol/L [facility] Comment: Please note: ??Patients with WBC >100,00 0 may have falsely elevated Potassium levels. ??For accurate Potassium quantif ication in these patients send serum separator tube (gold top) for subsequent determinations. ??Contact the Clinical Chemistry Laboratory if there are any qu estions. Chloride 104 98 - 107 mmol/L [facility] CO2 25 22 - 31 mmol/L [facility] Anion Gap 15 5 - 15 mmol/L [facility] Calcium 9.6 8.5 - 10.5 mg/dL [facility] Estimated GFR 49 (L) >=60 [facility] Comment: This estimated GFR (eGFR) value [...] the following links into your internet browser. [email or web address] [email or web address] Specimen Anatomical Collection Method Collection Time Receive d Time (Source) Location / / Volume Laterality Blood specimen 03/13/2017 2:34 PM 017 2:37 (specimen) EDT PM EDT Resulting Agency Comment Spec In Lab Abel Delvalle MD CHEMISTRY ORDERABLES Performing Organization Address City/State/Z[place] [address] documented in this encounter Visit Diagnoses Diagnosis Cervical disc disorder with radiculopath y of mid-cervical region Brachial neuritis or radiculitis nos documented in this encounter Care Teams Data Communications Software Consultant Relationship Specialty Start Date End Date Susie López APRN PCP - General 05/21/15 06/30/19 documented as of this encounter
--- OUTSIDE RECORDS SUMMARY | 2022-07-25 10:51 | XMS_ITS | Encounter Summary ---
:1960 Author Organization [facility] [place] [address] Care Team Providers Name Role Phone Rene, Susie JE Primary Care Provider Encounter Details Date Type Department Care Team Description 02/24/2017 Telephone [facility] non Kylee Verduzco, [place] [address] Social History Tobacco Use Types Packs/Day Years [...] encounter Miscellaneous Notes Telephone Encounter - Kylee Verduzco, RN - 02/24/2017 9:23 AM EDT Received call from Ms. Shaw with questions/concerns regarding her current symptoms. 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 On Thursday morning about an hour and a half after waking up without incident she started experiencing neck pain, radiating into the scapula and down the left arm. She is also experiencing some aching and tingling into the 4th and 4th fingers. She denies any new weakness. She has a pending appointment on 03/11 and is questioning what she should do in the interim. Case was discussed with Dr. Delvalle. Call was placed back to the patient to make her aware Dr. Delvalle is recommending she continue to work with PT and cut back on her work schedule pending her next visit. Ms. Shaw was in agreement with this plan. See patient letters for details of workrestrictions. Copy of the letter was faxed to HR per pt request. documented in this encounter Plan of Treatment Upcoming Encounters Date Type Specialty Care Team Description 08/07/2022 TH Visit [facility] Nahid Carl PsyD (TeleHealth) [facility] [place] [address] (Wo rk) documented as of this encounter Visit Diagnoses Not on filedocumented in this encounter Care Teams Packing Machine Can Feeder Relationship Specialty Start Date End Date Susie López APRN PCP - General 05/21/15 06/30/19 documented as of this encounter
--- OUTSIDE RECORDS SUMMARY | 2022-07-25 10:51 | XMS_ITS | Encounter Summary ---
:1960 Author Organization [facility] [place] [address] Care Team Providers Name Role Phone Susie López APRN Primary Care Provider Encounter Details Date Type Department Care Team Description 02/26/2017 Office Visit Occupational Therapy Carlota Rahman Le ft-sided muscle weakness; at [facility] OT Cervical disc disorder with radiculopath y of mid-cervical region [address] [place] [address] CENTER [phone] PHYSICAL MEDICINE & [place] [address] Social History Tobacco Use Types Packs/Day Years [...] encounter Progress Notes Carlota Rahman OT - 02/26/2017 8:00 AM EDT OCCUPATIONAL THERAPY TREATMENT NOTE Referral Source: Abel Delvalle MD Next MD Follow-up: PRN Total Treatment time: 43 Minutes Timed Code Treatment Time: 43 minutes OCCUPATIONAL PROFILE: Fely Shaw is a 56 y.o. year old Right hand dominant female who slipped andfell at work in 07/2016 with resultant left rotator cuff proximal biceps rupture, and cervical spondylosis of left upper extremity radiculopathy in a C7-T1. Please see MRI report completed on 10/30/16 for more details. Fely Shaw is referred to Occupational Therapy for evaluation and treatment. Patient presents today alone. Date of onset of symptoms: July 2016 Date of surgery: N/A Pertinent History and/or Co-morbidities: 1. Left-sided muscle weakness 2. 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 THE DISABILITIES OF THE ARM,SHOULDER AND HAND SCORE (DASH) 12/24/2016 1. Open a tight or new jar Moderate Difficulty 2. Write No difficulty 3. Turn a mecnhaca No difficulty 4. Prepare a meal Mild difficulty 5. Push open a heavy door Moderate difficulty 6. Place an object on a shelf above your head Severe difficulty 7. Do heavy interventional radiologist (eg wash mcgowan, wash floors) Moderate difficulty 8. Garden or do yard work Severe difficulty 9. Make a bed Mild difficulty 10. Carry a shopping bag or briefcase Moderate difficulty 11. Carry a heavy object (over 10 lbs) Severe difficulty 12. Change a lightbulb overhead Severe difficulty 13. Wash or blow dry your hair Mild difficulty 14. Wash your back Mild difficulty 15. Put on a pullover sweater Moderate difficulty 16. Use a knife to cut food Mild difficulty 17. Recreational activities which require little effort (eg cardplaying, knitting, etc) No difficulty 18. Recreational activities in which you take some force or impact through your arm, shoulder or hand (eg golf, hammering, tennis, etc) Severe difficulty 19. Recreational activities in which you move your arm freely (eg playing frisbee, badAquaporinton, etc) Severe difficulty 20. Manage transportation needs (getting from one place to another) Mild difficulty 21. Sexual activities Mild difficulty 22. During the past week, to what extent has your arm, shoulder or hand problem interfered with yournormal social activities with family, friends, neighbours or groups? Not at all 23. During the past week, were you limited in your work or other regular daily activities as a result of your arm, shoulder or hand problem? Very limited 24. Arm, shoulder or hand pain Moderate 25. Arm, shoulder or hand pain when you performed any specific activity Moderate 26. Tingling (pins and needles) in your arm, shoulder or hand None 27. Weakness in your arm, shoulder or hand Moderate 28. Stiffness in your arm, shoulder or hand Moderate 29. During the past week, how much difficulty have you had sleeping because of the pain in your arm,shoulder or hand? Moderate difficulty 30. I feel less capable, less confident or less useful because of my arm, shoulder or hand problem Agree Please select the answers that best describes your physical ability in the past week. Did you have any difficulty: using your usual technique for your work? Severe Difficulty Did you have any difficulty: doing your usual work because of arm, shoulder or hand pain? Moderate Difficulty Did you have any difficulty: doing your work as well as you would like? Severe Difficulty Did you have any difficulty: spending your usual amount of time doing your work? Moderate Difficulty If you play more than one sport or instrument (or play both), please answer with respect to that activity which is most important to you. Do you currently play a sport or an instrument? Yes Did you have any difficulty: using your usual technique for playing your instrument or sport? Unable Did you have any difficulty: playing your musical instrument or sport because of arm, shoulder or hand pain? Unable Did you have any difficulty: playing your musical instrument or sport as well as you would like? Unable Did you have any difficulty: spending your usual amount of time practising or playing your instrument or sport? Unable DASH Score 42.5 DASH - Work Score 62.5 DASH Sports Score 100 Pain: (Assessed using the visual analog scale) At Rest: 4/10 pain down shoulder blades; 0/10 biceps; 0/10 left thumb With Activity: 04/06 about neck/scapula Relieving factors: medication including tylenol and neurotin, heating pads Special Testing Completed: Positive Froment's sign left Negative Froments sign on the right Negative Wartenberg's sign bilaterally 9 Hole Peg Test RIGHT LEFT LEFT 01/08/17 LEFT 02/04/17 Trial #1 18 seconds 18 seconds with 3 associate merchandise planner slips/ dropped pegs 18 seconds with 1 associate merchandise planner slip 18 seconds with 1 associate merchandise planner slip Mean for age/gender 17.86 seconds 19.48 [...] goniometer Right Left Left 01/08/17 Left 01/13/17 Shoulder Extension/Flexion 58/155 40/98 6-7/10 pain with ulnar nerve symptoms 40/88 4/10 pain Shoulder Abduction 150 46 57 7/10 pain Shoulder Internal/External Rot. WFL 62 external rotation 6 inches from inferior angle of contralateral scapula 60 external rotation 7 inches from inferior angle of scapula 50 external rotation 4/10 pain Elbow Extension/Flexion 0/151 -3/148 0/150 Wrist Extension/Flexion 70/70 45/70 65/70 65/65 Ulnar/Radial Deviation 40/30 30/30 35/25 Pronation/Supination 90/90 90/90 90/90 Measured in degrees of [...] Muscle Testing (MMT) Right Left Left 01/13/17 MMT RIGHT MMT Scapular Elevation 5/5 3/5 3/5 Shoulder Flexion 4/5 2/5 2/5 Shoulder Extension 4/5 2/5 2/5 Shoulder Abduction 4/5 2/5 2/5 Shoulder Adduction 5/5 2/5 2/5 Shoulder External Rotation 4-/5 2/5 2/5 Shoulder Internal Rotation 4-/5 2/5 2/5 Elbow Flexion 4+/5 3/5 1-2/10 4/5 1/10 neck pain Elbow Extension 4/5 2/5 4/10 pain 3+/5 Supination 5/5 3/5 4/5 Pronation 5/5 3/5 4/5 1/10 pain Wrist Extension 5/5 2/5 3/5 Wrist Flexion 5/5 3/5 3+/5 Wrist ulnar deviation 4/5 3+/5 3+/5 Wrist radial deviation 4/5 3/5 3/5 HAND STRENGTH: Manual Muscle Testing (MMT) Right Left Left 01/13/17 Left 02/12/17 Left 02/26/17 MMT MMT Opponens pollicis 5/5 3-/5 3+/5 3+/5 Flexor Pollicis Longus 5/5 3+/5 3+/5 3+/5 Lumbricals 1 and 2 5/5 3/5 4/10 4+/10 4+/5 Lumbricals 3 and 4 5/5 2/5 3+/5 4/10 3/5 Adductor Pollicis 5/5 3-/5 3+/5 3/5 Dorsal interossei 5/5 3-/5 3+/5 4/10 3+/5 Palmar interossei 5/5 3-/5 3+/5 4/10 3/5 Abductor pollicis longus 5/5 3-/5 3-/5 4/10 4/5 Abductor pollicis brevis 4/5 3-/5 3 4/10 Extensor pollicis longus 4/5 2/5 2/5 3+/5 Extensor pollicis brevis 4/5 2/5 3/5 3+/5 Extensor digitorum communis 5/5 3-/5 3/5 3+/5 Radially to 3 ulnarly Extensor indicis 4+/5 3-/5 3+/5 4-5/5 Extensor digiti minimi 5/5 3-/5 3/5 3/5 Abductor digiti minimi 5/5 3/5 3/5 3/5 Strength: Insurance Office Supervisor Testing with Dynamometer setting #2 Pinch Testing with Pinch Gauge Right Left 12/25/16 Left 01/08/17 Left 01/26/17 Left 01/29/17 Left 02/04/17 Left 02/12/17 Insurance Office Supervisor setting 2 69.4/66.2/63.7 20.7/16.8/16.6 29.0/29.2/25.9 16.3/11.1/11.5 7/10 pain back of arm 12.8/9.3/13.3 4/10 13.4/14.4/11.8 0/10 pain 8/10.3/7.3 Insurance Office Supervisor Average 66.4 18 27.96 12.9 11.8 13.2 8.6 Insurance Office Supervisor norms for age and gender 61.7 57.3 57.3 57.3 57.3 57.3 [place] 08/08/11 Average: 11 /3/4 Average: 3.3 5.5/6/5.5 Average: 5.7 01/30/5 Average: 5 01/29/5 Average: 4.7 3/2.5/3 3 Pt 13.5//14 Average: 13.5 //4 Average: 3.3 2/2/2 Average: 2 //3 Average: 3 3/2/2 Average: 2.3 3/2/2 Tip // Averaged 4.6 0/1/0 Average: 0.3 09/28/.5 Average: 1.2 09/28/.5 Average: 1.5 2/2/2 Average: 2 Women Hand Insurance Office Supervisor Strength in Pounds: Mean (SD) Age Right [...] 1366 mean and 1312 women, community based [place] population, healthy adults, Tanmay hand dynamometer); (Edward Sharp et al, 2008; n = 224; mean age = 75.4 (6.8); good health with normal hand functions; Tanmay dynamometer) Treatment Today: Reassessed UE strength via MMT. Please see above for results. Therapeutic exercise Position Equipment Level of assistance Resistance Repetitions/Time Response Finger extensor strengthening Supported short sit velcro board Verbal and visual cues for correct completion Min-moderate resistance with thin strip of velcro 3 sets of 10 repetitions Patient demonstrated improved strength and activity tolerance as evidenced by increased repetition today UE Strengthening: wrist flexion, wrist extension, wrist radial/ulnar deviation, forearm pronation/supination, elbow flexion Elbow extension Supported short sit Theraband, towel roll Verbal and visual cues to maintain healthyjoint positioning Yellow, min resistive theraband 2 sets of 10 repetitions for each exercise Patientdemonstrated improved activity tolerance as evidenced by increased repetition Patient cued to adjust tension in theraband as needed for pain free exercise completion Stretching completed between each exercise Patient benefited from use of towel roll to prevent compensatory movement patterns Patient unable to tolerate resisted elbow extension today pain free. Patient completed active elbow extension with gravity eliminated in supine pain free CLINICAL DECISION MAKING: Fely reports increased pain after work that takes several days to resolve. Fely continues to demonstrate generalized UE weakness however, weakness most prominent in musculature innervated by ulnar nerve. In addition to weakness, Fely continues to experience paresthesias indigits 4 and 5. There is no improvement in paresthesias with use of soft block at nighttime to avoidend range elbow flexion/extension or use of elbow pad. Fely has participated in a work site assessment in attempt to identify aggravating factors. Goals for improved associate merchandise planner and pinch strength will be progressed for another interim. Fely Shaw has fair to good potential for gains with therapy with identified needs for skilled therapy for treatment of deficits noted during evaluation today, to maximize functional performance during daily activities. Intermediate Goals (to be met by discharge): Date Goal Met: 1.) Fely Shaw will demonstrate significantly improved functional performance from re-assessmentas measured by a total average score of >/=8/10 using the PSFS. Goal Status: In progress 2.) Fely Shaw will be able resume significantly greater occupational roles independently or modified, based on the occupational profile, with a DASH score of less than 32. Goal Status: In progress 3.) Patient will demonstrate increased grasp strength by 10# from initial 18 pounds with the left hand to increase independence in functional activities. Goal Status: In progress 4.) Patient will demonstrate increased lateral [place] pinch strength by 3-4# from initial 3 pounds with the left hand to increase independence in functional activities. Goal Status: In progress 5.) Patient will demonstrate increased soto pinch strength by 3-4# from initial 3 pounds with theleft hand to increase independence in functional activities. Goal Status: In progress Short Term Goals (progress to 03/06/17): Date Goal Met: 01/08/17 Fely Shaw will be independent with home exercise program. Goal Status: Met 01/08/17 Fely Shaw will gain 10 degrees of wrist extension to demonstrate significantly improved functional performance as measured by >/= 2 point improvement on the total average score of the PSFS. Goal Status: Met Fely Shaw will have decreased pain with activity to </= 4/10 to be able to complete bathing/dressing. Goal Status: In progress 01/08/17 Patient will demonstrate increased grasp strength by 2-3# from initial 18 pounds with the left hand to increase independence in functional activities. Goal Status: Met 01/08/17 Patient will demonstrate increased lateral [place] pinch strength by 1-2# from initial 3 pounds with the left hand to increase independence in functional activities. Goal Status: Met Patient will demonstrate increased soto pinch strength by 1-2# from initial 3 pounds with the left hand to increase independence in functional activities. Goal Status: In progress 02/19/17 Patient will demonstrate significantly improved fine motor coordination for ADL/IADL performance including managing clothing fasteners as evidenced by completion of 9 hole peg test in </= 18seconds without any associate merchandise planner slips Goal Status: Met Patient will demonstrate increased grasp strength by 2-3# from current 27.9 pounds with the left hand to increase independence in functional activities. Goal Status: In progress Patient will demonstrate increased lateral [place] pinch strength by 1-2# from current 5.7 pounds with the left hand to increase independence in functional activities including opening IV packaging at work. Goal Status: In progress PLAN: The patient is to be seen 2 time(s) per week, for 8 week(s) to progress toward short and mcc goals. Therapeutic exercises to increase functional mobility Splinting [...] PsyD (TeleHealth) [facility] [place] [address] (Wo rk) documented as of this encounter Visit Diagnoses Diagnosis Left-sided muscle weakness Muscle weakness (generalized) Cervical disc disorder with radiculopath y of mid-cervical region Brachial neuritis or radiculitis nos documented in this encounter Care Teams Cloth Spreader Relationship Specialty Start Date End Date Susie López APRN PCP - General 05/21/15 06/30/19 documented as of this encounter
--- OUTSIDE RECORDS SUMMARY | 2022-07-25 10:51 | XMS_ITS | Encounter Summary ---
:1960 Author Organization [facility] [place] [address] Care Team Providers Name Role Phone Susie López JE Primary Care Provider Reason for Visit Reason Comments Neck Pain Encounter Details Date Type Department Care Team Description 08/07/2017 Office Visit Spine Center at [facility] non Ivon Cabrera, [place] [address] Social History Tobacco Use Types Packs/Day [...] encounter Progress Notes Ivon Cabrera, PT - 08/07/2017 3:00 PM EST Spine Center Physical Therapy Note Referring Provider: Abel Delvalle M.D. Diagnosis: 1. Neck pain 2. ACDF C7-T1 with ICBG by Abel Delvalle M.D. on 03/23/2017 3. 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 Shaw reports the neck pain is a little better but her low back pain remains unchanged. She met with Dr. Bauer earlier today and had injection directed to the left shoulder. Ms. Shaw currently complains of neck pain radiating to the left shoulder. Symptoms worsen when looking down, looking up, turning to the left, and sitting. Symptoms ease when keeping the neck in midline and resting the left hand on the right shoulder. Ms. Shaw also complains of low back pain radiating to the left buttock and intermittently down the anterior and posterior aspect of the left thigh to the calf andheel. There is numbness in the anterior aspect [...] cervical spine is limited to 60?? flexion, 60??extension, 70?? right rotation, 70?? left rotation, 40?? right sidebending, and 40?? left sidebending. End range extension, left rotation, and left sidebending worsens the pain. Spurling maneuver to the left worsens the neck and left shoulder pain. Active range of motion of the lumbar spine is limitedto 50?? flexion and 10?? extension. End range flexion and extension worsens [...] 2-3 times per day. Assessment: Ms. Shaw neck pain and range of motion seems to be gradually improving. Her low back and left leg pain is no better. She is independent with her home exercise program and I do not believe that any further physical therapy in isolation will be helpful at this time. Ms. Shaw may benefit from a referral for intensive multidisciplinary rehabilitation such as our [facility]. Goals: 1. Independent with home exercise program 2. Able to turn to the left and look over the shoulder without discomfort 3. Able to look up without discomfort without discomfort Plan: Discharge from physical therapy. Ms. Shaw wishes to meet with Abel Delvalle MD to discuss whether there is anything that can be done from a surgical perspective to relieve her ongoing low back and leg pain. She was encouraged to call with any questions or concerns regarding todays visit or the home exercise program. Length of visit: A total of 20 minutes was spent re-assessing, treating, and instructing Fely Shaw in a home exercise program. documented in this encounter Plan of Treatment Upcoming Encounters Date Type Specialty Care Team Description 08/07/2022 TH Visit [facility] Nahid Carl PsyD (TeleHealth) [facility] [place] [address] (Wo rk) documented as of this encounter Visit Diagnoses Diagnosis Neck pain Cervicalgia documented in this encounter Care Teams Preschool Assistant Principal Relationship Specialty Start Date End Date Susie López APRN PCP - General 05/21/15 06/30/19 documented as of this encounter
--- OUTSIDE RECORDS SUMMARY | 2022-07-25 10:51 | XMS_ITS | Encounter Summary ---
:1960 Author Organization [facility] [place] [address] Care Team Providers Name Role Phone ReneSusie fleming JE Primary Care Provider Encounter Details Date Type Department Care Team Description 05/21/2017 Office Visit Occupational Therapy Carlota Rahman Le [facility] at [facility] OT weakness [address] [place] [address] PHYSICAL MEDICINE & [place] [address] Social History Tobacco Use Types Packs/Day Years [...] encounter Progress Notes Carlota Rahman, OT - 05/21/2017 9:00 AM EDT Images from the original [...] C7-1 and Iliac Crest Bone Graft 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 [...] #1 18 seconds 18 seconds with 3 ripshear operator slips/ dropped pegs 18 seconds with 1 ripshear operator slip 18 seconds with 1 ripshear operator slip 18 seconds with 1grip slip [...] minimi 5/5 3/5 3/5 3+/5 4/5 Strength: Ditcher Operator Testing with Dynamometer setting #2 Pinch Testing with Pinch Gauge Right Left 12/25/16 Right 04/21/17 Left 04/21/17 Left 05/14/17 Ditcher Operator setting 2 69.4/66.2/63.7 20.7/16.8/16.6 59.7/57.6/41.3 28.8/23.1/21.3 30.5/29.6/32.3 Ditcher Operator Average 66.4 18 52.9 24.2 30.8 Ditcher Operator norms for age and gender 61.7 57.3 61.7 57.3 57.3 [place] 08/08/11 Average: 11 Average: 3.3 10.5/06/04 Average: 8.8 Average: 6.3 Average: 5.7 3 Pt 13./ Average: 13.5 Average: 3.3 Average: 9 Average: 6.7 Average: 5.7 Tip Averaged 4.6 0/1/0 Average: 0.3 5.5// Average: 4.5 Average: 3 Average: 3.7 Women Hand Ditcher Operator Strength in Pounds: Mean (SD) Age Right [...] 1366 mean and 1312 women, community based [place] population, healthy adults, Tanmay hand dynamometer); (Edward Sharp et al, 2008; n = 224; mean age = 75.4 (6.8); good health with normal hand functions; Tanmay dynamometer) Treatment Today: UE strengthening: shoulder strengthening via step outs x2 sets of 5 repetitions with 2.5# of resistance Functional strengthening via BTE with various attachments for: wrist flexion, wrist extension, wristradial deviation, wrist ulnar deviation, forearm pronation, forearm supination, lateral pinch, palmar pinch Ditcher Operator strengthening with calibrated gripper set at 20#: 3 sets of 10 repetitions Reviewed home program for wrist/forearm strengthening with theraband, hand strengthening with theraputty/digiflex (lumbrical pulls, palmar pinch, tip pinch, lateral pinch, gross grasp, hook fist) CLINICAL DECISION MAKING: Fely demonstrated good tolerance to increased resistance today with reports of 0/10 pain during and after exercise completion. Fely Shaw has good potential for gains withtherapy with identified needs for skilled therapy for treatment of deficits noted during evaluation today, to maximize functional performance during daily activities. Group Home Goals (to be met by discharge): Date [...] weeks to progress towards short term and terminal gauger supervisor goals Therapeutic exercises to increase functional mobility [...] and Spine Center Nahid Carl PsyD (TeleHealth) [facility] [address], [place] [address] (Wo rk) documented as of this encounter Visit Diagnoses Diagnosis Left-sided muscle weakness Muscle weakness (generalized) documented in this encounter Care Teams Cheesemaker Relationship Specialty Start Date End Date Susie López APRN PCP - General 05/21/15 06/30/19 documented as of this encounter
--- OUTSIDE RECORDS SUMMARY | 2022-07-25 10:51 | XMS_ITS | Encounter Summary ---
:1960 Author Organization [facility] [address] Care Team Providers Name Role Phone Susie López APRN Primary Care Provider Reason for Visit Reason Onset Date Comments Follow Up Surgery 03/25/2017 recent discharge Encounter Details Date Type Department Care Team Description 03/25/2017 Patient Outreach Live Well Work Well Suise López, Follow Up Surgery Primary Care at [facility] (recent discharge) [address] [place] ENDOCRINOLOGY [id number] [place] [id number] [phone] Social History Tobacco Use Types Packs/Day Years [...] this encounter Miscellaneous Notes Telephone Encounter - Rosa Maria Murillo RN - 03/25/2017 10:18 AM EDT This nurse phoned Fely at her home number. She reports feeling comfortable at home, pain well controlled, has only had to take one oxycodone so far. Notes some constipation which she is working on, has miralax at home if needed. She defers follow up in PC at this time. Encouraged her to call us for concerns. She has appt in Ortho for surgical follow up in mid March. documented in this encounter Plan of Treatment Upcoming Encounters Date Type Specialty Care Team Description 08/07/2022 [facility] Nahid Carl PsyD (TeleHealth) [facility] [address] [place], [place] [address] (Wo rk) documented as of this encounter Visit Diagnoses Not on filedocumented in this encounter Care Teams Clinical Appeals Rn Relationship Specialty Start Date End Date Susie López APRN PCP - General 05/21/15 06/30/19 documented as of this encounter
--- OUTSIDE RECORDS SUMMARY | 2022-07-25 10:51 | XMS_ITS | Encounter Summary ---
:1960 Author Organization [facility] [place] [address] Care Team Providers Name Role Phone Rene, Ssuie JE Primary Care Provider Reason for Visit Reason Comments Neck Pain Occupational Therapy (Routine) - Closed Specialty Diagnoses / Procedures Referred By Contact Refer red To Contact Occupational Therapy Diagnoses Cervical disc disorder with radiculopathy of mid-cervical region Left-sided muscle weakness Left arm pain Abel Delvalle MD [facility] Spine [facility] enter [facility] [place] [phone] Referral ID Status Reason Start Date Expiration Date Visits V isits Requested Authorized [id number] Closed Evaluate and 05/29/2017 05/29/2018 1 1 Treat Encounter Details Date Type Department Care Team Description 06/09[facility]2017 [facility]; Amanda A, OT Cervical disc disorder with [place]iculopathy [place] [address] Social History Tobacco Use Types Packs/Day [...] Sign Reading Time Taken Comments Blood Pressure 143/83 06/09/2017 1:02 PM EDT Pulse 79 06/09/2017 1:02 PM EDT Temperature - - Respiratory Rate - - Oxygen Saturation - - Inhaled Oxygen Concentration - - Weight - - Height - - Body Mass Index - - documented in this encounter Progress Notes Tawanna Bolton OT - 06/09/2017 1:00 PM EDT Encounter incomplete due to hospital wide emergency evacuation. Pt rescheduled to 06/11/17 at 1:00PM. documented in this encounter Plan of Treatment Upcoming Encounters Date Type Specialty Care Team Description 08/07/2022 TH Visit [facility] Nahid Carl PsyD (TeleHealth) [facility] [address] [place], [place] [address] (Wo rk) Scheduled Referrals Name Type [...] nos documented in this encounter Care Teams Soap Worker Relationship Specialty Start Date End Date Susie López APRN PCP - General 05/21/15 06/30/19 documented as of this encounter
--- OUTSIDE RECORDS SUMMARY | 2022-07-25 10:51 | XMS_ITS | Encounter Summary ---
:1960 [place] [address] Care Team Providers Name Role Phone Rene Susie WOOTEN Primary Care Provider Reason for Visit Auth/Cert Specialty Diagnoses / Procedures Referred By Contact Refer red To Contact Diagnoses Cervical Radiculopathy Procedures PRO ARTHRODESIS, ANT INTERBODY,DECOMPRESSION; CERVICAL BELOW C2 ARTHRODESIS, ANT INTERBODY,DECOMPRESSION; CERVICAL BELOW C2 (WRVU 25) Referral ID Status Reason Start Date Expiration Date Visits Requ ested Visits Authorized [id number] 1 1 Encounter Details Date Type Department Care Team Description 03/23/2017 Anesthesia Event Main Operating Room Jeremie Souza MD [facility] ANESTHESIOLOGY [place]PT [place] [address] [facility]3] Christ Warren MD [facility] ANESTHESIOLOGY [place] [address] [place] [phone] Anesthesia Record Procedure Summary Procedure Name Responsible Anesthesia Start Anesthesia Stop Time Anesthesiologist Time QUYNHRODJEANETTE CAGE Daniel, MD 03/23/17 0732 03/23/17 1016 INTERBODY,DECOMPRES ELIZABETH; CERVICAL BELOW C2 (WRVU 25) (Bilateral Neck) Events Date Time Event Comment 03/23/2017 0705 0732 Start 0733 AN Verify 0734 An Start Data 0742 An Induction 0745 An Intubation 0750 Anesthesia Ready 0823 Procedure Start 0852 Break/Relief In Maryanne Hendricks , APPRENTICE PAINTER HAND 0902 An Data Art BP measurements intermittently inacurrate due to surgeon body pressing against patient arm 0933 An Data Art BP measurements inaccurate due to surgeon body position ag ainst arm 1008 Extubation/LMA Out 1010 an stop data 1015 Recovery or ICU Handoff Patient care was transferred to the destination unit staff after review of the patient's medica l history, current anesthetic/surgi david status and plan, according to the Provider Handoff Checklist. 1016 Stop Name Total Midazolam 2 mg fentaNYL 200 mcg Propofol 240 mg Rocuronium 40 mg Ondansetron 4 mg Dexamethasone 8 mg Neostigmine 2 mg Glycopyrrolate 0.4 mg ceFAZolin (ANCEF) 2g in dextrose 5% 100 mL 2 g Propofol INF 238.14 mg lactated Ringers infusion 1,000 mL 800 mL Agents Name O2 Air N2O Sevoflurane (et) Blood No blood administrations on file. Lines, Drains, and Airways Type Details Placement Removal Incision back; midline; 05/26/22 08/14/14 1156 by 2 1715 by (LDA cleanup utility Weinberg, Micaela pottere L RA#[id number]); 1715 (LDA cleanup utility RA#[id number]) PIV 03/23/17; 0731; 03/23/17 0731 by 03/24/17 1159 b y metacarpal vein (top of Luke, Daya Galindo, RN Nilda [place], hand), right; RN [id number] catheter system; 18 gauge, 1 in length; md trujillo ; intradermal injection, tolerated well, appears comfortable, age-appropriate response; removed per physician; 03/24/17; 1159 ETT Mask Ventilation: Easy 03/23/17 0750 by 03/23/17 1008 by (1); ETT Type: Cuffed; Christ Warren MD Muss atto, John A, MD ETT Size: 7 mm; Mac Blade: 3; Notes: Asleep, Pre-O2, Cricoid Pressure, Stylette; Attempts: 1; Laryngoscopy Grade: 2; ETT Placement Verified By: Auscultation, Capnometry; Secured at Teeth: 22 cm; Inserted by: Mussatto Incision 03/23/17; 0823; cervical 03/23/17 0823 by 1715 by spine; 05/26/22 (Mary Salmeron, Shanti Tena cleanup utility RA#[id number]); 1715 (LDA cleanup utility RA#[id number]) Incision 03/23/17; 0842; hip; ICBG 03/23/17 0842 by 05/26 1715 by site; 05/26/22 (Mary Salmeron, Shanti Tena cleanup utility RA#[id number]); 1715 (LDA cleanup utility RA#[id number]) Drain/Device Site 03/23/17; 0946; anterior; 03/23/17 0946 by 1003 by cervical spine; Mary Xiao, Dominga Barbosa, RN collapsible closed device; 03/23/17; 1003 documented in this encounter Social History Tobacco [...] encounter OR Notes Anesthesia Postprocedure Evaluation - Christ Warren MD - 03/23/2017 12:04 PM EDT [facility] [place]hesiology Post-procedure Note Patient: Fely Shaw Procedure Summary Date Anesthesia Start Anesthesia Stop Room / Location 03/23/[address] [place] [address] OR 12 / [facility] MAIN OR Procedure Diagnosis Surgeon Responsible Provider ARTHRODESIS, ANT INTERBODY,DECOMPRESSION; CERVICAL BELOW C2 (WRVU 25) (Bilateral Neck); INSERTION INTERBODY BIOMECH DEV TO INTERVEBRAL DISC SPACE, EA INTERSPACE (WRVU 4.25) (Bilateral ); AUTOGRAFT FORSPINE SURGERY ONLY; MORSELIZED (THROUGH SEPARATE SKIN OR FASCIAL INCISION) (WRVU 2.79) (Bilateral );ANT. SPINAL INSTRUMENTATION, 2-3 VERTEBRA, SEGMENTED (WRVU 11.94) (Bilateral Neck); MODIFIER GLOBUS PROVIDENCE (Bilateral ); MODIFIER C7 (Bilateral ); MODIFIER C8 (Bilateral ); MODIFIER T1 (Bilateral )Cervical disc disorder with radiculopathy of mid- cervical region (Cervical Radiculopathy) Abel Delvalle MD Cotoi, Daniel, MD All Anesthesia Providers: Anesthesiologist: Jeremie Eubanks MD Designer: Christ Warren MD Last (1hr) Vitals: BP 144/68 (03/23/17 1145) Temp Pulse 76 (03/23/17 1145) Resp 20 (03/23/17 1145) SpO2 98 % (03/23/17 1145) Patient Location: PACU/[facility] Level of Consciousness: Awake and Alert Pain Management: Satisfactory Analgesia PONV: None Cardiovascular Status: At Baseline and Hemodynamically Stable Respiratory Status: At Baseline and Stable Respiratory Status Postoperative Fluid Status: Intravascular EUvolemia Possible Anesthetic Complications: NONE apparent at time of evaluation Final Primary Anesthesia Type: General (The anesthetic type performed was the same as planned.) Comments: Pt recovering without complications in the PACU, doing well. Christ Warren MD Anesthesia Preprocedure Evaluation - Jeremie Eubanks MD - 03/22/2017 8:00 AM EDT Pre-Anesthesia Evaluation for: Fely Shaw a 56 y.o. female. Procedure(s): ARTHRODESIS, ANT INTERBODY,DECOMPRESSION; CERVICAL BELOW C2 (WRVU 25) INSERTION INTERBODY BIOMECH DEV TO INTERVEBRAL DISC SPACE, EA INTERSPACE (WRVU 4.25) AUTOGRAFT FOR SPINE SURGERY ONLY; MORSELIZED (THROUGH SEPARATE SKIN OR FASCIAL INCISION) (WRVU 2.79) ANT. SPINAL INSTRUMENTATION, 2-3 VERTEBRA, SEGMENTED (WRVU 11.94) MODIFIER GLOBUS PROVIDENCE MODIFIER C7 MODIFIER C8 MODIFIER T1 Patient Active Problem List Diagnosis ??? Milium ??? Left-sided muscle weakness ??? Neck pain ??? Cervical disc disorder with radiculopathy of mid-cervical region ??? Biceps rupture, proximal ??? Acute pain of left shoulder ??? Lumbosacral spondylosis without myelopathy ??? Lumbar strain ??? Lower back pain ??? Finger sprain ??? Left knee pain ??? 12/11/10 ARTHROSCOPY KNEE,MENISCECTOMY SINGLE WITH SHAVING OSC /LEFT/LATERAL Past Medical History: Diagnosis Date ??? Lumbosacral spondylosis without myelopathy 06/23/2014 Past Surgical History: Procedure Laterality Date ??? BACK SURGERY 2014 see neuro notes ??? LAMINOTOMY Left 2013 [facility] Social History Substance Use Topics ??? Smoking status: Former Smoker Types: Cigarettes Quit date: 08/12/2009 ??? Smokeless tobacco: Never Used ??? Alcohol use Yes Comment: Occasional History Drug Use No Allergies Allergen Reactions ??? Allergen Nqd-Qiyhm-Svgkv Bee Anaphylaxis ??? Venom-Wasp Anaphylaxis ??? Yixce-Lazus-Dyuco Hornet Anaphylaxis ??? Venom-Yellow Hornet Anaphylaxis ??? Venom-Yellow Jacket Anaphylaxis ??? Cis Free Text Allergy food dyes - Hives( gel type medication- bright red and yellow) ??? Nexium [Esomeprazole Magnesium] Other (See Comments) Light headed ??? Norflex [Orphenadrine Citrate] Nausea Only Dizziness Medications: MAR and/or home medications have been reviewed. Physical Exam: There were no vitals filed for this visit. There is no height or weight on file to calculate BMI. Airway Assessment: Mallampati: IV TM distance: >3 FB Neck ROM: full Cardiovascular Assessment: Rhythm: regular Rate: normal Pulmonary Assessment: breath sounds clear to auscultation Dental Assessment: - normal exam Misc Assessment: Patient is wearing No contact(s). IV access: Peripheral line Anesthesia Plan: ASA 2 general, with a(n) intravenous induction Fely hSaw is a 56 y.o. female with a hx significant for multiple musculoskeletal injuries, notably cervical radiculopathy (causing left arm weakness), presenting for the following procedure(s) withDr. Delvalle: Procedure(s): ACDF C7-T1 Allograft vs Autograft. Instrumentation per note from Dr. Delvalle on 03/11/17. ARTHRODESIS, ANT INTERBODY,DECOMPRESSION; CERVICAL BELOW C2 (WRVU 25) INSERTION INTERBODY BIOMECH DEV TO INTERVEBRAL DISC SPACE, EA INTERSPACE (WRVU 4.25) AUTOGRAFT FOR SPINE SURGERY ONLY; MORSELIZED (THROUGH SEPARATE SKIN OR FASCIAL INCISION) (WRVU 2.79) ANT. SPINAL INSTRUMENTATION, 2-3 VERTEBRA, SEGMENTED (WRVU 11.94) MODIFIER GLOBUS PROVIDENCE MODIFIER C7 MODIFIER C8 MODIFIER T1 Anesthesia Hx: Only previous anesthesia records on file are from a 2011 knee arthroscopy -> GA, easy mask vent, iGel3, no complications noted. NPO status: adequate Pt activity level prior to surgery/admission to hospital: METs > 4 Labs: 03/13/17 1434 WBC 6.6 HGB 13.9 HCT 42.4 PLATELET 240 03/13/17 1434 NA 144 K 4.3 CL 104 CO2 25 BUN 16 CREATININE 1.14 No results for input(s): AST, ALT, ALKPHOS, BILITOT, BILIDIR in the last 7068 hours. No results for input(s): PT, INR, PTT in the last 168 hours. Lab Results Component Value Date ABORH B Pos 03/13/2017 Plan is for GA with ETT, standard ASA monitors, and adequate IV access. Christ Warren MD PGY-2, Gym Supervisor Pager #[phone] Region - Other Informed Consent: Anesthetic plan and risks discussed with patient. Plan discussed with resident and attending. PAT Staff Note documented in this encounter Plan of Treatment [...] MAR Action Action Date Dose Rate Site ceFAZolin (ANCEF) 2g in dextrose 5% Given 03/23/2017 7:32 AM EDT 2 g 100 mL 2 g, Intravenous, EVERY 3 HOURS, 1 dose, First dose on Thu03/23/17 at 0715, Administer over 30 Minutes, Redose after 3 hours., Intra-Operative (Intra-Procedure), Indication for (Active or Suspected): Prophylaxis dexamethasone (DECADRON) injection Given 03/23/2017 8:09 AM EDT 4 mg PRN, Starting on Thu03/23/17 at 0750, Until Thu03/23/17 at 1045, Anesthesia Intra-op, Routine Given 03/23/2017 7:50 AM EDT 4 mg fentaNYL 50 mcg/mL multi-dose injection Given 03/23/2017 8:30 AM EDT 50 mcg PRN, Starting on Thu03/23/17 at 0742, Until Thu03/23/17 at 1045, Pain, Anesthesia Intra-op, Routine Given 03/23/2017 8:27 AM EDT 50 mcg Given 03/23/2017 7:42 AM EDT 100 mcg glycopyrrolate (ROBINUL) multi-dose inje ction Given 03/23/2017 9:55 AM EDT 0.4 mg PRN, Starting on Thu03/23/17 at 0955, Until Thu03/23/17 at 1045, Anesthesia Intra-op, Routine lactated Ringers infusion 1,000 New Bag 03/23/2017 7:33 AM EDT 1,000 mLs 100 mL/hr mL 1,000 mL, at 100 mL/hr, Intravenous, CONTINUOUS, Starting on Thu03/23/17 at 0715, Until Thu03/23/17 at 1216, Day of Surgery (Day of Procedure) New Bag 03/23/2017 7:32 AM EDT midazolam (PF) (VERSED) 1 mg/mL multi-dose Given 03/23/2017 7:34 AM EDT 1 mg injection PRN, Starting on Thu03/23/17 at 0732, Until Thu03/23/17 at 1045, Sleep, Anesthesia Intra-op, Routine Given 03/23/2017 7:32 AM EDT 1 mg neostigmine (BLOXIVERZ) injection Given 03/23/2017 9:54 AM EDT 2 mg PRN, Starting on Thu03/23/17 at 0954, Until Thu03/23/17 at 1045, Anesthesia Intra-op, Routine ondansetron (ZOFRAN) injection Given 03/23/2017 9:32 AM EDT 4 mg PRN, Starting on Thu03/23/17 at 0932, Until Thu03/23/17 at 1045, Nausea, Anesthesia Intra-op, Routine propofol (DIPRIVAN) 10 mg/mL bolus injection Given 7 9:55 AM EDT 40 mg (Anesthesia) PRN, Starting on Thu03/23/17 at 0742, Until Thu03/23/17 at 1045, Anesthesia Intra-op Given 03/23/2017 7:42 AM EDT 200 mg propofol (DIPRIVAN) Rate/Dose Change 03/23/2017 9:37 15 mcg/kg/min 6. 6 mL/hr infusion AM EDT CONTINUOUS PRN, Starting on Thu03/23/17 at 0750, Until Thu03/23/17 at 1045, Anesthesia Intra-op, Routine New Bag 03/23/2017 7:50 AM EDT 30 mcg/kg/min 13.2 mL/hr rocuronium (ZEMURON) multi-dose injectio n Given 03/23/2017 7:44 AM EDT 40 mg PRN, Starting on Thu03/23/17 at 0744, Until Thu03/23/17 at 1045, Anesthesia Intra-op, Routine documented in this encounter Care Teams Internal Revenue Agent Relationship Specialty Start Date End Date Susie López APRN PCP - General 05/21/15 06/30/19 documented as of this encounter
--- OUTSIDE RECORDS SUMMARY | 2022-07-25 10:51 | XMS_ITS | Encounter Summary ---
:1960 Author Organization [facility] [address] Care Team Providers Name Role Phone Rene, Susie JE Primary Care Provider Encounter Details Date Type Department Care Team Description 06/09/2017 Telephone [facility] at [facility] [place] [address] Social History Tobacco Use Types Packs/Day Years [...] Notes Telephone Encounter - Danni Blum - 06/09/2017 11:17 AM EDT Left message on machine for patient to call back [phone] regarding ADA paperwork for her WRAP with Tawanna today. We have not received it via fax, so we need to find out if the patient has the paperwork to bring with her to today's appointment. documented in this encounter Plan of Treatment Upcoming Encounters Date Type Specialty Care Team Description 08/07/2022 TH Visit [facility] Nahid Carl PsyD (TeleHealth) [facility] [address] [place] [address] (Wo rk) documented as of this encounter Visit Diagnoses Not on filedocumented in this encounter Care Teams Help Desk Analyst Relationship Specialty Start Date End Date Susie López APRN PCP - General 05/21/15 06/30/19 documented as of this encounter
--- OUTSIDE RECORDS SUMMARY | 2022-07-25 10:51 | XMS_ITS | Encounter Summary ---
:1960 Author Organization [employer] [place] [address] Care Team Providers Name Role Phone ReneSusie fleming EJ Primary Care Provider Encounter Details Date Type Department Care Team Description 03/05/2017 Office Visit Occupational Therapy Carlota Rahman Le ft-sided muscle at [facility] OT weakness [address] [place] [address] PHYSICAL MEDICINE & [place] [address] Social History Tobacco Use Types Packs/Day Years [...] encounter Progress Notes Carlota Rahman, OT - 03/05/2017 9:45 AM EDT OCCUPATIONAL THERAPY PROGRESS NOTE Referral Source: Abel Delvalle MD Next MD Follow-up: PRN Total Treatment time: 45 Minutes Timed Code Treatment Time: 45 minutes OCCUPATIONAL PROFILE: Fely Shaw is a [...] symptoms: July 2016 Date of surgery: N/A 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 Patient previously worked [...] 10/10) Activity At Evaluation 01/08/17 02/04/17 03/05/17 1.) Donning shirts overhead 3 9 6 10 2.) Washing hair 5 5 5 8 3.) sewing 7 6 4 6-7 4.) Cooking; handling heavy pots and pans 3 4 4 6 5.) opening containers 5 5 5 6 6.) lifting/sliding/pushing/pulling at work >/= 50 1 1 2 6 Average Score: 4 5.8 5.2 7.2 Disabilities of the Arm, Shoulder, and Hand (DASH): DASH Score: 42.5 Standardized measurement of functional limitation related to an upper extremity disability, using 0-100 scale indicating percent of perceived functional impairment. THE DISABILITIES OF THE ARM,SHOULDER AND HAND SCORE (DASH) 12/24/2016 1. Open a tight or new jar Moderate Difficulty 2. Write No difficulty 3. Turn a [place] No difficulty 4. Prepare a meal Mild difficulty 5. Push open a heavy door Moderate difficulty 6. Place an object on a shelf above your head Severe difficulty 7. Do heavy client services account manager (eg wash mcgowan, wash floors) Moderate difficulty [...] move your arm freely (eg playing frisbee, badZumobiton, etc) Severe difficulty 20. Manage transportation needs [...] using the visual analog scale) At Rest: 2/10 pain down shoulder blades; 0/10 biceps; 1/10 deltoid, 0/10 left thumb With Activity: 4-710 about neck/scapula; 3-410, 3-4/10 deltoid, 3-6/10 left thumb Relieving factors: medication including tylenol and neurotin, heating pads Special Testing Completed: Positive Froment's sign left Negative Froments sign on the right Negative Wartenberg's sign bilaterally 9 Hole Peg Test RIGHT LEFT LEFT 01/08/17 LEFT 02/04/17 LEFT 03/05/17 Trial #1 18 seconds 18 seconds with 3 rebeamer slips/ dropped pegs 18 seconds with 1 rebeamer slip 18 seconds with 1 rebeamer slip 18 seconds with 1grip slip Mean [...] Left Left 01/08/17 Left 01/13/17 Left 03/05/17 Shoulder Extension/Flexion 58/155 40/98 6-7/10 pain with ulnar nerve symptoms 40/88 4/10 pain 50/115 5/10 Shoulder Abduction 150 46 57 7/10 pain 112 4/10 pain Shoulder Internal/External Rot. WFL 62 external rotation 6 inches from inferior angle of contralateral scapula 60 external rotation 7 inches from inferior angle of scapula 50 external rotation 4/10 pain 3.5 inches from inferior angle of scapula 47 external rotation 4/10 pain Elbow Extension/Flexion 0/151 -3/148 0/150 0/150 Wrist Extension/Flexion 70/70 45/70 65/70 65/65 70/70 Ulnar/Radial Deviation 40/30 30/30 35/25 35/30 Pronation/Supination 90/90 90/90 90/90 90/90 Measured in degrees [...] (MMT) Right Left Left 01/13/17 Left 03/05/17 MMT RIGHT MMT Scapular Elevation 5/5 3/5 3/5 4/5 Shoulder Flexion 4/5 2/5 2/5 3+/5 Shoulder Extension 4/5 2/5 2/5 3+/5 Shoulder Abduction 4/5 2/5 2/5 3+/5 Shoulder Adduction 5/5 2/5 2/5 3/5 Shoulder External Rotation 4-/5 2/5 2/5 3/5 Shoulder Internal Rotation 4-/5 2/5 2/5 3/5 Elbow Flexion 4+/5 3/5 1-2/10 4/5 1/10 neck pain 4/5 0/10 neck pain Elbow Extension 4/5 2/5 4/10 pain 3+/5 3+/5 Supination 5/5 3/5 4/5 3+/5 Pronation 5/5 3/5 4/5 1/10 pain 3+/5 Wrist Extension 5/5 2/5 3/5 4/5 Wrist Flexion 5/5 3/5 3+/5 3+/5 Wrist ulnar deviation 4/5 3+/5 3+/5 4-/5 Wrist radial deviation 4/5 3/5 3/5 4-/5 HAND STRENGTH: Manual Muscle Testing (MMT) Right Left Left 01/13/17 Left 02/12/17 Left 02/26/17 Left 03/05/17 MMT MMT Opponens pollicis 5/5 3-/5 3+/5 5/5 3+/5 4/5 Flexor Pollicis Longus 5/5 3+/5 3+/5 3+/5 4/5 Lumbricals 1 and 2 5/5 3/5 4/10 4+/10 4+/5 5/5 Lumbricals 3 and 4 5/5 2/5 3+/5 4/10 3/5 3+/5 Adductor Pollicis 5/5 3-/5 3+/5 3/5 3+/5 Dorsal interossei 5/5 3-/5 3+/5 4/10 3+/5 4-/5 Palmar interossei 5/5 3-/5 3+/5 4/10 3/5 3+/5 Abductor pollicis longus 5/5 3-/5 3-/5 4/10 4/5 4/5 Abductor pollicis brevis 4/5 3-/5 3 4/10 4/5 Extensor pollicis longus 4/5 2/5 2/5 3+/5 3+/5 Extensor pollicis brevis 4/5 2/5 3/5 3+/5 3+/5 Extensor digitorum communis 5/5 3-/5 3/5 3+/5 Radially to 3 ulnarly 3+/5 Extensor indicis 4+/5 3-/5 3+/5 4-5/5 5/5 Extensor digiti minimi 5/5 3-/5 3/5 3/5 3+/5 Abductor digiti minimi 5/5 3/5 3/5 3/5 3/5 Strength: Plant Health Manager Testing with Dynamometer setting #2 Pinch Testing with Pinch Gauge Right Left 12/25/16 Left 01/08/17 Left 01/26/17 Left 01/29/17 Left 02/04/17 Left 02/12/17 Left 03/05/17 Plant Health Manager setting 2 69.4/66.2/63.7 20.7/16.8/16.6 29.0/29.2/25.9 16.3/11.1/11.5 7/10 pain back of arm 12.8/9.3/13.3 4/10 13.4/14.4/11.8 0/10 pain 8/10.3/7.3 11.5/10.4/11.8 Plant Health Manager Average 66.4 18 27.96 12.9 11.8 13.2 8.6 11.2 Plant Health Manager norms for age and gender 61.7 57.3 57.3 57.3 57.3 57.3 57.3 57.3 [place] 08/08/11 Average: 11 34 Average: 3.3 5.5/6/5.5 Average: 5.7 5 Average: 5 Average: 4.7 3/2.5/3 Average: 2.8 4./01/30 Average: 4.8 3 Pt .02/07/14 Average: 13.5 4//4 Average: 3.3 2/2/2 Average: 2 3//3 Average: 3 3/2/2 Average: 2.3 3/2/2 Average: 2.3 //5 Average: 3.7 Tip Averaged 4.6 0/1/0 Average: 0.3 09/28/.5 Average: 1.2 09/28/.5 Average: 1.5 2/2/2 Average: 2 09/28/ Average: 1.3 2/3/2 Average 2.3 Women Hand Plant Health Manager Strength in Pounds: Mean (SD) Age [...] 1366 mean and 1312 women, community based [place] population, healthy adults, [place] hand dynamometer); (Edward Sharp et al, 2008; n = 224; mean age = 75.4 (6.8); good health with normal hand functions; [place] dynamometer) Treatment Today: Reassessed ROM Reassessed UE strength via MMT, rebeamer strength, pinch strength Reassessed fine motor coordination Reassessed pain and function Reviewed home program for wrist/forearm strengthening with theraband, hand strengthening with theraputty/digiflex CLINICAL DECISION MAKING: Fely continues to demonstrate generalized UE weakness. UE strength reassessed today via manual muscle testing, use of hand held dynamometer, and pinch gauge. Weakness appearsto be most pronounced in musculature innervated by the ulnar nerve: flexor carpi ulnaris, dorsal inte rossei, palmar interossei, lumbricals 3 and 4, abductor digiti minimi, and adductor pollicis. Interestingly, there are several muscles innervated by the radial nerve that also remain weak after regularstrengthening in therapy and with home program completion. Weakness evident in the following muscles innervated by the radial nerve: triceps, supinator, extensor digitorum, extensor pollicis longus, extensor pollicis brevis, and extensor digiti minimi. In addition to weakness, Fely continues to experience paresthesias in digits 4 and 5 that do not improve or worsen with elbow/wrist positioning however are aggravated with shoulder and neck ROM. Fely has participated in a work site assessment in attempt to identify aggravating factors. Goals for improved rebeamer and pinch strength have been progressedthroughout therapy due to fluctuations in strength including regressions in hand strength over the past month. The cause for decreased strength is unclear. Fely Shaw has fair to good potential for gains with therapy with identified needs for skilled therapy for treatment of deficits noted during evaluation today, to maximize functional performance during daily activities. Custodial Goals (to be met by discharge): Date [...] peg test in </= 18seconds without any rebeamer slips Goal Status: Met Patient will demonstrate [...] at work. Goal Status: In progress PLAN: On hold from therapy until follow up with MD Patient to continue with home program completion in the interim Therapeutic exercises to increase functional mobility Splinting [...] [facility] Nahid Carl PsyD (TeleHealth) [facility] [address], [place] [address] (Wo rk) documented as of this encounter Visit Diagnoses Diagnosis Left-sided muscle weakness Muscle weakness (generalized) documented in this encounter Care Teams Sound Effects Supervisor Relationship Specialty Start Date End Date Susie López APRN PCP - General 05/21/15 06/30/19 documented as of this encounter
--- OUTSIDE RECORDS SUMMARY | 2022-07-25 10:51 | XMS_ITS | Encounter Summary ---
:1960 Author Organization [facility] [place] [address] Care Team Providers Name Role Phone ReneSusie [...] Date Type Department Care Team Description 03/23/2017 - Hospital Encounter 3 Jules Delvalle, Abel Cervica l disc 03/24/2017 [facility] MD Cortney disorder with [facility] MEDICAL radiculopathy [facility] mid-cervical region [facility] [place] [address] [phone] Social History Tobacco Use Types Packs/Day Years [...] Sign Reading Time Taken Comments Blood Pressure 131/72 03/24/2017 8:07 AM EDT Pulse 68 03/23/2017 12:00 PM EDT Temperature 37.1 ??C (98.8 ??F) 03/24/2017 8:07 AM EDT Respiratory Rate 16 03/24/2017 8:07 AM EDT Oxygen Saturation 96% 03/24/2017 8:07 AM EDT Inhaled Oxygen Concentration - - Weight 73.5 kg (162 lb) 03/23/2017 6:48 AM EDT Height 170.2 cm (5' 7) 03/23/2017 6:48 AM EDT Body Mass Index 25.37 03/23/2017 6:48 AM EDT documented in this encounter Discharge Summaries Sheila Brown PA - 03/23/2017 12:46 PM EDT Discharge Summary Patient Name: Fely Shaw Patient Age: 56 y.o. Language: Greek Race: White Ethnicity: Not nor Admit date: 03/23/2017 Discharge date and time: 03/24/2017 Attending Physician: No att. providers found Discharge Physician: No att. providers found Follow-up Recommendations for Providers: See discharge instructions for additional details. Future Appointments Date Time Provider Department Center 04[facility]2017 [facility] 04/15/2017 9:40 AM Abel Delvalle MD [facility] Inpatient Provider Contact Information: No att. providers found Spine: [phone]. After hours and weekends, call [facility] Field Map Technician, , and have the Orthopedic resident paged. [...] other. All questions were answered. Hospital Course: Fley Shaw was admitted for the above operation. Operative course was uneventful. On POD#1 she was allowed out of bed ad michael, with no bending or twisting. The patient was instructed to wear a soft collar for comfort only. These parameters were reinforced by physical therapy. The patient???s INVERTEBRATE PALEONTOLOGIST was discontinued on POD#1 and was transitioned [...] Updated Allergies/ADRs: Allergies Allergen Reactions ??? Allergen Hbm-Vwxuc-Tzssn Bee Anaphylaxis ??? Venom-Wasp Anaphylaxis ??? Ptoui-Riysw-Jlozg Hornet Anaphylaxis ??? Venom-Yellow Hornet Anaphylaxis ??? [...] 07/06/2014, 07/16/2015, 06/11/2016 ??? Influenza Vaccine (Novel) G8T6-02, Injectable 08/01/2009 ??? Influenza Vaccine w/Preservative, Split [...] them. 3. You should also take an aope-dza-knuftic stool softener or laxative, such as Yessica-colace [...] contact the Spine Center Prescription Line at [phone]. PRESCRIPTION RENEWAL REQUESTS CAN TAKE UP TO 3 DAYS TO FILL. YOU WILL BE REQUIRED TOPICK UP YOUR NARCOTIC REFILL PRESCRIPTION IN PERSON AT [facility] OR IT CAN BE MAILED TO YOUR [...] has completely healed. PLEASE CALL US AT [phone] TO SPEAK WITH A SPINE CENTER NURSE [...] Important Phone Numbers: Clinical issues, nurse questions: [phone] Medication renewals: [phone] Delvalle: [phone] Evenings after 5pm and weekends you may contact the Orthopaedic resident supervisor long goods: [phone], ask the hotbed transfer operator to page the Orthopaedic resident Follow Up Appointments: 1. You will have follow-up appointments at [facility] as indicated in the ???Future Appointments and Orders?? section of your discharge summary. If X-rays have been ordered for you prior to this appointmentyou will need to report to the Radiology department, desk 3T, 1 hour prior to your spine center appointment. Future Appointments Date Time Provider Department Center 04/15/2017 8:55 AM [facility] 6 [facility] 04/15/2017 9:40 AM Abel Delvalle MD [facility] Future Appointments and Orders Future Appointments Provider Department Dept Phone 04/15/2017 8:55 AM [facility] DX ROOM 6 [facility] Xray [phone] Please go to College Sports Assistant Area 3T ([place] Location). 04/15/2017 9:40 AM Abel Delvalle MD Spine Center [phone] Primary Care Provider: Susie López APRN [phone] Discharge References/Attachments None documented in this encounter [...] them. 3. You should also take an rnrs-nzj-rtbqwfz stool softener or laxative, such as Yessica-colace [...] contact the Spine Center Prescription Line at [phone]. PRESCRIPTION RENEWAL REQUESTS CAN TAKE UP TO 3 DAYS TO FILL. YOU WILL BE REQUIRED TOPICK UP YOUR NARCOTIC REFILL PRESCRIPTION IN PERSON AT [facility] OR IT CAN BE MAILED TO YOUR [...] has completely healed. PLEASE CALL US AT [phone] TO SPEAK WITH A SPINE CENTER NURSE [...] Important Phone Numbers: Clinical issues, nurse questions: [phone] Medication renewals: [phone] Delvalle: [phone] Evenings after 5pm and weekends you may contact the Orthopaedic resident supervisor long goods: [phone], ask the hotbed transfer operator to page the Orthopaedic resident Follow Up Appointments: 1. You will have follow-up appointments at [facility] as indicated in the ???Future Appointments and Orders?? section of your discharge summary. If X-rays have been ordered for you prior to this appointmentyou will need to report to the Radiology department, desk 3T, 1 hour prior to your spine center appointment. Future Appointments Date Time Provider Department Center 04/15/2017 8:55 AM [facility] 6 X[facility] 04/15/2017 9:40 AM Abel Delvalle MD [facility] documented in this encounter Medications at [...] Time Provider Department Center 04/15/2017 8:55 AM [facility] 6 [facility] 04/15/2017 9:40 AM Abel Delvalle MD [facility] IVANBOOGIE STERLING MD 03/24/2017 Associated attestation [...] LAT cervical spine. Abel Delvalle MD MS Drain Tile Machine Operator - Orthopedic Spine Surgery / Spine Center Scheduler Conveyor - Department of Orthopedic Surgery / Academics and Research Beck Operator - [facility] [employer] 03/24/2017 Nilda Lindquist RN - 03/23/2017 12:35 PM EDT Patient [facility] via transport from PACU s/p ACDF [...] control oxycodone and acetaminophen Ofelia Estrada MD 9346 Naya Jeronimo RN - 03/23/2017 10:51 AM [...] Pre-Operative H&P Update Fely Garcia Colin 1960 [id number] Patient seen in pre-op holding area today. [...] Information Primary Emergency Contact: Joshua Shaw Address: [address] [place], [place] [id number] [facility] Mobile Relation: Spouse Secondary Emergency Contact: tierra lipscomb [facility] Relation: [facility] History: not discussed Substance Use/Abuse: not discussed Other Pertinent/Service Specific Information: None Health/Prescription Coverage: Primary Insurance: Payor: [employer] MUTUAL WC / Plan: WC LIBERTY MUTUAL / Product Type: *No Product type* / Secondary Insurance: Prescription Coverage: see above Preferred Pharmacy: [facility] [place] [address] [place], [place] - [address] [place] [address] [place] [address] [place] [id number] [facility] [address] Other: None Primary Care Provider: Susie López APRN [phone] Patient/Caregiver Goals of Treatment: Safe discharge Potential [...] of care planning. VIJAYA LOJA RN Pager: [phone] Plan of Care - Sunshine Joaquin OT [...] Discharge: (none) Anticipated Discharge Disposition: home Pager: [phone] Sunshine Joaquin OT 03/24/2017 Occupational Therapy Rehabilitation [...] Outcome (s) achieved Date Met: 03/24/17 03/24/17 7568 Coping/Psychosocial Plan Of Care Reviewed With patient;spouse [...] assist; home today CHLOE GARCIA, PT Pager: [phone] Inpatient Physical Therapy Plan of Care - [...] senna-docusate 2 tablet Oral BID ??? multivitamin Artq-Tu-SM-Min 1 tablet Oral Daily ??? acetaminophen 1,000 [...] Outcome: Ongoing (Interventions Implemented as Appropriate) 03/23/17 8268 Coping/Psychosocial Plan Of Care Reviewed With patient;spouse [...] Delvalle MD - 03/23/2017 10:52 AM EDT [facility] Operative Note Patient Name: Fely Shaw : [id number] MR#: [id number] Case Date: 03/23/2017 Surgeon: Surgeon(s) and Role: [...] Crest Bone Graft Separate Incision Instrumentation: Globus Brandon plate PEEK cage DESCDRIPTION OF PROCEDURE: The [...] noted above. Anterior instrumentation C7-1: An anterior Brandon plate was placed down on the anterior [...] Operative Note Patient Name: Fely Shaw : [id number] MR#: [id number] Case Date: 03/23/2017 Surgeon: Surgeon(s) and Role: [...] Spine Center Nahid Carl PsyD (TeleHealth) [address] [facility] [address] [place], [place] [address] (Wo rk) documented as of this encounter Procedures Procedure Name Priority Date/Time Associated Diagnosis Comme nts ASSOCIATE DESIGNER SCAN 03/25/2017 12:00 Res ults for this [...] documented in this encounter Results SCAN DOC: ASSOCIATE DESIGNER (03/25/2017 12:00 AM EDT) Narrative 03/25/2017 12:00 AM EDT This result has an attachment that is no t available. Ordered by an unspecified provider. Scanning Provider MEDIA MGR SCAN EXT ORDR/RSLT (ABNORMAL) Differential, Automated (03/24/2017 4:00 AM EDT) [facility] Method Time Signature Neutrophils % 68.1 % [facility] Neutr Abs (ANC) 6.69 (H) 1.70 - [facility] 6.10 [facility] x10(3)/[facility] L LABORATORY Lymphocytes % 21.6 % [facility] Lymphocytes Abs 2.1 0.9 - 3.2 [facility] x10(3)/[facility] LABORATORY Monocytes % 9.6 % [facility] Monocyte Abs 0.9 0.3 - 0.9 [facility] x10(3)/[facility] LABORATORY Eosinophils % 0.2 % [facility] Eosinophils Abs 0.0 0.0 - 0.4 [facility] x10(3)/[facility] LABORATORY Basophils % 0.2 % [facility] Basophils Abs 0.0 0.0 - 0.1 [facility] x10(3)/[facility] LABORATORY Immature Gran % 0.30 % [facility] Comment: Immature granulocytes(IG's)percentage an d absolute count will include metamyelocytes, myelocytes, and promyelo cytes. Blood smears from CBCs yielding IG's will be scanned manually for concor dance. If this scan disagrees with the automated IG or if promyelocytes are not ed, a manual differential will be performed. Archana Gran Abs 0.03 0.00 - 0.04 x10(3)/[facility] MAR Y [facility] LABORATORY Specimen Anatomical Collection Method Collection Time Receive d Time (Source) Location / / Volume Laterality Blood specimen 03/24/2017 4:00 AM 017 4:21 (specimen) EDT AM EDT Resulting Agency Comment Spec In Lab Abel Delvalle MD HEMATOLOGY ORDERABLES Performing Organization Address City/State/[place] [address] (ABNORMAL) Hemogram (03/24/2017 4:00 AM EDT) P athologist Signature WBC 9.8 (H) 4.0 - 9.5 [facility] x10(3)/[facility] LABORATORY RBC 4.48 4.00 - [facility] 5.21 [facility] x10(6)/[facility] LABORATORY Hemoglobin 13.8 11.7 - [facility] 15.5 gm/dL [facility] LABORATORY Hematocrit 39.8 35.7 - [facility] 45.8 % [facility] LABOR[facility] MCV 88.8 82.6 - [facility] 94.4 [facility] LABORATORY MCH 30.8 27.1 - PEG NATALIE 32.0 pg [facility] MCHC 34.7 31.7 - [facility] 35.0 gm/dL [facility] Platelets 212 145 - 357 [facility] x10(3)/[facility] LABORATORY RDWSD 38.3 37.0 - [facility] 46.0 [facility] LABORATORY RDWCV 11.9 11.5 - [facility] NATALIE 14.1 % [facility] LABORATORY MPV 9.0 7.6 - 12.9 [facility] LABORATORY nRBC % Auto 0.0 % [facility] nRBC Abs Auto 0.000 0.000 - [facility] 0.000 [facility] x10(3)/[facility] LABORATORY Specimen Anatomical Collection Method Collection Time Receive d Time (Source) Location / / Volume Laterality Blood specimen 03/24/2017 4:00 AM 017 4:21 (specimen) EDT AM EDT Resulting Agency Comment Spec In Lab Aebl Delvalle MD HEMATOLOGY ORDERABLES Performing Organization Address City/State/[place] [address] (ABNORMAL) Basic Metabolic Panel (non-fasting) (03/24/2017 4:00 AM EDT) P athologist Signature Glucose Lvl 109 65 - 199 [facility] mg/dL [facility] Comment: Diabetes: >=200 mg/dL plus symp toms BUN 10 8 - 18 mg/dL [facility] LAB[facility] Creatinine 0.65 (L) 0.70 - 1.20 mg/dL [facility] Comment: Please note that the pediatric reference intervals supplied above were not validated at [facility]. Results from pediatri c patients should be interpreted in conjunction to the patient's age, height and muscle mass. Sodium 140 135 - 145 mmol/L [facility] Potassium 4.2 3.5 - 5.0 mmol/L [facility] Comment: Please note: ??Patients with WBC >100,00 0 may have falsely elevated Potassium levels. ??For accurate Potassium quantif ication in these patients send serum separator tube (gold top) for subsequent determinations. ??Contact the Clinical Chemistry Laboratory if there are any qu estions. Chloride 100 98 - 107 mmol/L [facility] CO2 26 22 - 31 mmol/L [facility] Anion Gap 14 5 - 15 mmol/L [facility] Calcium 9.2 8.5 - 10.5 mg/dL [facility] Estimated GFR >60 >=60 [facility] Comment: This estimated GFR (eGFR) [...] the following links into your internet browser. http://KoolSpan/DHnkdep [email or web address] Specimen Anatomical Collection Method Collection Time Receive d Time (Source) Location / / Volume Laterality Blood specimen 03/24/2017 4:00 AM 017 4:21 (specimen) EDT AM EDT Resulting Agency Comment Spec In Lab Abel Delvalle MD CHEMISTRY ORDERABLES Performing Organization Address City/State/[place] [address] XR Cervical Spine 2 [...] C6-7 wit hout complication. Abel Delvalle MD [facility] DX ORDERABLES XR Cervical Spine 1 View [...] at level of C7-T1. Abel Delvalle MD [facility] DX ORDERABLES XR Cervical Spine 1 View [...] Given 03/23/2017 2:25 PM EDT 1,000 mg ceFAZolin (ANCEF) 1g in dextrose 5% Given [...] Given 03/23/2017 2:25 PM EDT 600 mg HYDROmorphone (DILAUDID) syringe 0.2-0.4 mg Given 03/23/2017 [...] of Surgery (Day of Procedure), Routine multivitamin Qlxi-Ig-FY-Min (THERAPEUTIC-M) Given 02/27 9:22 AM EDT 1 [...] Until Thu03/24/17 at 1503, Recovery (Recovery-Hospital Unit) documented in this encounter Active and Recently Administered Medications Times are shown in EDT. Scheduled Medication Order 03/22/2017 03/23/2017 03/24/2017 acetaminophen (TYLENOL) tablet 1,000 mg 1425 (Given - Provider: Nilda Lindquist, ZAFAR)2202 (Given - Provider: Paxton Cancino RN) 0528 [...] OR at 0730)1835 (Given - Provider: Nilda Lindquist, ZAFAR) 0337 (Given - Provider: Paxton Cancino RN) [...] Prophylaxis gabapentin (NEURONTIN) capsule 600 mg 14 25 (Given - Provider: Nilda Lindquist RN)2200 (Given - Provider: Paxton Cancino RN) 09 (Given - Provider: Nilda Lindquist RN) 600 mg, Oral, 3 TIMES DAILY, First dose on Thu03/23/17 at 1500, Until Discontinued, Recovery (Recovery-Hospital Unit), Routine multivitamin Gzje-Wp-GA-Min (THERAPEUTIC-M) 27-0.4 mg tablet 1 tablet 1425 (Given - Provider: Nilda Lindquist RN) 0922 (Given - Provider: Nilda Lindquist, ZAFAR) 1 tablet, Oral, DAILY, First dose on Thu03/23/17 at 1315, Until Discontinued, Recovery (Recovery-Hospital Unit), Routine polyethylene glycol (MIRALAX) packet 17 g 1315 (Not Given - Provider: Nilda Lindquist RN - Reason: Patient/family refused)2044 (Given - Provider: Paxton Cancino RN) 0900 (Not Given - Provider: Nilda Lindquist RN - Reason: Patient/family refused) 17 g, Oral, 2 TIMES DAILY, First dose on Thu03/23/17 at 1315, Until Discontinued, Recovery (Recovery-Hospital Unit), Routine senna-docusate (PERICOLACE) 8.6-50 mg per tablet 2 tablet 1315 (Not Given - Provider: Nilda Lindquist, ZAFAR - Reason: Patient/family refused)2044 (Given - Provider: Paxton Cancino, RN) 0900 (Not Given - Provider: Nilda Lindquist RN - Reason: Patient/family refused) 2 tablet, Oral, 2 TIMES DAILY, First dos e on Thu03/23/17 at 1315, Until Discontinued, Recovery (Recovery-Hospital Unit), Routine sodium chloride 0.9 % flush 5 mL 1428 (G iven - Provider: Nilda Lindquist, RN)2048 (Given - Provider: Paxton Cancino, ZAFAR) 0926 (Given - Provider: Nilda Lindquist RN) [...] 1046 (New Bag - Pr ovider: Naya Jeronimo, RN) 1,000 mL, at 100 mL/hr, Intravenous, [...] immediate release tablet 10 mg(Linked Group 1) 1424 (See Alternative - Provider: Nilda Lindquist RN)1833 (See Alternative - Provider: Nilda Lindquist RN)2256 (Given - Provider: Paxton Cancino RN) 0528 [...] immediate release tablet 15 mg(Linked Group 1) 1424 (See Alternative - Provider: Nilda Lindquist RN)1833 (See Alternative - Provider: Nilda Lindquist RN)2256 (See Alternative - Provider: Paxton Cancino RN) 0528 (See Alternative - Provider: Parker [...] immediate release tablet 5 mg(Linked Group 1) 1424 (Given - Provider: Nilda Lindquist RN)1833 (Given - Provider: Nilda Lindquist RN)2256 (See Alternative - Provider: Paxton Cancino RN) 0528 (Given - Provider: Paxton Cancino RN)1000 (Given - Provider: Nilda Lindquist RN) 5 mg, Oral, EVERY 4 HOURS PRN, Starting Mon /26/17 at 1028, Until Thu03/24/17 at 1503, Pain, [...] If pain not relieved, call provider.
Recovery (Recovery- spital Unit), Routine Or oxyCODONE (ROXICODONE) immediate release tablet 15 mgJump to med 15 mg, Oral, EVERY 4 HOURS PRN, Starting Thu03/23/17 at 1028, Until Thu03/24/17 at 1503, Pain, severe pain (7-10)
For severe pain (7-10). Do not exceed 15 mg in 4 hours. If pain not relieved, c all provider.
Recovery (Recovery-Hosp ital Unit), Routine documented in this encounter Care Teams Senior Controls Engineer Relationship Specialty Start Date End Date Susie López APRN PCP - General 05/21/15 06/30/19 documented as of this encounter
--- OUTSIDE RECORDS SUMMARY | 2022-07-25 10:51 | XMS_ITS | Encounter Summary ---
:1960 Author Organization [facility] [place] [address] Care Team Providers Name Role Phone Susie López APRN Primary Care Provider Encounter Details Date Type Department Care Team Description 04/15/2017 Hospital Encounter XRay at [facility] Abel Delvalle Cervical disc [address] [place] [address] Dr Cotrney MD disorder with [facility] [place] [phone] CENTER mid-cervical region [phone] [place] [address] Social History Tobacco Use Types Packs/Day Years [...] Spine Center Nahid Carl PsyD (TeleHealth) [address] [facility] [address] [place], [place] [address] (Wo rk) documented as of this encounter Procedures Procedure Name Priority Date/Time Associated Diagnosis Comme nts XR CERVICAL SPINE Routine 04/15/2017 9:16 AM Cervical disc dis order Results for this 2 OR 3 VIEWS EDT with radiculopathy of proced ure are in mid-cervical region the resu lts section. documented in this encounter Results XR [...] AM Abel Delvalle MD IMG DX ORDERABLES documented in this encounter Visit Diagnoses Diagnosis Cervical disc disorder with radiculopath y of mid-cervical region Brachial neuritis or radiculitis nos documented in this encounter Care Teams Saturator Operator Relationship Specialty Start Date End Date Susie López APRN PCP - General 05/21/15 06/30/19 documented as of this encounter
--- OUTSIDE RECORDS SUMMARY | 2022-07-25 10:51 | XMS_ITS | Encounter Summary ---
:1960 Author Organization [facility] [place] [address] Care Team Providers Name Role Phone Susie óLpez JE Primary Care Provider Reason for Visit Reason Onset Date Comments Other 04/28/2017 Encounter Details Date Type Department Care Team Description 04/28/2017 Telephone Spine Center at [facility] non Dawn Vee, [place] [address] Social History Tobacco Use Types Packs/Day [...] this encounter Miscellaneous Notes Telephone Encounter - Dawn Vee RN - 04/28/2017 5:30 PM EDT Received call from patient requesting an increase to a 9 hour work day from her current 8 hour work day. She will continue with her current lifting, pulling , pushing restrictions. Above discussed with Dr. Delvalle, he agreed and updated work note was completed. Patient was contacted and informed, she will access note via her [facility] account. documented in this encounter Plan of Treatment Upcoming Encounters Date Type Specialty Care Team Description 08/07/2022 TH Visit [facility] Nahid Carl PsyD (TeleHealth) [facility] [address] [place], [place] [address] (Wo rk) documented as of this encounter Visit Diagnoses Not on filedocumented in this encounter Care Teams Relations Coordinator Relationship Specialty Start Date End Date Susie López APRN PCP - General 05/21/15 06/30/19 documented as of this encounter
--- OUTSIDE RECORDS SUMMARY | 2022-07-25 10:51 | XMS_ITS | Encounter Summary ---
:1960 Author Organization [facility] [place] [address] Care Team Providers Name Role Phone Susie López JE Primary Care Provider Encounter Details Date Type Department Care Team Description 03/13/2017 Clinical [place] [address] Social History Tobacco Use Types Packs/Day [...] documented as of this encounter Progress Notes Aundrea Tuttle, RN - 03/13/2017 2:40 PM EDT PAT questionnaire reviewed with patient while in Pre Admission testing. Previous anesthesia with no complications. Motion sickness related to car travel, has become less often as an adult. Pre-operative instruction booklet reviewed. Patient verbalizes a good understanding of all information reviewed. PLAN: Testing: Blood work, T&S Special medication instructions: Has stopped Meloxicam. Procedure date: March 23, [address] Delvalle documented in this encounter Plan of Treatment Upcoming Encounters Date Type Specialty Care Team Description 08/07/2022 TH Visit [facility] and Spine Center Nahid Carl PsyD (TeleHealth) [facility] [address] [place], [place] [address] (Wo rk) documented as of this encounter Visit Diagnoses Not on filedocumented in this encounter Care Teams Fleet Coordinator Relationship Specialty Start Date End Date Susie López APRN PCP - General 05/21/15 06/30/19 documented as of this encounter
--- OUTSIDE RECORDS SUMMARY | 2022-07-25 10:51 | XMS_ITS | Encounter Summary ---
:1960 Author Organization [facility] [place] [address] Care Team Providers Name Role Phone ReneSusie fleming JE Primary Care Provider Encounter Details Date Type Department Care Team Description 06/30/2017 Notes Only [facility] non Dawn Vee, [place] [address] Social History Tobacco Use Types Packs/Day [...] encounter Progress Notes Dawn Vee RN - 06/30/2017 3:29 PM EDT Received second request for medical records for 06/17/17 to present from [facility], this was also faxed to Medical Records release of Information. documented in this encounter Plan of Treatment Upcoming Encounters Date Type Specialty Care Team Description 08/07/2022 [facility] Nahid Carl PsyD (TeleHealth) [facility] [address] [place], [place] [address] (Wo rk) documented as of this encounter Visit Diagnoses Not on filedocumented in this encounter Care Teams Form Setter Steel Pan Forms Relationship Specialty Start Date End Date Susie López APRN PCP - General 05/21/15 06/30/19 documented as of this encounter
--- OUTSIDE RECORDS SUMMARY | 2022-07-25 10:52 | XMS_ITS | Encounter Summary ---
:1960 Author Organization [facility] [place] [address] Care Team Providers Name Role Phone ReneSusie fleming JE Primary Care Provider Encounter Details Date Type Department Care Team Description 01/08/2017 Office Visit Occupational Therapy Carlota Rahman Le ft-sided muscle at [facility] OT weakness [address] [place] [address] PHYSICAL MEDICINE & [place] [address] Social History Tobacco Use Types Packs/Day Years [...] encounter Progress Notes Carlota Rahman, OT - 01/08/2017 9:00 AM EDT OCCUPATIONAL THERAPY PROGRESS NOTE Referral [...] History and/or Co-morbidities: 1. 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 Patient previously worked [...] without difficulty 10/10) Activity At Evaluation 01/08/17 1.) Donning shirts overhead 3 9 2.) Washing hair 5 5 3.) sewing 7 6 4.) Cooking; handling heavy pots and pans 3 4 5.) opening containers 5 5 6.) lifting/sliding/pushing/pulling at work >/= 50 1 1 Average Score: 4 5.8 Disabilities of the Arm, Shoulder, and Hand [...] your head Severe difficulty 7. 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 Manage transportation needs [...] the visual analog scale) At Rest: 0/10 biceps With Activity: 5/10 about scapular, 2-8/10 pain about biceps, 4/10 pain about base of left thumb Relieving factors: medication including tylenol and neurotin, heating pads Special Testing Completed: Positive Froment's sign left Negative Froments sign on the right Negative Wartenberg's sign bilaterally 9 Hole Peg Test RIGHT LEFT LEFT 01/08/17 Trial #1 18 seconds 18 seconds with 3 reference library assistant slips/ dropped pegs 18 seconds with 1 reference library assistant slip Mean for age/gender 17.86 seconds 19.48 seconds 19.48 seconds Mean and [...] motion with goniometer Right Left Left 01/08/17 Shoulder Extension/Flexion 58/155 40/98 6-7/10 pain with ulnar nerve symptoms Shoulder Abduction 150 46 Shoulder Internal/External Rot. WFL 62 external rotation 6 inches from inferior angle of contralateral scapula 60 external rotation Elbow Extension/Flexion 0/151 -3/148 Wrist Extension/Flexion 70/70 45/70 65/70 Ulnar/Radial Deviation 40/30 30/30 Pronation/Supination 90/90 90/90 Measured in degrees of active motion with goniometer and/or distance measured from finger tip to thedistal palmar crease (DPC) Digits Right: DPC Thumb DPC Index Finger DPC Middle Finger DPC Ring Finger DPC Small Finger DPC Digits Left: DPC Thumb DPC Index Finger DPC Middle Finger DPC Ring Finger DPC Small Finger DPC STRENGTH: Manual Muscle Testing (MMT) Right Left MMT RIGHT MMT Scapular Elevation 5/5 3/5 Shoulder Flexion 4/5 2/5 Shoulder Extension 4/5 2/5 Shoulder Abduction 4/5 2/5 Shoulder Adduction 5/5 2/5 Shoulder External Rotation 4-/5 2/5 Shoulder Internal Rotation 4-/5 2/5 Elbow Flexion 4+/5 3/5 1-2/10 Elbow Extension 4/5 2/5 4/10 pain Supination 5/5 3/5 Pronation 5/5 3/5 Wrist Extension 5/5 2/5 Wrist Flexion 5/5 3/5 Wrist ulnar deviation 4/5 3+/5 Wrist radial deviation 4/5 3/5 HAND STRENGTH: Manual Muscle Testing (MMT) Right Left MMT MMT Opponens pollicis 5/5 3-/5 Flexor Pollicis Longus 5/5 3+/5 Lumbricals 1 and 2 5/5 3/5 Lumbricals 3 and 4 5/5 2/5 Adductor Pollicis 5/5 3-/5 Dorsal interossei 5/5 3-/5 Palmar interossei 5/5 3-/5 Abductor pollicis longus 5/5 3-/5 Abductor pollicis brevis 4/5 3-/5 Extensor pollicis longus 4/5 2/5 Extensor pollicis brevis 4/5 2/5 Extensor digitorum communis 5/5 3-/5 Extensor indicis 4+/5 3-/5 Extensor digiti minimi 5/5 3-/5 Abductor digiti minimi 5/5 3/10 Strength: Mechanical Unit Repairer Testing with Dynamometer setting #2 Pinch Testing with Pinch Gauge Right Left 12/25/16 Left 01/08/17 Mechanical Unit Repairer setting 2 69.4/66.2/63.7 20.7/16.8/16.6 29.0/29.2/25.9 Mechanical Unit Repairer Average 66.4 18 27.96 Mechanical Unit Repairer norms for age and gender 61.7 57.3 57.3 [place] 08/08/11 Average: 11 33/4 Average: 3.3 5.5/6/5.5 Average: 5.7 3 Pt 13./ Average: 13.5 Average: 3.3 Average: 2 Tip Averaged 4.6 0/1/0 Average: 0.3 09/28/.5 Average: 1.2 Women Hand Mechanical Unit Repairer Strength in Pounds: Mean (SD) Age Right [...] normal hand functions; Tanmay dynamometer) Treatment Today: Fabricated forearm-based thumb spica for night time wear due to CMC joint pain. Patient has a comfort cool soft, thumb support for daytime wear Therapeutic exercise Position Equipment Level of assistance Resistance Repetitions/Time Response Reassessed reference library assistant strength, lateral pinch, palmar pinch and tip pinch strength Supported short sit Hand held dynamometer, pinch gauge Direct verbal cues for instruction 3 trials completed for each measure Patient demonstrated significantly improved reference library assistant and pinch strength, meeting short term goals Reassessed fine motor coordination Supported short sit 9 hole peg test Direct verbal cues for instruction Patient demonstrated fewer reference library assistant slips compared to initial testing UE strengthening: wrist extension Supported short sit; forearm in neutral,forearm pronated Foam wedge Verbal and visual cues for correct compleiton Against gravity 2 sets of 10 repetitions Composite extension stretching completed prior to exercise completion to relieve patients reports of volar wrist pain Patient rated exercise as medium effort with reports of pain about dorsal wrist with repetition Pain relieved with kinesiotape application: Kinesiotape applied today using a I band for functional correction of the left wrist. Patient was instructed in removal techniques in case of skin irritation, increased pain, or general discomfort. Patient reported 0/10 pain with active wrist extension after taping Fine motor coordination with vision occluded Emphasis on finger to palm and palm to finger translatio Supported short sit [place]: medium sized nuts and bolts 10 repetitions Patient demonstrated 1 reference library assistant slip when removing nuts and 2 reference library assistant slips whenreapply nuts to bolts during in hand manipulation Pinch strengthening with fine motor coordination component Supported short sit Theraputty, small Quinton-sized stones Cuing to maintain healthy joint positioning throughout activity Patient used palmar pinch, tip pinch, and lateral [place]chaca pinch to remove 5 small stones from putty Therapeutic Activity Position Equipment/Environment Level of assistance Repetitions/ Time Response Patient re-educated on role/purpose of ergonomics and work station redesign assessment to ensure proper posture and positioning Supported short sit Patient verbalized understanding CLINICAL DECISION MAKING: Fely has demonstrated significant gains this interim, meeting 4 short term goals. Gains made in improved ROM, strength, coordination, and function. Significantly improved active wrist extension noted today, meeting short term goal. Significantly improved reference library assistant strength measured via hand held dynamometer noted today, meeting short term goal. Additional gains to report in significantly improved lateral pinch strength and tip pinch strength. These goals will be modified and progressed to facilitate return to functional age- based means. Fely Shaw has fair to good potentialfor gains with therapy with identified needs for skilled therapy for treatment of deficits noted during evaluation today, to maximize functional performance during daily activities. 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 Therapeutic exercises to increase functional mobility [...] TH Visit [facility] Nahid Cral PsyD (TeleHealth) [facility] [address] [place], [place] [address] (Wo rk) documented as of this encounter Visit Diagnoses Diagnosis Left-sided muscle weakness Muscle weakness (generalized) documented in this encounter Care Teams Transitional Living Specialist Relationship Specialty Start Date End Date Susie López APRN PCP - General 05/21/15 06/30/19 documented as of this encounter
--- OUTSIDE RECORDS SUMMARY | 2022-07-25 10:52 | XMS_ITS | Encounter Summary ---
:1960 Author Organization [facility] [address] Care Team Providers Name Role Phone Susie López APRN Primary Care Provider Encounter Details Date Type Department Care Team Description 12/16/2016 External Results [place] [facility] [place] Woods MD [facility] Nahid [facility] [place] [address] NEUROLOGY DEPT. [phone] [place], [place] [address] (Wo rk) Social History Tobacco [...] PsyD (TeleHealth) [facility] [address] [place], [place] [address] (Wo rk) documented as of this encounter Procedures Procedure Name Priority Date/Time Associated Diagnosis Comme nts EMG SCAN Routine 12/16/2016 documented in this encounter Results Scan Doc: EMG (12/16/2016) Narrative This result has an attachment that is no t available. Delta Woods MD MEDIA MGR SCAN EXT ORDR/RSLT documented in this encounter Visit Diagnoses Not on filedocumented in this encounter Care Teams River Boat Captain Relationship Specialty Start Date End Date Susie López APRN PCP - General 05/21/15 06/30/19 documented as of this encounter
--- OUTSIDE RECORDS SUMMARY | 2022-07-25 10:52 | XMS_ITS | Encounter Summary ---
:1960 Author Organization [facility] [place] [address] Care Team Providers Name Role Phone Nicolas Lópezelle JE Primary Care Provider Reason for Referral Diagnostic Test (Routine) - Closed Specialty Diagnoses / Procedures Referred By Contact Refer red To Contact Radiology Diagnoses Acute pain of left shoulder Dana Wheatley APRN [facility] Rad Mri Procedures MRI Shoulder wo Contrast Left (Generic) [facility] [place] [address] [place] [address] Referral ID Status Reason Start Date Expiration Date Visits V isits Requested Authorized [id number] Closed Specialty 10/08/2016 10/08/2017 1 1 Service Requested Reason for Visit Reason Comments Left Shoulder Pain Consultation (Routine) - Closed Specialty Diagnoses / Procedures Referred By Contact Refer red To Contact Orthopaedics Diagnoses Acute pain of left shoulder Sumaya Singh APRN [facility] [place] [address] [place] [address] Referral ID Status Reason Start Date Expiration Date Visits V isits Requested Authorized [id number] Closed Consult, 10/01/2016 10/01/2017 1 1 Test & Treat Encounter Details Date Type Department Care Team Description 10/08/2016 Office Visit Orthopaedics at [employer] [facility] Dana Wheatley, Acute pain of left shoulder (Primary Dx); [facility] [employer] Biceps rupture, proximal, left, initial encounter; [facility] Rotator cuff strain[place] [address] CENTER [phone] ORTHOPAEDIC [place] [address] Social History Tobacco Use Types Packs/Day [...] Sign Reading Time Taken Comments Blood Pressure 141/63 10/08/2016 3:12 PM EST Pulse 91 10/08/2016 3:12 PM EST Temperature - - Respiratory Rate - - Oxygen Saturation - - Inhaled Oxygen Concentration - - Weight 71.2 kg (157 lb) 10/08/2016 3:12 PM EST Height 172.7 cm (5' 8) 10/08/2016 3:12 PM EST Body Mass Index 23.87 10/08/2016 3:12 PM EST documented in this encounter Progress Notes Dana Wheatley APRN - 10/08/2016 3:00 PM EST This patient was seen in consultation today at the request of occupational medicine Sumaya Singh APRN Reason for Consultation: left shoulder pain. 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 year-old female who visits the Orthopaedic clinic alone today with a history of left shoulder pain. Mechanism of injury: While walking to work in the [employer] parking lot ~ 6 weeks ago, she inadvertently slipped on ice resulting in a mechanical fall on ice with an outstretched hand with an external rotation and abduction motion. She felt immediate pain and deformity in the anterior aspect of her shoulder. No head injury reported. NO otherinjuries reports. She did present to the Occupational Health Clinic and was diagnosed with a proximal biceps strain and physical therapy was recommended and RTW with modifications. [facility] [place] focusing mostly on ROM and PRE exercises. She feels that her range of motion has improved yet the deformity of the anterior aspect of the shoulder and mild to moderate pain persists. She does report significant bruising of the anterior shoulder that is fading. The pain has been present for about 6 weeks and is exacerbated by pushing and pulling activity with some weakness reported. She does report a deformity of the proximal biceps region. She has been takingMobic for the pain and has undergone PT to address this pain. No neck pain or radiculopathy. No numbness or tingling of the LEFT upper extremity. No history of LEFT shoulder fracture, Dislocation, or surgery. She is quite active with paragliding and skiing and does depend on her shoulder strength for these activities. She feels that she has not regained full strength in regards to sports since her injury. In fact, she has had to cancel a paragliding trip due to her shoulder injury. She is reportedlyhealthy otherwise and here for definitive management. Past Medical History: Active Ambulatory Problems Diagnosis Date Noted ??? 12/11/10 ARTHROSCOPY KNEE,MENISCECTOMY SINGLE WITH SHAVING OSC /LEFT/LATERAL 12/31/2010 ??? Left knee pain 01/10/2011 ??? Finger sprain 02/26/2012 ??? Lumbar strain 05/07/2012 ??? Lower back pain 05/07/2012 ??? Lumbosacral spondylosis without myelopathy 06/23/2014 ??? Acute pain of left shoulder 08/26/2016 Resolved Ambulatory Problems Diagnosis Date Noted ??? No Resolved Ambulatory Problems No Additional Past Medical History Past Surgical History Past Surgical History Procedure Laterality Date ??? Laminotomy Left 2013 [facility] ??? 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 History Smoking Status ??? Former Smoker ??? Types: Cigarettes ??? Quit date: 08/12/2009 Smokeless Tobacco ??? Never Used History Alcohol Use ??? Yes Comment: Occasional Family History - her family history is pertinent for Family History Problem Relation Age of Onset ??? Hypertension Mother ??? Hyperlipidemia Mother ??? Osteoporosis Mother ??? Lung Cancer Father 2011 ??? Breast Cancer Sister 36 ??? Type 2 Diabetes Neg Hx . Review of Systems: A thirteen-system review was negative Denies fever, chills, nausea, vomiting, vision change, shortness of breath, chest pain, vision changes, headaches, bowel or bladder problem, ear, nose, sinus problem, neuro or psychiatric, or endocrine disorder not addressed above. . Physical Examination: Vitals: BP Readings from Last 1 Encounters: 10/08/16 141/63 Pulse Readings from Last 1 Encounters: 10/08/16 91 Height: 172.7 cm (5' 8) Weight - Scale: 71.2 kg (157 lb) Body mass index is 23.87 kg/(m^2). Constitutional- she is alert and oriented to person, place, time, and situation. she is in no apparent distress. Ears, nose, mouth, throat - her head is Normocephalic, without obvious abnormality, atraumatic. Integumentary - in general her skin shows normal coloration and turgor, no rashes, no suspicious skin lesions noted. Psychiatric - her affect was Appropriate. Musculoskeletal examination: Posture is symmetric. Motor exam shows 5/5 strength in lateral deltoid muscles of the upper extremity. Full light touch sensation of the lateral deltoid. ?? Shoulder motion Active Passive Strength ?? Abduction 110 120 4+/5 ?? Flexion 110 150 4+/5 + painful arc + cog wheeling noted ?? Internal rotation L4 L5 same 5/5 ?? External rotation 60 60 4+/5 ?? Special Tests ?? Rotator cuff tests: ?? Grove' test - Positive ?? Neer's test - Positive ?? Empty can test - Positive ?? Jules's test - N/A ?? Labrum tests ?? O'georgi's test - Positive ?? Biceps tests + Dany sign with probable biceps tendon rupture. Faint resolving ecchymosis of theproximal biceps region. ?? Speed's test - negative ?? Yergason's test - negative ?? AC joint tests ?? AC joint tenderness - Negative ?? Cross-arm test - Negative Imaging Studies: Plain radiographs - mild degenerative changes of the GH and AC joint. No fracture, dislocation, lytic or osseous lesions MRI - none CT - none Impression & Plan: 56 y.o. year-old female with based upon history, physical exam, and imaging studies appears to have a LEFT shoulder work related injury ~ 6 weeks ago clinical exam is consistent with a proximal biceps tendon rupture and concerning for a small RTC tear. I reviewed my findings in the office today with both x- rays and clinical exam. Additional diagnostic studies which will be undertaken include LEFT shoulder MRI scan. Given Fely's livelihood and sporting activity, we will have her see Dr. Singh in follow up as she may be a candidate for a proximal biceps tendon repair to address her strength deficits.I will call her with the MRI results as well. In the interim, she can use the Mobic that is helpful her for pain and Cool packs and acetaminophen prn for pain no greater than 3 grams per day for breakthrough pain. Ok to continue to work with modifications with no lifting greater than 5 pounds, avoiding overuse of the left shoulder. Taking breaks as needed. [employer] [facility] RTW forms completed. Pt agrees, questions solicited/answered, will return as scheduled and as needed for concerns or questions. Pt understands they may also call us prn for above. Follow up plan: MRI scan LEFT shoulder with Dr. Singh team clinic. No additional x-rays needed. Please copy this note to: Sumaya Singh APRN [facility]IC[facility] [place] [address] documented in this encounter Plan of Treatment Upcoming Encounters Date Type Specialty Care Team Description 08/07/2022 TH Visit [facility] Nahid Carl PsyD (TeleHealth) [facility] [place] [address] (Wo rk) documented as of this encounter Results MRI Shoulder wo Contrast Left (Generic) (10/08/2016 7:23 PM EST) Anatomical Region Laterality Modality Shoulder Left Magnetic Resonance Specimen (Source) Anatomical Location Collection Method / Collectio n Time Received Time / Laterality Volume Impressions 10/09/2016 10:23 AM EST 1. ??Nonvisualization of the intra-articular long head of the biceps tendon, compatible with a retracted full-thickne ss proximal biceps tear. 2. ??Marked tendinosis of the supraspina tus tendon and, to a lesser extent, the infraspinatus and subscapularis tendons. A focal high-grade partial-thickness articular-surface tear of the anterior s upraspinatus tendon is suggested, but no full-thickness rotator cuff tendon tear seen. No rotator cuff tendon retraction or muscle atrophy. Moderate subacromial bursal fluid could reflect bursitis versus an occult focal full-thickness ro tator cuff perforation without associated retraction. 3. ??Glenohumeral joint osteoarthropathy , characterized by posterior labral fraying and marginal osteophytes. Narrative 10/09/2016 10:23 AM EST EXAMINATION: MRI SHOULDER WO CONTRAST LEFT (GENERIC) CLINICAL HISTORY: LEFT shoulder injury ( mechanical fall on an outstretched hand) on 08/26/2016 with pain and deformity an d clinical exam concerning for a proximal biceps tendon rupture and possi ble rotator cuff tear. TECHNIQUE: MRI of the left shoulder was performed without intravenous contrast. COMPARISON: Attention is also directed t o the left shoulder radiographs dated 10/03/2016. FINDINGS: Glenohumeral joint: There is glenohumera l joint osteoarthropathy, characterized by small marginal osteophytes arising fr om the anterior, posterior, and medial aspects of the humeral head as well as t he inferior aspect of the glenoid. No focal cartilage defect is discerned. The re is no fracture or bone marrow edema. Glenohumeral joint alignment is normal. ??There is no glenohumeral joint effusion. Acromioclavicular joint: There is mild d egenerative hypertrophy of the acromioclavicular joint. The acromion breen s a curved configuration. Rotator cuff and bursae: There is marked tendinosis of the supraspinatus tendon and, to a lesser extent, the infraspinat us and subscapularis tendons. ??A focal high-grade partial-thickness articular-s urface tear of the anterior supraspinatus tendon is questioned on im age 15 of series 4 image 15 and series 8 image 19, but no full-thickness rotator cuff tendon tear is seen. There is no rotator cuff tendon retraction. There is no muscle atrophy. Small degenerative cysts are noted in the greater tuberosit y middle facet. There is moderate subacromial/subdeltoid bursal fluid. The teres minor tendon is normal. Biceps tendon and glenoid labrum: The in tra-articular long head of the biceps tendon is not visualized on any sequence , compatible with a retracted full-thickness proximal biceps tear. The re is marked degenerative fraying of the posterosuperior labrum. Procedure Note Macy Verma MD - 10/09/2016Formatting o f this note might be different from the original. EXAMINATION: MRI SHOULDER WO CONTRAST KO FT (GENERIC) CLINICAL HISTORY: LEFT shoulder injury ( mechanical fall on an outstretched hand) on 08/26/2016 with pain and deformity an d clinical exam concerning for a proximal biceps tendon rupture and possi ble rotator cuff tear. TECHNIQUE: MRI of the left shoulder was performed without intravenous contrast. COMPARISON: Attention is also directed t o the left shoulder radiographs dated 10/03/2016. FINDINGS: Glenohumeral joint: There is glenohumera l joint osteoarthropathy, characterized by small marginal osteophytes arising fr om the anterior, posterior, and medial aspects of the humeral head as well as t he inferior aspect of the glenoid. No focal cartilage defect is discerned. The re is no fracture or bone marrow edema. Glenohumeral joint alignment is normal. There is no glenohumeral joint effusion. Acromioclavicular joint: There is mild d egenerative hypertrophy of the acromioclavicular joint. The acromion breen s a curved configuration. Rotator cuff and bursae: There is marked tendinosis of the supraspinatus tendon and, to a lesser extent, the infraspinat us and subscapularis tendons. A focal high-grade partial-thickness articular-s urface tear of the anterior supraspinatus tendon is questioned on im age 15 of series 4 image 15 and series 8 image 19, but no full-thickness rotator cuff tendon tear is seen. There is no rotator cuff tendon retraction. There is no muscle atrophy. Small degenerative cysts are noted in the greater tuberosit y middle facet. There is moderate subacromial/subdeltoid bursal fluid. The teres minor tendon is normal. Biceps tendon and glenoid labrum: The in tra-articular long head of the biceps tendon is not visualized on any sequence , compatible with a retracted full-thickness proximal biceps tear. The re is marked degenerative fraying of the posterosuperior labrum. IMPRESSION 1. Nonvisualization of the intra-articul ar long head of the biceps tendon, compatible with a retracted full-thickne ss proximal biceps tear. 2. Marked tendinosis of the supraspinatu s tendon and, to a lesser extent, the infraspinatus and subscapularis tendons. A focal high-grade partial-thickness articular-surface tear of the anterior s upraspinatus tendon is suggested, but no full-thickness rotator cuff tendon tear seen. No rotator cuff tendon retraction or muscle atrophy. Moderate subacromial bursal fluid could reflect bursitis versus an occult focal full-thickness ro tator cuff perforation without associated retraction. 3. Glenohumeral joint osteoarthropathy, characterized by posterior labral fraying and marginal osteophytes. Kam Singh MD [facility] MRI ORDERABLES documented in this encounter Visit Diagnoses Diagnosis Acute pain of left shoulder - Primary Biceps rupture, proximal, left, initial encounter Rotator cuff strain, left, initial encou nter Acute pain of left shoulder documented in this encounter Care Teams Heritage Consultant Relationship Specialty Start Date End Date Susie López APRN PCP - General 05/21/15 06/30/19 documented as of this encounter
--- OUTSIDE RECORDS SUMMARY | 2022-07-25 10:52 | XMS_ITS | Encounter Summary ---
:1960 Author Organization [facility] [place] [address] Care Team Providers Name Role Phone Susie López APRN Primary Care Provider Reason for Referral Diagnostic Test (Routine) - Closed Specialty Diagnoses / Procedures Referred By Contact Refer red To Contact Radiology Diagnoses Neck pain Kari Bender PA [facility] Rad Mri Procedures MRI Cervical Spine wo Contrast (Generic) [facility] [place] [address] [place] [address] Referral ID Status Reason Start Date Expiration Date Visits V isits Requested Authorized [id number] Closed Specialty 10/30/2016 10/30/2017 1 1 Service Requested Reason for Visit Diagnostic Test (Routine) - Closed Specialty Diagnoses / Procedures Referred By Contact Refer red To Contact Radiology Diagnoses Neck pain Kari Bender PA [facility] Rad Mri Procedures MRI Cervical Spine wo Contrast (Generic) [facility] [place] [place] [address] [place] [address] Referral ID Status Reason Start Date Expiration Date Visits V isits Requested Authorized [id number] Closed Specialty 10/30/2016 10/30/2017 1 1 Service Requested Encounter Details Date Type Department Care Team Description 10/30/2016 Hospital Encounter MRI at [facility] Kam Singh MD Neck [place] [address] [address] [place] [address] ORTHOPAEDIC SURGERY [phone] [place] [address] (Wo rk) Social History Tobacco Use [...] disc disorder with radiculopathy of lumbar region HYDROcodone-acetaminophen take 1 tablet by 0 09/2911/19/2016 (VICODIN) 5-300 mg Tablet mouth every 4 to 6 hours if needed for severe pain CAUTION CAUSES SEDATION orphenadrine (NORFLEX) 100 Reported on 0 10/26/19 17 11/19/2016 mg Tablet Sustained Release 10/30/2016 methylPREDNISolone (MEDROL Use as directed 21 tablet 0 10/201611/19/2016 DOSPACK) 4 mg Tablets, Dose on product Pack package. vitamin E 400 unit Capsule Take 400 Units 0 09/02/2017 by mouth 2 times daily. BLACK COHOSH ORAL Take 1 tablet by 0 0 03/24/2017 mouth daily. acetaminophen (TYLENOL) 500 Take 1,000 mg by 0 03/24/2017 mg Tablet mouth every 6 hours as needed for Pain. meloxicam (MOBIC) 7.5 mg Take 1 tablet by 90 tablet 3 08/0402/19/2017 Tablet mouth 2 times daily as needed. gabapentin (NEURONTIN) 300 Take 3 capsules 270 capsule 3 03/201602/19/2017 mg Capsule by mouth 3 times daily. EPINEPHrine (EPIPEN) 0.3 Inject 0.3 mLs 2 each 1 016 02/19/2017 mg/0.3 mL Auto-Injector into the muscle once as needed. documented as of this encounter Plan of Treatment Upcoming Encounters Date Type Specialty Care Team Description 08/07/2022 TH Visit [facility] Sp[facility] Nahid Carl PsyD (TeleHealth) [facility] [place] [address] (Wo rk) documented as of this encounter Procedures Procedure Name Priority Date/Time Associated Diagnosis Comme nts MRI CERVICAL SPINE Routine 10/30/2016 12:20 PM Neck pain Re sults for this WO CONTRAST EST procedure are i n the results section. documented in this encounter Results MRI Cervical Spine wo Contrast (Generic) (10/30/2016 12:20 PM EST) Anatomical Region Laterality Modality C-spine Magnetic Resonance Specimen (Source) Anatomical Location Collection Method / Collectio n Time Received Time / Laterality Volume Impressions 10/30/2016 2:59 PM EST Changes of cervical spondylosis. Foraminal narrowing is most pronounced on the left at C4-C5, and on the right at C5-C6 . Narrative 10/30/2016 2:59 PM EST EXAMINATION: MRI CERVICAL SPINE WO CONTRAST (GENERIC) CLINICAL HISTORY: Left neck pain with ra dicular symptoms into left arm, looking to rule out nerve root impingment TECHNIQUE: MR the cervical spine perform ed without the use of intravenous contrast. COMPARISON: None FINDINGS: The overall cervical alignment is normal. There is no focal, aggressive appearing marrow lesion. Visu alized posterior fossa structures, and the craniocervical junction are unremark able. Cervical cord signal is normal for technique Findings at specific levels: C2-C3: There are uncovertebral and facet degenerative changes with minimal foraminal narrowing. No central canal st enosis. C3-C4: There is mild disc bulging with m inimal overall central canal narrowing. Uncovertebral and facet hypertrophic joseph nges produce moderate left foraminal narrowing. C4-C5: Disc bulging contributes to mild overall central canal narrowing. There is fairly extensive left-sided uncoverte bral and facet arthropathy with severe left foraminal narrowing. There is moder ate right foraminal narrowing as well. C5-C6: Disc bulging and posterior osteop hyte produces mild central canal narrowing. Uncovertebral and facet olivier es produce severe right and mild left foraminal narrowing. C6-C7: Disc bulging to produce mild cent ral canal narrowing. Uncovertebral and facet hypertrophic changes produce mild bilateral foraminal narrowing. Incidental note is made of a right perin eural cyst. C7-T1: There is mild disc bulging with m inimal overall central canal narrowing. There are uncovertebral and facet degene rative change with mild foraminal narrowing. There are small bilateral per ineural cysts. Procedure Note Jeff Bentley MD - 10/30/2016Format ting of this note might be different from the original. EXAMINATION: MRI CERVICAL SPINE WO CONTR AST (GENERIC) CLINICAL HISTORY: Left neck pain with ra dicular symptoms into left arm, looking to rule out nerve root impingment TECHNIQUE: MR the cervical spine perform ed without the use of intravenous contrast. COMPARISON: None FINDINGS: The overall cervical alignment is normal. There is no focal, aggressive appearing marrow lesion. Visu alized posterior fossa structures, and the craniocervical junction are unremark able. Cervical cord signal is normal for technique Findings at specific levels: C2-C3: There are uncovertebral and facet degenerative changes with minimal foraminal narrowing. No central canal st enosis. C3-C4: There is mild disc bulging with m inimal overall central canal narrowing. Uncovertebral and facet hypertrophic joseph nges produce moderate left foraminal narrowing. C4-C5: Disc bulging contributes to mild overall central canal narrowing. There is fairly extensive left-sided uncoverte bral and facet arthropathy with severe left foraminal narrowing. There is moder ate right foraminal narrowing as well. C5-C6: Disc bulging and posterior osteop hyte produces mild central canal narrowing. Uncovertebral and facet olivier es produce severe right and mild left foraminal narrowing. C6-C7: Disc bulging to produce mild cent ral canal narrowing. Uncovertebral and facet hypertrophic changes produce mild bilateral foraminal narrowing. Incidental note is made of a right perin eural cyst. C7-T1: There is mild disc bulging with m inimal overall central canal narrowing. There are uncovertebral and facet degene rative change with mild foraminal narrowing. There are small bilateral per ineural cysts. IMPRESSION Changes of cervical spondylosis. Foramin al narrowing is most pronounced on the left at C4-C5, and on the right at C5-C6 . Kam Singh MD [facility] MRI ORDERABLES documented in this encounter Visit Diagnoses Diagnosis Neck pain Cervicalgia documented in this encounter Care Teams Passenger Vessel Chef Relationship Specialty Start Date End Date Susie López APRN PCP - General 05/21/15 06/30/19 documented as of this encounter
--- OUTSIDE RECORDS SUMMARY | 2022-07-25 10:52 | XMS_ITS | Encounter Summary ---
:1960 Author Organization [facility] [place] [address] Care Team Providers Name Role Phone Susie López APRN Primary Care Provider Reason for Visit Reason Comments Neck Pain Encounter Details Date Type Department Care Team Description 01/14/2017 Office Visit [facility] Cervica l disc disorder Amanda YOUNG with radiculopathy of [facility] [address] [place], [place] [facility] [address] [address] [phone] Social History Tobacco Use Types Packs/Day Years [...] encounter Progress Notes Abel Delvalle MD - 01/14/2017 10:[address] Woods: I had the pleasure of seeing this patient back in followup. DIAGNOSES: 1. Left interosseous weakness in nondominant arm. 2. C7-T1 bilateral compression of the C8 nerve roots. 3. Status post left upper extremity EMG/nerve conduction studies without clear etiology, possible brachial plexus injury. 4. Left shoulder derangement. SUMMARY OF PLAN: I had the pleasure of seeing this patient back in followup. She has been seeing Occupational Therapy. I reviewed her last note from 01/08/2017, which noted increasing strength distally in her hand with decreasing strength proximally. Overall, 40% of her function was returned. Her hand function is significantly increased. She does have more shoulder pain, but that is a different pain than her radicular symptoms. 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 I would like to see her back in 1 month. She is going to continue with PT and OT. I am hesitant to consider surgical intervention given her proximal dysfunction and her improving strength. More than 50% of more than 45 minutes was utilized in counseling and decision around surgical versus nonsurgical options and reviewing her occupational therapy notes. All questions were answered. Abel Delvalle MD MS Special Needs Child Caregiver - Orthopedic Spine Surgery / Spine Center Automotive Designer - Department of Orthopedic Surgery / Academics and Research Cooper Helper - [facility] 01/14/2017 Spine Center Response Trends Patient-reported scores: myD-H [...] and Spine Center Nahid Carl PsyD (TeleHealth) [facility] [address] [place], [place] [address] (Wo rk) documented as of this encounter Visit Diagnoses Diagnosis Cervical disc disorder with radiculopath y of mid-cervical region Brachial neuritis or radiculitis nos documented in this encounter Care Teams Social Work Msw Relationship Specialty Start Date End Date Susie López APRN PCP - General 05/21/15 06/30/19 documented as of this encounter
--- OUTSIDE RECORDS SUMMARY | 2022-07-25 10:52 | XMS_ITS | Encounter Summary ---
:1960 Author Organization [facility] [place] [address] Care Team Providers Name Role Phone Rene, Susie JE Primary Care Provider Encounter Details Date Type Department Care Team Description 10/14/2016 Abstract Madelin Toussaint Conversion Apd Conversion, Flowsheet Results Provider, [address] [place] [address] Social History Tobacco Use Types Packs/Day [...] Sign Reading Time Taken Comments Blood Pressure 132/77 10/14/2016 12:54 Sourced from AP D PM EST Conversion Pulse - - Temperature - - Respiratory Rate - - Oxygen Saturation - - Inhaled Oxygen - - Concentration Weight 71 kg (156 lb 8.4 10/14/2016 12:54 Sourced from APD oz) PM EST Conversion Height 173 cm (5' 8.11) 10/14/2016 12:54 Sourced from APD PM EST Conversion Body Mass Index 23.72 10/14/2016 12:54 PM EST documented in this encounter Plan of Treatment Upcoming Encounters Date Type Specialty Care Team Description 08/07/2022 TH Visit [facility] Nahid Carl PsyD (TeleHealth) [facility] [place] [address] (Wo rk) documented as of this encounter Visit Diagnoses Not on filedocumented in this encounter Care Teams Director Of Student Financial Services Relationship Specialty Start Date End Date Susie López APRN PCP - General 05/21/15 06/30/19 documented as of this encounter
--- OUTSIDE RECORDS SUMMARY | 2022-07-25 10:52 | XMS_ITS | Encounter Summary ---
:1960 Author Organization [facility] [place] [address] Care Team Providers Name Role Phone Rene, Susie JE Primary Care Provider Reason for Visit Occupational Therapy ([place]) - Specialty Diagnoses / Procedures Referred By Contact Refer red To Contact Occupational Therapy Diagnoses Left arm weakness Abel Delvalle MD [facility] D R [address] [place] [phone] Fax: Referral ID Status Reason Start Date Expiration Date Visits V isits Requested Authorized [id number] Evaluate and 12/22/2016 12/22/2017 12 12 Treat Encounter Details Date Type Department Care Team Description 12/25/2016 Office Visit Occupational Therapy Carlota Rahman Bi ceps rupture, proximal, left, sequela; at [address] OT Acute pain of left shoulder; [address] [facility] Neck pain; [place] [address] [address] Left-sided muscle weakness [phone] PHYSICAL MEDICINE & [place] [address] Social History Tobacco Use Types Packs/Day Years [...] encounter Progress Notes Carlota Rahman, OT - 12/25/2016 8:00 AM EDT OCCUPATIONAL THERAPY INITIAL UPPER EXTREMITY EVALUATION Referral Source: Abel Delvalle MD Next MD Follow-up: PRN Total Treatment time: 80 Minutes Timed Code Treatment Time: 80 minutes OCCUPATIONAL PROFILE: Fely Shaw is a [...] surgery: N/A Pertinent History and/or Co-morbidities: 1. Biceps rupture, proximal, left, sequela 2. Acute pain of left shoulder 3. Neck pain 4. 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 Patient previously [...] perform without difficulty 10/10) Activity At Evaluation 1.) Donning shirts overhead 3 2.) Washing hair 5 3.) sewing 7 4.) Cooking; handling heavy pots and pans 3 5.) opening containers 5 6.) lifting/sliding/pushing/pulling at work >/= 50 1 Average Score: 4 Disabilities of the Arm, Shoulder, and Hand [...] your head Severe difficulty 7. Do heavy fans clerk (eg wash mcgowan, wash floors) Moderate difficulty [...] move your arm freely (eg playing frisbee, badminton, etc) Severe difficulty 20. Manage transportation needs [...] using the visual analog scale) At Rest: 0-1/10 posterior aspect of shoulder and later aspect of neck (left side) With Activity: 6-7/10 posterior aspect of shoulder and lateral aspect of shoulder/ neck Relieving factors: medication including tyelnol and neurotin, heating pads Special Testing Completed: Positive Froment's sign left Negative Froments sign on the right Negative Wartenberg's sign bilaterally 9 Hole Peg Test RIGHT LEFT Trial #1 18 seconds 18 seconds with 3 claims examiner slips/ dropped pegs Mean for age/gender 17.86 seconds 19.48 seconds Mean and Standard Deviation [...] of active motion with goniometer Right Left Shoulder Extension/Flexion 58/155 40/98 6-7/10 pain with ulnar nerve symptoms Shoulder Abduction 150 46 Shoulder Internal/External Rot. WFL 62 external rotation 6 inches from inferior angle of contralateral scapula 60 external rotation Elbow Extension/Flexion 0/151 -3/148 Wrist Extension/Flexion 70/70 45/70 Ulnar/Radial Deviation 40/30 30/30 Pronation/Supination 90/90 90/90 [...] 3-/5 Abductor digiti minimi 5/5 3/10 Strength: Business Line Controller Testing with Dynamometer setting #2 Pinch Testing with Pinch Gauge Right Left Business Line Controller setting 2 69.4/66.2/63.7 20.7/16.8/16.6 Business Line Controller Average 66.4 18 Business Line Controller norms for age and gender 61.7 57.3 [place] 08/08/11 Average: 11 3//4 Average: 3.3 3 Pt 13.5/13/14 Average: 13.5 4/2/4 Average: 3.3 Tip 4/5/5 Averaged 4.6 0//0 Average: 0.3 Women Hand Business Line Controller Strength in Pounds: Mean (SD) Age Right [...] 1366 mean and 1312 women, community based Nigerian population, healthy adults, Tanmay hand dynamometer); (Edward Sharp et al, 2008; n = 224; mean age = 75.4 (6.8); good health with normal hand functions; Tanmay dynamometer) Treatment Today: Evaluation Educated patient in etiology and biomechanics as related to patient's symptoms Patient education on joint protection strategies; education is ongoing and task specific Patient education provided on role/purpose of ergonomics and work station redesign assessment to ensure proper posture and positioning Patient fitted with neoprene CMC support to assist with functional pinch/claims examiner Instructed in splint wear and care during daily acitivites Therapeutic Exercises: isolated finger extension, gravity eliminated wrist extension/flexion, thumb palmar abduction with care not to hyperextend joints Strengthening Exercises: isometric strengthening of 1st dorsal interossei to facilitate improved CMCstability, finger abduction with beige (super soft) resistive putty, finger adduction with beige (super soft) resistive putty with care to avoid hyperextension at PIP joints, claims examiner strengthening with beige (super soft) resistive putty with care to avoid hyperextension of DIP joints, lumbrical pulls with beige (super soft) resistive putty with care not to hyperextend the PIP joints CLINICAL DECISION MAKING: Fely Shaw has pain, limited ROM, limited strength, limited coordination, and paresthesias causing functional deficits in ADL/IADL performance. Please see above, PSFS and DASH for specific functional deficits. Fely Shaw is able to demonstrate home exercises with written instructions provided. Fely Shaw has fair to good potential for gains with therapy with identified needs for skilled therapy for treatment of deficits noted during evaluation today, to maximize functional performance during daily activities. Fdc Goals (to be met by discharge): Date [...] progress 4.) Patient will demonstrate increased lateral menchcaa pinch strength by 3-4# from initial 3 pounds with the left hand to increase independence in functional activities. Goal Status: In progress 5.) Patient will demonstrate increased soto pinch strength by 3-4# from initial 3 pounds with theleft hand to increase independence in functional activities. Goal Status: In progress Short Term Goals (to be met by 01/09/17): Date Goal Met: Fely Shaw will be independent with home exercise program. Goal Status: In progress Fely Shaw will gain 10 degrees of wrist extension to demonstrate significantly improved functional performance as measured by >/= 2 point improvement on the total average score of the PSFS. Goal Status: In progress Fely Shaw will have decreased pain with activity to </= 4/10 to be able to complete bathing/dressing. Goal Status: In progress Patient will demonstrate increased grasp strength by 2-3# from initial 18 pounds with the left handto increase independence in functional activities. Goal Status: In progress Patient will demonstrate increased lateral menchaca pinch strength by 1-2# from initial 3 pounds with the left hand to increase independence in functional activities. Goal Status: In progress Patient will demonstrate increased soto pinch strength by 1-2# from initial 3 pounds with the left hand to increase independence in functional activities. Goal Status: In progress Patient will demonstrate significantly improved fine motor coordination for ADL/IADL performance including managing clothing fasteners as evidenced by completion of 9 hole peg test in </= 18 seconds without any claims examiner slips Goal Status: In progress PLAN: The patient is to be seen 2 time(s) per week, for 8 week(s) to progress toward short and intermodal customer service goals. Therapeutic exercises to increase functional mobility [...] Spine Center Nahid Carl PsyD (TeleHealth) [facility] [place], [place] [address] (Wo rk) Scheduled Referrals Name Type Priority Associated Order Schedule Diagnoses Referral to Outpatient Referral Routine Left arm weakness Ord ered: Occupational Therapy 017 documented as of this encounter Visit Diagnoses Diagnosis Biceps rupture, proximal, left, sequela Acute pain of left shoulder Neck pain Cervicalgia Left-sided muscle weakness Muscle weakness (generalized) documented in this encounter Care Teams Social Worker Assistant Relationship Specialty Start Date End Date Susie López APRN PCP - General 05/21/15 06/30/19 documented as of this encounter
--- OUTSIDE RECORDS SUMMARY | 2022-07-25 10:52 | XMS_ITS | Encounter Summary ---
:1960 Author Organization [facility] [place] [address] Care Team Providers Name Role Phone Susie López APRN Primary Care Provider Encounter Details Date Type Department Care Team Description 08/26/2016 External Results Neurology at [facility] Delta Woods MD [facility] [place] [facility] [place] [address] [place] [address] NEUROLOGY DEPT. [phone] [place], [place] [address] (Wo rk) Social History Tobacco [...] PsyD (TeleHealth) [facility] [address] [place], [place] [address] (Wo rk) documented as of this encounter Procedures Procedure Name Priority Date/Time Associated Diagnosis Comme nts EMG SCAN Routine 08/26/2016 documented in this encounter Results Scan Doc: EMG (08/26/2016) Narrative This result has an attachment that is no t available. Delta Woods MD MEDIA MGR SCAN EXT ORDR/RSLT documented in this encounter Visit Diagnoses Not on filedocumented in this encounter Care Teams Top Screw Relationship Specialty Start Date End Date Susie López APRN PCP - General 05/21/15 06/30/19 documented as of this encounter
--- OUTSIDE RECORDS SUMMARY | 2022-07-25 10:52 | XMS_ITS | Encounter Summary ---
:1960 Author Organization [facility] [place] [address] Care Team Providers Name Role Phone Rene Susie WOOTEN Primary Care Provider Reason for Referral Physical Therapy (Routine) - Closed Specialty Diagnoses / Procedures Referred By Contact Refer red To Contact Physical Therapy Diagnoses Cervical disc disorder with radiculopathy of mid-cervical region Neck pain Abel Delvalle MD [facility] [place] [address] Referral ID Status Reason Start Date Expiration Date Visits V isits Requested Authorized [id number] Closed Evaluate and 11/19/2016 05/18/2017 12 12 Treat Reason for Visit Reason Comments Neck Pain Left Arm Pain shoulder Encounter Details Date Type Department Care Team Description 11/19/2016 Office Visit Sp[facility] Center at Abel Delvalle, Cervica l disc disorder with radiculopathy of mid-cervical region; Amanda YOUNG Neck pain [facility] [place] [facility] [address] [place] [address] [phone] Social History Tobacco Use Types Packs/Day Years [...] encounter Progress Notes Abel Delvalle MD - 11/19/2016 12:00 PM EST Images from the original note were not included. Dear Doctors, I had the pleasure of seeing this patient back in followup for surgical consultation at [facility] for her chief complaint of left upper extremity left scapular pain and radicular arm pain. DIAGNOSIS: Cervical spondylosis with left upper extremity radiculopathy in a C7-C8 nerve root distribution with left interosseous weakness, wrist flexion weakness - #2 right hand dominant - #3 worker's comp injury associated with slip and fall in July 2016 - #4 left rotator cuff proximal biceps rupture treated non-operatively. Please see original consultation for details. SUMMARY AND PLAN: Within a reasonable degree of medical certainty, the associated neck and left upper extremity radicular symptoms are associated with the original injury in July 2016. She has had significant improvement with a short course of steroids. The soft collar made it worse. She is quite more comfortable today with 3/10. She still has significant weakness in her interosseous and wrist flexion. However, it is improved. Given her improvement, we are going to continue to have her treated with physical therapy. I gave her a work note for three weeks to stay out of work during that time of recovery. I think she has excellent prognosis and will be able to return to work at that time. Her past medical history, past surgical history, medication, and review of systems are unchanged from that previously documented and updated in the eD-H. Her exam is unchanged from that previously documented except as noted above. There are no new imaging. Notes are reviewed as well as telephone notes from the spine team. All questions were answered. She will contact us if her weakness does not improve and I am happy to see her back if that is the case. Spine Center Response Trends Patient-reported scores: myD-H Spine Questionnaire responses 04/30/2014 05/03/2014 06/21/2014 11/14/2016 11/18/2016 VR36 - Physical Function (Range: 0-100) - - - 32.8 32.8 VR36 - Bodily Pain (Range: 0-100) - - - 23.1 23.1 VR36 - PCS (Range: 0-100) - - - 38.7 38.7 VR36 - MCS (Range: 0-100) - - - 39.6 39.6 Oswestry Disability Index (Range: 0-100) 26 28 22 48 (Severe disability) 48 (Severe disability) Neck Disability Index (Range: 0-100) - - - 38 (Moderate disability) 38 (Moderate disability) documented in this encounter Plan of Treatment Upcoming Encounters Date Type Specialty Care Team Description 08/07/2022 TH Visit [facility] Nahid Carl PsyD (TeleHealth) [facility] [address] [place] [address] (Wo rk) Scheduled Referrals Name Type Priority Associated Diagnoses Order S chedule Referral to Outpatient Referral Routine Cervical disc disorde r Ordered: Physical Therapy with radiculopathy of mid-cervical reg ion Neck pain documented as of this encounter Visit Diagnoses Diagnosis Cervical disc disorder with radiculopath y of mid-cervical region Brachial neuritis or radiculitis nos Neck pain Cervicalgia documented in this encounter Care Teams Paediatric Physiotherapist Relationship Specialty Start Date End Date Susie López APRN PCP - General 05/21/15 06/30/19 documented as of this encounter
--- OUTSIDE RECORDS SUMMARY | 2022-07-25 10:52 | XMS_ITS | Encounter Summary ---
:1960 Author Organization [facility] [place] [address] Care Team Providers Name Role Phone ReneSusie fleming JE Primary Care Provider Encounter Details Date Type Department Care Team Description 12/26/2016 Office Visit [facility] at Abel Delvalle Cervica l disc disorder with radiculopathy of mid-cervical region; Amanda YOUNG Left-sided muscle weakness [facility] [address] [place], [place] [facility] [address] [place] [address] [phone] Social History Tobacco Use Types Packs/Day Years [...] encounter Progress Notes Abel Delvalle MD - 12/26/2016 9:[address] Woods, I had the pleasure of seeing this patient back in followup. DIAGNOSIS: 1. Left interosseous weakness, nondominant arm. 2. C7-T1 left bilateral compression of the nerve. 3. Status post left upper extremity EMG nerve conduction study without clear etiology. SUMMARY AND PLAN: I had the pleasure of seeing this patient back. She has no increased atrophy. Her function is about the same with 3-4/5 strength in the left interosseous. She is seeing OT for aggressive hand function exercises. She does have a positive Spurling's today recreating her parascapular and left upper extremity symptoms and numbness in her lateral digits. I would like to see her back in 3-4 weeks. At this point if she is not improved, consideration for a repeat EMG and nerve conduction study at the discretion of Dr. Woods versus an anterior cervical decompression arthrodesis. We discussed the risks and benefits of that procedure today. All questions were answered. More than 50% of more than 45 minutes were utilized in counseling around possible treatments around her prior tests, and she is going to see Occupational Therapy today. Abel Delvalle MD MS Local Flatbed Driver - Orthopedic Spine Surgery / Spine Center Inventory Control Planner - Department of Orthopedic Surgery / Academics and Research Horticultural Manager - [facility] 12/26/2016 Spine Center Response Trends Patient-reported scores: myD-H Spine Questionnaire responses 05/03/2014 06/21/2014 11/14/2016 11/18/2016 12/08/2016 VR36 - Physical Function (Range: 0-100) - - 32.8 32.8 39.3 VR36 - Bodily Pain (Range: 0-100) - - 23.1 23.1 37.5 VR36 - PCS (Range: 0-100) - - 38.7 38.7 43.9 VR36 - MCS (Range: 0-100) - - 39.6 39.6 36.6 Oswestry Disability Index (Range: 0-100) 28 22 48 (Severe disability) 48 (Severe disability) - Neck Disability Index (Range: 0-100) - - 38 (Moderate disability) 38 (Moderate disability) 30 (Moderate disability) documented in this encounter Plan of Treatment Upcoming Encounters Date Type Specialty Care Team Description 08/07/2022 TH Visit Pain and Spine Center Nahid Carl PsyD (TeleHealth) [facility] [address] [place], [place] [address] (Wo rk) documented as of this encounter Visit Diagnoses Diagnosis Cervical disc disorder with radiculopath y of mid-cervical region Brachial neuritis or radiculitis nos Left-sided muscle weakness Muscle weakness (generalized) documented in this encounter Care Teams Revenue Stamp Clerk Relationship Specialty Start Date End Date Susie López APRN PCP - General 05/21/15 06/30/19 documented as of this encounter
--- OUTSIDE RECORDS SUMMARY | 2022-07-25 10:52 | XMS_ITS | Encounter Summary ---
:1960 Author Organization [facility] Address [address] [place] [address] Care Team Providers Name Role Phone Susie López APRN Primary Care Provider Reason for Visit Reason Onset Date Comments Other 11/14/2016 to cancel today's ap pt secondary to provider needing to go to the OR Encounter Details Date Type Department Care Team Description 11/14/2016 Telephone Spine Center at [facility] non Dominga Funk Other (to cancel [facility] ZAFAR Galindo today's a ppt secondary Drive [place] [address] go to the OR) [phone] Social History Tobacco Use Types Packs/Day Years [...] this encounter Miscellaneous Notes Telephone Encounter - Dominga Funk RN - 11/14/2016 8:19 AM EST Call placed to pt to advise her that today's appt with Dr Delvalle would need to be cancelled secondary to his needing to go to the OR. Pt expressed concern as today's visit was for an evaluation to clear her for an anticipated RTW Friday 11/17. Informed pt that we would reschedule the appt at the first opportunity; 11/19 at the latest. Informed pt that updated OOW slip would be faxed to HR and offered to make call to Apolinar Kwon, pt's immediate campus supervisor to Make him aware of the change in plans, deferring her RTW until after seen. Call placed to Apolinra Kwon as planned; left detailed VM message for Apolinar advising him that Fely would not be in to work on Thursday explaining that we needed to extend her OOW status until she was evaluated. Advised we were rescheduling the appt from today secondary to provider needing to go to the OR to 11/19/16; that an update would be forthcoming following that evaluation. documented in this encounter Plan of Treatment Upcoming Encounters Date Type Specialty Care Team Description 08/07/2022 Visit [facility] Sp[facility] Nahid Carl PsyD (TeleHealth) [facility] [address] [place], [place] [address] (Wo rk) documented as of this encounter Visit Diagnoses Not on filedocumented in this encounter Care Teams Automatic Line Set Up Mechanic Relationship Specialty Start Date End Date Susie López APRN PCP - General 05/21/15 06/30/19 documented as of this encounter
--- OUTSIDE RECORDS SUMMARY | 2022-07-25 10:52 | XMS_ITS | Encounter Summary ---
:1960 Author Organization [facility] [place] [address] Care Team Providers Name Role Phone ReneSusie fleming JE Primary Care Provider Encounter Details Date Type Department Care Team Description 02/12/2017 Office Visit Occupational Therapy Carlota Rahman [facility] muscle at [facility] OT weakness [address] [place] [address] PHYSICAL MEDICINE & [place] [address] Social History Tobacco Use Types Packs/Day Years [...] encounter Progress Notes Carlota Rahman, OT - 02/12/2017 8:00 AM EDT OCCUPATIONAL THERAPY TREATMENT NOTE [...] and/or Co-morbidities: 1. 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 Manage transportation needs [...] 0/10 biceps; 0/10 left thumb With Activity: 3/10 about scapular, 3/10 pain about biceps, 3/10 posterior deltoid pain, 3/10 pain about base of left thumb, left small finger 3/10 pain Relieving factors: medication including tylenol and neurotin, heating pads Special Testing Completed: Positive Froment's sign left Negative Froments sign on the right Negative Wartenberg's sign bilaterally 9 Hole Peg Test RIGHT LEFT LEFT 01/08/17 LEFT 02/04/17 Trial #1 18 seconds 18 seconds with 3 gear shaper set up operator slips/ dropped pegs 18 seconds with 1 gear shaper set up operator slip 18 seconds with 1 gear shaper set up operator slip Mean for age/gender 17.86 seconds 19.48 [...] (MMT) Right Left Left 01/13/17 Left 02/12/17 MMT MMT Opponens pollicis 5/5 3-/5 3+/5 Flexor Pollicis Longus 5/5 3+/5 3+/5 Lumbricals 1 and 2 5/5 3/5 4/10 4+/10 Lumbricals 3 and 4 5/5 2/5 3+/5 4/10 Adductor Pollicis 5/5 3-/5 3+/5 Dorsal interossei 5/5 3-/5 3+/5 4/10 Palmar interossei 5/5 3-/5 3+/5 4/10 Abductor pollicis longus 5/5 3-/5 3-/5 4/10 Abductor pollicis brevis 4/5 3-/5 3 4/10 Extensor pollicis longus 4/5 2/5 2/5 Extensor pollicis brevis 4/5 2/5 3/5 Extensor digitorum communis 5/5 3-/5 3/5 Extensor indicis 4+/5 3-/5 3+/5 Extensor digiti minimi 5/5 3-/5 3/5 Abductor digiti minimi 5/5 3/5 3/5 Strength: Acid Cutter Testing with Dynamometer setting #2 Pinch Testing with Pinch Gauge Right Left 12/25/16 Left 01/08/17 Left 01/26/17 Left 01/29/17 Left 02/04/17 Left 02/12/17 Acid Cutter setting 2 69.4/66.2/63.7 20.7/16.8/16.6 29.0/29.2/25.9 16.3/11.1/11.5 7/10 pain back of arm 12.8/9.3/13.3 4/10 13.4/14.4/11.8 0/10 pain 8/10.3/7.3 Acid Cutter Average 66.4 18 27.96 12.9 11.8 13.2 8.6 Acid Cutter norms for age and gender 61.7 57.3 57.3 57.3 57.3 57.3 [place] 08/08/11 Average: 11 3/3/4 Average: 3.3 5.5/6/5.5 Average: 5.7 5/5/5 Average: 5 5/4/5 Average: 4.7 3/2.5/3 3 Pt 13.5//14 Average: 13.5 4//4 Average: 3.3 2/2/2 Average: 2 // Average: 3 3/2/2 Average: 2.3 3/2/2 Tip 4// Averaged 4.6 0/1/0 Average: 0.3 09/28/.5 Average: 1.2 09/28/.5 Average: 1.5 2/2/2 Average: 2 Women Hand Acid Cutter Strength in Pounds: Mean (SD) Age Right [...] 1366 mean and 1312 women, community based [place] population, healthy adults, Tanmay hand dynamometer); (Edwadr Sharp et al, 2008; n = 224; mean age = 75.4 (6.8); good health with normal hand functions; Tanmay dynamometer) Treatment Today: Reassessed gear shaper set up operator and pinchstrength; please see above for detailed results Therapeutic exercise Position Equipment Level of assistance Resistance Repetitions/Time Response Finger extensor strengthening Supported short sit velcro board Verbal and visual cues for correct completion Min-moderate resistance with thin strip of velcro 3 sets of 10 repetitions Patient demonstrated improved strength and activity tolerance as evidenced by increased repetition today Palmar pinch, lateral pinch, and tip pinch strengthening Supported short sit velcro board, BTE Verbal and visual cues for correct completion 3 inch pounds of force, thin strip of velcro 3 sets of 10 repetitions Patient demonstrated good tolerance to resisted pinching Improved consistency with joint protection techniques while pinching UE Strengthening: wrist flexion, wrist extension, wrist radial/ulnar deviation, forearm pronation/supination Supported short sit BTE Verbal and visual cues to maintain healthy joint positioning 2-4 inch pounds depending on exercise 30 second intervals for each exercise Patient demonstrated fatigue limiting ROM of final repetitions Stretching completed between each exercise Triceps press edge of mat, accelerated elbow extension with light weight ball toss standing Edge of mat, light weight therapy ball Verbal and visual cues for maximal elbow extension No resistance 1 setof 10 repetitions for each exercise Patient report paresthesias in D4 and D5 after elbow extension. Ulnar nerve glides completed after exercise Scapular strengthening: ball on the wall standing Verbal, visual, and tactile cues for upright posture/alignment No resistance 2 sets of 10 repetitions Patient benefited from cues for correct alignment Patient demonstrated improved activity tolerance as evidenced by increased repetition Active assisted shoulder flexion standing Wall ladder Verbal, visual, and tactile cues for upright posture/alignment No resistance 1 set of 5 repetitions with 15-30 second holds at end range shoulder flexion Patient demonstrated improved shoulder flexion in pain free range. Fatigue noted with repetition as evidenced by decreased shoulder flexion with last rep CLINICAL DECISION MAKING: Fely is approximately 1.5 weeks status post injection of her left shoulder and reports significantly decreased shoulder pain today. Fely demonstrated improved activity tolerance with reports of decreased shoulder pain throughout session. Further regression in gear shaper set up operator and pinchstrength noted with reassessment today. However, Fely demonstrated improved tolerance to overpressure with MMT of select intrinsic hand muscles. Fely Shaw has fair to good potential for gains withtherapy with identified needs for skilled therapy for treatment of deficits noted during evaluation today, to maximize functional performance during daily activities. Retail Account Specialist Goals (to be met by discharge): Date [...] In progress Short Term Goals (progress to 02/20/17): Date Goal Met: 01/08/17 Fely Shaw will [...] test in </= 18 seconds without any gear shaper set up operator slips Goal Status: In progress Patient will [...] 8 week(s) to progress toward short and resaw feeder goals. Therapeutic exercises to increase functional mobility [...] and Spine Center Nahid Carl PsyD (TeleHealth) [facility] [address] [place] [address] (Wo rk) documented as of this encounter Visit Diagnoses Diagnosis Left-sided muscle weakness Muscle weakness (generalized) documented in this encounter Care Teams Inventory Control Assistant Relationship Specialty Start Date End Date Susie López APRN PCP - General 05/21/15 06/30/19 documented as of this encounter
--- OUTSIDE RECORDS SUMMARY | 2022-07-25 10:52 | XMS_ITS | Encounter Summary ---
:1960 Author Organization [facility] [place] [address] Care Team Providers Name Role Phone Rene, Susie JE Primary Care Provider Encounter Details Date Type Department Care Team Description 02/03/2017 Abstract Madelin Toussaint Conversion Apd Conversion, Flowsheet Results Provider, [address] [place] [address] Social History Tobacco Use Types Packs/Day [...] Sign Reading Time Taken Comments Blood Pressure 118/72 02/03/2017 10:13 Sourced from AP D AM EDT Conversion Pulse - - Temperature - - Respiratory Rate - - Oxygen Saturation - - Inhaled Oxygen - - Concentration Weight 72.7 kg (160 lb 4.4 02/03/2017 10:13 Sourced fro m APD oz) AM EDT Conversion Height 173 cm (5' 8.11) 02/03/2017 10:13 Sourced from APD AM EDT Conversion Body Mass Index 24.29 02/03/2017 10:13 AM EDT documented in this encounter Plan of Treatment Upcoming Encounters Date Type Specialty Care Team Description 08/07/2022 TH Visit [facility] Nahid Carl PsyD (TeleHealth) [facility] [address], [place] [address] (Wo rk) documented as of this encounter Visit Diagnoses Not on filedocumented in this encounter Care Teams It Systems Engineer Relationship Specialty Start Date End Date Susie López APRN PCP - General 05/21/15 06/30/19 documented as of this encounter
--- OUTSIDE RECORDS SUMMARY | 2022-07-25 10:52 | XMS_ITS | Encounter Summary ---
:1960 Author Organization [facility] [address] Care Team Providers Name Role Phone Susie López APRN Primary Care Provider Encounter Details Date Type Department Care Team Description 02/04/2017 Office Visit Occupational Therapy Carlota Rahman Le ft-sided muscle weakness; at 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 Manage transportation needs [...] 0/10 biceps; 0/10 left thumb With Activity: 4/10 about scapular, 4-5/10 pain about biceps, 6/10 posterior deltoid pain, 3/10 pain about base of left thumb, left small finger 2/10 pain Relieving factors: medication including tylenol and neurotin, heating pads Special Testing Completed: Positive Froment's sign left Negative Froments sign on the right Negative Wartenberg's sign bilaterally 9 Hole Peg Test RIGHT LEFT LEFT 01/08/17 LEFT 02/04/17 Trial #1 18 seconds 18 seconds with 3 executive director of nursing slips/ dropped pegs 18 seconds with 1 executive director of nursing slip 18 seconds with 1 executive director of nursing slip Mean for age/gender 17.86 seconds 19.48 [...] Testing (MMT) Right Left Left 01/13/17 MMT MMT Opponens pollicis 5/5 3-/5 3+/5 Flexor Pollicis Longus 5/5 3+/5 3+/5 Lumbricals 1 and 2 5/5 3/5 4/10 Lumbricals 3 and 4 5/5 2/5 3+/5 Adductor Pollicis 5/5 3-/5 3+/5 Dorsal interossei 5/5 3-/5 3+/5 Palmar interossei 5/5 3-/5 3+/5 Abductor pollicis longus 5/5 3-/5 3-/5 Abductor pollicis brevis 4/5 3-/5 3 Extensor pollicis longus 4/5 2/5 2/5 Extensor pollicis brevis 4/5 2/5 3/5 Extensor digitorum communis 5/5 3-/5 3/5 Extensor indicis 4+/5 3-/5 3+/5 Extensor digiti minimi 5/5 3-/5 3/5 Abductor digiti minimi 5/5 3/5 3/5 Strength: Glaciologist Testing with Dynamometer setting #2 Pinch Testing with Pinch Gauge Right Left 12/25/16 Left 01/08/17 Left 01/26/17 Left 01/29/17 Left 02/04/17 Glaciologist setting 2 69.4/66.2/63.7 20.7/16.8/16.6 29.0/29.2/25.9 16.3/11.1/11.5 7/10 pain back of arm 12.8/9.3/13.3 4/10 13.4/14.4/11.8 0/10 pain Glaciologist Average 66.4 18 27.96 12.9 11.8 13.2 Glaciologist norms for age and gender 61.7 57.3 57.3 57.3 57.3 57.3 [place] 08/08/11 Average: 11 3/3/4 Average: 3.3 5.5/6/5.5 Average: 5.7 5/5/5 Average: 5 5//5 Average: 4.7 3 Pt 13.5/14 Average: 13.5 4/2/4 Average: 3.3 2/2/2 Average: 2 3//3 Average: 3 3/2/2 Average: 2.3 Tip 12/31/5 Averaged 4.6 0/1/0 Average: 0.3 09/28/.5 Average: 1.2 1/.5 Average: 1.5 2/2/2 Average: 2 Women Hand Glaciologist Strength in Pounds: Mean (SD) Age Right [...] 1366 mean and 1312 women, community based [place] population, healthy adults, Tanmay hand dynamometer); (Edward Sharp et al, 2008; n = 224; mean age = 75.4 (6.8); good health with normal hand functions; Tanmay dynamometer) Treatment Today: Reassessed executive director of nursing and pinchstrength; please see above for detailed results Therapeutic exercise Position Equipment Level of assistance Resistance Repetitions/Time Response Palmar pinch, lateral pinch, and tip pinch strengthening Supported short sit Theraputty, small coin sized stones Verbal and visual cues for correct completion Yellow, soft resistive putty, progressing to red soft-medium resistive putty Numerous Repetitions for each pinch type to remove 7 stones Patient demonstrated good tolerance to resisted pinching Improved consistency with joint protection techniques while pinching UE Strengthening: wrist flexion, wrist extension, wrist radial/ulnar deviation Supported short sit BTE Verbal and visual cues to maintain healthy joint positioning 2-4 inch pounds depending on [id number] second intervals for each exercise Patient demonstrated fatigue limiting ROM of final repetitions Mod assist provided for stretching between each exercise Neuromuscular Re-education Position Equipment Level of assistance Repetitions/ Time Response Functional Electrical Stimulation (91271) using Asymmetrical biphasic waveform for activation of lumbricals Intrinsic hand strengthening: Lumbrical Pulls Supported short sit Beige, super soft theraputty Max verbal, visual, and tactile cues for correct completion 12 minutes Patient demonstrated limited ability to maintain wrist extension at neutral during exercise Patient demonstrated improved activity tolerance as evidenced by increased duration today CLINICAL DECISION MAKING: Fely presents with reports of decreased shoulder pain after recent injection. Improved activity tolerance overall today with reports of decreased pain. Continued strength deficits noted with executive director of nursing reassessment today. No significant improvements to report at this time regarding pinch strength. Limited functional gains to report at this time as measured by the PSFS. Deficits remain present in pain, limited ROM, limited strength, limited coordination, and resultant limitationsin ADL/IADL performance. Fely Shaw has fair to good potential for gains with therapy with identified needs for skilled therapy for treatment of deficits noted during evaluation today, to maximize functional performance during daily activities. [facility] Goals (to be met by discharge): Date [...] test in </= 18 seconds without any executive director of nursing slips Goal Status: In progress Patient will demonstrate increased grasp strength by 2-3# from current 27.9 pounds with the left hand to increase independence in functional activities. 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 Goal Status: In progress PLAN: The patient is to be seen 2 time(s) per week, for 8 week(s) to progress toward short and intermediate goals. Therapeutic exercises to increase functional mobility [...] and Spine Center Nahid Carl PsyD (TeleHealth) [facility] [address], [place] [address] (Wo rk) documented as of this encounter Visit Diagnoses Diagnosis Left-sided muscle weakness Muscle weakness (generalized) Cervical disc disorder with radiculopath y of mid-cervical region Brachial neuritis or radiculitis nos documented in this encounter Care Teams Solder Leveler Printed Circuit Boards Relationship Specialty Start Date End Date Susie López APRN PCP - General 05/21/15 06/30/19 documented as of this encounter
--- OUTSIDE RECORDS SUMMARY | 2022-07-25 10:52 | XMS_ITS | Encounter Summary ---
:1960 Author Organization [facility] [place] [address] Care Team Providers Name Role Phone Rene, Susie JE Primary Care Provider Reason for Visit Reason Comments Left Arm Pain Encounter Details Date Type Department Care Team Description 12/11/2016 Office Visit Orthopaedics at [facility] Biceps rupture, proximal, [facility] D akilahmike left, [place] [address] encounter [phone] Social History Tobacco Use Types Packs/Day Years [...] Sign Reading Time Taken Comments Blood Pressure 139/66 12/11/2016 1:54 PM EDT Pulse 97 12/11/2016 1:54 PM EDT Temperature - - Respiratory Rate - - Oxygen Saturation - - Inhaled Oxygen Concentration - - Weight 68 kg (150 lb) 12/11/2016 1:54 PM EDT Height 172.7 cm (5' 8) 12/11/2016 1:54 PM EDT Body Mass Index 22.81 12/11/2016 1:54 PM EDT documented in this encounter Progress Notes Kari Bender PA - 12/11/2016 2:00 PM EDT PATIENT NAME: Fely Sahw AGE: 56 y.o. MR#: [id number] DATE OF VISIT: 12/11/2016 DATE OF INJURY/ONSET: 08/26/2016 (worker's comp) ?? STAFF: Dr. Singh ?? CHIEF COMPLAINT: follow up for left arm pain HISTORY OF PRESENT ILLNESS: Ms. Shaw is a 56 y.o. year old female who comes into clinic today for follow up regarding the left shoulder. She is now approximately 3 months out from her work-related injury. She was found to have a proximal biceps rupture on MRI, but no full-thickness rotator cuff tear.She also developed symptoms consistent with a cervical radiculopathy primarily involving C7-8. She is followed by Dr. Delvalle in the spine center. She has been out of work since her injury. She continues to have pain, but this has perhaps improved slightly. She was on a short course of oral steroids for her cervical spine. She also has been taking meloxicam. She has been going to physical therapy andis making slow, but steady progress. She is scheduled to follow-up in the spine center tomorrow. Hisscheduled to return to work in a limited capacity on Thursday, but she is going to review this again with Dr. Delvalle. PHYSICAL EXAM: Ms. Shaw is alert and oriented. She appears in no acute discomfort and is resting comfortably in the exam room. Inspection: She reports no erythema, ecchymosis, or swelling over the shoulder. Palpation: She continues to have discomfort over the upper trapezius and over the lateral aspect of her shoulder. She also has pain that radiates down her arm at times she 2 beats more to her spine. ROM: She is able to perform active forward flexion to about 145?? with pain at end range. Passively she can be brought to about 160??, again with pain. Her external rotation is to 65?? bilaterally. Internal rotation is to T10. Strength: She has intact rotator cuff strength in all planes, but has pain with resisted range of motion. She has 5/5 biceps and triceps strength, but continues to have weakness with wrist extension and flexion as well as with pinch network liaison. Orthopedic testing: Positive Neer and Grove Michael. Negative speed's and Yergason's. Neurovascular: He has intact sensation over the shoulder. Hand is well perfused. RADIOLOGICAL STUDIES: No new studies, previous imaging was reviewed ASSESSMENT: Persistent left shoulder pain following proximal pole biceps tendon rupture, rotator cuff tendinopathy without full-thickness tear; cervical radiculopathy PLAN: She has decent shoulder range of motion and strength, but continues to have pain. We discussedthat a subacromial injection may be helpful for pain control. She states that she has had cortisone injections for other musculoskeletal issues in the past with limited success and is unsure whether she would like to try an injection for her shoulder. She is going to think about this and will contact us if she would like to proceed. She should find that with additional therapy her shoulder symptoms will improve, but if pain is interfering with her ability to advance it may be worthwhile to reconsider the injection. Her Worker's Comp. paperwork was filled out today. She will continue to remain out of work. She is going to discuss her return to work planned with Dr. Delvalle tomorrow. From a shoulderstandpoint she can resume activity as tolerated. She feels that her cervical spine symptoms are limiting her more at this point. She will call for follow up once she knows the plan for her neck after next visit tomorrow. The patient understands to contact us if they have any other questions or concerns. The above documentation was completed using [employer] voice recognition software. documented in this encounter Plan of Treatment Upcoming Encounters Date Type Specialty Care Team Description 08/07/2022 TH Visit [facility] Nahid Carl PsyD (TeleHealth) [facility] [place] [address] (Wo rk) documented as of this encounter Visit Diagnoses Diagnosis Biceps rupture, proximal, left, subseque nt encounter documented in this encounter Care Teams Speeder Worker Relationship Specialty Start Date End Date Susie López APRN PCP - General 05/21/15 06/30/19 documented as of this encounter
--- OUTSIDE RECORDS SUMMARY | 2022-07-25 10:52 | XMS_ITS | Encounter Summary ---
:1960 Author Organization [facility] [place] [address] Care Team Providers Name Role Phone ReneSusie fleming JE Primary Care Provider Encounter Details Date Type Department Care Team Description 10/30/2016 Hospital Encounter XRay [place] [facility] Kam Singh MD [address] [place] [address] [place] [address] ORTHOPAEDIC SURG [place], [place] [address] (Wo rk) Social History Tobacco [...] Spine Center Nahid Carl PsyD (TeleHealth) [facility] [address] [place], [place] [address] (Wo rk) documented as of this encounter Procedures Procedure Name Priority Date/Time Associated Diagnosis Comme nts XR CERVICAL SPINE 4 Routine 10/30/2016 10:52 AM Neck pain R esults for this OR 5 VIEWS EST procedure are i n the results section. documented in this encounter Results XR Cervical Spine Any 4 Or 5 Views (10/30/2016 10:52 AM EST) Anatomical Region Laterality Modality L-spine N/A Digital Radiography Specimen (Source) Anatomical Location Collection Method / Collectio n Time Received Time / Laterality Volume Impressions 10/30/2016 3:41 PM EST 1. ??osseous neural foraminal narrowing at multiple levels bilaterally. 2. ??Degenerative disease throughout the cervical spine, as described above. I have personally reviewed the image(s) and the residents interpretation and agree with the findings, Melanie joshi 10/30/2016 3:41 PM Narrative 10/30/2016 3:41 PM EST EXAMINATION: XR CERVICAL SPINE ANY 4 OR 5 VIEWS CLINICAL HISTORY: Left neck pain with ra dicular symptoms into left arm TECHNIQUE: 5 views of the cervical spine COMPARISON: None FINDINGS: Multilevel degenerative changes througho ut the cervical spine, including uncovertebral and facet hypertrophic joseph nges at C2-C7. Disc space narrowing and endplate sclero sis most pronounced at C5-C6 and C6-C7. No listhesis, no fracture. Right-sided osseous neural foraminal miles rowing is most severe at C3-4, C4-C5 and C5-C6, where there is almost complete ob literation of the foramen. left-sided osseous neural foraminal narr owing is present at several levels, but appears to be most severe at C6-C7. Procedure Note Melanie Lind MD - 10/30/2016Formatt ing of this note might be different from the original. EXAMINATION: XR CERVICAL SPINE ANY 4 OR 5 VIEWS CLINICAL HISTORY: Left neck pain with ra dicular symptoms into left arm TECHNIQUE: 5 views of the cervical spine COMPARISON: None FINDINGS: Multilevel degenerative changes througho ut the cervical spine, including uncovertebral and facet hypertrophic joseph nges at C2-C7. Disc space narrowing and endplate sclero sis most pronounced at C5-C6 and C6-C7. No listhesis, no fracture. Right-sided osseous neural foraminal miles rowing is most severe at C3-4, C4-C5 and C5-C6, where there is almost complete ob literation of the foramen. left-sided osseous neural foraminal narr owing is present at several levels, but appears to be most severe at C6-C7. IMPRESSION 1. osseous neural foraminal narrowing at multiple levels bilaterally. 2. Degenerative disease throughout the c ervical spine, as described above. I have personally reviewed the image(s) and the residents interpretation and agree with the findings, Melanie joshi 10/30/2016 3:41 PM Kam Singh MD IMG DX ORDERABLES documented in this encounter Visit Diagnoses Not on filedocumented in this encounter Care Teams Taxicab Driver Relationship Specialty Start Date End Date Susie López APRN PCP - General 05/21/15 06/30/19 documented as of this encounter
--- OUTSIDE RECORDS SUMMARY | 2022-07-25 10:52 | XMS_ITS | Encounter Summary ---
:1960 Author Organization [facility] [place] [address] Care Team Providers Name Role Phone Rene, Susie JE Primary Care Provider Encounter Details Date Type Department Care Team Description 10/08/2016 Orders Only Orthopaedics at [facility] Dana Wheatley APRN [facility] [place] [address] ORTHOPAEDIC SURGERY [phone] [place], [place] [address] (Wo rk) Social History Tobacco [...] PsyD (TeleHealth) [facility] [place] [address] (Wo rk) documented as of this encounter Visit Diagnoses Not on filedocumented in this encounter Care Teams Rn Clinical Documentation Specialist Relationship Specialty Start Date End Date Susie López APRN PCP - General 05/21/15 06/30/19 documented as of this encounter
--- OUTSIDE RECORDS SUMMARY | 2022-07-25 10:52 | XMS_ITS | Encounter Summary ---
:1960 Author Organization [facility] [place] [address] Care Team Providers Name Role Phone Rene, Susie JE Primary Care Provider Reason for Referral Diagnostic Test (Routine) - Closed Specialty Diagnoses / Procedures Referred By Contact Refer red To Contact Radiology Diagnoses Neck pain Kari Bender PA [facility] Rad Mri Procedures MRI Cervical Spine wo Contrast (Generic) [facility] DR [facility] [place] [address] [place] [address] Referral ID Status Reason Start Date Expiration Date Visits V isits Requested Authorized [id number] Closed Specialty 10/30/2016 10/30/2017 1 1 Service Requested onsultation (Routine) - Closed Specialty Diagnoses / Procedures Referred By Contact Refer red To Contact Orthopaedics Diagnoses Neck pain Kari Bender PA [facility] D R [facility] [place] [address] [place] [address] Referral ID Status Reason Start Date Expiration Date Visits V isits Requested Authorized [id number] Closed Consult, 10/30/2016 10/30/2017 1 1 Test & Treat Reason for Visit Reason Comments Follow-up L shoulder pain WC DOI 08/26 Encounter Details Date Type Department Care Team Description 10/30/2016 Office Visit Orthopaedics at [facility]ck pain; [facility] Biceps rupture, proximal, le ft, subsequent encounter [place] [phone] Social History Tobacco Use Types Packs/Day [...] Reading Time Taken Comments Blood Pressure 135/72 10/30/2016 8:27 AM EST Pulse 81 10/30/2016 8:27 AM EST Temperature - - Respiratory Rate - - Oxygen Saturation - - Inhaled Oxygen Concentration - - Weight 71.2 kg (157 lb) 10/30/2016 8:27 AM EST verbal Height 172.7 cm (5' 8) 10/30/2016 8:27 AM EST verbal Body Mass Index 23.87 10/30/2016 8:27 AM EST documented in this encounter Progress Notes Kari Bender PA - 10/30/2016 8:30 AM EST PATIENT NAME: Fely Shaw AGE: 56 y.o. MR#: [id number] DATE OF VISIT: 10/30/2016 DATE OF INJURY/ONSET: 08/26/2016 (worker's comp) STAFF: Dr. Singh CHIEF COMPLAINT: follow up for left arm pain, new neck pain HISTORY OF PRESENT ILLNESS: Ms. Shaw is a 56 y.o. year old female who comes into clinic today for follow up regarding the left shoulder. She was seen in Dr. Singh's clinic proximally 2 weeks ago. At that time she had an MRI which showed that she had a proximal biceps tendon rupture. There is no evidence of a full- thickness rotator cuff tear. It was felt that this could be managed nonoperatively and she was given a prescription for physical therapy. She states that she was recently on vacation and developed sudden onset neck pain. She also has pain over the lateral aspect of her left arm which is exacerbated by axial loading of the cervical spine and cervical spine rotation to the left. She has followed up with her physical therapist and it was felt that her current symptoms are related more to her spine in her shoulder. She still has some pain over her biceps, but her current symptoms are different compared to her previous exam. She also feels that her left hand is weak. She has not had any sensory deficits. Prior to her vacation she was working with restrictions. PHYSICAL EXAM: Ms. Shaw is alert and oriented. She she is resting supine on the exam table as this is the most comfortable position. Inspection: She reports no new erythema, ecchymosis, or swelling over the shoulder. Palpation: She still has some pain over her biceps, but now also has pain from the lateral aspect ofthe elbow over the lateral upper arm into the scapula. She is point tender over the midline cervicalspine. ROM: In a supine position she was able to tolerate passive external rotation to 60?? and passive forward flexion to 150?? with the shoulder. Her cervical spine range of motion is limited by pain. Strength: She has intact rotator cuff strength in all planes, but has pain with resisted range of motion. She has intact strength with testing of the biceps, triceps, wrist flexors, wrist extensors. She has some weakness with resisted thumb extension and with finger abduction. Neurovascular: She has intact sensation over the shoulder, but has pain over the lateral arm. She has intact sensation to the fingertips. Hand is well perfused. RADIOLOGICAL STUDIES: No new imaging was obtained. ASSESSMENT: Acute onset neck pain with left-sided radicular symptoms, left proximal biceps tendon rupture PLAN: Dr. Singh also evaluated and spoke with the patient at today's visit. Her current symptoms seemto be more related to her neck as opposed to her shoulder. We will see about setting up an appointment in the spine center. In the meantime we will schedule x-rays and an MRI of her cervical spine. Shewas also given a prescription for a Medrol Dosepak to see if this would help with her pain. We will not prescribe any additional narcotics for her acute pain. She can continue with gentle passive rangeof motion for her shoulder, but otherwise we will defer any additional treatment for her neck to this spine center. Her Worker's Comp. paperwork was filled out today. In regards to her shoulder, her restrictions remain unchanged. She is unable to work because of her current acute pain which seems to be more neck related. Any additional restrictions related to work in regards to her neck symptoms should be defined by the treating provider for her spine. She should follow-up for her shoulder in approximately 6 weeks, but we can coordinate this appointment around any upcoming spine appointments as well. The patient understands to contact us if they have any other questions or concerns. The above documentation was completed using [employer] voice recognition software. documented in this encounter Plan of Treatment Upcoming Encounters Date Type Specialty Care Team Description 08/07/2022 TH Visit [facility] Nahid Carl PsyD (TeleHealth) [facility] [place] [address] (Wo rk) Scheduled Referrals Name Type Priority Associated Diagnoses Order S chedule Referral to Spine Outpatient Referral Routine Neck pain Ord ered: Center 10/30/2016 documented as of this encounter Results MRI Cervical Spine wo [...] . Kam Singh MD IMG MRI ORDERABLES XR Cervical Spine Any 4 Or 5 [...] encounter Visit Diagnoses Diagnosis Neck pain Cervicalgia Biceps rupture, proximal, left, subseque nt encounter Neck pain Cervicalgia documented in this encounter Care Teams Kiln Furniture Saw Tender Relationship Specialty Start Date End Date Susie López APRN PCP - General 05/21/15 06/30/19 documented as of this encounter
--- OUTSIDE RECORDS SUMMARY | 2022-07-25 10:52 | XMS_ITS | Encounter Summary ---
:1960 Author Organization [facility] [place] [address] Care Team Providers Name Role Phone Susie López APRN Primary Care Provider Encounter Details Date Type Department Care Team Description 10/30/2016 Orders Only [place]ed[place] [facility] Kari Bender PA [facility] [place] [address] ORTHOPAEDIC SURGERY [phone] [place], [place] [address] (Wo rk) Social History Tobacco [...] Spine Center Nahid Carl PsyD (TeleHealth) [facility] [address] [place] [address] (Wo rk) documented as of this encounter Visit Diagnoses Not on filedocumented in this encounter Care Teams Powertrain Control Systems Engineer Relationship Specialty Start Date End Date Susie López APRN PCP - General 05/21/15 06/30/19 documented as of this encounter
--- OUTSIDE RECORDS SUMMARY | 2022-07-25 10:52 | XMS_ITS | Encounter Summary ---
:1960 Author Organization [facility] [place] [address] Care Team Providers Name Role Phone Susie López APRN Primary Care Provider Reason for Referral Diagnostic Test (Routine) - Closed Specialty Diagnoses / Procedures Referred By Contact Refer red To Contact Radiology Diagnoses Arthralgia of hip or thigh, unspecified laterality Trochanteric bursitis of left hip Christ Bauer MD [facility] Rad Mri Procedures MRI Hip wo Contrast Left (Generic) [address] [place] [address] [place] [address] Referral ID Status Reason Start Date Expiration Date Visits V isits Requested Authorized [id number] Closed Specialty 09/25/2016 09/23/2017 1 1 Service Requested Reason for Visit Diagnostic Test (Routine) - Closed Specialty Diagnoses / Procedures Referred By Contact Refer red To Contact Radiology Diagnoses Arthralgia of hip or thigh, unspecified laterality Trochanteric bursitis of left hip Christ Bauer MD [facility] Rad Mri Procedures MRI Hip wo Contrast Left (Generic) [address] [place] [address] [place] [address] Referral ID Status Reason Start Date Expiration Date Visits V isits Requested Authorized [id number] Closed Specialty 09/25/2016 09/23/2017 1 1 Service Requested Encounter Details Date Type Department Care Team Description 09/25/2016 Hospital Encounter MRI at [facility] Christ Bauer, Arthralgia of hip or thigh, unspecified laterality; [facility] Trochanteric bursitis of left hip [address] [place], [place] [address] [address] ORTHOPAEDIC [phone] [place] [address] Social History Tobacco Use Types Packs/Day Years [...] disc disorder with radiculopathy of lumbar region vitamin E 400 unit Take 400 Units [...] times daily as needed. gabapentin (NEURONTIN) Take 3 capsules by 270 capsule 3 03/201602/19/2017 300 mg Capsule mouth 3 times daily. EPINEPHrine (EPIPEN) 0.3 Inject 0.3 mLs 2 each 1 016 02/19/2017 mg/0.3 mL Auto-Injector into the muscle once as needed. documented as of this encounter Plan of Treatment Upcoming Encounters Date Type Specialty Care Team Description 08/07/2022 TH Visit [facility] Nahid Carl PsyD (TeleHealth) [facility] [place], [place] [address] (Wo rk) documented as of this encounter Procedures Procedure Name Priority Date/Time Associated Diagnosis Comme nts MRI HIP LEFT WO Routine 09/25/2016 8:26 AM Arthralgia of hip o r Results for this CONTRAST EST thigh, unspecified procedure are in laterality the results Trochanteric section. bursitis of left hip documented in this encounter Results MRI Hip wo Contrast Left (Generic) (09/25/2016 8:26 AM EST) Anatomical Region Laterality Modality Hip Left Magnetic Resonance Specimen (Source) Anatomical Location Collection Method / Collectio n Time Received Time / Laterality Volume Impressions 09/25/2016 10:13 AM EST 1. ??Left hip degenerative osteoarthropathy with small osteophyte formation and labral tears. 2. ??Bilateral gluteal insertional tendi nopathy. 3. ??Calcium hydroxyapatite deposition a round the LEFT gluteus medius insertion surrounded by peritendinous edema may co ntribute to pain. 4. ??Degenerative disc disease within th e lumbar spine at the L5-S1 level. This may contribute to patient's symptoms. Co nsider dedicated lumbar spine MR clinically indicated. I have personally reviewed the image(s) and the residents interpretation and agree with the findings, Melanie joshi 09/25/2016 10:13 AM Narrative 09/25/2016 10:13 AM EST EXAMINATION: MRI HIP WO CONTRAST LEFT (G ENERIC) CLINICAL HISTORY: assess left hip for an terior hip and groin pain COMPARISON: Pelvis radiographs from 08/06 TECHNIQUE: Noncontrast MRI of the pelvis and hip was performed. FINDINGS: Radiographs: Amorphous calcification riley rounding bilateral greater trochanters. HIP JOINT: Left hip: Degenerative arthropathy of th e left hip, with marginal osteophyte formation as well as diffuse chondral th inning. No joint effusion. Non-arthrographic evaluation of the labr um demonstrates tears of the anterior, anterior superior and posterior superior labrum. No large perilabral cysts. Right hip: Large gelyc-er-rwah images of the right hip demonstrate degenerative osteoarthropathy, with marginal osteophy anibal. Cartilage not well characterized on this exam. Tendons: 1. ??Gluteal tendons-Insertional tendino fransisco around greater trochanters bilaterally. A globular area of peritend inous calcification surrounds the LEFT gluteus medius insertion surrounded by e xtensive peritendinous edema. The calcification surrounding the RIGHT grea ter trochanter is less well seen on this examination. The LEFT gluteal tendons ar e not interrupted. 2. ??LEFT hamstring-slightly heterogeneo us signal at insertion represents insertional tendinopathy. SOFT TISSUES: No soft tissue mass or hem atoma. BONES: No fracture or bone bruise. Sever e disc space narrowing at L5-S1, with posterior disc bulge resulting in centra l canal stenosis. Bilateral SI arthropathy, with joint space narrowing and marginal osteophyte formation. No focal marrow lesions. Procedure Note Melanie Lind MD - 09/25/2016Formatt ing of this note might be different from the original. EXAMINATION: MRI HIP WO CONTRAST LEFT (G ENERIC) CLINICAL HISTORY: assess left hip for an terior hip and groin pain COMPARISON: Pelvis radiographs from 08/06 TECHNIQUE: Noncontrast MRI of the pelvis and hip was performed. FINDINGS: Radiographs: Amorphous calcification riley rounding bilateral greater trochanters. HIP JOINT: Left hip: Degenerative arthropathy of th e left hip, with marginal osteophyte formation as well as diffuse chondral th inning. No joint effusion. Non-arthrographic evaluation of the labr um demonstrates tears of the anterior, anterior superior and posterior superior labrum. No large perilabral cysts. Right hip: Large bzvah-xf-zeak images of the right hip demonstrate degenerative osteoarthropathy, with marginal osteophy anibal. Cartilage not well characterized on this exam. Tendons: 1. Gluteal tendons-Insertional tendinopa thy around greater trochanters bilaterally. A globular area of peritend inous calcification surrounds the LEFT gluteus medius insertion surrounded by e xtensive peritendinous edema. The calcification surrounding the RIGHT grea ter trochanter is less well seen on this examination. The LEFT gluteal tendons ar e not interrupted. 2. LEFT hamstring-slightly heterogeneous signal at insertion represents insertional tendinopathy. SOFT TISSUES: No soft tissue mass or hem atoma. BONES: No fracture or bone bruise. Sever e disc space narrowing at L5-S1, with posterior disc bulge resulting in centra l canal stenosis. Bilateral SI arthropathy, with joint space narrowing and marginal osteophyte formation. No focal marrow lesions. IMPRESSION 1. Left hip degenerative osteoarthropath y with small osteophyte formation and labral tears. 2. Bilateral gluteal insertional tendino fransisco. 3. Calcium hydroxyapatite deposition colton und the LEFT gluteus medius insertion surrounded by peritendinous edema may co ntribute to pain. 4. Degenerative disc disease within the lumbar spine at the L5-S1 level. This may contribute to patient's symptoms. Co nsider dedicated lumbar spine MR clinically indicated. I have personally reviewed the image(s) and the residents interpretation and agree with the findings, Melanie Diogo joshi 09/25/2016 10:13 AM Christ Bauer MD IMG MRI ORDERABLES documented in this encounter Visit Diagnoses Diagnosis Arthralgia of hip or thigh, unspecified laterality Trochanteric bursitis of left hip Enthesopathy of hip region documented in this encounter Care Teams Marine Driller Relationship Specialty Start Date End Date Susie López APRN PCP - General 05/21/15 06/30/19 documented as of this encounter
--- OUTSIDE RECORDS SUMMARY | 2022-07-25 10:52 | XMS_ITS | Encounter Summary ---
:1960 Author Organization [facility] [place] [address] Care Team Providers Name Role Phone Susie López JE Primary Care Provider Encounter Details Date Type Department Care Team Description 01/13/2017 Office Visit Occupational Therapy Carlota Rahman Le ft-sided muscle weakness; [place] [facility] [place] of [place]; [facility] Biceps ru pture, proximal, left, sequela; [facility] Cervical disc disorder with radiculopath [place] [address] PHYSICAL MEDICINE [phone] & [place] [address] Social History Tobacco Use Types Packs/Day Years [...] encounter Progress Notes Carlota Rahman, OT - 01/13/2017 3:00 PM EDT OCCUPATIONAL THERAPY TREATMENT NOTE Referral Source: Abel Delvalle MD Next MD Follow-up: PRN Total Treatment time: 57 Minutes Timed Code Treatment Time: 57 minutes OCCUPATIONAL PROFILE: Fely Shaw is a [...] and/or Co-morbidities: 1. 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 Patient [...] your head Severe difficulty 7. 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 Manage transportation needs [...] using the visual analog scale) At Rest: 3/10 pain down shoulder blades; 0/10 biceps; 0/10 left thumb With Activity: 5/10 about scapular, 6/10 pain about biceps, 2/10 pain about base of left thumb Relieving factors: medication including tylenol and neurotin, heating pads Special Testing Completed: Positive Froment's sign left Negative Froments sign on the right Negative Wartenberg's sign bilaterally 9 Hole Peg Test RIGHT LEFT LEFT 01/08/17 Trial #1 18 seconds 18 seconds with 3 plate worker slips/ dropped pegs 18 seconds with 1 plate worker slip Mean for age/gender 17.86 seconds 19.48 [...] Abductor digiti minimi 5/5 3/5 3/5 Strength: Appellate Court Clerk Testing with Dynamometer setting #2 Pinch Testing with Pinch Gauge Right Left 12/25/16 Left 01/08/[address] Clerk setting 2 69.4/66.2/63.7 20.7/16.8/16.6 29.0/29.2/25.[address] Clerk Average 66.[address] Clerk norms for age and gender 61.7 57.3 57.3 [place] 08/08/11 Average: 11 3/3/4 Average: 3.3 5.5/6/5.5 Average: 5.7 3 Pt 13./ Average: 13.5 4/2/4 Average: 3.3 2/2/2 Average: 2 Tip 4/5/5 Averaged 4.6 0/1/0 Average: 0.3 //.5 Average: 1.[address] Clerk Strength in Pounds: Mean (SD) Age Right [...] 1366 mean and 1312 women, community based [place] population, healthy adults, Tanmay hand dynamometer); (Edward [...] Level of assistance Resistance Repetitions/Time Response Reassessed UE ROM Supported short sit Goniometer Direct verbal cues for instruction Patient demonstrated improved elbow and wrist ROM however limited shoulder ROM gains to report at this time Shoulder ROM limited in part due to pain Reassessed UE strength via MMT Supported short sit N/A Direct verbal cues for instruction Light manual over pressure when appropriate Patient demonstrated improved UE strength; please see above for details Triceps press Unsupported short sit Edge of mat, towel roll to reduce wrist extension on left Directverbal and visual cues for instruction, total assist for activity modification isometric 10 repetitions Attempt triceps kick backs however patient reported discomfort about upper trapezius bilaterally and sharp, burning pain about posterior arm Pain treated with activity modification: Patient tolerated closed chain strengthening with reports of 0/10 pain Patient demonstrated fatigue with repetition UE active assisted ROM: shoulder flexion, scapular protraction/retraction, elbow flexion/extension supine Light weigh dowel (less than 1#) Direct verbal and visual cues for instruction and for completion in pain free range No added resistance 8 repetitions for each exercise Patient demonstrated improved shoulder flexion with repetition to approximately 140-150 degrees Patient reported discomfort with scapular retraction; pain treated with activity modification Patient demonstrated fatigue with repetition Therapeutic activity: Patient reports need for low profile splint to allow for glove wear at work; fabricated fabrifoam thumb/wrist support Patient educated on orthosis don/doff. Patient initially donned fabrifoam splint incorrectly. Reviewed correct don/doff. Patient correctly returned demonstration Patient reported left wrist pain. Kinesiotape applied today using a I band with 2 willian cuts for functional correction of the left wrist. Patient was instructed in removal techniques in case of skin irritation, increased pain, or general discomfort. Patient demonstrated improved ROM after tape application CLINICAL DECISION MAKING: Fely has demonstrated significant gains this interim, meeting 4 short term goals. Gains made in improved ROM, strength, coordination, and function. Significantly improved active wrist extension noted today, meeting short term goal. Significantly improved plate worker strength measured via hand held dynamometer noted [...] test in </= 18 seconds without any plate worker slips Goal Status: In progress Patient will [...] 8 week(s) to progress toward short and prison goals. Therapeutic exercises to increase functional mobility [...] and Spine Center Nahid Carl PsyD (TeleHealth) [facility] [address], [place] [address] (Wo rk) documented as of this encounter Visit Diagnoses Diagnosis Left-sided muscle weakness Muscle weakness (generalized) Acute pain of left shoulder Biceps rupture, proximal, left, sequela Cervical disc disorder with radiculopath y of mid-cervical region Brachial neuritis or radiculitis nos documented in this encounter Care Teams Ppa Teacher Relationship Specialty Start Date End Date Susie López APRN PCP - General 05/21/15 06/30/19 documented as of this encounter
--- OUTSIDE RECORDS SUMMARY | 2022-07-25 10:52 | XMS_ITS | Encounter Summary ---
:1960 Author Organization [facility] [place] [address] Care Team Providers Name Role Phone Susie López APRN Primary Care Provider Reason for Referral Consultation (Routine) - Closed Specialty Diagnoses / Procedures Referred By Contact Refer red To Contact Neurology Diagnoses Left arm pain Abel Delvalle MD [facility] [address] [place] [address] [place] [address] [place] [address] Referral ID Status Reason Start Date Expiration Date Visits V isits Requested Authorized [id number] Closed Consult, 12/12/2016 12/12/2017 1 1 Test & Treat Reason for Visit Reason Comments Neck Pain left arm/hand weakness Encounter Details Date Type Department Care Team Description 12/12/2016 Office Visit Spine Center at Abel [facility], [place] pain; Amanda YOUNG Cervical disc disorder with radiculopath y of mid-cervical region; [facility] MEDICAL Neck pain [address] [place], [place] [facility] [address] [place] [address] [phone] Social History Tobacco Use Types Packs/Day Years [...] encounter Progress Notes Abel Delvalle MD - 12/12/2016 10:40 AM EDT Dear doctors, I had the pleasure of seeing this patient back in followup for surgical consultation at [facility] for chief complaint of left upper extremity scapular pain and radicular arm pain. DIAGNOSES: 1. Cervical spondylosis, left upper extremity radiculopathy in a C7-C8 nerve root distribution with left interosseus weakness, wrist flexion weakness. 2. Lcitu-mzut-klecjxkv. 3. Worker's Comp injury associated with slip and fall in 07/2016. 4. Left rotator cuff proximal biceps rupture, treated non-operatively, followed by Dr. Christ Singh. Please see his notes. Please see the original consultation for details. SUMMARY AND PLAN: This is a patient who comes back, and her shoulder scapular pain have improved. She has continued significant interosseus weakness. She was having an improvement. However, she has plateaued given physical therapy. Her past medical history, past surgical history, and medications are all unchanged and as previously documented. Her exam still has significant wrist flexion weakness, as well as interosseus weakness. Triceps is 4/5. It has been going on for 3.5 months. She rates that she has had about 50% improvement. She is going back to work Thursday half-time. My recommendation is that I request authorization for an EMG nerve conduction study of the left upper extremity for ulnar neuropathy, as well as other compression neuropathies consistent with the findings versus cervical radiculopathy. All questions are answered. Abel Delvalle MD MS Supervisor Nutritional Yeast - Orthopedic Spine Surgery / Spine Center Admissions Counselor - Department of Orthopedic Surgery / Academics and Research Relief Worker - [facility] 12/15/2016 documented in this encounter Plan of Treatment Upcoming Encounters Date Type Specialty Care Team Description 08/07/2022 TH Visit [facility] Nahid Carl PsyD (TeleHealth) [facility] [address] [place], [place] [address] (Wo rk) Scheduled Referrals Name Type Priority Associated Diagnoses Order S chedule Referral to Outpatient Referral Routine Left arm pain Ordered : Neurology 12/12/2016 documented as of this encounter Visit Diagnoses Diagnosis Left arm pain Pain in limb Cervical disc disorder with radiculopath y of mid-cervical region Brachial neuritis or radiculitis nos Neck pain Cervicalgia documented in this encounter Care Teams Payroll And Benefits Analyst Relationship Specialty Start Date End Date Susie López APRN PCP - General 05/21/15 06/30/19 documented as of this encounter
--- OUTSIDE RECORDS SUMMARY | 2022-07-25 10:52 | XMS_ITS | Encounter Summary ---
:1960 Author Organization [facility] Address [facility] [place] [address] Care Team Providers Name Role Phone Susie López JE Primary Care Provider Reason for Visit Reason Comments Left Shoulder Pain DOI 08/22/16 Encounter Details Date Type Department Care Team Description 10/16/2016 Office Visit Orthopaedics at [facility] Kma Singh, Biceps rupture, [facility] proximal, left, Drive [facility] [place] [address] CENTER [phone] ORTHOPAEDIC SURGERY [place] [address] Social History Tobacco Use Types Packs/Day Years [...] Sign Reading Time Taken Comments Blood Pressure 157/63 10/16/2016 2:00 PM EST Pulse 87 10/16/2016 2:00 PM EST Temperature - - Respiratory Rate - - Oxygen Saturation - - Inhaled Oxygen Concentration - - Weight 71.2 kg (157 lb) 10/16/2016 2:00 PM EST verbal Height 172.7 cm (5' 8) 10/16/2016 2:00 PM EST verbal Body Mass Index 23.87 10/16/2016 2:00 PM EST documented in this encounter Progress Notes Grabiel Liz MD - 10/16/2016 2:05 PM EST CHIEF COMPLAINT: Left shoulder pain. 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 She continued to have significant pain. She comes in today for followup. She has done physical therapy which has been very helpful for her. She is also taking meloxicam and Tylenol which provide her relief from the pain. She had been back to work with restrictions. PHYSICAL EXAMINATION: In general she is a well-appearing female in no acute distress. She is awake, alert and appropriately answers questions. She was able to actively flex up to about 95 degrees of forward flexion and 80 degrees of abduction. She was able to passively be able to get up to 160 degrees of forward flexion. She has pain with Speed's test but no pain with Yergason's test. She does have a deformity in her left biceps about midway down; there is no associated ecchymosis. She has good strength throughout her shoulder with 5/5 strength testing in all of her rotator cuff muscles. IMAGING: We have an MRI dated 10/08/2016 that demonstrates a long head of the biceps rupture with retraction. ASSESSMENT AND PLAN: Ms. Shaw is a 56-year-old female coming in with a left proximal biceps rupture after a fall. Her rotator cuff is intact. We discussed treatment options with her, encouraging her to continue with her anti-inflammatories and physical therapy. We would not recommend surgery. She expressed good understanding of this. She can follow up on a p.r.n. Basis. This patient was seen and plan formulated in conjunction with Dr. Singh. Grabiel Liz MD PGY-3 Orthopaedic Surgery Kam Singh MD - 10/16/2016 2:05 PM EST Attending Addendum: The preceding portion of this note was written by Dr. Liz. I personally saw and evaluated the patient as well and I agree with the assessment and plan documented above. Kam Singh M.D., M.S. Insurance Claims Supervisor of Orthopaedic Surgery Shoulder, Elbow, and Sports Medicine Department [place] [address] documented in this encounter Plan of Treatment Upcoming Encounters Date Type Specialty Care Team Description 08/07/2022 TH Visit Pain and Spine Center Nahid Carl PsyD (TeleHealth) [facility] [address] [place] [address] (Wo rk) documented as of this encounter Visit Diagnoses Diagnosis Biceps rupture, proximal, left, subseque nt encounter documented in this encounter Care Teams Mill Recorder Relationship Specialty Start Date End Date Susie López APRN PCP - General 05/21/15 06/30/19 documented as of this encounter
--- OUTSIDE RECORDS SUMMARY | 2022-07-25 10:52 | XMS_ITS | Encounter Summary ---
:1960 Author Organization [facility] [address] Care Team Providers Name Role Phone Susie López APRN Primary Care Provider Reason for Visit Reason Comments Neck Pain clumsiness in the left hand with some numbness Encounter Details Date Type Department Care Team Description 02/11/2017 Office Visit Spine Center at [facility], Mirna Johnsonica l disc disorder Amanda YOUNG with radiculopathy of [address] [facility] [address] [place], [place] SPINE [place] [address] [address] [phone] Social History Tobacco Use Types Packs/Day Years [...] Sign Reading Time Taken Comments Blood Pressure 118/68 02/11/2017 8:44 AM EDT Pulse - - Temperature - - Respiratory Rate - - Oxygen Saturation - - Inhaled Oxygen Concentration - - Weight 72.6 kg (160 lb) 02/11/2017 8:44 AM EDT Height 172.7 cm (5' 8) 02/11/2017 8:44 AM EDT Body Mass Index 24.33 02/11/2017 8:44 AM EDT documented in this encounter Progress Notes Abel Delvalle MD - 02/11/2017 8:40 AM EDT Kari Bender, [facility] [place] [address] Susie López APRN [facility] OCCUPATIONAL MEDICINE / [facility] 03* Delta Woods MD Dear Colleagues, I had the pleasure of seeing this patient back in followup. ?? DIAGNOSES: 1. Left interosseous weakness in nondominant arm. 2. C7-T1 bilateral compression of the C8 nerve roots. 3. Status post left upper extremity EMG/nerve conduction studies without clear etiology, possible brachial plexus injury. 4. Left shoulder derangement. ?? SUMMARY OF PLAN: I had the pleasure [...] work. Had a injection in shoulder at [facility]. Helped. Doing PT for shoulder. +Spurling. No atrophy of hand. Hand function IO 12/31 left. +Impingement Left shoulder. (MRI Biceps tear, RC tear) ?? 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 I would like to see her back in 1 month. She is going to continue with PT and OT. Plan 1. Continue restriction for work. As written. 2. ??Continue PT OT. 3. Re-evaluate in 1 month. Discussed surgical options. More than 50% of more than 45 minutes was utilized in counseling and decision around surgical versus nonsurgical options and reviewing her occupational therapy notes. Sincerely, Abel Delvalle MD MS Catcher Helper - Orthopedic Spine Surgery / Spine Center Spindle Setter - Department of Orthopedic Surgery / Academics and Research Precision Aircraft Structure Assembler - [facility] 02/11/2017 Spine Center Response Trends Patient-reported scores: myD-H [...] and Spine Center Nahid Carl PsyD (TeleHealth) [facility] [address] [place], [place] [address] (Wo rk) documented as of this encounter Visit Diagnoses Diagnosis Cervical disc disorder with radiculopath y of mid-cervical region Brachial neuritis or radiculitis nos documented in this encounter Care Teams Director Statistical Programming Relationship Specialty Start Date End Date Susie López APRN PCP - General 05/21/15 06/30/19 documented as of this encounter
--- OUTSIDE RECORDS SUMMARY | 2022-07-25 10:52 | XMS_ITS | Encounter Summary ---
:1960 Author Organization [facility] [place] [address] Care Team Providers Name Role Phone Susie López APRN Primary Care Provider Encounter Details Date Type Department Care Team Description 01/26/2017 Office Visit Occupational Therapy Carlota Rahman Le ft-sided muscle weakness; at [facility] OT Cervical disc disorder with radiculopath y of mid-cervical region [address] [place] [address] CENTER [phone] PHYSICAL MEDICINE & [place] [address] Social History Tobacco Use Types Packs/Day Years [...] encounter Progress Notes Carlota Rahman OT - 01/26/2017 8:00 AM EDT OCCUPATIONAL THERAPY TREATMENT NOTE Referral Source: Abel Delvalle MD Next MD Follow-up: PRN Total Treatment time: 40 Minutes Timed Code Treatment Time: 40 minutes OCCUPATIONAL PROFILE: Fely Shaw is a [...] disorder with radiculopathy of mid-cervical region 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 Manage transportation needs [...] using the visual analog scale) At Rest: 5-6/10 pain down shoulder blades; 0/10 biceps; 0/10 left thumb With Activity: 8/10 about scapular, 6010 pain about biceps, 3/10 pain about base of left thumb, left small finger 2/10 pain Relieving factors: medication including tylenol and neurotin, heating pads Special Testing Completed: Positive Froment's sign left Negative Froments sign on the right Negative Wartenberg's sign bilaterally 9 Hole Peg Test RIGHT LEFT LEFT 01/08/17 Trial #1 18 seconds 18 seconds with 3 guest house manager slips/ dropped pegs 18 seconds with 1 guest house manager slip Mean for age/gender 17.86 seconds 19.48 [...] Abductor digiti minimi 5/5 3/5 3/5 Strength: R D Manager Testing with Dynamometer setting #2 Pinch Testing with Pinch Gauge Right Left 12/25/16 Left 01/08/17 Left 01/26/17 R D Manager setting 2 69.4/66.2/63.7 20.7/16.8/16.6 29.0/29.2/25.9 16.3/11.1/11.5 7/10 pain back of arm R D Manager Average 66.4 18 27.96 12.9 R D Manager norms for age and gender 61.7 57.3 57.3 57.3 [place] 08/08/11 Average: 11 3/3/4 Average: 3.3 5.5/6/5.5 Average: 5.7 5//5 Average: 5 3 Pt 13.5/14 Average: 13.5 4/2/4 Average: 3.3 2/2/2 Average: 2 3/3/3 Average: 3 Tip 4/5/5 Averaged 4.6 0/1/0 Average: 0.3 09/28/1.5 Average: 1.2 //.5 Average: 1.5 Women Hand R D Manager Strength in Pounds: Mean (SD) Age [...] 1366 mean and 1312 women, community based [place] population, healthy adults, Tanmay hand dynamometer); (Edward Sharp et al, 2008; n = 224; mean age = 75.4 (6.8); good health with normal hand functions; Tanmay dynamometer) Treatment Today: Fabricated forearm-based thumb spica for night time wear due to CMC joint pain. Patient has a comfort cool soft, thumb support for daytime wear Therapeutic exercise Position Equipment Level of assistance Resistance Repetitions/Time Response Hand strengthening: thumb flexion, opposition, lumbrical pulls Supported short sit Theraputty Mod verbal and visual cues for correct completion Max tactile cues for wrist positioning yellow, light resistance putty 10 repetitions Patient benefited from verbal and visual cues to maintain healthy joint positioning Patient benefited from cues to maintain neutral wrist position Patient benefited from active rest break: palmar stretch between sets Issued thumb collection clerk for home program Palmar pinch, lateral pinch, and tip pinch strengthening Supported short sit velcro board Verbal andvisual cues for correct completion Minimal to moderate resistive clothespins 10 Repetitions for eachpinch type Patient demonstrated fair tolerance to resisted pinching today however with repetition, patient reported pain in neck/shoulder. Pain treated with activity modification Improved consistency with joint protect techniques while pinching Hand strengthening: Finger extension against light resistance Supported short sit velcro board Verbal and visual cues for correct completion Minimal resistance 2 sets of 10 repetitions Patient demonstrated good tolerance to light resistance as evidenced by full finger extension with each repetition Patient reported fatigue with repetition R D Manager strengthening Supported short sit Theraband, built up foam guest house manager Verbal and visual cues for correct completion, min assist to create tension in band Green, mod resistive theraband 2 sets of 10 repetitions Patient demonstrated good tolerance to resistive gripping Composite stretching completed between each set Reassessed guest house manager and pinch strength; please see above for detailed results CLINICAL DECISION MAKING: Fely presents with reports of increased upper trapezius/neck/shoulder pain limiting her tolerance to therapy and strength reassessment today. Plan to reassess on later date when symptoms improve. Patient is currently receiving PT services for pain management of the neck/shoul luis. While patient demonstrated significantly decreased guest house manager strength today, it is unclear if strength was related to weakness or limited due to pain. Fely Shaw has fair to good potential for gainswith therapy with identified needs for skilled therapy for treatment of deficits noted during evaluation today, to maximize functional performance during daily activities. Detention Goals (to be met by discharge): Date [...] In progress Short Term Goals (progress to 02/06/17 due to elevated pain limiting strength reassessment): Date Goal Met: 01/08/17 Fely Shaw will [...] test in </= 18 seconds without any guest house manager slips Goal Status: In progress Patient will [...] 8 week(s) to progress toward short and hematology technologist goals. Therapeutic exercises to increase functional mobility [...] PsyD (TeleHealth) [facility] [address], [place] [address] (Wo rk) documented as of this encounter Visit Diagnoses Diagnosis Left-sided muscle weakness Muscle weakness (generalized) Cervical disc disorder with radiculopath y of mid-cervical region Brachial neuritis or radiculitis nos documented in this encounter Care Teams Exchange Architect Relationship Specialty Start Date End Date Susie López APRN PCP - General 05/21/15 06/30/19 documented as of this encounter
--- OUTSIDE RECORDS SUMMARY | 2022-07-25 10:52 | XMS_ITS | Encounter Summary ---
:1960 Author Organization [facility] [place] [address] Care Team Providers Name Role Phone Susie López APRN Primary Care Provider Reason for Visit Consultation (Routine) - Closed Specialty Diagnoses / Procedures Referred By Contact Refer red To Contact Neurology Diagnoses left anterior thigh pain Sammy Cheung MD [facility] Neu[facility] [address] [place] [address] [place] [address] Fax: Referral ID Status Reason Start Date Expiration Date Visits Requ ested Visits Authorized [id number] Closed 08/22/2016 08/22/2017 1 1 Encounter Details Date Type Department Care Team Description 08/26/2016 Procedure visit Neurology at [facility] [place] [facility] MD [place] lumbosacral region [place], [place] CENTER [address] NEUROLOGY DEPT. [phone] [place] [address] Social History Tobacco Use Types Packs/Day Years [...] Sign Reading Time Taken Comments Blood Pressure 126/76 08/26/2016 1:58 PM EST Pulse 85 08/26/2016 1:58 PM EST Temperature - - Respiratory Rate - - Oxygen Saturation - - Inhaled Oxygen Concentration - - Weight 73.6 kg (162 lb 3.2 oz) 08/26/2016 1:58 PM EST Height 172.7 cm (5' 8) 08/26/2016 1:58 PM EST reported Body Mass Index 24.66 08/26/2016 1:58 PM EST documented in this encounter Progress Notes [place] MD - 08/26/2016 2:00 PM EST Fely Shaw is a pleasant 56-year-old female referred for consultation at the request of Dr. Sammy Cheung and Susie López APRN., for evaluation of left leg numbness and tingling that came on after surgery in 2013. She underwent a procedure by Dr. Cheung at the L5-S1 level with subsequent paresthesias in the left leg. There is an uncomfortable feeling to it. Recently, the paresthesias have involved the left groin area as well as the anterolateral thigh. The tingling goes below the knee over the lateral surface of the left leg and then involving the third, fourth and fifth toes. The side of the foot is also involved. Apparently, she underwent an SI joint injection by the [facility] which did nothing. She has had 2 epidural steroid injections, the first of which was somewhat helpful. She has been taking Mobic and Tylenol on a daily basis. She takes 300 mg of Neurontin at bedtime. She did try taking 900 mg 3 times a day which made her feel like a zombie. She does like to exercise with stretching, treadmill workouts and core strengthening. All of these things she thinks helps to some degree. She is a nonsmoker and denies alcohol abuse. Review of systems was unremarkable for any bowel or bladder dysfunction nor any shortness of breath or chest pain. She has no involvement of her right leg. An MRI of the LS-spine shows some minimal degenerative changes and some postsurgical changes that appear to be stable. There is some evidence of enhancing granulation tissue surrounding the transverse left S1 nerve root. There is a grade 1, L4 and L5 anterolisthesis. Patient's family history is noncontributory. She did have some electrical studies performed by Dr. Machado in 2013 which were unremarkable. On exam, the patient is a healthy appearing, pleasant female in no obvious distress. She had some hyperesthesias over the medial, anterior and lateral thigh, and over the anterolateral calf and dorsum of the foot and side of the foot. Her reflexes were normal and symmetric. There were no signs of myelopathy. She had no focal weakness or atrophy. Her gait and stance were normal. Romberg was negative. She underwent some nerve conduction studies/EMG all of which was unremarkable. The patient appears to have some nerve root irritation which is likely more than 1 level. There is evidence of granulation tissue at S1, but perhaps there is some degree of this at L5 as well. Other than what has already been done, I am not sure that further surgical intervention will be of any benefit. I doubt her symptoms are related to any instability of the spine. She does describe a worsening of her symptoms in the left leg when she lies on her right side which I suppose could suggest some degree of instability. The medial thigh hyperesthesiasare hard to explain, but I don't see why she would have entrapment of the ilioinguinal, obturator oriliohypogastric nerves. I suggested that she go up on the dose of the Neurontin to 300 mg to 600 mg 3 times a day. She should continue her exercises. I believe she has a follow up with Dr. Cheung in the near future and perhaps he will have some more input in this regard. All of her questions were answered. Thank you for this consultation. documented in this encounter Plan of Treatment Upcoming Encounters Date Type Specialty Care Team Description 08/07/2022 [facility] Nahid Carl PsyD (TeleHealth) [facility] [address], [place] [address] (Wo rk) documented as of this encounter Visit Diagnoses Diagnosis Radiculopathy of lumbosacral region Thoracic or lumbosacral neuritis or radi culitis, unspecified documented in this encounter Care Teams Machine Cloth Trimmer Relationship Specialty Start Date End Date Susie López APRN PCP - General 05/21/15 06/30/19 documented as of this encounter
--- OUTSIDE RECORDS SUMMARY | 2022-07-25 10:52 | XMS_ITS | Encounter Summary ---
:1960 Author Organization [place] [address] Care Team Providers Name Role Phone Rene, Susie JE Primary Care Provider Encounter Details Date Type Department Care Team Description 12/04/2016 Telephone Spine Center at [facility] [place] [address] Social History Tobacco Use Types Packs/Day Years [...] Miscellaneous Notes Telephone Encounter - Nilda Guerrero LPN - 12/04/2016 3:36 PM EST Fely called today to review her worker comp paperwork. She would like it to reflect her current work situation. 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 She states she has continued weakness to her left hand. She gave example that she can hold a plate without dropping it but not a pot, that she will drop. Reviewed with Dr. Pereira, he recommends a follow up with him to address the continued weakness. Paperwork done and await Dr. Christian signature. Fely is scheduled to see Dr. Giles on 12-12-16. Pt is in agreement withthis plan. documented in this encounter Plan of Treatment Upcoming Encounters Date Type Specialty Care Team Description 08/07/2022 TH Visit [facility] Nahid Carl PsyD (TeleHealth) [facility] [place] [address] (Wo rk) documented as of this encounter Visit Diagnoses Not on filedocumented in this encounter Care Teams Mathematics Education Professor Relationship Specialty Start Date End Date Susie López APRN PCP - General 05/21/15 06/30/19 documented as of this encounter
--- OUTSIDE RECORDS SUMMARY | 2022-07-25 10:52 | XMS_ITS | Encounter Summary ---
:1960 Author Organization [facility] [place] [address] Care Team Providers Name Role Phone Susie López APRN Primary Care Provider Reason for Referral Diagnostic Test (Routine) - Closed Specialty Diagnoses / Procedures Referred By Contact Refer red To Contact Radiology Diagnoses Acute pain of left shoulder Dana Wheatley APRN [facility] Rad Mri Procedures MRI Shoulder wo Contrast Left (Generic) [facility] [place] [address] [place] [address] Referral ID Status Reason Start Date Expiration Date Visits V isits Requested Authorized [id number] Closed Specialty 10/08/2016 10/08/2017 1 1 Service Requested Reason for Visit Diagnostic Test (Routine) - Closed Specialty Diagnoses / Procedures Referred By Contact Refer red To Contact Radiology Diagnoses Acute pain of left shoulder Dana Wheatley APRN [facility] Rad Mri Procedures MRI Shoulder wo Contrast Left (Generic) [facility] [place] [address] [place] [address] Referral ID Status Reason Start Date Expiration Date Visits V isits Requested Authorized [id number] Closed Specialty 10/08/2016 10/08/2017 1 1 Service Requested Encounter Details Date Type Department Care Team Description 10/08/2016 Hospital Encounter MRI at [facility] Kam Singh, Acute pain of left [address] [facility] [address] ORTHOPAEDIC [phone] [place] [address] Social History Tobacco Use Types Packs/Day Years [...] Center Nahid Carl PsyD (TeleHealth) [facility] [address] [place], [place] [address] (Wo rk) documented as of this encounter Procedures Procedure Name Priority Date/Time Associated Diagnosis Comme nts MRI SHOULDER LEFT Routine 10/08/2016 7:23 PM Acute pain of lef t Results for this WO CONTRAST EST shoulder procedure are i n the results section. documented in this encounter Results MRI Shoulder [...] fraying and marginal osteophytes. Kam Singh MD [facility] MRI ORDERABLES documented in this encounter Visit Diagnoses Diagnosis Acute pain of left shoulder documented in this encounter Care Teams Hair Or Beauty Salon Manager Relationship Specialty Start Date End Date Susie López APRN PCP - General 05/21/15 06/30/19 documented as of this encounter
--- OUTSIDE RECORDS SUMMARY | 2022-07-25 10:52 | XMS_ITS | Encounter Summary ---
:1960 Author Organization [facility] [place] [address] Care Team Providers Name Role Phone ReneSusie fleming JE Primary Care Provider Reason for Visit Reason Onset Date Comments Referral 11/27/2016 request Encounter Details Date Type Department Care Team Description 11/27/[address] [facility] Mikaela Griffin Referral (request) Care at [facility] [address] [place] [address] Social History Tobacco Use Types Packs/Day [...] this encounter Miscellaneous Notes Telephone Encounter - Aundrea Griffin - 11/27/2016 10:11 AM EST Fely returning a call from Sumaya. Sumaya was not available, I checked the phone note and relayed to Fely that it was suggested that the referral should come from Sumaya Ramirez in [facility] since she had seen Fely for the fall/injury. Fely will call Sumaya Ramirez's office. Telephone Encounter - Sumaya Wheatley, ZAFAR - 11/27/2016 9:51 AM EST Discussed with Susie López APRN, this is a work comp case, we have not seen Fely for this, it appears Sumaya Singh APRN in [facility] is managing this case. This conversation/referral should most likelycome from [facility]. TC to Fely to discuss, message left. SUMAYA WHEATLEY RN Telephone Encounter - Aundrea Griffin - 11/27/2016 9:12 AM EST Fely called asking for a referral to [facility] Neurology. She had a fall at work, was seen by [facility], has done PT, and now PT thinks there might be something more going on. She can be reached at home on her cell. Thank you. documented in this encounter Plan of Treatment Upcoming Encounters Date Type Specialty Care Team Description 08/07/2022 TH Visit [facility] Nahid Carl PsyD (TeleHealth) [facility] [address], [place] [address] (Wo rk) documented as of this encounter Visit Diagnoses Not on filedocumented in this encounter Care Teams Roller Machine Operator Relationship Specialty Start Date End Date Susie López APRN PCP - General 05/21/15 06/30/19 documented as of this encounter
--- OUTSIDE RECORDS SUMMARY | 2022-07-25 10:52 | XMS_ITS | Encounter Summary ---
:1960 Author Organization [facility] [place] [address] Care Team Providers Name Role Phone ReneSusie flmeing JE Primary Care Provider Encounter Details Date Type Department Care Team Description 01/19/2017 Office Visit Occupational Therapy Carlota Rahman [facility] muscle at [facility] OT weakness [address] [place] [address] PHYSICAL MEDICINE & [place] [address] Social History Tobacco Use Types Packs/Day Years [...] encounter Progress Notes Carlota Rahman, OT - 01/19/2017 8:00 AM EDT OCCUPATIONAL THERAPY TREATMENT NOTE Referral Source: Abel Delvalle MD Next MD Follow-up: PRN Total Treatment time: 63 Minutes Timed Code Treatment Time: 63 minutes OCCUPATIONAL PROFILE: Fely Shaw is a [...] and/or Co-morbidities: 1. 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 Manage transportation needs [...] 0/10 biceps; 0/10 left thumb With Activity: 3-4/10 about scapular, 6010 pain about biceps, 3/10 pain about base of left thumb, left small finger 2/10 pain Relieving factors: medication including tylenol and neurotin, heating pads Special Testing Completed: Positive Froment's sign left Negative Froments sign on the right Negative Wartenberg's sign bilaterally 9 Hole Peg Test RIGHT LEFT LEFT 01/08/17 Trial #1 18 seconds 18 seconds with 3 pillowcase maker slips/ dropped pegs 18 seconds with 1 pillowcase maker slip Mean for age/gender 17.86 seconds 19.48 [...] Abductor digiti minimi 5/5 3/5 3/5 Strength: Line Camera Operator Testing with Dynamometer setting #2 Pinch Testing with Pinch Gauge Right Left 12/25/16 Left 01/08/17 Line Camera Operator setting 2 69.4/66.2/63.7 20.7/16.8/16.6 29.0/29.2/25.9 Line Camera Operator Average 66.4 18 27.96 Line Camera Operator norms for age and gender 61.7 57.3 57.3 [place] 08/08/11 Average: 11 3/3/4 Average: 3.3 5.5/6/5.5 Average: 5.7 3 Pt 13./ Average: 13.5 4//4 Average: 3.3 2/2/2 Average: 2 Tip 4/5/5 Averaged 4.6 0/1/0 Average: 0.3 09/28/.5 Average: 1.2 Women Hand Line Camera Operator Strength in Pounds: Mean (SD) Age [...] Equipment Level of assistance Resistance Repetitions/Time Response Triceps press Unsupported short sit Edge of [...] 0/10 pain Patient demonstrated fatigue with repetition Accelerated elbow extension via bounce pass of therapy ball Unsupported standing Therapy ball Directverbal and visual cues to maximize elbow extension 20 repetitions Patient unable to tolerate chest pass at this time due to shoulder discomfort; pain treated with activity modification to bounce pass UE active assisted ROM via walk walks: shoulder flexion, shoulder abduction standing wall Direct verbal and visual cues for instruction and for completion in pain free range No added resistance 5 repetitions for each exercise with 5 second holds at end range Patient demonstrated limited shoulder flexion, decreasing with fatigue/with repetition to approximately from 90 to about 70 degrees Patient reported discomfort with scapular retraction; pain treated with activity modification Patient demonstrated fatigue with repetition Palmar pinch, lateral pinch, and tip pinch strengthening Supported short sit Theraputty, small coin-sized stones Mod verbal and visual cues for correct completion yellow, light resistance putty 2 sets of 8 repetitions for each exercise Patient benefited from verbal and visual cues to maintain healthy joint positioning Patient benefited from active rest break: palmar stretch between sets UE strengthening: wrist flexion, wrist extension, simulated jar opening, lateral [place]chaca pinch Unsupported stand BTE Verbal and visual cues for correct completion Minimal added resistance: 1-4 inch pounds 30 Repetitions each exercise Stretch into composite wrist/digit extension completed between each set of wrist flexion Patient rated exercise as medium effort with initial reps and hard effort with repetition Line Camera Operator strengthening with calibrated gripper requiring active shoulder external rotation Supported short sit Calibrated gripper, foam wedges Max verbal, visual, and tactile cues for correct completion, cues for neutral wrist positioning 5# of resistance 15 repetitions Patient reported fatigue with repetition Palmar stretch completed after exercise Fine motor coordination with vision occluded Emphasis on finger to palm and palm to finger translatio Supported short sit [place]: medium sized nuts and bolts No added resistance 10 repetitions Patient demonstrated 0 pillowcase maker slips when removing nuts and 3 pillowcase maker slips when reapplying nuts to bolts with use of in hand manipulation Neuromuscular Re-education Position Equipment Level of assistance Repetitions/ Time Response Functional Electrical Stimulation (63692) using Asymmetrical biphasic waveform for activation of lumbricals Intrinsic hand strengthening: Lumbrical Pulls Supported short sit Beige, super soft theraputty Max verbal, visual, and tactile cues for correct completion 8 minutes Patient demonstrated limited abilityto maintain wrist extension at neutral during exercise Patient fatigued with repetition however improved tolerance to resistance noted with use of electrical stimulation as evidenced by fewer pillowcase maker slips today Therapeutic activity: Patient reports need for low [...] today, meeting short term goal. Significantly improved pillowcase maker strength measured via hand held dynamometer noted [...] to maximize functional performance during daily activities. Paraplanner Goals (to be met by discharge): Date [...] exercise program. Goal Status: Met 01/08/17 Fely hSaw will gain 10 degrees of wrist extension [...] test in </= 18 seconds without any pillowcase maker slips Goal Status: In progress Patient will [...] 8 week(s) to progress toward short and terminal supervisor goals. Therapeutic exercises to increase functional mobility [...] (TeleHealth) [facility] [address], [place] [address] (Wo rk) documented as of this encounter Visit Diagnoses Diagnosis Left-sided muscle weakness Muscle weakness (generalized) documented in this encounter Care Teams Career Guidance Counselor Relationship Specialty Start Date End Date Susie López APRN PCP - General 05/21/15 06/30/19 documented as of this encounter
--- OUTSIDE RECORDS SUMMARY | 2022-07-25 10:52 | XMS_ITS | Encounter Summary ---
:1960 Author Organization [facility] Address [address] [place] [address] Care Team Providers Name Role Phone ReneSusie fleming JE Primary Care Provider Encounter Details Date Type Department Care Team Description 12/29/2016 Office Visit Occupational Therapy Carlota Rahman Le ft-sided muscle weakness; at [facility] [address] OT Acute pain of left shoulder; [address] [facility] Biceps rupture, proximal, le ft, sequela; [place] [address] CENTER Cervical disc disorder with radiculopath y of mid-cervical region; [phone] PHYSICAL MEDICINE Neck pain & [place] [address] Social History Tobacco Use Types Packs/Day Years [...] encounter Progress Notes Carlota Rahman, OT - 12/29/2016 8:15 AM EDT OCCUPATIONAL THERAPY TREATMENT NOTE Referral [...] and/or Co-morbidities: 1. Left-sided muscle weakness 2. Acute pain of left shoulder 3. Biceps rupture, proximal, left, sequela 4. Cervical disc disorder with radiculopathy of mid-cervical region 5. 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 Manage transportation needs [...] using the visual analog scale) At Rest: 5/10 biceps With Activity: 8/10 biceps Relieving factors: medication including tyelnol and neurotin, heating pads Special Testing Completed: Positive Froment's sign left Negative Froments sign on the right Negative Wartenberg's sign bilaterally 9 Hole Peg Test RIGHT LEFT Trial #1 18 seconds 18 seconds with 3 keg header slips/ dropped pegs Mean for age/gender 17.86 [...] 3-/5 Abductor digiti minimi 5/5 3/10 Strength: Radiographic Technologist Testing with Dynamometer setting #2 Pinch Testing with Pinch Gauge Right Left Radiographic Technologist setting 2 69.4/66.2/63.7 20.7/16.8/16.6 Radiographic Technologist Average 66.4 18 Radiographic Technologist norms for age and gender 61.7 57.3 [place] 08/08/11 Average: 11 3//4 Average: 3.3 3 Pt 13.5//14 Average: 13.5 4/2/4 Average: 3.3 Tip 4/5/5 Averaged 4.6 0//0 Average: 0.3 Women Hand Radiographic Technologist Strength in Pounds: Mean (SD) Age Right [...] normal hand functions; Tanmay dynamometer) Treatment Today: Kinesiotape applied today using two I bands to facilitate lower trapezius and middle trapezius for improved postural alignment. Patient performed active scapular retraction to tolerance when tape was applied. Patient was instructed in removal techniques in case of skin irritation, increased pain, or general discomfort. Therapeutic exercise Position Equipment Level of assistance Resistance Repetitions/Time Response Pectoralis stretch Unsupported short sit Seated edge of mat Light overpressure none 2 repetitions with 30 second holds Patient reported tenderness to light pressure about shoulder Patient reported stretch in pectoralis muscle Scapular exercises prone Mat table, towel roll Moderate assistance 5-6 repetitions with 3 second holds for each exercise Patient completed scaption, shoulder extension, and modified abduction Patient fatigued quickly resulting in limited repetitions today Targeted therapeutic exercise for Serratus anterior: scapular protraction/retraction to roll ball Unsupported standing Hi/lo table, therapy ball Max verbal, visual, and tactile cues for correct completion No added resistance 10 repetitions Patient demonstrated limited ability to isolated shoulder movement from elbow Triceps kick backs Supported standing Hi/lo table Max verbal and visual cues for correct completion Tactile cues for improved elbow extension to end range Against gravity 10 repetitions Patient demonstrated fatigue with repetition as evidenced by decreased elbow extension against gravity with repetition Intrinsic hand strengthening: Lumbrical Pulls Supported short sit Beige, super soft theraputty Max verbal, visual, and tactile cues for correct completion super soft theraputty 10 repetitions Patient demonstrated frequent keg header slips during exercise completion and poor ability to maintain wrist extension at neutral during exercise Active assisted wrist extension Supported short sit Light weight dowel (<1#), wrist roller Max verbal and visual cues for correct completion No added resistance 10 repetitions Patient demonstrated improved tolerance to active assisted wrist extension with wrist roller over dowel gill today Therapeutic Activity Position Equipment/Environment Level of assistance Repetitions/ Time Response Patient re-educated on role/purpose of ergonomics and work station redesign assessment to ensure proper posture and positioning Supported short sit Patient verbalized understanding Reviewed home program: Therapeutic Exercises: isolated finger extension, gravity eliminated wrist extension/flexion, thumb palmar abduction with care not to hyperextend joints Strengthening Exercises: isometric strengthening of 1st dorsal interossei to facilitate improved CMCstability, finger abduction with beige (super soft) resistive putty, finger adduction with beige (super soft) resistive putty with care to avoid hyperextension at PIP joints, keg header strengthening with beige (super soft) resistive putty with care to avoid hyperextension of DIP joints, lumbrical pulls with beige (super soft) resistive putty with care not to hyperextend the PIP joints Patient verbalized understanding CLINICAL DECISION MAKING: Fely Shaw has pain, [...] test in </= 18 seconds without any keg header slips Goal Status: In progress PLAN: The patient is to be seen 2 time(s) per week, for 8 week(s) to progress toward short and tank terminal gauger goals. Therapeutic exercises to increase functional mobility [...] Center Nahid Carl, Mary (TeleHealth) [facility] [address] [place], [place] [address] (Wo rk) documented as of this encounter Visit Diagnoses Diagnosis Left-sided muscle weakness Muscle weakness (generalized) Acute pain of left shoulder Biceps rupture, proximal, left, sequela Cervical disc disorder with radiculopath y of mid-cervical region Brachial neuritis or radiculitis nos Neck pain Cervicalgia documented in this encounter Care Teams Volunteer Patient Representative Relationship Specialty Start Date End Date Susie López APRN PCP - General 05/21/15 06/30/19 documented as of this encounter
--- OUTSIDE RECORDS SUMMARY | 2022-07-25 10:52 | XMS_ITS | Encounter Summary ---
:1960 Author Organization [facility] [place] [address] Care Team Providers Name Role Phone Rene, Susie JE Primary Care Provider Reason for Visit Reason Onset Date Comments Other 01/23/2017 Encounter Details Date Type Department Care Team Description 01/23/2017 Telephone Spine Center at 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 She continues to work with OT and PT. She saw her PT this morning and he felt that the flare in pain is related to her neck. Above discussed with , he recommends staying at 6 hour days for another 2 weeks, if symptoms are not improving with that she should return for f/u visit. A call was placed to patient, discussed the above. Work note completed and faxed to [facility] [phone]. Doronmarcy f/u if she is not improving, she does have scheduled f/u on 02/11/17. documented in this encounter Plan of Treatment Upcoming Encounters Date Type Specialty Care Team Description 08/07/2022 TH Visit Pain and Spine Center Nahid Carl PsyD (TeleHealth) [facility] [address] [place], [place] [address] (Wo rk) documented as of this encounter Visit Diagnoses Not on filedocumented in this encounter Care Teams Fruit Grader Relationship Specialty Start Date End Date Susie López APRN PCP - General 05/21/15 06/30/19 documented as of this encounter
--- OUTSIDE RECORDS SUMMARY | 2022-07-25 10:52 | XMS_ITS | Encounter Summary ---
:1960 Author Organization [facility] [place] [address] Care Team Providers Name Role Phone Susie López ELECTRIC SYSTEM OPERATOR Primary Care Provider Reason for Visit Reason Onset Date Comments Appointment 11/03/2016 Encounter Details Date Type Department Care Team Description 11/03/2016 Telephone [place] [facility] [place] Singh MD Appointment [facility] [place] [address] ORTHOPAEDIC SURGERY [phone] [place] [id number] (Wo rk) Social History Tobacco Use Types [...] this encounter Miscellaneous Notes Telephone Encounter - Angie Bobby - 11/05/2016 1:34 PM EST Patient scheduled Telephone Encounter - Pili Baltazar - 11/03/2016 9:41 AM EST LM#1 to schedule follow up with Dr Singh in 6 wks for NXR LT SHOULDER PAIN, W/C DOI: 08/22/16-INCREASED PAIN. documented in this encounter Plan of Treatment Upcoming Encounters Date Type Specialty Care Team Description 08/07/2022 TH Visit Pain and Spine Center Nahid Carl, Mary (TeleHealth) [facility] [address] [place], [place] [address] (Wo rk) documented as of this encounter Visit Diagnoses Not on filedocumented in this encounter Care Teams Nuclear Plant Operator Relationship Specialty Start Date End Date Susie López APRN PCP - General 05/21/15 06/30/19 documented as of this encounter
--- OUTSIDE RECORDS SUMMARY | 2022-07-25 10:52 | XMS_ITS | Encounter Summary ---
:1960 Author Organization [facility] [place] [address] Care Team Providers Name Role Phone ErneSusie fleming JE Primary Care Provider Reason for Visit Reason Comments Shoulder Pain Encounter Details Date Type Department Care Team Description 08/26/2016 Office Visit Occupational Medicine Sumaya Singh, Vahe e pain of left at [employer] [facility] [facility] PAPERBACK MACHINE OPERATOR shoulder [facility] [place] [address] OCCUPATIONAL [phone] [place], [place] [address] Social History Tobacco Use Types [...] Sign Reading Time Taken Comments Blood Pressure 150/76 08/26/2016 9:03 AM EST Pulse 85 08/26/2016 9:03 AM EST Temperature - - Respiratory Rate - - Oxygen Saturation - - Inhaled Oxygen Concentration - - Weight 68 kg (150 lb) 08/26/2016 9:03 AM EST Height 172.7 cm (5' 8) 08/26/2016 9:03 AM EST Body Mass Index 22.81 08/26/2016 9:03 AM EST documented in this encounter Progress Notes Sumaya Singh, JE - 08/26/2016 9:00 AM EST Fely Shaw is a 56 y.o. 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 She believe she fell with her left arm extended behind her. She currently is complaining of left anterior shoulder pain and decreased range of motion. She denies a significant history of left shoulder problems in the past. She is here essentially to document this fall. 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 Fely has been at [employer] for many years. Physical exam reveals a well appearing female cradling her left arm with her right. No obvious deformity is appreciated to inspection of her shoulder or upper back. She has no cervical spine pain to palpation, has full painless range of motion to her neck. She localizes tenderness only over the left bicipital groove radiating into the left biceps. No deformity is appreciated. Passive range of motion is near full in all planes but with guarding. The most painful maneuver is internal rotation. She has a negative drop arm. Elevation and extension is to approximately 90 degrees. Commercial Insurance Underwriter are 5/5. Neurosensory is intact to light touch. Distal pulses are 2+. ASSESSMENT: Status post fall, left anterior shoulder pain. PLAN: Fely was advised and shown some gentle stretching and range of motion exercises to perform. She currently is on meloxicam b.i.d. and Tylenol 3 times a day for her chronic back pain, so she will continue that. She was advised on ice for the next 48 hours and then moist heat. She was returned to work with restrictions to include 5 pound lifting, no over shoulder reaching or lifting with her left upper extremity. I will see her back in 1 week to reassess, sooner if problems. She agrees to the plan of care and was returned to work. Patient Active Problem List Diagnosis Code ??? 12/11/10 ARTHROSCOPY KNEE,MENISCECTOMY SINGLE WITH SHAVING OSC /LEFT/LATERAL M25.562 ??? Left knee pain M25.562 ??? Finger sprain S63.619A ??? Lumbar strain S39.012A ??? Lower back pain M54.5 ??? Lumbosacral spondylosis without myelopathy M47.817 . documented in this encounter Plan of Treatment Upcoming Encounters Date Type Specialty Care Team Description 08/07/2022 TH Visit Pain and Spine Center Nahid Carl PsyD (TeleHealth) [facility] [address] [place], [place] [address] (Wo rk) documented as of this encounter Visit Diagnoses Diagnosis Acute pain of left shoulder documented in this encounter Care Teams Manager Supplier Relationship Specialty Start Date End Date Susie López APRN PCP - General 05/21/15 06/30/19 documented as of this encounter
--- OUTSIDE RECORDS SUMMARY | 2022-07-25 10:52 | XMS_ITS | Encounter Summary ---
:1960 Author Organization [facility] Address [address] [place] [address] Care Team Providers Name Role Phone ReneSusie fleming JE Primary Care Provider Encounter Details Date Type Department Care Team Description 10/03/2016 Hospital Encounter [facility]Ray at [facility] Christ Simpson, Left shoulder pain, [address] YOUNG unspecified [place], [place] [facility] chronicity [id number] CENTER [phone] [place] [address] Social History Tobacco Use Types Packs/Day Years [...] Carl PsyD (TeleHealth) [facility] [address] [place], [place] [address] (Wo rk) documented as of this encounter Procedures Procedure Name Priority Date/Time Associated Diagnosis Comme nts XR SHOULDER LEFT Routine 10/03/2016 5:05 PM Left shoulder pain , Results for this EST unspecified procedure are i n chronicity the results section. documented in this encounter Results XR Shoulder Left (Generic) (10/03/2016 5:05 PM EST) Anatomical Region Laterality Modality Shoulder Left Digital Radiography Specimen (Source) Anatomical Location Collection Method / Collectio n Time Received Time / Laterality Volume Impressions 10/03/2016 5:23 PM EST Glenohumeral arthropathy. No acute injury. Narrative 10/03/2016 5:23 PM EST EXAMINATION: XR SHOULDER LEFT (GENERIC) CLINICAL HISTORY: LEFT SHOULDER PAIN TECHNIQUE: 4 views of the left shoulder COMPARISON: None FINDINGS: No fracture. No dislocation. At the glenoid surface there is a rim of osteophytes at the posterior and inferior margin tear additional osteophy anibal are seen at the humeral head. The joint space however is not narrowed and the alignment is normal. The acromium is slightly curved. A small subacromial spur is present. The chromic clavicular joint is normal. No periarticular calcifications. Procedure Note Royce Anna MD - 10/03/2016Forma tting of this note might be different from the original. EXAMINATION: XR SHOULDER LEFT (GENERIC) CLINICAL HISTORY: LEFT SHOULDER PAIN TECHNIQUE: 4 views of the left shoulder COMPARISON: None FINDINGS: No fracture. No dislocation. At the glenoid surface there is a rim of osteophytes at the posterior and inferior margin tear additional osteophy anibal are seen at the humeral head. The joint space however is not narrowed and the alignment is normal. The acromium is slightly curved. A small subacromial spur is present. The chromic clavicular joint is normal. No periarticular calcifications. IMPRESSION Glenohumeral arthropathy. No acute injury. Christ Simpson MD IMG DX ORDERABLES documented in this encounter Visit Diagnoses Diagnosis Left shoulder pain, unspecified chronici ty documented in this encounter Care Teams Story Teller Relationship Specialty Start Date End Date Susie López APRN PCP - General 05/21/15 06/30/19 documented as of this encounter
--- OUTSIDE RECORDS SUMMARY | 2022-07-25 10:52 | XMS_ITS | Encounter Summary ---
:1960 Author Organization [facility] [place] [address] Care Team Providers Name Role Phone Susie López JE Primary Care Provider Encounter Details Date Type Department Care Team Description 10/27/2016 Telephone Orthopaedics at [facility] Kam Singh MD [facility] [place] [address] ORTHOPAEDIC SURGERY [phone] [place] [phone] (Wo rk) Social History Tobacco Use Types [...] Notes Telephone Encounter - Angie Bobby - 10/27/2016 11:22 AM EST Patient scheduled Telephone Encounter - Ana Hughes RN - 10/27/2016 10:10 AM EST Patient is calling from [place]. She states she had sudden onset of pain in her left shoulder and went to urgent care. She was given Vicodin and a muscle relaxant and told to follow up with ortho whenshe returns to the area. Recent history of biceps tendon rupture. Please call her on her cell [phone] to [facility] in for follow up. documented in this encounter Plan of Treatment Upcoming Encounters Date Type Specialty Care Team Description 08/07/2022 TH Visit Pain and Spine Center Nahid Carl PsyD (TeleHealth) [facility] [address] [place], [place] [address] (Wo rk) documented as of this encounter Visit Diagnoses Not on filedocumented in this encounter Care Teams Instructional Technology Specialist Relationship Specialty Start Date End Date Susie López APRN PCP - General 05/21/15 06/30/19 documented as of this encounter
--- OUTSIDE RECORDS SUMMARY | 2022-07-25 10:52 | XMS_ITS | Encounter Summary ---
:1960 Author Organization [facility] [place] [address] Care Team Providers Name Role Phone Rene, Susie JE Primary Care Provider Reason for Referral Occupational Therapy ([place]) - Specialty Diagnoses / Procedures Referred By Contact Refer red To Contact Occupational Therapy Diagnoses Left arm weakness Abel Delvalle MD [facility] [address] [place] [phone] Fax: Referral ID Status Reason Start Date Expiration Date Visits V isits Requested Authorized [id number] Evaluate and 12/22/2016 12/22/2017 12 12 Treat Encounter Details Date Type Department Care Team Description 12/22/2016 Orders Only Spine Center at [facility] non Dominga Funk, Left arm weakness [facility] [place] [address] Social History Tobacco Use Types Packs/Day [...] and Spine Center Nahid Carl PsyD (TeleHealth) [facility] [address] [place], [place] [address] (Wo rk) Scheduled Referrals Name Type Priority Associated Order Schedule Diagnoses Referral to Outpatient Referral Routine Left arm weakness Ord ered: Occupational Therapy 017 documented as of this encounter Visit Diagnoses Diagnosis Left arm weakness Other musculoskeletal symptoms referable to limbs documented in this encounter Care Teams Instrumentation Specialist Relationship Specialty Start Date End Date Susie López APRN PCP - General 05/21/15 06/30/19 documented as of this encounter
--- OUTSIDE RECORDS SUMMARY | 2022-07-25 10:52 | XMS_ITS | Encounter Summary ---
:1960 Author Organization [facility] [place] [address] Care Team Providers Name Role Phone Rene Susie WOOTEN Primary Care Provider Encounter Details Date Type Department Care Team Description 09/18/2016 Abstract Madelin Toussaint Conversion Apd Conversion, Flowsheet Results Provider, [address] [place] [address] Social History Tobacco Use Types Packs/Day [...] Concentration Weight 71 kg (156 lb 8.4 09/18/2016 9:30 Sourced from A PD oz) AM EST Conversion Height 173 cm (5' 8.11) 09/18/2016 9:30 Sourced from A PD AM EST Conversion Body Mass Index 23.72 09/18/2016 9:30 AM EST documented in this encounter Plan of Treatment Upcoming Encounters Date Type Specialty Care Team Description 08/07/2022 TH Visit Pain and Spine Center Nahid Carl PsyD (TeleHealth) [facility] [address] [place], [place] [address] (Wo rk) documented as of this encounter Visit Diagnoses Not on filedocumented in this encounter Care Teams Bingo Checker Relationship Specialty Start Date End Date Susie López APRN PCP - General 05/21/15 06/30/19 documented as of this encounter
--- OUTSIDE RECORDS SUMMARY | 2022-07-25 10:52 | XMS_ITS | Encounter Summary ---
:1960 Author Organization [facility] [place] [address] Care Team Providers Name Role Phone Susie López JE Primary Care Provider Reason for Visit Reason Onset Date Comments Other 11/27/2016 Encounter Details Date Type Department Care Team Description 11/27/2016 Telephone [facility]edics [place] [facility] [place] Singh MD [facility] [place] [address] ORTHOPAEDIC SURGERY [phone] [place], [place] [address] (Wo rk) Social History Tobacco [...] encounter Miscellaneous Notes Telephone Encounter - Aundrea Sheikh RN - 11/28/2016 11:02 AM EST Spoke with patient who is trying to get referral to neurology. Patient seen by Dr Singh for bicep ruptur issues only and was refered to spine to Dr. Delvalle for hercervical radiculopathy. Patient indicates her workmans comp needs a referral and cannot self refer . She would like this at [facility] Patient will discuss with workmans comp . Telephone Encounter - Corina Gregg - 11/27/2016 3:16 PM EST Fely would like Dr. Singh to refer her to the [facility] Neurology at [facility] because her physical therapist thinks she should have a second opinion for possible nerve impingement. She has also been seenby Kari. This is a work comp claim and needs to have a referral from us. Please fax the referral to [phone]. Please call her at her mobile [phone] when this has been completed or if you have any further questions. documented in this encounter Plan of Treatment Upcoming Encounters Date Type Specialty Care Team Description 08/07/2022 TH Visit Pain and Spine Center Nahid Carl PsyD (TeleHealth) [facility] [address] [place], [place] [address] (Wo rk) documented as of this encounter Visit Diagnoses Not on filedocumented in this encounter Care Teams International Project Manager Relationship Specialty Start Date End Date Susie López APRN PCP - General 05/21/15 06/30/19 documented as of this encounter
--- OUTSIDE RECORDS SUMMARY | 2022-07-25 10:52 | XMS_ITS | Encounter Summary ---
:1960 Author Organization [place] [address] Care Team Providers Name Role Phone ReneSusie fleming JE Primary Care Provider Encounter Details Date Type Department Care Team Description 02/19/2017 Office Visit Occupational Therapy Carlota Rahman [facility] at [facility] OT weakness [address] [place] [address] PHYSICAL MEDICINE & [place] [address] Social History Tobacco Use Types Packs/Day Years [...] encounter Progress Notes Carlota Rahman, SOHA - 02/19/2017 9:30 AM EDT OCCUPATIONAL THERAPY TREATMENT NOTE Referral [...] and/or Co-morbidities: 1. 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 Patient previously [...] difficulty 10/10) Activity At Evaluation 01/08/17 02/04/17 02/19/17 1.) Donning shirts overhead 3 9 6 10 2.) Washing hair 5 5 5 9 3.) sewing 7 6 4 7 4.) Cooking; handling heavy pots and pans 3 4 4 6 5.) opening containers 5 5 5 8 6.) lifting/sliding/pushing/pulling at work >/= 50 1 1 2 5 Average Score: 4 5.8 5.2 7.5 Disabilities of the Arm, Shoulder, and Hand [...] your head Severe difficulty 7. Do heavy tv production assistant (eg wash mcgowan, wash floors) Moderate difficulty [...] move your arm freely (eg playing frisbee, bad[employer] Sports [place], etc) Severe difficulty 20. Manage transportation needs [...] using the visual analog scale) At Rest: 10/07 pain With Activity: 11/07 pain Relieving factors: medication including tylenol and neurotin, heating pads, activity modification Special Testing Completed: Positive Froment's sign left Negative Froments sign on the right Negative Wartenberg's sign bilaterally 9 Hole Peg Test RIGHT LEFT LEFT 01/08/17 LEFT 02/04/17 Left 02/19/17 Trial #1 18 seconds 18 seconds with 3 soaker hides slips/ dropped pegs 18 seconds with 1 soaker hides slip 18 seconds with 1 soaker hides slip 18 seconds without soaker hides slip Mean for age/gender 17.86 seconds 19.48 [...] Abductor digiti minimi 5/5 3/5 3/5 Strength: Chief Substation Operator Testing with Dynamometer setting #2 Pinch Testing with Pinch Gauge Right Left 12/25/16 Left 01/08/17 Left 01/26/17 Left 01/29/17 Left 02/04/17 Left 02/12/17 Left 02/19/17 Chief Substation Operator setting 2 69.4/66.2/63.7 20.7/16.8/16.6 29.0/29.2/25.9 16.3/11.1/11.5 7/10 pain back of arm 12.8/9.3/13.3 4/10 13.4/14.4/11.8 0/10 pain 8/10.3/7.3 22.1/20.5/22 Chief Substation Operator Average 66.4 18 27.96 12.9 11.8 13.2 8.6 21.5 Chief Substation Operator norms for age and gender 61.7 57.3 57.3 57.3 57.3 57.3 [place] 08/08/11 Average: 11 3/3/4 Average: 3.3 5.5/6/5.5 Average: 5.7 5/5/5 Average: 5 5/4/5 Average: 4.7 3/2.5/3 5/6/5 3 Pt 13.5/13/14 Average: 13.5 4/2/4 Average: 3.3 2/2/2 Average: 2 3//3 Average: 3 3/2/2 Average: 2.3 3/2/2 3/3/3.5 Tip 4/5/5 Averaged 4.6 0/1/0 Average: 0.3 1/1.5 Average: 1.2 1//1.5 Average: 1.5 2/2/2 Average: 2 1//2 2/2/2 Average 2 Women Hand Chief Substation Operator Strength in Pounds: Mean (SD) Age [...] 1366 mean and 1312 women, community based [place] population, healthy adults, Tanmay hand dynamometer); (Edward Sharp et al, 2008; n = 224; mean age = 75.4 (6.8); good health with normal hand functions; Tanmay dynamometer) Treatment Today: Reassessed soaker hides and pinch strength; please see above for detailed results Therapeutic [...] extension. Ulnar nerve glides completed after exercise UE strengthening: cable column walk outs dynamic standing Verbal, visual, and tactile cues for upright posture/alignment No resistance 1 sets of 8 repetitions with 2.5# of resistance Patient benefited from cues for correct alignment Patient demonstrated improved activity tolerance reporting 0/10 pain with exercise completion CLINICAL DECISION MAKING: Fely demonstrated improved activity tolerance with reports of decreased shoulder pain throughout session. Significantly improved left UE soaker hides strength noted with reassessmenttoday however soaker hides remains decreased from previous measures completed on 01/08/17, prior to increasedshifts at work. Fely Shaw has fair to good potential for gains with therapy with identified needs for skilled therapy for treatment of deficits noted during evaluation today, to maximize functionalperformance during daily activities. Prison Goals (to be met by discharge): Date [...] test in </= 18 seconds without any soaker hides slips Goal Status: In progress Patient will [...] week(s) to progress toward short and terminal clerk goals. Therapeutic exercises to increase functional mobility [...] and Spine Center Nahid Carl PsyD (TeleHealth) [facility] [place] [address] (Wo rk) documented as of this encounter Visit Diagnoses Diagnosis Left-sided muscle weakness Muscle weakness (generalized) documented in this encounter Care Teams Sales And Service Change Leader Relationship Specialty Start Date End Date Susie López APRN PCP - General 05/21/15 06/30/19 documented as of this encounter
--- OUTSIDE RECORDS SUMMARY | 2022-07-25 10:52 | XMS_ITS | Encounter Summary ---
:1960 Author Organization [place] [address] Care Team Providers Name Role Phone Susie López JE Primary Care Provider Encounter Details Date Type Department Care Team Description 12/22/2016 Notes Only [facility] non Dominga Funk, [place] [address] Social History Tobacco Use Types Packs/Day Years [...] encounter Progress Notes Dominga Funk RN - 12/22/2016 6:09 PM EDT Staff message sent to [place] schedulers requesting time sensitive Spine OT eval with Tawanna arranged to address left UE weakness, as requested by Dr Delvalle based on communications between he and Dr Woods. Dr Delvalle has scheduled FU 12/26/16. documented in this encounter Plan of Treatment Upcoming Encounters Date Type Specialty Care Team Description 08/07/2022 TH Visit [facility] Nahid Carl PsyD (TeleHealth) [facility] [place] [address] (Wo rk) documented as of this encounter Visit Diagnoses Not on filedocumented in this encounter Care Teams Educational Fundraising Director Relationship Specialty Start Date End Date Susie López APRN PCP - General 05/21/15 06/30/19 documented as of this encounter
--- OUTSIDE RECORDS SUMMARY | 2022-07-25 10:52 | XMS_ITS | Encounter Summary ---
:1960 Author Organization [facility] [place] [address] Care Team Providers Name Role Phone Susie López APRN Primary Care Provider Reason for Referral Physical Therapy (Routine) - Closed Specialty Diagnoses / Procedures Referred By Contact Refer red To Contact Physical Therapy Diagnoses Acute pain of left shoulder Sumaya Singh APRN Physical Therapy, [facility]id [facility] OCCUPATIONAL MEDICIN [address] [place] [address] [place] [address] Fax: Referral ID Status Reason Start Date Expiration Date Visits V isits Requested Authorized [id number] Closed Evaluate and 09/03/2016 03/02/2017 12 12 Treat Reason for Visit Reason Comments Pain In Limb Encounter Details Date Type Department Care Team Description 09/03/2016 Office Visit Occupational Medicine Sumaya Singh Acut e pain of left at [employer] [employer] [facility] PROTECTIVE OFFICER shoulder [facility] [place] [address] OCCUPATIONAL [phone] [place], [place] [address] Social History Tobacco Use Types [...] Sign Reading Time Taken Comments Blood Pressure 137/68 09/03/2016 1:28 PM EST Pulse 71 09/03/2016 1:28 PM EST Temperature - - Respiratory Rate - - Oxygen Saturation - - Inhaled Oxygen Concentration - - Weight 72.1 kg (159 lb) 09/03/2016 1:28 PM EST Height 172.7 cm (5' 8) 09/03/2016 1:28 PM EST Body Mass Index 24.18 09/03/2016 1:28 PM EST documented in this encounter Progress Notes Sumaya Singh, PROTECTIVE OFFICER - 09/03/2016 1:30 PM EST Fely Shaw is a 56 y.o. female who presents to [facility] for a re-check of her left anterior shoulder pain ?? Employer: [employer] [facility] DOI: 08/26/2016 Work Status: Alternate duty Intreval Hx: Overall, Fely feels that she is improving, but continues to complain of discomfort in her left deltoid area. When not moving the left upper extremity, she is pain free. Pain is aggravated with forward reaching and elevation. She has been working at a modified capacity, taking her NSAIDs as directed, and otherwise has been trying to range the left arm but finds that painful. PHYSICAL EXAM: Reveals a well-appearing female. She vocalizes tenderness over the left uhljrtd-mqekfqo-siqhr area only. Range of motion is limited to approximately 100 degrees in flexion and approximately 100 degrees in elevation and with a painful arc. She has decreased strength with drop arm test but is able to hold it, albeit uncomfortably. Skin is warm and dry. Distal pulses are 2+. ASSESSMENT: Left upper extremity pain, possible rotator cuff injury. PLAN: Fely was referred to [facility] Physical Therapy and will follow up with me in one month, sooner if better or worse. She does think that the cause for her fall was her chronic left foot numbness, which has caused her to have trips and falls in the past. Regardless, she agrees to the plan of care and was discharged. documented in this encounter Plan of Treatment Upcoming Encounters Date Type Specialty Care Team Description 08/07/2022 TH Visit [facility] Nahid Carl PsyD (TeleHealth) [facility] [address] [place], [place] [address] (Wo rk) Scheduled Referrals Name Type Priority Associated Diagnoses Order S chedule Referral to Outpatient Referral Routine Acute pain of left Or dered: Physical Therapy shoulder 09/03/2016 documented as of this encounter Visit Diagnoses Diagnosis Acute pain of left shoulder documented in this encounter Care Teams Power Press Supervisor Relationship Specialty Start Date End Date Susie López APRN PCP - General 05/21/15 06/30/19 documented as of this encounter
--- OUTSIDE RECORDS SUMMARY | 2022-07-25 10:52 | XMS_ITS | Encounter Summary ---
:1960 Author Organization [facility] Address [facility] [place] [address] Care Team Providers Name Role Phone Rene Susie JE Primary Care Provider Encounter Details Date Type Department Care Team Description 09/08/2016 Hospital Encounter Mammography at [facility] Dr Moncho Temporary Encounter for [facility] screening [place] [address] Social History Tobacco Use Types Packs/Day Years [...] Spine Center Nahid Carl PsyD (TeleHealth) [facility] [address] [place], [place] [address] (Wo rk) documented as of this encounter Procedures Procedure Name Priority Date/Time Associated Diagnosis Comme nts MAMMO SCREENING CAD Routine 09/08/2016 11:05 Encounter for Res ults for this AND SHERMAN BILATERAL AM EST screening for procedur e are in osteoporosis the results section. documented in this encounter Results Mammo Screen CAD and Sherman Bilat (Generic) (09/08/2016 11:05 AM EST) Anatomical Region Laterality Modality Breast Bilateral Mammography Specimen (Source) Anatomical Location Collection Method / Collectio n Time Received Time / Laterality Volume Narrative 09/08/2016 11:31 AM EST BILATERAL MAMMOGRAPHY REASON FOR EXAM: Screening TECHNIQUE: CC and MLO views were obtaine d of each breast using standard 2-D mammography as well as 3-D tomosynth esis. Computer aided detection was used. This is compared with prior images . FINDINGS: The breasts are extremely dens e, which lowers the sensitivity of mammography. There are no suspicious evert rocalcifications, masses, or areas of distortion. The pattern is stable. CONCLUSION: No mammographic evidence of malignancy. RECOMMENDATION: The [employer] and The Society of [...] Breast Imaging Center. BIRADS CATEGORY 1: NEGATIVE Dr [place] MAMMO ORDERABLES documented in this encounter Visit Diagnoses Diagnosis Encounter for screening for osteoporosis Special screening for osteoporosis documented in this encounter Care Teams Customs Inspector Relationship Specialty Start Date End Date Susie López APRN PCP - General 05/21/15 06/30/19 documented as of this encounter
--- OUTSIDE RECORDS SUMMARY | 2022-07-25 10:52 | XMS_ITS | Encounter Summary ---
:1960 Author Organization [facility] [place] [address] Care Team Providers Name Role Phone Rene, Susie JE Primary Care Provider Reason for Visit Consultation (Routine) - Closed Specialty Diagnoses / Procedures Referred By Contact Refer red To Contact Neurology Diagnoses Left arm pain Abel Delvalle MD [facility] Neurology 3c [facility] [place] [address] [place] [address] Referral ID Status Reason Start Date Expiration Date Visits V isits Requested Authorized [id number] Closed Consult, 12/12/2016 12/12/2017 1 1 Test & Treat Encounter Details Date Type Department Care Team Description 12/16/2016 Procedure visit Neurology [place] [facility] [place] Left arm pain; [facility] MD [place] Paresthesia of left arm [place], [place] CENTER [address] NEUROLOGY DEPT. [phone] [place], [place] [address] Social History Tobacco Use Types [...] Sign Reading Time Taken Comments Blood Pressure 137/67 12/16/2016 12:48 PM EDT Pulse 97 12/16/2016 12:48 PM EDT Temperature - - Respiratory Rate - - Oxygen Saturation - - Inhaled Oxygen Concentration - - Weight 75.1 kg (165 lb 9.6 oz) 12/16/2016 12:48 PM EDT Height 172.7 cm (5' 8) 12/16/2016 12:48 PM EDT reporte d Body Mass Index 25.18 12/16/2016 12:48 PM EDT documented in this encounter Progress Notes Delta Woods MD - 12/16/2016 1:00 PM EDT Fely Shaw referred for EDX studies by Abel Delvalle MD [facility] [place] [address] to look for evidence of cervical radiculopathy vs. entrapment neuropathy. Report scanned into EDH. All results are normal. documented in this encounter Plan of Treatment Upcoming Encounters Date Type Specialty Care Team Description 08/07/2022 TH Visit [facility] Nahid Carl PsyD (TeleHealth) [facility] er [place] [address] (Wo rk) Scheduled Referrals Name Type Priority Associated Diagnoses Order S chedule Referral to Outpatient Referral Routine Left arm pain Ordered : Neurology 12/12/2016 documented as of this encounter Visit Diagnoses Diagnosis Left arm pain Pain in limb Paresthesia of left arm Disturbance of skin sensation documented in this encounter Care Teams Repair Coil Winder Relationship Specialty Start Date End Date Susie López APRN PCP - General 05/21/15 06/30/19 documented as of this encounter
--- OUTSIDE RECORDS SUMMARY | 2022-07-25 10:52 | XMS_ITS | Encounter Summary ---
:1960 Author Organization [facility] [place] [address] Care Team Providers Name Role Phone Susie López APRN Primary Care Provider Reason for Referral Consultation (Routine) - Closed Specialty Diagnoses / Procedures Referred By Contact Refer red To Contact Orthopaedics Diagnoses Acute pain of left shoulder Sumaya Singh APRN [facility] [address] [place] [address] [place] [address] [place] [address] Referral ID Status Reason Start Date Expiration Date Visits V isits Requested Authorized [id number] Closed Consult, 10/01/2016 10/01/2017 1 1 Test & Treat Scheduling Instructions [facility] Reason for Visit Reason Comments Pain In Limb Encounter Details Date Type Department Care Team Description 10/01/2016 Office Visit Occupational Medicine Sumaya Singh [facility]ut e [facility] [place] [address] OCCUPATIONAL [phone] MEDICINE [place], [place] [address] Social History Tobacco Use Types [...] Sign Reading Time Taken Comments Blood Pressure 148/74 10/01/2016 11:29 AM EST Pulse 79 10/01/2016 11:29 AM EST Temperature - - Respiratory Rate - - Oxygen Saturation - - Inhaled Oxygen Concentration - - Weight 71.2 kg (157 lb) 10/01/2016 11:29 AM EST Height 172.7 cm (5' 8) 10/01/2016 11:29 AM EST Body Mass Index 23.87 10/01/2016 11:29 AM EST documented in this encounter Progress Notes Sumaya Singh APRN - 10/01/2016 11:30 AM EST Fely Shaw is a 56 y.o. female who presents to [facility] for a re-check of her left anterior shoulder pain ? Employer: [employer] Radiology DOI: 08/26/2016 Work Status: Alternate duty Interval hx: Not really improving; she continues to report intermittent left deltoid muscle pain which radiates down from her left anterior shoulder and continued decreased ROM. Sx are aggravated with left UE rotation and gripping. She has been followed by Karri PT in [facility] where modalities have included E-stim and massage. I have requested his notes. She reports no improvement in her ROM. Concern now is for a possible rotator cuff. She has been accommodated and is working in a modified capacity with no concerns in Radiology. O: Pleasant female. Occasionally cradles her left arm with her right. ROM remain limited in all planes: elevation to ~ 100 degrees, flexion to ~ 120 degrees, painful arc. Skin warm and dry, 2+ distal pulses. A: Left shoulder pain, r/o rotator cuff injury P: Ortho referral made for evaluation and treatment. I will manage the Workability aspect of this case. I will consider d/c'ing PT if no benefits are being made. Fely agrees to the plan of care and was RTW. documented in this encounter Plan of Treatment Upcoming Encounters Date Type Specialty Care Team Description 08/07/2022 TH Visit [facility] Nahid Carl PsyD (TeleHealth) [facility] [address] [place], [place] [address] (Wo rk) Scheduled Referrals Name Type Priority Associated Order Schedule Diagnoses Referral to Outpatient Referral Routine Acute pain of left Or dered: Orthopaedics shoulder 10/01/2016 documented as of this encounter Visit Diagnoses Diagnosis Acute pain of left shoulder documented in this encounter Care Teams Gps Field Data Collector Relationship Specialty Start Date End Date Susie López APRN PCP - General 05/21/15 06/30/19 documented as of this encounter
--- OUTSIDE RECORDS SUMMARY | 2022-07-25 10:52 | XMS_ITS | Encounter Summary ---
:1960 Author Organization [facility] Address [address] [place] [address] Care Team Providers Name Role Phone ReneSusie fleming JE Primary Care Provider Encounter Details Date Type Department Care Team Description 12/30/2016 Office Visit Occupational Therapy Carlota Rahman Le ft-sided muscle weakness; at [facility] OT Cervical disc disorder with radiculopath y of mid-cervical region; [address] [facility] Neck pain; [place] [address] [facility]ENTER Biceps rupture, proximal, left, sequela; [phone] PHYSICAL MEDICINE Acute pain of left shoulder & [place] [address] Social History Tobacco Use Types Packs/Day Years [...] encounter Progress Notes Carlota Rahman, OT - 12/30/2016 9:30 AM EDT OCCUPATIONAL THERAPY TREATMENT NOTE [...] disc disorder with radiculopathy of mid-cervical region 3. Neck pain 4. Biceps rupture, proximal, left, sequela 5. 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 Patient previously worked [...] your head Severe difficulty 7. 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 Manage transportation needs [...] scale) At Rest: 0/10 biceps With Activity: 2-3/10 biceps Relieving factors: medication including tylenol and neurotin, heating pads Special Testing Completed: Positive Froment's sign left Negative Froments sign on the right Negative Wartenberg's sign bilaterally 9 Hole Peg Test RIGHT LEFT Trial #1 18 seconds 18 seconds with 3 manufacturing accountant slips/ dropped pegs Mean for age/gender 17.86 [...] 3-/5 Abductor digiti minimi 5/5 3/10 Strength: Blender Helper Testing with Dynamometer setting #2 Pinch Testing with Pinch Gauge Right Left Blender Helper setting 2 69.4/66.2/63.7 20.7/16.8/16.6 Blender Helper Average 66.4 18 Blender Helper norms for age and gender 61.7 57.3 [place] 08/08/11 Average: 11 3/4 Average: 3.3 3 Pt 13.5//14 Average: 13.5 4/2/4 Average: 3.3 Tip 4/5/5 Averaged 4.6 0//0 Average: 0.3 Women Hand Blender Helper Strength in Pounds: Mean (SD) Age Right [...] 1366 mean and 1312 women, community based [place] population, healthy adults, Tanmay hand dynamometer); (Edward Sharp et al, 2008; n = 224; mean age = 75.4 (6.8); good health with normal hand functions; Tanmay dynamometer) Treatment Today: Kinesiotape left in place from prior treatment session of two I bands to facilitate lower trapezius and middle trapezius for improved postural alignment. Patient reports good tolerance to tape in placeand decreased pain today. Patient was instructed in removal techniques in case of skin irritation, increased pain, or general discomfort. Therapeutic exercise Position Equipment Level of assistance Resistance Repetitions/Time Response Intrinsic hand strengthening: finger abduction and adduction Supported short sit Beige, super soft theraputty Max verbal, visual cues for correct completion super soft theraputty 10 repetitions for each exercise Patient benefited from verbal and visual cues to maintain healthy joint positioning Intrinsic hand strengthening: Lumbrical Pulls Supported short sit Beige, super soft theraputty, yellow theraband with built up foam manufacturing accountant Max verbal, visual, and tactile cues for correct completion super soft theraputty 10 repetitions Patient demonstrated frequent manufacturing accountant slips during exercise completion and poor ability to maintain wrist extension at neutral during exercise Lateral, palmar, and tip to tip pinch strengthening Supported short sit Beige, super soft theraputty, velcro board Max verbal, visual, and tactile cues for correct completion, cues for neutral wrist positioning super soft theraputty 10- 15 repetitions for each exercise Patient demonstrated limited strength prompting down grade from simulated tool use on Velcro board to beige putty Patient benefited from verbal and visual cues to maintain healthy joint positioning Blender Helper strengthening with calibrated gripper requiring active shoulder external rotation Supported short sit Calibrated gripper, foam wedges Max verbal, visual, and tactile cues for correct completion, cues for neutral wrist positioning 5# of resistance 15 repetitions Patient reported fatigue with repetition Palmar stretch completed after exercise Active assisted wrist extension Supported short sit Light weight dowel (<1#), wrist roller Max verbal and visual cues for correct completion No added resistance 10 repetitions Patient demonstrated improved tolerance to active assisted wrist extension against gravity transitioning from wrist roller to use of dowel gill today Attempted active wrist extension with light weight dowel and string however patient fatigued quicklyas evidenced by decreased wrist extension with repetition and reported discomfort about volar aspectof wrist Therapeutic Activity Position Equipment/Environment Level of assistance [...] care to avoid hyperextension at PIP joints, manufacturing accountant strengthening with beige (super soft) resistive putty with care to avoid hyperextension of DIP joints, lumbrical pulls with beige (super soft) resistive putty with care not to hyperextend the PIP joints Patient verbalized understanding CLINICAL DECISION MAKING: Fely reports significant reduction in pain today. Fely Shaw has pain,limited ROM, limited strength, limited coordination, and paresthesias causing functional deficits inADL/IADL performance. Please see above, PSFS and DASH for specific functional deficits. Fely Shaw is able to demonstrate home exercises with written instructions provided. Fely Shaw has fair togood potential for gains with therapy with identified needs for skilled therapy for treatment of deficits noted during evaluation today, to maximize functional performance during daily activities. Secret Code Expert Goals (to be met by discharge): Date [...] test in </= 18 seconds without any manufacturing accountant slips Goal Status: In progress PLAN: The patient is to be seen 2 time(s) per week, for 8 week(s) to progress toward short and alf goals. Therapeutic exercises to increase functional mobility [...] Spine Center Nahid Carl PsyD (TeleHealth) [facility] [address] [place], [place] [address] (Wo rk) documented as of this encounter Visit Diagnoses Diagnosis Left-sided muscle weakness Muscle weakness (generalized) Cervical disc disorder with radiculopath y of mid-cervical region Brachial neuritis or radiculitis nos Neck pain Cervicalgia Biceps rupture, proximal, left, sequela Acute pain of left shoulder documented in this encounter Care Teams Epidemiologist Relationship Specialty Start Date End Date Susie López APRN PCP - General 05/21/15 06/30/19 documented as of this encounter
--- OUTSIDE RECORDS SUMMARY | 2022-07-25 10:52 | XMS_ITS | Encounter Summary ---
:1960 Author Organization [facility] [place] [address] Care Team Providers Name Role Phone Rene, Susie JE Primary Care Provider Reason for Visit Reason Comments Neck Pain Consultation (Routine) - Closed Specialty Diagnoses / Procedures Referred By Contact Refer red To Contact Orthopaedics Diagnoses Neck pain Kari Bender PA [facility] [place] [address] [place] [address] Referral ID Status Reason Start Date Expiration Date Visits V isits Requested Authorized [id number] Closed Consult, 10/30/2016 10/30/2017 1 1 Test & Treat Encounter Details Date Type Department Care Team Description 10/30/2016 Office Visit [place] [place] [facility] [place] [place] l disc disorder Amanda YOUNG with radiculopathy of [facility] [address] [place], [place] [facility] [address] [place] [address] [phone] Social History Tobacco Use Types Packs/Day Years [...] encounter Progress Notes Abel Delvalle MD - 10/30/2016 1:00 PM EST CLARIFICATION NEEDED: JOMAR López, JE Singh, JE Occupational Medicine Dr. Doctors: I had the pleasure of this patient for surgical consultation in the [facility]. DIAGNOSES: 1. Cervical spondylosis with left upper extremity radiculopathy in a C7,C8 NR distribution with left interosseous weakness and wrist flexion weakness. 2. Right hand dominant. 3. Worker's comp injury associated with a slip and fall in July. 4. Left rotator cuff and proximal biceps rupture, treated non-operatively. Spine procedures include a lumbar decompression by Dr. Cheung in the remote past. No prior history of cervical surgery. RISK FACTORS FOR SPINE SURGERY: BMI 23.9. Former smoker. Nondiabetic. PRIOR TREATMENTS: Gabapentin for her lumbar spine. DURATION OF SYMPTOMS: Her symptoms started last Thursday. BRIEF SUMMARY: This is an otherwise healthy patient who since her slip and fall at work, has had predominantly shoulder pain with background neck pain and now with an exacerbation with radiation down her scapula, triceps, ulnar forearm, and with some numbness and tingling in her ulnar digits with weakness in her interosseous and wrist flexion. It was exacerbated last Thursday and has not improved. She is seen by Dr. Singh today who prescribes steroids. They have been treating her shoulder non-operatively. A MRI was reviewed, the formal report of which was not available yet which shows multilevel cervical spondylosis with some foraminal stenosis most likely worse at C5-6 and C6-7 but no acute large disk herniation or severe central stenosis. Given the duration of the symptoms as well as the nonspecific MRI, I would recommend conservative treatment. I have recommended a soft collar. She is going on the start taking the steroids and consider increasing her gabapentin. I will see her back in approximately 2 weeks' time. I gave her a work note until she is reevaluated. She needs no imaging at her next visit. Her past medical and past surgical history, family and social history, review of systems per the electronic medical record. This was reviewed by me. Of note, she has a history of lumbar stenosis with a prior surgery. Her smoking history is a former smoker and she currently does not smoke. On physical examination, this is a thin, otherwise, healthy appearing female who is in significant discomfort with ice on her shoulder and laying down. She sits up. With the weight of her head, her symptoms are exacerbated. She has no skin changes. She has 4-5/5 strength in bilateral upper extremities except in her interosseous and wrist flexion. Sensation is grossly intact to light touch. Distal pulses are intact. Negative Romberg. Gait is within normal limits. Because of her discomfort, Spurling's and <___> were not performed. Fine motor function appears to be intact although slightly slower on the left side. Passive range of motion of her arm did not exacerbate her shoulder. MRI as well as x-rays are reviewed from today. Please see above. Plan as outlined above. cc: JE Tavarez APRN Spine Center Response Trends Patient-reported scores: myD-H Spine Questionnaire responses 04/30/2014 05/03/2014 06/21/2014 Oswestry Disability Index (Range: 0-100) 26 28 22 documented in this encounter Plan of Treatment Upcoming Encounters Date Type Specialty Care Team Description 08/07/2022 TH Visit [facility] Nahid Carl PsyD (TeleHealth) [facility] [place] [address] (Wo rk) documented as of this encounter Visit Diagnoses Diagnosis Cervical disc disorder with radiculopath y of mid-cervical region Brachial neuritis or radiculitis nos documented in this encounter Care Teams Therapist Relationship Specialty Start Date End Date Susie López APRN PCP - General 05/21/15 06/30/19 documented as of this encounter
--- OUTSIDE RECORDS SUMMARY | 2022-07-25 10:52 | XMS_ITS | Encounter Summary ---
:1960 Author Organization [facility] [place] [address] Care Team Providers Name Role Phone Susie López JE Primary Care Provider Encounter Details Date Type Department Care Team Description 01/22/2017 Office Visit Occupational Therapy Carlota Rahman, Luci ft-sided muscle at [facility] weakness [facility] [place] [address] PHYSICAL MEDICINE [phone] & [place] [address] Social History Tobacco Use Types Packs/Day Years [...] encounter Progress Notes Carlota Rahman, OT - 01/22/2017 3:00 PM EDT OCCUPATIONAL THERAPY TREATMENT NOTE Referral Source: Abel Delvalle MD Next MD Follow-up: PRN Total Treatment time: 48 Minutes Timed Code Treatment Time: 48 minutes OCCUPATIONAL PROFILE: Fely Shaw is a [...] and/or Co-morbidities: 1. 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 Patient [...] your head Severe difficulty 7. 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 Manage transportation needs [...] left thumb, left small finger 2/10 pain 8/10 5-6 Relieving factors: medication including tylenol and neurotin, heating pads Special Testing Completed: Positive Froment's sign left Negative Froments sign on the right Negative Wartenberg's sign bilaterally 9 Hole Peg Test RIGHT LEFT LEFT 01/08/17 Trial #1 18 seconds 18 seconds with 3 child psychologist slips/ dropped pegs 18 seconds with 1 child psychologist slip Mean for age/gender 17.86 seconds 19.48 [...] Abductor digiti minimi 5/5 3/5 3/5 Strength: Consumer Lender Testing with Dynamometer setting #2 Pinch Testing with Pinch Gauge Right Left 12/25/16 Left 01/08/17 Consumer Lender setting 2 69.4/66.2/63.7 20.7/16.8/16.6 29.0/29.2/25.9 Consumer Lender Average 66.4 18 27.96 Consumer Lender norms for age and gender 61.7 57.3 57.3 [place] 08/08/11 Average: 11 34 Average: 3.3 5.5/6/5.5 Average: 5.7 3 Pt 13./ Average: 13.5 4 Average: 3.3 2//2 Average: 2 Tip 4/5/5 Averaged 4.6 0/1/0 Average: 0.3 09/28/.5 Average: 1.2 Women Hand Consumer Lender Strength in Pounds: Mean (SD) Age Right [...] 1366 mean and 1312 women, community based [place] population, healthy adults, Tanmay hand dynamometer); (Edward [...] left Directverbal and visual cues for instruction, required activity modification isometric 7 repetitions Patient tolerated closed chain strengthening Patient demonstrated fatigue with repetition Active assisted shoulder flexion supine Light weight dowel (less than 1#) Direct verbal and visual cues for instruction, total assist for activity modification No added resistance 10 repetitions Patient demonstrated limited tolerance to shoulder ROM completing shoulder flexion between approximately 80and 100 degrees Patient demonstrated decreased shoulder elevation with shoulder flexion with cuing and repetition Palmar pinch, lateral pinch, and tip pinch strengthening Supported short sit Theraputty, small coin-sized stones Mod verbal and visual cues for correct completion yellow, light resistance putty Retrieval of 5 small stones Patient benefited from verbal and visual cues to maintain healthy joint positioning Patient benefited from active rest break: palmar stretch between sets Palmar pinch, lateral pinch, and tip pinch strengthening Supported short sit Calibrated clothespins,thick dowel Verbal and visual cues for correct completion Minimal to moderate resistive clothespins 10 Repetitions for each pinch type Patient demonstrated improved tolerance to resistance with lateralpinch, progressing to moderate resistive clothespins (green) Patient completed palmar pinch with min-mod resistive clothespins (red) Patient completed tip pinch with minimal resistance (yellow) Improved consistency with joint protect techniques while pinching Neuromuscular Re-education Position Equipment Level of assistance Repetitions/ Time Response Functional Electrical Stimulation (61888) using Asymmetrical biphasic waveform for activation of lumbricals Intrinsic hand strengthening: Lumbrical Pulls Supine Beige, super soft theraputty, progressing to yellow (soft resistive) theraputty Max verbal, visual, and tactile cues for correct completion 8 minutes Patient demonstrated poor improving to fair consistency maintaining wrist extension to neutral during exercise Patient fatigued with repetition however improved tolerance to resistance noted with use of electrical stimulation as evidenced by fewer child psychologist slips today Rhythmic stabilization supine Light weight dowel (less than 1#) Max verbal, visual, and tactile cuesfor correct completion 10 repetitions with 3-5 seconds of light perturbations for each rep Patient rated perceived difficulty of exercise as hard Patient demonstrated decreased shoulder elevation with shoulder flexion with cuing and repetition Patient reported increased fatigue with repetition CLINICAL DECISION MAKING: Fely has demonstrated significant gains this interim, meeting 4 short term goals. Gains made in improved ROM, strength, coordination, and function. Significantly improved active wrist extension noted today, meeting short term goal. Significantly improved child psychologist strength measured via hand held dynamometer noted [...] to maximize functional performance during daily activities. Chief Deputy Coroner Goals (to be met by discharge): Date [...] test in </= 18 seconds without any child psychologist slips Goal Status: In progress Patient will [...] 8 week(s) to progress toward short and machine long goods helper goals. Therapeutic exercises to increase functional mobility [...] Nahid Carl PsyD (TeleHealth) [facility] [address] [place], [place] [address] (Wo rk) documented as of this encounter Visit Diagnoses Diagnosis Left-sided muscle weakness Muscle weakness (generalized) documented in this encounter Care Teams Lab Tech Relationship Specialty Start Date End Date Susie López APRN PCP - General 05/21/15 06/30/19 documented as of this encounter
--- OUTSIDE RECORDS SUMMARY | 2022-07-25 10:52 | XMS_ITS | Encounter Summary ---
:1960 Author Organization [facility] [place] [address] Care Team Providers Name Role Phone ReneSusie fleming JE Primary Care Provider Encounter Details Date Type Department Care Team Description 10/30/2016 Hospital Encounter XRay at [facility] Kam Singh MD Neck pain [address] [place] [address] [place] [address] ORTHOPAEDIC SURG [place], [place] [address] (Wo rk) Social History Tobacco [...] (TeleHealth) [facility] [address] [place], [place] [address] (Wo rk) documented [...] Cervicalgia documented in this encounter Care Teams Mica Inspector Relationship Specialty Start Date End Date Susie López APRN PCP - General 05/21/15 06/30/19 documented as of this encounter
--- OUTSIDE RECORDS SUMMARY | 2022-07-25 10:52 | XMS_ITS | Encounter Summary ---
:1960 Author Organization [facility] [place] [address] Care Team Providers Name Role Phone Susie López JE Primary Care Provider Encounter Details Date Type Department Care Team Description 01/06/2017 Office Visit Occupational Therapy Carlota Rahman, [place] [facility] [place] [facility] [place] [address] PHYSICAL MEDICINE [phone] & [place] [address] Social History Tobacco Use Types Packs/Day Years [...] encounter Progress Notes Carlota Rahman, OT - 01/06/2017 4:00 PM EDT OCCUPATIONAL THERAPY TREATMENT NOTE Referral Source: Abel Delvalle MD Next MD Follow-up: PRN Total Treatment time: 35 Minutes Timed Code Treatment Time: 35 minutes OCCUPATIONAL PROFILE: Fely Shaw is a [...] and/or Co-morbidities: 1. 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 Patient previously [...] your head Severe difficulty 7. 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 Manage transportation needs [...] #1 18 seconds 18 seconds with 3 display coordinator slips/ dropped pegs Mean for age/gender 17.86 [...] 3-/5 Abductor digiti minimi 5/5 3/10 Strength: Claims Clerk Testing with Dynamometer setting #2 Pinch Testing with Pinch Gauge Right Left Claims Clerk setting 2 69.4/66.2/63.7 20.7/16.8/16.6 Claims Clerk Average 66.4 18 Claims Clerk norms for age and gender 61.7 57.3 [place] 08/08/11 Average: 11 3/3/4 Average: 3.3 3 Pt 13.5/13/14 Average: 13.5 4/2/4 Average: 3.3 Tip /01/30 Averaged 4.6 0/1/0 Average: 0.3 Women Hand Claims Clerk Strength in Pounds: Mean (SD) Age [...] 1366 mean and 1312 women, community based Malian population, healthy adults, Tanmay hand dynamometer); (Edward Sharp et al, 2008; n = 224; mean age = 75.4 (6.8); good health with normal hand functions; Tanmay dynamometer) Treatment Today: Kinesiotape application: two I bands to facilitate lower trapezius and middle trapezius for improvedpostural alignment. Patient reports good tolerance to tape in place. Patient was instructed in removal techniques in case of skin irritation, increased pain, or general discomfort. Therapeutic exercise Position Equipment Level of assistance Resistance Repetitions/Time Response Palmar pinch strengthening Supported short sit Calibrated clothespins Mod verbal and visual cues forcorrect completion Red, light resistance 2 sets of 8 repetitions for each exercise Patient benefitedfrom verbal and visual cues to maintain healthy joint positioning Patient benefited from active rest break: palmar stretch between sets UE strengthening: wrist flexion, forearm pronation/ supination Supported short sit; forearm neutral,forearm supinated 1# wrist weight, foam wedge Verbal and visual cues for correct completion including equal activation of flexor carpi ulnaris and flexor carpi radialis 1# 2 sets of 5 repetitions Stretch into composite wrist/digit extension completed between each set of wrist flexion Patient rated exercise as medium effort with initial reps and hard effort with repetition UE strengthening: wrist extension, wrist radial/ulnar deviation Supported short sit; forearm in neutral,forearm pronated Foam wedge Verbal and visual cues for correct compleiton Light resistance applied manually 2 sets of 5 repetitions Patient tolerated light overpressure for resistance. Unable to tolerate 1# free weight at this time Composite stretching completed between each set Patient rated exercise as medium effort with initial reps and hard effort with repetition Therapeutic Activity Position Equipment/Environment Level of assistance Repetitions/ Time Response Patient re-educated on role/purpose of ergonomics and work station redesign assessment to ensure proper posture and positioning Supported short sit Patient verbalized understanding CLINICAL DECISION MAKING: Fely reports increased pain with activity today and difficulty completingwork tasks due to pain. Reviewed recommendations for ergonomic assessment; patient verbalized understanding. Fely demonstrated fair tolerance to strengthening today reporting no increased in pain symptoms before, during, after exercise completion however, limited repetitions completed due to fatigue.Fely Shaw has fair to good potential for gains with therapy with identified needs for skilled therapy for treatment of deficits noted during evaluation today, to maximize functional performance during daily activities. Usp Goals (to be met by discharge): Date [...] test in </= 18 seconds without any display coordinator slips Goal Status: In progress PLAN: The [...] and Spine Center Nahid Carl PsyD (TeleHealth) [facility] [address], [place] [address] (Wo rk) documented as of this encounter Visit Diagnoses Diagnosis Left-sided muscle weakness Muscle weakness (generalized) documented in this encounter Care Teams Marine Radio Installer And Servicer Relationship Specialty Start Date End Date Susie López APRN PCP - General 05/21/15 06/30/19 documented as of this encounter
--- OUTSIDE RECORDS SUMMARY | 2022-07-25 10:52 | XMS_ITS | Encounter Summary ---
:1960 Author Organization [facility] [place] [address] Care Team Providers Name Role Phone Susie López APRN Primary Care Provider Encounter Details Date Type Department Care Team Description 01/29/2017 Office Visit Occupational Therapy Carlota Rahman Le ft-sided muscle weakness; at [facility] OT Cervical disc disorder with radiculopath y of mid-cervical region [address] [place] [address] CENTER [phone] PHYSICAL MEDICINE & [place] [address] Social History Tobacco Use Types Packs/Day Years [...] encounter Progress Notes Carlota Rahman OT - 01/29/2017 8:00 AM EDT OCCUPATIONAL THERAPY TREATMENT NOTE [...] disorder with radiculopathy of mid-cervical region 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 Patient previously worked [...] your head Severe difficulty 7. 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 Manage transportation needs [...] using the visual analog scale) At Rest: 2-3/10 pain down shoulder blades; 0/10 biceps; 0/10 [...] #1 18 seconds 18 seconds with 3 edging machine operator slips/ dropped pegs 18 seconds with 1 edging machine operator slip Mean for age/gender 17.86 seconds [...] Abductor digiti minimi 5/5 3/5 3/5 Strength: Shrimp Header Testing with Dynamometer setting #2 Pinch Testing with Pinch Gauge Right Left 12/25/16 Left 01/08/17 Left 01/26/17 Left 01/29/17 Shrimp Header setting 2 69.4/66.2/63.7 20.7/16.8/16.6 29.0/29.2/25.9 16.3/11.1/11.5 7/10 pain back of arm 12.8/9.3/13.3 4/10 Shrimp Header Average 66.4 18 27.96 12.9 11.8 Shrimp Header norms for age and gender 61.7 57.3 57.3 57.3 [place] 08/08/11 Average: 11 3/3/4 Average: 3.3 5.5/6/5.5 Average: 5.7 5/5/5 Average: 5 3 Pt 13.5//14 Average: 13.5 4/2/4 Average: 3.3 2/2/2 Average: 2 3/3/3 Average: 3 Tip 4/5/5 Averaged 4.6 0/1/0 Average: 0.3 1/1.5 Average: 1.2 1/1/1.5 Average: 1.5 Women Hand Shrimp Header Strength in Pounds: Mean (SD) Age Right [...] 1366 mean and 1312 women, community based French population, healthy adults, Tanmay hand dynamometer); (Edward Sharp et al, 2008; n = 224; mean age = 75.4 (6.8); good health with normal hand functions; Tanmay dynamometer) Treatment Today: Reassessed edging machine operator strength; please see above for detailed results Kinesiotape applied today using a I band [...] cues for correct completion Yellow, soft resistive putty Numerous Repetitions for each pinch type to remove 7 stones Patient demonstrated good tolerance to resisted pinching Improved consistency with joint protection techniques while pinching Hand strengthening: Finger abduction against light resistance Supported short sit Theraputty Verbal and visual cues for correct completion Yellow, soft resistive putty 2 sets of 10 repetitions Patient demonstrated good tolerance to light resistance as evidenced by increased repetition today Short arc movement completed due to tendency to hyperextend at MP joint Patient reported fatigue with repetition Shrimp Header strengthening Supported short sit Dowel and putty Calibrated gripper Verbal and visual cues for correct completion Yellow, soft resistive putty, calibrated gripper at 10# 2 sets of 10 repetitions Patient demonstrated good tolerance to resistive gripping Composite stretching completed between each set UE Strengthening: wrist flexion, wrist extension, wrist radial/ulnar deviation, forearm pronation/supination Supported short sit Foam bolster to support left UE, free weights, soft CMC support Verbal and visual cues for correct completion and activity modification for completion in pain free range 1# 1 set of 10 repetitions for each exercise Patient demonstrated fatigue limiting ROM of final repetitions Mod assist provided for stretching between each exercise Neuromuscular Re-education Position Equipment Level of assistance Repetitions/ Time Response Functional Electrical Stimulation (91606) using Asymmetrical biphasic waveform for activation of lumbricals Intrinsic hand strengthening: Lumbrical Pulls Supported short sit Beige, super soft theraputty Max verbal, visual, and tactile cues for correct completion 9 minutes Patient demonstrated limited abilityto maintain wrist extension at neutral during exercise Patient fatigued with repetition however improved tolerance to resistance noted with use of electrical stimulation as evidenced by fewer edging machine operator slips today CLINICAL DECISION MAKING: Fely presents with reports of decreased upper trapezius/neck/shoulder pain however continued strength deficits noted with edging machine operator reassessment today. Improved activity toleranceoverall today with activity modification throughout for exercise completion without increased pain. Fely Shaw has fair to good potential for gains with therapy with identified needs for skilled therapy for treatment of deficits noted during evaluation today, to maximize functional performance during daily activities. Corporate Responsibility Officer Goals (to be met by discharge): Date [...] test in </= 18 seconds without any edging machine operator slips Goal Status: In progress Patient [...] Carl PsyD (TeleHealth) [facility] [address], [place] [address] (Wo rk) documented as of this encounter Visit Diagnoses Diagnosis Left-sided muscle weakness Muscle weakness (generalized) Cervical disc disorder with radiculopath y of mid-cervical region Brachial neuritis or radiculitis nos documented in this encounter Care Teams Sales Estimator Relationship Specialty Start Date End Date Susie López APRN PCP - General 05/21/15 06/30/19 documented as of this encounter
--- OUTSIDE RECORDS SUMMARY | 2022-07-25 10:53 | XMS_ITS | Encounter Summary ---
:1960 Author Organization [facility] [address] Care Team Providers Name Role Phone None Primary Care Provider Unavailable Encounter Details Date Type Department Care Team Description 08/10/2014 Orders Only Radiology and Cardiology Apd Conversion, Results Results Provider, [address] [place] [phone] Social History Tobacco Use Types Packs/Day Years Used Date Former Smoker Sex Assigned at Date Recorded Not on file documented as of this encounter Plan of Treatment Upcoming Encounters Date Type Specialty Care Team Description 08/07/2022 TH Visit [facility] Nahid Carl PsyD (TeleHealth) [facility] [place] [address] (Wo rk) documented as of this encounter Procedures Procedure Name Priority Date/Time Associated Diagnosis Comme nts HEMOGLOBIN A1C Routine 08/10/2014 3:53 PM Results for this EST procedure are i n the results section . documented in this encounter Results (ABNORMAL) Hemoglobin A1c (08/10/2014 3:53 PM EST) [facility] gist Method Time Signature Hemoglobin A1C 5.4 4.5 - 6.2 (External % CONVERSION Lab) Specimen (Source) Anatomical Collection Method Collection Time Re ceived Time Location / / Volume Laterality 08/10/2014 3:53 PM EST Results Provider Apd Conversion CHEMISTRY ORDERABLE S Performing Organization Address City/State/ZIP Code Phon e Number CONVERSION [address] [place], [place] [address] [place] CONVERSION documented in this encounter Visit Diagnoses Not on filedocumented in this encounter Care Teams Nuclear Weapons Mechanical Specialist Relationship Specialty Start Date End Date None PCP - General 07/11/19 09/14/19 None documented as of this encounter
--- OUTSIDE RECORDS SUMMARY | 2022-07-25 10:53 | XMS_ITS | Encounter Summary ---
:1960 Author Organization [facility] Address [facility] [place] [address] Care Team Providers Name Role Phone Marla Wheatley JE Primary Care Provider Encounter Details Date Type Department Care Team Description 02/16/2014 Hospital Encounter MRI at [facility], [facility] Wesly Riley II, MD [address] [place] [address] [place] [address] Social History Tobacco Use Types Packs/Day Years Used Date Former Smoker Sex Assigned at Date Recorded Not on file documented as of this encounter Medications at Time of Discharge Medication Sig Dispensed Refills Start Date End Date chloroquine (ARALEN) 500 Take 1 tablet by 6 tablet 0 03/1106/23/2014 mg tabletIndications: mouth every 7 days. Foreign travel Start 1 week prior to travel; Take weekly while in malaria area; continue 4 weeks after epiNEPHrine (EPIPEN) 0.3 Inject 0.3 mLs into 1 each 1 08/11/2014 mg/0.3 mL (1:1,000) the muscle once as injectionIndications: needed. Healthcare maintenance cetirizine (ZYRTEC) 10 mg 0 12/18/2010 08/26/2016 tablet multivitamin (THERAGRAN) 0 12/18/2010 06/22/2014 tablet Calcium 500 mg Tab 0 12/18/20102013 ibuprofen (ADVIL;MOTRIN) 0 12/18/2010 06/23/2014 400 mg tablet documented as of this encounter Plan of Treatment Upcoming Encounters Date Type Specialty Care Team Description 08/07/2022 TH Visit [facility] Nahid Carl PsyD (TeleHealth) [facility] [place], [place] [address] (Wo rk) documented as of this encounter Procedures Procedure Name Priority Date/Time Associated Diagnosis Comme nts MRI LUMBAR SPINE Routine 02/16/2014 2:00 PM Resul ts for this WITHOUT CONTRAST EDT procedure a re in the results section. documented in this encounter Results MRI lumbar spine without contrast (02/16/2014 2:00 PM EDT) Anatomical Region Laterality Modality L-spine Magnetic Resonance Specimen (Source) Anatomical Collection Method Collection Time Re ceived Time Location / / Volume Laterality 02/16/2014 2:00 PM EDT Narrative 02/16/2014 2:57 PM EDT Examination MR Lumbar Spine WO Clinical History back pain, DJD lumbar spine Technique We obtained multi sequence multiplanar v iews of the lumbosacral region. ?? Comparison NONE Findings The vertebral bodies are normal in heigh t. ??There is retrolisthesis of L5 upon S1. An extruded disc is present at this level (series 3 image 8). The degree of stenosis is very mild, however. ?? At L4-5 a symmetrically bulging disk is coupled with facet hypertrophic changes to produce mild stenosis (series 5 image 18). The findings are normal at the L3-4 and at L2-3 as well as L1-2. ?? Impression A Centrally extruded disc is present at L5-S1. ?? Comment: The following findings are so c ommon in people without low back pain that while we report their presence, the y must be interpreted with caution and in the context of the clinical situation . (Reference-Ulysses et al, Spine 2001) Findings: (prevalence in patients withou t low back pain), Disk degeneration (decreased T2 signal, height loss, bulge ) (91%), Disk T2-signal loss (83%), Disk height loss (56%), Disk bulge (64%) , Disk protrusion (32%), Annular fissure (38%). Procedure Note Quin Vargas MD - 02/16/2014For matting of this note might be different from the original. Examination MR Lumbar Spine WO Clinical History back pain, DJD lumbar spine Technique We obtained multi sequence multiplanar v iews of the lumbosacral region. Comparison NONE Findings The vertebral bodies are normal in heigh t. There is retrolisthesis of L5 upon S1. An extruded disc is present at this level (series 3 image 8). The degree of stenosis is very mild, however. At L4-5 a symmetrically bulging disk is coupled with facet hypertrophic changes to produce mild stenosis (series 5 image 18). The findings are normal at the L3-4 and at L2-3 as well as L1-2. Impression A Centrally extruded disc is present at L5-S1. Comment: The following findings are so c ommon in people without low back pain that while we report their presence, the y must be interpreted with caution and in the context of the clinical situation . (Reference-Marciok et al, Spine 2001) Findings: (prevalence in patients withou t low back pain), Disk degeneration (decreased T2 signal, height loss, bulge ) (91%), Disk T2-signal loss (83%), Disk height loss (56%), Disk bulge (64%) , Disk protrusion (32%), Annular fissure (38%). Marla Wheatley APRN IMG MRI ORDERABLES documented in this encounter Visit Diagnoses Not on filedocumented in this encounter Care Teams Increment Manager Relationship Specialty Start Date End Date Marla Wheatley APRN PCP - General 08/20/10 05/20/15 1 [place] [address] documented as of this encounter
--- OUTSIDE RECORDS SUMMARY | 2022-07-25 10:53 | XMS_ITS | Encounter Summary ---
:1960 Author Organization [facility] [place] [address] Care Team Providers Name Role Phone Marla Wheatley JE Primary Care Provider Encounter Details Date Type Department Care Team Description 05/01/2014 Telephone Pain Management [place] [address] Social History Tobacco Use Types Packs/Day Years Used Date Former Smoker Sex Assigned at Date Recorded Not on file documented as of this encounter Miscellaneous Notes Telephone Encounter - Rita Hammond LPN - 05/01/2014 1:52 PM EDT Fely Shaw :1960 Message left: I left a message on answering machine Ms. Shaw at 1:53 PM regarding her upcoming lumbar epidural steroid injection with Dr. Jeff Karimi MD. Message included the followin. Patient instructed to arrive at 8:35 (30 minutes prior to procedure start time) on 05/03/14 (date of procedure) with their ambulette driver. 2. Following instructions left in the message: - Bring Updated list of medications including dosage and reason for taking. - Call the Pain Clinic Nurse at for: ~Procedure instructions. ~If you are taking antibiotics. ~If you have any signs or symptoms of infection, cold or flu. ~If you have any skin breakdown (rashes, cysts, or abscess.) ~If you are taking anticoagulants / blood thinners (Plavix, Pletal, Lovenox, Coumadin, etc). ~If you had any steroid injections anywhere in your body within the last two weeks? Rita Hammond LPN documented in this encounter Plan of Treatment Upcoming Encounters Date Type Specialty Care Team Description 08/07/2022 TH Visit [facility] Nahid Carl PsyD (TeleHealth) [facility] [place] [address] (Wo rk) documented as of this encounter Visit Diagnoses Not on filedocumented in this encounter Care Teams Dog Boarder Relationship Specialty Start Date End Date Marla Wheatley APRN PCP - General 08/20/10 05/20/15 1 [place] [address] documented as of this encounter
--- OUTSIDE RECORDS SUMMARY | 2022-07-25 10:53 | XMS_ITS | Encounter Summary ---
:1960 [place] [address] Care Team Providers Name Role Phone Katiuska Wheatley JE Primary Care Provider Encounter Details Date Type Department Care Team Description 08/11/2014 - Hospital Encounter 5 [place] 08/14/2014 [facility] MD Denice spondylosis without Hospital [facility] MEDICAL myelopathy [facility] DR Mijares [place] [id number] [phone] Social History Tobacco Use Types Packs/Day Years Used Date Former Smoker Cigarettes Quit: 08/12/20 09 Smokeless Tobacco: Never Used Tobacco Cessation: Counseling Given: No Alcohol Use Standard Drinks/Week Comments Yes 0 (1 standard drink = 0.6 oz pure alcoho l) Sex Assigned at Date Recorded Not on file documented as of this encounter Last Filed Vital Signs Vital Sign Reading Time Taken Comments Blood Pressure 115/63 08/14/2014 5:59 PM EST Pulse 85 08/14/2014 5:59 PM EST Temperature 36.5 ??C (97.7 ??F) 08/14/2014 5:59 PM EST Respiratory Rate 18 08/14/2014 5:59 PM EST Oxygen Saturation 97% 08/14/2014 5:59 PM EST Inhaled Oxygen Concentration - - Weight 73.2 kg (161 lb 6 oz) 08/12/2014 10:30 PM EST Height 172.7 cm (5' 8) 08/11/2014 9:36 PM EST Body Mass Index 24.54 08/11/2014 9:36 PM EST documented in this encounter Discharge Instructions Patient InstructionsGoldie Gomez MD - 08/14/2014 5:17 PM EST You were admitted to the neurology service at [facility]. Your diagnosis: pain Medication Changes: Stop these medications: oxycodone Change these medications:Gabapentin 900mg three times daily Patient Instructions: ??? Call your doctor or seek medical attention if you have ??? weakness or numbness in your face or one of your limbs or difficulty speaking ??? loss of vision ??? seizures or loss of consciousness ??? Diet: we recommend a heart healthy diet: low fat, low cholesterol, low concentrated sweets. ??? Activity Restrictions: none ??? Driving Restrictions: Drive when you feel like you have full strength ??? Home oxygen therapy: none needed ??? Anticoagulation Follow-up and Instructions: none FOLLOWUP APPOINTMENT: You will have an outpatient followup appointment in the neurology clinic at [facility]. If not already listed in this document, we will contact you to schedule this appointment. -- If 1 week passes by after you are discharged and you still do not have an appointment, please call [phone]. documented in this encounter Medications at Time of Discharge Medication Sig Dispensed Refills Start Date End Date Calcium 500 mg Take 1,000 mg by 0 TabletIndications: mouth daily. Intervertebral disc disorder with radiculopathy of lumbar region gabapentin (NEURONTIN) Take 3 capsules by 90 capsule 12 08/1408/04/2016 300 mg Capsule mouth 3 times daily. meloxicam (MOBIC) 7.5 mg Take 1 tablet by 30 tablet 12 08/1406/12/2015 Tablet mouth daily. esomeprazole (NEXIUM) 40 Take 1 capsule by 30 capsule 12 07/2906/12/2015 mg Capsule, Delayed mouth daily. Release(E.C.) oxyCODONE (ROXICODONE) 5 Take 1-2 tablets by 5 tablet 0 06/12/2015 mg Tablet mouth every 3 hours as needed for Pain. oxyCODONE (ROXICODONE) 5 Take 1-2 tablets by 15 tablet 0 06/12/2015 mg Tablet mouth every 4 hours as needed for Pain. diaZEPam (VALIUM) 5 mg Take 1 tablet by 5 tablet 0 014 06/12/2015 Tablet mouth every 6 hours as needed for Anxiety (spasm). cetirizine (ZYRTEC) 10 mg 0 12/18/2010 08/26/2016 tablet documented as of this encounter Progress Notes Emilia Balderas RN - 08/14/2014 8:26 PM EST Discharge Note: Patient and spouse received discharge instructions by prior shift RN. Patient and spouse had questions, and Neurology converter operator was paged. Dr Vazquez was paged and she was uprised of the situation. She came and spoke with patient and spouse, who were requesting to speak with an Attending or Administration in person. Patient, in wheelchair, pushed by spouse left very unhappy with the situation. Goldie Gomez MD - 08/14/2014 5:48 PM EST 5:48PM Went to patient's bedside to explain discharge questions. She asked about neurosurgery recommendations and i relayed the information i had received over hte phone, and explained that if they had no other recommendations or reasons for her symtpoms, then we are proceeding as is and she says she plans to follow- up with her [facility] neurosurgeon. Explained to patient priyank she would have prescription for 3 medications, first gabapentin since we increased the dose. Explained that she has been tolerating the increased dose while here and the full therapeutic effect might take 2 weeks. Second meloxicam as she says she needs another script and likestaking that as puts the once a day dosing is good. Also told her i sent script for nexium to take as needed because some medications can cause stomach irritation. She asked about voltaren charley advised that we had considered it and can still try it as outpatient or she can call Dr Raymond or myself sooner if she doesn't have relief or gradual improvement on the planned regimen above. I stressed that she should try to not take the oxycodone because narcotics are not ideal therapy for nerve pain. She pleasantly expressed understanding oh im only taking one every few days anyway. asks about rash on left elbow can you test her for lyme? This looks like a 'BE' rash because it has central clearing (shows white space at elbow and traces where he sees border of demarcation). 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 on exam, patienthas a blotchy and blanching erythematous patch on dorsum of arm over and above elbow, homogeneous, no central clearing though the skin over the elbow appears white went bent. Rash is also present to lesser extent on right arm. I determined this looks more like contact dermatitis or skin irritation andshe can try over the counter cortisone or call her PCP. At first i offered her to call our clinic but then we both decided that the PCP would be better to handle skin problems. Both patient and were pleasant and in agreement with our conversation and agreeable to discharge. 8:32PM Patient encounter message by covering physician Fely Shaw was discharged from the hospital the family was upset about not receiving as a prescription for oxycodone, particularly the . I spoke with senior resident and on-call attending and gave patient a prescription for 5 tablets of oxycodone since patient is to taper off the oxycodone. The raised his voice and was also cursing at me f this hospital, f you people no one ever tells me what is going on. He demanded to speak to an attending, and that's when I called Dr. Fuller to let her know the situation. He was also threatening and very angry and said that he can prescribethe oxycodone himself to his . I assured him that I can give a prescription that will be enoughto give through the night as per General service team and that the patient can call the acute pain clinic team tomorrow morning and that I am the covering physician overnight. He has mentioned that he will be calling Dr. Machado tomorrow morning. Kiesha Teran RN - 08/14/2014 1:12 PM EST Office of Care Management Clinical [place] ([facility]) Kiesha Strickland RN, BSN -[facility] Neurology/ENT Voice Mail [phone] Pager [phone] #[phone] INITIAL ASSESSMENT Room # 502 Chart reviewed. Patient and plan of care discussed in morning multidisciplinary rounds. REASON for HOSPITALIZATION: 54 y.o. 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 PCP:KATIUSKA WHEATLEY APRN @PCPADDR@ [phone] CURRENT STATUS: Remains close to her baseline level of function. SOCIAL/FAMILY SUPPORTS: She has a supportive INSURANCE COVERAGE: [employer] ADVANCE DIRECTIVES: Yes on file REHAB TEAM CONSULTS: Not indicated at this time. TIMBER GRADER: Not indicated at this time. ASSESSMENT/PLAN: Nursing assessment reviewed and spoke with bedside RN.Have met with [place]. She has great support from her . She feels that she will be safe enough to go home. She would prefera walker for when she is feeling tired. She would like to have Ortho care deliver one to her in her room prior to d/c. She also would like to have home PT with [facility]. She does not identify and other d/c needs. Will continue to be available should needs arise. Will order her a walker and home PT. Sanju Machado MD - 08/14/2014 11:41 AM EST Neurology Progress Note Patient Name: Fely Shaw Admit Date: 08/11/2014 Attending: Dr Machado Patient ID: Fely Shaw is a 54 y.o. 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 Active Issues: Left leg pain, paresthesias, weakness Interval History: Pt says she continues to have hyperalgesia/pain/weakness of the anterior left thigh. Patient says her lower back pain has improved since her surgery, but since surgery she continues to have left foot/posterior calf numbness. Medications: Scheduled Meds: ??? gabapentin 600 mg Oral TID ??? diaZEPam 5 mg Oral Q8H ??? esomeprazole 40 mg Oral Daily ??? sodium chloride 0.9 % 5 mL Intravenous BID Continuous Infusions: PRN Meds:. ??? oxyCODONE (ROXICODONE) immediate release tablet 5-10 mg 5-10 mg Oral Q3H PRN ### ??? sodium chloride 0.9 % flush 5-20 mL 5-20 mL Intravenous Q1 Min PRN ### ??? lidocaine (XYLOCAINE) 10 mg/mL (1 %) injection 3 mg 0.3 mL Subcutaneous Once PRN ### ??? bisacodyl (DULCOLAX) suppository 10 mg 10 mg Rectal Daily PRN ### ??? magnesium hydroxide (MILK OF MAGNESIA) oral suspension 10 mL 10 mL Oral Daily PRN ### ??? acetaminophen (TYLENOL) tablet 650 mg 650 mg Oral Q6H PRN ### Physical Exam: Vitals: Temp: [36.4 ??C (97.5 ??F)-36.8 ??C (98.2 ??F)] Heart Rate: [77-88] Resp: [16-18] BP: (102-118)/(56-69) SpO2: [95 %-99 %] General: nondiaphoretic, no acute distress. Head/Neck: normocephalic/atraumatic. Oropharynx clear. CV: regular rate/rhythm, no murmurs/rubs/gallops. Pulm: clear to auscultation bilaterally. Extremities: no edema, no joint abnormalities. Neuro: Mental Status: alert, oriented to person, place and time. HEENT/CN: PERRL, EOMI, no ptosis, visual hayes intact. Facial sensation intact, muscles of mastication normal Symmetric smile, eyelids closed equally. Palate elevated symmetrically, midline tongue, no dysarthria. Motor: Segment Muscle Action Right Left C5 Deltoids Biceps Shoulder abduction Elbow flexion 5/5 5/5 C6 Extensor carpi radialis Wrist extension 5/5 5/5 C7 Triceps Elbow extension 5/5 5/5 C8, T1 Hand intrinsics Thumb abduction (rad) Finger flex/ABP (med) Finger abduction (ulnar) 5/5 5/5 L2 Iliopsoas Hip flexion 5/5 4/5 L3 Quadriceps Knee extension 5/5 4/5 L5-S2 Biceps femoris Knee flexion 5/5 4/5 L4 Tibialis anterior Dorsiflexion 5/5 4+/5 L5 Extensor hallucis Great toe extension 5/5 4+/5 S1 Gastrocnemius Plantar flexion 5/5 5/5 Thigh adducters 5/5 on the left Reflex: Right Left Biceps 2+ 2+ Brachioradialis 2+ 2+ Triceps 2+ 2+ Patellar 2+ 2+ Ankle 2+ 2+ Plantar response (Babinski) mute mute Sensation: decreased to light touch and vibration along l3-l4 and l5-s1 dermatomes on left LLE, unchanged Gait: Not assesed Labs: No results found for this or any previous visit (from the past 24 hour(s)). Consults, Diagnostic Tests, and Imaging: Assessment / Plan: 54 y/o F with no significant PMHx who is s/p left L5-S1 hemilaminotomy, medial facetectomy, foraminotomy on 08/05/14 @ OSH for lower back pain and left thigh pain. Lower back pain has improved, but leftthigh pain persists, and since surgery new left lateral foot to left calf paraesthia. Repeat MRI on 08/10/14 wo contrast shows R partial sacralization at L5-S and a large Left osteophytearising from the disc space with the exiting L5 nerve root draped over it. On 08/10/14 patient had aleft L5 nerve block without any improvement of pain. EMG of the LLE today (08/14/14) did not show denervation. 08/14/14: Acute pain saw patient and believes oxycodone is appropriate for pain. They believe some of the pain may subside as patient gets further from surgery. Neurosurgery to see the patient and assess any need for additional surgical intervention. We have stopped the dexamethasone because EMG doesn't show any active denervation. We will keep patient on PRN tylenol 650mg A9eekuo, oxycodone 5-10mg Q3 prn, and increase her gabapentin from 600mg TID to 900mg TID. PT saw the patient today and suggested home PT. Plan: -stop toradaol 30 mg q6hrs PRN -stop dexamethasone 4 mg daily -valium 5 mg q8hrs for spasms -increase neurontin to 900 mg TID -neurosurgery consult -regular diet -DVT PPX:SCD's FULL code Lavelle Wall MD PGY1 General Neurology [id number] The assessment and plan were formulated in discussion with me at the time of the visit and I agree with them as documented. .Sanju Machado MD Giuseppe Ortega PT - 08/13/2014 6:19 PM EST Physical Therapy Note Pt getting settled into bed with RN applying heat to LEs when PT arrived this evening. Pt not interested in working with PT this evening. Pt reports she is walking with staffing executive assistance, and staffing executive confirms this. Patient reports the numbness seems to be improving. Will have a PT follow up tomorrow for PT evaluation; RN aware of pt's status, and pt calling for assistance with all mobility. Giuseppe Ortega, PT Beeper# [phone] Sanju Machado MD - 08/13/2014 9:54 AM EST Neurology Progress Note Patient Name: Fely Shaw Admit Date: 08/11/2014 Attending: Dr Machado Patient ID: Fely Shaw is a 54 y.o. 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 Active Issues: Left leg pain and paresthesias Interval History: Patient seen and examined at bedside. Burning sensation persists but she thinks numbness and strength improving. Medications: Scheduled Meds: ??? gabapentin 600 mg Oral TID ??? ketorolac 30 mg Intravenous Q6H ARELI ??? diaZEPam 5 mg Oral Q8H ??? esomeprazole 40 mg Oral Daily ??? sodium chloride 0.9 % 5 mL Intravenous BID Continuous Infusions: PRN Meds:.oxyCODONE, sodium chloride 0.9 %, lidocaine, bisacodyl, magnesium hydroxide, acetaminophen Physical Exam: Vitals: Temp: [36.8 ??C (98.2 ??F)-37.4 ??C (99.3 ??F)] Heart Rate: [84-94] Resp: [14-20] BP: (110-135)/(60-73) SpO2: [94 %-99 %] General: nondiaphoretic, no acute distress. Head/Neck: normocephalic/atraumatic. Oropharynx clear. CV: regular rate/rhythm, no murmurs/rubs/gallops. Pulm: clear to auscultation bilaterally. Extremities: no edema, no joint abnormalities. Neuro: Mental Status: alert, oriented to person, place and time. HEENT/CN: PERRL, EOMI, no ptosis, visual hayes intact. Facial sensation intact, muscles of mastication normal Symmetric smile, eyelids closed equally. Palate elevated symmetrically, midline tongue, no dysarthria. Motor: Segment Muscle Action Right Left C5 Deltoids Biceps Shoulder abduction Elbow flexion 5/5 5/5 C6 Extensor carpi radialis Wrist extension 5/5 5/5 C7 Triceps Elbow extension 5/5 5/5 C8, T1 Hand intrinsics Thumb abduction (rad) Finger flex/ABP (med) Finger abduction (ulnar) 5/5 5/5 L2 Iliopsoas Hip flexion 5/5 4/5 L3 Quadriceps Knee extension 5/5 4/5 L5-S2 Biceps femoris Knee flexion 5/5 5/5 L4 Tibialis anterior Dorsiflexion 5/5 4+/5 L5 Extensor hallucis Great toe extension 5/5 4+/5 S1 Gastrocnemius Plantar flexion 5/5 5/5 Thigh adducters 5/5 on the left Reflex: Right Left Biceps 2+ 2+ Brachioradialis 2+ 2+ Triceps 2+ 2+ Patellar 2+ 2+ Ankle 2+ 2+ Plantar response (Babinski) mute mute Sensation: decreased to light touch and vibration along l3-l4 and l5-s1 dermatomes on left LLE, unchanged Gait: Not assesed Labs: No results found for this or any previous visit (from the past 24 hour(s)). Consults, Diagnostic Tests, and Imaging: Assessment / Plan: 54 y/o F p/w intractible LLE pain, possible L5-S1 radiculopathy, but it does not seem to have improved with surgery. She may therefore have a lumbosacral plexopathy given the intractable pain and primarily distal motor weakness in her LLE. Continuing NSAIDs and patient declined decadron, will try again today. #radiculopathy with pain/plexopathy -Admit to Neurology - morphine RECREATIONAL LEADER pump discontinued -toradaol 30 mg q6hrs PRN -dexamethasone 4 mg daily (restarted) -valium 5 mg q8hrs for spasms -neurontin 300 mg TID -->increased to 400 mg TID -EMG on thursday -neurosurgery consult -regular diet -DVT PPX:SCD's FULL code Goldie Almonte MD Neurology Resident, PGY2 Pager [phone] General Neurology [phone] For EMG tomorrow will get NS consult I saw and evaluated the patient with Dr. Gomez. I have reviewed the resident's history during the visit and I agree with the details as written. My neurological examination confirms the resident's findings. The assessment and plan were formulated in discussion with me at the time of the visit and I agree with them as documented. Discussed at length with patient and family about diagnostic considerations. Explained diagnosis andtreatment. Patient understands and accepts our plan..Sanju Machado MD EMG no active denervation The assessment and plan were formulated in discussion with me at the time of the visit and I agree with them as documented. Discussed at length with patient and family about diagnostic considerations. Explained diagnosis andtreatment. I went over medications, indications and side- effects. Patient understands and accepts our plan. If there are any questions or problems, they will call.Sanju Machado MD documented in this encounter H&P Notes Sanju Machado MD - 08/11/2014 8:55 PM EST Neurology Admission History and Physical Patient name: Fely Shaw Date of : 1960 PCP: KATIUSKA WHEATLEY APRN CC: intractable LLE pain HPI: Fely Shaw is a 54 y.o. healthy female 6 months ago when she began to experience progressive Low back pain that radiated across her hip from buttock to anterior thigh on the left side only. Pain didnot go below the knee. She had numbness and tingling along the same distribution with occasional spasms. It occurred after moving several heavy boxes. She tried TENS and it seemed to work intially, butafter a while it felt as if she was just pushing the pain more posteriorly. She tried meloxicam and had PT, and SUE, but pain got much worse over last 2 weeks. She describe sit as the same type of pain, just more frequent and intense and unresponsive to her meloxicam. She was tried on decadron 4 mg without success as well. She presented to [facility] on 08/04 as she was unable to get out of bed due to the severity of the pain. Transferred to [facility] for neurosurgical intervention, and had MRI that showed far lateral compression at L4 nerve root. Pt had Left L4-L5 hemilaminotomy, medial facetectomy, foraminotomy with L5-S1. After the surgery 08/05, pt developed more pain, and new numbness along L5-S1 distribution (though no pain along lateral side of foot, pain remains at the thigh level). CT nerve block of L5 attempted yesterday did not decrease her pain. She has no issues with bowel or bladder and no problems with the right leg. SHe was transferred to [facility] for further evaluation for possible lumbar plexopathy Past Medical History: Past Medical History Diagnosis Date ??? Lumbosacral spondylosis without myelopathy 06/23/2014 Medications: Prescriptions prior to admission Medication Sig Dispense Refill ??? dexamethasone (DECADRON) 4 mg Tablet Take 4 mg by mouth. ??? oxyCODONE (ROXICODONE) 5 mg Tablet Take 1-2 tablets by mouth every 4 hours as needed for Pain. 15 tablet 0 ??? diaZEPam (VALIUM) 5 mg Tablet Take 1 tablet by mouth every 6 hours as needed for Anxiety (spasm). 5 tablet 0 ??? Calcium 500 mg Tablet Take 1,000 mg by mouth daily. ??? meloxicam (MOBIC) 7.5 mg tablet Take 7.5 mg by mouth daily. ??? acetaminophen (TYLENOL) 500 mg tablet Take 1,000 mg by mouth every 6 hours as needed. ??? epiNEPHrine (EPIPEN) 0.3 mg/0.3 mL (1:1,000) injection Inject 0.3 mLs into the muscle once as needed. 1 each 1 ??? cetirizine (ZYRTEC) 10 mg tablet ??? VITAMIN E ACETATE (VITAMIN E ORAL) ??? Black Cohosh 40 mg Tab Allergies Allergen Reactions ??? Honey Bee Venom Protein Anaphylaxis ??? Wasp Venom Anaphylaxis ??? White-Faced Hornet Venom Anaphylaxis ??? Yellow Hornet Venom Anaphylaxis ??? Yellow Jacket Venom Anaphylaxis ??? Cis Free Text Allergy food dyes - Hives Family history: Non-contributory Social history: No drug or alcohol use. Pt works here as a [employer] Review of systems: Constitutional: No fevers or chills Eyes: No vision changes, no diplopia, no blurry vision ENT: No rhinorrhea or pharyngitis, no meningismus CV: No chest pain or palpitations Resp: No cough, no shortness of breath GI: No nausea, vomiting, diarrhea or constipation : No dysuria, no incontinence Heme: No bleeding or bruising Endo: No diabetes or thyroid disease Neuro: See HPI Psych: No depression, normal sleep [x] Review of systems otherwise negative Physical Exam: VS: BP 140/71 Pulse 94 Temp(Src) 37 ??C (98.6 ??F) (Oral) Resp 18 Ht 172.7 cm (5' 8) Wt 68.2 kg (150 lb 5.7 oz) BMI 22.87 kg/m2 SpO2 94% General: nondiaphoretic, no acute distress. Head/Neck: normocephalic/atraumatic. Oropharynx clear. CV: regular rate/rhythm, no murmurs/rubs/gallops. Pulm: clear to auscultation bilaterally. Extremities: no edema, no joint abnormalities. Neuro: Mental Status: alert, oriented to person, place and time. HEENT/CN: PERRL, EOMI, no ptosis, visual hayes intact. Facial sensation intact, muscles of mastication normal Symmetric smile, eyelids closed equally. Palate elevated symmetrically, midline tongue, no dysarthria. Motor: Segment Muscle Action Right Left C5 Deltoids Biceps Shoulder abduction Elbow flexion 5/5 5/5 C6 Extensor carpi radialis Wrist extension 5/5 5/5 C7 Triceps Elbow extension 5/5 5/5 C8, T1 Hand intrinsics Thumb abduction (rad) Finger flex/ABP (med) Finger abduction (ulnar) 5/5 5/5 L2 Iliopsoas Hip flexion 5/5 4/5 L3 Quadriceps Knee extension 5/5 4/5 L5-S2 Biceps femoris Knee flexion 5/5 5/5 L4 Tibialis anterior Dorsiflexion 5/5 4+/5 L5 Extensor hallucis Great toe extension 5/5 4+/5 S1 Gastrocnemius Plantar flexion 5/5 5/5 Thigh adducters 5/5 on the left Movement of LLE limited by pain Normal tone and bulk. No pronator drift. No tremor or abnormal movements. Reflex: Right Left Biceps 2+ 2+ Brachioradialis 2+ 2+ Triceps 2+ 2+ Patellar 2+ 2+ Ankle 2+ 2+ Plantar response (Babinski) mute mute Sensation: decreased to light touch and vibration along l3-l4 and l5-s1 dermatomes on left LLE Coordination: Normal [id number], rapid alternating movements. Pt unable to perform heel to wheat due to pain. Gait: Not assesed Labs: No results found for this or any previous visit (from the past 24 hour(s)). Diagnostic Tests and Imaging: MRI L spine w/wo (08/06) : Interval laminotomy on the left at L5-S1 nonenhancing and T2 bright material the laminotomy bed likely represents fluid or blood products and is a common postoperative finding. This material exerts mild mass effect upon the left aspect of the thecal sac and slightly displaces the S1 and S2 nerve roots anteriorly. MRI pelvis w/o contrast (08/10) 1. Postsurgical changes related to earlier left laminotomy at L5-S1. 2. No nerve injury is identified. 3. At L5-S1 there is partial sacralization on the right. On the left there is a very large osteophyte arising from the disc space. The exiting nerve root at this level is draped over this large outgrowth of bone. The significance of this distortion in the course of the nerve is unclear. Assessment: 54 y/o F p/w intractible LLE pain, ? Of L5-S1 radiculopathy, but it does not seem to have improved with surgery. She may therefore have a lumbosacral plexopathy given the intractable pain and primarilydistal motor weakness in her LLE. We will try some NSAIDS and steroids, and arrange for diagnostic EMG. Plan: -Admit to Neurology -c/w morphine RECREATIONAL LEADER pump -toradaol 30 mg q6hrs PRN -dexamethasone 4 mg daily (restarted) -valium 5 mg q8hrs for spasms -neurontin 300 mg TID -->increased to 400 mg TID -EMG -consider pain consult in AM -regular diet -DVT PPX:SCD's MD Carlos Pager#: [phone] General neurology#[id number] ... I saw and evaluated the patient with Dr. Bush. I have reviewed the resident's history during the visit and I agree with the details as written. My neurological examination confirms the resident's findings. The assessment and plan were formulated in discussion with me at the time of the visit and I agree with them as documented. Discussed at length with patient and family about diagnostic considerations. Explained diagnosis andtreatment of Back pain. I went over medications, indications and side-effects. Patient understands and accepts our plan..Sanju Machado MD documented in this encounter Miscellaneous Notes Discharge Summary - Sanju Machado MD - 08/14/2014 5:28 PM EST Images from the original note were not included. Discharge Summary Patient Name: Fely Shaw Patient Age: 54 y.o. Language: Venezuelan Race: White Ethnicity: Not nor Admit Date: 08/11/2014 Discharge Date: 08/14/2014 Attending Physician: Sanju Machado MD Discharge Physician: Sanju Machado Follow-up Recommendations for Providers: -avoid pain management with narcotics Inpatient Provider Contact Information: For questions regarding this document or issues related to this hospitalization on the Neurology Service, please contact the author(s) of this discharge summary through the [facility] [employer] . Discharge Diagnoses (Hospital Problems) and Secondary Diagnoses (Chronic Problems): Primary Diagnosis: Pain Secondary Diagnosis: none There are no hospital problems to display for this patient. Active Non-Hospital Problems Diagnosis ??? Lumbosacral spondylosis without myelopathy ??? Lumbar strain ??? Lower back pain ??? Finger sprain ??? Left knee pain ??? 12/11/10 ARTHROSCOPY KNEE,MENISCECTOMY SINGLE WITH SHAVING OSC /LEFT/LATERAL Past Medical History Diagnosis Date ??? Lumbosacral spondylosis without myelopathy 06/23/2014 History of Presentation: Fely Shaw is a 54 y.o. healthy female 6 months ago when she began to experience progressive Low back pain that radiated across her hip from buttock to anterior thigh on the left side only. Pain didnot go below the knee. She had numbness and tingling along the same distribution with occasional spasms. It occurred after moving several heavy boxes. She tried TENS and it seemed to work intially, butafter a while it felt as if she was just pushing the pain more posteriorly. She tried meloxicam and had PT, and SUE, but pain got much worse over last 2 weeks. She describe sit as the same type of pain, just more frequent and intense and unresponsive to her meloxicam. She was tried on decadron 4 mg without success as well. She presented to [facility] on 08/04 as she was unable to get out of bed due to the severity of the pain. Transferred to [facility] for neurosurgical intervention, and had MRI that showed far lateral compression at L4 nerve root. Pt had Left L4-L5 hemilaminotomy, medial facetectomy, foraminotomy with L5-S1. After the surgery 08/05, pt developed more pain, and new numbness along L5-S1 distribution (though no pain along lateral side of foot, pain remains at the thigh level). CT nerve block of L5 attempted yesterday did not decrease her pain. She has no issues with bowel or bladder and no problems with the right leg. SHe was transferred to [facility] for further evaluation for possible lumbar plexopathy Physical Exam at Admission VS: BP 140/71 Pulse 94 Temp(Src) 37 ??C (98.6 ??F) (Oral) Resp 18 Ht 172.7 cm (5' 8) Wt 68.2 kg (150 lb 5.7 oz) BMI 22.87 kg/m2 SpO2 94% General: nondiaphoretic, no acute distress. Head/Neck: normocephalic/atraumatic. Oropharynx clear. CV: regular rate/rhythm, no murmurs/rubs/gallops. Pulm: clear to auscultation bilaterally. Extremities: no edema, no joint abnormalities. Neuro: Mental Status: alert, oriented to person, place and time. HEENT/CN: PERRL, EOMI, no ptosis, visual hayes intact. Facial sensation intact, muscles of mastication normal Symmetric smile, eyelids closed equally. Palate elevated symmetrically, midline tongue, no dysarthria. Motor: Segment Muscle Action Right Left C5 Deltoids Biceps Shoulder abduction Elbow flexion 5/5 5/5 C6 Extensor carpi radialis Wrist extension 5/5 5/5 C7 Triceps Elbow extension 5/5 5/5 C8, T1 Hand intrinsics Thumb abduction (rad) Finger flex/ABP (med) Finger abduction (ulnar) 5/5 5/5 L2 Iliopsoas Hip flexion 5/5 4/5 L3 Quadriceps Knee extension 5/5 4/5 L5-S2 Biceps femoris Knee flexion 5/5 5/5 L4 Tibialis anterior Dorsiflexion 5/5 4+/5 L5 Extensor hallucis Great toe extension 5/5 4+/5 S1 Gastrocnemius Plantar flexion 5/5 5/5 Thigh adducters 5/5 on the left Movement of LLE limited by pain Normal tone and bulk. No pronator drift. No tremor or abnormal movements. Reflex: Right Left Biceps 2+ 2+ Brachioradialis 2+ 2+ Triceps 2+ 2+ Patellar 2+ 2+ Ankle 2+ 2+ Plantar response (Babinski) mute mute Sensation: decreased to light touch and vibration along l3-l4 and l5-s1 dermatomes on left LLE Coordination: Normal [id number], rapid alternating movements. Pt unable to perform heel to wheat due to pain. Gait: Not assesed Hospital Course: Fely Shaw was admitted to the neurology services for further evaluation. During the course of stay, patient's symptoms improved slightly. Patient says her lower back pain has improved since her surgery, but since surgery she continued to have hyperalgesia/pain/weakness of the anterior left thigh which improved slightly by the time of discharge. Over the course of stay, Gabapentin was increased [id number] TID. She was given 2 doses of 4mg dexamethasone but declined to continue therapy and after subjective improvement without it, it was deemed unnecessary. The patient had EMG and verbal report was 'no active de- innervation, normal EMG.' Pain management made recommendations below, neurosurgery weighed in second opinion and had no further recommendations but offered outpatient follow-up. She statesshe likely will follow-up with her [facility] neurosurgeon. The patient was evaluated by Rehabilitation Services and deemed appropriate for discharge to home with home PT. Operations/Major Procedures: none Consultations 1. PT/OT 2. Pain management - Agree with all interventions to date. Continue gabapentin escalation.Routine post operative analgesia; tylenol, NSAID unless contra- indicated, oxycodone 5-10mg PO Q 3-4hrs prn. PT,Surgery follow up. 3. Neurosurgery - verbal report, no further recommendations other than letting recovery occur over time. Follow-up offered. Diagnostic Tests & Neuroimaging: Date Study Results ECG CXR CT Head MRI BRAIN 08/14/14 EMG Labs: Recent Results (from the past 72 hour(s)) BASIC METABOLIC PANEL (NON-FASTING) Result Value Range Glucose Lvl 125 60 - 199 mg/dL BUN 19 (*) 8 - 18 mg/dL Creatinine 0.76 0.70 - 1.20 mg/dL Sodium 136 135 - 145 mmol/L Potassium 5.0 3.5 - 5.0 mmol/L Chloride 95 (*) 98 - 107 mmol/L CO2 32 (*) 22 - 31 mmol/L Anion Gap 9 5 - 15 mmol/L Calcium 9.2 8.5 - 10.5 mg/dL Estimated GFR >60 >=60 MAGNESIUM Result Value Range Magnesium 0.97 0.69 - 1.07 mmol/L PHOSPHORUS Result Value Range Phosphorus 3.7 2.5 - 4.5 mg/dL SEDIMENTATION RATE Result Value Range Sed Rate 12 0 - 20 mm/hr HIGH SENSITIVITY CRP Result Value Range CRP High Sens 2.9 HEMOGRAM Result Value Range WBC 8.2 4.0 - 10.0 x10(3)/mcL RBC 4.56 3.93 - 5.22 x10(6)/mcL Hemoglobin 13.9 11.2 - 15.7 gm/dL Hematocrit 40.8 34.0 - 45.0 % MCV 89.5 79.0 - 94.0 fL MCH 30.5 26.6 - 32.2 pg MCHC 34.1 32.0 - 36.5 gm/dL Platelets 255 145 - 370 x10(3)/mcL RDWSD 38.8 35.0 - 46.0 fL RDWCV 11.9 10.9 - 14.4 % MPV 8.8 (*) 9.0 - 12.0 fL DIFFERENTIAL, AUTOMATED Result Value Range Neutrophils % 75.1 Neutr Abs (ANC) 6.17 1.50 - 6.30 x10(3)/mcL Lymphocytes % 14.8 Lymphocytes Abs 1.2 1.0 - 3.6 x10(3)/mcL Monocytes % 9.4 Monocyte Abs 0.8 0.2 - 1.0 x10(3)/mcL Eosinophils % 0.1 Eosinophils Abs 0.0 0.0 - 0.5 x10(3)/mcL Basophils % 0.1 Basophils Abs 0.0 0.0 - 0.2 x10(3)/mcL Immature Gran % 0.50 Archana Gran Abs 0.04 0.00 - 0.05 x10(3)/mcL Pending Studies and Lab Data: none Vital Signs at Discharge: BP: 115/62 mmHg, Heart Rate: 78, Temp: 36.4 ??C (97.5 ??F), Resp: 20, BMI (Calculated): 22.9 Height: 172.7 cm (5' 8) (08/11/14 2136) Weight - Scale: 73.2 kg (161 lb 6 oz) (08/12/14 2230) Functional and Cognitive Status: Baseline, A/O x 4 Physical Exam at Discharge: General: nondiaphoretic, no acute distress. Head/Neck: normocephalic/atraumatic. Oropharynx clear. CV: regular rate/rhythm, no murmurs/rubs/gallops. Pulm: clear to auscultation bilaterally. Extremities: no edema, no joint abnormalities. Neuro: Mental Status: alert, oriented to person, place and time. HEENT/CN: PERRL, EOMI, no ptosis, visual hayes intact. Facial sensation intact, muscles of mastication normal Symmetric smile, eyelids closed equally. Palate elevated symmetrically, midline tongue, no dysarthria. Motor: Segment Muscle Action Right Left C5 Deltoids Biceps Shoulder abduction Elbow flexion 5/5 5/5 C6 Extensor carpi radialis Wrist extension 5/5 5/5 C7 Triceps Elbow extension 5/5 5/5 C8, T1 Hand intrinsics Thumb abduction (rad) Finger flex/ABP (med) Finger abduction (ulnar) / 5/5 L2 Iliopsoas Hip flexion / 4/5 L3 Quadriceps Knee extension 5/5 4/5 L5-S2 Biceps femoris Knee flexion 01/30 4/5 L4 Tibialis anterior Dorsiflexion 01/30 4+/5 L5 Extensor hallucis Great toe extension 01/30 4+/5 S1 Gastrocnemius Plantar flexion 01/30 5/5 Thigh adducters 5/5 on the left Reflex: Right Left Biceps 2+ 2+ Brachioradialis 2+ 2+ Triceps 2+ 2+ Patellar 2+ 2+ Ankle 2+ 2+ Plantar response (Babinski) mute mute Sensation: decreased to light touch and vibration along l3-l4 and l5-s1 dermatomes on left LLE, unchanged Gait: Not assesed Discharge Conditions/Prognosis: Good Discharge to: Home Updated Allergies/ADRs: Allergies Allergen Reactions ??? Honey Bee Venom Protein Anaphylaxis ??? Wasp Venom Anaphylaxis ??? White-Faced Hornet Venom Anaphylaxis ??? Yellow Hornet Venom Anaphylaxis ??? Yellow Jacket Venom Anaphylaxis ??? Cis Free Text Allergy food dyes - Hives( gel type medication- bright red and yellow) ??? Cyclobenzaprine Photosensitivity Immunizations Given this Hospitalization: Immunization History Administered Date(s) Administered ??? Hepatitis A Vaccine, unspecified formulation 03/11/2013 ??? Influenza PF, Split 06/27/2012, 06/20/2013, 07/06/2014 ??? Influenza Vaccine (Novel) [id number], Injectable 08/01/2009 ??? Influenza Vaccine w/Preservative, Split 07/07/2011 ??? Influenza Vaccine, Whole 06/15/2009 ??? Td, adult 12/23/2013 ??? Tdap Vaccine 01/28/2006 ??? Typhoid, VICP 03/11/2013 Discharge Medications: Your Medications Notice Some of the medications listed here do not show instructions, such as how often to take the medication. Ask your doctor or nurse how to use these medications. Specifically ask about these and similar medications: - cetirizine (ZYRTEC) 10 mg tablet - VITAMIN E ACETATE (VITAMIN E ORAL) - Black Cohosh 40 mg Tab New Medications Dose Details esomeprazole 40 mg Cpdr Commonly known as: NexIUM Take 1 capsule by mouth daily. 40 mg Quantity: 30 capsule Refills: 12 Continued medications with new dosing Dose Details diaZEPam 5 mg Tab Commonly known as: VALIUM Take 1 tablet by mouth every 6 hours as needed for Anxiety (spasm). What changed: when to take this 5 mg Quantity: 5 tablet Refills: 0 gabapentin 300 mg Cap Commonly known as: NEURONTIN Take 3 capsules by mouth 3 times daily. What changed: how much to take 900 mg Quantity: 90 capsule Refills: 12 Continued medications, unchanged Dose Details Black Cohosh 40 mg Tab Refills: 0 Calcium 500 mg Tab Take 1,000 mg by mouth daily. 1000 mg Refills: 0 meloxicam 7.5 mg Tab Commonly known as: MOBIC Take 1 tablet by mouth daily. 7.5 mg Quantity: 30 tablet Refills: 12 VITAMIN E ORAL Refills: 0 ZyrTEC 10 mg Tab Generic drug: cetirizine Refills: 0 STOPPED Medications dexamethasone 4 mg Tab Commonly known as: DECADRON Morphine in NaCl 0.9 % 30 mg/30 mL (1 mg/mL) Spca oxyCODONE 5 mg Tab Commonly known as: ROXICODONE Smoking Status at Discharge: Non-smoker Instructions Given to Patient at Discharge: Patient Instructions You were admitted to the neurology service at [facility]. Your diagnosis: pain Medication Changes: Stop these medications: oxycodone Change these medications:Gabapentin 900mg three times daily Patient Instructions: ??? Call your doctor or seek medical attention if you have ??? weakness or numbness in your face or one of your limbs or difficulty speaking ??? loss of vision ??? seizures or loss of consciousness ??? Diet: we recommend a heart healthy diet: low fat, low cholesterol, low concentrated sweets. ??? Activity Restrictions: none ??? Driving Restrictions: Drive when you feel like you have full strength ??? Home oxygen therapy: none needed ??? Anticoagulation Follow-up and Instructions: none FOLLOWUP APPOINTMENT: You will have an outpatient followup appointment in the neurology clinic at [facility]. If not already listed in this document, we will contact you to schedule this appointment. -- If 1 week passes by after you are discharged and you still do not have an appointment, please call [phone]. General Instructions None Future Appointments and Orders Future Orders Complete By Expires Referral to Home Health - at DISCHARGE [[id number] CPT(R)] As directed Process Instructions: Scheduling Instructions: Comments: PATIENT'S LOCATION: Fely Shaw [address] [place] [address] (home) Cell: Telephone Information: In discussion with the attending physician, it is certified that this patient is under their care and that they, or a Nurse Practitioner,Clinical Nurse specialist or Physician [employer] who is working directly with them, had a face to face encounter that meets the physician face to face encounter requirements with this patient on 08/14/2014 The encounter with the patient was in whole, or in part, for the following medical condition, which is the primary reason for home health care services: s/p decompression lami with pain In discussion with the provider, it is certified that, based on their findings, the following services are medically necessary for home health services. To provide the following care/treatments with the clinical findings supporting the need for servicesas follows: HOME CARE ORDERS: PT ORDERS: Continue rehab for endurance, gait stability and strength with mobility and transfers. Home safety evaluation. Home exercise program if appropriate. [facility] PHONE:[phone] FAX: [phone] [facility]: Start of care: 08/15 Please note that any additional orders needs or changes will need to be obtained from this patient'sPCP: KATIUSKA WHEATLEY, MODEL ENGINE MECHANIC [address] [facility] [place] [address] All VNA agencies which cover the area of patient's residence have been reviewed, either verbally or in writing, and patient/family have chosen the home health care agency noted Questions: Agency name and contact information: [facility] Patient location post discharge: home What services are requested: Physical Therapy Start date: 08/15/2014 Responsible MD post discharge contact info: pcp Walker standard [EQ135 Custom] As directed Process Instructions: Obtain item from unit stock or contact Inventory & Logistics or Transport Services for appropriate supplies or equipment Scheduling Instructions: Comments: Questions: Vendor Name/Contact information: [facility] Comment - please deliver to her room WALESKA- [id number], [id number] Primary Care Provider: KATIUSKA WHEATLEY, MODEL ENGINE MECHANIC [address] [facility] [address] Discharge References/Attachments None The assessment and plan were formulated in discussion with me at the time of the visit and I agree with them as documented. .Sanju Machado MD Plan of Care - Deepa Andrade RN - 08/14/2014 1:59 PM EST Problem: General Plan of Care Goal: Plan of Care Review Outcome: Ongoing (Interventions Implemented as Appropriate) OUTCOME SUMMARY: VSS, PERRL, A&Ox4, 5/5 strengths all extremities. Lungs clear. bowel sounds in all quadrants. Patient wears glasses PLAN MOVING FORWARD: Plans for D/C to Home possibly on Thursday. Continue pain management regimen. Continue to monitor numbness, burning in left anterior thigh INDIVIDUALIZED FALL PREVENTION: fall risk precautions maintained. Bed in low position. Bed alarms with 3 side rails raised at all times patient is in bed. stand by assist when patient is out of bed. Staff in bathroom with patient at all times. Tolieting offered. Bathing/hygeine/dressing assistance provided while encouraging independence. Environment clear of obstacles/tripping hazard. Lighting provided/adjusted. Patient taught use of call lindsey call lindsey within reach at all times. Patient will remain free from falls this shift. ASSISTANCE: To ambulate patient is SBA with Walker SUPERVISION: Patient is independent with all ADL's, Stand by supervision SURVEILLANCE: Purposeful rounding done GOAL OUTCOME EVALUATION: Problem: Skin Integrity Impairment, Risk/Actual (Adult, Obstetrics) Goal: Identify Signs and Symptoms and Related Risk Factors Signs and symptoms and related risk factors are identified upon initiation of Human Response Clinical Practice Guideline (CPG) Outcome: Ongoing (Interventions Implemented as Appropriate) 08/14/14 1351 Skin Integrity Impairment, Risk/Actual Treatment Related Related Risk Factors (Skin Integrity Impairment, Risk/Actual) surgery Skin is clean dry and intact. No s/s of pressure ulcers or breakdown present. Specialty bed utilized. HOB elevated. Pressure points/heels off bed. Food preferences provided. Supplemental drinks provided. Oral hygiene/rinse provided. Activity/mobility provided. Cleansing/protectant products provided. Chair cushion provided when patient is sitting. Patient repositions self. Skin will remain clear of pressure ulcers during this shift. skin to skin areas protected, skin to device areas protected. Tubing/devices free from under patient. Turn sheet used. Pulse oximeter probe site changed. Midline lower back Incision is C/D/I, well approximated. Dressing is C/D/I . Will continue to monitor. Problem: Pain, Acute (Adult, Obstetrics) Goal: Identify Signs and Symptoms and Related Risk Factors Signs and symptoms and related risk factors are identified upon initiation of Human Response Clinical Practice Guideline (CPG) Outcome: Ongoing (Interventions Implemented as Appropriate) 08/14/14 1351 Pain, Acute Related Risk Factors (Acute Pain) disease process;surgery Signs and Symptoms (Acute Pain) facial mask of pain/grimace;sleep pattern alteration;verbalization of pain descriptors Patient has intracable pain with shooting spasms/pains in LLE - burning & numbness in anterior thigh, no numbness at knee to mid calf, numbness from mid calf to foot lateral side. No numbness medial side, feeling starting to come back in great toe and second toe. Pain treated with around the clock dosing of gabapentin and valium along with PRN acetaminophen and oxycodone. Medication dose titrated to patient response. Premedicated for activity/PT/OT. Prophylactic bowel regimen utilized. Activity promoted Cold at left hip and heat at left thigh application utilized. Clustered care. Diversional activity provided. Environment adjusted. Repositioned/pillow support/ elevation of knees/legs. Presence/empathetic listening provided. 0730: 7 /10.pain treated with 5mg oxycodone 1130: 7/10 pain treated with 5mg oxycodone 1300: 10/10 pain treated with 650mg acetaminophen. 1400: 7/10 pain treated with around the clock dosing of 900mg gabapentin and 5mg valium 1600 6/10 pain, with 8/10 shooting pain, treated with 5mg oxycodone Consult Note - Gian Julien MD - 08/14/2014 1:46 PM EST Acute Pain Service Consultation Pt Age: 54 y.o. Date of Consultation: 08/14/2014 Consult Service: Acute Pain Place of Service: Bedside Responsible Attending: Loyda Housestaff/Associate Provider: None Consultation Reason: I am seeing Fely Shaw in consultation at the requests of Dr. Machado for my opinion regarding analgesia recommendations. History of Present Illness: HPI 54 yo female s/p L4-5 hemilaminectomy at OSH on 08/05/2014 admitted 08/11 for increased LLE pain and numbness. Neurology w/u including EMG essentially rules out denervation. Review of Systems: Review of Systems Minimal sedation on present RX Since admission pain has improved somewhat. C/o left thigh hypersensitivity. Bowel/bladder OK 5mg oxycodone helps but 10mg is too sedating Pain is tolerable on present RX Past Medical and Surgical History: Past Medical History Diagnosis Date ??? Lumbosacral spondylosis without myelopathy 06/23/2014 No past surgical history on file. ADR/Allergies: Allergies Allergen Reactions ??? Honey Bee Venom Protein Anaphylaxis ??? Wasp Venom Anaphylaxis ??? White-Faced Hornet Venom Anaphylaxis ??? Yellow Hornet Venom Anaphylaxis ??? Yellow Jacket Venom Anaphylaxis ??? Cis Free Text Allergy food dyes - Hives( gel type medication- bright red and yellow) ??? Cyclobenzaprine Photosensitivity Pertinent Medications: Current facility-administered medications:gabapentin (NEURONTIN) capsule 900 mg, 900 mg, Oral, TID, Lavelle Wall MD; diaZEPam (VALIUM) tablet 5 mg, 5 mg, Oral, Q8H, Carlos Bush MD, 5 mg at 08/14/14 0556; oxyCODONE (ROXICODONE) immediate release tablet 5-10 mg, 5-10 mg, Oral, Q3H PRN, Carlos Kaufman MD, 5 mg at 08/14/14 1050; esomeprazole (NexIUM) capsule 40 mg, 40 mg, Oral, Daily, Carlos Bush MD, 40 mg at 08/14/14 0805 sodium chloride 0.9 % flush 5 mL, 5 mL, Intravenous, BID, Carlos Bush MD, 5 mL at 08/14/14 0806; sodium chloride 0.9 % flush 5-20 mL, 5-20 mL, Intravenous, Q1 Min PRN, Carlos Bush MD;lidocaine (XYLOCAINE) 10 mg/mL (1 %) injection 3 mg, 0.3 mL, Subcutaneous, Once PRN, Carlos Bush MD; bisacodyl (DULCOLAX) suppository 10 mg, 10 mg, Rectal, Daily PRN, Carlos Bush MD, 10 mg at 08/13/14 1613 magnesium hydroxide (MILK OF MAGNESIA) oral suspension 10 mL, 10 mL, Oral, Daily PRN, Carlos Bush MD; acetaminophen (TYLENOL) tablet 650 mg, 650 mg, Oral, Q6H PRN, Carlos Bush MD, 650mg at 08/14/14 1259 Family History: No family history on file. Social History: History Social History ??? Marital Status: Spouse Name: N/A Number of Children: N/A ??? Years of Education: N/A Occupational History ??? Not on file. Social History Main Topics ??? Smoking status: Former Smoker Types: Cigarettes Quit date: 08/12/2009 ??? Smokeless tobacco: Never Used ??? Alcohol Use: Yes ??? Drug Use: Not on file ??? Sexual Activity: Not on file Other Topics Concern ??? Not on file Social History Narrative Physical Exam: Last Set of Vitals: BP 111/69 Pulse 77 Temp(Src) 36.7 ??C (98.1 ??F) (Oral) Resp 18 Ht 172.7 cm (5' 8) Wt 73.2 kg (161 lb 6 oz) BMI 24.54 kg/m2 SpO2 98% Physical Exam WDWN No acute distress Appears alert Affect is appropriate No overt pain gestures during interview. Neurology exam reviewed Assessment: There is objective evidence of a painful disorder: 9 days post op. Hard to distinguish which symptoms will resolve vs progress. I have discussed with the pt the risks and side effects of opioid medications that include, but are not limited to: residential abuse potential, constipation and sexual dysfunction. Patient is at minimalrisk for abuse. Recommendation: Agree with all interventions to date. Continue gabapentin escalation. Routine post operative analgesia; tylenol, NSAID unless contra-indicated, oxycodone 5-10mg PO Q 3-4hrs prn. PT Surgery follow up. Recommendations are above, please page if further consultation required. GIAN JULIEN MD 08/14/2014 beeper # [id number] Initial Assessments - Elly Luis, PT - 08/14/2014 11:53 AM EST Physical Therapy Neuro Evaluation Patient profile: Pt is a 54 y.o female adm 08/11/[address] Machado, Sanju Galdamez MD from OSH with leftleg pain and numbness with imaging consistent with severe L5-S1 level degeneration with neuroforaminal compromise, now s/p decompression at OSH.. Pt awaiting Neuro- surgery consult. PMH: Past Medical History Diagnosis Date ??? Lumbosacral spondylosis without myelopathy 06/23/2014 No past surgical history on file. Social History: Patient lives with in old farmhouse on first floor with multiple stairs to enter. Tub shower in bathroom with grab bars. Pt works at [employer] [place] Baseline Mobility: I prior to surgery, used cane or walker after surgery Equipment at home: walker, cane ( tripod) Precautions/Special Considerations: orders: up with A, fall risk Staff Communication/Mobility Recommendations: amb with cane or walker and S S: c/o leg pain O: Pt seen for initial evaluation Vitals: Last value Range last 8 hrs Temperature Temp: 36.7 ??C (98.1 ??F) Temp: [36.6 ??C (97.9 ??F)-36.7 ??C (98.1 ??F)] Heart Rate Heart Rate: 77 Heart Rate: [77-79] Blood Pressure BP: 111/69 mmHg BP: (111-118)/(66-69) Respiratory Rate Resp: 18 Resp: [16-18] SpO2 SpO2: 98 % SpO2: [98 %-99 %] Communication: WNL Mental Status/Behavior: Pleasant, alert, oriented Pain: 6/10 left ant leg pain, increased after mob Sensation: decreased light touch left thigh and left lat foot and calf, Pt describes decreased proprioception, but tested WNL. Pt reports hypersensitivity left LE Vision/Perception: NT Skin/Soft Tissue: NT ROM: WNL Neuromuscular: UES and right LE: 5/5 Left LE: hip flex: 4/5, knee ext 4+/5, knee flex: 4/5, DF: 4+/5, PF: 5-/5 Bed Mobility: I Balance: Sitting balance: good Standing balance: static: able to stand unsupported with eyes open, - Romberg, but increased ant/ post sway Anticipatory: limited when reaching with left Reactive: all balance reactions present, but decreased Dynamic/gait balance: unsteady Transfers: sit- stand with S, bed- chair with S Gait: Pt amb 300+ feet with cane ( pt has her own tripod cane here) and S, decreased speed, decreased knee flex on left, step length decreased on left Stairs: up and down 8 stairs with railing and cane and S, step to pattern Five Times Sit to Stand Test Time to complete 5 stands: 28 s Normal Values: -(Arlet, 2000) Greater than 13.6 seconds indicates increased disability and morbidity. -(Elaine et al., 2008) The optimal cutoff time for performing the FTSS test in predicting recurrent fallers was 15 seconds References: Niyah Nice, Erlinda Contreras et al. (2000). Lower extremity function and subsequent disability: consistency across studies, predictive models, and value of gait speed alone compared with the short physical performance battery. J Gerontol A Biol Sci Med Sci 55(4): M221-31. Elaine S, Carri D, Ellen P, Yadi R, Desmond P, Calista G et al. Five times sit to stand test is a predictor of recurrent falls in healthy community?living subjects aged 65 and older. J Am Geriatr Soc 2008; 56(8):1575?1577 Timed Up & Go (TUG) Average of two trials (seconds): 23 seconds Assistive device used: cane Normal test = < 10 seconds > 13.5 seconds = fall risk Drew S, Leilani USL, Paty B. Balance in Elderly Patients:THe Get-up and Go Test. Arch Phys Med Rehabil 1986; 67:387-389. Informed Consent: The understands and agrees to the PT treatment plan and goals. 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 She was able to amb with a cane and S. She scores at fall risk on 5 sit- stand test and on 'TUG'. Rec use of cane or walker for safety and Home PT to max safety in her home. Pt will benefit from ongoing therapeutic interventions as outlined below to achieve the following goals Goals: Pt will achieve the following by DC 1. Demonstrate knowledge of safety limitations and precautions and will appropriately request assistance for functional activities and to mobilize. 2. Ambulate min 300 feet with cane and distant S, 3-5x/ day 3. Family or caregiver to demonstrate understanding of therapeutic interventions including safe and correct assistive techniques, positioning to decrease risk of skin breakdown, contractures, and loss of range of motion to support the care of the patient. Plan: Pt to be seen 1-3x per week for therapy including Safety , Equipment use, Gait and Discharge planning and pt /family/caregiver education. Equipment needs: Pt has a FWW and tripod cane- will issue straight cane Discharge Recommendations: Patient would benefit from continued therapeutic interventions 2-3 times a week as provided in a home environment to progress toward functional goals. No other consults recommended at this time Total time spent with patient: 46 minutes Total timed interventions: 0 minutes Pager: [phone] ELLY LUIS PT 08/14/2014 Physical Therapy Rehabilitation Department Plan of Care - Emilia Balderas RN - 08/14/2014 2:48 AM EST Problem: General Plan of Care Goal: Plan of Care Review 08/14/14238 Plan of Care Review Plan of Care Outcome Status ongoing (interventions implemented as appropriate) Progress progress toward functional goals as expected Coping/Psychosocial Response Interventions Plan of Care Reviewed with patient Medicated x 1 (so far this shift) per MAR. Very sleepy post oxycodone, awoken @2315 for dose of Diazepam which she refused (see MAR documentation). Goal: Fall Prevention-Safe Patient Handling 08/13/14 0800 08/13/14201908/13/142129 Musculoskeletal Interventions Activity/Level of Assistance -- -- up in florentino Positioning independent -- -- Muscle Strengthening -- -- -- Self-Care Promotion -- -- -- Robbins Fall Risk History of Falling -- 0 -- Secondary Diagnosis -- 15 -- Ambulatory Aids -- 15 -- Intravenous Therapy/Heparin/Saline Lock -- 20 -- Gait/Transferring -- 10 -- Mental Status -- 0 -- Score -- 60 -- Activity and Safety Assistive Device -- -- Front wheel walker OTHER Robbins Fall Risk -- High (45 and higher) -- Safety Interventions Safety Precautions/Fall Reduction -- -- fall reduction program maintained;lighting adjusted for task/safety;nonskid shoes/slippers when out of bed;toileting scheduled 08/14/14238 Musculoskeletal Interventions Activity/Level of Assistance -- Positioning -- Muscle Strengthening activity/mobility promoted Self-Care Promotion independence encouraged while providing assistance Robbins Fall Risk History of Falling -- Secondary Diagnosis -- Ambulatory Aids -- Intravenous Therapy/Heparin/Saline Lock -- Gait/Transferring -- Mental Status -- Score -- Activity and Safety Assistive Device -- OTHER Robbins Fall Risk -- Safety Interventions Safety Precautions/Fall Reduction -- Problem: Skin Integrity Impairment, Risk/Actual (Adult, Obstetrics) Goal: Identify Signs and Symptoms and Related Risk Factors Signs and symptoms and related risk factors are identified upon initiation of Human Response Clinical Practice Guideline (CPG) 08/12/14 0188 Skin Integrity Impairment, Risk/Actual Physiological Related Risk Factors (Skin Integrity Impairment, Risk/Actual) sensory impairment Treatment Related Related Risk Factors (Skin Integrity Impairment, Risk/Actual) medication;physical immobilization;surgery Goal: Skin Integrity/Wound Healing Patient will demonstrate the desired outcomes. 08/14/14238 Skin Integrity Impairment, Risk/Actual (Adult, Obstetrics) Skin Integrity/Wound Healing making progress toward outcome Problem: Pain, Acute (Adult, Obstetrics) Goal: Identify Signs and Symptoms and Related Risk Factors Signs and symptoms and related risk factors are identified upon initiation of Human Response Clinical Practice Guideline (CPG) 08/12/14 0822 08/14/14238 Pain, Acute Related Risk Factors (Acute Pain) disease process;fatigue;surgery -- Signs and Symptoms (Acute Pain) -- alteration in muscle tone Goal: Acceptable Pain Control/Comfort Level Patient will demonstrate the desired outcomes. 08/14/14238 Pain, Acute (Adult, Obstetrics) Acceptable Pain Control/Comfort Level making progress toward outcome Problem: Laminectomy, Laminotomy, Foraminotomy, Laminoplasty, Discectomy (Adult) Goal: Signs and symptoms of listed potential problems will be absent or manageable (reference (Laminectomy, Laminotomy, Foraminotomy, Laminoplasty, Discectomy (Adult)) CPG) 08/14/14238 Laminectomy, Laminotomy, Foraminotomy, Laminoplasty, Discectomy Problems Assessed (Laminectomy, Laminotomy, Foraminotomy, Laminoplasty, Discectomy) acute pain Problems Present (Laminectomy, Laminotomy, Foraminotomy, Laminoplasty, Discectomy) acute pain Plan of Care - Valerie Castro RN - 08/13/2014 5:50 PM EST Problem: General Plan of Care Goal: Plan of Care Review Outcome: Ongoing (Interventions Implemented as Appropriate) 08/13/14 1750 Plan of Care Review Plan of Care Outcome Status ongoing (interventions implemented as appropriate) Progress progress toward functional goals as expected Coping/Psychosocial Response Interventions Plan of Care Reviewed with patient;spouse Comments: Pain management today kept the patient at a level 7 today. Pt vitals WNL, pt willing to sit up in chair for dinner although the pain in her thigh did escalate while she was up and OOB. Pt able to carryon normal conversationwith the exception of a short Facial grimace from a shooting pain every oncein a while. Plan of Care - Deepa Andrade RN - 08/12/2014 11:18 PM EST Problem: General Plan of Care Goal: Plan of Care Review 08/12/142301 Plan of Care Review Plan of Care Outcome Status ongoing (interventions implemented as appropriate) Progress progress toward functional goals as expected Coping/Psychosocial Response Interventions Plan of Care Reviewed with patient OUTCOME SUMMARY: VSS, PERRL, A&Ox4, 5/5 strengths all extremities. Lungs clear. bowel sounds in all quadrants. Patient had several BM this shift. Patient stated she had not gone in over a week before yesterday. Patient wears glasses Patient slept well this shift. Will continue to monitor. visitors spent night Laura Shaw CHRISTOPHE PLAN MOVING FORWARD: Pain management Continue to monitor numbness, burning in left anterior thigh INDIVIDUALIZED FALL PREVENTION: fall risk precautions maintained. Bed in low position. Bed alarms with 3 side rails raised at all times patient is in bed. Tabs/chair alarms on at all times when patient is out of bed.stand by assist when patient is out of bed. Staff in bathroom with patient at all times. Tolieting offered. Bathing/hygeine/dressing assistance provided while encouraging independence. Environment clear of obstacles/tripping hazard. Lighting provided/adjusted. Patient taught use of call lindsey call lindsey within reach at all times. Patient will remain free from falls this shift. ASSISTANCE: To ambulate patient is with alker SUPERVISION: hands on assist with all ADL's, in bathroom with patient at all times. SURVEILLANCE: Purposeful rounding done GOAL OUTCOME EVALUATION: Problem: Skin Integrity Impairment, Risk/Actual (Adult, Obstetrics) Goal: Identify Signs and Symptoms and Related Risk Factors Signs and symptoms and related risk factors are identified upon initiation of Human Response Clinical Practice Guideline (CPG) Outcome: Ongoing (Interventions Implemented as Appropriate) 08/12/142301 Skin Integrity Impairment, Risk/Actual Physiological Related Risk Factors (Skin Integrity Impairment, Risk/Actual) sensory impairment Treatment Related Related Risk Factors (Skin Integrity Impairment, Risk/Actual) medication;physical immobilization;surgery Skin is clean dry and intact. No s/s of pressure ulcers or breakdown present. Specialty bed utilized. HOB elevated. Pressure points/heels off bed. Supplemental drinks provided. Oral hygiene/rinse provided. Activity/mobility provided. Cleansing/protectant products provided. Patient repositions self . Pa tient will remain free of pressure ulcer or breakown this shift skin to skin areas protected, skin to device areas protected. Tubing/devices free from under patient.Turn sheet used. Pulse oximeter probe site changed. Incision is C/D/I, well approximated. Dressing is C/D/I no drainage. Will continue to monitor. Problem: Pain, Acute (Adult, Obstetrics) Goal: Identify Signs and Symptoms and Related Risk Factors Signs and symptoms and related risk factors are identified upon initiation of Human Response Clinical Practice Guideline (CPG) Outcome: Ongoing (Interventions Implemented as Appropriate) 08/12/14 2302 Pain, Acute Related Risk Factors (Acute Pain) disease process;fatigue;surgery Signs and Symptoms (Acute Pain) fatigue/weakness;sleep pattern alteration;verbalization of pain descriptors Patient has pain 5- 7 /10 in lower extremities, numbness with burning anterior thigh LLE. Medicationdose titrated to patient response. Premedicated for activity. Prophylactic bowel regimen utilized. Activity promoted. Cold application utilized. Clustered care. Diversional activity provided. Environment adjusted. Repositioned/pillow support/ elevation of bilateral lower extremities. Presence/empathetic listening provided. Nursing discussed the importance of good pain mangagement vs becoming too somnolent. 20:30: 7/10 pain treated with 10mg oxycodone PRN and around the clock dosing with Neurontinwith somerelief. 0000: 7510 pain treated with around the clock dosing of 5mg valuim PO and 30mg Ketroladol IV patientsomewhat somnolent, easily arousalible. Patient ambulated to bathroom with 1 assist and walker, was initially dizzy but resolved after standing a few minutes. Burning sensation in Left anterior thigh, numbness resolving. 0430 7/10 pain treated with 10mg oxycodone and 650mg acetaminophen. Patient no longer somnolent. Will continue to monitor 0630: 8/10 pain, when spasms 10/10 pain, spasms have increased since she woke up. Treated with around the clock dosing of 5mg valium PO and 30mg ketroladol IV. Will continue to monitor. Problem: Laminectomy, Laminotomy, Foraminotomy, Laminoplasty, Discectomy (Adult) Goal: Signs and symptoms of listed potential problems will be absent or manageable (reference (Laminectomy, Laminotomy, Foraminotomy, Laminoplasty, Discectomy (Adult)) CPG) 08/12/14 9066 Laminectomy, Laminotomy, Foraminotomy, Laminoplasty, Discectomy Problems Assessed (Laminectomy, Laminotomy, Foraminotomy, Laminoplasty, Discectomy) acute pain;constipation;neurologic/neuromuscular deterioration/deficit Problems Present (Laminectomy, Laminotomy, Foraminotomy, Laminoplasty, Discectomy) acute pain Patient has acute pain Level 5-7/10. Incision C/D/I. Plan of Care - Cata Morales RN - 08/12/2014 6:48 PM EST Problem: General Plan of Care Goal: Plan of Care Review Outcome: Ongoing (Interventions Implemented as Appropriate) OUTCOME EVALUATION NOTE: OUTCOME SUMMARY: Pt continues to have anterior thigh numbness/pain. 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 Pain has been moderately controlled, with 1hr pain reassessments at 4-5/10, which is tolerable for pt. 1200- pt c/o new burning/heat sensation in anterior thigh. aware. Will continue to monitor Pt states that increased sensation is returning to feet and toes during shift. PLAN MOVING FORWARD: Continue pain management. Encourage independence and ambulation in florentino. INDIVIDUALIZED FALL PREVENTION: Assistance: 1-assist Supervision: Standby Surveillance: Lisao, purposeful hourly rounding CPG GOAL OUTCOME EVALUATION: Problem: Skin Integrity Impairment, Risk/Actual (Adult, Obstetrics) Goal: Identify Signs and Symptoms and Related Risk Factors Signs and symptoms and related risk factors are identified upon initiation of Human Response Clinical Practice Guideline (CPG) Outcome: Ongoing (Interventions Implemented as Appropriate) 08/12/14 0655 Skin Integrity Impairment, Risk/Actual Personal Related Risk Factors (Skin Integrity Impairment, Risk/Actual) sleep deprivation;stress Physiological Related Risk Factors (Skin Integrity Impairment, Risk/Actual) sensory impairment Treatment Related Related Risk Factors (Skin Integrity Impairment, Risk/Actual) medication Goal: Skin Integrity/Wound Healing Patient will demonstrate the desired outcomes. Outcome: Ongoing (Interventions Implemented as Appropriate) 08/12/14 0655 Skin Integrity Impairment, Risk/Actual (Adult, Obstetrics) Skin Integrity/Wound Healing making progress toward outcome Problem: Pain, Acute (Adult, Obstetrics) Goal: Identify Signs and Symptoms and Related Risk Factors Signs and symptoms and related risk factors are identified upon initiation of Human Response Clinical Practice Guideline (CPG) Outcome: Ongoing (Interventions Implemented as Appropriate) 08/12/14 0655 Pain, Acute Related Risk Factors (Acute Pain) anxiety Signs and Symptoms (Acute Pain) alteration in muscle tone Plan of Care - Shahnaz Guido RN - 08/12/2014 7:03 AM EST Problem: General Plan of Care Goal: Plan of Care Review Outcome: Ongoing (Interventions Implemented as Appropriate) OUTCOME EVALUATION NOTE: OUTCOME SUMMARY: Pt had 7-8/10 pain upon admission.Pain controlled with RECREATIONAL LEADER and PRN pain medication.Ambulates with one person assist with slow gait. PLAN MOVING FORWARD: Continue to monitor for pain. Encourage pt to ambulate in room/hallway when pain is under control. INDIVIDUALIZED FALL PREVENTION: Assistance:One person stand by assist. Supervision: bed alarm . Hourly round CPG GOAL OUTCOME EVALUATION: Goal: Individualization and Mutuality Outcome: Ongoing (Interventions Implemented as Appropriate) Goal: Fall Prevention-Safe Patient Handling Outcome: Ongoing (Interventions Implemented as Appropriate) 08/11/14 2030 08/11/14 2200 08/12/14 0230 Safety Interventions Safety Precautions/Fall Reduction family at bedside;lighting adjusted for task/safety;low bed -- -- Musculoskeletal Interventions Activity/Level of Assistance -- -- up in room;ambulated;with stand by assist Positioning -- HOB up 30 degrees -- Problem: Skin Integrity Impairment, Risk/Actual (Adult, Obstetrics) Goal: Identify Signs and Symptoms and Related Risk Factors Signs and symptoms and related risk factors are identified upon initiation of Human Response Clinical Practice Guideline (CPG) Outcome: Ongoing (Interventions Implemented as Appropriate) 08/12/14 0655 Skin Integrity Impairment, Risk/Actual Personal Related Risk Factors (Skin Integrity Impairment, Risk/Actual) sleep deprivation;stress Physiological Related Risk Factors (Skin Integrity Impairment, Risk/Actual) sensory impairment Treatment Related Related Risk Factors (Skin Integrity Impairment, Risk/Actual) medication Goal: Skin Integrity/Wound Healing Patient will demonstrate the desired outcomes. Outcome: Ongoing (Interventions Implemented as Appropriate) 08/12/14 0655 Skin Integrity Impairment, Risk/Actual (Adult, Obstetrics) Skin Integrity/Wound Healing making progress toward outcome Problem: Pain, Acute (Adult, Obstetrics) Goal: Identify Signs and Symptoms and Related Risk Factors Signs and symptoms and related risk factors are identified upon initiation of Human Response Clinical Practice Guideline (CPG) Outcome: Ongoing (Interventions Implemented as Appropriate) 08/12/14 0655 Pain, Acute Related Risk Factors (Acute Pain) anxiety Signs and Symptoms (Acute Pain) alteration in muscle tone Goal: Acceptable Pain Control/Comfort Level Patient will demonstrate the desired outcomes. Outcome: Ongoing (Interventions Implemented as Appropriate) 08/12/14 0655 Pain, Acute (Adult, Obstetrics) Acceptable Pain Control/Comfort Level making progress toward outcome Problem: Laminectomy, Laminotomy, Foraminotomy, Laminoplasty, Discectomy (Adult) Goal: Signs and symptoms of listed potential problems will be absent or manageable (reference (Laminectomy, Laminotomy, Foraminotomy, Laminoplasty, Discectomy (Adult)) CPG) Outcome: Ongoing (Interventions Implemented as Appropriate) 08/12/14 0655 Laminectomy, Laminotomy, Foraminotomy, Laminoplasty, Discectomy Problems Assessed (Laminectomy, Laminotomy, Foraminotomy, Laminoplasty, Discectomy) all Problems Present (Laminectomy, Laminotomy, Foraminotomy, Laminoplasty, Discectomy) acute pain;constipation documented in this encounter Plan of Treatment Upcoming Encounters Date Type Specialty Care Team Description 08/07/2022 [facility] Nahid Carl PsyD (TeleHealth) [facility] [address] [place] [address] (Wo rk) documented as of this encounter Procedures Procedure Name Priority Date/Time Associated Comments Diagnosis HEMOGRAM Routine 08/11/2014 9:55 PM Results f or this EST procedure are i n the results section. DIFFERENTIAL, Routine 08/11/2014 9:55 PM Results for this AUTOMATED EST procedure are i n the results section. SEDIMENTATION RATE Routine 08/11/2014 9:55 PM Res ults for this EST procedure are i n the results section. CBC (WITH DIFF) Routine 08/11/2014 9:55 PM EST CRP, CARDIAC RISK (HS Routine 08/11/2014 9:55 PM Results for this CRP) EST procedure are i n the results section. PHOSPHORUS Routine 08/11/2014 9:55 PM Results f or this EST procedure are i n the results section. MAGNESIUM Routine 08/11/2014 9:55 PM Results f or this EST procedure are i n the results section. BASIC METABOLIC PANEL Routine 08/11/2014 9:55 PM Results for this (NON-FASTING) EST procedure are in the results section. documented in this encounter Results Differential, Automated (08/11/2014 9:55 PM EST) P athologist Signature Neutrophils % 75.1 % CERNER MILLENNIUM Neutr Abs (ANC) 6.17 1.50 - CERNER 6.30 MILLENNIUM x10(3)/mcL Lymphocytes % 14.8 % CERNER MILLENNIUM Lymphocytes Abs 1.2 1.0 - 3.6 CERNER x10(3)/mcL MILLENNIUM Monocytes % 9.4 % CERNER MILLENNIUM Monocyte Abs 0.8 0.2 - 1.0 CERNER x10(3)/mcL MILLENNIUM Eosinophils % 0.1 % CERNER MILLENNIUM Eosinophils Abs 0.0 0.0 - 0.5 CERNER x10(3)/mcL MILLENNIUM Basophils % 0.1 % CERNER MILLENNIUM Basophils Abs 0.0 0.0 - 0.2 CERNER x10(3)/mcL MILLENNIUM Immature Gran % 0.50 % CERNER MILLENNIUM Comment: Immature granulocytes(IG's)percentage an d absolute count will include metamyelocytes, myelocytes, and promyelo cytes. Blood smears from CBCs yielding IG's will be scanned manually for concor dance. If this scan disagrees with the automated IG or if promyelocytes are not ed, a manual differential will be performed. Archana Gran Abs 0.04 0.00 - 0.05 x10(3)/mcL CER NER MILLENNIUM Specimen Anatomical Collection Method Collection Time Receive d Time (Source) Location / / Volume Laterality Blood specimen 08/11/2014 9:55 PM 014 (specimen) EST 10:00 PM EST Resulting Agency Comment Spec In Lab Sanju Machado MD HEMATOLOGY ORDERABLES Performing Organization Address City/[facility]/ZIP Code Phon e Number [address] CERNER MILLENNIUM (ABNORMAL) Hemogram (08/11/2014 9:55 PM EST) P athologist Signature WBC 8.2 4.0 - 10.0 CERNER x10(3)/mcL MILLENNIUM RBC 4.56 3.93 - 5.22 CERNER x10(6)/mcL MILLENNIUM Hemoglobin 13.9 11.2 - 15.7 CERNER gm/dL MILLENNIUM Hematocrit 40.8 34.0 - 45.0 CERNER % MILLENNIUM MCV 89.5 79.0 - 94.0 CERNER fL MILLENNIUM MCH 30.5 26.6 - 32.2 CERNER pg MILLENNIUM MCHC 34.1 32.0 - 36.5 CERNER gm/dL MILLENNIUM Platelets 255 145 - 370 CERNER x10(3)/mcL MILLENNIUM RDWSD 38.8 35.0 - 46.0 CERNER fL MILLENNIUM RDWCV 11.9 10.9 - 14.4 CERNER % MILLENNIUM MPV 8.8 (L) 9.0 - 12.0 CERNER fL MILLENNIUM Specimen Anatomical Collection Method Collection Time Receive d Time (Source) Location / / Volume Laterality Blood specimen 08/11/2014 9:55 PM 014 (specimen) EST 10:00 PM EST Resulting Agency Comment Spec In Lab Sanju Machado MD HEMATOLOGY ORDERABLES Performing Organization Address City/[facility]/ZIP Code Phon e Number [address] CERNER MILLENNIUM High Sensitivity CRP (08/11/2014 9:55 PM EST) athologist Signature CRP High Sens 2.9 mg/L CERNER MILLENNIUM Comment: Interpretations: 1) For accurate cardiac risk assessment, the average of 2 values >2 weeks apart should be obtained (ref 1&2). A value >1 0 mg/L indicates an inflammatory condition, concentrations >10 mg/L shoul d not be used for cardiac risk assessment. ?<1.0 mg/L: low risk ?1.0 - 3.0 mg/L: moderate risk ?>3.0 mg/L: high risk groups for fu ture cardiovascular events 2) The general reference range of appare ntly healthy individuals using this test is <5.0 mg/L (derived from the test package insert) References: 1. Clemente JIMENEZ et. al. ??AHA/CDC Scientif ic Statement: Markers of Inflammation and Cardiovascular Disease. ??Circulatio n 2003; 107:499-511 2. Ridker PM. ??Clinical applications of C-reactive protein for cardiovascular disease detection and prevention. ??Circ ulation 2003; 107:363-369 Specimen Anatomical Collection Method Collection Time Receive d Time (Source) Location / / Volume Laterality Blood specimen 08/11/2014 9:55 PM 014 (specimen) EST 10:00 PM EST Resulting Agency Comment Spec In Lab Sanju Machado MD CHEMISTRY ORDERABLES Performing Organization Address [facility] [place] Phon e Number [address] CERNER MILLENNIUM Sedimentation rate (08/11/2014 9:55 PM EST) P athologist Signature Sed Rate 12 0 - 20 CERNER mm/hr MILLENNIUM Specimen Anatomical Collection Method Collection Time Receive d Time (Source) Location / / Volume Laterality Blood specimen 08/11/2014 9:55 PM 014 (specimen) EST 10:00 PM EST Resulting Agency Comment Spec In Lab Sanju Machado MD HEMATOLOGY ORDERABLES Performing Organization Address [facility] [place] Phon e Number [address] CERNER MILLENNIUM Phosphorus (08/11/2014 9:55 PM EST) P athologist Signature Phosphorus 3.7 2.5 - 4.5 CERNER mg/dL MILLENNIUM Specimen Anatomical Collection Method Collection Time Receive d Time (Source) Location / / Volume Laterality Blood specimen 08/11/2014 9:55 PM 014 (specimen) EST 10:00 PM EST Resulting Agency Comment Spec In Lab Sanju Machado MD CHEMISTRY ORDERABLES Performing Organization Address City/State/[place] [address] CERNER MILLENNIUM Magnesium (08/11/2014 9:55 PM EST) athologist Signature Magnesium 0.97 0.69 - 1.07 CERNER mmol/L MILLENNIUM Specimen Anatomical Collection Method Collection Time Receive d Time (Source) Location / / Volume Laterality Blood specimen 08/11/2014 9:55 PM 014 (specimen) EST 10:00 PM EST Resulting Agency Comment Spec In Lab Sanju Machado MD CHEMISTRY ORDERABLES Performing Organization Address City/[facility]/ZIP Code Phon e Number [address] CERNER MILLENNIUM (ABNORMAL) Basic Metabolic Panel (non-fasting) (08/11/2014 9:55 PM EST) athologist Signature Glucose Lvl 125 60 - 199 CERNER mg/dL MILLENNIUM Comment: Diabetes: >=200 mg/dL plus symp toms BUN 19 (H) 8 - 18 mg/dL CERNER MILLENNIUM Creatinine 0.76 0.70 - 1.20 mg/dL CERNER MILL ENNIUM Comment: Please note that the pediatric reference intervals supplied above were not validated at [facility]. Results from pediatri c patients should be interpreted in conjunction to the patient's age, height and muscle mass. Sodium 136 135 - 145 mmol/L CERNER MIESHA NIUM Potassium 5.0 3.5 - 5.0 mmol/L CERNER MIESAH NIUM Comment: Please note: ??Patients with WBC >100,00 0 may have falsely elevated Potassium levels. ??For accurate Potassium quantif ication in these patients send serum separator tube (gold top) for subsequent determinations. ??Contact the Clinical Chemistry Laboratory if there are any qu estions. Chloride 95 (L) 98 - 107 mmol/L CERNER MILLENN IUM CO2 32 (H) 22 - 31 mmol/L CERNER MILLENNI UM Anion Gap 9 5 - 15 mmol/L CERNER MILLENNIU M Calcium 9.2 8.5 - 10.5 mg/dL CERNER MIESHA NIUM Estimated GFR >60 >=60 CERNER MILLENNIU M Comment: This estimated GFR (eGFR) value was [...] the following links into your internet browser. http://[email or web address] http://[email or web address] Specimen Anatomical Collection Method Collection Time Receive d Time (Source) Location / / Volume Laterality Blood specimen 08/11/2014 9:55 PM 014 (specimen) EST 10:00 PM EST Resulting Agency Comment Spec In Lab Sanju Machado MD CHEMISTRY ORDERABLES Performing Organization Address City/State/[place] [address] [facility] documented in this encounter Visit Diagnoses Diagnosis Lumbosacral spondylosis without myelopat hy documented in this encounter Administered Medications Inactive Administered Medications - up to 3 most recent administrations Medication Order MAR Action Action Date Dose Rate Site acetaminophen (TYLENOL) tablet 650 Given 08/14/2014 7:58 PM EST 650 mg mg 650 mg, Oral, EVERY 6 HOURS PRN, Starting on Thu08/11/14 at 2135, Until Thu08/14/14 at 2231, Pain, Fever, Administer for temperature greater than or equal to 38.2 degrees celsius. Maximum daily dose of acetaminophen from all sources not to exceed 4,000 mg., Routine Given 08/14/2014 12:59 PM EST 650 mg Given 08/14/2014 5:55 AM EST 650 mg bisacodyl (DULCOLAX) suppository 10 mg Given 08/13/2014 4:13 PM EST 10 mg 10 mg, Rectal, DAILY PRN, Starting on Thu08/11/14 at 2135, Until Thu08/14/14 at 2231, Constipation, Routine Given 08/12/2014 11:51 AM EST 10 mg dexamethasone (DECADRON) tablet 4 mg Given 08/14/2014 8:05 AM EST 4 mg 4 mg, Oral, DAILY, First dose on 08/13/14 at 1030, Until Discontinued, Routine Given 08/13/2014 1:41 PM EST 4 mg diaZEPam (VALIUM) tablet 5 mg Given 08/14/2014 2:19 PM EST 5 mg 5 mg, Oral, EVERY 8 HOURS, First dose on Thu08/11/14 at 2315, Until Discontinued, Routine Given 08/14/2014 5:56 AM EST 5 mg Given 08/13/2014 4:08 PM EST 5 mg esomeprazole (NexIUM) capsule 40 mg Given 08/14/2014 8:05 AM EST 40 mg 40 mg, Oral, DAILY, First dose on 08/12/14 at 0900, Until Discontinued, Routine Given 08/13/2014 8:06 AM EST 40 mg Given 08/12/2014 8:49 AM EST 40 mg gabapentin (NEURONTIN) capsule 300 mg Given 08/12/2014 12:50 AM EST 300 mg 300 mg, Oral, 3 TIMES DAILY, First dose on Thu08/11/14 at 2330, Until Discontinued, Routine gabapentin (NEURONTIN) capsule 600 mg Given 08/14/2014 8:05 AM EST 600 mg 600 mg, Oral, 3 TIMES DAILY, First dose (after last modification) on 08/12/14 at 0900, Until Discontinued, Routine Given 08/13/2014 8:21 PM EST 600 mg Given 08/13/2014 2:40 PM EST 600 mg gabapentin (NEURONTIN) capsule 900 mg Given 08/14/2014 8:00 PM EST 900 mg 900 mg, Oral, 3 TIMES DAILY, First dose (after last modification) on Thu08/14/14 at 1500, Until Discontinued, Routine Given 08/14/2014 2:19 PM EST 900 mg ketorolac (TORADOL) injection 30 mg Given 08/13/2014 12:05 PM EST 30 mg 30 mg, Intravenous, EVERY 6 HOURS SCHEDULED, 6 doses, First dose (after last modification) on 08/12/14 at 0845, Last dose on 08/13/14 at 1200, Routine Given 08/13/2014 6:25 AM EST 30 mg Given 08/12/2014 11:59 PM EST 30 mg morphine 1 mg/mL RECREATIONAL LEADER 30 mL New Syringe/Cartridge 08/12/2014 12:30 AM EST 30 mg Intravenous, RECREATIONAL LEADER ONLY, Starting on Thu08/11/14 at 2215, Until 08/12/14 at 0822 oxyCODONE (ROXICODONE) immediate release tablet Given 08/14/2014 7:58 PM EST 5 mg 5-10 mg 5-10 mg, Oral, EVERY 3 HOURS PRN, Starting on Thu08/11/14 at 2246, Until Thu08/14/14 at 2231, Pain, Routine Given 08/14/2014 4:17 PM EST 5 mg Given 08/14/2014 10:50 AM EST 5 mg sodium chloride 0.9 % flush 5 mL Given 08/14/2014 8:06 AM EST 5 mLs 5 mL, Intravenous, 2 TIMES DAILY, First dose on Thu08/11/14 at 2200, Until Discontinued, Routine Given 08/13/2014 8:21 PM EST 5 mLs Given 08/13/2014 8:11 AM EST 5 mLs documented in this encounter Active and Recently Administered Medications Times are shown in EST. Scheduled Medication Order 08/12/2014 08/13/2014 08/14/2014 dexamethasone (DECADRON) tablet 4 mg (CANCELED) 1341 (Given - Provider: Valerie Castro RN) 0805 (Given - Provider: Deepa Andrade RN) 4 mg, Oral, DAILY, First dose on Thu at 1030, Until Discontinued, Routine diaZEPam (VALIUM) tablet 5 mg (CANCELED) 0639 (Given - Provider: Shahnaz Guido RN)1458 (Given - Provider: Cata Morales RN)2358 (Given - Provider: Deepa Andrade RN) 0624 (Given - Provider: Deepa Andrade RN)1608 (Given - Provider: Valerie Castro RN)2315 (Not Given - Provider: Emilia Balderas RN - Reason: Patient/family refused) 0556 (Given - Provider: Emilia Balderas RN)0715 (Hold - Provider: Emilia Balderas RN - Reason: See comment - Comment: Pt requested med @ 0556 - had refused dose last night.)1419 (Given - Provider: Deepa Andrade RN) 5 mg, Oral, EVERY 8 HOURS, First dose on Thu08/11/14 at 2315, Until Discontinued, Routine esomeprazole (NexIUM) capsule 40 mg 0849 (Given - Prov ider: Cata Morales RN) 0806 (Given - Provider: Valerie Castro RN) 0805 (Give n - Provider: Deepa Andrade RN) 40 mg, Oral, DAILY, First dose on Sat at 0900, Until Discontinued, Routine gabapentin (NEURONTIN) capsule 300 mg (CANCELED) 0050 (Given - Provider: Shahnaz Guido RN - Comment: Pharmacy sent it late) 300 mg, Oral, 3 TIMES DAILY, First dose on Thu08/11/14 at 2330, Until Discontinued, Routine gabapentin (NEURONTIN) capsule 600 mg (CANCELED) 0848 (Given - Provider: Cata Morales RN)1458 (Given - Provider: Cata Morales RN)2025 (Given - Provider: Deepa Andrade RN) 0806 (Given - Provider: Valerie Castro RN)1440 (Given - Provider: Valerie Castro RN)2020 (Given - Provider: Emilia Balderas RN) 0805 (Given - Provider: Deepa Andrade RN) 600 mg, Oral, 3 TIMES DAILY, First dose on 08/12/14 at 0900, Until Discontinued, Routine gabapentin (NEURONTIN) capsule 900 mg 1419 (Given - Provider: Deepa Andrade RN)1999 (Given - Provider: Emilia Balderas RN) 900 mg, Oral, 3 TIMES DAILY, First dose on Thu08/14/14 at 1500, Until Discontinued, Routine ketorolac (TORADOL) injection 30 mg (COMPLETED) 1006 ( Given - Provider: Cata Morales RN)1151 (Given - Provider: Cata Morales RN)1821 (Given - Provider: Cata Morales RN)2359 (Given - Provider: Deepa Andrade RN) 0625 (Given - Provider: Deepa Andrade RN)1205 (Given - Provider: Valerie Castro RN) 30 mg, Intravenous, EVERY 6 HOURS SCHEDU LED, 6 doses, First dose on 08/12/14 at 0845, Last dose on 08/13/14 at 1200, Routine sodium chloride 0.9 % flush 5 mL (CANCELED) 0900 (Not Given - Provider: Cata Morales RN - Reason: Patient/family refused)2021 (Given - Provider: Deepa Andrade RN) 0811 (Given - Provider: Valerie Castro RN)2020 (Given - Provider: Emilia Balderas RN) 0806 (Given - Provider: Deepa Andrade, ZAFAR)2100 (Not Given - Provider: Emilia Balderas RN - Reason: See comment - Comment: IV out) 5 mL, Intravenous, 2 TIMES DAILY, First dose on Thu08/11/14 at 2200, Until Discontinued, Routine Continuous Medication Order 08/12/2014 08/13/2014 08/14/2014 morphine 1 mg/mL RECREATIONAL LEADER 30 mL (CANCELED) 0030 (New Syring e/Cartridge - Provider: Shahnaz Guido RN)0900 (Stopped - Provider: Cata Morales RN) Intravenous, RECREATIONAL LEADER ONLY, Starting 07/29 at 2215, Until 08/12/14 at 0822 PRN Medication Order 08/12/2014 08/13/2014 08/14/2014 acetaminophen (TYLENOL) tablet 650 mg (CANCELED) 1056 (Given - Provider: Regi Perry RN)1657 (Given - Provider: Cata Morales RN) 0445 (Given - Provider: Deepa Andrade RN)1059 (Given - Provider: Valerie Castro, ZAFAR)1724 (Given - Provider: Valerie Castro, ZAFAR) 0555 (Given - Provider: Emilia Balderas, ZAFAR)1259 (Given - Provider: Deepa Andrade, ZAFAR)1958 (Given - Provider: Emilia Balderas, ZAFAR) 650 mg, Oral, EVERY 6 HOURS PRN, Startin g Thu08/11/14 at 2135, Until Thu08/14/14 at 2231, Pain, Fever, Administer for temperature greater than or equal to 38.2 degrees celsius. Maximum daily dose of a cetaminophen from all sources not to exceed 4,000 mg., Routine bisacodyl (DULCOLAX) suppository 10 mg (CANCELED) 1151 (Given - Provider: Cata Morales RN) 1613 (Given - Provider: Valerie Castro, ZAFAR) 10 mg, Rectal, DAILY PRN, Starting Thu10/11/13 at 2135, Until Thu08/14/14 at 2231, Constipation, Routine oxyCODONE (ROXICODONE) immediate release tablet 5-10 m g 1057 (Given - Provider: Regi Perry, ZAFAR)1357 (Given - Provider: Cata Morales RN)1657 (Given - Provider: Cata Morales RN)2023 (Given - Provider: Deepa Andrade, ZAFAR) 0446 (Given - Provider: Deepa Andrade, ZAFAR)0902 (Given - Provider: Valerie Castro, ZAFAR)1440 (Given - Provider: Valerie Castro, ZAFAR)2155 (Given - Provider: Emilia Balderas, ZAFAR) 0733 (Given - Provider: Deepa Andrade, ZAFAR)1050 (Given - Provider: Deepa Andrade RN)1617 (Given - Provider: Deepa Andrade RN)1958 (Given - Provider: Emilia Baldersa, ZAFAR) 5-10 mg, Oral, EVERY 3 HOURS PRN, Starti ng Thu08/11/14 at 2246, Until Thu08/14/14 at 2231, Pain, Routine documented in this encounter Care Teams Field Reimbursement Manager Relationship Specialty Start Date End Date Katiuska Wheatley APRN PCP - General 08/20/10 05/20/15 [address] [place] [address] documented as of this encounter
--- OUTSIDE RECORDS SUMMARY | 2022-07-25 10:53 | XMS_ITS | Encounter Summary ---
:1960 Author Organization [facility] [place] [address] Care Team Providers Name Role Phone Marla Wheatley JE Primary Care Provider Encounter Details Date Type Department Care Team Description 06/06/2014 Follow-Up Physical Therapy at Amber Carlson PT [facility] [place] [id number] Lower back pain [facility] Daya Valentin MD [facility] [address] [facility] [place] [address] (Primary Dx) [place] [address] Social History Tobacco Use Types Packs/Day Years Used Date Former Smoker Sex Assigned at Date Recorded Not on file documented as of this encounter Progress Notes Haley Carlson PT - 06/06/2014 7:39 AM EDT Physical Therapy Progress Note Total treatment time: 25 minutes Total timed code treatment: 25 minutes Follow up visit for patient with 1. Lower back pain Current goals: Therapy Short Term Goals (2 weeks) 1. Patient to be indep with home exercise program. met 2. Pt able to do straight leg raise x 10 easily without increased pain. met 3. Pt able to sit for up to 15 min without increased pain. Progressing. Therapy Lithography Contact Worker Goals ( 4 weeks) 1. Patient to demo a decrease in self report disability by reducing Oswestry score to 8/50 in order to meet a clinically meaningful difference from initial evaluation score (MCID=6%). S: Patient reports back is feeling better. Had two really good days with no pain. O: Manual Therapy ([id number]) 20 min ?? 12/05 pian with sitting in the buttocks. Sitting really arm most of the time. Across and in to tehupper thigh. ?? Pt notes that lead will always cause pain. Sitting to driving will car cause pain. ?? Review of excise program. ?? Quadratus is really tight with some referral in to the area of discomfort. ?? Release of quadratus. ?? Instructed in stretch of quadratus. ?? Review importance of continuing exercise. ?? Discussed follow up after injection that is scheduled in 3 weeks ?? Stretch of hip. ?? A: Compression forces seem to exacerbate issue. Discussed with pt. Will ttry stretch of quadratus tohelp minimize pain. Sx of disc herniation. P: Continue physical therapy for lower back pain. documented in this encounter Plan of Treatment Upcoming Encounters Date Type Specialty Care Team Description 08/07/2022 [facility] Nahid Carl PsyD (TeleHealth) [facility] [address] [place], [place] [address] (Wo rk) documented as of this encounter Visit Diagnoses Diagnosis Lower back pain - Primary Lumbago documented in this encounter Care Teams Boom Stick Man Relationship Specialty Start Date End Date Marla Wheatley APRN PCP - General 08/20/10 05/20/15 1 [place] [address] documented as of this encounter
--- OUTSIDE RECORDS SUMMARY | 2022-07-25 10:53 | XMS_ITS | Encounter Summary ---
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 EPINEPHrine (EPIPEN) 0.3 Inject 0.3 mLs into 2 each 1 08/04/2016 mg/0.3 mL (1:1,000) the muscle once as Auto-Injector needed. gabapentin (NEURONTIN) Take 3 capsules by 90 capsule 12 08/1408/04/2016 300 mg Capsule mouth 3 times daily. cetirizine (ZYRTEC) 10 mg 0 12/18/2010 08/26/2016 tablet documented as of this encounter Plan of Treatment Upcoming Encounters Date Type Specialty Care Team Description 08/07/2022 TH Visit [facility] Nahid Carl PsyD (TeleHealth) [facility] [address] [place], [place] [address] (Wo rk) documented as of this encounter Procedures Procedure Name Priority Date/Time Associated Diagnosis Comme nts MAMMO 2D DIGITAL Routine 07/02/2015 3:15 PM Screening breast R esults for this SCREEN SHERMAN EDT examination procedure are i n BILATERAL the results section. documented in this encounter Results Mammo Screen Sherman 2D Bilateral (07/02/2015 3:15 PM EDT) Anatomical Region Laterality Modality Breast Bilateral Mammography Specimen (Source) Anatomical Location Collection Method / Collectio n Time Received Time / Laterality Volume Narrative 07/03/2015 9:51 AM EDT BILATERAL MAMMOGRAPHY REASON FOR EXAM: Screening TECHNIQUE: [...] stable. CONCLUSION: No mammographic evidence of malignancy. RECOMMENDATION Routine screening mammogr aphy is recommended with the frequency dependent on the patient? s age, breast cancer risk factors and preference. Additional studies may be re commended for women with higher than average risk for breast cancer. A result letter has been sent to this pa ale by [facility]. BIRADS CATEGORY 1: NEGATIVE Janett Valle MD IMG MAMMO ORDERABLES documented in this encounter Visit Diagnoses Diagnosis Screening breast examination (Not by Baldemar carver) Other screening breast examination documented in this encounter Care Teams Curriculum Development Coordinator Relationship Specialty Start Date End Date Susie López APRN PCP - General 05/21/15 06/30/19 documented as of this encounter
--- OUTSIDE RECORDS SUMMARY | 2022-07-25 10:53 | XMS_ITS | Encounter Summary ---
:1960 Author Organization [facility] [place] [address] Care Team Providers Name Role Phone Marla Wheatley JE Primary Care Provider Reason for Visit Reason Comments Travel Consult Encounter Details Date Type Department Care Team Description 03/11/2013 Office Visit Infectious Disease at Radha Robbins For eign travel (Primary Dx); [facility] [place] [address] Social History Tobacco Use Types Packs/Day Years Used Date Former Smoker Sex Assigned at Date Recorded Not on file documented as of this encounter Last Filed Vital Signs Vital Sign Reading Time Taken Comments Blood Pressure 118/71 03/11/2013 8:03 AM EDT Pulse 73 03/11/2013 8:03 AM EDT Temperature 36.8 ??C (98.3 ??F) 03/11/2013 8:03 AM EDT Respiratory Rate 16 03/11/2013 8:03 AM EDT Oxygen Saturation - - Inhaled Oxygen Concentration - - Weight - - Height - - Body Mass Index - - documented in this encounter Patient Instructions Patient InstructionsRadha Robbins RN - 03/11/2013 9:12 AM EDT Today, you received the following vaccines: [] Flu shot (recommended annually) [] TDaP (good for 10 years) [] Td (good for 10 years) [x] Hepatitis A* (first dose good for 6 months, need a booster anytime after 6 months) [] Hepatitis B* (series is a total of 3) [] IPV (polio - this is your adult lifetime booster) [] Meningococcal meningitis [] Pneumococcal [] Rabies* (series is a total of 3, Day 1, Day 7, and Day 21) [] Yellow fever (good for 10 yrs. Keep your yellow card w/ you when traveling as proof) [] Malaysian Encephalitis* (series of 2, Day 1 and Day 28) [x] Typhoid IM (good for 2-3 years) [] Typhoid oral (Take 1 capsule every other day on am empty stomach x 4 doses. Keep in fridge. Good for 5 years) *Please remember to schedule your follow-up boosters, if indicated. Call us at [phone] to schedule an appointment for these vaccines. Today, you were also prescribed a medication for malaria prevention. [] Malarone - Start taking 1 day prior to travel to malaria risk area. Take daily while there and for 7 more additional days thereafter. Take this medication with food. [x] Mefloquine or Chloroquine - Start 1 week prior to travel to a malaria risk area. Take once weekly while there and for 4 additional weeks thereafter. [] Doxycycline - Start 1 day prior to travel to malaria risk area. Take daily while there and for 28additional days thereafter. Additional Recommendations/Instructions: We recommend a tuberculin skin test (TST) to screen for tuberculosis exposure about 2 - 3 months after your trip. Call us at [phone] to book this upon your return. Have a great trip! documented in this encounter Progress Notes Guicho High MD - 03/18/2013 3:14 PM EDT I agree with the recommendations of Radha Robbins after review of her note. Radha oRbbins RN - 03/11/2013 8:14 AM EDT Adult Travel Clinic Reason for Visit: Fely Shaw is a 52 y.o. old patient who comes to travel clinic today for pre-travel evaluation, vaccination and traveler's health education. Trip Details: Destination countries (list from first to last):[place] Departure date: 03/20/13 Length of trip: one week Purpose of travel: training Type of environment (urban or rural):rural Accommodations: dormitory; mosquito nets; cafeteria Medical History: Medical problems: healthy Immunosuppression: No recent steroid use; chemotherapy or other immunosuppresion. History of adverse vaccine reactions: None. History of latex allergy: None. Not or . Medications: Current Outpatient Prescriptions Medication Sig Dispense Refill ??? cetirizine (ZYRTEC) 10 mg tablet ??? multivitamin (THERAGRAN) tablet ??? Calcium 500 mg Tab ??? ERGOCALCIFEROL, VITAMIN D2, (VITAMIN D ORAL) ??? VITAMIN E ACETATE (VITAMIN E ORAL) ??? Black Cohosh 40 mg Tab ??? ibuprofen (ADVIL;MOTRIN) 400 mg tablet Allergies: Honey bee venom; Wasp venom; White-faced hornet venom; Yellow hornet venom; Yellow jacketvenom; and Cis free text allergy Patient advised to carry all medications in carry on luggage. Patient advised to carry epipen. New script given Travel Health and Safety Issues: A discussion of travel health hazards and safety issues was done, including the following topics: (x) Traffic-accidents (alcohol, seatbelts) (x) Crime (x) Alcohol related issues (x) Sun exposure/heat illness (x) Schistosomiasis and other fresh water exposures (x) Rabies (x) HIV infections, Hepatitis (x) TB (x) Health insurance coverage/[employer] (x) Other: embassy information Discussed food and water precautions and patient handout provided. The following strategies were recommended for the management of traveler's diarrhea according to severity: For treatment of mild diarrhea: hydration and over the counter antidiarrheal recommended. For treatment of diarrhea accompanied by fever or systemic illness: hydration and empiric treatmentwith antibiotic recommended. A prescription for cipro, twice daily for three days, sent to [facility]. For severe or bloody diarrhea, or diarrhea accompanied by vomiting: patient advised to seek medicaltreatment. Vector-borne Disease Prevention Discussed insect bite prevention to reduce risk of malaria, dengue and other insect borne illnesses.Handout given. Malaria Risk: (x) Significant risk of malaria on this itinerary. Discussed malaria chemoprophylaxis and possible side effects. Prescription for:chloroquine was sent to [facility]. Altitude: (x) This trip does not involve high altitude. Follow-up Recommendations: A recommendation was made that the patient have a tst placed about 3 months after returning from this trip. The patient may either call the travel clinic or get this done through their primary school childcare attendant. Patient advised to call travel clinic if they return from trip with any illness. Time spent in travel counselin min Note written by RADHA ROBBINS RN Travel Clinic Immunization History and Orders Immunizations Last dose Give today Give at future date Tetanus/diphtheria (0.5 ml IM) Tdap 01/28/2006 MMR (0.5 ml IM) Pos. titres Polio (0.5 ml SC) Primary series Hepatitis A (Adult-1.0 ml IM) (Pedi-0.5 ml IM) 1. 03/11/2013 2. 1. 2. 6 mo to one year Immune serum globulin (specify route/dose) Hepatitis B (adult-1 ml IM X 3) (pedi-0.5 ml IM X 3) series 1. 2. 3. 1. 2. 3. Twinrix (Hep A/B) (1.0 ml IM) 1. 2. 3. 1. 2. 3. Typhoid (specify route/dose) 03/11/2013 IM Yellow fever (0.5 ml IM) Meningococcal (0.5 ml IM) Rabies (specify type/dose) 1.discussed actions to take if exposed; if covered by [facility] ISOS 2. 3. 1. 2. 3. Malaysian Encephalitis 1. 2. 3. 1. 2. 3. 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 documented in this encounter Plan of Treatment Upcoming Encounters Date Type Specialty Care Team Description 08/07/2022 TH Visit [facility] Nahid Carl PsyD (TeleHealth) [facility] [address] [place], [place] [address] (Wo rk) documented as of this encounter Visit Diagnoses Diagnosis Foreign travel - Primary Other specified conditions influencing h ealth status Healthcare maintenance Routine general medical examination at a health care facility documented in this encounter Care Teams Retread Supervisor Relationship Specialty Start Date End Date Marla Wheatley APRN PCP - General 08/20/10 05/20/15 1 [place] [address] documented as of this encounter
--- OUTSIDE RECORDS SUMMARY | 2022-07-25 10:53 | XMS_ITS | Encounter Summary ---
:1960 [place] [address] Care Team Providers Name Role Phone Marla Wheatley JE Primary Care Provider Encounter Details Date Type Department Care Team Description 05/27/2012 Follow-Up Physical Therapy at Arjun Salguero PT Lower back pain; [facility] PHYSICAL MEDICINE & [place] [address] Social History Tobacco Use Types Packs/Day Years Used Date Former Smoker Sex Assigned at Date Recorded Not on file documented as of this encounter Progress Notes Allan Salguero PT - 05/27/2012 8:44 AM EDT Physical Therapy Progress Note Total treatment time: 25 minutes Total timed code treatment: 25 minutes Current Medicare Cert Period n/a Follow up visit for patient with 1. Lower back pain (724.2U) 2. Lumbar strain (847.2L) Current goals: Therapy Short Term Goals (3 weeks) 1. Patient to be indep with home exercise program. 2. Decrease pain 5/10 or less with most activities 3. Centralize symptoms to the buttocks most of the time Therapy Traffic Controller Cable Goals ( 6 weeks) 1. Patient to decrease ENID to less than 15% 2. Decrease pain to 3/10 or less with most activities 3. Return to usual work and recreational activities without significant increase in symptoms. S: Patient reports she has more radicular pain depending on busy she is at work the previous day. Overall improved, but still limiting at times. O: Therapeutic Exercise (92621) 25 minutes ?? Therex ?? Pelvic tilt, 5 seconds x 10 ?? Pelvic tilt with marching, 20 reps ?? Pelvic tilt with knee extension 20 reps ?? Bridging, 5 reps, stopped due to lower back pain ?? tball knees to chest and lower trunk rotations, 20 reps ?? Did not tolerate a 4# UE ball ?? Quadriped hip extension, 10 reps ?? Quadriped alternating arm and leg lifts, 10 reps ?? Standing bilateral shoulder rows, flexion, extension, 15 reps ?? Total Gym, bilateral leg press, L8 20 reps A: Patient has functional ROM at this time (right side bending is limited and most painful). Symptoms are dependent on activity and radicular symptoms into the calf are noted with a busy day at work. Overall her symptoms are centralizing and continues to remain relatively active. P: Hold until Occupational Medicine follow up next week. Will continue with PT on an as needed basis. documented in this encounter Plan of Treatment Upcoming Encounters Date Type Specialty Care Team Description 08/07/2022 TH Visit [facility] Nahdi Carl PsyD (TeleHealth) [facility] [address] [place], [place] [address] (Wo rk) documented as of this encounter Visit Diagnoses Diagnosis Lower back pain Lumbago Lumbar strain Sprain of lumbar region documented in this encounter Care Teams Service Order Dispatcher Relationship Specialty Start Date End Date Marla Wheatley APRN PCP - General 08/20/10 05/20/15 1 [place] [address] documented as of this encounter
--- OUTSIDE RECORDS SUMMARY | 2022-07-25 10:53 | XMS_ITS | Encounter Summary ---
:1960 Author Organization [facility] [place] [address] Care Team Providers Name Role Phone Marla Wheatley JE Primary Care Provider Encounter Details Date Type Department Care Team Description 05/16/2014 Follow-Up Physical Therapy at Amber Carlson, PT [facility] [address] PHYSICAL MEDICINE & [place] [address] Lower back pain [facility] Sammy Cheung MD [address] [place] [id number] (Primary Dx) [place] [address] Social History Tobacco Use Types Packs/Day Years Used Date Former Smoker Sex Assigned at Date Recorded Not on file documented as of this encounter Progress Notes Haley Carlson, PT - 05/16/2014 3:16 PM EDT Physical Therapy Progress Note Total treatment time: 30 minutes Total timed code treatment: 30 minutes Follow up visit for patient with 1. Lower back pain Current goals: Therapy Short Term Goals (2 weeks) 1. Patient to be indep with home exercise program. 2. Pt able to do straight leg raise x 10 easily without increased pain. 3. Pt able to sit for up to 15 min without increased pain. Therapy Product Marketing Consultant Goals ( 4 weeks) 1. Patient to demo a decrease in self report disability by reducing Oswestry score to 8/50 in order to meet a clinically meaningful difference from initial evaluation score (MCID=6%). S: Patient reports numbness is getting worse. Had injection some better. Over all thinks it is better. O: Therex: Strength/Endurance/ROM (24264) 30 min ?? Pt mostly in the lower back instructed in stretch of piriformis area to help lessen tightness. ?? Pt has neg dural sign now had been positive. ?? Still has pain with daily activity. ?? Poor lower abs strength added leg lift with pelvic tilt to strengthen. ?? Also added bridge to home ex pogram ot build strength in the hip ext and support here. ?? See scan doc for exercises. A: Pt doing a little better. Pain is some what improve from injection. She feel sthat she will be getting additional. Will continue to strength as we can to minimize other stressors. P: Continue physical therapy for improve the stability of the back. documented in this encounter Plan of Treatment Upcoming Encounters Date Type Specialty Care Team Description 08/07/2022 TH Visit [facility] Nahid Carl PsyD (TeleHealth) [facility] [address] [place], [place] [address] (Wo rk) documented as of this encounter Visit Diagnoses Diagnosis Lower back pain - Primary Lumbago documented in this encounter Care Teams Nurses' Association Executive Director Relationship Specialty Start Date End Date Marla Wheatley APRN PCP - General 08/20/10 05/20/15 1 [place] [address] documented as of this encounter
--- OUTSIDE RECORDS SUMMARY | 2022-07-25 10:53 | XMS_ITS | Encounter Summary ---
:1960 Author Organization [place] [address] Care Team Providers Name Role Phone Marla Wheatley JE Primary Care Provider Encounter Details Date Type Department Care Team Description 08/06/2014 Hospital Encounter MRI at [facility], DR [facility] Sammy Cheung MD [address] [place] [address] [place] [address] Social History Tobacco Use Types Packs/Day Years Used Date Former Smoker Sex Assigned at Date Recorded Not on file documented as of this encounter Medications at Time of Discharge Medication Sig Dispensed Refills Start Date End Date Calcium 500 mg Take 1,000 mg by 0 TabletIndications: mouth daily. Intervertebral disc disorder with radiculopathy of lumbar region dexamethasone (DECADRON) 4 Take 4 mg by mouth. 0 08/11/2014 mg Tablet oxyCODONE (ROXICODONE) 5 Take 1-2 tablets by 15 tablet 0 06/12/2015 mg Tablet mouth every 4 hours as needed for Pain. diaZEPam (VALIUM) 5 mg Take 1 tablet by 5 tablet 0 014 06/12/2015 Tablet mouth every 6 hours as needed for Anxiety (spasm). meloxicam (MOBIC) 7.5 mg Take 7.5 mg by 0 08/11/2014 tablet mouth daily. acetaminophen (TYLENOL) Take 1,000 mg by 0 08/11/2014 500 mg tablet mouth every 6 hours as needed. epiNEPHrine (EPIPEN) 0.3 Inject 0.3 mLs into 1 each 1 08/11/2014 mg/0.3 mL (1:1,000) the muscle once as injectionIndications: needed. Healthcare maintenance cetirizine (ZYRTEC) 10 mg 0 12/18/2010 08/26/2016 tablet documented as of this encounter Plan of Treatment Upcoming Encounters Date Type Specialty Care Team Description 08/07/2022 TH Visit [facility] Nahid Carl, Mary (TeleHealth) [facility] [address] [place], [place] [address] (Wo rk) documented as of this encounter Procedures Procedure Name Priority Date/Time Associated Diagnosis Comme nts MRI LUMBAR SPINE Routine 08/06/2014 3:33 PM Resul ts for this WITH/WO CONTRAST EST procedure a re in the results section. documented in this encounter Results MRI lumbar spine with/WO contrast (08/06/2014 3:33 PM EST) Anatomical Region Laterality Modality L-spine Magnetic Resonance Specimen (Source) Anatomical Collection Method Collection Time Re ceived Time Location / / Volume Laterality 08/06/2014 3:33 PM EST Narrative 08/06/2014 4:12 PM EST Examination MR Lumbar Spine W/WO Hood Clinical History back pain Technique MRI of the lumbar spine was obtained bot h before and after the administration of 13 mL Magnevist. Comparison MRI of lumbar spine of 08/02/2014. Findings There is a transitional vertebra and, fo r purposes of this report, the numbering used is the same as that used on the prior study labeling the lowest complete intervertebral disc space at S1 -2. ?? There is been interval left-sided forame notomy at L5-S1. ??At the laminotomy bed there is material that is T2 hyperintens e, T1 hypointense, and nonenhancing. This material extends slightly into the more cephalad and caudad epidural space on the left. ??There is mild deformation of the thecal sac by this material. Nerve roots pass along its anterior aspe ct and they are slightly displaced anteriorly. ??There is a small amount of T1 and new T2 hypointense material in the epidural space likely representing m inor air. There is a small amount of disc material in the anterior epidural s pace on the left, unchanged from the prior study ?? No rim enhancing collection is present. There is no evidence of recurrent disc herniation. The degenerative disc disease and facet arthropathy at L4-L5 are unchanged. ??No new disc herniation is evident. Impression Interval laminotomy on the left at L5-S1 nonenhancing and T2 bright material the laminotomy bed likely represents flu id or blood products and is a common postoperative finding. ??This material e xerts mild mass effect upon the left aspect of the thecal sac and slightly di splaces the S1 and S2 nerve roots anteriorly. Comment: The following findings are so c ommon in people without low back pain that while we report their presence, the y must be interpreted with caution and in the context of the clinical situation . (Reference-Jarvik et al, Spine 2001) Findings: (prevalence in patients withou t low back pain), Disk degeneration (decreased T2 signal, height loss, bulge ) (91%), Disk T2-signal loss (83%), Disk height loss (56%), Disk bulge (64%) , Disk protrusion (32%), Annular fissure (38%). Procedure Note Brandon Prabhakar MD - 08/06/2014Format ting of this note might be different from the original. Examination MR Lumbar Spine W/WO Hood Clinical History back pain Technique MRI of the lumbar spine was obtained bot h before and after the administration of 13 mL Magnevist. Comparison MRI of lumbar spine of 08/02/2014. Findings There is a transitional vertebra and, fo r purposes of this report, the numbering used is the same as that used on the prior study labeling the lowest complete intervertebral disc space at S1 -2. There is been interval left-sided forame notomy at L5-S1. At the laminotomy bed there is material that is T2 hyperintens e, T1 hypointense, and nonenhancing. This material extends slightly into the more cephalad and caudad epidural space on the left. There is mild deformation o f the thecal sac by this material. Nerve roots pass along its anterior aspe ct and they are slightly displaced anteriorly. There is a small amount of T 1 and new T2 hypointense material in the epidural space likely representing m inor air. There is a small amount of disc material in the anterior epidural s pace on the left, unchanged from the prior study No rim enhancing collection is present. There is no evidence of recurrent disc herniation. The degenerative disc disease and facet arthropathy at L4-L5 are unchanged. No new disc herniation is evident. Impression Interval laminotomy on the left at L5-S1 nonenhancing and T2 bright material the laminotomy bed likely represents flu id or blood products and is a common postoperative finding. This material exe rts mild mass effect upon the left aspect of the thecal sac and slightly di splaces the S1 and S2 nerve roots anteriorly. Comment: The following findings are so c [...] , Disk protrusion (32%), Annular fissure (38%). Sammy Cheung MD IMG MRI ORDERABLES documented in this encounter Visit Diagnoses Not on filedocumented in this encounter Administered Medications Inactive Administered Medications - up to 3 most recent administrations Medication Order MAR Action Action Date Dose Rate Site gadopentetate dimeglumine Given 08/06/2014 3:18 PM EST 13 mLs (MAGNEVIST) injection 0.2 mL/kg 0.2 mL/kg/dose, Intravenous, ONCE PRN, 1 dose, Starting on 08/06/14 at 1514, Until 08/06/14 at 1518, Per Protocol, Routine documented in this encounter Care Teams Health Assessment And Treatment Teacher Relationship Specialty Start Date End Date Marla Wheatley APRN PCP - General 08/20/10 05/20/15 1 [place] [address] documented as of this encounter
--- OUTSIDE RECORDS SUMMARY | 2022-07-25 10:53 | XMS_ITS | Encounter Summary ---
:1960 Author Organization [facility] [place] [address] Care Team Providers Name Role Phone Marla Wheatley CLIENT SERVICE EXECUTIVE Primary Care Provider Reason for Visit Reason Comments Back Pain follow up Encounter Details Date Type Department Care Team Description 06/04/2012 Follow-Up Occupational Medicine at Ronnie Hdez , Lumbar strain (Primary [facility] CLIENT SERVICE EXECUTIVE Dx) [place] [phone] OCCUPATIONAL MEDICINE [place], [place] [address] Social History Tobacco Use Types Packs/Day Years Used Date Former Smoker Sex Assigned at Date Recorded Not on file documented as of this encounter Last Filed Vital Signs Vital Sign Reading Time Taken Comments Blood Pressure 133/70 06/04/2012 7:13 AM EDT Pulse 76 06/04/2012 7:13 AM EDT Temperature - - Respiratory Rate 16 06/04/2012 7:13 AM EDT Oxygen Saturation - - Inhaled Oxygen Concentration - - Weight - - Height - - Body Mass Index - - documented in this encounter Progress Notes Ronnie Hdez APRN - 06/04/2012 9:12 AM EDT Subjective: Patient ID: Fely Shaw is a 51 y.o. 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 Reports that she has been attending PT weekly and performing HEP w benefit. RLE sx are resolving well, but still notices increased LBP after working full shift. Also notes a few intermittent instances of the R leg seeming to give way unexpectedly while walking, with immediate recovery--No associated pain, numbness, etc, and no falls reported. Continues working as much as possible within her restrictions, avoiding aggravating activities on and off the job. No previous serious back injury, and no otherinjury from this incident. Feels that she can d/c formal PT, continuing w HEP daily, and that WRs can be advanced safely to regular duty, and we concur, given her presentation today. Objective: Physical Exam Upon presentation, EE appears well and in no acute distress. Sits comfortably in the exam room chair. Rises comfortably from seated position and ambulates with a nonantalgic gait. Upon examination of the lower back, there is again no swelling, deformation or discoloration of the overlying skin. EE demonstrates improved forward flexion (90 degrees) at the waist w tightness and discomfortvoiced at limit of movement. ROM in all planes at the waist is also improved over previous visit, and overhead reaching does not reproduce low back pain or tightness. Focused exam otherwise unremarkable. Assessment and Plan: A: Lumbar strain--R > L, w R SI sx --Essentially resolved P: D/C PT, but continue HEP to speed healing and maintain ROM and strength during healing Continue NSAIDs adding Tylenol per label PRN Advance to regular duty FU w OM in 3-4 weeks or before if needed --Anticipate MMI EE understands and agrees w plan of care WC PW completed documented in this encounter Plan of Treatment Upcoming Encounters Date Type Specialty Care Team Description 08/07/2022 TH Visit [facility] Nahid Carl PsyD (TeleHealth) [facility] [address] [place], [place] [address] (Wo rk) documented as of this encounter Visit Diagnoses Diagnosis Lumbar strain - Primary Sprain of lumbar region documented in this encounter Care Teams Tank Builder Relationship Specialty Start Date End Date Marla Wheatley APRN PCP - General 08/20/10 05/20/15 1 [place] [address] documented as of this encounter
--- OUTSIDE RECORDS SUMMARY | 2022-07-25 10:53 | XMS_ITS | Encounter Summary ---
:1960 Author Organization [facility] [place] [address] Care Team Providers Name Role Phone Marla Wheatley JE Primary Care Provider Encounter Details Date Type Department Care Team Description 11/19/2012 Orders Only Occupational Medicine at Sumaya Singh APRN [facility] Nahid vincent [place] [address] [place] [address] [phone] (Wo rk) Social History Tobacco Use Types Packs/Day Years Used Date Former Smoker Sex Assigned at Date Recorded Not on file documented as of this encounter Plan of Treatment Upcoming Encounters Date Type Specialty Care Team Description 08/07/2022 [facility] Nahid Carl PsyD (TeleHealth) [facility] [place], [place] [address] (Wo rk) documented as of this encounter Procedures Procedure Name Priority Date/Time Associated Diagnosis Comme nts RUBELLA ANTIBODY, Routine 11/19/2012 3:50 PM Resu lts for this IGG EST procedure are i n the results section. HEPATITIS B SURFACE Routine 11/19/2012 3:50 PM Re sults for this ANTIBODY EST procedure are i n the results section. documented in this encounter Results Hepatitis B Surface Antibody (11/19/2012 3:50 PM EST) Analysis Performed At Patho logist Time Signature HepB Surface Positive [facility] Comment: Expected Results: Vaccinated: Positive Unvaccinated: Negative Please note: A positive result for this assay is consistent with a concentration of anti-HBs antibodies >10 mIU/ml, which indicates that anti-HBs antibodies have been detected at levels consistent with protective immunity against HBV infection. Specimen Anatomical Collection Method Collection Time Receive d Time (Source) Location / / Volume Laterality Blood specimen 11/19/2012 3:50 PM 013 4:10 (specimen) EST PM EST Resulting Agency Comment Spec In Lab Sumaya Singh APRN IMMUNOLOGY ORDERABLES Performing Organization Address City/[facility]/ZIP [facility] [place] Number [address] [facility] Rubella Antibody, IgG (11/19/2012 3:50 PM EST) P athologist Signature Rubella IgG Positive Positive [facility] Comment: Please note: ??A positive result for thi s assay indicates that antibody levels are >or= 10.0 IU/mL and is considered to be an indicator of positive immune status. Specimen Anatomical Collection Method Collection Time Receive d Time (Source) Location / / Volume Laterality Blood specimen 11/19/2012 3:50 PM 013 4:10 (specimen) EST PM EST Resulting Agency Comment Spec In Lab Sumaya Snigh APRN IMMUNOLOGY ORDERABLES Performing Organization Address City/[facility] Phon e Number [address] [facility] documented in this encounter Visit Diagnoses Not on filedocumented in this encounter Care Teams Chain Saw Mechanic Relationship Specialty Start Date End Date Marla Wheatley APRN PCP - General 08/20/10 05/20/[address] [place] [address] documented as of this encounter
--- OUTSIDE RECORDS SUMMARY | 2022-07-25 10:53 | XMS_ITS | Encounter Summary ---
:1960 Author Organization [facility] [place] [address] Care Team Providers Name Role Phone Marla Wheatley Rodolfo WOOTEN Primary Care Provider Reason for Visit Reason Comments Physical Fitness Encounter Details Date Type Department Care Team Description 04/01/2013 Office Visit Internal Medicine at Neela Anna [facility] Leonard RN (Primary Dx) [place] [address] Social History Tobacco Use Types Packs/Day Years Used Date Former Smoker Sex Assigned at Date Recorded Not on file documented as of this encounter Last Filed Vital Signs Vital Sign Reading Time Taken Comments Blood Pressure - - Pulse - - Temperature - - Respiratory Rate - - Oxygen Saturation - - Inhaled Oxygen Concentration - - Weight 64.9 kg (143 lb) 04/01/2013 12:26 PM EDT Height 172.7 cm (5' 8) 04/01/2013 12:26 PM EDT Body Mass Index 21.74 04/01/2013 12:26 PM EDT documented in this encounter Progress Notes Neela Anna RN - 04/01/2013 12:23 PM EDT Fely completed the [employer] fitness challenge. Walk completed on level 5. Her current activity level in 2 miles of walking each day combines with strength training. She feels comfortable at her current weight of 143lbs and has lost the 15-20lbs that she had gained with menopause and increased stress. Results reviewed. Positive reinforcement for healthy lifestyle (she has also improved her lipid panel with nutrition and PA changes). Fely would like to continue to work on endurance and strength and return in 8 weeks for a retest. Area for improvement: flexibility. PHYSICAL FITNESS TESTING: AEROBIC FITNESS SCORE - One mile walk time: 14:20 Heart Rate (after walk): 90 (95%ile) MUSCULAR STRENGTH SCORE - Half sit-ups: 43 (80%ile) Push-ups: 33 (95%ile) FLEXIBILITY SCORE - Sit and Reach: 16 (55%ile) Overall Score (based on percentile average) - 81%ile Scores based on The [employer] Challenge Adult Fitness Test Guidelines documented in this encounter Plan of Treatment Upcoming Encounters Date Type Specialty Care Team Description 08/07/2022 TH [facility] Nahid Carl PsyD (TeleHealth) [facility] [address] [place], [place] [address] (Wo rk) documented as of this encounter Visit Diagnoses Diagnosis Counseling NOS(V65.40) - Primary Counseling NOS documented in this encounter Care Teams Tab Builder Relationship Specialty Start Date End Date Marla Wheatley APRN PCP - General 08/20/10 05/20/15 1 [place] [address] documented as of this encounter
--- OUTSIDE RECORDS SUMMARY | 2022-07-25 10:53 | XMS_ITS | Encounter Summary ---
:1960 Author Organization [facility] [place] [address] Care Team Providers Name Role Phone Marla Wheatley APRN Primary Care Provider Encounter Details Date Type Department Care Team Description 07/12/2014 Orders Only Occupational Medicine at Allan Mosher MD [facility] Nahid vincent [place] [address] [place] [address] [phone] (Wo rk) Social History Tobacco Use Types Packs/Day Years Used Date Former Smoker Sex Assigned at Date Recorded Not on file documented as of this encounter Plan of Treatment Upcoming Encounters Date Type Specialty Care Team Description 08/07/2022 TH Visit [facility] Nahid Carl PsyD (TeleHealth) [facility] er [place], [place] [address] (Wo rk) documented as of this encounter Visit Diagnoses Not on filedocumented in this encounter Care Teams Fire Fighting Equipment Specialist Relationship Specialty Start Date End Date Marla Wheatley APRN PCP - General 08/20/10 05/20/15 1 [place] [address] documented as of this encounter
--- OUTSIDE RECORDS SUMMARY | 2022-07-25 10:53 | XMS_ITS | Encounter Summary ---
:1960 Author Organization [facility] [place] [address] Care Team Providers Name Role Phone Susie López APRN Primary Care Provider Reason for Referral Diagnostic Test (Routine) - Closed Specialty Diagnoses / Procedures Referred By Contact Refer red To Contact Radiology Diagnoses Pain of left lower extremity Low back pain, unspecified back pain laterality, unspecified chronicity, with sciatica presence unspecified Sammy Cheung MD [facility] Rad Mri Procedures MRI Lumbar Spine wo Contrast (Generic) MRI Lumbar Spine wwo Contrast [address] [address] Referral ID Status Reason Start Date Expiration Date Visits V isits Requested Authorized [id number] Closed Specialty 07/30/2016 07/29/2017 1 1 Service Requested Reason for Visit Diagnostic Test (Routine) - Closed Specialty Diagnoses / Procedures Referred By Contact Refer red To Contact Radiology Diagnoses Pain of left lower extremity Low back pain, unspecified back pain laterality, unspecified chronicity, with sciatica presence unspecified Sammy Cheung MD [facility] Rad Mri Procedures MRI Lumbar Spine wo Contrast (Generic) MRI Lumbar Spine wwo Contrast [id number] [place] [address] Referral ID Status Reason Start Date Expiration Date Visits V isits Requested Authorized [id number] Closed Specialty 07/30/2016 07/29/2017 1 1 Service Requested Encounter Details Date Type Department Care Team Description 08/05/2016 Hospital Encounter MRI at [facility] Sammy Cheung, Pain of left lower extremity ; [facility] Low back pain, unspecified back pain lat erality, unspecified chronicity, with sciatica presence unspecified [address] [place] [address] [phone] Social History Tobacco Use Types Packs/Day Years [...] radiculopathy of lumbar region acetaminophen (TYLENOL) Take 1,000 mg by 0 [...] once as needed. cetirizine (ZYRTEC) 10 mg 0 12/18/2010 08/26/2016 tablet documented as of this encounter Plan of Treatment Upcoming Encounters Date Type Specialty Care Team Description 08/07/2022 TH [facility] Nahid Carl PsyD (TeleHealth) [facility] [address] [place] [address] (Wo rk) documented as of this encounter Procedures Procedure Name Priority Date/Time Associated Diagnosis Comme [facility] LUMBAR SPINE Routine 08/05/2016 8:23 PM Pain of left lower Results for this WITHOUT CONTRAST EST extremity procedure are in Low back pain, the results unspecified back section. pain laterality, unspecified chronicity, with sciatica presence unspecified documented in this encounter Results MRI Lumbar Spine wo Contrast (Generic) (08/05/2016 8:23 PM EST) Anatomical Region Laterality Modality L-spine Magnetic Resonance Specimen (Source) Anatomical Location Collection Method / Collectio n Time Received Time / Laterality Volume Impressions 08/05/2016 8:45 PM EST 1. ??Stable postsurgical changes as described above. 2. ??No new disc herniations to explain the patient's symptoms. Comment: The following findings are so c [...] c protrusion (32%), annular fissure (38%). Narrative 08/05/2016 8:45 PM EST EXAMINATION: MRI LUMBAR SPINE WITH AND WITHOUT CONTRAST (GENERIC) CLINICAL HISTORY: LBP, L leg pain, possi ble radiculopathy s/p L L4-5 hemilaminectomy , Recurrent LBP, leg katia n, sensory disturbance, prior lumbar surgery TECHNIQUE: MRI of the lumbar spine was p erformed with and without contrast, routine radiculopathy protocol. 7 cc Hood ovist ?? COMPARISON: Several previous lumbar spin e MRIs most recent which is dated 11/05/2015. FINDINGS: For the purposes of numbering, there is partial lumbarization of S1 on the left. With this numbering system, mo derate disc degenerative changes are again identified at L5-S1 with disc spac e narrowing and endplate irregularity. Left-sided laminotomy defect present at L5-S1. Mild lumbar levoscoliosis is unchanged a s is the grade 1 L4 and L5 anterolisthesis. Normal appearing conus terminates the L1 level. Visualized retroperitoneal structures appear normal . There is mild atrophy of the lower posterior paraspinal musculature. Marrow signal intensity is within normal limits. Findings at individual levels: T12-L1: ??Normal. L1-L2: ??No significant spinal canal or neural foraminal stenosis. L2-L3: ??There is a mild disc bulge but no significant canal or neural foraminal narrowing. L3-L4: ??No significant spinal canal or neural foraminal stenosis. L4-L5: ??There is a disc bulge, facet ar thropathy as well as a stable right foraminal disc extrusion which result in stable degrees of mild canal and neural foraminal narrowing. L5-S1: ??Findings are similar with enhan cing granulation tissue surrounding the traversing left S1 nerve root. No new di sc herniation at this level identified. Procedure Note Hema Parham MD - 08/05/2016Formatti ng of this note might be different from the original. EXAMINATION: MRI LUMBAR SPINE WITH AND W ITHOUT CONTRAST (GENERIC) CLINICAL HISTORY: LBP, L leg pain, possi ble radiculopathy s/p L L4-5 hemilaminectomy , Recurrent LBP, leg katia n, sensory disturbance, prior lumbar surgery TECHNIQUE: MRI of the lumbar spine was p erformed with and without contrast, routine radiculopathy protocol. 7 cc Hood ovist COMPARISON: Several previous lumbar spin e MRIs most recent which is dated 11/05/2015. FINDINGS: For the purposes of numbering, there is partial lumbarization of S1 on the left. With this numbering system, mo derate disc degenerative changes are again identified at L5-S1 with disc spac e narrowing and endplate irregularity. Left-sided laminotomy defect present at L5-S1. Mild lumbar levoscoliosis is unchanged a s is the grade 1 L4 and L5 anterolisthesis. Normal appearing conus terminates the L1 level. Visualized retroperitoneal structures appear normal . There is mild atrophy of the lower posterior paraspinal musculature. Marrow signal intensity is within normal limits. Findings at individual levels: T12-L1: Normal. L1-L2: No significant spinal canal or ne ural foraminal stenosis. L2-L3: There is a mild disc bulge but no significant canal or neural foraminal narrowing. L3-L4: No significant spinal canal or ne ural foraminal stenosis. L4-L5: There is a disc bulge, facet arth ropathy as well as a stable right foraminal disc extrusion which result in stable degrees of mild canal and neural foraminal narrowing. L5-S1: Findings are similar with enhanci ng granulation tissue surrounding the traversing left S1 nerve root. No new di sc herniation at this level identified. IMPRESSION 1. Stable postsurgical changes as descri bed above. 2. No new disc herniations to explain th e patient's symptoms. Comment: The following findings are so c [...] dis c protrusion (32%), annular fissure (38%). Sammy Cheung MD IMG MRI ORDERABLES documented in this encounter Visit Diagnoses Diagnosis Pain of left lower extremity Low back pain, unspecified back pain lat erality, unspecified chronicity, with sciatica presence unspecified documented in this encounter Administered Medications Inactive Administered Medications - up to 3 most recent administrations Medication Order MAR Action Action Date Dose Rate Site gadobutrol (GADAVIST) 1 mMol/mL Given 08/05/2016 7:00 PM EST 7 m Ls injection 7 mL 7 mL, Intravenous, ONCE PRN, 1 dose, Starting on Thu08/05/16 at 1939, Until Thu08/05/16 at 1900, lumbar, Routine documented in this encounter Care Teams Embroidery Patternmaker Relationship Specialty Start Date End Date Susie López APRN PCP - General 05/21/15 06/30/19 documented as of this encounter
--- OUTSIDE RECORDS SUMMARY | 2022-07-25 10:53 | XMS_ITS | Encounter Summary ---
:1960 Author Organization [facility] [place] [address] Care Team Providers Name Role Phone Marla Wheatley JE Primary Care Provider Encounter Details Date Type Department Care Team Description 04/27/2014 Follow-Up Physical Therapy at Haley Carlson wer back pain [facility] [place] (Primary Dx) [facility] [place] [address] PHYSICAL MEDICINE & [phone] [place] [address] Social History Tobacco Use Types Packs/Day Years Used Date Former Smoker Sex Assigned at Date Recorded Not on file documented as of this encounter Progress Notes Haley Carlson PT - 04/27/2014 8:48 AM EDT Physical Therapy Progress Note Total [...] to 15 min without increased pain. Therapy Sand Conditioner Goals ( 4 weeks) 1. Patient to demo a decrease in self report disability by reducing Oswestry score to 8/50 in order to meet a clinically meaningful difference from initial evaluation score (MCID=6%). S: Patient reports pain a little worse. Occasion pain down left leg. gettign cramping in shanna right thigh. 4/10 days that back just hurts. Leg lift is getting stronger. Leg is better with ex . O: Therex: Strength/Endurance/ROM (32692) 25 min ?? Review of exercise program. ?? Hip strength for flexion increased to 01/05 ?? Improved mobility of the leg. Still has + dural stretch. ?? Added dural mobility in sitting ankle pump. ?? Added pelvic rock to home ex program to try to open the lower back. ?? Continues to have discomfort increase with most any movement of the back. ?? Added trunk rotation in painfree range. To loosen back ms. A: Lower lumbar remains very sensitive to movement. Pt is scheduled for MANJIT in Apr. Will follow upwith her after that. Will continue to do exercise to maintain current range and function. P: Continue physical therapy for back pain. documented in this encounter Plan of Treatment Upcoming Encounters Date Type Specialty Care Team Description 08/07/2022 TH [facility] Nahid Carl PsyD (TeleHealth) [facility] [address] [place] [address] (Wo rk) documented as of this encounter Visit Diagnoses Diagnosis Lower back pain - Primary Lumbago documented in this encounter Care Teams Barkeeper Relationship Specialty Start Date End Date Marla Wheatley APRN PCP - General 08/20/10 05/20/15 1 [place] [address] documented as of this encounter
--- OUTSIDE RECORDS SUMMARY | 2022-07-25 10:53 | XMS_ITS | Encounter Summary ---
:1960 Author Organization [facility] [place] [address] Care Team Providers Name Role Phone Marla Wheatley JE Primary Care Provider Encounter Details Date Type Department Care Team Description 08/10/2014 Hospital Encounter MRI at [facility] RAIZA [facility] Sammy Cheung MD [address] [place] [address] [place] [address] Social History Tobacco Use Types Packs/Day [...] Spine Center Nahid Carl PsyD (TeleHealth) One [facility] [address] [place], [place] [address] (Wo rk) documented as of this encounter Procedures Procedure Name Priority Date/Time Associated Diagnosis Comme nts MRI PELVIS SOFT Routine 08/10/2014 1:15 PM Result s for this TISSUE (GI MEDIA SUPERVISOR) EST procedure are in WO CONTRAST the results section. documented in this encounter Results MRI pelvis WO contrast (08/10/2014 1:15 PM EST) Anatomical Region Laterality Modality Pelvis Magnetic Resonance Specimen (Source) Anatomical Collection Method Collection Time Re ceived Time Location / / Volume Laterality 08/10/2014 1:15 PM EST Narrative 08/10/2014 5:04 PM EST Examination MR Pelvis WO Clinical History limb pain Comparison MRI and lumbar spine 08/02/2014 and 05/2014. Technique T1 weighted and T2 weighted images were acquired. In addition a 3 dimensional version recovery acquisition was acquire d in the coronal plane and reconstructed into the axial images. Findings A left laminotomy defect is present at L 5-S1. ??Severe disc space narrowing and bony overgrowth is present at the disc s pace at this level. ?? On the left the L5 exiting nerve root is draped over a large osteophyte arising from L5-S1. ??I do not see focal alterat ion in nerve signal intensity or other evidence of this relatively abrupt conto ur change in the course of the nerve is clinically significant. Nerve signal intensity and size is yaneli l throughout the visualized field of view. ??No soft tissue masses are identi fied. ??Muscle signal intensity is normal with the exception of surgical alteratio n of the paraspinal muscles. As seen on earlier spine MR examination is there is a collection of fluid signal intensity distally consistent wit h small areas of dural ectasia. ??There is asymmetric partial sacralization of L 5 on the right. ??No bony injury is apparent. Impression ? 1. Postsurgical changes related t o earlier left laminotomy at L5-S1. ? 2. No nerve injury is identified. ? 3. At L5-S1 there is partial sacr alization on the right. ??On the left there is a very large osteophyte arising from the disc space. ??The exiting nerve root at this level is draped over this large outgrowth of bone. ??The significance of this distortion in the c ourse of the nerve is unclear. Procedure Note Royce Anna MD - 08/10/2014Forma tting of this note might be different from the original. Examination MR Pelvis WO Clinical History limb pain Comparison MRI and lumbar spine 08/02/2014 and 05/2014. Technique T1 weighted and T2 weighted images were acquired. In addition a 3 dimensional version recovery acquisition was acquire d in the coronal plane and reconstructed into the axial images. Findings A left laminotomy defect is present at L 5-S1. Severe disc space narrowing and bony overgrowth is present at the disc s pace at this level. On the left the L5 exiting nerve root is draped over a large osteophyte arising from L5-S1. I do not see focal alteratio n in nerve signal intensity or other evidence of this relatively abrupt conto ur change in the course of the nerve is clinically significant. Nerve signal intensity and size is yaneli l throughout the visualized field of view. No soft tissue masses are identifi ed. Muscle signal intensity is normal with the exception of surgical alteratio n of the paraspinal muscles. As seen on earlier spine MR examination is there is a collection of fluid signal intensity distally consistent wit h small areas of dural ectasia. There is asymmetric partial sacralization of L 5 on the right. No bony injury is apparent. Impression 1. Postsurgical changes related to ellyn ier left laminotomy at L5-S1. 2. No nerve injury is identified. 3. At L5-S1 there is partial sacralizat ion on the right. On the left there is a very large osteophyte arising from the disc space. The exiting nerve root at this level is draped over this large outgrowth of bone. The significance of this distortion in the c ourse of the nerve is unclear. Sammy Cheung MD IMG MRI ORDERABLES documented in this encounter Visit Diagnoses Not on filedocumented in this encounter Care Teams Textile Colorist Dyer Relationship Specialty Start Date End Date Marla Wheatley, TRUCK HOPPER PCP - General 08/20/10 05/20/15 1 [place] [address] documented as of this encounter
--- OUTSIDE RECORDS SUMMARY | 2022-07-25 10:53 | XMS_ITS | Encounter Summary ---
:1960 Author Organization [facility] Address [address] [place] [address] Care Team Providers Name Role Phone Michael López APRN Primary Care Provider Reason for Visit Reason Comments Annual Exam Encounter Details Date Type Department Care Team Description 08/04/2016 Office Visit [facility] Michael López, Pain in left hip; Primary Care at [facility] TR[facility] CLERK Annual physical exam; [facility] on[facility] midline low back pain with left- sided sciatica Drive [address] [place], [place] END[facility] [address] [place] [id number] [phone] Social History Tobacco Use Types Packs/Day Years Used Date Former Smoker Cigarettes Quit: 08/12/20 09 Smokeless Tobacco: Never Used Alcohol Use Standard Drinks/Week Comments Yes 0 (1 standard drink = 0.6 oz pure alcoho l) Sex Assigned at Date Recorded Not on file documented as of this encounter Last Filed Vital Signs Vital Sign Reading Time Taken Comments Blood Pressure 110/72 08/04/2016 9:20 AM EST Pulse 78 08/04/2016 9:20 AM EST Temperature 36.8 ??C (98.3 ??F) 08/04/2016 9:20 AM EST Respiratory Rate - - Oxygen Saturation - - Inhaled Oxygen Concentration - - Weight 71.2 kg (157 lb) 08/04/2016 9:20 AM EST Height 167.9 cm (5' 6.1) 08/04/2016 9:20 AM EST Body Mass Index 25.26 08/04/2016 9:20 AM EST documented in this encounter Patient Instructions Patient InstructionsMichael López APRN - 08/04/2016 9:00 AM EST No labs this year mammo as planned Let me know if you need anything michael documented in this encounter Progress Notes Rosa Maria Murillo, ZAFAR - 08/04/2016 9:00 AM EST Fely in for annual exam. She'd like to discuss her on-going back pain (has Neuro surgeon at [facility] whom she sees when needed). She is taking gabapentin 300mg at night only. Meloxicam 7.5-15mg/day and tyenol. She reports lower back pain with sciatic pain L>R, R typically with driving. She has recentlynoticed a severe nerve pain (10/10) in her L anterior thigh. Can be replicated when she rolls on Kelly side at night. She has a call in to her neurosurgeon about this. Michael López APRN - 08/04/2016 9:00 AM EST Chief Complaint Patient presents with ??? Annual Exam . Ht Readings from Last 3 Encounters: 08/04/16 167.9 cm (5' 6.1) 06/12/15 167.2 cm (5' 5.83) 08/11/14 172.7 cm (5' 8) . Wt Readings from Last 3 Encounters: 08/04/16 71.2 kg (157 lb) 06/12/15 71.5 kg (157 lb 9.6 oz) 08/12/14 73.2 kg (161 lb 6 oz) Body mass index is 25.26 kg/(m^2). Subjective Fely Shaw is a 56 y.o. female in today for annual physical. Concerns for today: ?? Ongoing back issues. At times thinks there is stability of the back, then has relapse of pain. Seeing her neurosurgery after MRI this week. Taking neurontin usually mostly at night up to 600 mg QHS and TID ?? Noticed tremendous (07/07) pain when lying in bed if on R side and L hip up in air with a band like, diagonal paresthesia afterh pain setsin from outer leg into her inner thigh ?? Enjoying paragliding and she and plan a trip in [facility] in September Patient Active Problem List Diagnosis Code ??? 12/11/10 ARTHROSCOPY KNEE,MENISCECTOMY SINGLE WITH SHAVING OSC /LEFT/LATERAL M25.562 ??? Left knee pain M25.562 ??? Finger sprain S63.619A ??? Lumbar strain S39.012A ??? Lower back pain M54.5 ??? Lumbosacral spondylosis without myelopathy M47.817 Family History Problem Relation Age of Onset ??? Type 2 Diabetes Neg Hx ??? Hypertension Mother ??? Hyperlipidemia Mother ??? Breast Cancer Sister 36 ??? Lung Cancer Father 2011 ??? Osteoporosis Mother Social History Social History ??? Marital status: Spouse name: N/A ??? Number of children: N/A ??? Years of education: N/A Social History Main Topics ??? Smoking status: Former Smoker Types: Cigarettes Quit date: 08/12/2009 ??? Smokeless tobacco: Never Used ??? Alcohol use Yes ??? Drug use: None ??? Sexual activity: Not Asked Other Topics Concern ??? None Social History Narrative Left L4-L5 hemilaminotomy, medial facetectomy, foraminotomy with L5-S1 Current Outpatient Prescriptions Medication Sig Dispense Refill ??? acetaminophen (TYLENOL) 500 mg Tablet Take 1,000 mg by mouth every 6 hours as needed for Pain. ??? meloxicam (MOBIC) 7.5 mg Tablet Take 1 tablet by mouth daily. (Patient taking differently: Take 7.5 mg by mouth 2 times daily as needed.) 90 tablet 3 ??? gabapentin (NEURONTIN) 300 mg Capsule Take 3 capsules by mouth 3 times daily. (Patient taking differently: Take 300 mg by mouth nightly.) 90 capsule 12 ??? Calcium 500 mg Tablet Take 1,000 mg by mouth daily. ??? cetirizine (ZYRTEC) 10 mg tablet ??? VITAMIN E ACETATE (VITAMIN E ORAL) ??? Black Cohosh 40 mg Tab ??? EPINEPHrine (EPIPEN) 0.3 mg/0.3 mL (1:1,000) Auto-Injector Inject 0.3 mLs into the muscle once as needed. (Patient not taking: Reported on 08/04/2016) 2 each 1 No current facility-administered medications for this visit. Allergies Allergen Reactions ??? Allergen Fos-Onvyr-Kltdz Bee Anaphylaxis ??? Venom-Wasp Anaphylaxis ??? Sdtus-Bvaph-Olyes Hornet Anaphylaxis ??? Venom-Yellow Hornet Anaphylaxis ??? Venom-Yellow Jacket Anaphylaxis ??? Cis Free Text Allergy food dyes - Hives( gel type medication- bright red and yellow) ??? Nexium [Esomeprazole Magnesium] Other (See Comments) Light headed myD-H Primary Care 08/03/2016 PROMIS 10-Health in general Very Good PROMIS 10-Quality of life Very Good PROMIS 10-Physical health Very Good PROMIS 10-Mental health Excellent PROMIS 10-Satisfaction with social activities Excellent PROMIS 10-Ability to carry out social activities Excellent PROMIS 10-Ability to carry out physical activities Mostly PROMIS 10-Bothered by emotional problems Never PROMIS 10-Rate of fatigue Mild PROMIS 10-Rate of pain 7 PROMIS 10- Physical Health Score 44.9 PROMIS 10- Mental Health Score 62.5 REVIEW OF SYSTEMS 08/03/2016 Constitutional Hot flashes, Pain Ear / nose / throat / mouth None of the above Eyes Dry eyes Respiratory None of the above Cardiovascular None of the above Gastrointestinal None of the above Skin, hair Dry skin Musculoskeletal Back pain Neurological Numbness, tingling, Muscular [...] ca<50 or ovarian ca) PHQ-9 QUESTIONNAIRE (AMB) 08/04/2016 Little interest or pleasure (Clinic) Not at all Little interest or pleasure (Patient) - Down, depressed, hopeless (Clinic) Not at all Down, depressed, hopeless (Patient) - Objective There were no vitals filed for this visit. General appearance - alert, well appearing, and in no distress, oriented to person, place, and time and normal appearing weight Mental Status - alert, oriented to person, place, and time, normal mood, behavior, speech, dress, motor activity, and thought processes Eyes - pupils equal and reactive, extraocular eye movements intact, sclera anicteric Ears - bilateral TM's and external ear [...] sharp, DTR's normal and symmetric Musculoskeletal - abnormal exam of left Hip with abduction and adduction of both hips L > R -fairly full ROM Extremities - no pedal edema noted Skin - normal coloration and turgor, no rashes, no suspicious skin lesions noted Assessment 1.) L hip pain as well as spine pain-I think that she has some features of perhaps impingement in the L hip; lets check L hip xray-consider ortho referral. She will continue in the [facility] spine neurosurgical management pathway 2.) HCM lipids last year showed HDL > 80; the Tchol of 240 seems less worrisome given that MICHAEL LÓPEZ APRN documented in this encounter Plan of Treatment Upcoming Encounters Date Type Specialty Care Team Description 08/07/2022 [facility] PsyD (TeleHealth) [facility] [address] [place], [place] [address] (Wo rk) documented as of this encounter Visit Diagnoses Diagnosis Pain in left hip Pain in joint, pelvic region and thigh Annual physical exam Routine general medical examination at a health care facility 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
--- OUTSIDE RECORDS SUMMARY | 2022-07-25 10:53 | XMS_ITS | Encounter Summary ---
:1960 Author Organization [place] [address] Care Team Providers Name Role Phone Marla Wheatley JE Primary Care Provider Encounter Details Date Type Department Care Team Description 07/27/2014 Follow-Up Physical Therapy at Haley Carlson wer back pain [facility], PT (Primary Dx) [facility] [place] [address] PHYSICAL MEDICINE & [phone] [place] [address] Social History Tobacco Use Types Packs/Day Years Used Date Former Smoker Sex Assigned at Date Recorded Not on file documented as of this encounter Progress Notes Haley Carlson PT - 07/27/2014 7:34 AM EDT Physical Therapy Progress Note Total treatment time: 15 minutes Total timed code treatment: 0 minutes Follow up visit for patient with 1. Lower back pain Current goals: Therapy Short Term Goals (2 weeks) 1. Patient to be indep with home exercise program. met 2. Pt able to do straight leg raise x 10 easily without increased pain. met 3. Pt able to sit for up to 15 min without increased pain. Progressing. Therapy [facility] Goals ( 4 weeks) 1. Patient to demo a decrease in self report disability by reducing Oswestry score to 8/50 in order to meet a clinically meaningful difference from initial evaluation score (MCID=6%). S: Patient reports pain continues to worsen. Using more meds. Has appointment with surgeon next week. She is bringing tens unit back today as it has not helped. O: ?? Discussed the importance of continued stretching and strengthening to keep her conditioned as much as she can within pain tolerances. ?? Returned tens unit to empi. ?? Discussed that at this point PT has nothing further to offer. A: Increasing pain. Pt to met with neurosurgeon next week. Likely will have surgery. Will discharge from PT at this time as no longer progressing. Goals have not been met. P: Continue physical therapy for d/c PT documented in this encounter Plan of Treatment Upcoming Encounters Date Type Specialty Care Team Description 08/07/2022 TH Visit [facility] Nahid Carl PsyD (TeleHealth) [facility] [address] [place], [place] [address] (Wo rk) documented as of this encounter Visit Diagnoses Diagnosis Lower back pain - Primary Lumbago documented in this encounter Care Teams Relationship Assoc Relationship Specialty Start Date End Date Marla Wheatley APRN PCP - General 08/20/10 05/20/15 1 [place] [address] documented as of this encounter
--- OUTSIDE RECORDS SUMMARY | 2022-07-25 10:53 | XMS_ITS | Encounter Summary ---
:1960 Author Organization [facility] [place] [address] Care Team Providers Name Role Phone Susie López APRN Primary Care Provider Encounter Details Date Type Department Care Team Description 08/05/2014 Interpretation Only Radiology at [facility] Ce nter None [address] [place] [address] [place] [phone] Social History Tobacco Use Types Packs/Day Years Used Date Former Smoker Sex Assigned at Date Recorded Not on file documented as of this encounter Plan of Treatment Upcoming Encounters Date Type Specialty Care Team Description 08/07/2022 TH Visit [facility] Nahid Carl PsyD (TeleHealth) [facility] [address] [place] [address] (Wo rk) documented as of this encounter Procedures Procedure Name Priority Date/Time Associated Diagnosis Comme nts XR FLUORO NO RAD Routine 08/05/2014 7:36 AM Resul ts for this <1HR - RADIOLOGY EST procedure a re in USE the results section. documented in this encounter Results XR Fluoro <1Hr - Radiology Use (08/05/2014 7:36 AM EST) Anatomical Region Laterality Modality N/A Radiographic Imaging Specimen (Source) Anatomical Collection Method Collection Time Re ceived Time Location / / Volume Laterality 08/05/2014 7:36 AM EST Narrative 08/05/2014 7:36 AM EST [facility] Historical Result Principal Freight Air Brake Fitter: ??WENDI ?KISHA C-ARM FLUOROSCOPY: A total of 7.9 seconds of fluoroscopic t cristhian corresponding to a dose of 520 mrad was used by Dr Cheung during L4-5 laminectomy, facetecto my, and foraminotomy. Four digital spot films are obtained. ?? Initial digital spot film documents markers at the spinous process of the L4 and L5 levels. ??Next image documents retraction devices and marker overlapping the L5 level. Subsequently, surgical markers are documented, positioned near the pedicles of L4 and L5. IMPRESSION: C-arm fluoroscopy and spot f ilms aiding in localization for L4-5 lumbar procedure, as noted. Wendi Lin MD Blake [id number] CC: Procedure Note Unknown - 03/28/2019Formatting of this n ote might be different from the original. [facility] Historical Result Principal Freight Air Brake Fitter: WENDI LIN C-ARM FLUOROSCOPY: A total of 7.9 seconds of fluoroscopic t cristhian corresponding to a dose of 520 mrad was used by Dr Cheung during L4-5 laminectomy, facetecto my, and foraminotomy. Four digital spot films are obtained. In itial digital spot film documents markers at the spinous process of the L4 and L5 levels. Next image documents retraction devices and marker overlapping the L5 level. Subsequently, surgical markers are documented, positioned near the pedicles of L4 and L5. IMPRESSION: C-arm fluoroscopy and spot f ilms aiding in localization for L4-5 lumbar procedure, as noted. Wendi Lin MD Blake [id number] CC: Unknown IMG FLUORO ORDERABLES documented in this encounter Visit Diagnoses Not on filedocumented in this encounter Care Teams Installment Dealer Relationship Specialty Start Date End Date Susie López APRN PCP - General 05/21/15 06/30/19 (work) documented as of this encounter
--- OUTSIDE RECORDS SUMMARY | 2022-07-25 10:53 | XMS_ITS | Encounter Summary ---
:1960 Author Organization [facility] [place] [address] Care Team Providers Name Role Phone Marla Wheatley JE Primary Care Provider Reason for Visit Reason Comments Back Pain Encounter Details Date Type Department Care Team Description 05/14/2012 Follow-Up Occupational Medicine at Ronnie Hdez , Lumbar strain (Primary Dx); [facility] JUNK REMOVAL SPECIALIST SI (sacroiliac) [place] [phone] OCCUPATIONAL MEDICINE [place], [place] [address] Social History Tobacco Use Types Packs/Day Years Used Date Former Smoker Sex Assigned at Date Recorded Not on file documented as of this encounter Last Filed Vital Signs Vital Sign Reading Time Taken Comments Blood Pressure 115/61 05/14/2012 7:11 AM EDT Pulse 68 05/14/2012 7:11 AM EDT Temperature - - Respiratory Rate 16 05/14/2012 7:11 AM EDT Oxygen Saturation - - Inhaled Oxygen Concentration - - Weight - - Height - - Body Mass Index - - documented in this encounter Progress Notes Ronnie Hdez APRN - 05/14/2012 7:10 AM EDT Subjective: Patient ID: Fely Shaw is a 51 y.o. 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 Reports that she has been attending PT weekly and performing HEP w benefit. RLE sx are resolving well, but has noticed an elevation in low back pain after working full shift. Has been working as much as possible within her restrictions, avoiding aggravating activities on and off the job. No previous serious back injury, and no other injury from this incident. Feels that WRs can be advanced safely, and we concur, given her presentation today. HPI Review of Systems Objective: Physical Exam Upon presentation, EE appears well and in no acute distress. Sits more comfortably in the exam room chair. Rises less awkwardly from seated position and ambulates with a nonantalgic gait.Upon examination of the lower back, there is again no swelling, deformation or discoloration of the overlying skin. EE demonstrates improved forward flexion (45 degrees) at the waist still limited 2/2 R lumbar pain and stiffness. ROM in all planes at the waist is also improved over previous visit, andoverhead reaching does not reproduce low back pain or tightness. Focused exam otherwise unremarkable. Assessment and Plan: A: Lumbar strain--R > L, w R SI sx --Improving P: Reassured EE regarding anticipated trajectory of recovery over next several weeks, emphasizing need to stay within recommended restrictions Continue PT/HEP to speed healing and maintain ROM and strength during healing Continue NSAIDs adding Tylenol per label Heat/ice as discussed w gentle stretches as tolerated We will advance protective work restrictions to: 20 lb max/15 lb frequent lift/carry/push/pull No bend/kneel/squat No ladder climbing No boosting patients FU w OM in two weeks or before if needed EE understands and agrees w plan of care WC PW completed documented in this encounter Plan of Treatment Upcoming Encounters Date Type Specialty Care Team Description 08/07/2022 TH Visit [facility] Nahid Carl PsyD (TeleHealth) [facility] [address], [place] [address] (Wo rk) documented as of this encounter Visit Diagnoses Diagnosis Lumbar strain - Primary Sprain of lumbar region SI (sacroiliac) pain Disorders of sacrum documented in this encounter Care Teams Director Product Safety Relationship Specialty Start Date End Date Marla Wheatley APRN PCP - General 08/20/10 05/20/15 1 [place] [address] documented as of this encounter
--- OUTSIDE RECORDS SUMMARY | 2022-07-25 10:53 | XMS_ITS | Encounter Summary ---
:1960 Author Organization [facility] [place] [address] Care Team Providers Name Role Phone Marla Wheatley JE Primary Care Provider Encounter Details Date Type Department Care Team Description 08/02/2014 Hospital Encounter MRI at [facility], DR RAIZA [facility] Sammy Cheung MD [address] [place] [address] [place] [address] Social History Tobacco Use Types Packs/Day Years Used Date Former Smoker Sex Assigned at Date Recorded Not on file documented as of this encounter Medications at Time of Discharge Medication Sig Dispensed Refills Start Date End Date Calcium 500 mg Take 1,000 mg by 0 TabletIndications: mouth daily. Intervertebral disc disorder with radiculopathy of lumbar region meloxicam (MOBIC) 7.5 mg Take 7.5 mg by 0 08/11/2014 tablet mouth daily. acetaminophen (TYLENOL) 500 Take 1,000 mg by 0 08/11/2014 mg tablet mouth every 6 hours as needed. epiNEPHrine (EPIPEN) 0.3 Inject 0.3 mLs 1 each 1 013 08/11/2014 mg/0.3 mL (1:1,000) into the muscle injectionIndications: once as needed. Healthcare maintenance cetirizine (ZYRTEC) 10 mg 0 12/18/2010 08/26/2016 tablet documented as of this encounter Plan of Treatment Upcoming Encounters Date Type Specialty Care Team Description 08/07/2022 TH Visit [facility] Nahid Carl PsyD (TeleHealth) [facility] [place], [place] [address] (Wo rk) documented as of this encounter Procedures Procedure Name Priority Date/Time Associated Diagnosis Comme nts MRI LUMBAR SPINE Routine 08/02/2014 4:53 PM Resul ts for this WITHOUT CONTRAST EST procedure a re in the results section. documented in this encounter Results MRI lumbar spine without contrast (08/02/2014 4:53 PM EST) Anatomical Region Laterality Modality L-spine Magnetic Resonance Specimen (Source) Anatomical Collection Method Collection Time Re ceived Time Location / / Volume Laterality 08/02/2014 4:53 PM EST Narrative 08/02/2014 5:20 PM EST Examination MR Lumbar Spine WO Clinical History acute left lumbar radiculopathy ?? known lumbar spondylosis Technique Lumbar spine MRI noncontrast. Comparison Exam dated 02/16/2014. Technique. Findings The examination demonstrates a transitio nal situation with 5 lumbar type segments and a partially lumbarized sacr al segment with a complete intervertebral disc space and fusion on the right . ??There is partial lumbarization of the S1 segment on the l eft. ??There is a convex left scoliosis of the lumbar spine with compensatory ri ghtward curve at the LS junction. ?? There is marked asymmetric disc degenera tive changes on the concave, left side of the curve at the L5-S1 level with mar ked osteophyte formation endplate reactive change and disc space narrowing greater on the left. ??There is mild disc desiccation changes in the lumbar s pine greater on the right at L2-L3, the concave portion of the lumbar curve. ??V ertebral bodies are normal in height. ?? No aggressive marrow lesions. ??No pars defects. ??The conus demonstrates normal size shape and signal intensity and term inates appropriately at L1. Findings at specific levels: ??T12-L1, L 1-L2, L2-L3, L3-L4: ??No disc protrusion central stenosis or foraminal narrowing. L4-L5: ??There is a broad central and ri ght paracentral disc protrusion extending to the right foraminal and far lateral which appears similar to prior examination. ??There is mild effacement of the ventral thecal sac. ??There is asymmetric facet arthropathy on the righ t. ??There is mild right foraminal narrowing and mild overall canal narrowi ng. L5-S1: ??There is a broad disc extrusion extending caudally which is similar in appearance to prior examination. ??There is very mild effacement of the ventral thecal sac and appears to contact but no t displace the crossing S1 nerve roots. ?? There is moderate to severe left and mil d to moderate right foraminal narrowing due to asymmetric endplate proliferative changes disc space narrowing and facet arthropathy. Impression ? 1. Evidence of transitional situa tion with 5 lumbar type segments and a partially lumbarized sacral segment with fusion on the right and lumbarized appearance on the left. ??There is a com plete intervertebral disc space at S1, 2. ??Should surgical intervention be con templated correlation with plain films and this numbering is recommended. ? 2. Moderate to severe left forami nal narrowing at L5-S1 secondary to asymmetric disc degenerative changes on the concave side of scoliosis. ? 3. Scoliosis lumbar spine and LS junction. ? 4. L4-L5 broad central right para central and right foraminal disc protrusion with asymmetric facet arthrop athy on the right. Comment: The following findings are so c [...] protrusion (32%), Annular fissure (38%). Procedure Note Christ Levy MD - 08/02/2014Formatt ing of this note might be different from the original. Examination MR Lumbar Spine WO Clinical History acute left lumbar radiculopathy known lumbar spondylosis Technique Lumbar spine MRI noncontrast. Comparison Exam dated 02/16/2014. Technique. Findings The examination demonstrates a transitio nal situation with 5 lumbar type segments and a partially lumbarized sacr al segment with a complete intervertebral disc space and fusion on the right . There is partial lumbarization of the S1 segment on the l eft. There is a convex left scoliosis of the lumbar spine with compensatory ri ghtward curve at the LS junction. There is marked asymmetric disc degenera tive changes on the concave, left side of the curve at the L5-S1 level with mar ked osteophyte formation endplate reactive change and disc space narrowing greater on the left. There is mild disc desiccation changes in the lumbar s pine greater on the right at L2-L3, the concave portion of the lumbar curve. Torrey tebral bodies are normal in height. No aggressive marrow lesions. No pars de fects. The conus demonstrates normal size shape and signal intensity and term inates appropriately at L1. Findings at specific levels: T12-L1, L1- L2, L2-L3, L3-L4: No disc protrusion central stenosis or foraminal narrowing. L4-L5: There is a broad central and righ t paracentral disc protrusion extending to the right foraminal and far lateral which appears similar to prior examination. There is mild effacement of the ventral thecal sac. There is asymmetric facet arthropathy on the righ t. There is mild right foraminal narrowing and mild overall canal narrowi ng. L5-S1: There is a broad disc extrusion e xtending caudally which is similar in appearance to prior examination. There i s very mild effacement of the ventral thecal sac and appears to contact but no t displace the crossing S1 nerve roots. There is moderate to severe left and mil d to moderate right foraminal narrowing due to asymmetric endplate proliferative changes disc space narrowing and facet arthropathy. Impression 1. Evidence of transitional situation w ith 5 lumbar type segments and a partially lumbarized sacral segment with fusion on the right and lumbarized appearance on the left. There is a compl ete intervertebral disc space at S1, 2. Should surgical intervention be fam mplated correlation with plain films and this numbering is recommended. 2. Moderate to severe left foraminal na rrowing at L5-S1 secondary to asymmetric disc degenerative changes on the concave side of scoliosis. 3. Scoliosis lumbar spine and LS juncti on. 4. L4-L5 broad central right paracentra l and right foraminal disc protrusion with asymmetric facet arthrop athy on the right. Comment: The following findings are so c [...] on filedocumented in this encounter Care Teams Biomedical Repair Technician Relationship Specialty Start Date End Date Marla Wheatley APRN PCP - General 08/20/10 05/20/[address] [place] [id number] documented as of this encounter
--- OUTSIDE RECORDS SUMMARY | 2022-07-25 10:53 | XMS_ITS | Encounter Summary ---
:1960 Author Organization [facility] [place] [address] Care Team Providers Name Role Phone Marla Wheatley JE Primary Care Provider Reason for Visit Reason Comments Buttock Pain left Encounter Details Date Type Department Care Team Description 06/23/2014 Procedure visit Pain Management at Jeff Karimi ervertebral disc [facility] MD Kuldeep disorder with [facility] radiculop athy lumbar [address] [facility] [place] (Primary Dx) [place], [place] [facility] [id number] [place], [place] [phone] [address] Social History Tobacco Use Types Packs/Day Years Used Date Former Smoker Sex Assigned at Date Recorded Not on file documented as of this encounter Last Filed Vital Signs Vital Sign Reading Time Taken Comments Blood Pressure 111/66 06/23/2014 8:18 AM EDT Pulse 70 06/23/2014 8:18 AM EDT Temperature - - Respiratory Rate 18 06/23/2014 8:18 AM EDT Oxygen Saturation 99% 06/23/2014 8:18 AM EDT Inhaled Oxygen Concentration - - Weight 64.4 kg (142 lb) 06/23/2014 7:47 AM EDT Height 167.6 cm (5' 6) 06/23/2014 7:47 AM EDT Body Mass Index 22.92 06/23/2014 7:47 AM EDT documented in this encounter Patient Instructions Patient Rita Felix LPN - 06/23/2014 8:00 AM EDT Pain Management Center Discharge Instructions: You were seen by Dr. Jeff Karimi MD and Penny Duran MD who performed lumbar epidural steroidinjection. It is normal that the injection site will be sore for up to 48 hours. You may also experience mild stiffness in the joint near the injection site. [x] You may resume your normal activities: tomorrow. [...] your bladder 4-6 hours after your procedure. You received the following medications: Depo-Medrol 40 mg, Lidocaine and Omnipaque (contrast dye). During regular business hours, please phone the Pain Management Center at for appointments or with any questions or if the following [...] or proceed to your local emergency department. Rita Hammond LPN Special instructions documented in this encounter Progress Notes Rita Hammond LPN - 06/23/2014 7:50 AM EDT Pre-Procedure Screening Questions: 1. Status: No 2. Patient states they have a refuse driver to transport after procedure? Yes 3. Patient taking antibiotics at present? No 4. NPO per Pain Management Center protocol? No 5. Patient diabetic: No 6. Patient routinely taking anticoagulants ? No Anticoagulant: Date Stopped: Current INR: Patient Vital Signs documented in Doc Flowsheets associated with this encounter. Patient Discharge Instructions were reviewed with patient and copy provided to patient. documented in this encounter Procedure Notes Penny Duran MD - 06/23/2014 8:29 AM EDTAssociated Order(s): EPIDURAL STEROID INJECTION Procedure(s): EPIDURAL STEROID INJECTION Pre-Procedure Diagnose(s): Lumbosacral spondylosis without myelopathy EPIDURAL STEROID INJECTION Date of Service: 06/23/2014 Patient: Fely Shaw Diagnosis: 1. Lumbosacral spondylosis without myelopathy Preoperative Notes Patient has had 1 steroid injections in the last 12 months. She c/o left LE pain in the L3-4 distribution Today's Operative Note Fely Shaw was greeted by the nurse who verified patients name and . Patient was then taken tothe fluoroscopy suite. I first sat down with the patient and discussed the risks, benefits, side effects, and alternativesof this procedure including increased pain from the procedure, no pain relief, nerve damage, spinal headache. Female comprehended my conversation and accepts the risks and understands the goals of thisprocedure. All questions and concerns from the patient were addressed. There are no contraindications for today's procedure. The printed consent form was signed and witnessed. Standard time-out procedure was performed. Fely Shaw was placed in the supine position with on the fluoroscopy table and automated blood pressure cuff and pulse oximeter applied. The skin entry point for entering/approaching the epidural space by an interlaminar left L4-L5 and marked. Following thorough chlorhexadine preparation of the skin and draping and 1% lidocaine infiltration of the skin entry point and subcutaneous tissues, a 18 gauge Touhy needle was placed under fluoroscopic guidance and with loss of resistance technique into the epidural space. Needle tip placement and depth were aided and confirmed by fluoroscopy. There was no paresthesia or return of blood or CSF through the needle. 1 cc's of Omnipaque 240 was injected withclear epidural spread confirmed with fluoroscopy. 40 mg depomedrol With 2 cc of PFNS was injected. There was not any unusual discomfort expressed by Fely Shaw. Fely Shaw's vital signs were stable throughout the procedure and were as recorded in nursing records. Discharge plan: Patient will follow up if pain is not improved in 3 weeks for a repeat LESI. PENNY DURAN MD Fellow, Pain Management I was the attending physician supervising the resident in the above care and I was present with the resident for the entire procedure. Jeff Karimi MD documented in this encounter Plan of Treatment Upcoming Encounters Date Type Specialty Care Team Description 08/07/2022 TH Visit [facility] Nahid Carl PsyD (TeleHealth) [facility] [place], [place] [address] (Wo rk) Pending Results Name Type Priority Associated Diagnoses Date/Ti me XR Fluoro OR c-arm Imaging Routine 4 10:34 AM EDT storage only Scheduled Orders Name Type Priority Associated Diagnoses Order S chedule XR Fluoro OR c-arm Imaging Routine Once PRN (for Radiant storage only use) for 1 Occu rrences starting 2013 until 06/23/2014 documented as of this encounter Procedures Procedure Name Priority Date/Time Associated Diagnosis Comme nts EPIDURAL STEROID Routine 06/23/2014 9:30 AM Intervertebral dis c Results for this INJECTION EDT disorder with procedure are in radiculopathy of lumbar the results region section. documented in this encounter Results EPIDURAL STEROID INJECTION (06/23/2014 9:30 AM EDT) Narrative Jeff Karimi MD - 06/23/2014 9:30 AM EDT Jeff Karimi MD ? 06/23/2014 ??9:30 AM EPIDURAL STEROID INJECTION Date of Service: 06/23/2014 Patient: ??Fely Shaw ?? Diagnosis: 1. Lumbosacral spondylosis without myelo fransisco ?? Preoperative Notes Patient has had 1 steroid injections in the last 12 months. She c/o left LE pain in the L3-4 distrib ution Today's Operative Note Fely Shaw was greeted by the nurse arcelia osorio verified patients name and . ??Patient was then taken to the fluoroscopy suite. I first sat down with the patient and d iscussed the risks, benefits, side effects, and alternatives of this procedure including increased pain from the proced ure, no pain relief, nerve damage, spinal headache. ??Female comprehended my conversation and accepts the risks and u nderstands the goals of this procedure. All questions and concer ns from the patient were addressed. There are no contraindication s for today's procedure. The printed consent form was signed and witnessed. ??Standard time-out procedure was performed. Fely Shaw was placed in the supine p osition with on the fluoroscopy table and automated blood pr essure cuff and pulse oximeter applied. ??The skin entry point for entering/approaching the epidural space by an interlaminar le ft L4-L5 and marked. ?? Following thorough chlorhexadine prepara tion of the skin and draping and 1% lidocaine infiltration of the skin entry point and subcutaneous tissues, a 18 gauge Touhy n eedle was placed under fluoroscopic guidance and with loss of r esistance technique into the epidural space. ??Needle tip placeme nt and depth were aided and confirmed by fluoroscopy. There was no paresthesia or return of blood or CSF through the needle. 1 cc 's of Omnipaque 240 was injected with clear epidural spread conf irmed with fluoroscopy. 40 mg depomedrol ??With 2 cc of PFNS was injected. There was not any unusual discomfort expressed by Luis Shaw. Fely Shaw's vital signs were stable throughout the procedure and were as recorded in nursing records. ?? Discharge plan: Patient will follow up i f pain is not improved in 3 weeks for a repeat LESI. PENNY DURAN MD Fellow, Pain Management I was the attending physician supervisin g the resident in the above care and I was present with the re sident for the entire procedure. eJff Karimi MD Procedure Note Penny Duran MD - 06/23/2014 8:29 AM EDT EPIDURAL STEROID INJECTION Date of Service: 06/23/2014 Patient: Fely Shaw Diagnosis: 1. Lumbosacral spondylosis without myelo fransisco Preoperative Notes Patient has had 1 steroid injections in the last 12 months. She c/o left LE pain in the L3-4 distrib ution Today's Operative Note Fely Shaw was greeted by the nurse arcelia ho verified patients name and . Patient was then taken to the fluoroscopy suite. I first sat down with the patient and d iscussed the risks, benefits, side effects, and alternatives of this procedure including increased pain from the procedure, no pain relief, nerve damage, spinal headache. Female comprehended my conversation and accepts the risks and understands the goals of this procedure. All questions and concerns from the patient were addressed. There are no contraindications for today's procedure. The printed consent form was signed and witn essed. Standard time-out procedure was performed. Fely Shaw was placed in the supine p osition with on the fluoroscopy table and automated blood pressure cuff and pulse oximeter applied. The skin entry point for entering/approaching the epidural space by an interlaminar left L4-L5 and marked. Foll owing thorough chlorhexadine preparation of the skin and draping and 1% lidocaine infiltration of the skin entry point and subcutaneous tissues, a 18 gauge Touhy needle was placed under fluoroscopic guidance and w rad loss of resistance technique into the epidural space. Needle tip placement and depth were aided and confirmed by fluoroscopy. There was no paresthesia or return of blood or CSF through the needle. 1 cc's of Omnipa que 240 was injected with clear epidural spread confirmed with fluoroscopy. 40 mg depomedrol With 2 cc of PFNS was injected. There was not any unusual discomfort expressed by Fely Shaw. Fely Shaw's vital signs were stable throughout the procedure and were as recorded in nursing records. Discharge plan: Patient will follow up i f pain is not improved in 3 weeks for a repeat LESI. PENNY DURAN MD Fellow, Pain Management I was the attending physician supervisin g the resident in the above care and I was present with the resident for the entire procedure. Jeff Karimi MD Jeff Karimi MD NEUROLOGY ORDERABLES documented in this encounter Visit Diagnoses Diagnosis Intervertebral disc disorder with radicu lopathy of lumbar region - Primary Thoracic or lumbosacral neuritis or radi culitis, unspecified documented in this encounter Administered Medications Inactive Administered Medications - up to 3 most recent administrations Medication Order MAR Action Action Date Dose Rate Site iohexol (OMNIPAQUE) injection 1 mL Given 06/23/2014 8:45 AM EDT 1 mL 1 mL, Other, ONCE, 1 dose, On Thu06/23/14 at 0845, 49 ml wasted, Routine methylPREDNISolone acetate (depo-MEDROL) Given 06/23/2014 8:45 A M EDT 40 mg injection 40 mg 40 mg, Epidural, ONCE, 1 dose, On Thu06/23/14 at 0845, Routine documented in this encounter Care Teams Clamshell Engineer Relationship Specialty Start Date End Date Marla Wheatley APRN PCP - General 08/20/10 05/20/15 [address] [place] [address] documented as of this encounter
--- OUTSIDE RECORDS SUMMARY | 2022-07-25 10:53 | XMS_ITS | Encounter Summary ---
:1960 Author Organization [facility] [place] [address] Care Team Providers Name Role Phone Marla Wheatley JE Primary Care Provider Encounter Details Date Type Department Care Team Description 08/10/2014 Telephone Neurology at [facility] Jeff Lindsey [place] [address] NEUROLOGY DEPT. [phone] [place], [place] [address] (Wo rk) Social History Tobacco Use Types Packs/Day Years Used Date Former Smoker Sex Assigned at Date Recorded Not on file documented as of this encounter Miscellaneous Notes Telephone Encounter - Jeff Lindsey MD - 08/10/2014 6:42 PM EST Called by Dr. Sammy Gillette of Neurosurgery at [facility] who had seen this patient last week forright leg pain and numbness with imaging consistent with severe L5-S1 level degeneration with neuroforaminal compromise. She was taken to the operating room and decompressed, but unfortunately her symptoms have persisted and in fact have progressed to other levels. A repeat scan at [facility] shows radiologic improvement of the neuro foraminal compromise, but the patient remains in significant pain, despite some steroids and pain medications. Over the course of the week, after tapering off of the Decadron, the patient had progression of the symptoms and a repeat pelvis MRI looks fine from a canal standpoint. The patient is in significant pain over the anterior thigh. She has numbness down the lateral aspect of her foot. Of note is that she is not diabetic and although her blood sugars are elevated, presumably secondary to steroids. Based on what I can gather from the telephone conversation, I think it would be reasonable to have the patient be seen by the urgent clinic attending, Dr. Mao Garcia, further evaluation, question polyneuropathy versus lumbosacral plexopathy. I will inform the secretarial staff and Dr. Garcia. documented in this encounter Plan of Treatment Upcoming Encounters Date Type Specialty Care Team Description 08/07/2022 TH Visit [facility] Nahid Carl PsyD (TeleHealth) [facility] [address] [place], [place] [address] (Wo rk) documented as of this encounter Visit Diagnoses Not on filedocumented in this encounter Care Teams Maintenance Craftsman Relationship Specialty Start Date End Date Marla Wheatley, JE PCP - General 08/20/10 05/20/15 [address] [place] [address] documented as of this encounter
--- OUTSIDE RECORDS SUMMARY | 2022-07-25 10:53 | XMS_ITS | Encounter Summary ---
:1960 Author Organization [facility] Address [address] [place] [address] Care Team Providers Name Role Phone Marla Wheatley JE Primary Care Provider Encounter Details Date Type Department Care Team Description 04/20/2013 Hospital Encounter Mammography at [facility], DR RAIZA [facility] Wesly Riley II, MD [address] [place] [address] [place] [address] Social History Tobacco Use Types Packs/Day [...] tablet Calcium 500 mg Tab 0 12/18/20102013 ERGOCALCIFEROL, VITAMIN 0 12/18/2010 0 01/13/2014 D2, (VITAMIN D ORAL) ibuprofen (ADVIL;MOTRIN) 0 12/18/2010 06/23/2014 400 mg tablet documented as of this encounter Plan of Treatment Upcoming Encounters Date Type Specialty Care Team Description 08/07/2022 [facility] Nahid Carl PsyD (TeleHealth) [facility] [address] [place], [place] [address] (Wo rk) documented as of this encounter Procedures Procedure Name Priority Date/Time Associated Diagnosis Comme nts MAMMO SCREENING CAD Routine 04/20/2013 8:01 AM Re sults for this BILATERAL EDT procedure are i n the results section. documented in this encounter Results Mammo digital bilateral Screening with CAD (04/20/2013 8:01 AM EDT) Anatomical Region Laterality Modality Breast Bilateral Mammography Specimen (Source) Anatomical Collection Method Collection Time Re ceived Time Location / / Volume Laterality 04/20/2013 8:01 AM EDT Narrative 04/21/2013 8:53 AM EDT Reason for Exam: Screening Technique: Craniocaudal (CC) and Medio-l ateral Oblique (MLO) views of both breasts obtained with direct digital cap ture. In addition to the routine 2D imaging th is exam was also performed with 3D tomographic imaging in MLO and CC projec tions. The exam was evaluated by CAD version 8. 3.17. Findings: This is a negative mammogram (ACR Catego ry 1). ??There is a stable fibroglandular pattern without significa nt change from prior studies. There is no mammographic evidence of can cer. ??The breasts are extremely dense which greatly limits mammographic sensit ivity for the detection of malignancy. CONCLUSION: This is a NEGATIVE mammogram (ACR Catego ry 1). ?? Routine screening mammography is recomme nded with the frequency dependent upon the patient's age and breast cancer risk factors. A letter has been sent to this patient b y the breast imaging center. Procedure Note Rogelio Dodson MD - 04/21/2013Format ting of this note might be different from the original. Reason for Exam: Screening Technique: Craniocaudal (CC) and Medio-l ateral Oblique (MLO) views of both breasts obtained with direct digital cap ture. In addition to the routine 2D imaging th is exam was also performed with 3D tomographic imaging in MLO and CC projec tions. The exam was evaluated by CAD version 8. 3.17. Findings: This is a negative mammogram (ACR Catego ry 1). There is a stable fibroglandular pattern without significa nt change from prior studies. There is no mammographic evidence of can cer. The breasts are extremely dense which greatly limits mammographic sensit ivity for the detection of malignancy. CONCLUSION: This is a NEGATIVE mammogram (ACR Catego ry 1). Routine screening mammography is recomme nded with the frequency dependent upon the patient's age and breast cancer risk factors. A letter has been sent to this patient b y the breast imaging center. Marla Wheatley APRN IMG MAMMO ORDERABLES documented in this encounter Visit Diagnoses Not on filedocumented in this encounter Care Teams Stain Applicator Relationship Specialty Start Date End Date Marla Wheatley APRN PCP - General 08/20/10 05/20/15 1 [place] [address] documented as of this encounter
--- OUTSIDE RECORDS SUMMARY | 2022-07-25 10:53 | XMS_ITS | Encounter Summary ---
:1960 Author Organization [facility] Address [address] [place] [address] Care Team Providers Name Role Phone Marla Wheatley [employer] Primary Care Provider Encounter Details Date Type Department Care Team Description 06/14/2014 Hospital Encounter XRay at [facility], DR EASTMAN [address] [place] [address] Marla Mckinnon, [employer] [address] [place] [address] [place] [address] Social History Tobacco Use Types Packs/Day Years Used Date Former Smoker Sex Assigned at Date Recorded Not on file documented as of this encounter Medications at Time of Discharge Medication Sig Dispensed Refills Start Date End Date meloxicam (MOBIC) 7.5 mg Take 7.5 mg by mouth 0 08/11/2014 tablet daily. acetaminophen (TYLENOL) Take 1,000 mg by 0 08/11/2014 500 mg tablet mouth every 6 hours as needed. chloroquine (ARALEN) 500 Take 1 tablet by [...] Center Nahid Carl PsyD (TeleHealth) [facility] [address] [place], [place] [address] (Wo rk) documented as of this encounter Procedures Procedure Name Priority Date/Time Associated Diagnosis Comme nts DXA CENTRAL SPINE, Routine 06/14/2014 2:10 PM Res ults for this HIP, AND/OR WHOLE EDT procedure are in BODY (GENERIC) the results section. documented in this encounter Results Dexa central-spine, hip, and/or whole body (06/14/2014 2:10 PM EDT) Anatomical Region Laterality Modality C-spine, Hip N/A Radiographic Imaging Specimen (Source) Anatomical Collection Method Collection Time Re ceived Time Location / / Volume Laterality 06/14/2014 2:10 PM EDT Narrative 06/16/2014 1:45 PM EDT Examination DXA CENTRAL-SPINE,HIP, AND/OR WHOLE BODY Clinical History BASELINE POSTMENOPAUSAL Technique Scans were acquired at the lumbar spine, left hip, . Findings Lowest T-score at a diagnostic region of interest: T-score: -2.1,ADAMARIS: Femoral neck, WHO lars gnosis: low bone mass or osteopenia Impression The measurements fulfill the WHO classif ication for low bone mass or osteopenia. The fracture risks are incre ased. _ Estimating Fracture Risk: The relationship between bone mineral de nsity (BMD) and risk of fracture is well established. As BMD decreases, risk increases. Quantifying risk is difficult and is usually limited to dean mation of the relative risk - a term which may have limited value when trying to discuss an individual's risk. Estimating the absolute risk for a patie nt requires an understanding of the incidence rate in a given population and consideration of multiple, partially independent, risk factors in addition to BMD. The World Health Organization (WHO) has developed a fracture risk prediction tool that calculates a ten-year risk of major osteoporotic fracture based on femoral neck bone density measurements a nd nine clinical risk factors for individuals who have not been treated fo r osteoporosis. This is available through an interactive web-based [employer] (http://www.shef.ac.uk/FRAX/) and can be used to estimate a given patient' s absolute risk of major osteoporotic fracture or hip fracture over the next 1 0 years. These estimates may prove useful when discussing risk with a patie nt. It is important, however, to understand the tool's limitations and ho w a given individual's risk might differ from the tool's estimate. The too l does not take into account the dose-response associated with most risk factors. For example, the significant increase in risk associated with multipl e prior fractures compared to a single prior fracture is not taken into account . Similarly, the location of a previous fracture, the amount of glucocorticoids and number of cigarettes smoked are not considered. These limitations are discus sed in a Frequently Asked Questions section of the FRAX website which you ar e encouraged to review. DEXA data sheets with BMD measurements a nd plots are available in [employer] under the imaging tab. Paper copies will be sent to providers without [employer] access. If you have received this report without the data sheet and do not have access to [employer], please contact Radiology [facility] at [phone] Thursday thru Thursday 8am-4pm. Procedure Note Melanie Lind MD - 06/16/2014Formatt ing of this note might be different from the original. Examination DXA CENTRAL-SPINE,HIP, AND/OR WHOLE BODY Clinical History BASELINE POSTMENOPAUSAL Technique Scans were acquired at the lumbar spine, left hip, . Findings Lowest T-score at a diagnostic region of interest: T-score: -2.1,ADAMARIS: Femoral neck, WHO lars gnosis: low bone mass or osteopenia Impression The measurements fulfill the WHO classif ication for low bone mass or osteopenia. The fracture risks are incre ased. _ Estimating Fracture Risk: The relationship between bone mineral de nsity (BMD) and risk of fracture is well established. As BMD decreases, risk increases. Quantifying risk is difficult and is usually limited to dean mation of the relative risk - a term which may have limited value when trying to discuss an individual's risk. Estimating the absolute risk for a patie nt requires an understanding of the incidence rate in a given population and consideration of multiple, partially independent, risk factors in addition to BMD. The World Health Organization (WHO) has developed a fracture risk prediction tool that calculates a ten-year risk of major osteoporotic fracture based on femoral neck bone density measurements a nd nine clinical risk factors for individuals who have not been treated fo r osteoporosis. This is available through an interactive web-based interfa ce (http://www.shef.ac.uk/FRAX/) and can be used to estimate a given patient' s absolute risk of major osteoporotic fracture or hip fracture over the next 1 0 years. These estimates may prove useful when discussing risk with a patie nt. It is important, however, to understand the tool's limitations and ho w a given individual's risk might differ from the tool's estimate. The too l does not take into account the dose-response associated with most risk factors. For example, the significant increase in risk associated with multipl e prior fractures compared to a single prior fracture is not taken into account . Similarly, the location of a previous fracture, the amount of glucocorticoids and number of cigarettes smoked are not considered. These limitations are discus sed in a Frequently Asked Questions section of the FRAX website which you ar e encouraged to review. DEXA data sheets with BMD measurements a nd plots are available in [employer] under the imaging tab. Paper copies will be sent to providers without [employer] access. If you have received this report without the data sheet and do not have access to [employer], please contact Radiology [facility] at [phone] Thursday thru Thursday 8am-4pm. Marla Wheatley APRN IMG DEXA ORDERABLES documented in this encounter Visit Diagnoses Not on filedocumented in this encounter Care Teams Safety Analyst Relationship Specialty Start Date End Date Marla Wheatley APRN PCP - General 08/20/10 05/20/15 1 [place] [address] documented as of this encounter
--- OUTSIDE RECORDS SUMMARY | 2022-07-25 10:53 | XMS_ITS | Encounter Summary ---
:1960 Author Organization [place] [address] Care Team Providers Name Role Phone Marla Wheatley JE Primary Care Provider Encounter Details Date Type Department Care Team Description 07/06/2014 Follow-Up Physical Therapy at Amber Carlson, PT [facility] [address] PHYSICAL MEDICINE & [place] [address] Lower back pain [facility] Sammy Cheung MD [address] [place] [address] (Primary Dx) [place] [address] Social History Tobacco Use Types Packs/Day Years Used Date Former Smoker Sex Assigned at Date Recorded Not on file documented as of this encounter Progress Notes Haley Carlson, PT - 07/06/2014 9:53 AM EDT Physical Therapy Progress Note Total treatment time: 40 minutes Total timed code treatment: 10 minutes Follow up visit for patient with 1. Lower back pain Current goals: Therapy Short Term Goals (2 weeks) 1. Patient to be indep with home exercise program. met 2. Pt able to do straight leg raise x 10 easily without increased pain. met 3. Pt able to sit for up to 15 min without increased pain. Progressing. Therapy Rewards Consultant Goals ( 4 weeks) 1. Patient to demo a decrease in self report disability by reducing Oswestry score to 8/50 in order to meet a clinically meaningful difference from initial evaluation score (MCID=6%). S: Patient reports pain 4/10 can't get to go away. Injection did not help. O: Electrical Stimulation - Unattended (17561) Therex: Strength/Endurance/ROM (06269) 10 min ?? TENS trial. Crossing pattern over lower back 4 pads. 2.0mamps. Each channel. ?? Leg pain gone after about 5 min. ?? Pt instructed in application and use of tens recommend 1 hour on and at least 1 hour off . Can use several times a day. Pt instructed to call with questions regarding use. ?? Review of exercise program. Doing ok with exercise. However pt notes that she is has not done them as much. A: Pt seems to get relief with tens. Still had back pain but relieved leg pain. Expect that she may be able to control her pain with the tens. Will trial over the week. P: Continue physical therapy for back pain. Discussed return in 1 week. documented in this encounter Plan of Treatment Upcoming Encounters Date Type Specialty Care Team Description 08/07/2022 TH Visit [facility] Nahid Carl PsyD (TeleHealth) One [facility] [address] [place] [address] (Wo rk) documented as of this encounter Visit Diagnoses Diagnosis Lower back pain - Primary Lumbago documented in this encounter Care Teams Tool Sharpener Relationship Specialty Start Date End Date Marla Wheatley APRN PCP - General 08/20/10 05/20/15 1 [place] [address] documented as of this encounter
--- OUTSIDE RECORDS SUMMARY | 2022-07-25 10:53 | XMS_ITS | Encounter Summary ---
:1960 Author Organization [facility] [address] Care Team Providers Name Role Phone Marla Wheatley APRN Primary Care Provider Encounter Details Date Type Department Care Team Description 07/06/2014 Orders Only Occupational Medicine Allan Darby abies exposure at [facility] MD Keyonna (Primary Dx) [facility] [place] [address] EMERGENCY MEDICINE [phone] [place], [place] [address] Social History Tobacco Use Types Packs/Day Years Used Date Former Smoker Sex Assigned at Date Recorded Not on file documented as of this encounter Plan of Treatment Upcoming Encounters Date Type Specialty Care Team Description 08/07/2022 TH Visit [facility] Nahid Carl PsyD (TeleHealth) [facility] [place] [address] (Wo rk) documented as of this encounter Visit Diagnoses Diagnosis Scabies exposure - Primary Contact with or exposure to other commun icable diseases documented in this encounter Care Teams Hydraulic Miner Relationship Specialty Start Date End Date Marla Wheatley APRN PCP - General 08/20/10 05/20/15 1 [place] [address] documented as of this encounter
--- OUTSIDE RECORDS SUMMARY | 2022-07-25 10:53 | XMS_ITS | Encounter Summary ---
:1960 Author Organization [facility] [place] [address] Care Team Providers Name Role Phone Marla Wheatley JE Primary Care Provider Encounter Details Date Type Department Care Team Description 05/02/2014 Telephone Pain Management at [facility] [place] [address] Social History Tobacco Use Types Packs/Day Years Used Date Former Smoker Sex Assigned at Date Recorded Not on file documented as of this encounter Miscellaneous Notes Telephone Encounter - Lroi Agudelo RN - 05/02/2014 12:18 PM EDT Fely Shaw :1960 Message left: I left a message on answering machine Ms. Shaw at 12:18 PM regarding her upcoming Neither lumbar epidural steroid injection with Dr. Jeff Karimi MD. Message included the followin. Patient instructed to arrive at 0925 hrs (30 minutes prior to procedure start time) on 05/03/2014 (date of procedure) with their uke driver. 2. Following instructions left in the [...] your body within the last two weeks? documented in this encounter Plan of Treatment Upcoming Encounters Date Type Specialty Care Team Description 08/07/2022 TH Visit [facility] Nahid Carl PsyD (TeleHealth) [facility] [address] [place], [place] [address] (Wo rk) documented as of this encounter Visit Diagnoses Not on filedocumented in this encounter Care Teams Drain Technician Relationship Specialty Start Date End Date Marla Wheatley APRN PCP - General 08/20/10 05/20/15 1 [place] [address] documented as of this encounter
--- OUTSIDE RECORDS SUMMARY | 2022-07-25 10:53 | XMS_ITS | Encounter Summary ---
:1960 Author Organization [facility] [place] [address] Care Team Providers Name Role Phone Susie López JE Primary Care Provider Encounter Details Date Type Department Care Team Description 08/06/2016 Hospital Encounter XRay [place] [facility] Janett Valle, Pain in left hip [address] [place] [address] [facility] [address] [place] [phone] OCCUPATIONAL MEDICINE [place] [id number] Social History Tobacco Use Types Packs/Day Years [...] Spine Center Nahid Carl PsyD (TeleHealth) [facility] [address] [place], [place] [address] (Wo rk) documented as of this encounter Procedures Procedure Name Priority Date/Time Associated Diagnosis Comme nts XR PELVIS AND HIP 2 Routine 08/06/2016 9:01 AM Pain in left hi p Results for this VIEWS LEFT EST procedure are i n the results section. documented in this encounter Results XR Pelvis w AP & Lat Hip Left (08/06/2016 9:01 AM EST) Anatomical Region Laterality Modality Pelvis, Hip Left Digital Radiography Specimen (Source) Anatomical Location Collection Method / Collectio n Time Received Time / Laterality Volume Impressions 08/06/2016 11:49 AM EST 1. ??Mild bilateral hip osteoarthritis. 2. ??Bilateral gluteal insertional calci fic tendinopathy. I have personally reviewed the image(s) and the residents interpretation and agree with the findings, Melanie joshi 08/06/2016 11:49 AM Narrative 08/06/2016 11:49 AM EST EXAMINATION: XR PELVIS W AP AND LAT HIP LEFT CLINICAL HISTORY: L top of leg pain and numbness -neurologic compression and intermittent pain TECHNIQUE: AP pelvis, frontal and latera l radiographs of the left hip COMPARISON: None FINDINGS: Mild joint space narrowing involving the bilateral hips, with small associated marginal osteophytes. No fracture or dis location. Small ossific densities are seen adjacent to bilateral greater troch anters, could represent gluteal insertional calcific tendinopathy. Degen erative changes of the lumbar spine. The sacrum is obscured by overlying bowel ga s. Procedure Note Melanie Lind MD - 08/06/2016Formatt ing of this note might be different from the original. EXAMINATION: XR PELVIS W AP AND LAT HIP LEFT CLINICAL HISTORY: L top of leg pain and numbness -neurologic compression and intermittent pain TECHNIQUE: AP pelvis, frontal and latera l radiographs of the left hip COMPARISON: None FINDINGS: Mild joint space narrowing involving the bilateral hips, with small associated marginal osteophytes. No fracture or dis location. Small ossific densities are seen adjacent to bilateral greater troch anters, could represent gluteal insertional calcific tendinopathy. Degen erative changes of the lumbar spine. The sacrum is obscured by overlying bowel ga s. IMPRESSION 1. Mild bilateral hip osteoarthritis. 2. Bilateral gluteal insertional calcifi c tendinopathy. I have personally reviewed the image(s) and the residents interpretation and agree with the findings, Melanie joshi 08/06/2016 11:49 AM Janett Valle MD IMG DX ORDERABLES documented in this encounter Visit Diagnoses Diagnosis Pain in left hip Pain in joint, pelvic region and thigh documented in this encounter Care Teams Cutter Plastics Rolls Relationship Specialty Start Date End Date Susie López APRN PCP - General 05/21/15 06/30/19 documented as of this encounter
--- OUTSIDE RECORDS SUMMARY | 2022-07-25 10:53 | XMS_ITS | Encounter Summary ---
:1960 Author Organization [facility] [place] [address] Care Team Providers Name Role Phone Marla Wheatley JE Primary Care Provider Encounter Details Date Type Department Care Team Description 11/19/2012 Orders Only Occupational Medicine at Sumaya Singh APRN [facility] Nahid vincent [place] [address] [place] [address] [phone] (Wo rk) Social History Tobacco Use Types Packs/Day Years Used Date Former Smoker Sex Assigned at Date Recorded Not on file documented as of this encounter Plan of Treatment Upcoming Encounters Date Type Specialty Care Team Description 08/07/2022 TH Visit [facility] Nahid Carl PsyD (TeleHealth) [facility] [place], [place] [address] (Wo rk) documented as of this encounter Procedures Procedure Name Priority Date/Time Associated Diagnosis Comme nts MEASLES (RUBEOLA) Routine 11/19/2012 3:50 PM Resu lts for this ANTIBODY, IGG EST procedure are in the results section. MUMPS ANTIBODY, IGG Routine 11/19/2012 3:50 PM Re sults for this EST procedure are i n the results section. documented in this encounter Results Measles (Rubeola) Antibody, IgG (11/19/2012 3:50 PM EST) athologist Signature Rubeola IgG Pos Pos CERNER MILLENNIUM Comment: Expected Values: A Negative res ult indicates non-immunity. Specimen Anatomical Collection Method Collection Time Receive d Time (Source) Location / / Volume Laterality Blood specimen 11/19/2012 3:50 PM 013 9:00 (specimen) EST AM EST Resulting Agency Comment Spec In Lab Sumaya Singh APRN IMMUNOLOGY ORDERABLES Performing Organization Address City/[facility]/ZIP [facility] [place] [address] CERNER MILLENNIUM Mumps Antibody, IgG (11/19/2012 3:50 PM EST) athologist Signature Mumps IgG Pos Pos CERNER MILLENNIUM Specimen Anatomical Collection Method Collection Time Receive d Time (Source) Location / / Volume Laterality Blood specimen 11/19/2012 3:50 PM 013 9:00 (specimen) EST AM EST Resulting Agency Comment Spec In Lab Sumaya Singh APRN IMMUNOLOGY ORDERABLES Performing Organization Address City/[facility] Phon e Number [address] [facility] documented in this encounter Visit Diagnoses Not on filedocumented in this encounter Care Teams Recordak Operator Relationship Specialty Start Date End Date Marla Wheatley APRN PCP - General 08/20/10 05/20/15 1 [place] [address] documented as of this encounter
--- OUTSIDE RECORDS SUMMARY | 2022-07-25 10:53 | XMS_ITS | Encounter Summary ---
:1960 Author Organization [facility] [place] [address] Care Team Providers Name Role Phone Marla Wheatley JE Primary Care Provider Encounter Details Date Type Department Care Team Description 06/22/2014 Telephone Pain Management [place] [address] Social History Tobacco Use Types Packs/Day Years Used Date Former Smoker Sex Assigned at Date Recorded Not on file documented as of this encounter Miscellaneous Notes Telephone Encounter - Shanti Capellan RN - 06/22/2014 1:01 PM EDT Fely Shaw :1960 Contact made with patient: I spoke to Ms. Shaw at 1:01 PM regarding her upcoming lumbar epidural steroid injection scheduled on 06/23/2014 scheduled at 8:[address] Jeff Karimi MD. Medication and Allergy reconciliation: 1. Changes were made in the telephone encounter per patient; marked as reviewed, and closed. 2. Patient confirmed no IVP dye allergy. 3. Have you had any steroid injections anywhere in your body within the last two weeks? no Arrival time: The patient was instructed to arrive at 7:30 am (30 minutes prior to procedure start time - 60 minutes prior for RF patients with a pacemaker) on 06/23/2014. Regulator Mechanic: The patient was reminded that they need to have a canal driver accompany them to her procedure who will remain onsite. Antibiotics/Skin assessment/Illness symptoms/Pain level assessment : 1. The patient confirmed that she is not taking antibiotics at this time. 2. The patient confirmed that she does not have any rashes, blisters, or skin breakdown on their body. 3. The patient confirmed that she does not have any active infections. 4. The patient confirmed that she does not have any symptoms of illness: fever, chills, cold, flu, nausea, vomiting. 5. The patient confirmed that she is still experiencing significant pain. (Significant pain is defined as interfering with performing ADL.) Pain and Anti-anxiety Medications: 1.All Other Procedure Patients: The patient was instructed that if they take daily pain or anti-anxiety medications, they can and should continue taking on the day of the procedure. Does patient have history of any diagnosed bleeding disorders: No Anticoagulants: No Implant: Patient has pacemaker/defibrillator: No Prior to checking in at [employer], please be sure to empty your bladder. Patient confirmed understanding that if they do not follow the above their instructions, their procedure is likely to be cancelled. Shanti Capellan RN documented in this encounter Plan of Treatment Upcoming Encounters Date Type Specialty Care Team Description 08/07/2022 [facility] Nahid Carl PsyD (TeleHealth) [facility] [address] [place] [address] (Wo rk) documented as of this encounter Visit Diagnoses Not on filedocumented in this encounter Care Teams Wood Milling Machine Operator Relationship Specialty Start Date End Date Marla Wheatley APRN PCP - General 08/20/10 05/20/15 1 [place] [address] documented as of this encounter
--- OUTSIDE RECORDS SUMMARY | 2022-07-25 10:53 | XMS_ITS | Encounter Summary ---
:1960 Author Organization [facility] [place] [address] Care Team Providers Name Role Phone Marla Wheatley JE Primary Care Provider Encounter Details Date Type Department Care Team Description 08/14/2014 External Results Neurology at [facility] Sanju Machado MD [facility] [place] [address] NEUROLOGY DEPT. [phone] [place], [place] [address] (Wo rk) Social History Tobacco [...] PsyD (TeleHealth) [facility] [address] [place] [address] (Wo rk) documented as of this encounter Procedures Procedure Name Priority Date/Time Associated Diagnosis Comme nts EMG SCAN Routine 08/14/2014 documented in this encounter Results Scan Doc: EMG (08/14/2014) Narrative This result has an attachment that is no t available. Sanju Machado MD MEDIA MGR SCAN EXT ORDR/RSLT documented in this encounter Visit Diagnoses Not on filedocumented in this encounter Care Teams Infusion Nurse Relationship Specialty Start Date End Date Marla Wheatley APRN PCP - General 08/20/10 05/20/15 1 [place] [address] documented as of this encounter
--- OUTSIDE RECORDS SUMMARY | 2022-07-25 10:53 | XMS_ITS | Encounter Summary ---
:1960 Author Organization [facility] [place] [address] Care Team Providers Name Role Phone Susie López APRN Primary Care Provider Encounter Details Date Type Department Care Team Description 06/15/2015 Hospital Encounter Laboratory Janett Valle MD Screening [facility] [place] [address] OCCUPATIONAL [phone] [place] [id number] (Wo rk) Social History Tobacco Use Types [...] Carl PsyD (TeleHealth) [facility] [address], [place] [address] (Wo rk) documented as of this encounter Procedures Procedure Name Priority Date/Time Associated Diagnosis Comme nts LIPID PANEL (REFLEX Routine 06/15/2015 6:47 AM Screening Re sults for this DIRECT LDL) EDT procedure are i n the results section. documented in this encounter Results (ABNORMAL) Lipid panel (fasting) (06/15/2015 6:47 AM EDT) P athologist Signature Chol, Total 240 (H) <=199 CERNER mg/dL [facility] Comment: Recommendations of the NCEP Adult Treatm ent Panel for the following risk cutoff thresholds for the [place] popul[place] n: Desirable: <200 mg/dL Borderline High: 200-239 mg/dL High: > or = 240 mg/dL Triglycerides 64 <=149 mg/dL CERDAVY MILLAKIRA [facility] Comment: Reference Range: Normal triglycerides: ??<150 mg/dL Borderline high: ??150-199 mg/dL High: ??200-499 mg/dL Very high: ??>mj=834 mg/dL REHTT 2001; 285(19):2632-7930 HDL 85 >=40 mg/dL CERDAVY MILLAKIRAIUM Comment: Reference range: ??Low HDL: ?? < 40 mg/dL ??Normal: ?40-60 mg/dL ??Desirable: > 60 mg/dL RHETT 2001; 285(19):8609-9709 LDL Cholesterol 142 (H) <=99 mg/dL AISHA VALDES Comment: Reference range: ?? Optimal: ?<100 mg/dL ?? Near Optimal/Above Optimal: ?? 100-1 29 mg/dL ?? Borderline high: ?130-159 mg/dL ?? High: ? 160-189 mg/dL ?? Very high: ?>ni=141 mg/dL RHETT 2001: 285(19):0719-8193 Chol/HDL Ratio 2.8 ratio AISHA BARRAZA Comment: A Cholesterol to HDL ratio below 4:1 is desirable. ??Studies suggest that increased CAD risk occurs at ratios abov e 5 for females and above 6 for men. ? [place] Heart Association ??(htt p://www.americanheart.org) ? Radha Int Med, 1994; 121:641 ? AM J Med, 1998; 105(1A):48S Specimen Anatomical Collection Method Collection Time Receive d Time (Source) Location / / Volume Laterality Blood specimen 06/15/2015 6:47 AM 015 6:50 (specimen) EDT AM EDT Resulting Agency Comment Spec In Lab Janett Valle MD CHEMISTRY ORDERABLES Performing Organization Address City/State/[place] [address] AISHA MOLINA documented in this encounter Visit Diagnoses Diagnosis Screening Screening for unspecified condition documented in this encounter Care Teams Signal Maintainer Relationship Specialty Start Date End Date Susie López APRN PCP - General 05/21/15 06/30/19 documented as of this encounter
--- OUTSIDE RECORDS SUMMARY | 2022-07-25 10:53 | XMS_ITS | Encounter Summary ---
:1960 [place] [address] Care Team Providers Name Role Phone Marla Wheatley JE Primary Care Provider Reason for Visit Reason Comments Back Pain Encounter Details Date Type Department Care Team Description 08/03/2014 Emergency Emergency Department Michele Lawrence MD Lower back pain [facility] [place] [address] [place] [address] [phone] Social History Tobacco Use Types Packs/Day Years Used Date Former Smoker Sex Assigned at Date Recorded Not on file documented as of this encounter Last Filed Vital Signs Vital Sign Reading Time Taken Comments Blood Pressure 146/69 08/03/2014 9:31 AM EST Pulse 81 08/03/2014 9:31 AM EST Temperature 36.5 ??C (97.7 ??F) 08/03/2014 7:12 AM EST Respiratory Rate 16 08/03/2014 9:31 AM EST Oxygen Saturation 98% 08/03/2014 7:12 AM EST Inhaled Oxygen Concentration - - Weight - - Height - - Body Mass Index - - documented in this encounter Discharge Instructions Discharge InstructionsEdi Ocasio MD - 08/03/2014 9:23 AM EST Return to the Emergency Department if you experience fever, chills, weakness, numbness, if your painis not controlled, or if you have any new symptoms or concerns. If your back pain is not improving you may need x-rays or an MRI. It is important that you follow upwith your primary care doctor for a recheck within the next week. Your doctor may prescribe medication to help control your symptoms. If you are prescribed Percocet or Vicodin it is important to follow certain instructions: do no drink alcohol, drive a car or operatemachinery with this medication - it will make you sleepy. These medications also contain acetaminophen (abbreviated APAP on the medication bottle) which is the main ingredient in Tylenol - do not take extra Tylenol with this medication as it is dangerous for your liver. Flexeril, another common medication for back pain, can also make you sleepy. You should not drive or operated machinery with this medication either. documented in this encounter Medications at Time [...] 08/26/2016 tablet documented as of this encounter ED Notes Michele Allan MD - 08/03/2014 8:25 AM EST Brief Attending Note I cared for the patient with the resident physician. Please see Dr. Palacios's [facility] for more details. HPI: Fely Shaw is a 54 y.o. who presents to the ED with low back pain. The pain began in January, 6 months prior to arrival and has waxed and waned since that time. However it's recently intensified. She describes it as dull, throbbing, greatest in her low back. She has no associated fevers or chills. She previously had relief with meloxicam but this is been stopped. She is taking Decadron since yesterdaywithout relief. She's used Vicodin with mild to moderate relief. Patient is uncomfortable but symmetric lower extremity strength and normal gait. ED Course: Patient was given Valium for spasm and oxycodone for pain. Good relief, will use meds at home Assessment/plan: Low back pain Michele Allan MD 08/03/14 0940 Michele Allan MD - 08/03/2014 8:09 AM EST Fely Shaw is an 54 y.o. female who presents to the ED with: Chief Complaint Patient presents with ??? Back Pain I saw this patient 08/03/2014 at 0730 HPI Fely Shaw is a 54 y.o. female who presents to the Emergency Department a history of chronic backpain with sensory deficits and osteopenia presents to the ED with worsening back pain starting 6 days ago. The patient reports that her back pain had been constant but stable until Thursday of last week when she experienced an acute worsening of her pain with a stabbing left-side pain located in her lumbar region. She reports that the pain radiates down her left leg in a sharp fashion and also states that her left leg feels heavy and with some difficulty with left hip flexion. She report ongoing sensory deficits to sharp, dull, and pressure sensation on the left anterior thigh which have been ongoing and with no recent changes. Pain exacerbated by sitting and lying on her back, sitting, extension and flexion of her back. States she had an MRI of her back yesterday afternoon in which she had lie one back flat for over 40 minutes and feels this may exacerbated the pain overnight. Reports she took 3 doses of Vicodin (5-325) overnight for pain with some relief. States that this morning her pain wasso intense that she could not bend to put on her socks or shoes and received assistance from her . Pain mildly improved with standing and walking brief distances or standing at rest. Denies incontinence, tremor, headache, difficulty with gait, foot drop/drag. Patient connected with [facility] and as well as Dr. Gupta (Neuro). The patient received MRI yesterday showing evidence lumbarization of left sacral segment and partial lumbarization of right sacral segment. Patient reports she saw Dr. Cheung yesterday with follow-up regarding her MRI tomorrow (08/04). Currently on Decadron taper. Review of Systems: Review of Systems Constitutional: Negative for fever, chills, diaphoresis and fatigue. HENT: Negative. Eyes: Negative for visual disturbance. Respiratory: Negative for chest tightness and shortness of breath. Cardiovascular: Negative for chest pain. Gastrointestinal: Negative for nausea, vomiting, abdominal pain, diarrhea and constipation. Genitourinary: Negative for decreased urine volume and difficulty urinating. Musculoskeletal: Positive for back pain. Negative for gait problem. Primarily located on left in a focal distribution. Skin: Negative. Neurological: Positive for weakness and numbness. Negative for dizziness, tremors, light-headedness and headaches. Numbness located along the left anterior thigh. Patient Vitals for the past 24 hrs: BP Temp Pulse Resp SpO2 08/03/14 0712 148/78 mmHg 36.5 ??C (97.7 ??F) 94 16 98 % Physical Exam: Physical Exam Constitutional: She is oriented to person, place, and time. She appears well- developed and well-nourished. She appears distressed. HENT: Head: Normocephalic and atraumatic. Nose: Nose normal. Eyes: Conjunctivae normal and EOM are normal. Right eye exhibits no discharge. Left eye exhibits no discharge. No scleral icterus. Neck: Normal range of motion. Neck supple. Cardiovascular: Normal rate, regular rhythm and normal heart sounds. Pulmonary/Chest: Effort normal and breath sounds normal. No respiratory distress. Abdominal: Soft. Bowel sounds are normal. She exhibits no distension. There is no tenderness. Musculoskeletal: She exhibits tenderness. She exhibits no edema. Poor ROM in thoracic and lumbar extension and flexion. Acutely tender between left L3-L5 with a tense palpable band along the spinous process. Neurological: She is alert and oriented to person, place, and time. She displays abnormal reflex. Coordination normal. +4/5 strength in left hip flexion/extension, left knee flexion/extension. Left and right ankle dorsiflexion/plantar flexion, right LE neurological exam otherwise 5/5. Decreased sensation along the L4-L5 dermatomal distribution on the left to soft touch and pressure. Reduced DTR in left patellar tendon. Skin: Skin is warm and dry. No rash noted. She is not diaphoretic. No erythema. No pallor. Psychiatric: She has a normal mood and affect. Her behavior is normal. ED Course: - Patient was evaluated and discussed with Dr. Allan (attending) and Dr. Ocasio (senior resident)_ - Medications, allergies and past medical history reviewed - Medications and fluids administered: Acetaminophen (650 mg PO x 1 dose) Valium (5 mg PO x 1 dose) Oxycodone (10 mg PO x 1 dose) - I reviewed the patient's MRI collected on 08/03: As noted above. Assessment and Plan: Assessment: 54 y.o. female with a history of chronic back pain with sensory deficits and osteopenia presents to the ED with worsening back pain starting 6 days ago. The patient is currently being followed by Dr. Cheung (Neurosurgery) and Dr. Karimi (pain clinic) for her lower back pain. She was seen byDr. Cheung yesterday and will follow up with him tomorrow in regards to her back pain and recent MRI findings. Today the patient requires symptomatic control of her back pain with back-pain work-up being otherwise managed by her neurosurgeon and pain physician. It appears that the patient is experiencing back pain likely from spasm along the paraspinal distribution of the lumbar musculature that may be accounting for the recent change in her pain profile. Patient provided with Tylenol, oxycodone, andvalium for relief of pain and spasm. Patient presents with no history concerning for cauda equina orspinal cord compression. Patient with some reports of left weakness with reduced strength and sensation upon physical exam which could be concerning for radiculopathy there have been no significant acute neurological changes prior to her appointment yesterday aside from her pain. Currently the patienthas appropriate follow-up in place with her neurosurgeon with an appointment tomorrow to review her recent MRI. Upon treatment, the patient tolerated oxycodone, valium, and acetaminophen well in an effort to treat spasm and her acute back pain. The patient will discharge on a short dose of valium and oxycodone to treat her symptoms through her upcoming appointments. Plan: - Oxycodone (5-10 mg every 4 hours as needed for pain) - Diazepam (5 mg every 6 hours as needed for muscle spasm) - Follow up with Dr. Cheung during her regularly scheduled appointment tomorrow and her PCP as recommended following her ED visit. - Return precautions were discussed between the patient and Dr. Ocasio. Sanju Palacios, Resident 08/03/14 1706 ED ATTENDING ATTESTATION The patient was seen in conjunction with Dr. Palacios, the resident physician. I have independently performed the daniels portions of the history and physical exam. I have reviewed all diagnostic studies personally including labs, imaging studies and EKGs. I have discussed the details of the case with the resident and agree with the assessment and plan as described in the resident note above unless noted in my separate note. Michele Allan MD 08/04/14 1220 Sonia Hammond RN - 08/03/2014 7:[address] Palacios in to evaluate pt. at bedside. Sonia Hammond RN - 08/03/2014 7:30 AM EST Pt. To #14 via ambulation. A/O x3. RR even and nonlabored. C/p low back pain radiating down left leg. Denies numbness or tingling in LLE. Denies bowel or bladder incontinence. Pt. Unable to sit down due to pain. Has been taking Prednisone and recently started on Decadron. documented in this encounter Miscellaneous Notes Discharge Summary - Provider, Conchita - 08/04/2014 12:00 AM EST ED Triage - Shan Pizarro RN - 08/03/2014 7:21 AM EST Pt with a history of back problems. She is being followed by a neurosurgeon at [facility]. She had an MRI yesterday at [facility]. She was started on Decadron yesterday. She is having an increase in her pain radiating down her left leg. She denies any injury. She denies any dysuria or urinary frequency. Pt is awake, alert and oriented x 3. Skin color is pink warm and dry. Miscellaneous - ProviderConchita - 08/03/2014 12:00 AM EST documented in this encounter Plan of Treatment Upcoming Encounters Date Type Specialty Care Team Description 08/07/2022 TH Visit [facility] Nahid Carl PsyD (TeleHealth) [facility] [address] [place] [address] (Wo rk) documented as of this encounter Visit Diagnoses Diagnosis Lower back pain Lumbago documented in this encounter Administered Medications Inactive Administered Medications - up to 3 most recent administrations Medication Order MAR Action Action Date Dose Rate Site acetaminophen (TYLENOL) 325 mg tablet 1 dose, Starting on Laurita 08/03/14 at 0759, Until Laurita 08/03/14 at 0815, SONIA HAMMOND: cabinet override acetaminophen (TYLENOL) tablet 650 mg Given 08/03/2014 8:15 AM EST 650 mg 650 mg, Oral, ONCE, 1 dose, On Laurita 08/03/14 at 0830, Maximum dose of acetaminophen is 4000 mg from all sources in 24 hours., STAT diaZEPam (VALIUM) 5 mg tablet 1 dose, Starting on Laurita 08/03/14 at 0800, Until Laurita 08/03/14 at 0815, SONIA HAMMOND: cabinet override diaZEPam (VALIUM) tablet 5 mg Given 08/03/2014 8:15 AM EST 5 mg 5 mg, Oral, ONCE, 1 dose, On Laurita 08/03/14 at 0830, STAT oxyCODONE (ROXICODONE) immediate release Given 08/03/2014 8:40 A M EST 10 mg tablet 10 mg 10 mg, Oral, ONCE, 1 dose, On Laurita 08/03/14 at 0900, STAT documented in this encounter Active and Recently Administered Medications Times are shown in EST. Scheduled Medication Order 08/01/2014 08/02/2014 08/03/2014 acetaminophen (TYLENOL) tablet 650 mg (COMPLETED) 814 (Given - Provider: Sonia Hammond RN) 650 mg, Oral, ONCE, 1 dose, Laurita 08/03/14 at 0830, Maximum dose of acetaminophen is 4000 mg from all sources in 24 hours., STAT diaZEPam (VALIUM) tablet 5 mg (COMPLETED) 814 (Given - Provider: Sonia Hammond RN) 5 mg, Oral, ONCE, 1 dose, Laurita 08/03/14 at 0830, STAT oxyCODONE (ROXICODONE) immediate release tablet 10 mg (COMPLETED ) 839 (Given - Provider: Sonia Hammond RN) 10 mg, Oral, ONCE, 1 dose, Laurita 08/03/14 at 0900, STAT documented in this encounter Care Teams Director Search Relationship Specialty Start Date End Date Marla Wheatley APRN PCP - General 08/20/10 05/20/15 [address] [place] [address] documented as of this encounter
--- OUTSIDE RECORDS SUMMARY | 2022-07-25 10:53 | XMS_ITS | Encounter Summary ---
:1960 Author Organization [facility] [place] [address] Care Team Providers Name Role Phone Rene Susie JE Primary Care Provider Reason for Visit Diagnostic Test (Routine) - Closed Specialty Diagnoses / Procedures Referred By Contact Refer red To Contact Radiology Diagnoses Low back pain, unspecified back pain laterality, with sciatica presence unspecified Pain of left sacroiliac joint Sensory disturbance Sammy Cheung MD [facility] Rad Ct Scan Procedures CT Joint Injection - SI Joint Therapeutic CT Joint Injection - SI Joint Bilateral [address] [place] [address] [place] [address] Referral ID Status Reason Start Date Expiration Date Visits V isits Requested Authorized [id number] Closed Specialty 12/18/2015 12/17/2016 1 1 Service Requested Encounter Details Date Type Department Care Team Description 12/18/[address] Scan at [facility] Sammy Cheung, Low back pain, unspecified b ack pain laterality, with sciatica presence unspecified; [facility] Pain of left sacroiliac joint; Drive [address] [place] [phone] Social History Tobacco Use Types Packs/Day Years [...] (TeleHealth) [facility] [address], [place] [address] (Wo rk) documented as of this encounter Procedures Procedure Name Priority Date/Time Associated Diagnosis Comme nts CT JOINT INJECTION - Routine 12/18/2015 8:31 AM Low back pain, Results for this SI JOINT THERAPEUTIC EDT unspecified back pro cedure are in pain laterality, the results with sciatica section. presence unspeci fied Pain of left sacroiliac joint Sensory disturbance documented in this encounter Results CT Joint Injection - SI Joint Therapeutic (12/18/2015 8:31 AM EDT) Anatomical Region Laterality Modality Computed Tomography Specimen (Source) Anatomical Location Collection Method / Collectio n Time Received Time / Laterality Volume Impressions 12/18/2015 5:46 PM EDT IMPRESSION: Successful CT guided ??left ??SI joint i njection. IBrandon, was present for th e entire procedure. I have personally reviewed the image(s) and the residents interpretation and agree with the findings, Brandon Prabhakar at 12/18/2015 5:46 PM Narrative 12/18/2015 5:46 PM EDT EXAMINATION: CT JOINT INJECTION SI JOINT THERAPEUTIC/LEFT CLINICAL HISTORY: LOW PACK PAIN, PAIN OF LEFT SACROILIAC JOINT, SENSORY DISTURBANCE COMPARISON: MRI lumbar spine exam 11/05/19 16 TECHNIQUE: ??CT guided SI joint injectio n. ?? PROCEDURE: The risks and benefits of the procedure explained to patient and informed consent was obtained. Patient w as placed prone on the CT fluoroscopic table and the sacrum was scanned. The in ferior two thirds of the left SI joint was identified and the overlying skin wa s marked and then prepped and draped in sterile fashion. 1% lidocaine was used f or local anesthesia. Under careful fluoroscopic guidance a 22-gauge spinal was advanced into the inferior aspect of the left anterior SI joint. A combinatio n of 2 cc of Bupivacaine and 1 cc of 80mg per cc of Depo-Medrol was then inje cted without complications. FINDINGS: Pre-procedure, the patient complaining o f pain, measuring pain scale of ??4 out of 10. 15 minutes after the procedure, patient reported pain improvement, measuring pain scale of 0 out of 10. Procedure Note Brandon Prabhakar MD - 12/18/2015Format ting of this note might be different from the original. EXAMINATION: CT JOINT INJECTION SI JOINT THERAPEUTIC/LEFT CLINICAL HISTORY: LOW PACK PAIN, PAIN OF LEFT SACROILIAC JOINT, SENSORY DISTURBANCE COMPARISON: MRI lumbar spine exam 11/05/19 16 TECHNIQUE: CT guided SI joint injection. PROCEDURE: The risks and benefits of the procedure explained to patient and informed consent was obtained. Patient w as placed prone on the CT fluoroscopic table and the sacrum was scanned. The in ferior two thirds of the left SI joint was identified and the overlying skin wa s marked and then prepped and draped in sterile fashion. 1% lidocaine was used f or local anesthesia. Under careful fluoroscopic guidance a 22-gauge spinal was advanced into the inferior aspect of the left anterior SI joint. A combinatio n of 2 cc of Bupivacaine and 1 cc of 80mg per cc of Depo-Medrol was then inje cted without complications. FINDINGS: Pre-procedure, the patient complaining o f pain, measuring pain scale of 4 out of 10. 15 minutes after the procedure, patient reported pain improvement, measuring pain scale of 0 out of 10. IMPRESSION IMPRESSION: Successful CT guided left SI joint injec tion. I, Brandon Prabhakar, was present for th e entire procedure. I have personally reviewed the image(s) and the residents interpretation and agree with the findings, Brandon Prabhakar at 12/18/2015 5:46 PM Sammy Cheung MD IMG CT ORDERABLES documented in this encounter Visit Diagnoses Diagnosis Low back pain, unspecified back pain lat erality, with sciatica presence unspecified Pain of left sacroiliac joint Disorders of sacrum Sensory disturbance Disturbance of skin sensation documented in this encounter Administered Medications Inactive Administered Medications - up to 3 most recent administrations Medication Order MAR Action Action Date Dose Rate Site methylPREDNISolone acetate Given 12/18/2015 9:00 AM EDT 80 mg (depo-MEDROL) injection 80 mg 80 mg, Intramuscular, ONCE, 1 dose, On Thu12/18/15 at 0900, Routine documented in this encounter Care Teams Bark Press Operator Relationship Specialty Start Date End Date Susie López APRN PCP - General 05/21/15 06/30/19 documented as of this encounter
--- OUTSIDE RECORDS SUMMARY | 2022-07-25 10:53 | XMS_ITS | Encounter Summary ---
:1960 Author Organization [facility] [place] [address] Care Team Providers Name Role Phone Marla Wheatley JE Primary Care Provider Encounter Details Date Type Department Care Team Description 05/30/2014 [facility] [place] [address] Social History Tobacco Use Types Packs/Day Years Used Date Former Smoker Sex Assigned at Date Recorded Not on file documented as of this encounter Miscellaneous Notes Telephone Encounter - Roxanne Baca LPN - 05/30/2014 12:25 PM EDT Fluoroscopy Procedure Request Procedure Requested: lumbar epidural steroid injection Date(s) of Last Procedure: 05/03/14 Did requested procedure relieve pain? _x__ Yes - For how long 10 days? 50 % of relief received from previous injection. Have you had any steroid injections anywhere in your body within the last two weeks? no Patient taking anticoagulants? _x__ No Patient has pacemaker/defibrillator: No Changes in usual pain pattern or pertinent recent trauma or surgery? _x__ No, patient transferred or will be contacted by student ministries director to make appointment for requested procedure. Patient's questions regarding requested procedure were answered and patient verbalized understanding. Patient knows how to contact the Pain Management Center and understands that they may do so at any time should they have further questions or concerns. Roxanne Baca LPN documented in this encounter Plan of Treatment Upcoming Encounters Date Type Specialty Care Team Description 08/07/2022 TH Visit [facility] Nahid Carl PsyD (TeleHealth) [facility] [address] [place] [address] (Wo rk) documented as of this encounter Visit Diagnoses Not on filedocumented in this encounter Care Teams Aviation Boatswain'S Mate Relationship Specialty Start Date End Date Marla Wheatley APRN PCP - General 08/20/10 05/20/15 [address] [place] [address] documented as of this encounter
--- OUTSIDE RECORDS SUMMARY | 2022-07-25 10:53 | XMS_ITS | Encounter Summary ---
:1960 Author Organization [facility] [place] [address] Care Team Providers Name Role Phone Marla Wheatley [employer] ASSEMBLER Primary Care Provider Encounter Details Date Type Department Care Team Description 04/13/2014 Office Visit Physical Therapy at Amber Quintanilla, PT [facility] DR PHYSICAL MEDICINE & [place] [address] Lower back pain [facility] Marla Wheatley, [employer] ASSEMBLER [address] [place] [address] (Primary Dx) [facility] Sammy Cheung MD [address] [place] [address] [place] [address] Social History Tobacco Use Types Packs/Day Years Used Date Former Smoker Sex Assigned at Date Recorded Not on file documented as of this encounter Progress Notes Yisel Quintanilla, PT - 04/13/2014 8:17 AM EDT Images from the original note were not included. PHYSICAL THERAPY INITIAL EXAMINATION Date of Exam/First Treatment: 04/13/2014 Date of onset: January 2014 Referring Provider: Sammy Cheung Diagnosis: 1. Lower back pain CURRENT HISTORY: Fely Shaw is a 53 y.o. female referred to physical therapy for treatment of back pain. Beginningin January had back pain and leg pain. Anterior thigh and top of leg got numb. meloxicam really does well. Leg is number with less but pain. Started as back and buttock pain on shanna left. Driving will aggrevate.. vaccumming lifting will increase discomfort better then was but still. Moving pt around. MRI impression: A Centrally extruded disc is present at L5-S1. Cause: no known injury has had back issues before Never as bad as this. Pain: best 0/10; worst 7/10; to the left thigh aggravating factors: sneezing, flexion, extension, sitting and standing for 10 minutes relieving factors: meloxicam ice helps complains of numbness and tingling anterior thigh. 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 Functional Limitations: unable to lift Pain with assisting pt. Unable to sit for long periods 10 min in clinic Unable to stand for long periods. CLINICAL FINDINGS: Posture: decreased weight on the left. Gait: no limp noted Range of motion: Range of motion (deg) lumbar flexion 30 extension 10 SB right 50 SB left 50 rotation right 60 rotation left 60 hip flexion 100 abduction 45 Repeated Movements: Repeated flexion in standing: deferred at this time symptoms Repeated extension in standing: deferred at this time symptoms Strength ( /5) Hip flexion (L2) Knee Ext (L3) Knee Flexion (S2) Ankle DF (L4) Hallux Ext (L5) Ankle Ev. (L5) Ankle PF (S1) Right 5 5 5 5 5 5 5 Left 4+ 4 4 5 5 5 5 Flexibility: decreased: hamstring, ITB and piriformis Special Tests: Slump + SLR + Prone instability test not performed CALVIN + SI compression - SI distraction - Sacral thrust not performed Thigh thrust not performed Maria Teresa - Allan not performed Lumbar spring + Joint mobility: segmental mobility at lumbar spine: Normal; segmental mobility at the thoracic spine: Normal Palpation: Tenderness with palpation at over the l5s1 junction. into the ms of the lower back Sensation: Touch: abnormal anterior thigh lateral thigh intact, medial thigh intact calf intact. Oswestry: CLINICAL EVALUATION AND DIAGNOSIS: These findings are consistent with low back pain associated with some tightness in the hip and disc extrusion. She will benefit from exercise to increase strength of the leg, improve flexibility of thehip. Will continue to let back heal at this point. Pt is supposed to be getting a steriod injection in to the back in [facility] near future.This may calm the back down enough to allow exercise to improve theback motion. Expect with skilled physical therapy interventions patient will be able to return to prior level of function. GOALS: Therapy Short Term Goals (2 weeks) 1. Patient to be indep with home exercise program. 2. Pt able to do straight leg raise x 10 easily without increased pain. 3. Pt able to sit for up to 15 min without increased pain. Therapy Fruit Room Hand Goals ( 4 weeks) 1. Patient to demo a decrease in self report disability by reducing Oswestry score to 8/50 in order to meet a clinically meaningful difference from initial evaluation score (MCID=6%). INITIAL TREATMENT INCLUDED: Examination and instruction in a home exercise program (refer to chart copy or to scan doc in chart review for details), patient education regarding physical therapy plan of care, anatomy and diagnosis. PLAN: Frequency and duration: 1 x in 2 weeks Treatment plan: Therapeutic exercise, Patient/Family education, Posture and Home Exercise Program Total Treatment time: 60 min Total Timed Coded Treatment: 0 min The plan has been discussed with the patient and Fely Shaw has agreed with the planned treatment. YISEL QUINTANILLA PT documented in this encounter Plan of Treatment Upcoming Encounters Date Type Specialty Care Team Description 08/07/2022 TH Visit [facility] Nahid Carl PsyD (TeleHealth) [facility] [address] [place] [address] (Wo rk) documented as of this encounter Visit Diagnoses Diagnosis Lower back pain - Primary Lumbago documented in this encounter Care Teams Adjunct History Instructor Relationship Specialty Start Date End Date Marla Wheatley APRN PCP - General 08/20/10 05/20/15 [address] [place] [address] documented as of this encounter
--- OUTSIDE RECORDS SUMMARY | 2022-07-25 10:53 | XMS_ITS | Encounter Summary ---
:1960 Author Organization [facility] [place] [address] Care Team Providers Name Role Phone Rene, Susie JE Primary Care Provider Reason for Referral Diagnostic Test (Routine) - Closed Specialty Diagnoses / Procedures Referred By Contact Refer red To Contact Radiology Diagnoses Pain of lower extremity, unspecified laterality Sensory disturbance Sammy Cheung MD [facility] Rad Mri Procedures MRI Lumbar Spine With/WO Contrast [address] [address] Referral ID Status Reason Start Date Expiration Date Visits V isits Requested Authorized [id number] Closed Specialty 11/02/2015 11/01/2016 1 1 Service Requested Reason for Visit Diagnostic Test (Routine) - Closed Specialty Diagnoses / Procedures Referred By Contact Refer red To Contact Radiology Diagnoses Pain of lower extremity, unspecified laterality Sensory disturbance Sammy Cheung MD [facility] Rad Mri Procedures MRI Lumbar Spine With/WO Contrast [address] [address] Referral ID Status Reason Start Date Expiration Date Visits V isits Requested Authorized [id number] Closed Specialty 11/02/2015 11/01/2016 1 1 Service Requested Encounter Details Date Type Department Care Team Description 11/05/2015 Hospital Encounter MRI at [facility] Sammy Cheung, Pain of lower extremity, uns pecified laterality; [facility] [address] [place], [place] [address] [phone] Social History Tobacco Use Types Packs/Day Years [...] and Spine Center Nahid Carl PsyD (TeleHealth) [facility] er [place] [address] (Wo rk) documented as of this encounter Procedures Procedure Name Priority Date/Time Associated Diagnosis Comme nts MRI LUMBAR SPINE Routine 11/05/2015 9:33 AM Pain of lower Resu lts for this WITH/WO CONTRAST EST extremity, procedure a re in unspecified the results laterality section. Sensory disturbance documented in this encounter Results MRI Lumbar Spine With/WO Contrast (11/05/2015 9:33 AM EST) Anatomical Region Laterality Modality L-spine Magnetic Resonance Specimen (Source) Anatomical Location Collection Method / Collectio n Time Received Time / Laterality Volume Impressions 11/05/2015 9:52 AM EST IMPRESSION: 1. ??The right far lateral disc extrusio n at L4-L5 is reabsorbing. 2. ??Postsurgical changes at L5-S1 with stable moderate left-sided neural foraminal narrowing and enhancing granul ation tissue, but no new disc herniation identified at this level. Comment: The following findings are so c [...] c protrusion (32%), annular fissure (38%). Narrative 11/05/2015 9:52 AM EST EXAMINATION: MRI LUMBAR SPINE WITH/WO CONTRAST CLINICAL HISTORY: RECURRENT LUMBAR PAIN, LEG PAIN SENSORY DISTURBANCE, PRIOR LUMBAR SURGERY TECHNIQUE: MRI lumbar spine with and wit hout contrast. 7 cc Gadavist administered. ? COMPARISON: Lumbar spine MRI 08/06/2014. FINDINGS: For the purposes of numbering, there is partial lumbarization of S1 on the left. With this numbering system, mo derate disc degenerative changes at L5-S1 again identified with disc space n arrowing and endplate irregularity. Disc space heights other levels are well pres erved. Several millimeters of L4 and L5 anterolisthesis not significantly change d. There is a mild lumbar levoscoliosis. Normal appearing conus terminates at the L1 level. The regional bone marrow is normal in signal. Visualized retroperito gricelda structures are unremarkable. Findings at individual levels: T12-L1: ??Normal. L1-L2: ??No significant spinal canal or neural foraminal stenosis. L2-L3: ??There is mild disc desiccation at this level without any significant canal or neural foraminal narrowing. L3-L4: ??No significant spinal canal or neural foraminal stenosis. L4-L5: ??There is a disc bulge with a ri ght far lateral disc extrusion that is slightly smaller on the current study. T his disc material appears to contact and mildly displace the exiting right L4 ner ve root. L5-S1: ??Left-sided laminotomy defect ag ain noted. There is a disc bulge and facet arthropathy resulting in stable mo derate left and mild right-sided neural foraminal narrowing. A small superimpose d right paracentral disc extrusion appears to contact but not displace the traversing right S1 nerve root. This has a similar appearance compared to the pre vious examination. Enhancing granulation tissue surrounds the left S1 nerve root but no new disc herniations in this region identified. Procedure Note Hema Parham MD - 11/05/2015Formatti ng of this note might be different from the original. EXAMINATION: MRI LUMBAR SPINE WITH/WO CO NTRAST CLINICAL HISTORY: RECURRENT LUMBAR PAIN, LEG PAIN SENSORY DISTURBANCE, PRIOR LUMBAR SURGERY TECHNIQUE: MRI lumbar spine with and wit hout contrast. 7 cc Gadavist administered. COMPARISON: Lumbar spine MRI 08/06/2014. FINDINGS: For the purposes of numbering, there is partial lumbarization of S1 on the left. With this numbering system, mo derate disc degenerative changes at L5-S1 again identified with disc space n arrowing and endplate irregularity. Disc space heights other levels are well pres erved. Several millimeters of L4 and L5 anterolisthesis not significantly change d. There is a mild lumbar levoscoliosis. Normal appearing conus terminates at the L1 level. The regional bone marrow is normal in signal. Visualized retroperito gricelda structures are unremarkable. Findings at individual levels: T12-L1: Normal. L1-L2: No significant spinal canal or ne ural foraminal stenosis. L2-L3: There is mild disc desiccation at this level without any significant canal or neural foraminal narrowing. L3-L4: No significant spinal canal or ne ural foraminal stenosis. L4-L5: There is a disc bulge with a righ t far lateral disc extrusion that is slightly smaller on the current study. T his disc material appears to contact and mildly displace the exiting right L4 ner ve root. L5-S1: Left-sided laminotomy defect agai n noted. There is a disc bulge and facet arthropathy resulting in stable mo derate left and mild right-sided neural foraminal narrowing. A small superimpose d right paracentral disc extrusion appears to contact but not displace the traversing right S1 nerve root. This has a similar appearance compared to the pre vious examination. Enhancing granulation tissue surrounds the left S1 nerve root but no new disc herniations in this region identified. IMPRESSION IMPRESSION: 1. The right far lateral disc extrusion at L4-L5 is reabsorbing. 2. Postsurgical changes at L5-S1 with st able moderate left-sided neural foraminal narrowing and enhancing granul ation tissue, but no new disc herniation identified at this level. Comment: The following findings are so c [...] this encounter Visit Diagnoses Diagnosis Pain of lower extremity, unspecified lat erality Sensory disturbance Disturbance of skin sensation documented in this encounter Administered Medications Inactive Administered Medications - up to 3 most recent administrations Medication Order MAR Action Action Date Dose Rate Site gadobutrol (GADAVIST) 1 mMol/mL Given 11/05/2015 9:17 AM EST 7 m Ls injection 7 mL 7 mL, Intravenous, ONCE PRN, 1 dose, Starting on 11/05/15 at 0850, Until Thu11/05/15 at 0917, Per Protocol, Routine documented in this encounter Care Teams Armored Truck Driver Relationship Specialty Start Date End Date Susie López APRN PCP - General 05/21/15 06/30/19 documented as of this encounter
--- OUTSIDE RECORDS SUMMARY | 2022-07-25 10:53 | XMS_ITS | Encounter Summary ---
:1960 Author Organization [facility] [place] [address] Care Team Providers Name Role Phone Marla Wheatley JE Primary Care Provider Encounter Details Date Type Department Care Team Description 06/22/2014 Telephone Pain Management [place] [address] Social History Tobacco Use Types Packs/Day Years Used Date Former Smoker Sex Assigned at Date Recorded Not on file documented as of this encounter Miscellaneous Notes Telephone Encounter - Shanti Capellan RN - 06/22/2014 9:48 AM EDT Fely Shaw :1960 Message left: I left a message on answering machine Ms. Shaw at 9:48 AM regarding her upcoming lumbar epidural steroid injection with Dr. Jeff Karimi MD. Message included the followin. 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 2. Following instructions left in the message: - Call the Pain Clinic Nurse at for: ~Procedure instructions. Shanti Capellan RN documented in this encounter Plan of Treatment Upcoming Encounters Date Type Specialty Care Team Description 08/07/2022 TH Visit [facility] Nahid Carl PsyD (TeleHealth) [facility] [address], [place] [address] (Wo rk) documented as of this encounter Visit Diagnoses Not on filedocumented in this encounter Care Teams Industrial Sales Manager Relationship Specialty Start Date End Date Marla Wheatley APRN PCP - General 08/20/10 05/20/15 [address] [place] [address] documented as of this encounter
--- OUTSIDE RECORDS SUMMARY | 2022-07-25 10:53 | XMS_ITS | Encounter Summary ---
:1960 [place] [address] Care Team Providers Name Role Phone Marla Wheatley JE Primary Care Provider Encounter Details Date Type Department Care Team Description 05/19/2012 Follow-Up Physical Therapy at Arjun Salguero PT Lower back pain; [facility] PHYSICAL MEDICINE & [place] [address] Social History Tobacco Use Types Packs/Day Years Used Date Former Smoker Sex Assigned at Date Recorded Not on file documented as of this encounter Progress Notes Allan Salguero PT - 05/21/2012 7:44 AM EDT Physical Therapy Progress Note Total treatment time: 30 minutes Total timed code treatment: 30 minutes Current Medicare Cert Period n/a Follow up visit for patient with 1. Lower back pain (724.2U) 2. Lumbar strain (847.2L) Current goals: Therapy Short Term Goals (3 weeks) 1. Patient to be indep with home exercise program. 2. Decrease pain 5/10 or less with most activities 3. Centralize symptoms to the buttocks most of the time Therapy Pipe Foreman Goals ( 6 weeks) 1. Patient to decrease ENID to less than 15% 2. Decrease pain to 3/10 or less with most activities 3. Return to usual work and recreational activities without significant increase in symptoms. S: Patient reports that she has been feeling more radicular symptoms distal to the knee, anterolateral lower leg and dorsum of foot. States that she did several procedures wearing the lead apron. O: Therapeutic Exercise (44263) 10 minutes and Manual Therapy (79256) 20 minutes ?? Manual therapy ?? STM to the right thoracolumbar paraspinals in prone lying position ?? Grade II-III, joint mobilizations, T8-12, L1-5 ?? Therex ?? Prone and prone on elbows progression ?? Pelvic tilt, 5 seconds x 10 ?? Pelvic tilt with marching, 20 reps ?? Pelvic tilt with knee extension 20 reps ?? Bridging, 15 reps, stopped due to lower back pain A: Noting increased radicular symptoms today, but likely due to increased activity a few days ago. Patient reassured that an increase in lower back pain but as long as the symptoms are centralizing. P: Continue physical therapy to centralize radicular symptoms and improve pain, range and function. documented in this encounter Plan of Treatment Upcoming Encounters Date Type Specialty Care Team Description 08/07/2022 [facility] Nahid [facility] PsyD (TeleHealth) [facility] [address] [place], [place] [address] (Wo rk) documented as of this encounter Visit Diagnoses Diagnosis Lower back pain Lumbago Lumbar strain Sprain of lumbar region documented in this encounter Care Teams Dry Goods Clerk Relationship Specialty Start Date End Date Marla Wheatley APRN PCP - General 08/20/10 05/20/15 1 [place] [address] documented as of this encounter
--- OUTSIDE RECORDS SUMMARY | 2022-07-25 10:53 | XMS_ITS | Encounter Summary ---
:1960 Author Organization [facility] [place] [address] Care Team Providers Name Role Phone Marla Wheatley JE Primary Care Provider Encounter Details Date Type Department Care Team Description 08/14/2014 Office Visit [place] [facility] [place]ju Machado MD Back pain [facility] rive [facility] [place] [address] NEUROLOGY DEPT. [phone] [place], [place] [address] (Wo rk) Social History Tobacco Use Types Packs/Day Years Used Date Former Smoker Cigarettes Quit: 08/12/20 09 Smokeless Tobacco: Never Used Alcohol Use Standard Drinks/Week Comments Yes 0 (1 standard drink = 0.6 oz pure alcoho l) Sex Assigned at Date Recorded Not on file documented as of this encounter Progress Notes Sanju Machado MD - 08/15/2014 9:32 AM EST Discussed with residents at length as well as pt relations documented in this encounter Plan of Treatment Upcoming Encounters Date Type Specialty Care Team Description 08/07/2022 TH [facility] Nahid Carl PsyD (TeleHealth) [facility] er [address] [place] [address] (Wo rk) documented as of this encounter Visit Diagnoses Diagnosis Back pain Backache, unspecified documented in this encounter Care Teams Back Grinder Relationship Specialty Start Date End Date Marla Wheatley APRN PCP - General 08/20/10 05/20/15 1 [place] [address] documented as of this encounter
--- OUTSIDE RECORDS SUMMARY | 2022-07-25 10:53 | XMS_ITS | Encounter Summary ---
:1960 Author Organization [facility] [place] [address] Care Team Providers Name Role Phone Marla Wheatley APRN Primary Care Provider Encounter Details Date Type Department Care Team Description 02/16/2014 Orders Only MRI at [facility] Nat[facility] [place] [address] Social History Tobacco Use Types Packs/Day Years Used Date Former Smoker Sex Assigned at Date Recorded Not on file documented as of this encounter Plan of Treatment Upcoming Encounters Date Type Specialty Care Team Description 08/07/2022 TH Visit [facility] Nahid Carl PsyD (TeleHealth) [facility] [address] [place] [address] (Wo rk) documented as of this encounter Visit Diagnoses Not on filedocumented in this encounter Care Teams Metal Cleaner Relationship Specialty Start Date End Date Marla Wheatley APRN PCP - General 08/20/10 05/20/15 1 [place] [address] documented as of this encounter
--- OUTSIDE RECORDS SUMMARY | 2022-07-25 10:53 | XMS_ITS | Encounter Summary ---
:1960 Author Organization [facility] [place] [address] Care Team Providers Name Role Phone Michael López APRN Primary Care Provider Reason for Visit Reason Comments Establish Care would like to address lower back pain, and acute lower limb pain. Annual Exam Encounter Details Date Type Department Care Team Description 06/12/2015 Office Visit [facility] Michael López Scre ening; Primary Care at [facility] maintenance; [facility] Chronic low back pain [address] [place]CR[place]OLOG[place] [address] [place] [address] [phone] Social History Tobacco Use Types Packs/Day Years Used Date Former Smoker Cigarettes Quit: 08/12/20 09 Smokeless Tobacco: Never Used Alcohol Use Standard Drinks/Week Comments Yes 0 (1 standard drink = 0.6 oz pure alcoho l) Sex Assigned at Date Recorded Not on file documented as of this encounter Last Filed Vital Signs Vital Sign Reading Time Taken Comments Blood Pressure 119/68 06/12/2015 4:22 PM EDT left arm Pulse 76 06/12/2015 4:22 PM EDT Temperature 36.7 ??C (98.1 ??F) 06/12/2015 4:22 PM EDT Respiratory Rate 18 06/12/2015 4:22 PM EDT Oxygen Saturation 100% 06/12/2015 4:22 PM EDT Inhaled Oxygen Concentration - - Weight 71.5 kg (157 lb 9.6 oz) 06/12/2015 4:22 PM EDT Height 167.2 cm (5' 5.83) 06/12/2015 4:22 PM EDT Body Mass Index 25.57 06/12/2015 4:22 PM EDT documented in this encounter Patient Instructions Patient InstructionsMichael López APRN - 06/12/2015 5:09 PM EDT Lipids Do the mammo dexa 2017 documented in this encounter Progress Notes Michael López APRN - 06/12/2015 5:36 PM EDT Chief Complaint Patient presents with ??? Establish Care would like to address lower back pain, and acute lower limb pain. ??? Annual Exam Subjective Fely Shaw is a 55 y.o. female in today for to establish care Last dexa 2012-osteopenia Last mammo 2013-does annual due to fam hx ( sister age 36 with breast CA) PAP 2012-normal [facility] Lipids 2014 tchol 222, hdl 95 BACK care-Dr Swenson at [facility] is weaning down neurontin Has daily pain-takes Mobic Numbness in 4th, 5th toes and anterior aspect of leg with no droop at this time Patient Active Problem List Diagnosis Code ??? 12/11/10 ARTHROSCOPY KNEE,MENISCECTOMY SINGLE WITH SHAVING OSC /LEFT/LATERAL 719.46 ??? Left knee pain 719.46 ??? Finger sprain 842.10 ??? Lumbar strain 847.2 ??? Lower back pain 724.2 ??? Lumbosacral spondylosis without myelopathy 721.3 Current outpatient prescriptions: meloxicam (MOBIC) 7.5 mg Tablet, Take 1 tablet by mouth daily., Disp: 90 tablet, Rfl: 3; gabapentin (NEURONTIN) 300 mg Capsule, Take 3 capsules by mouth 3 times daily.(Patient taking differently: Take 300 mg by mouth 2 times daily.), Disp: 90 capsule, Rfl: 12; Calcium 500 mg Tablet, Take 1,000 mg by mouth daily., Disp: , Rfl: ; cetirizine (ZYRTEC) 10 mg tablet, , Dis p: , Rfl: VITAMIN E ACETATE (VITAMIN E ORAL), , Disp: , Rfl: ; Black Cohosh 40 mg Tab, , Disp: , Rfl: ; EPINEPHrine (EPIPEN) 0.3 mg/0.3 mL (1:1,000) Auto-Injector, Inject 0.3 mLs into the muscle once as needed.,Disp: 2 each, Rfl: 1 Allergies Allergen Reactions ??? Honey Bee Venom Protein Anaphylaxis ??? Wasp Venom Anaphylaxis ??? White-Faced Hornet Venom Anaphylaxis ??? Yellow Hornet Venom Anaphylaxis ??? Yellow Jacket Venom Anaphylaxis ??? Cis Free Text Allergy food dyes - Hives( gel type medication- bright red and yellow) ??? Nexium [Esomeprazole Magnesium] Other (See Comments) Light headed ROS: Has not needed to use epi pen in > one year (ever?) Otherwise-hot flashes-tolerable LMP age 50 Walking-can but has to be careful. Dog is Danny, is Joshua Objective Filed Vitals: 06/12/15 1622 BP: 119/68 Pulse: 76 Temp: 36.7 ??C (98.1 ??F) Resp: 18 Alert, articaulte, NAD HEENT benign Neck supple, nodes neg, thyroid benign Cor RR - MGR Lungs BCTA Breasts, non tender, no abnty found abd benign Skin freckeld on face, chest, back DTR 1+ L patella, 2+ R Assessment 1. Screening -go do your mammo! - Lipid panel (fasting); Future dexa 2016 2.) back Issues-Mobic refilled-will follow with her neurosurgeon David and is weaning her neurontin Return in about 1 year (around 06/12/2016). MICHAEL LÓPEZ APRN documented in this encounter Plan of Treatment Upcoming Encounters Date Type Specialty Care Team Description 08/07/2022 TH [facility] Nahid Carl PsyD (TeleHealth) [facility] [address] [place], [place] [address] (Wo rk) documented as of this encounter Results (ABNORMAL) Lipid panel (fasting) (06/15/2015 6:47 AM EDT) P athologist Signature Chol, Total 240 (H) <=199 CERNER mg/dL MILLENNIUM Comment: Recommendations of the NCEP Adult Treatm ent Panel for the following risk cutoff thresholds for the [place] populatio n: Desirable: <200 mg/dL Borderline High: 200-239 mg/dL High: > or = 240 mg/dL Triglycerides 64 <=149 mg/dL CERNER MILLENN IUM Comment: Reference Range: Normal triglycerides: ??<150 mg/dL Borderline high: ??150-199 mg/dL High: ??200-499 mg/dL Very high: ??>qy=179 mg/dL RHETT 2001; 285(19):0903-8774 HDL 85 >=40 mg/dL CERNER MILLENNIUM Comment: Reference range: ??Low HDL: ?? < 40 mg/dL ??Normal: ?40-60 mg/dL ??Desirable: > 60 mg/dL RHETT 2001; 285(19):0717-6397 LDL Cholesterol 142 (H) <=99 mg/dL AISHA MIESHA NIUM Comment: Reference range: ?? Optimal: ?<100 mg/dL ?? Near Optimal/Above Optimal: ?? 100-1 29 mg/dL ?? Borderline high: ?130-159 mg/dL ?? High: ? 160-189 mg/dL ?? Very high: ?>bu=607 mg/dL RHETT 2001: 285(19):2596-4507 Chol/HDL Ratio 2.8 ratio CERNER MILLENNI UM Comment: A Cholesterol to HDL ratio below 4:1 is desirable. ??Studies suggest that increased CAD risk occurs at ratios abov e 5 for females and above 6 for men. ? [place] [employer] Association ??(htt p://www.americanheart.org) ? Radha Int Med, 1994; 121:641 ? AM J Med, 1998; 105(1A):48S Specimen Anatomical Collection Method Collection Time Receive d Time (Source) Location / / Volume Laterality Blood specimen 06/15/2015 6:47 AM 015 6:50 (specimen) EDT AM EDT Resulting Agency Comment Spec In Lab Janett Valle MD CHEMISTRY ORDERABLES Performing Organization Address City/State/ZIP Code Phon e Number [address] [facility] documented in this encounter Visit Diagnoses Diagnosis Screening Screening for unspecified condition Health care maintenance Unspecified general medical examination Chronic low back pain Lumbago documented in this encounter Care Teams Acquisition Lead Relationship Specialty Start Date End Date Michael López APRN PCP - General 05/21/15 06/30/19 documented as of this encounter
--- OUTSIDE RECORDS SUMMARY | 2022-07-25 10:53 | XMS_ITS | Encounter Summary ---
:1960 Author Organization [facility] [place] [address] Care Team Providers Name Role Phone Marla Wheatley MANAGER OF CUSTOMER BILLING Primary Care Provider Reason for Visit Reason Comments Back Pain Encounter Details Date Type Department Care Team Description 01/13/2014 Office Visit Occupational Medicine Ronnie Hdez B ack pain, sacroiliac at [facility] MANAGER OF CUSTOMER BILLING (Primary Dx) [facility] [place] [address] OCCUPATIONAL [phone] [place], [place] [address] Social History Tobacco Use Types Packs/Day Years Used Date Former Smoker Sex Assigned at Date Recorded Not on file documented as of this encounter Last Filed Vital Signs Vital Sign Reading Time Taken Comments Blood Pressure 134/67 01/13/2014 3:35 PM EDT Pulse 75 01/13/2014 3:35 PM EDT Temperature - - Respiratory Rate - - Oxygen Saturation - - Inhaled Oxygen Concentration - - Weight - - Height - - Body Mass Index - - documented in this encounter Progress Notes Ronnie Hdez APRN - 01/17/2014 11:17 AM EDT S: TAQUERIA presents to for evaluation of R SI tightness since 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 States that she felt a pull in the R lower back, and wanted to be checked out. It is important to note that TAQUERIA has been moving her household over the past few days, with a great deal of heavy lifting and carrying in the process. Understands that this is likely highly contributory to her back stiffness. No bowel or bladder issues reported. Feels able to safely perform regularduty. No other complaints. O: Upon presentation, TAQUERIA appears well and in no acute distress. Rises easily from a seated position and ambulates w a nonantalgic gait. Upon examination of the lower back, there is no swelling, deformation or discoloration of the overlying skin. Palpation over the R posterior superior iliac spine identifies the location of the tightness described by the EE, but no pain is elicited. EE demonstrates near-full ROM at the waist w forward flexion reproducing tightness exactly. Negative SLRs. Otherwise unremarkable focused exam. A: R SI tightness P: First aid visit Discussed recent moving of household goods--Avoid aggravating activities while tightness is present Comfort measures incl NSAIDs/heat/ice/stretches as discussed Regular duty OK--Contact OM if specific restrictions are needed FU PRN only Completed WC PW indicating Unclear causality EE understands and agrees w plan of care documented in this encounter Plan of Treatment Upcoming Encounters Date Type Specialty Care Team Description 08/07/2022 TH [facility] Nahid Carl PsyD (TeleHealth) [address] [facility] [address] [place], [place] [address] (Wo rk) documented as of this encounter Visit Diagnoses Diagnosis Back pain, sacroiliac - Primary Disorders of sacrum documented in this encounter Care Teams Nanotechnologist Relationship Specialty Start Date End Date Marla Wheatley APRN PCP - General 08/20/10 05/20/15 1 [place] [address] documented as of this encounter
--- OUTSIDE RECORDS SUMMARY | 2022-07-25 10:54 | XMS_ITS | Encounter Summary ---
:1960 Author Organization [facility] [address] Care Team Providers Name Role Phone Marla Wheatley APRN Primary Care Provider Encounter Details Date Type Department Care Team Description 10/18/2010 Follow-Up Occupational Medicin e at [facility] Ronnie Hdez APRN [facility] [place] [address] OCCUPATIONAL MEDICINE [phone] [place], [place] [address] (Wo rk) Social History Tobacco Use Types Packs/Day Years Used Date Never Assessed Sex Assigned at Date Recorded Not on file documented as of this encounter Plan of Treatment Upcoming Encounters Date Type Specialty Care Team Description 08/07/2022 TH Visit [facility] Nahid Carl PsyD (TeleHealth) [facility] [address] [place], [place] [address] (Wo rk) documented as of this encounter Visit Diagnoses Not on filedocumented in this encounter Care Teams Boat Painter Relationship Specialty Start Date End Date Marla Wheatley APRN PCP - General 08/20/10 05/20/15 1 [place] [address] documented as of this encounter
--- OUTSIDE RECORDS SUMMARY | 2022-07-25 10:54 | XMS_ITS | Encounter Summary ---
:1960 Author Organization [facility] [place] [address] Care Team Providers Name Role Phone Marla Wheatley APRN Primary Care Provider Encounter Details Date Type Department Care Team Description 10/30/2010 Follow-Up Occupational Medicin e at [facility] [place] Ronnie Hdez APRN [facility] [place] [address] OCCUPATIONAL MEDICINE [phone] [place], [place] [address] (Wo rk) Social History Tobacco Use Types Packs/Day Years Used Date Never Assessed Sex Assigned at Date Recorded Not on file documented as of this encounter Plan of Treatment Upcoming Encounters Date Type Specialty Care Team Description 08/07/2022 TH Visit [facility] Nahid Carl PsyD (TeleHealth) [facility] [address] [place], [place] [address] (Wo rk) documented as of this encounter Visit Diagnoses Not on filedocumented in this encounter Care Teams Prosthetics Technician Relationship Specialty Start Date End Date Marla Wheatley APRN PCP - General 08/20/10 05/20/15 1 [place] [address] documented as of this encounter
--- OUTSIDE RECORDS SUMMARY | 2022-07-25 10:54 | XMS_ITS | Encounter Summary ---
:1960 Author Organization [facility] Address [facility] [address] Care Team Providers Name Role Phone Marla Wheatley JE Primary Care Provider Reason for Visit Reason Comments Left Knee Pain Encounter Details Date Type Department Care Team Description 01/08/2011 Follow-Up Orthopaedics at [facility] Apolinar Pittman, 12/11/10 ARTHROSCOPY [facility] Nahid vincent MD KNEE,[place] [address] [facility] SINGLE WITH SHAVING [phone] DR ERVIN /LEFT/LATERAL ORTHOPAEDIC (Primary Dx) SURGERY [place], [place] [address] Social History Tobacco Use Types Packs/Day Years Used Date Never Assessed Sex Assigned at Date Recorded Not on file documented as of this encounter Progress Notes Apolinar Pittman MD - 01/08/2011 1:27 PM EDT Subjective: Patient ID: Fely Shaw is a 50 y.o. female. HPI Doing better after meniscectomy Left knee. PT has helped. No fevers or chills. ROS Objective: Physical Exam Musculoskeletal: Left knee: Medial joint line tenderness noted. Left Knee Exam Swelling: Mild Effusion: No Tenderness The patient is experiencing tenderness in the medial joint line and medial hamstring. Range of Motion Extension: 0 Flexion: 90 Muscle Strength Normal Comments: Portals are mildly inflamed. No calf tenderness. Neurologic Exam Assessment and Plan: Still requiring PT. 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 RTC 4 weeks no xrays. documented in this encounter Plan of Treatment Upcoming Encounters Date Type Specialty Care Team Description 08/07/2022 TH Visit [facility] Nahid Carl, PsLuis Enrique (TeleHealth) [facility] [address] [place], [place] [address] (Wo rk) documented as of this encounter Visit Diagnoses Diagnosis 12/11/10 ARTHROSCOPY KNEE,MENISCECTOMY SI NGLE WITH SHAVING OSC /LEFT/LATERAL - Primary Pain in joint, lower leg documented in this encounter Care Teams Graduate Civil Engineer Relationship Specialty Start Date End Date Marla Wheatley, JE PCP - General 08/20/10 05/20/15 1 [place] [address] documented as of this encounter
--- OUTSIDE RECORDS SUMMARY | 2022-07-25 10:54 | XMS_ITS | Encounter Summary ---
:1960 Author Organization [facility] Address [facility] [place] [address] Care Team Providers Name Role Phone Marla Wheatley JE Primary Care Provider Reason for Visit Reason Comments Knee Pain Encounter Details Date Type Department Care Team Description 01/02/2011 Follow-Up Physical Therapy at Josefina Vargas, PT Knee pain (Primary Dx) [facility] [address] PHYSICAL MED[place] & [place] [address] REHABILITAT [phone] [place] [address] Social History Tobacco Use Types Packs/Day Years Used Date Never Assessed Sex Assigned at Date Recorded Not on file documented as of this encounter Progress Notes Josefina Vargas, PT - 01/02/2011 3:25 PM EDT Physical Therapy Progress Note Total treatment time: 14:15-14:45 minutes Total timed code treatment: 30 minutes 1 there ex, 1man Follow up visit for patient with left knee pain s/p meniscectomy S: Pt reports she is still sore after working 6 hours. She feels she can walk better and it is less swollen. 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 O: Bike 0 resistance 5 min, heel raises x20, calf stretch 30 sec, heel raises x15, 6 step up x10, rocker board multi direction minisquats x10, single leg balance on Airex, STM to posterior knee, ice A: Tolerated treatment well but she was fatigued especially because she worked 6 hours already. She does have improved gait P: cont physical therapy for strength, balance, proprioception, gait documented in this encounter Plan of Treatment Upcoming Encounters Date Type Specialty Care Team Description 08/07/2022 TH Visit [facility] Nahid Carl PsyD (TeleHealth) [facility] [address] [place], [place] [address] (Wo rk) documented as of this encounter Visit Diagnoses Diagnosis Knee pain - Primary Pain in joint, lower leg documented in this encounter Care Teams Heater Engineer Helper Relationship Specialty Start Date End Date Marla Wheatley APRN PCP - General 08/20/10 05/20/15 1 [place] [address] documented as of this encounter
--- OUTSIDE RECORDS SUMMARY | 2022-07-25 10:54 | XMS_ITS | Encounter Summary ---
:1960 Author Organization [facility] [place] [address] Care Team Providers Name Role Phone Marla Wheatley Rodolfo WOOTEN Primary Care Provider Reason for Referral Physical Therapy (Routine) - Closed Specialty Diagnoses / Procedures Referred By Contact Refer red To Contact Physical Therapy Diagnoses Lumbar strain SI (sacroiliac) pain Ronnie Hdez APRN [facility] Pt Rehab [facility] [place] [address] [place] [address] Fax: Referral ID Status Reason Start Date Expiration Date Visits V isits Requested Authorized [id number] Closed Evaluate and 04/30/2012 10/27/2012 1 1 Treat Reason for Visit Reason Comments Back Pain Encounter Details Date Type Department Care Team Description 04/30/2012 Follow-Up Occupational Medicine at Ronnie Hdez , Lumbar strain (Primary Dx); [facility] DIRECT[facility] SI (sacroiliac) [place] [address] OCCUPATIONAL MEDICINE [place], [place] [address] Social History Tobacco Use Types Packs/Day Years Used Date Former Smoker Sex Assigned at Date Recorded Not on file documented as of this encounter Last Filed Vital Signs Vital Sign Reading Time Taken Comments Blood Pressure 115/66 04/30/2012 7:11 AM EDT Pulse 74 04/30/2012 7:11 AM EDT Temperature - - Respiratory Rate 16 04/30/2012 7:11 AM EDT Oxygen Saturation - - Inhaled Oxygen Concentration - - Weight - - Height - - Body Mass Index - - documented in this encounter Progress Notes Ronnie Hdez, WELLNESS DIRECTOR - 05/11/2012 10:45 AM EDT S: TAQUERIA presents to for FU of lumbar pain, R > L, with R posterolateral thigh pain since rollinga 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 Reports that although the back is loosening up, she is still having significant discomfort on the R side of the lower back with intermittent R SI sx persisting. Has been working as much as possible within her restrictions, noting that her sx still seem to beworse at the end of the day. No previous serious back injury, and no other injury from this incident. Does not feel able to safely continue regular duty, and we concur, given her presentation today. O: Upon presentation, EE appears well but in mild distress. Sits more comfortably in the exam room chair. Rises less awkwardly from seated position and ambulates with a nonantalgic gait. Upon examination of the lower back, there is again no swelling, deformation or discoloration of the overlying skin. Palpation over the R lower back still elicits some discomfort, w no L sided sx voiced. No spasm is appreciated in the lumbar musculature. Palpation over the R buttock is c d still operator, with some reproduction of R posterolateral thigh pain voiced. Negative SLRs, with 2+ DTRs in both LEs. Normal sensation and brisk capillary refill distally in both LEs. EE demonstrates limited forward flexion (30 degrees) at the waist 2/2 R lumbar pain and stiffness. Focused exam otherwise unremarkable. A: Lumbar strain--R > L, w R SI sx --Persistent P: Reassured EE regarding anticipated trajectory of recovery over next several weeks, emphasizing need to stay within recommended restrictions Given persistent sx, we will order course of PT to speed healing and maintain ROM and strength during healing Continue NSAIDs adding Tylenol per label Heat/ice as discussed w gentle stretches as tolerated We will maintain protective work restrictions of: 15 lb max/10 lb frequent lift/carry/push/pull No bend/kneel/squat No ladder climbing Rotate stand/walk/sit for comfort No work above shoulder level No boosting patients FU w OM in two weeks or before if needed EE understands and agrees w plan of care WC PW completed documented in this encounter Plan of Treatment Upcoming Encounters Date Type Specialty Care Team Description 08/07/2022 [facility] Carl, Mary (TeleHealth) [facility] [address], [place] [address] (Wo rk) Scheduled Referrals Name Type Priority Associated Diagnoses Order S chedule REFERRAL TO Outpatient Referral Routine Lumbar strai n Ordered: PHYSICAL THERAPY SI (sacroiliac) pain 11/2011 documented as of this encounter Visit Diagnoses Diagnosis Lumbar strain - Primary Sprain of lumbar region SI (sacroiliac) pain Disorders of sacrum documented in this encounter Care Teams Net Repairer Relationship Specialty Start Date End Date Marla Wheatley APRN PCP - General 08/20/10 05/20/15 1 [place] [address] documented as of this encounter
--- OUTSIDE RECORDS SUMMARY | 2022-07-25 10:54 | XMS_ITS | Encounter Summary ---
:1960 Author Organization [facility] [place] [address] Care Team Providers Name Role Phone Marla Wheatley APRN Primary Care Provider Encounter Details Date Type Department Care Team Description 11/15/2010 Follow-Up Physical Therapy at [facility] Sheila Govea PTA [facility] Nahid vincent [facility] [place] [address] PHYSICAL MEDICINE & [phone] [place] [address] Social History Tobacco Use Types Packs/Day Years Used Date Never Assessed Sex Assigned at Date Recorded Not on file documented as of this encounter Plan of Treatment Upcoming Encounters Date Type Specialty Care Team Description 08/07/2022 TH [facility] Nahid Carl PsyD (TeleHealth) [facility] [address] [place] [address] (Wo rk) documented as of this encounter Visit Diagnoses Not on filedocumented in this encounter Care Teams Hopper Feeder Relationship Specialty Start Date End Date Marla Wheatley APRN PCP - General 08/20/10 05/20/15 1 [place] [address] documented as of this encounter
--- OUTSIDE RECORDS SUMMARY | 2022-07-25 10:54 | XMS_ITS | Encounter Summary ---
:1960 Author Organization [facility] Address [facility] [place] [address] Care Team Providers Name Role Phone Marla Wheatley JE Primary Care Provider Reason for Visit Reason Comments Left Knee Pain Encounter Details Date Type Department Care Team Description 01/31/2011 Follow-Up Physical Therapy at Josefina Vargas, PT Left knee pain [facility] (Primary Dx) [facility] DR Mijares PHYSICAL MED[place] & [place] [address] REHABILITAT [phone] [place] [address] Social History Tobacco Use Types Packs/Day Years Used Date Never Assessed Sex Assigned at Date Recorded Not on file documented as of this encounter Progress Notes Josefina Vargas PT - 01/31/2011 10:06 AM EDT Physical Therapy Progress Note Total treatment time: 09:30-`10:00 minutes Total timed code treatment: 30 minutes 2 therex Follow up visit for patient with left knee pain s/p meniscectomy S: Pt reports she is sore from working 3 nights in a row. She has been able to do the bike limited by time and the treadmill made her sore after 4 min. She was sore after last session O: Upright Bike 0 resistance 5 min, heel raises x20, calf stretch 30 sec, 6 step x15, step up on Airex 8 x10 Total gym L=10 x20,airex balance beam x6 retro walking L=4 x5 and side walkingL= x3 hip abd with green on Airex, Bosu squats x15, SAQ x15 #2.5, ice A: Tolerated treatment well P: cont physical therapy for strength, balance, proprioception, gait documented in this encounter Plan of Treatment Upcoming Encounters Date Type Specialty Care Team Description 08/07/2022 TH [facility] Nahid Carl PsyD (TeleHealth) [facility] [address] [place], [place] [address] (Wo rk) documented as of this encounter Visit Diagnoses Diagnosis Left knee pain - Primary Pain in joint, lower leg documented in this encounter Care Teams Workgroup Leader Relationship Specialty Start Date End Date Marla Wheatley APRN PCP - General 08/20/10 05/20/15 1 [place] [address] documented as of this encounter
--- OUTSIDE RECORDS SUMMARY | 2022-07-25 10:54 | XMS_ITS | Encounter Summary ---
:1960 Author Organization [facility] [place] [address] Care Team Providers Name Role Phone Marla Wheatley JE Primary Care Provider Encounter Details Date Type Department Care Team Description 04/05/2012 Hospital Encounter Mammography at [facility] Abnormal mammogram, [facility] [place] [address] Social History Tobacco Use Types Packs/Day Years Used Date Never Assessed Sex Assigned at Date Recorded Not on file documented as of this encounter Medications at Time of Discharge Medication Sig Dispensed Refills Start Date End Date cetirizine (ZYRTEC) 10 mg tablet 0 08/26/2016 multivitamin (THERAGRAN) tablet 0 11/2706/22/2014 Calcium 500 mg Tab 0 12/18/20102013 ERGOCALCIFEROL, VITAMIN D2, (VITAMIN D 0 12/18/2010 01/13/2014 ORAL) ibuprofen (ADVIL;MOTRIN) 400 mg tablet 0 12/18/2010 06/23/2014 documented as of this encounter Plan of Treatment Upcoming Encounters Date Type Specialty Care Team Description 08/07/2022 TH [facility] Nahid Carl PsyD (TeleHealth) [facility] [place] [address] (Wo rk) documented as of this encounter Procedures Procedure Name Priority Date/Time Associated Diagnosis Comme nts MAMMO BREAST US Routine 04/05/2012 3:00 PM Abnormal mammogram, Results for this LIMITED EDT unspecified procedure are i n the results section. documented in this encounter Results Mammo breast US unilateral bilateral (04/05/2012 3:00 PM EDT) Anatomical Region Laterality Modality Breast N/A Mammography Specimen (Source) Anatomical Collection Method Collection Time Re ceived Time Location / / Volume Laterality 04/05/2012 3:00 PM EDT Impressions 04/06/2012 11:01 AM EDT IMPRESSION: ?? BENIGN Left mammogram and ultrasound (BI RADS Category 2). Routine screening mammography recommended with the frequen cy dependent upon the patient's age and breast cancer risk factors. Narrative 04/06/2012 11:01 AM EDT DIAGNOSTIC LEFT MAMMOGRAPHY AND ULTRASOUND ON 04/05/12: ?? CLINICAL INDICATION: Well-defined mass q uestioned on recent screening mammography. ? TECHNIQUE: ML, focal compression CC, foc al compression MLO and rolled views of the Left breast obtained with direct dig ital capture. Ultrasound was targeted to two areas of mammographic concern. ?? FINDINGS: Additional mammography confirm s an approximately 1cm oval mass with partly circumscribed and partly obscured margins in the inferior Left breast and a subcentimeter nodular asymmetry in the central lateral Left breast. Ultrasound targeted to the inferior mas s shows a corresponding 7mm simple cyst located at 0700, 5cm from the nipple. Ul trasound targeted to the mass in the lateral Left beast demonstrates two goldie cent simple cysts at 0500, 5cm from the nipple which in aggregate measure 7mm. ?? Procedure Note Rogelio Dodson MD - 04/06/2012Format ting of this note might be different from the original. DIAGNOSTIC LEFT MAMMOGRAPHY AND ULTRASOU ND ON 04/05/12: CLINICAL INDICATION: Well-defined mass q uestioned on recent screening mammography. TECHNIQUE: ML, focal compression CC, foc al compression MLO and rolled views of the Left breast obtained with direct dig ital capture. Ultrasound was targeted to two areas of mammographic concern. FINDINGS: Additional mammography confirm s an approximately 1cm oval mass with partly circumscribed and partly obscured margins in the inferior Left breast and a subcentimeter nodular asymmetry in the central lateral Left breast. Ultrasound targeted to the inferior mas s shows a corresponding 7mm simple cyst located at 0700, 5cm from the nipple. Ul trasound targeted to the mass in the lateral Left beast demonstrates two goldie cent simple cysts at 0500, 5cm from the nipple which in aggregate measure 7mm. IMPRESSION IMPRESSION: BENIGN Left mammogram and ultrasound (BI RADS Category 2). Routine screening mammography recommended with the frequen cy dependent upon the patient's age and breast cancer risk factors. Savi Paez MD IMG MAMMO ORDERABLES documented in this encounter Visit Diagnoses Diagnosis Abnormal mammogram, unspecified documented in this encounter Care Teams Clinical Writer Relationship Specialty Start Date End Date Marla Wheatley, EJ PCP - General 08/20/10 05/20/15 1 [place] [address] documented as of this encounter
--- OUTSIDE RECORDS SUMMARY | 2022-07-25 10:54 | XMS_ITS | Encounter Summary ---
:1960 Author Organization [facility] [place] [address] Care Team Providers Name Role Phone Marla Wheatley APRN Primary Care Provider Encounter Details Date Type Department Care Team Description 12/02/2010 Office Visit Orthopaedics at [facility] Paxton Nieto, [facility] [place] [address] [facility] [phone] ORTHOPAEDIC SURG [place], [place] [address] (Wo rk) Social History Tobacco Use Types Packs/Day Years Used Date Never Assessed Sex Assigned at Date Recorded Not on file documented as of this encounter Plan of Treatment Upcoming Encounters Date Type Specialty Care Team Description 08/07/2022 TH [facility] Nahid Carl PsyD (TeleHealth) [facility] er [place], [place] [address] (Wo rk) documented as of this encounter Visit Diagnoses Not on filedocumented in this encounter Care Teams Product Development Coordinator Relationship Specialty Start Date End Date Marla Wheatley APRN PCP - General 08/20/10 05/20/15 1 [place] [address] documented as of this encounter
--- OUTSIDE RECORDS SUMMARY | 2022-07-25 10:54 | XMS_ITS | Encounter Summary ---
:1960 Author Organization [facility] [place] [address] Care Team Providers Name Role Phone Marla Wheatley JE Primary Care Provider Encounter Details Date Type Department Care Team Description 04/05/2012 Hospital Encounter Mammography at [facility] E[place]MAN Abnormal mammogram, [facility] Wesly Landin II, MD [address] [place] [address] [place] [phone] Social History Tobacco Use Types Packs/Day Years Used Date Never Assessed Sex Assigned at Date Recorded Not on file documented as of this encounter Medications at Time of Discharge Medication Sig Dispensed Refills Start Date End Date cetirizine (ZYRTEC) 10 mg tablet 0 08/26/2016 multivitamin (THERAGRAN) tablet 0 /11/201006/22/2014 Calcium 500 mg Tab 0 12/18/20102013 ERGOCALCIFEROL, VITAMIN D2, (VITAMIN D 0 12/18/2010 01/13/2014 ORAL) ibuprofen (ADVIL;MOTRIN) 400 mg tablet 0 12/18/2010 06/23/2014 documented as of this encounter Plan of Treatment Upcoming Encounters Date Type Specialty Care Team Description 08/07/2022 TH [facility] Nahid Carl PsyD (TeleHealth) [facility] er [address] [place] [address] (Wo rk) documented as of this encounter Procedures Procedure Name Priority Date/Time Associated Diagnosis Comme nts MAMMO CALL BACK Routine 04/05/2012 3:00 PM Abnormal mammogram, Results for this DIAGNOSTIC EXTRA EDT unspecified procedure a re in VIEW UNILATERAL the results section. documented in this encounter Results Mammo call back diagnostic extra view unilateral (04/05/2012 3:00 PM EDT) Anatomical Region Laterality [...] unspecified documented in this encounter Care Teams Substation Supervisor Relationship Specialty Start Date End Date Marla Wheatley APRN PCP - General 08/20/10 05/20/15 1 [place] [address] documented as of this encounter
--- OUTSIDE RECORDS SUMMARY | 2022-07-25 10:54 | XMS_ITS | Encounter Summary ---
:1960 Author Organization [facility] [place] [address] Care Team Providers Name Role Phone Marla Wheatley APRN Primary Care Provider Encounter Details Date Type Department Care Team Description 05/07/2012 Office Visit Physical Therapy at Arjun Salguero PT PHYSICAL MEDICINE & REHABILITAT Lower back pain; [facility] Marla Wheatley, COMMISSARY CLERK [address] [place] [address] Lumbar strain [facility] Ronnie Hdez APRN [facility] [place] [address] Gilbert Knutson MD [facility] [place] [place] [address] [place] [id number] Social History Tobacco Use Types Packs/Day Years Used Date Former Smoker Sex Assigned at Date Recorded Not on file documented as of this encounter Progress Notes Allan Salguero PT - 05/07/2012 2:58 PM EDT Images from the original note were not included. PHYSICAL THERAPY INITIAL EXAMINATION Date of Exam/First Treatment: 05/07/2012 Date of onset: 04/21/12 Referring Provider: Marla Wheatley Diagnosis: 1. Lower back pain (724.2U) 2. Lumbar strain (847.2L) Medicare Certification period: n/a CURRENT HISTORY: Fely Shaw is a 51 y.o. female referred to physical therapy for treatment of back and right radicular pain. Patient was moving a patient that weighted over 400# and felt an immediate pain in her back. The pain is now radiating down the buttocks and posterior thigh and she also reports a cramping feeling in her calf and right heel. The past few days and nights have been the worst her symptoms have felt, but today she is doing well. 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 Prior level of Function: independent and painfree Functional Limitations: walking, standing, sitting, lifting, bending CLINICAL FINDINGS: Posture: Lordosis decreased and Scolosis Gait: wnl's Range of motion: Range of motion (%) lumbar flexion 50% extension 75% SB right 75% SB left 100% rotation right 75% rotation left 75% hip (degrees) flexion 100 pain right abduction 35 IR/ER 20/70 pain Repeated Movements: Repeated flexion in standing: increased symptoms down the right LE (posterior thigh) Repeated extension in standing: increased symptoms in the lumbar region and buttock (both right and left) Strength ( /5) Hip flexion (L2) Knee Ext (L3) Knee Flexion (S2) Ankle DF (L4) Hallux Ext (L5) Ankle Ev. (L5) Ankle PF (S1) Right 4+ 4+ 4+ 4+ 4+ 4+ 4+ Left 4+ 4+ 4+ 4+ 4+ 4+ 4+ Patient is able to: Heel Walk: yes Toe Walk: yes Single Leg Squat: RIGHT: yes LEFT: yes Single Leg Heel Raise: RIGHT: yes LEFT: yes Flexibility: decreased: hamstring Special Tests: Slump - SLR + Prone instability test not performed CALVIN - SI compression - SI distraction - Sacral thrust - Thigh thrust - Maria Teresa not performed Allan not performed Lumbar spring + L4 and L5 Joint mobility: segmental mobility at lumbar spine: Hypomobile; segmental mobility at the thoracic spine: Hypomobile Palpation: Tenderness with palpation at right thoracolumbar paraspinals Sensation: Touch: normal Reflexes: Right Left Patella 2/4 2/4 Achilles 2/4 1/4 Oswestry: 15/50 correlating to a 30 % disability per self report secondary to back pain. CLINICAL EVALUATION AND DIAGNOSIS: These findings are consistent with low back pain associated with S1 radiculopathy without focal neurological deficits. Expect with skilled physical therapy interventions patient will be able to return to prior level of function. GOALS: Therapy Short Term Goals (3 weeks) 1. Patient to be indep with home exercise program. 2. Decrease pain 5/10 or less with most activities 3. Centralize symptoms to the buttocks most of the time Therapy Contract Clerk Goals ( 6 weeks) 1. Patient to decrease ENID to less than 15% 2. Decrease pain to 3/10 or less with most activities 3. Return to usual work and recreational activities without significant increase in symptoms. INITIAL TREATMENT INCLUDED: Examination and instruction in a home exercise program (refer to chart copy or to scan doc in chart review for details), patient education regarding physical therapy plan of care, anatomy and diagnosis. Discussed the centralization/peripheralization phenomenon with the patient and the importance of centralizing the symptoms out of the lower extremity. Also discussed that the pain may become temporarily more painful in the lower back, but if the symptoms are centralizing this is still a positive sign for improvement. Therex (15 minutes) as follows: (no stabilization exercises yet) PLAN: Frequency and duration: 1 x per week for 6 weeks Treatment plan: Manual Techniques, Soft tissue mobilization, Stretching, Joint mobilization, Therapeutic exercise, Modalities (PRN to control pain and inflammation) Electrical stimulation, Patient/Family education, Body Mechanics, Posture and Home Exercise Program Total Treatment time: 45 min Total Timed Coded Treatment: 15 min The plan has been discussed with the patient and Fely Shaw has agreed with the planned treatment. ALLAN SALGUERO, PT documented in this encounter Miscellaneous Notes Miscellaneous - Andrew, Cv/Cvn Cv Tsc System Operator - 07/20/2012 11:08 PM EDT documented in this encounter Plan of Treatment Upcoming Encounters Date Type Specialty Care Team Description 08/07/2022 TH Visit [facility] Nahid Carl PsyD (TeleHealth) [facility] [address] [place], [place] [address] (Wo rk) documented as of this encounter Visit Diagnoses Diagnosis Lower back pain Lumbago Lumbar strain Sprain of lumbar region documented in this encounter Care Teams On Air Talent Relationship Specialty Start Date End Date Marla Wheatley APRN PCP - General 08/20/10 05/20/15 1 [place] [address] documented as of this encounter
--- OUTSIDE RECORDS SUMMARY | 2022-07-25 10:54 | XMS_ITS | Encounter Summary ---
:1960 Author Organization [facility] Address [address] [place] [address] Care Team Providers Name Role Phone Marla Wheatley JE Primary Care Provider Encounter Details Date Type Department Care Team Description 04/01/2012 Hospital Encounter Mammography at [facility], [facility] Wesly Riley II, MD [address] [place] [id number] [place] [address] Social History Tobacco Use Types Packs/Day [...] PsyD (TeleHealth) [facility] [address] [place] [address] (Wo rk) documented as of this encounter Procedures Procedure Name Priority Date/Time Associated Diagnosis Comme nts MAMMO SCREENING CAD Routine 04/01/2012 8:21 AM Re sults for this BILATERAL EDT procedure are i n the results section. documented in this encounter Results MAMMO DIGITAL BILATERAL SCREENING WITH CAD (04/01/2012 8:21 AM EDT) Anatomical Region Laterality Modality Breast Bilateral Mammography Specimen (Source) Anatomical Collection Method Collection Time Re ceived Time Location / / Volume Laterality 04/01/2012 8:21 AM EDT Narrative 04/02/2012 2:07 PM EDT REASON FOR EXAM: Screening ?? TECHNIQUE: Cranio-caudal (CC) and mediol ateral oblique (MLO) views of the both breasts obtained with direct digital cap ture. The exam was evaluated by CAD Version 8.3.17. ?? LEFT BREAST MAMMOGRAPHY ?? This is an indeterminate (ACR Category 0 ) mammogram of the LEFT breast. There is a well-defined mass (possible cyst) i n the lower, outer Left breast, requiring additional imaging. ? RIGHT BREAST MAMMOGRAPHY ?? This is a negative mammogram (ACR Catego ry 1). There is a stable fibroglandular pattern without significant change as co mpared to prior studies. There is no mammographic evidence of cancer. ? The breasts are heterogeneously dense wh ich may limit mammographic sensitivity for the detection of malignancy. ? CONCLUSION ?? ASSESSMENT IS INCOMPLETE: Additional patel ging recommended (ACR Category 0) of the Left breast. The Breast Imaging Cent er will contact the patient to schedule additional imaging. ?? The contralateral breast is NEGATIVE (AC R Category 1). Routine screening mammography is recommended of the Right breast with the frequency dependent on the patient's age and breast cancer risk factors. Procedure Note Savi [place] MD - 2011 REASON FOR EXAM: Screening TECHNIQUE: Cranio-caudal (CC) and mediol ateral oblique (MLO) views of the both breasts obtained with direct digital cap ture. The exam was evaluated by CAD Version 8.3.17. LEFT BREAST MAMMOGRAPHY This is an indeterminate (ACR Category 0 ) mammogram of the LEFT breast. There is a well-defined mass (possible cyst) i n the lower, outer Left breast, requiring additional imaging. RIGHT BREAST MAMMOGRAPHY This is a negative mammogram (ACR Catego ry 1). There is a stable fibroglandular pattern without significant change as co mpared to prior studies. There is no mammographic evidence of cancer. The breasts are heterogeneously dense wh ich may limit mammographic sensitivity for the detection of malignancy. CONCLUSION ASSESSMENT IS INCOMPLETE: Additional patel ging recommended (ACR Category 0) of the Left breast. The Breast Imaging Cent er will contact the patient to schedule additional imaging. The contralateral breast is NEGATIVE (AC R Category 1). Routine screening mammography is recommended of the Right breast with the frequency dependent on the patient's age and breast cancer risk factors. Marla Wheatley APRN IMG MAMMO ORDERABLES documented in this encounter Visit Diagnoses Not on filedocumented in this encounter Care Teams Wharf Operator Relationship Specialty Start Date End Date Marla Wheatley APRN PCP - General 08/20/10 05/20/15 1 [place] [address] documented as of this encounter
--- OUTSIDE RECORDS SUMMARY | 2022-07-25 10:54 | XMS_ITS | Encounter Summary ---
:1960 Author Organization [place] [address] Care Team Providers Name Role Phone Marla Wheatley Rodolfo WOOTEN Primary Care Provider Reason for Visit Reason Comments Left Finger Pain index finger,slammed into do oor jam in September Encounter Details Date Type Department Care Team Description 02/26/2012 Office Visit Orthopaedics at [facility] Joe Pickard, Finger sprain [facility] (Primary Dx) [place] [address] [place] [address] ORTHOPAEDIC SURGERY [place] [address] Social History Tobacco Use Types Packs/Day Years Used Date Never Assessed Sex Assigned at Date Recorded Not on file documented as of this encounter Progress Notes Kari Bender PA - 02/26/2012 9:27 AM EDT PATIENT NAME: Fely Shaw AGE: 51 y.o. MR#: [id number] DATE OF VISIT: 02/26/2012 DATE OF INJURY/ONSET: September 2011 STAFF: Dr. Pickard CHIEF COMPLAINT: left index finger pain HISTORY OF PRESENT ILLNESS: Ms. Shaw is a right hand dominant 51 y.o. year old female who comes into clinic today for evaluation of the left index finger. She was referred to [facility] Ortho by Marla Wheatley. She states that back in September she thinks she bumped her hand on a door frame and may have caught her finger as well, but she cannot recall the specific mechanism. She noticed that the MCP joint did swell and bruise, but this resolved over time. She continues to have pain over her MCP joint, particularly with repetitive extension. 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 Treatment to date has included ice and ibuprofen as needed. 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 Shaw a 51 y.o. year old is alert and oriented. She appears in no acute discomfort and is resting comfortably in a chair in the exam room. Inspection: No obvious effusions, discolorations, or deformities of patient's left index finger and MCP. Thumb basilar joint hyperextends bilaterally. Palpation: Tender over the radial side of her index MCP joint. ROM/Strength: Full wrist ROM bilaterally. Full thumb and finger ROM with intact FDS, FDP, EPL, FPL bilaterally. Power and pinch business intelligence etl developer are 5/5 bilaterally. Pinch barrel painter on left causes pain. No evidence ofintrinsic hand weakness. Orthopedic testing: No instability of the MCP joint with stress testing Neurovascular: Normal motor function of the radial, median, and ulnar nerves. Normal sensation alongradial, median, and ulnar nerve distributions. Radial pulses are 2+ and equal bilaterally with good hand perfusion. RADIOLOGICAL STUDIES: X-rays showed no acute fracture or dislocation. No evidence for occult fracture ASSESSMENT: left MCP radial collateral ligament PLAN: Ms. Shaw and Yifan discussed her radiologic findings and physical exam findings. She most likely sprained her RCL initially, however there is no instability on exam. Dr. Pickard also evaluated the patient and discussed that these types of injuries can take up to a year to fully resolve. She was offered hand therapy with modalities for pain management. At this point, she feels she can manage this at home. She will return for follow up as needed if she fails to improve. At that time, MRI may be indicated. The patient understands to contact us if they have any other questions or concerns. documented in this encounter Plan of Treatment Upcoming Encounters Date Type Specialty Care Team Description 08/07/2022 TH [facility] Nahid Carl PsyD (TeleHealth) [facility] [place] [address] (Wo rk) documented as of this encounter Visit Diagnoses Diagnosis Finger sprain - Primary Sprain of hand, unspecified site documented in this encounter Care Teams Chain Hooker Relationship Specialty Start Date End Date Marla Wheatley APRN PCP - General 08/20/10 05/20/15 1 [place] [address] documented as of this encounter
--- OUTSIDE RECORDS SUMMARY | 2022-07-25 10:54 | XMS_ITS | Encounter Summary ---
:1960 Author Organization [facility] [place] [address] Care Team Providers Name Role Phone Marla Wheatley APRN Primary Care Provider Encounter Details Date Type Department Care Team Description 12/18/2010 Office Visit Orthopaedics at [facility] Paxton Nieto, [facility] [place] [address] [facility] [phone] ORTHOPAEDIC SURG [place], [place] [address] (Wo rk) Social History Tobacco Use Types Packs/Day Years Used Date Never Assessed Sex Assigned at Date Recorded Not on file documented as of this encounter Plan of Treatment Upcoming Encounters Date Type Specialty Care Team Description 08/07/2022 TH Visit [facility] Nahid Carl PsyD (TeleHealth) [facility] er [place], [place] [address] (Wo rk) documented as of this encounter Visit Diagnoses Not on filedocumented in this encounter Care Teams Planting Material Remover Relationship Specialty Start Date End Date Marla Wheatley APRN PCP - General 08/20/10 05/20/15 1 [place] [address] documented as of this encounter
--- OUTSIDE RECORDS SUMMARY | 2022-07-25 10:54 | XMS_ITS | Encounter Summary ---
:1960 Author Organization [facility] [place] [address] Care Team Providers Name Role Phone Marla Wheatley JE Primary Care Provider Reason for Visit Reason Comments Back Pain DOI 04/22/12 Pain In Limb Encounter Details Date Type Department Care Team Description 04/22/2012 Office Visit Occupational Medicine Ronnie Hdez L umbar strain (Primary Dx); at [facility] JE SI (sacroiliac) pain [facility] [place] [address] OCCUPATIONAL [phone] MEDICINE [place], [place] [address] Social History Tobacco Use Types Packs/Day Years Used Date Former Smoker Sex Assigned at Date Recorded Not on file documented as of this encounter Last Filed Vital Signs Vital Sign Reading Time Taken Comments Blood Pressure 120/78 04/22/2012 3:38 PM EDT Pulse 85 04/22/2012 3:38 PM EDT Temperature - - Respiratory Rate - - Oxygen Saturation - - Inhaled Oxygen Concentration - - Weight 69.4 kg (153 lb) 04/22/2012 3:38 PM EDT Height 172.7 cm (5' 8) 04/22/2012 3:38 PM EDT Body Mass Index 23.26 04/22/2012 3:38 PM EDT documented in this encounter Progress Notes Ronnie Hdez APRN - 04/26/2012 11:44 AM EDT S: EE presents to OM for evaluation of lumbar pain, R > L, with R posterolateral thigh pain sincerolling a 400+ lb patient toward herself yesterday. Reports sudden onset of the sx during the rolling maneuver, and has experienced tightening of the lower back with increased discomfort with movement developing since then. Denies bowel or bladder problems associated with the injury. No previous serious back injury, and no other injury from this incident. Does not feel able to safely continue regularduty, and we concur, given her presentation today. O: Upon presentation, EE appears well but in mild-moderate distress. Sits uncomfortably in the exam room chair. Rises awkwardly from seated position and ambulates with a nonantalgic gait. Upon examination of the lower back, there is no swelling, deformation or discoloration of the overlying skin. Palpation over the R lower back elicits some discomfort, w no L sided sx voiced. No spasm is appreciated in the lumbar musculature. Palpation over the R buttock is tender, with some reproduction of R posterolateral thigh pain voiced. Negative SLRs, with 2+ DTRs in both LEs. Normal sensation and brisk capillary refill distally in both LEs. EE demonstrates limited forward flexion (30 degrees) at the waist 2/2 R lumbar pain and stiffness. Focused exam otherwise unremarkable. A: Lumbar strain--R > L, w R SI sx P: Counseled w EE regarding anticipated trajectory of recovery over next several weeks Continue NSAIDs adding Tylenol per label Heat/ice as discussed w gentle stretches as tolerated We will place protective work restrictions of: 15 lb max/10 lb frequent lift/carry/push/pull No bend/kneel/squat No ladder climbing Rotate stand/walk/sit for comfort No work above shoulder level No boosting patients FU w OM in one week or before if needed EE understands and agrees w plan of care WC PW completed Sumaya Wheatley, RN - 04/22/2012 3:37 PM EDT Back pain aching into right leg after assisting in rolling a pt weighing >400LB; pain rated 4/10.EROI completed. Sumaya Wheatley RN documented in this encounter Plan of Treatment Upcoming Encounters Date Type Specialty Care Team Description 08/07/2022 TH Visit [facility] Nahid Carl PsyD (TeleHealth) [facility] [address] [place], [place] [address] (Wo rk) documented as of this encounter Visit Diagnoses Diagnosis Lumbar strain - Primary Sprain of lumbar region SI (sacroiliac) pain Disorders of sacrum documented in this encounter Care Teams Cyber Legal Advisor Relationship Specialty Start Date End Date Marla Wheatley APRN PCP - General 08/20/10 05/20/15 1 [place] [address] documented as of this encounter
--- OUTSIDE RECORDS SUMMARY | 2022-07-25 10:54 | XMS_ITS | Encounter Summary ---
:1960 Author Organization [facility] Address [facility] [place] [address] Care Team Providers Name Role Phone Marla Wheatley JE Primary Care Provider Reason for Visit Reason Comments Left Knee Pain Encounter Details Date Type Department Care Team Description 02/12/2011 Follow-Up Physical Therapy at Josefina Vargas PT Left knee pain [facility] (Primary Dx) [facility] [address] PHYSICAL [place] & [place] [address] REHABILITAT [phone] [place] [address] Social History Tobacco Use Types Packs/Day Years Used Date Never Assessed Sex Assigned at Date Recorded Not on file documented as of this encounter Progress Notes Josefina Vargas PT - 02/12/2011 9:10 AM EDT Physical Therapy Progress Note Total treatment time: 08:30-09:00 minutes Total timed code treatment: 30 minutes 2 therex Follow up visit for patient with left knee pain s/p meniscectomy S: Patient reports she is doing well and has been a bit sore with 8 hr shift O: Upright Bike 0 resistance 5 min, heel raises x20, calf stretch 30 sec,Total gym L=6 single leg x12 retro walking L=5 x5 L=6 x3 and side walkingL=5x3 , 8 step ups x15 8' step downs x12, BOSU squats x10 lunges x5 each SAQ with #4 x15, ice A: Tolerated treatment well P: cont physical therapy for strength, balance, proprioception, gait documented in this encounter Plan of Treatment Upcoming Encounters Date Type Specialty Care Team Description 08/07/2022 TH Visit [facility] Nahid Carl PsyD (TeleHealth) [facility] [place] [address] (Wo rk) documented as of this encounter Visit Diagnoses Diagnosis Left knee pain - Primary Pain in joint, lower leg documented in this encounter Care Teams Dray Driver Relationship Specialty Start Date End Date Marla Wheatley APRN PCP - General 08/20/10 05/20/15 1 [place] [address] documented as of this encounter
--- OUTSIDE RECORDS SUMMARY | 2022-07-25 10:54 | XMS_ITS | Encounter Summary ---
:1960 Author Organization [facility] Address [facility] [place] [address] Care Team Providers Name Role Phone Marla Wheatley JE Primary Care Provider Reason for Visit Reason Comments Left Knee Pain Encounter Details Date Type Department Care Team Description 12/31/2010 Follow-Up Physical Therapy at Josefina Chambers, PT Left knee pain [facility] (Primary Dx) [facility] [address] PHYSICAL MEDICINE & [place] [address] REHABILITAT [phone] [place] [address] Social History Tobacco Use Types Packs/Day Years Used Date Never Assessed Sex Assigned at Date Recorded Not on file documented as of this encounter Progress Notes Josefina Chambers PT - 12/31/2010 11:16 AM EDT Physical Therapy Progress Note Total treatment time: 10:00-10:30 Total timed code treatment: 30 minutes Follow up visit for patient with s/p left knee meniscectomy Current Goals: To be able to walk/ do stairs without pain S: Pt reports that she is still sore in her left knee. She worked Yesterday 6 hrs and felt it swell and was painful after a few hours. She did report that Thursday it was feeling better but Thursday it was achy. She reports that she feels she can walk better and longer before limping but walking into work yesterday was a significant challenge. She is concerned, as well as I, on her scheduled return to work 12 hours next week. O: Therex: 1 Units: Calf and hamstring stretch, heel rasies x15, hip abd and ext with red band standing x10 each, 4 step up x10, step onto Airex x8, quad set Manual: 1 units STM posterior knee , patella mobilizations IFC 40% scan 14 min with ICE updated home exercise program A: Tolerated treatment well with improved gait and VMO firing P: cont physical therapy for strength, balance, gait JOSEFINA CHAMBERS documented in this encounter Plan of Treatment Upcoming Encounters Date Type Specialty Care Team Description 08/07/2022 TH Visit [facility] Nahid Carl PsyD (TeleHealth) [facility] [address], [place] [address] (Wo rk) documented as of this encounter Visit Diagnoses Diagnosis Left knee pain - Primary Pain in joint, lower leg documented in this encounter Care Teams Floor Broker Relationship Specialty Start Date End Date Marla Wheatley APRN PCP - General 08/20/10 05/20/15 1 [place] [address] documented as of this encounter
--- OUTSIDE RECORDS SUMMARY | 2022-07-25 10:54 | XMS_ITS | Encounter Summary ---
:1960 Author Organization [facility] [place] [place] [address] Care Team Providers Name Role Phone Marla Wheatley APRN Primary Care Provider Encounter Details Date Type Department Care Team Description 10/10/2010 Office Visit Occupational Medicine at Ronnie Hdez APRN [facility] Nahid vincent [place] [address] [place] [address] [phone] (Wo rk) Social History Tobacco Use Types Packs/Day Years Used Date Never Assessed Sex Assigned at Date Recorded Not on file documented as of this encounter Plan of Treatment Upcoming Encounters Date Type Specialty Care Team Description 08/07/2022 TH Visit [facility] Nahid Carl PsyD (TeleHealth) [facility] [place], [place] [address] (Wo rk) documented as of this encounter Visit Diagnoses Not on filedocumented in this encounter Care Teams Tissue Packer Relationship Specialty Start Date End Date Marla Wheatley APRN PCP - General 08/20/10 05/20/15 1 [place] [address] documented as of this encounter
--- OUTSIDE RECORDS SUMMARY | 2022-07-25 10:54 | XMS_ITS | Encounter Summary ---
:1960 Author Organization [facility] [place] [address] Care Team Providers Name Role Phone Marla Wheatley APRN Primary Care Provider Encounter Details Date Type Department Care Team Description 11/27/2010 Follow-Up Occupational Medicin e at [facility] Ronnie Hdez APRN [facility] [place] [address] OCCUPATIONAL MEDICINE [phone] [place], [place] [address] (Wo rk) Social History Tobacco Use Types Packs/Day Years Used Date Never Assessed Sex Assigned at Date Recorded Not on file documented as of this encounter Plan of Treatment Upcoming Encounters Date Type Specialty Care Team Description 08/07/2022 TH Visit [facility] Nahid Carl PsyD (TeleHealth) [facility] [address] [place], [place] [address] (Wo rk) documented as of this encounter Visit Diagnoses Not on filedocumented in this encounter Care Teams Car Icer Relationship Specialty Start Date End Date Marla Wheatley APRN PCP - General 08/20/10 05/20/15 1 [place] [address] documented as of this encounter
--- OUTSIDE RECORDS SUMMARY | 2022-07-25 10:54 | XMS_ITS | Encounter Summary ---
:1960 Author Organization [facility] [place] [address] Care Team Providers Name Role Phone Marla Wheatley JE Primary Care Provider Encounter Details Date Type Department Care Team Description 05/11/2012 Follow-Up Physical Therapy at [facility] Allan Salguero, PT Lumbar [facility]; [facility] & [place] [address] REHABILITAT [phone] Social History Tobacco Use Types Packs/Day Years Used Date Former Smoker Sex Assigned at Date Recorded Not on file documented as of this encounter Progress Notes Allan Salguero, PT - 05/11/2012 3:32 PM EDT Physical Therapy Progress Note Total treatment time: 35 minutes Total timed code treatment: 35 minutes Current Medicare Cert Period n/a Follow up visit for patient with 1. Lumbar strain (847.2L) 2. Lower back pain (724.2U) Current goals: Therapy Short Term Goals (3 weeks) 1. Patient to be indep with home exercise program. 2. Decrease pain 5/10 or less with most activities 3. Centralize symptoms to the buttocks most of the time Therapy Retirement Actuary Goals ( 6 weeks) 1. Patient to decrease ENID to less than 15% 2. Decrease pain to 3/10 or less with most activities 3. Return to usual work and recreational activities without significant increase in symptoms. S: Patient reports that the cramping feeling in her leg is feeling much better. Still having posterior thigh pain as well as an increase in lower back pain. O: Therapeutic Exercise (62690) 20 minutes and Manual Therapy (37531) 15 minutes ?? Manual therapy ?? STM to the right thoracolumbar paraspinals in left side lying position ?? Therex ?? Prone and prone on elbows progression ?? Pelvic tilt, 5 seconds x 10 ?? Pelvic tilt with marching, 20 reps ?? Pelvic tilt with knee extension 20 reps ?? Bridging, 8 reps, stopped due to lower back pain A: It appears that the symptoms in the right LE are centralizing. Patient reassured that an increasein lower back pain is expected and an improvement in radicular symptoms is usually predictive of recovery. Right thoracolumbar paraspinals are notably tight. P: Continue physical therapy to centralize radicular symptoms and improve pain, range and function. documented in this encounter Plan of Treatment Upcoming Encounters Date Type Specialty Care Team Description 08/07/2022 TH Visit [facility] Nahid Carl PsyD (TeleHealth) [facility] [address] [place], [place] [address] (Wo rk) documented as of this encounter Visit Diagnoses Diagnosis Lumbar strain Sprain of lumbar region Lower back pain Lumbago documented in this encounter Care Teams Estate And Trust Tax Principal Relationship Specialty Start Date End Date Marla Wheatley APRN PCP - General 08/20/10 05/20/15 1 [place] [address] documented as of this encounter
--- OUTSIDE RECORDS SUMMARY | 2022-07-25 10:54 | XMS_ITS | Encounter Summary ---
:1960 Author Organization [facility] [place] [address] Care Team Providers Name Role Phone Marla Wheatley APRN Primary Care Provider Encounter Details Date Type Department Care Team Description 11/27/2010 Hospital Encounter MRI at [facility], DR EASTMAN [facility] Bradford Iraheta MD [facility] [place] [address] [place] [address] Social History Tobacco Use Types Packs/Day Years Used Date Never Assessed Sex Assigned at Date Recorded Not on file documented as of this encounter Plan of Treatment Upcoming Encounters Date Type Specialty Care Team Description 08/07/2022 [facility] Nahid Carl PsyD (TeleHealth) [facility] er [address] [place], [place] [address] (Wo rk) documented as of this encounter Visit Diagnoses Not on filedocumented in this encounter Care Teams Director Geothermal Operations Relationship Specialty Start Date End Date Marla Wheatley APRN PCP - General 08/20/10 05/20/15 1 [place] [address] documented as of this encounter
--- OUTSIDE RECORDS SUMMARY | 2022-07-25 10:54 | XMS_ITS | Encounter Summary ---
:1960 Author Organization [facility] [place] [address] Care Team Providers Name Role Phone Marla Wheatley JE Primary Care Provider Reason for Visit Reason Comments Left Knee Pain Encounter Details Date Type Department Care Team Description 02/26/2011 Follow-Up Physical Therapy at Josefina Vargas, PT [facility] DR PHYSICAL MEDICINE & [place] [address] Left knee pain [facility] Apolinar Pittman MD [facility] ORTHOPAEDIC SURGERY [place] [phone] (Primary Dx) [place] [address] Social History Tobacco Use Types Packs/Day Years Used Date Never Assessed Sex Assigned at Date Recorded Not on file documented as of this encounter Progress Notes Josefina Vargas, PT - 02/26/2011 9:26 AM EDT Physical Therapy Progress Note Total treatment time:09;00-09:30 minutes Total timed code treatment: 30 minutes 2 therex, Follow up visit for patient with left knee pain s/p meniscectomy S: Patient reports she has been doing better but still having difficulty with lunges. She is going to 12 hrs coming up next week. O: Upright Bike 1 resistance 5 min, heel raises x20, calf stretch 30 sec,Total gym L=7 double leg x12 , single leg x10, lunges x10 each, step downs 8 x10 , Theraball hip ext x10, hamstring curls x10, ice A: Tolerated treatment well P: cont physical therapy for strength, balance, proprioception, gait documented in this encounter Plan of Treatment Upcoming Encounters Date Type Specialty Care Team Description 08/07/2022 TH [facility] Nahid Carl PsyD (TeleHealth) [facility] [address], [place] [address] (Wo rk) documented as of this encounter Visit Diagnoses Diagnosis Left knee pain - Primary Pain in joint, lower leg documented in this encounter Care Teams Refinery Operator Light Ends Recovery Relationship Specialty Start Date End Date Marla Wheatley APRN PCP - General 08/20/10 05/20/15 1 [place] [address] documented as of this encounter
--- OUTSIDE RECORDS SUMMARY | 2022-07-25 10:54 | XMS_ITS | Encounter Summary ---
:1960 Author Organization [facility] [place] [address] Care Team Providers Name Role Phone Marla Wheatley JE Primary Care Provider Encounter Details Date Type Department Care Team Description 01/19/2012 Orders Only Radiology Rogelio Dodson MD [facility] Nahid [facility] [place] [address] DIAGNOSTIC RADIOLOGY [phone] [place], [place] [address] (Wo rk) Social History Tobacco Use Types Packs/Day Years Used Date Never Assessed Sex Assigned at Date Recorded Not on file documented as of this encounter Plan of Treatment Upcoming Encounters Date Type Specialty Care Team Description 08/07/2022 TH [facility] Nahid Carl PsyD (TeleHealth) [facility] [address] [place], [place] [address] (Wo rk) documented as of this encounter Procedures Procedure Name Priority Date/Time Associated Diagnosis Comme nts FILM LIBRARY Routine 01/19/2012 12:00 PM Results for this STORAGE ONLY MAMMO EDT procedure are in the results section. documented in this encounter Results FILM LIBRARY- STORAGE ONLY MAMMO (01/19/2012 12:00 PM EDT) Anatomical Region Laterality Modality Other Specimen (Source) Anatomical Collection Method Collection Time Re ceived Time Location / / Volume Laterality 01/19/2012 12:00 PM EDT Narrative 10/31/2013 10:56 PM EST This is a non-reportable exam. Procedure Note Yves Dominguez - 10/31/2013Formatting of t his note might be different from the original. This is a non-reportable exam. Rogelio Dodson MD [facility] FILM LIBRARY ORDERABLES documented in this encounter Visit Diagnoses Not on filedocumented in this encounter Care Teams Jira Developer Relationship Specialty Start Date End Date Marla Wheatley, SEASONAL TAX PREPARER PCP - General 08/20/10 05/20/15 1 [place] [address] documented as of this encounter
--- OUTSIDE RECORDS SUMMARY | 2022-07-25 10:54 | XMS_ITS | Encounter Summary ---
:1960 Author Organization [facility] [place] [address] Care Team Providers Name Role Phone Marla Wheatley JE Primary Care Provider Reason for Visit Reason Comments Left Knee Pain Encounter Details Date Type Department Care Team Description 02/06/2011 Follow-Up Orthopaedics at [facility] Apolinar Pittman, 12/11/10 ARTHROSCOPY [facility] Nahid vincent MD KNEE,[place] [address] [facility] SINGLE WITH SHAVING [phone] DR ERVIN /LEFT/LATERAL ORTHOPAEDIC (Primary Dx) SURGERY [place], [place] [address] Social History Tobacco Use Types Packs/Day Years Used Date Never Assessed Sex Assigned at Date Recorded Not on file documented as of this encounter Progress Notes Apolinar Pittman MD - 02/06/2011 8:43 AM EDT Subjective: SURGERY DATE: 12/11/2010 Actual Procedures: ARTHROSCOPY KNEE,MENISCECTOMY SINGLE WITH SHAVING [place] /LEFT/LATERAL MENISCUS/MENISCECTOMY Patient reports that she is doing better. 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 No fever or chills. Objective: General : alert, appears stated age and cooperative Gait: Normal. Left Lower Extremity Knee Effusion: None. Ecchymosis: none Knee ROM: 0 to 120 degrees Tenderness: none No calf tenderness. Sensation: intact to light touch Pulses: normal DP and PT pulses Imaging X-rays:none Assessment: Improving following partial menicectomy. Plan: Will advance work activity. Will see her back based on sxs. We will have her work 8 hours for 2 weeks and then transition to regular shifts as tolerated. She may need to work 10 hours shifts prior to returning to full 12 hour shifts. documented in this encounter Plan of Treatment Upcoming Encounters Date Type Specialty Care Team Description 08/07/2022 TH [facility] Nahid Carl PsyD (TeleHealth) [facility] [address], [place] [address] (Wo rk) documented as of this encounter Visit Diagnoses Diagnosis 12/11/10 ARTHROSCOPY KNEE,MENISCECTOMY SI NGLE WITH SHAVING OSC /LEFT/LATERAL - Primary Pain in joint, lower leg documented in this encounter Care Teams Consulting Practice Director Relationship Specialty Start Date End Date Marla Wheatley, JE PCP - General 08/20/10 05/20/15 1 [place] [address] documented as of this encounter
--- OUTSIDE RECORDS SUMMARY | 2022-07-25 10:54 | XMS_ITS | Encounter Summary ---
:1960 Author Organization [facility] [place] [address] Care Team Providers Name Role Phone Marla Wheatley JE Primary Care Provider Reason for Visit Reason Comments Knee Pain Encounter Details Date Type Department Care Team Description 01/27/2011 Follow-Up Physical Therapy at Josefina Vargas, PT [facility] DR PHYSICAL MEDICINE & [place] [address] Left knee pain [facility] Apolinar Pittman MD [facility] [place]THOPAEDIC [place] [address] (Primary Dx) [place] [address] Social History Tobacco Use Types Packs/Day Years Used Date Never Assessed Sex Assigned at Date Recorded Not on file documented as of this encounter Progress Notes Josefina Vargas, PT - 01/27/2011 8:31 AM EDT Physical Therapy Progress Note Total treatment time: 08:00-08:30 minutes Total timed code treatment: 30 minutes 2 therex Follow up visit for patient with left knee pain s/p meniscectomy S: Pt reports she is doing better and was able to do the treadmill for 8min and then the bike for 20min. She raked without pain. She is working nights for the next 3 days. O: Upright Bike 1 resistance 5 min, heel raises x20, calf stretch 30 sec, TKE x10 with green band,Total gym L=8 single leg x10 Total gym L=10 x20, retro walking L=4 x5 and side walkingL= x3 hip abd with green on Airex, rocker board squats x15 Each way, ice A: Tolerated treatment well P: cont physical therapy for strength, balance, proprioception, gait documented in this encounter Plan of Treatment Upcoming Encounters Date Type Specialty Care Team Description 08/07/2022 TH [facility] Nahid Carl PsyD (TeleHealth) [facility] [address] [place], [place] [address] (Wo rk) documented as of this encounter Visit Diagnoses Diagnosis Left knee pain - Primary Pain in joint, lower leg documented in this encounter Care Teams Outside Cutter Relationship Specialty Start Date End Date Marla Wheatley APRN PCP - General 08/20/10 05/20/15 1 [place] [address] documented as of this encounter
--- OUTSIDE RECORDS SUMMARY | 2022-07-25 10:54 | XMS_ITS | Encounter Summary ---
:1960 Author Organization [facility] Address [facility] [place] [address] Care Team Providers Name Role Phone Marla Wheatley JE Primary Care Provider Reason for Visit Reason Comments Knee Pain Encounter Details Date Type Department Care Team Description 01/14/2011 Follow-Up Physical Therapy at Josefina Vargas, PT Left knee pain [facility] (Primary Dx) [facility] [address] M[address] PHYSICAL MEDICINE & [place] [address] REHABILITAT [phone] [place] [address] Social History Tobacco Use Types Packs/Day Years Used Date Never Assessed Sex Assigned at Date Recorded Not on file documented as of this encounter Progress Notes Josefina Vargas PT - 01/14/2011 9:40 AM EDT Physical Therapy Progress Note Total treatment time: 09:30-10:00 minutes Total timed code treatment: 30 minutes 2 therex Follow up visit for patient with left knee pain s/p meniscectomy S: Pt reports she is doing better but still sore at the end of the day. She has been using then bikeand doing HEP which takes about 45min O: Bike 1 resistance 5 min, heel raises x20, calf stretch 30 sec, heel raises x15, 8 step up x10, Total gym squats x10, Squats with band X10, standing hip abd and ext with yellow band x10, theraball hip ext x10, hamstring curls x10 and bridge with yellow Tband with abd x10 A: Tolerated treatment well band added to HEP P: cont physical therapy for strength, balance, proprioception, gait documented in this encounter Plan of Treatment Upcoming Encounters Date Type Specialty Care Team Description 08/07/2022 TH [facility] Nahid Carl PsyD (TeleHealth) [facility] [address], [place] [address] (Wo rk) documented as of this encounter Visit Diagnoses Diagnosis Left knee pain - Primary Pain in joint, lower leg documented in this encounter Care Teams Teacher Emotionally Impaired Relationship Specialty Start Date End Date Marla Wheatley APRN PCP - General 08/20/10 05/20/15 1 [place] [address] documented as of this encounter
--- OUTSIDE RECORDS SUMMARY | 2022-07-25 10:54 | XMS_ITS | Encounter Summary ---
:1960 Author Organization [facility] Address [facility] [place] [address] Care Team Providers Name Role Phone Marla Wheatley EJ Primary Care Provider Encounter Details Date Type Department Care Team Description 04/02/2012 Orders Only Radiology Carol Paez, Abnormal mammogram, [facility] MD Savi unspecified (Primary Drive [facility] Dx) [place] [address] DIAGNOSTIC RADIOLOGY [phone] [place], [place] [address] (Wo rk) Social History Tobacco Use Types Packs/Day Years Used Date Never Assessed Sex Assigned at Date Recorded Not on file documented as of this encounter Plan of Treatment Upcoming Encounters Date Type Specialty Care Team Description 08/07/2022 TH [facility] Nahid Carl PsyD (TeleHealth) [facility] er [place], [place] [address] (Wo rk) documented as of this encounter Results Mammo breast US unilateral [...] factors. Savi Paez MD IMG MAMMO ORDERABLES Mammo call back diagnostic extra view unilateral [...] encounter Visit Diagnoses Diagnosis Abnormal mammogram, unspecified - Primar y Abnormal mammogram, unspecified Abnormal mammogram, unspecified documented in this encounter Care Teams Adjunct Professor Of Law Relationship Specialty Start Date End Date Marla Wheatley, JE PCP - General 08/20/10 05/20/15 1 [place] [address] documented as of this encounter
--- OUTSIDE RECORDS SUMMARY | 2022-07-25 10:54 | XMS_ITS | Encounter Summary ---
:1960 Author Organization [facility] [place] [address] Care Team Providers Name Role Phone Marla Wheatley APRN Primary Care Provider Encounter Details Date Type Department Care Team Description 12/25/2010 Office Visit Physical Therapy at [facility] Josefina Vargas, PT [facility] PHYSICAL MEDICINE & [place] [address] [facility] Apolinar Ortiz MD [facility] [place] [address] [place] [address] Social History Tobacco Use Types Packs/Day Years Used Date Never Assessed Sex Assigned at Date Recorded Not on file documented as of this encounter Plan of Treatment Upcoming Encounters Date Type Specialty Care Team Description 08/07/2022 TH [facility] Nahid Carl PsyD (TeleHealth) [facility] er [place], [place] [address] (Wo rk) documented as of this encounter Visit Diagnoses Not on filedocumented in this encounter Care Teams Skiver Uppers Or Linings Relationship Specialty Start Date End Date Marla Wheatley APRN PCP - General 08/20/10 05/20/15 1 [place] [address] documented as of this encounter
--- OUTSIDE RECORDS SUMMARY | 2022-07-25 10:54 | XMS_ITS | Encounter Summary ---
:1960 Author Organization [facility] Address [facility] [place] [address] Care Team Providers Name Role Phone Marla Wheatley JE Primary Care Provider Reason for Visit Reason Comments Left Knee Pain Encounter Details Date Type Department Care Team Description 03/04/2011 Follow-Up Physical Therapy at Josefina Vargas PT Left knee pain [facility] (Primary Dx) [facility] DR Mijares PHYSICAL MEDICINE & [place] [address] REHABILITAT [phone] [place] [address] Social History Tobacco Use Types Packs/Day Years Used Date Never Assessed Sex Assigned at Date Recorded Not on file documented as of this encounter Progress Notes Josefina Vargas PT - 03/04/2011 8:05 AM EDT Physical Therapy Progress Note Total treatment time:08:00-08:30 minutes Total timed code treatment: 30 minutes 2 therex, Follow up visit for patient with left knee pain s/p meniscectomy S: Patient reports she has been active walking and it was sore with working 12 hrs shifts. She is going on a trip to [place] and will be walking quite a bit. Overall she is better, just lacking endurance with left leg. O: Upright Bike 1 resistance 5 min, heel raises x20, calf stretch 30 sec,Total gym L=10 double leg x12 , single leg x10, lunges x10 each, step downs 8 x10 , Theraball hip ext x10, hamstring curls x10,SAQ with #5 x10, Bosu squats x10 with pertebations , SLS on Airex with ball toss x5, ice A: Tolerated treatment well: Patient has overall good strength in left leg but still weaker in left and decreased endurance in left leg P: cont physical therapy 1x after return from trip to reassess documented in this encounter Plan of Treatment Upcoming Encounters Date Type Specialty Care Team Description 08/07/2022 TH Visit [facility] Nahid Carl PsyD (TeleHealth) [facility] [address], [place] [address] (Wo rk) documented as of this encounter Visit Diagnoses Diagnosis Left knee pain - Primary Pain in joint, lower leg documented in this encounter Care Teams Mechanical Repair Worker Relationship Specialty Start Date End Date Marla Wheatley APRN PCP - General 08/20/10 05/20/15 1 [place] [address] documented as of this encounter
--- OUTSIDE RECORDS SUMMARY | 2022-07-25 10:54 | XMS_ITS | Encounter Summary ---
:1960 Author Organization [facility] [place] [address] Care Team Providers Name Role Phone Marla Wheatley APRN Primary Care Provider Encounter Details Date Type Department Care Team Description 11/21/2010 Follow-Up Physical Therapy at [facility] Josefina Vargas, PT [facility] Nahid [facility] [place] [address] PHYSICAL MEDICINE & [phone] [place] [address] Social History Tobacco Use Types Packs/Day Years Used Date Never Assessed Sex Assigned at Date Recorded Not on file documented as of this encounter Plan of Treatment Upcoming Encounters Date Type Specialty Care Team Description 08/07/2022 TH [facility] Nahid Carl PsyD (TeleHealth) [facility] [address] [place] [address] (Wo rk) documented as of this encounter Visit Diagnoses Not on filedocumented in this encounter Care Teams Poolroom Table Attendant Relationship Specialty Start Date End Date Marla Wheatley APRN PCP - General 08/20/10 05/20/15 1 [place] [address] documented as of this encounter
--- OUTSIDE RECORDS SUMMARY | 2022-07-25 10:54 | XMS_ITS | Encounter Summary ---
:1960 Author Organization [facility] Address [facility] [place] [address] Care Team Providers Name Role Phone Marla Wheatley JE Primary Care Provider Reason for Visit Reason Comments Left Knee Pain Encounter Details Date Type Department Care Team Description 02/19/2011 Follow-Up Physical Therapy at Josefina Vargas PT Left knee pain [facility] (Primary Dx) [facility] DR M[address] PHYSICAL MEDICINE & [place] [address] REHABILITAT [phone] [place] [address] Social History Tobacco Use Types Packs/Day Years Used Date Never Assessed Sex Assigned at Date Recorded Not on file documented as of this encounter Progress Notes Josefina Vargas PT - 02/19/2011 3:30 PM EDT Physical Therapy Progress Note Total treatment time: 15:00-15:30 minutes Total timed code treatment: 30 minutes 1 therex, 1 man Follow up visit for patient with left knee pain s/p meniscectomy S: Patient reports she was sore after travelling in the car for 24 hrs. It was swollen and sore. Sheis back to work today and it is a bit sore But each day it does resolve better. O: Upright Bike 1 resistance 5 min, heel raises x20, calf stretch 30 sec,Total gym L=6 double leg x12 STM to posterior knee, SAQ x15, ice A: Tolerated treatment well P: cont physical therapy for strength, balance, proprioception, gait documented in this encounter Plan of Treatment Upcoming Encounters Date Type Specialty Care Team Description 08/07/2022 TH [facility] Nahid Carl PsyD (TeleHealth) [facility] [address], [place] [address] (Wo rk) documented as of this encounter Visit Diagnoses Diagnosis Left knee pain - Primary Pain in joint, lower leg documented in this encounter Care Teams Surveillance Observer Relationship Specialty Start Date End Date Marla Wheatley APRN PCP - General 08/20/10 05/20/15 1 [place] [address] documented as of this encounter
--- OUTSIDE RECORDS SUMMARY | 2022-07-25 10:54 | XMS_ITS | Encounter Summary ---
:1960 Author Organization [facility] [place] [address] Care Team Providers Name Role Phone Marla Wheatley JE Primary Care Provider Encounter Details Date Type Department Care Team Description 01/14/2012 Orders Only Orthopaedics at [facility] [place] Joe Pickard MD [facility] [place] [address] ORTHOPAEDIC SURGERY [phone] [place], [place] [address] (Wo rk) Social History Tobacco Use Types Packs/Day Years Used Date Never Assessed Sex Assigned at Date Recorded Not on file documented as of this encounter Plan of Treatment Upcoming Encounters Date Type Specialty Care Team Description 08/07/2022 TH Visit [facility] Nahid Carl PsyD (TeleHealth) [facility] [address] [place], [place] [address] (Wo rk) documented as of this encounter Procedures Procedure Name Priority Date/Time Associated Diagnosis Comme nts FILM LIBRARY Routine 01/14/2012 2:39 PM Results f or this STORAGE ONLY DX EDT procedure ar e in HAND the results section. documented in this encounter Results FILM LIBRARY- STORAGE ONLY DX HAND (01/14/2012 2:39 PM EDT) Anatomical Region Laterality Modality Other Specimen (Source) Anatomical Collection Method Collection Time Re ceived Time Location / / Volume Laterality 01/14/2012 2:39 PM EDT Narrative 10/31/2013 10:56 PM EST This is a non-reportable exam. Procedure Note Yves Dominguez - 10/31/2013Formatting of t his note might be different from the original. This is a non-reportable exam. Joe Pickard MD [facility] FILM LIBRARY ORDERABLES documented in this encounter Visit Diagnoses Not on filedocumented in this encounter Care Teams Can Machine Operator Relationship Specialty Start Date End Date Marla Wheatley, DENSITY CONTROL PUNCHER PCP - General 08/20/10 05/20/15 1 [place] [address] documented as of this encounter
--- OUTSIDE RECORDS SUMMARY | 2022-07-25 10:54 | XMS_ITS | Encounter Summary ---
:1960 Author Organization [facility] Address [place] [address] Care Team Providers Name Role Phone Marla Wheatley JE Primary Care Provider Reason for Visit Reason Comments Left Knee Pain Encounter Details Date Type Department Care Team Description 02/04/2011 Follow-Up Physical Therapy at Josefina Vargas, PT Left knee pain [facility] (Primary Dx) [facility] [address] [facility] [place] & [place] [address] REHABILITAT [phone] [place] [address] Social History Tobacco Use Types Packs/Day Years Used Date Never Assessed Sex Assigned at Date Recorded Not on file documented as of this encounter Progress Notes Josefina Vargas PT - 02/04/2011 10:01 AM EDT Physical Therapy Progress Note Total treatment time: 09:30-10:00 minutes Total timed code treatment: 30 minutes 2 therex Follow up visit for patient with left knee pain s/p meniscectomy S: Pt reports she is doing okay. She worked yesterday and it was sore and needed to ice and it was just a bit twingy. She is much better than last week. O: Upright Bike 0 resistance 5 min, heel raises x20, calf stretch 30 sec, TKE x10 with green band,Total gym L=10 single leg x10 Total gym L=10 x20, retro walking L=4 x5 and side walkingL=4 x3 , 6 stepups x15 6 step downs x12, cariocas x4 walking rocker board squats x10 SAQ #3x15 ice A: Tolerated treatment well P: cont physical therapy for strength, balance, proprioception, gait documented in this encounter Plan of Treatment Upcoming Encounters Date Type Specialty Care Team Description 08/07/2022 TH [facility] Nahid Carl PsyD (TeleHealth) [facility] [address], [place] [address] (Wo rk) documented as of this encounter Visit Diagnoses Diagnosis Left knee pain - Primary Pain in joint, lower leg documented in this encounter Care Teams Roof Fitter Relationship Specialty Start Date End Date Marla Wheatley APRN PCP - General 08/20/10 05/20/15 1 [place] [address] documented as of this encounter
--- OUTSIDE RECORDS SUMMARY | 2022-07-25 10:54 | XMS_ITS | Encounter Summary ---
:1960 Author Organization [facility] Address [facility] [place] [address] Care Team Providers Name Role Phone Marla Wheatley JE Primary Care Provider Reason for Visit Reason Comments Left Knee Pain Encounter Details Date Type Department Care Team Description 01/17/2011 Follow-Up Physical Therapy at Josefina Vargas, PT Left knee pain [facility] (Primary Dx) [facility] [address] PHYSICAL MEDICINE & [place] [address] REHABILITAT [phone] [place] [address] Social History Tobacco Use Types Packs/Day Years Used Date Never Assessed Sex Assigned at Date Recorded Not on file documented as of this encounter Progress Notes Josefina Vargas PT - 01/17/2011 11:39 AM EDT Physical Therapy Progress Note Total treatment time: 11:30-12:00 minutes Total timed code treatment: 30 minutes 2 therex Follow up visit for patient with left knee pain s/p meniscectomy S: Pt reports she is doing better but still sore a bit after last session and then Wed it was real sore. She was able to still do exercises but still sore through . She has been standing more at work. O: Upright Bike 1 resistance 5 min, heel raises x20, calf stretch 30 sec, STM to knee to decrease swelling, PROM of knee flexion, ice A: Tolerated treatment well P: cont physical therapy for strength, balance, proprioception, gait documented in this encounter Plan of Treatment Upcoming Encounters Date Type Specialty Care Team Description 08/07/2022 TH Visit [facility] Nahid Carl PsyD (TeleHealth) [facility] [address] [place] [address] (Wo rk) documented as of this encounter Visit Diagnoses Diagnosis Left knee pain - Primary Pain in joint, lower leg documented in this encounter Care Teams Cardiac Sonographer Relationship Specialty Start Date End Date Marla Wheatley APRN PCP - General 08/20/10 05/20/15 1 [place] [address] documented as of this encounter
--- OUTSIDE RECORDS SUMMARY | 2022-07-25 10:54 | XMS_ITS | Encounter Summary ---
:1960 Author Organization [facility] Address [facility] [place] [address] Care Team Providers Name Role Phone Yadi Wheatleyricia Rodolfo PERMACULTURE DESIGNER Primary Care Provider Encounter Details Date Type Department Care Team Description 12/31/2011 Hospital Encounter Laboratory Marla Wheatley, [facility] [address] [place] [phone] [place] [address] [phone] (Wo rk) Social History Tobacco Use Types [...] Carl PsyD (TeleHealth) [facility] [address] [place] [address] (Wo rk) documented as of this encounter Procedures Procedure Name Priority Date/Time Associated Comments Diagnosis LIPID PANEL (REFLEX Routine 12/31/2011 6:54 AM Re sults for this DIRECT LDL) EDT procedure are i n the results section. COMPREHENSIVE Routine 12/31/2011 6:54 AM Results for this METABOLIC PANEL EDT procedure ar e in (NON-FASTING) the results section. documented in this encounter Results (ABNORMAL) LIPID PANEL (FASTING) (12/31/2011 6:54 AM EDT) athologist Signature Chol, Total 210 (H) <=199 CERNER mg/dL MILLENNIUM Comment: Recommendations of the NCEP Adult Treatm ent Panel for the following risk cutoff thresholds for the [place] populatio n: Desirable: <200 mg/dL Borderline High: 200-239 mg/dL High: > or = 240 mg/dL Triglycerides 68 <=149 mg/dL CERNER MILLENN IUM Comment: Reference Range: Normal triglycerides: ??<150 mg/dL Borderline high: ??150-199 mg/dL High: ??200-499 mg/dL Very high: ??>bl=548 mg/dL RHETT 2001; 285(19):6394-4769 HDL 74 >=40 mg/dL CERNER MILLENNIUM Comment: Reference range: ??Low HDL: ?? < 40 mg/dL ??Normal: ?40-60 mg/dL ??Desirable: > 60 mg/dL RHETT 2001; 285(19):1653-7439 LDL Cholesterol 122 (H) <=99 mg/dL CERDAVY MIESHA NIUM Comment: Reference range: ?? Optimal: ?<100 mg/dL ?? Near Optimal/Above Optimal: ?? 100-1 29 mg/dL ?? Borderline high: ?130-159 mg/dL ?? High: ? 160-189 mg/dL ?? Very high: ?>bw=235 mg/dL RHETT 2001: 285(19):9318-4538 Chol/HDL Ratio 2.8 ratio CERNER MILLENNI UM Comment: A Cholesterol to HDL ratio below 4:1 is desirable. ??Studies suggest that increased CAD risk occurs at ratios abov e 5 for females and above 6 for men. ? Canadian Heart Association ??(htt p://www.americanheart.org) ? Radha Int Med, 1994; 121:641 ? AM J Med, 1998; 105(1A):48S Specimen Anatomical Collection Method Collection Time Receive d Time (Source) Location / / Volume Laterality Blood specimen 12/31/2011 6:54 AM 012 6:57 (specimen) EDT AM EDT Resulting Agency Comment Spec In Lab Marla Wheatley PERMACULTURE DESIGNER CHEMISTRY ORDERABLES Performing Organization Address City/State/[place] [address] CERNER MILLENNIUM COMPREHENSIVE METABOLIC PANEL (NON-FASTING) (12/31/2011 6:54 AM EDT) P athologist Signature Glucose Lvl 107 60 - 199 CERNER mg/dL MILLENNIUM Comment: Diabetes: >=200 mg/dL plus symp toms BUN 16 8 - 18 mg/dL CERNER MILLENNIUM Creatinine 0.77 0.70 - 1.20 mg/dL CERNER MILL ENNIUM Sodium 141 135 - 145 mmol/L CERNER MIESHA NIUM Potassium 4.0 3.5 - 5.0 mmol/L CERNER MIESHA NIUM Comment: Please note: ??Patients with WBC >100,00 0 may have falsely elevated Potassium levels. ??For accurate Potassium quantif ication in these patients send serum separator tube (gold top) for subsequent determinations. ??Contact the Clinical Chemistry Laboratory if there are any qu estions. Chloride 103 98 - 107 mmol/L CERNER MILLENN IUM CO2 29 22 - 31 mmol/L CERNER MILLENNI UM Anion Gap 9 5 - 15 mmol/L CERNER MILLENNIU M Calcium 9.6 8.5 - 10.5 mg/dL CERNER MIESHA NIUM Total Protein 7.5 6.4 - 8.3 gm/dL CERNER MIL LENNIUM Albumin 4.5 3.2 - 5.2 gm/dL CERNER MILLENN IUM AST 22 0 - 30 unit/L CERNER MILLENNIU M ALT 20 0 - 30 unit/L CERNER MILLENNIU M Alk Phos 79 40 - 104 unit/L CERNER MILLENN IUM Total Bilirubin 0.4 0.2 - 1.3 mg/dL CERNER M ILLENNIUM Bili, Direct 0.1 0.0 - 0.3 mg/dL CERNER MILL ENNIUM Estimated GFR >60 >=60 CERNER MILLENNIU M Comment: The National Kidney Disease Education Pr ogram (NKDEP) has recommended all laboratories report estimated GFR (eGFR) along with plasma creatinine measurements to assist you with recognit ion of early kidney disease. Caveats: ??Plasma creatinine should be a t steady-state (unchanged within the past week). For patient s multiply eGFR by 1.2. The MDRD equation was developed using patients be tween the ages of 18 and 70 years. ?? The MDRD equation has not been validated for patients < 18 years of age and should not be used to assess renal function in the pediatric population. ??The MDRD eGFR equation will also overestimate the true GFR of patients above the age of 70. ??This overestimation is variable bu t increases with age. At present, NKDEP does NOT recommend usi ng the MDRD equation for drug dosing purposes and pharmacists should continue to use their current dosing methods. In addition, numerical eGFR values great er than 60 ml/min/1.73 square meters should be treated as > 60, and not an ex act number due to greater inaccuracies at these higher values. Per NKDEP, they classify normal renal function as any GFR >60ml/min/1.73 square meters; chronic kidney disease wh en GFR <60, and renal failure when GFR <15. ??This calculation may not be valid for patients with atypical muscle mass (very lean or obese), acute renal failur e, and in patients with diabetic kidney disease. References: http://nkdep.nih.gov/resources/NKDEP_Sug gestn4Labs_0606_508.pdf http://www.kidney.org/professionals/kls/ pdf/faq_gfr.pdf Yudelka K, Monico NA, Josefa AK, Aman TS, Uriel AD, Fadi EDWARD. Relative performance of the MDRD and CKD-EPI equa tions for estimating glomerular filtration rate among patients with vari ed clinical presentations. Clin J Am Soc Nephrol;6:1963-72. Specimen Anatomical Collection Method Collection Time Receive d Time (Source) Location / / Volume Laterality Blood specimen 12/31/2011 6:54 AM 012 6:57 (specimen) EDT AM EDT Resulting Agency Comment Spec In Lab Marla Wheatley APRN CHEMISTRY ORDERABLES Performing Organization Address City/State/[place] [address] [facility] documented in this encounter Visit Diagnoses Not on filedocumented in this encounter Care Teams Carpenter Prototype Relationship Specialty Start Date End Date Marla Wheatley APRN PCP - General 08/20/10 05/20/15 1 [place] [address] documented as of this encounter
--- OUTSIDE RECORDS SUMMARY | 2022-07-25 10:54 | XMS_ITS | Encounter Summary ---
:1960 Author Organization [facility] Address [facility] [place] [address] Care Team Providers Name Role Phone Marla Wheatley JE Primary Care Provider Reason for Visit Reason Comments Left Knee Pain Encounter Details Date Type Department Care Team Description 01/20/2011 Follow-Up Physical Therapy at Josefina Vargas, PT Left knee pain [facility] (Primary Dx) [facility] [address] PHYSICAL MED[place] & [place] [address] REHABILITAT [phone] [place] [address] Social History Tobacco Use Types Packs/Day Years Used Date Never Assessed Sex Assigned at Date Recorded Not on file documented as of this encounter Progress Notes Josefina Vargas PT - 01/20/2011 10:43 AM EDT Physical Therapy Progress Note Total treatment time: 10:15-10:45 minutes Total timed code treatment: 30 minutes 1 therex 1 man Follow up visit for patient with left knee pain s/p meniscectomy S: Pt reports she is doing better and it was sore after doing a lot of stairs on Thursday. Doing bike 20-30 min at L=2. She did wear #15 apron for 45min without pain . O: Upright Bike 1 resistance 5 min, heel raises x20, calf stretch 30 sec, step onto Airex balance,TKE x10 with green band, Theraball hip ext, hamstring curls x10, rocker board squats x15 STM to knee todecrease swelling, PROM of knee flexion, ice A: Tolerated treatment well P: cont physical therapy for strength, balance, proprioception, gait documented in this encounter Plan of Treatment Upcoming Encounters Date Type Specialty Care Team Description 08/07/2022 TH Visit [facility] Nahid Carl PsyD (TeleHealth) [facility] [address], [place] [address] (Wo rk) documented as of this encounter Visit Diagnoses Diagnosis Left knee pain - Primary Pain in joint, lower leg documented in this encounter Care Teams Outsole Cementer Relationship Specialty Start Date End Date Marla Wheatley APRN PCP - General 08/20/10 05/20/15 1 [place] [address] documented as of this encounter
[2022-07-27 23:23] LABS: Anaplasma phagocytophilum Negative (Negative); B. miyamotoi PCR Negative (Negative); Babesia divergens/MO-1 Negative (Negative); Babesia duncani Negative (Negative); Babesia microti Negative (Negative); Ehrlichia chaffeensis Negative (Negative); Ehrlichia ewingii/canis Negative (Negative); Ehrlichia muris eauclairensis Negative (Negative)
[2022-07-28 10:08] LABS: Lyme Ab w Rflx to Lyme Confirm Negative (Negative)
== END 2022-07-25 10:45 | disposition home or self-care (01) ==
LOC: LBO 10:46
PROVIDERS: PCP Nurse Practitioner Family; Visit Provider Family Medicine
DX: D64.9 Anemia, unspecified (principal); R10.9 Unspecified abdominal pain; R19.7 Diarrhea, unspecified
CPT/HCPCS: 36415; 80053; 87798; 85025; 86618

== ENCOUNTER → 2022-07-30 01:24 | Outpatient (CLI) | payer OTHER, SELFPAY ==
--- NOTE | 2022-07-30 08:00 | DI.MAMMO_ITS ---
Exam(s) MAMMO SCREENING EXAM: MAMMO SCREENING CLINICAL HISTORY: screening,Z12.39 TECHNIQUE: Mammograms were interpreted according to the usual protocol including computer analysis w [employer] CAD system, tomosynthesis and C-view imaging. COMPARISON: 2012 through 2020 FINDINGS: The breasts are composed of heterogeneously dense fibroglandular densities, Breast Density category C . No suspicious masses or suspicious microcalcifications are seen. No skin thickening or abnormal axillary lymph nodes are seen. There has been no significant change from prior exams. IMPRESSION: BI-RADS Category 1, Negative mammogram. Yearly screening mammography is recommended. Breast Density Category C, heterogeneously Dense. The mammogram demonstrates the patient's breast tissue is dense. Dense breast tissue is very common a nd is not abnormal but dense breast tissue can make it harder to find cancer on a mammogram. Also, de nse breast tissue may increase breast cancer risk. This information about the result of the mammogram report was provided to the patient to raise their awareness. Use this report when you speak with the patient about their risks for breast cancer, which includes their family history. At that time, you may recommend additional screening tests (Ultrasound or MRI) as they might be useful based on their r isk. A negative radiographic report should not delay biopsy if a dominant or clinically suspicious mass is present. Up to ten percent of cancers are not identified on mammography. A negative report may reinforce clinical impression. Adenosis and dense breasts may obscure an underlying neoplasm. False positive reports average 6 to 10%.
== END ==
PROVIDERS: PCP Nurse Practitioner Family; Visit Provider Nurse Practitioner Family
DX: Z12.31 Encounter for screening mammogram for malignant neoplasm of breast (principal); R92.8 Other abnormal and inconclusive findings on diagnostic imaging of breast
CPT/HCPCS: 77063; 77067

== ENCOUNTER 2022-10-15 01:20 | Outpatient (CLI) | payer OTHER, SELFPAY ==
--- NOTE | 2022-10-15 10:00 | DI.MRI_ITS ---
Exam(s) MR THORACIC SPINE WO EXAM: MR THORACIC SPINE WO CLINICAL HISTORY: POSTLAMINECTOMY SYNDROME, M96.1 TECHNIQUE: Multiplanar multisequence MRI of the thoracic spine was performed without intravenous con trast. COMPARISON: CR XR DEXA BONE DENSITY W/WO LIGIA from 07/19/2020 MR MR LUMBAR SPINE WO from 10/25/2021 FINDINGS: OSSEOUS: There are no thoracic vertebral fractures. There are no ominous osseous lesions in the thor acic vertebrae. There is artifact from anterior fusion hardware at the junction of the cervical and thoracic spinal column. THORACIC SPINAL CORD: There is no abnormal signal in the thoracic spinal cord and no evidence of foca l cord atrophy nor focal cord swelling. There is no evidence of syringomyelia nor significant spinal cord dysraphism. There is no evidence of mass at the conus medullaris. The position of the conus me dullaris is at normal level. SIGNIFICANT INDIVIDUAL LEVEL FINDINGS: T8-9: Small posterolateral right disc protrusion T5-6: Small posterolateral left disc protrusion. PARASPINAL TISSUES:Prominent right-sided nerve root sleeves evident at a few levels in the lower thor acic spine. Largest of these is on the right side exiting right neural foramen at what appears to be T11-T12 level. IMPRESSION: 1. No fractures nor abnormal marrow signal in the thoracic vertebral bodies. 2. Evidence of fusion surgery at what is either C6-7 or C7-T1 levels. 3. Small posterolateral disc protrusions at T8-T9 (right) and T5-6 (left) levels. 4. Prominent lateral nerve root sleeves at a few levels, the largest being right-sided at the T11-T1 2 level. DATA REPOSITORY:
== END 2022-10-15 01:40 ==
LOC: DI 01:20
PROVIDERS: PCP Nurse Practitioner Family; Visit Provider Anesthesiology
DX: M96.1 Postlaminectomy syndrome, not elsewhere classified (principal); Z98.1 Arthrodesis status; M51.24 Other intervertebral disc displacement, thoracic region
CPT/HCPCS: 72146

== ENCOUNTER 2023-07-17 12:50 | Outpatient (REF) | payer OTHER, SELFPAY ==
--- NOTE | 2023-07-20 11:45 | PAPFT_PTH ---
PATIENT: Fely Shaw LOC: [facility] U#:[id number] AGE/SX: 63/F ROOM: RE07/17/[address]: CHUCKY Chapman : 1960 BED: DIS: 07/17/2023 SPEC #: [id number] RECD: 07/20/23 13:01 STATUS: RANJANA REAnna #: [id number] RICHARD: 07/20/23 11:[address]: Savannah Brown DEPT: [facility] Cytology RECD BY: Enedina Medina Tissues: 1 - CX/ENDOCX FOR PAP SMEARS Procedures: PAP THIN PREP/UVM Screening HPV DNA PROBE Comments: [id number]
== END 2023-07-17 12:51 | disposition home or self-care (01) ==
LOC: LBN 12:50
PROVIDERS: PCP Nurse Practitioner Family; Visit Provider Nurse Practitioner Family
DX: Z12.4 Encounter for screening for malignant neoplasm of cervix (principal); Z11.51 Encounter for screening for human papillomavirus (HPV)
CPT/HCPCS: 88142; 87624

== ENCOUNTER 2023-07-27 03:20 | Outpatient (CLI) | payer OTHER, SELFPAY ==
[2023-07-27 07:42] LABS: Hemoglobin A1C 5.3 % (<5.7)
[2023-07-27 07:50] LABS: ALT 35 U/L (14-59); AST 23 U/L (15-37); Albumin 3.6 g/dL (3.4-5.0); Alkaline Phosphatase 126 U/L (46-116); Anion Gap 9.1 mmol/L (3-11); BUN 12 mg/dL (7-18); Bilirubin, Total 0.3 mg/dL (0.2-1.0); CO2 28.9 mmol/L (21.0-32.0); CREATININE 0.9 mg/dL (0.55-1.02); Calcium 9.9 mg/dL (8.5-10.1); Calculated LDL 133 mg/dL (<100); Chloride 102 mmol/L (98-107); Cholesterol 220 mg/dL (<200); Estimated GFR 71.83 (mL/min/1.73m2); Glucose 99 mg/dL (74-106); HDL Cholesterol 74 mg/dL (40-60); Potassium 4.7 mmol/L (3.5-5.1); Sodium 140 mmol/L (136-145); Total Protein 7.9 g/dL (6.4-8.2); Triglyceride 67 mg/dL (<150)
[2023-07-28 10:40] LABS: Hepatitis C Ab w Rflx HCV PCR Negative (Negative)
== END 2023-07-27 03:21 | disposition home or self-care (01) ==
PROVIDERS: PCP Nurse Practitioner Family; Visit Provider Nurse Practitioner Family
DX: Z00.00 Encounter for general adult medical examination without abnormal findings (principal)
CPT/HCPCS: 36415; 80053; 80061; 86803; 83036

== ENCOUNTER 2024-02-26 15:10 | Outpatient (CLI) | payer BC, SELFPAY ==
[2024-02-26 15:28] LABS: Abs Immature Grans 0.04 10^3/uL (0.0-0.06); Absolute Basophil Count 0.06 10^3/uL (0.0-0.2); Absolute Eosinophil Count 0.03 10^3/uL (0.0-0.7); Absolute Lymphocyte Count 1.48 10^3/uL (1.2-3.4); Absolute Monocyte Count 0.84 10^3/uL (0.1-0.8); Absolute Neutrophil Count 6.51 10^3/uL (1.2-6.7); Basophils % 0.7 %; Eosinophils % 0.3 %; HCT 40.8 % (36.0-46.0); HGB 13.5 g/dL (11.2-15.7); Immature Grans % 0.4 %; Lymphocytes % 16.5 %; MCH 29.3 pg (27.0-33.0); MCHC 33.1 % (32.0-36.0); MCV 89 fL (80-95); MPV 8.5 fL (8.0-11.0); Monocytes % 9.4 %; Neutrophils % 72.7 %; Platelet Count 302 10^3/uL (130-400); RDW 11.8 % (11.7-14.6); RDW-SD 37.7 fL; WBC 8.96 10^3/uL (4.4-10.8)
[2024-02-26 16:52] LABS: ALT 22 U/L (14-59); AST 15 U/L (15-37); Alkaline Phosphatase 99 U/L (46-116); Anion Gap 9.1 mmol/L (3-11); BUN 13 mg/dL (7-18); Bilirubin, Total 0.2 mg/dL (0.2-1.0); CO2 26.9 mmol/L (21.0-32.0); CREATININE 0.9 mg/dL (0.55-1.02); Calcium 9.4 mg/dL (8.5-10.1); Calculated LDL 105 mg/dL (<100); Chloride 100 mmol/L (98-107); Cholesterol 176 mg/dL (<200); Estimated GFR 71.83 (mL/min/1.73m2); Glucose 107 mg/dL (74-106); HDL Cholesterol 57 mg/dL (40-60); Sodium 136 mmol/L (136-145); Total Protein 8.1 g/dL (6.4-8.2); Triglyceride 72 mg/dL (<150)
[2024-02-29 10:59] LABS: HIV-1/2 Ag & Ab Screen Negative (Negative)
[2024-02-29 11:09] LABS: Hep B Surface Ab Positive (See Note); Hepatitis B Core Antibody Negative (Negative); Hepatitis B Surface Antigen Negative (Negative)
[2024-02-29 14:34] LABS: Lyme Ab w Rflx to Lyme Confirm Negative (Negative)
[2024-03-01 14:10] LABS: Anaplasma phagocytophilum Negative (Negative); B. miyamotoi PCR Negative (Negative); Babesia divergens/MO-1 Negative (Negative); Babesia duncani Negative (Negative); Babesia microti Negative (Negative); Ehrlichia chaffeensis Negative (Negative); Ehrlichia ewingii/canis Negative (Negative); Ehrlichia muris eauclairensis Negative (Negative)
== END 2024-02-26 15:11 | disposition home or self-care (01) ==
LOC: LBO 15:11
PROVIDERS: PCP Nurse Practitioner Family; Visit Provider Nurse Practitioner Family
DX: R50.9 Fever, unspecified (principal); Z11.59 Encounter for screening for other viral diseases; Z11.4 Encounter for screening for human immunodeficiency virus [HIV]; E78.5 Hyperlipidemia, unspecified
CPT/HCPCS: 36415; 80053; 80061; 86704; 86706; 87340; 87389; 87798; 85025; 86618